=== PATIENT | male | born 1955 | race Caucasian/White ===

== ENCOUNTER 2019-04-26 08:57 | Outpatient (CLI) | payer MEDICARE, SELFPAY ==
[2019-04-26 09:17] LABS: Add Urine Microscopic? YES; Appearance Urine Clear (Clear); Bilirubin Urine Negative (Negative); Blood Urine Negative (Negative); Color Urine Yellow (Yellow); Glucose Urine UA Negative (Negative); Ketones Urine Negative (Negative); Leukocyte Esterase Ur Trace (Negative); Nitrate Urine Negative (Negative); Protein Urine Negative (Negative); Specific Grav Ur 1.015 (1.010-1.020); Urobilinogen Urine 0.2 mg/dL (0.2-1.0); pH Urine 7.5 (5.0-8.0)
[2019-04-26 09:23] LABS: RBC Urine 0-2 /hpf (0-2); Squamous Epithelial Cell Urine Rare /hpf (Few); WBC Urine 0-3 /hpf (0-3)
[2019-04-26 09:24] LABS: Bacteria Urine None seen /hpf
[2019-04-26 09:25] LABS: Creatinine Urine 64.01 mg/dL (40-278)
[2019-04-26 09:27] LABS: Hemoglobin A1C 6.1 % (<5.7)
[2019-04-26 09:28] LABS: MALB Creatinine Ratio 21.8 mg/g (0-30)
[2019-04-26 09:58] LABS: Alanine Aminotransferase 61 U/L (16-63); Albumin Level 4.2 g/dL (3.4-5.0); Alkaline Phosphatase 81 U/L (46-116); Anion Gap 14.2 mmol/L (7-16); Aspartate Amino Transferase 42 U/L (15-37); Bilirubin,Total 1.1 mg/dL (0.00-1.00); Blood Urea Nitrogen 9 mg/dL (7-18); Calcium 9.3 mg/dL (8.5-10.1); Carbon Dioxide 28 mmol/L (21-32); Chloride 99 mmol/L (98-108); Cholesterol 157 mg/dL (0-200); Creatine Kinase 447 U/L (39-308); Estimated Glomerular Filt Rate > 60; Glucose 104 mg/dL (70-99); HDL Direct 49 mg/dL (40-60); LDL Cholesterol Calculated 94 mg/dL (<130); Osmolality Calculated 282 mOsm/kg (285-295); Potassium 4.2 mmol/L (3.5-5.1); Sodium 137 mmol/L (136-145); Total Protein 7.2 g/dL (6.4-8.2); Triglycerides 69 mg/dL (0-150)
== END 2019-04-26 08:58 | disposition home or self-care (01) ==
PROVIDERS: PCP Internal Medicine; Visit Provider Internal Medicine
DX: E78.2 Mixed hyperlipidemia (principal); I10 Essential (primary) hypertension; R73.01 Impaired fasting glucose
CPT/HCPCS: 36415; 80053; 80061; 81001; 82043; 82550; 83036

== ENCOUNTER 2019-12-04 07:52 | Outpatient (CLI) | payer MEDICARE, SELFPAY ==
[2019-12-04 08:11] LABS: Add Urine Microscopic? NO; Appearance Urine Clear (Clear); Bilirubin Urine Negative (Negative); Blood Urine Negative (Negative); Color Urine Yellow (Yellow); Glucose Urine UA Negative (Negative); Ketones Urine Negative (Negative); Leukocyte Esterase Ur Negative (Negative); Nitrate Urine Negative (Negative); Protein Urine Negative (Negative); Urobilinogen Urine 0.2 mg/dL (0.2-1.0)
[2019-12-04 08:21] LABS: Creatinine Urine 49.13 mg/dL (40-278); Hemoglobin A1C 5.5 % (<5.7); MALB Creatinine Ratio 26.4 mg/g (0-30); Microalbumin Urine Random < 13.0 mg/L
[2019-12-04 09:27] LABS: Alanine Aminotransferase 50 U/L (16-63); Alkaline Phosphatase 87 U/L (46-116); Anion Gap 11 mmol/L (8-16); Aspartate Amino Transferase 46 U/L (15-37); Bilirubin,Total 0.9 mg/dL (0.00-1.00); Blood Urea Nitrogen 11 mg/dL (7-18); Calcium 8.9 mg/dL (8.5-10.1); Carbon Dioxide 28 mmol/L (21-32); Chloride 99 mmol/L (98-108); Cholesterol 168 mg/dL (0-200); Creatine Kinase 370 U/L (39-308); Estimated Glomerular Filt Rate > 60; Glucose 104 mg/dL (70-99); HDL Direct 46 mg/dL (40-60); LDL Cholesterol Calculated 100 mg/dL (<130); Osmolality Calculated 285 mOsm/kg (285-295); Potassium 4.4 mmol/L (3.5-5.1); Prostate Specific Antigen 0.9 ng/mL (< OR = 4.0); Sodium 138 mmol/L (136-145); Total Protein 7.1 g/dL (6.4-8.2); Triglycerides 112 mg/dL (0-150)
== END 2019-12-04 07:53 | disposition home or self-care (01) ==
PROVIDERS: PCP Internal Medicine; Visit Provider Internal Medicine
DX: E78.2 Mixed hyperlipidemia (principal); E11.9 Type 2 diabetes mellitus without complications; I10 Essential (primary) hypertension; Z12.5 Encounter for screening for malignant neoplasm of prostate
CPT/HCPCS: 36415; 80053; 80061; 81003; 82043; 82550; 83036; 84153; G0103

== ENCOUNTER 2020-10-01 07:21 | Outpatient (CLI) | payer MEDICARE, OTHER, SELFPAY ==
[2020-10-01 07:43] LABS: Add Urine Microscopic? YES; Appearance Urine Clear (Clear); Bilirubin Urine 2+ (Negative); Blood Urine Negative (Negative); Color Urine Dark Yellow (Yellow); Glucose Urine UA Negative (Negative); Ketones Urine Trace (Negative); Leukocyte Esterase Ur Trace LEU/UL (Negative); Nitrate Urine Negative (Negative); Protein Urine Trace (Negative)
[2020-10-01 07:55] LABS: Bacteria Urine Trace /hpf; Mucus Urine Moderate /lpf; RBC Urine None seen /hpf (0-2); WBC Urine 0-3 /hpf (0-3)
[2020-10-01 08:42] LABS: Hemoglobin A1C 5.9 % (<5.7)
[2020-10-01 08:43] LABS: MALB Creatinine Ratio 16.4 mg/g (0-30); Microalbumin Urine Random 54.7 mg/L
[2020-10-01 09:03] LABS: Alanine Aminotransferase 52 U/L (16-63); Albumin Level 4.1 g/dL (3.4-5.0); Alkaline Phosphatase 91 U/L (46-116); Anion Gap 9 mmol/L (8-16); Aspartate Amino Transferase 37 U/L (15-37); Bilirubin,Total 1.1 mg/dL (0.00-1.00); Blood Urea Nitrogen 12 mg/dL (7-18); Calcium 9.3 mg/dL (8.5-10.1); Carbon Dioxide 31 mmol/L (21-32); Chloride 101 mmol/L (98-108); Cholesterol 161 mg/dL (0-200); Creatine Kinase 334 U/L (39-308); Estimated Glomerular Filt Rate > 60; Glucose 109 mg/dL (70-99); HDL Direct 41 mg/dL (40-60); LDL Cholesterol Calculated 96 mg/dL (<130); Osmolality Calculated 292 mOsm/kg (285-295); Potassium 4.1 mmol/L (3.5-5.1); Sodium 141 mmol/L (136-145); Total Protein 7.2 g/dL (6.4-8.2); Triglycerides 120 mg/dL (0-150)
== END 2020-10-01 07:22 | disposition home or self-care (01) ==
LOC: CHSLAB 07:25
PROVIDERS: PCP Internal Medicine; Visit Provider Internal Medicine
DX: E78.5 Hyperlipidemia, unspecified (principal); I10 Essential (primary) hypertension; R73.01 Impaired fasting glucose; R97.20 Elevated prostate specific antigen [PSA]
CPT/HCPCS: 36415; 80053; 80061; 81001; 82043; 82550; 83036; 84153

== ENCOUNTER 2021-04-09 08:06 | Outpatient (CLI) | payer MEDICARE, OTHER, SELFPAY ==
[2021-04-09 08:35] LABS: Add Urine Microscopic? NO; Appearance Urine Clear (Clear); Bilirubin Urine Negative (Negative); Blood Urine Negative (Negative); Color Urine Light Yellow (Yellow); Glucose Urine UA Negative (Negative); Ketones Urine Negative (Negative); Leukocyte Esterase Ur Negative (Negative); Nitrate Urine Negative (Negative); Protein Urine Negative (Negative); Specific Grav Ur 1.015 (1.010-1.020); Urobilinogen Urine 0.2 mg/dL (0.2-1.0); pH Urine 6.5 (5.0-8.0)
[2021-04-09 08:48] LABS: Creatinine Urine 95.44 mg/dL (40-278)
[2021-04-09 09:07] LABS: Alanine Aminotransferase 48 U/L (16-63); Albumin Level 3.9 g/dL (3.4-5.0); Alkaline Phosphatase 88 U/L (46-116); Anion Gap 10 mmol/L (8-16); Aspartate Amino Transferase 42 U/L (15-37); Bilirubin,Total 1.2 mg/dL (0.00-1.00); Blood Urea Nitrogen 11 mg/dL (7-18); Carbon Dioxide 30 mmol/L (21-32); Chloride 99 mmol/L (98-108); Cholesterol 181 mg/dL (0-200); Creatine Kinase 411 U/L (39-308); Estimated Glomerular Filt Rate > 60; Glucose 108 mg/dL (70-99); HDL Direct 44 mg/dL (40-60); LDL Cholesterol Calculated 112 mg/dL (<130); Osmolality Calculated 288 mOsm/kg (285-295); Potassium 4.3 mmol/L (3.5-5.1); Sodium 139 mmol/L (136-145); Total Protein 7.3 g/dL (6.4-8.2); Triglycerides 127 mg/dL (0-150)
== END 2021-04-09 08:07 | disposition home or self-care (01) ==
LOC: CHSLAB 08:08
PROVIDERS: PCP Internal Medicine; Visit Provider Internal Medicine
DX: E78.2 Mixed hyperlipidemia (principal); R73.01 Impaired fasting glucose; I10 Essential (primary) hypertension
CPT/HCPCS: 36415; 80053; 80061; 81003; 82043; 82550; 83036

== ENCOUNTER 2021-11-04 07:25 | Outpatient (CLI) | payer MEDICARE, OTHER, SELFPAY ==
[2021-11-04 07:36] LABS: Add Urine Microscopic? NO; Appearance Urine Clear (Clear); Basophils Absolute Auto 0.01 K/mm3 (0.00-0.10); Basophils Percent Auto 0.1 % (0.0-1.0); Bilirubin Urine Negative (Negative); Blood Urine Negative (Negative); Color Urine Yellow (Yellow); Eosinophils Absolute Auto 0.24 K/mm3 (0.02-0.50); Eosinophils Percent Auto 2.9 % (1.0-6.0); Glucose Urine UA Negative (Negative); Hematocrit 52.2 % (37.0-46.0); Hemoglobin 17.6 g/dL (12.4-15.3); Immature Granulocyte Absolute 0.03 K/mm3 (0.00-0.00); Immature Granulocyte Percent A 0.4 % (0.0-0.0); Ketones Urine Negative (Negative); Leukocyte Esterase Ur Negative LEU/UL (Negative); Lymphocytes Absolute Auto 1.47 K/mm3 (1.10-4.50); Lymphocytes Percent Auto 17.8 % (18.0-42.0); Mean Corpuscular HGB Conc 33.7 g/dL (32.0-36.0); Mean Corpuscular Hemoglobin 33.9 pg (27.0-31.0); Mean Corpuscular Volume 100.6 fL (78.0-102.0); Mean Platelet Volume 8.8 fl (8.7-11.0); Monocytes Absolute Auto 1.07 K/mm3 (0.10-0.90); Neutrophils Absolute Auto 5.4 K/mm3 (1.7-7.2); Neutrophils Percent Auto 65.8 % (50.0-70.0); Nitrate Urine Negative (Negative); Platelet Count Result 208 K/mm3 (150-420); Protein Urine Negative (Negative); Red Blood Count 5.19 M/mm3 (4.70-6.10); Red Cell Distribution Width 12.5 % (11.6-14.4); Specific Grav Ur 1.025 (1.010-1.020); White Blood Count 8.2 K/mm3 (4.8-10.8)
[2021-11-04 07:45] LABS: Hemoglobin A1C 5.9 % (<5.7)
[2021-11-04 08:57] LABS: Alanine Aminotransferase 41 U/L (16-63); Alkaline Phosphatase 99 U/L (46-116); Anion Gap 6 mmol/L (8-16); Aspartate Amino Transferase 36 U/L (15-37); Bilirubin,Total 1.1 mg/dL (0.00-1.00); Blood Urea Nitrogen 14 mg/dL (7-18); Calcium 8.8 mg/dL (8.5-10.1); Carbon Dioxide 33 mmol/L (21-32); Chloride 97 mmol/L (98-108); Cholesterol 160 mg/dL (0-200); Creatine Kinase 432 U/L (39-308); Estimated Glomerular Filt Rate > 60; Glucose 100 mg/dL (70-99); HDL Direct 47 mg/dL (40-60); LDL Cholesterol Calculated 92 mg/dL (<130); Osmolality Calculated 282 mOsm/kg (285-295); Potassium 4.1 mmol/L (3.5-5.1); Prostate Specific Antigen 1.3 ng/mL (< OR = 4.0); Sodium 136 mmol/L (136-145); Triglycerides 107 mg/dL (0-150)
[2021-11-04 13:02] LABS: MALB Creatinine Ratio 29.7 mg/g (0-30); Microalbumin Urine Random 66.2 mg/L
== END 2021-11-04 07:26 | disposition home or self-care (01) ==
LOC: CHSLAB 07:27
PROVIDERS: PCP Internal Medicine; Visit Provider Internal Medicine
DX: E78.2 Mixed hyperlipidemia (principal); I10 Essential (primary) hypertension; Z12.5 Encounter for screening for malignant neoplasm of prostate; N39.0 Urinary tract infection, site not specified; E11.9 Type 2 diabetes mellitus without complications
CPT/HCPCS: 36415; 80053; 80061; 81003; 82043; 82550; 83036; 84153; 85025; G0103

== ENCOUNTER 2022-04-10 15:06 | Emergency (ER) | payer MEDICARE, OTHER, SELFPAY ==
--- NOTE | ~2022-04-10 | XR_ITS ---
EXAM: XR hand LT min 3V DATE: 04/10/2022 15:56 HISTORY: DEEP LACERATION TO LATERAL BERRY SURFACE, PAIN TO THIS AREA . COMPARISON: None available. FINDINGS: Normal mineralization. No fracture or dislocation. No lytic or blastic lesion. Scattered d egenerative changes. No radiopaque foreign body. No erosion or periosteal change. Soft tissues within normal limits. IMPRESSION: No acute osseous finding in the left hand. Reviewed, dictated and finalized at location [facility] [employer] [facility]
[2022-04-10 15:10] VITALS: BP 153/86; PULSE 93; RESP 20; TEMP 37.2; O2SAT 90
--- NOTE | 2022-04-10 15:29 | ED.GENADULT ---
HPI - General Adult General Chief complaint: Extremity Injury, Upper Stated complaint: cut L hand Time Seen by Provider: 04/10/22 15:25 Source: patient Mode of arrival: ambulatory Limitations: no limitations History of Present Illness HPI narrative: Patient was working on a spring his carotids door with a tension-like go and caught him in his left dominant hand and cut the inside of his palm between the thumb and index finger. This caused flap laceration about 2 cm 2.5 cm long. Denies any loss of function says his tingling just a little bit on the wound. Mild pain. Denies any previous injury denies any wrist pain other other injuries . Patient has been healthy eating drinking stooling and voiding fine without rash or itching. Walking talking seeing and hearing fine. No cough fever sore throat runny nose or any other symptoms. Related Data Home Medications Medication Instructions Recorded Confirmed atorvastatin 40 mg tablet 40 mg PO DAILY 04/10/22 04/10/22 lisinopril 10 1 tablet PO DAILY 04/10/22 04/10/22 mg-hydrochlorothiazide 12.5 mg tablet Allergies Allergy/AdvReac Type Severity Reaction Status Date / Time No Known Allergies Allergy Verified 04/10/22 15:16 Review of Systems Review of Systems: review of systems Per HPI Exam Const: General: healthy appearing Nutritional Appearance: well nourished Orientation/consciousness: patient oriented x3 Limitations: no limitations Other: White male appears in no apparent distress his left hand shows a 2-2.5 cm flap laceration to the webspace between his thumb and index finger. Is mildly tender no active bleeding no foreign body seen. Is good strong strength with regards to flexion and extension of his tendons and fingers and wrist. Normal capillary refill. Radial pulses +2. He has full range of motion his fingers and wrist. He has no snuffbox tenderness. There is no swelling. He has normal sensation regards to radial median and ulnar nerve testing for motor and sensory. HENMT: Head: normal to inspection Ears: external ears normal Face/Nose/Sinus: Normal external nose present Face and sinus: normal facial exam Course Vital Signs Vital signs: Vital Signs Temperature 37.2 C 04/10/22 15:10 Pulse Rate 93 04/10/22 15:10 Respiratory Rate 20 04/10/22 15:10 Blood Pressure 153/86 H 04/10/22 15:10 Pulse Oximetry 90 04/10/22 15:10 Oxygen Delivery Room Air 04/10/22 15:10 Temperature 37.2 C 04/10/22 15:10 Pulse Rate 93 04/10/22 15:10 Respiratory Rate 20 04/10/22 15:10 Blood Pressure 153/86 H 04/10/22 15:10 Pulse Oximetry 90 04/10/22 15:10 Oxygen Delivery Room Air 04/10/22 15:10 Procedures Laceration Laceration 1: Date: 04/10/22 Time: 16:25 Site: hand Side (If applicable): left Size (cm): 2.5 Description: flap Depth: simple, single layer Local Anesthetic: lidocaine 1% ( 8 mL without epinephrine) Amount of anesthesia used (mL): 8 Pre-repair: wound explored and irrigated extensively ====== Skin Level ====== Skin layer closed with: nylon Size (cm): 4-0 Number of sutures: 5 Technique: simple, interrupted ====== Subcutaneous Layer ====== Technique: simple, interrupted ====== Muscle Layer ====== ====== Tendon Layer ====== Dressing: nonstick dressing was applied patient tolerated procedure well. Medical Decision Making MDM Narrative Medical decision making narrative: Patient sustained a add laceration to his left non dominant hand, fortunately between webspace of his thumb and index finger and did not injure any vital structures. Stay no loss of function. Is given a tetanus shot is given 5 sutures to repair his 2.5 cm laceration. Differential Diagnosis Differential Diagnosis: Fracture dislocation laceration infection foreign body Vital Signs Vital Signs: Vital Signs T
[2022-04-10] MEDS: TETANUS,DIPHTHERIA,AC PERTUSSIS ADULT 0.5 ML (ADACEL) IM (15:37)
[2022-04-10] MEDS: LIDOCAINE HCL 1% LOCAL INJ 10 ML VIAL INFILTRATE (15:38)
[2022-04-10 16:31] VITALS: BP 153/86; PULSE 89; RESP 16; TEMP 36.4; O2SAT 90
== END 2022-04-10 16:39 | disposition home or self-care (01) ==
PROVIDERS: Emergency Provider Emergency Medicine; PCP Internal Medicine
DX: S61.412A Laceration without foreign body of left hand, initial encounter (principal); W22.8XXA Striking against or struck by other objects, initial encounter; Z23 Encounter for immunization
CPT/HCPCS: 12001; 73130; 90471; 90715; 99283

== ENCOUNTER 2022-06-21 07:30 | Outpatient (CLI) | payer MEDICARE, OTHER, SELFPAY ==
[2022-06-21 07:46] LABS: Basophils Absolute Auto 0.02 K/mm3 (0.00-0.10); Basophils Percent Auto 0.2 % (0.0-1.0); Eosinophils Absolute Auto 0.27 K/mm3 (0.02-0.50); Eosinophils Percent Auto 3.4 % (1.0-6.0); Hematocrit 55.8 % (37.0-46.0); Hemoglobin 18.4 g/dL (12.4-15.3); Immature Granulocyte Absolute 0.03 K/mm3 (0.00-0.00); Immature Granulocyte Percent A 0.4 % (0.0-0.0); Lymphocytes Absolute Auto 1.33 K/mm3 (1.10-4.50); Lymphocytes Percent Auto 16.6 % (18.0-42.0); Mean Corpuscular Hemoglobin 33.5 pg (27.0-31.0); Mean Corpuscular Volume 101.5 fL (78.0-102.0); Mean Platelet Volume 9.3 fl (8.7-11.0); Monocytes Absolute Auto 1.07 K/mm3 (0.10-0.90); Monocytes Percent Auto 13.4 % (2.0-11.0); Neutrophils Absolute Auto 5.3 K/mm3 (1.7-7.2); Platelet Count Result 213 K/mm3 (150-420); Red Cell Distribution Width 13.1 % (11.6-14.4)
[2022-06-21 07:55] LABS: Appearance Urine Clear (Clear); Bilirubin Urine Negative (Negative); Blood Urine Negative (Negative); Color Urine Yellow (Yellow); Glucose Urine UA Negative (Negative); Ketones Urine Negative (Negative); Leukocyte Esterase Ur Negative (Negative); Nitrate Urine Negative (Negative); Protein Urine Negative (Negative); Specific Grav Ur 1.015 (1.010-1.020); Urobilinogen Urine 0.2 mg/dL (0.2-1.0)
[2022-06-21 08:02] LABS: Add Urine Microscopic? NO; Hemoglobin A1C 5.8 % (<5.7)
[2022-06-21 08:26] LABS: Alanine Aminotransferase 37 U/L (16-63); Albumin Level 3.8 g/dL (3.4-5.0); Alkaline Phosphatase 86 U/L (46-116); Anion Gap 7 mmol/L (8-16); Aspartate Amino Transferase 31 U/L (15-37); Bilirubin,Total 0.8 mg/dL (0.00-1.00); Blood Urea Nitrogen 14 mg/dL (7-18); Carbon Dioxide 33 mmol/L (21-32); Chloride 100 mmol/L (98-108); Cholesterol 165 mg/dL (0-200); Creatine Kinase 305 U/L (39-308); Estimated Glomerular Filt Rate > 60; Glucose 111 mg/dL (70-99); HDL Direct 44 mg/dL (40-60); LDL Cholesterol Calculated 98 mg/dL (<130); Osmolality Calculated 291 mOsm/kg (285-295); Potassium 4.5 mmol/L (3.5-5.1); Sodium 140 mmol/L (136-145); Total Protein 7.2 g/dL (6.4-8.2); Triglycerides 115 mg/dL (0-150)
== END 2022-06-21 07:31 | disposition home or self-care (01) ==
LOC: CHSLAB 07:32
PROVIDERS: PCP Internal Medicine; Visit Provider Internal Medicine
DX: I10 Essential (primary) hypertension (principal); E78.2 Mixed hyperlipidemia; R73.01 Impaired fasting glucose; M54.50 Low back pain, unspecified
CPT/HCPCS: 36415; 80053; 80061; 81003; 82550; 83036; 85025

== ENCOUNTER 2022-09-07 07:26 | Outpatient (CLI) | payer MEDICARE, SELFPAY ==
--- NOTE | ~2022-09-07 | XR_ITS ---
Clinical Indication: Obesity, preoperative evaluation PA and lateral views of the chest: Comparison: 04/28/2011 Findings: Stable calcified right basilar granuloma present. The lungs are otherwise clear, without ev idence of focal consolidation or pleural effusion. Cardiomediastinal silhouette is stable. Bones and soft tissues are unremarkable. Impression: No significant abnormality seen. Reviewed, dictated and finalized at [facility]. Impression: No significant abnormality seen.
--- NOTE | 2022-09-07 07:51 | ECG_ITS ---
Measurements Intervals [place] Rate: 90 P: 67 [place]: 144 QRS: 248 QRSD: 113 T: 55 QT: 367 QTc: 450 Interpretive Statements SINUS RHYTHM RIGHT AXIS DEVIATION INCOMPLETE RIGHT BUNDLE BRANCH BLOCK CANNOT RULE OUT SEPTAL INFARCT, AGE INDETERMINATE BASELINE ARTIFACT- III, AVF ABNORMAL ECG NO PREVIOUS ECG AVAILABLE FOR COMPARISON Electronically Signed On 09-07-2022 9:23:01 CDT by Oseas Rick D.O.
[2022-09-07 07:55] LABS: Basophils Absolute Auto 0.03 K/mm3 (0.00-0.10); Basophils Percent Auto 0.4 % (0.0-1.0); Eosinophils Percent Auto 2.7 % (1.0-6.0); Hematocrit 59.2 % (37.0-46.0); Hemoglobin 19.8 g/dL (12.4-15.3); Immature Granulocyte Absolute 0.01 K/mm3 (0.00-0.00); Immature Granulocyte Percent A 0.1 % (0.0-0.0); Lymphocytes Percent Auto 14.7 % (18.0-42.0); Mean Corpuscular HGB Conc 33.4 g/dL (32.0-36.0); Mean Corpuscular Hemoglobin 34.2 pg (27.0-31.0); Mean Corpuscular Volume 102.2 fL (78.0-102.0); Mean Platelet Volume 8.9 fl (8.7-11.0); Monocytes Absolute Auto 0.84 K/mm3 (0.10-0.90); Monocytes Percent Auto 11.3 % (2.0-11.0); Neutrophils Absolute Auto 5.3 K/mm3 (1.7-7.2); Neutrophils Percent Auto 70.8 % (50.0-70.0); Platelet Count Result 219 K/mm3 (150-420); Red Blood Count 5.79 M/mm3 (4.70-6.10); Red Cell Distribution Width 13.7 % (11.6-14.4); White Blood Count 7.5 K/mm3 (4.8-10.8)
[2022-09-07 08:09] LABS: Partial Thromboplastin Time 27.4 SEC (23.90-30.70); Prothrombin Time 11.2 Seconds (9.50-12.10)
[2022-09-07 08:25] LABS: Hemoglobin A1C 5.8 % (<5.7)
[2022-09-07 08:54] LABS: Alanine Aminotransferase 47 U/L (16-63); Alkaline Phosphatase 97 U/L (46-116); Anion Gap 9 mmol/L (8-16); Aspartate Amino Transferase 41 U/L (15-37); Bilirubin,Total 1.4 mg/dL (0.00-1.00); Blood Urea Nitrogen 11 mg/dL (7-18); Calcium 9.4 mg/dL (8.5-10.1); Carbon Dioxide 32 mmol/L (21-32); Chloride 100 mmol/L (98-108); Cholesterol 166 mg/dL (0-200); Estimated Glomerular Filt Rate > 60; Ferritin 498 ng/mL (26-388); Glucose 109 mg/dL (70-99); HDL Direct 47 mg/dL (40-60); Iron 149 ug/dL (65-175); LDL Cholesterol Calculated 100 mg/dL (<130); Magnesium 1.9 mg/dL (1.8-2.4); Osmolality Calculated 292 mOsm/kg (285-295); Percent Iron Saturation 48 % (12-57); Potassium 4.3 mmol/L (3.5-5.1); Sodium 141 mmol/L (136-145); Thyroid Stimulating Hormone 4.05 uIU/mL (0.36-3.74); Total Protein 7.3 g/dL (6.4-8.2); Triglycerides 97 mg/dL (0-150); Vitamin B12 378 pg/mL (193-986)
[2022-09-07 09:20] LABS: Folic Acid 18.8 ng/mL (8.6->20)
[2022-09-10 09:37] LABS: Transferrin 248 mg/dL (188-341)
[2022-09-12 11:18] LABS: Vitamin B1 9 nmol/L (8-30)
[2022-09-12 23:50] LABS: Parathyroid Intact 54 pg/mL (14-64)
[2022-09-13 19:26] LABS: Vitamin D 25 Hydroxy 13 ng/mL (30-100)
== END 2022-09-07 07:27 | disposition home or self-care (01) ==
PROVIDERS: PCP Internal Medicine
DX: Z01.818 Encounter for other preprocedural examination (principal); E66.01 Morbid (severe) obesity due to excess calories; I45.19 Other right bundle-branch block; R94.31 Abnormal electrocardiogram [ECG] [EKG]
CPT/HCPCS: 36415; 71046; 80053; 80061; 82306; 82607; 82728; 82746; 83036; 83540; 83550; 83735; 83970; 84425; 84443; 84466; 85025; 85610; 85730; 93005

== ENCOUNTER 2022-10-14 10:14 | Outpatient (CLI) | payer MEDICARE, SELFPAY ==
[2022-10-14 11:14] LABS: Alanine Aminotransferase 75 U/L (16-63); Albumin Level 4.2 g/dL (3.4-5.0); Alkaline Phosphatase 94 U/L (46-116); Anion Gap 10 mmol/L (8-16); Aspartate Amino Transferase 70 U/L (15-37); Bilirubin,Total 1.4 mg/dL (0.00-1.00); Blood Urea Nitrogen 15 mg/dL (7-18); Calcium 9.5 mg/dL (8.5-10.1); Carbon Dioxide 29 mmol/L (21-32); Chloride 99 mmol/L (98-108); Estimated Glomerular Filt Rate > 60; Glucose 97 mg/dL (70-99); Osmolality Calculated 286 mOsm/kg (285-295); Potassium 4.4 mmol/L (3.5-5.1); Sodium 138 mmol/L (136-145); Total Protein 7.2 g/dL (6.4-8.2)
== END 2022-10-14 10:15 | disposition home or self-care (01) ==
LOC: CHSLAB 10:17
PROVIDERS: PCP Internal Medicine
DX: R89.9 Unspecified abnormal finding in specimens from other organs, systems and tissues (principal)
CPT/HCPCS: 36415; 80053

== ENCOUNTER 2022-10-26 07:50 | Outpatient (CLI) | payer MEDICARE, SELFPAY ==
[2022-10-26 08:01] LABS: Hematocrit 51.3 % (37.0-46.0); Hemoglobin 17.2 g/dL (12.4-15.3); Mean Corpuscular HGB Conc 33.5 g/dL (32.0-36.0); Mean Corpuscular Hemoglobin 33.7 pg (27.0-31.0); Mean Corpuscular Volume 100.4 fL (78.0-102.0); Mean Platelet Volume 9.3 fl (8.7-11.0); Platelet Count Result 229 K/mm3 (150-420); Red Blood Count 5.11 M/mm3 (4.70-6.10); White Blood Count 6.5 K/mm3 (4.8-10.8)
[2022-10-26 08:34] LABS: Band Neutrophils Percent 0 % (0-6); Eosinophils Absolute Manual 0.13 K/mm3 (0.02-0.5); Eosinophils Percent Manual 2 % (1-6); Lymphocytes Absolute Manual 1.36 K/mm3 (1.1-4.5); Lymphocytes Percent Manual 21 % (18-44); Monocytes Absolute Manual 1.23 K/mm3 (0.1-0.90); Monocytes Percent Manual 19 % (3-9); Neutrophils Percent Manual 57 % (46-73); Total Cells Counted 100
[2022-10-26 08:35] LABS: Basophils Absolute Manual 0.06 K/mm3 (0-0.1); Basophils Percent Manual 1 % (0-1); Platelet Estimate Adequate (Adequate)
== END 2022-10-26 07:51 | disposition home or self-care (01) ==
LOC: CHSLAB 07:54
PROVIDERS: PCP Internal Medicine
DX: D58.2 Other hemoglobinopathies (principal)
CPT/HCPCS: 36415; 85025

== ENCOUNTER 2022-11-02 07:25 | Outpatient (CLI) | payer MEDICARE, SELFPAY ==
--- NOTE | ~2022-11-02 | NM_ITS ---
EXAMINATION: NM osorio stress w perfusion DATE: 11/02/2022 10:41 INDICATION: Dyspnea on exertion TECHNIQUE: Rest images were obtained in supine position following intravenous administration of 9.7 m Ci Tc99m tetrofosmin (Myoview). The patient was infused intravenously with Lexiscan (Regadenoson). Th en, 30.5 mCi Tc99m tetrofosmin (Myoview) was administered intravenously, and stress images were obtai nathaniel initially in supine position with repeat images performed in the prone position. Data was reconst ructed into short axis and horizontal and vertical long axis SPECT images. Gated SPECT images were al so obtained. COMPARISON: None. FINDINGS: There is a small perfusion defect along the inferior wall on the rest images and larger def ect on the post stress images, both obtained in the supine position which normalize on prone imaging consistent with diaphragmatic attenuation artifact. No significant perfusion defects on the prone pos t stress imaging to suggest ischemia or infarct. There is normal left ventricular chamber size, wall motion and ejection fraction. Left ventricular ejection fraction measures >70%. IMPRESSION: 1. Likely diaphragmatic attenuation artifact on imaging obtained in the supine position. Normal myoca rdial perfusion on post stress imaging obtained in the prone position without evident perfusion defec ts to suggest ischemia or infarct. 2. Left ventricular ejection fraction measuring >70%. Reviewed, dictated and finalized at location A. IMPRESSION: 1. Likely diaphragmatic attenuation artifact on imaging obtained in the supine position. Normal myocardial perfusion on post stress imaging obtained in the pr one position without evident perfusion defects to suggest ischemia or infarct. 2. Left ventricular ejection fraction measuring >70%.
--- NOTE | 2022-11-02 07:31 | ECHO_ITS ---
Patient Info Name: Jayesh Anderson Age: 67 years : 1955 Gender: Male Ht: 72 in Wt: 350 lbs BSA: 2.92 m2 HR: 83 bpm BP: 144 / 81 mmHg Heart Rhythm: Sinus Rhythm Technical Quality: Fair Exam Date: 11/02/2022 7:42 AM Exam Location: [facility] Pulmonary Patient Status: Outpatient Admit Date: 11/02/2022 Staff Ordering Physician: Oseas Rick DO [employer] Installer: Lakeshia Valentine RDCS Attending Provider: Oseas Rick DO Referring Physician: Prabhjot SEGOVIA; Exam Type: CA echo dop color flow w con Study Info Indications R06.09 - Other forms of dyspnea Complete two-dimensional, color flow and Doppler transthoracic echocardiogram is performed with contrast to opacify the left ventricle and to improve the deliniation of the left ventricle endocardial borders. Contrast/Agitated Saline Contrast/Ag. Saline: Definity Amount: 3.00 ml Administered By: Lakeshia Valentine RDCS Existing IV Access: Yes IV Access Condition: patent with no signs of infiltration Summary 1. Definity contrast administered improved wall motion interpretation. 2. Ventricular septum is sigmoid shaped. No LVOT obstruction. 3. Left ventricular chamber dimension is normal. 4. Left ventricular systolic function is normal, estimated at 60-65%. 5. The left ventricular diastolic function is grade I diastolic dysfunction. 6. E/e' 15 is elevated. 7. The aortic valve is not well visualized. Cannot determine number of aortic valve leaflets. 8. There is mild aortic valve stenosis based on a peak velocity of 261.83 cm/s, mean gradient of 13 mmHg, and aortic valve area of 1.74 cm2. 9. There is moderate aortic valve sclerosis. 10. No pulmonary hypertension, estimated pulmonary arterial systolic pressure is 16 mmHg. Left Ventricle E/e' 15 is elevated. Ventricular septum is sigmoid shaped. No LVOT obstruction. Definity contrast administered improved wall motion interpretation. Left ventricular chamber dimension is normal. Left ventricular systolic function is normal, estimated at 60-65%. The left ventricular diastolic function is grade I diastolic dysfunction. Right Ventricle Right ventricular systolic function is normal and with normal TAPSE 3.2 cm. Right ventricular chamber dimension is normal. Left Atria Left atrial chamber dimension is normal. Right Atria Right atrial chamber dimension is normal. Aortic Valve The aortic valve is not well visualized. Cannot determine number of aortic valve leaflets. There is mild aortic valve stenosis based on a peak velocity of 261.83 cm/s, mean gradient of 13 mmHg, and aortic valve area of 1.74 cm2. There is moderate aortic valve sclerosis. There is no aortic valve regurgitation. Pulmonic Valve There is no pulmonic regurgitation. Mitral Valve There is no mitral valve stenosis. There is no mitral valve regurgitation. Tricuspid Valve There is no tricuspid valve regurgitation. No pulmonary hypertension, estimated pulmonary arterial systolic pressure is 16 mmHg. Pericardium/Pleural There is no pericardial effusion. Inferior Vena Cava Normal inferior vena cava with >50% collapse upon inspiration consistent with normal right atrial pressure, 5 mmHg. Aorta The aortic root size at the sinus of Valsalva is normal. Left Ventricular Outflow Tract Name Value Normal LVOT 2D
--- NOTE | 2022-11-02 07:33 | EST_ITS ---
Patient Info Name: Jayesh Anderson Age: 67 years : 1955 Gender: Male Ht: 72 in Wt: 350 lbs BSA: 2.92 m2 HR: 77 bpm BP: 123 / 71 mmHg Heart Rhythm: Sinus Rhythm Exam Date: 11/02/2022 9:19 AM Exam Location: [facility] Stress Patient Status: Outpatient Admit Date: 11/02/2022 Staff Ordering Physician: Oseas Rick DO Attending Provider: Oseas Rick DO Exercise Technologist: Tricia Mark CT Exercise Physician: Oseas Rick DO Exam Type: CA stress osorio w NM Study Info Indications R06.09 - Other forms of dyspnea A regadenoson stress test was performed. Summary 1. 1. Negative lexiscan stress test for ischemic ST changes by ECG criteria. 2. 2. Stable hemodynamics throughout the test. 3. 3. Nuclear scan to follow and will be reported separately. Please correlate with it. 4. 4. Patient informed of the above results. Protocol: Lexiscan Stress ECG Details Stage: REST Duration (min): 1 min : 31 sec HR (bpm): 75 SBP (mmHg): 123 DBP (mmHg): 71 Stage: REST Duration (min): 31 min : 23 sec HR (bpm): 78 SBP (mmHg): 123 DBP (mmHg): 71 Stage: STAGE 1 Duration (min): 1 min : 0 sec HR (bpm): 93 SBP (mmHg): 118 DBP (mmHg): 59 Stage: RECOVERY Duration (min): 1 min : 0 sec HR (bpm): 91 SBP (mmHg): 118 DBP (mmHg): 59 Stage: RECOVERY Duration (min): 2 min : 0 sec HR (bpm): 84 SBP (mmHg): 118 DBP (mmHg): 59 Stage: RECOVERY Duration (min): 3 min : 0 sec HR (bpm): 85 SBP (mmHg): 118 DBP (mmHg): 59 Stage: RECOVERY Duration (min): 3 min : 17 sec HR (bpm): 88 SBP (mmHg): 118 DBP (mmHg): 59 Rest HR: 78 bpm Peak HR: 94 bpm Rest Sys BP: 123 mmHg Peak Sys BP: 118 mmHg Max Pred HR: 151 bpm % Max Pred HR: 62 % Target HR: 128 bpm Max RPP: 11,092 bpm*mmHg Termination Reason: Completed protocol Cardiac Symptoms: None Total Time: 1 min : 0 sec Rest [place] BP: 71 mmHg Peak [place] BP: 59 mmHg Total Dose: 0.4 mg Resting ECG Sinus rhythm, RBBB. Stress ECG No ST changes. Arrhythmias None. Report Signatures
[2022-11-02] MEDS: PERFLUTREN LIPID MICROSPHERES 1.5 ML VIAL DILUTED TO 10 ML TOTAL VOLUME IV PUSH (08:31)
--- NOTE | 2022-11-02 08:59 | IVDEFINITY ---
Prior to administration of IV Definity the patient was educated on the risks and benefits of the imaging enhancing agent including potential adverse side effects. The patient verbalized understanding. Allergies were verified. No exclusion criteria were identified and at least one of the following inclusion criteria were met: 1) physician request, 2) patient technically difficult to image (per the [place] [employer]chocardi[employer] guidelines of two or more segments not discernable within the apical view), or 3) questionable left ventricular function. ?
== END 2022-11-02 07:26 | disposition home or self-care (01) ==
PROVIDERS: PCP Internal Medicine; Visit Provider Internal Medicine Cardiovascular Disease
DX: R06.09 Other forms of dyspnea (principal); R94.39 Abnormal result of other cardiovascular function study; I35.8 Other nonrheumatic aortic valve disorders
CPT/HCPCS: 78452; 93017; A9502; C8929; J2785; Q9957

== ENCOUNTER 2022-12-30 10:08 | Outpatient (CLI) | payer MEDICARE, SELFPAY ==
[2022-12-30 10:24] LABS: Appearance Urine Clear (Clear); Bilirubin Urine Negative (Negative); Blood Urine Negative (Negative); Color Urine Yellow (Yellow); Glucose Urine UA Negative (Negative); Ketones Urine Negative (Negative); Leukocyte Esterase Ur Negative (Negative); Nitrate Urine Negative (Negative); Protein Urine Negative (Negative)
[2022-12-30 10:26] LABS: Basophils Absolute Auto 0.03 K/mm3 (0.00-0.10); Basophils Percent Auto 0.4 % (0.0-1.0); Eosinophils Absolute Auto 0.17 K/mm3 (0.02-0.50); Eosinophils Percent Auto 2.4 % (1.0-6.0); Hematocrit 42.9 % (37.0-46.0); Hemoglobin 14.9 g/dL (12.4-15.3); Immature Granulocyte Absolute 0.03 K/mm3 (0.00-0.00); Immature Granulocyte Percent A 0.4 % (0.0-0.0); Lymphocytes Absolute Auto 1.16 K/mm3 (1.10-4.50); Lymphocytes Percent Auto 16.2 % (18.0-42.0); Mean Corpuscular HGB Conc 34.7 g/dL (32.0-36.0); Mean Corpuscular Hemoglobin 34.9 pg (27.0-31.0); Mean Corpuscular Volume 100.5 fL (78.0-102.0); Mean Platelet Volume 9.3 fl (8.7-11.0); Monocytes Absolute Auto 0.86 K/mm3 (0.10-0.90); Neutrophils Absolute Auto 4.9 K/mm3 (1.7-7.2); Neutrophils Percent Auto 68.6 % (50.0-70.0); Platelet Count Result 208 K/mm3 (150-420); Red Blood Count 4.27 M/mm3 (4.70-6.10); Red Cell Distribution Width 12.9 % (11.6-14.4); White Blood Count 7.2 K/mm3 (4.8-10.8)
[2022-12-30 10:27] LABS: Add Urine Microscopic? NO
[2022-12-30 10:34] LABS: Creatinine Urine 96.53 mg/dL (40-278); MALB Creatinine Ratio 28.2 mg/g (0-30); Microalbumin Urine Random 27.3 mg/L
[2022-12-30 10:38] LABS: Hemoglobin A1C 5.9 % (<5.7)
[2022-12-30 11:11] LABS: Alanine Aminotransferase 73 U/L (16-63); Albumin Level 4.1 g/dL (3.4-5.0); Alkaline Phosphatase 100 U/L (46-116); Anion Gap 7 mmol/L (8-16); Aspartate Amino Transferase 40 U/L (15-37); Bilirubin,Total 1.6 mg/dL (0.00-1.00); Blood Urea Nitrogen 11 mg/dL (7-18); Calcium 9.6 mg/dL (8.5-10.1); Carbon Dioxide 34 mmol/L (21-32); Chloride 97 mmol/L (98-108); Cholesterol 167 mg/dL (0-200); Creatine Kinase 306 U/L (39-308); Estimated Glomerular Filt Rate > 60; Glucose 96 mg/dL (70-99); HDL Direct 64 mg/dL (40-60); LDL Cholesterol Calculated 87 mg/dL (<130); Osmolality Calculated 285 mOsm/kg (285-295); Potassium 4.2 mmol/L (3.5-5.1); Sodium 138 mmol/L (136-145); Total Protein 7.5 g/dL (6.4-8.2); Triglycerides 80 mg/dL (0-150)
[2023-01-03 18:11] LABS: Vitamin D 25 Hydroxy 56 ng/mL (30-100)
== END 2022-12-30 10:09 | disposition home or self-care (01) ==
LOC: CHSLAB 10:14
PROVIDERS: PCP Internal Medicine
DX: E78.2 Mixed hyperlipidemia (principal); D75.1 Secondary polycythemia; E11.9 Type 2 diabetes mellitus without complications; I10 Essential (primary) hypertension; E55.9 Vitamin D deficiency, unspecified
CPT/HCPCS: 36415; 80053; 80061; 81003; 82043; 82306; 82550; 83036; 85025

== ENCOUNTER 2023-01-11 08:03 | Outpatient (CLI) | payer MEDICARE, SELFPAY ==
--- NOTE | ~2023-01-11 | US_ITS ---
Limited Abdominal Sonogram: Real-time sonographic imaging of the right upper quadrant was performed. Clinical History: Elevated liver enzymes Findings: The liver appears echogenic, with no evidence of mass lesion or bile duct dilatation. Main portal vein demonstrates normal direction of flow. The gallbladder is well distended, and and contai ns a small echogenic gallstone. No gallbladder wall thickening. The common bile duct measures 3 mm. The visualized pancreas, aorta, and IVC are unremarkable. Large right lower pole renal cyst is incide ntally noted, measuring 10.9 cm. Impression: Diffuse fatty infiltration of liver. Cholelithiasis. Large right lower pole renal cyst, as noted above. Reviewed, dictated and finalized at location [facility] Impression: Diffuse fatty infiltration of liver. Cholelithiasis. Large right lower pole renal cyst, as noted above.
== END 2023-01-11 08:04 | disposition home or self-care (01) ==
LOC: CHSIMG 08:05
PROVIDERS: PCP Internal Medicine
DX: R74.8 Abnormal levels of other serum enzymes (principal); K76.0 Fatty (change of) liver, not elsewhere classified; K80.20 Calculus of gallbladder without cholecystitis without obstruction; N28.1 Cyst of kidney, acquired
CPT/HCPCS: 76705

== ENCOUNTER 2023-05-12 07:08 | Outpatient (CLI) | payer MEDICARE, SELFPAY ==
[2023-05-12 07:44] LABS: Appearance Urine Clear (Clear); Basophils Absolute Auto 0.01 K/mm3 (0.00-0.10); Basophils Percent Auto 0.2 % (0.0-1.0); Bilirubin Urine Negative (Negative); Blood Urine Negative (Negative); Color Urine Light Yellow (Yellow); Eosinophils Absolute Auto 0.14 K/mm3 (0.02-0.50); Eosinophils Percent Auto 2.5 % (1.0-6.0); Glucose Urine UA Negative (Negative); Hemoglobin 13.6 g/dL (12.4-15.3); Immature Granulocyte Absolute 0.02 K/mm3 (0.00-0.00); Immature Granulocyte Percent A 0.4 % (0.0-0.0); Ketones Urine Negative (Negative); Leukocyte Esterase Ur Negative LEU/UL (Negative); Lymphocytes Percent Auto 23.6 % (18.0-42.0); Mean Corpuscular HGB Conc 33.2 g/dL (32-36); Mean Corpuscular Volume 96.5 fL (78.0-102.0); Mean Platelet Volume 9.8 fl (8.7-11.0); Monocytes Absolute Auto 0.51 K/mm3 (0.10-0.90); Monocytes Percent Auto 9.2 % (2.0-11.0); Neutrophils Absolute Auto 3.54 K/mm3 (1.70-7.20); Neutrophils Percent Auto 64.1 % (50.0-70.0); Nitrate Urine Negative (Negative); Platelet Count Result 207 K/mm3 (150-420); Protein Urine Negative (Negative); Red Blood Count 4.25 M/mm3 (4.70-6.10); Red Cell Distribution Width 12.5 % (11.6-14.4); Urobilinogen Urine 0.2 mg/dL (0.2-1.0); White Blood Count 5.5 K/mm3 (4.8-10.8)
[2023-05-12 07:46] LABS: Add Urine Microscopic? NO
[2023-05-12 07:49] LABS: Hemoglobin A1C 5.1 % (<5.7)
[2023-05-12 07:59] LABS: Creatinine Urine 61.03 mg/dL (40-278)
[2023-05-12 08:07] LABS: MALB Creatinine Ratio 21.3 mg/g (0-30); Microalbumin Urine Random < 13.0 mg/L
[2023-05-12 08:35] LABS: Alanine Aminotransferase 36 U/L (16-63); Albumin Level 4.2 g/dL (3.4-5.0); Alkaline Phosphatase 75 U/L (46-116); Anion Gap 9 mmol/L (4-12); Aspartate Amino Transferase 21 U/L (15-37); Bilirubin,Total 0.7 mg/dL (0.00-1.00); Blood Urea Nitrogen 14 mg/dL (7-18); Calcium 9.5 mg/dL (8.5-10.1); Carbon Dioxide 30 mmol/L (21-32); Chloride 103 mmol/L (98-108); Cholesterol 202 mg/dL (0-200); Estimated Glomerular Filt Rate > 60; Glucose 90 mg/dL (70-99); HDL Direct 56 mg/dL (40-60); Iron 94 ug/dL (65-175); LDL Cholesterol Calculated 129 mg/dL (<130); Osmolality Calculated 294 mOsm/kg (285-295); Percent Iron Saturation 43 % (12-57); Phosphorus 3.8 mg/dL (2.6-4.7); Potassium 4.1 mmol/L (3.5-5.1); Prostate Specific Antigen 1.8 ng/mL (< OR = 4.0); Sodium 142 mmol/L (136-145); Thyroid Stimulating Hormone 2.57 uIU/mL (0.36-3.74); Triglycerides 85 mg/dL (0-150); Vitamin B12 672 pg/mL (193-986)
[2023-05-12 08:40] LABS: Ferritin > 1000 ng/mL (26-388); Folic Acid > 20.0 ng/mL (8.6->20)
[2023-05-16 03:32] LABS: Transferrin 183 mg/dL (188-341)
[2023-05-17 17:36] LABS: Parathyroid Intact 30 pg/mL (14-64)
[2023-05-19 05:06] LABS: Vitamin B1 26 nmol/L (8-30)
[2023-05-24 12:46] LABS: Vitamin D 25 Hydroxy 45 ng/mL (30-100)
== END 2023-05-12 07:09 | disposition home or self-care (01) ==
LOC: CHSLAB 07:10
PROVIDERS: PCP Internal Medicine; Visit Provider Nurse Practitioner Family
DX: E11.9 Type 2 diabetes mellitus without complications (principal); I10 Essential (primary) hypertension; E78.2 Mixed hyperlipidemia; E79.0 Hyperuricemia without signs of inflammatory arthritis and tophaceous disease; Z12.5 Encounter for screening for malignant neoplasm of prostate; Z98.84 Bariatric surgery status; N39.0 Urinary tract infection, site not specified; E55.9 Vitamin D deficiency, unspecified
CPT/HCPCS: 36415; 80053; 80061; 81003; 82043; 82306; 82607; 82728; 82746; 83036; 83540; 83550; 83735; 83970; 84100; 84153; 84425; 84443; 84466; 85025; G0103

== ENCOUNTER 2023-07-21 09:28 | Outpatient (CLI) | payer MEDICARE, SELFPAY ==
[2023-07-21 09:44] LABS: Basophils Absolute Auto 0.01 K/mm3 (0.00-0.10); Basophils Percent Auto 0.2 % (0.0-1.0); Eosinophils Absolute Auto 0.12 K/mm3 (0.02-0.50); Eosinophils Percent Auto 1.9 % (1.0-6.0); Hematocrit 38.1 % (37.0-46.0); Hemoglobin 12.5 g/dL (12.4-15.3); Immature Granulocyte Absolute 0.01 K/mm3 (0.00-0.00); Immature Granulocyte Percent A 0.2 % (0.0-0.0); Lymphocytes Absolute Auto 1.26 K/mm3 (1.10-4.50); Lymphocytes Percent Auto 20.2 % (18.0-42.0); Mean Corpuscular HGB Conc 32.8 g/dL (32-36); Mean Corpuscular Hemoglobin 32.2 pg (27.0-31.0); Mean Corpuscular Volume 98.2 fL (78.0-102.0); Mean Platelet Volume 9.6 fl (8.7-11.0); Monocytes Absolute Auto 0.46 K/mm3 (0.10-0.90); Monocytes Percent Auto 7.4 % (2.0-11.0); Neutrophils Absolute Auto 4.39 K/mm3 (1.70-7.20); Neutrophils Percent Auto 70.1 % (50.0-70.0); Platelet Count Result 228 K/mm3 (150-420); Red Blood Count 3.88 M/mm3 (4.70-6.10); Red Cell Distribution Width 13.1 % (11.6-14.4); White Blood Count 6.3 K/mm3 (4.8-10.8)
[2023-07-21 10:43] LABS: Alanine Aminotransferase 41 U/L (16-63); Albumin Level 4.2 g/dL (3.4-5.0); Alkaline Phosphatase 70 U/L (46-116); Anion Gap 8 mmol/L (4-12); Aspartate Amino Transferase 27 U/L (15-37); Bilirubin,Total 0.5 mg/dL (0.00-1.00); Blood Urea Nitrogen 14 mg/dL (7-18); Calcium 9.4 mg/dL (8.5-10.1); Carbon Dioxide 31 mmol/L (21-32); Chloride 102 mmol/L (98-108); Cholesterol 202 mg/dL (0-200); Estimated Glomerular Filt Rate > 60; Glucose 109 mg/dL (70-99); HDL Direct 62 mg/dL (40-60); Iron 85 ug/dL (65-175); LDL Cholesterol Calculated 125 mg/dL (<130); Osmolality Calculated 293 mOsm/kg (285-295); Percent Iron Saturation 41 % (12-57); Potassium 4.4 mmol/L (3.5-5.1); Sodium 141 mmol/L (136-145); Thyroid Stimulating Hormone 2.55 uIU/mL (0.36-3.74); Total Protein 7.4 g/dL (6.4-8.2); Triglycerides 75 mg/dL (0-150); Vitamin B12 1000 pg/mL (193-986)
[2023-07-21 10:44] LABS: Ferritin > 1000 ng/mL (26-388); Folic Acid > 20.0 ng/mL (8.6->20)
[2023-07-21 15:42] LABS: Phosphorus 3.6 mg/dL (2.6-4.7)
[2023-07-22 13:32] LABS: Parathyroid Intact 26 pg/mL (16-77)
[2023-07-23 03:33] LABS: Vitamin D 25 Hydroxy 69 ng/mL (30-100)
[2023-07-25 13:22] LABS: Transferrin 166 mg/dL (188-341)
[2023-07-29 00:58] LABS: Vitamin B1 34 nmol/L (8-30)
== END 2023-07-21 09:29 | disposition home or self-care (01) ==
LOC: CHSLAB 09:30
PROVIDERS: PCP Internal Medicine; Visit Provider Nurse Practitioner Family
DX: R94.6 Abnormal results of thyroid function studies (principal); Z98.84 Bariatric surgery status; E11.9 Type 2 diabetes mellitus without complications; I10 Essential (primary) hypertension; E78.2 Mixed hyperlipidemia; E55.9 Vitamin D deficiency, unspecified; D75.1 Secondary polycythemia
CPT/HCPCS: 36415; 80053; 80061; 82306; 82607; 82728; 82746; 83540; 83550; 83735; 83970; 84100; 84425; 84443; 84466; 85025

== ENCOUNTER 2023-10-21 07:19 | Outpatient (CLI) | payer MEDICARE, SELFPAY ==
--- NOTE | ~2023-10-21 | CT_ITS ---
CT of the Abdomen and Pelvis: Indication: Abdominal pain Technique: 2.5 mm axial scans were obtained through the abdomen and pelvis following intravenous adm inistration of 100 cc of Omnipaque 350. Dose reduction technique was used on this scan by utilizing a utomated exposure control and iterative reconstruction technique. The dose-length product (DLP) was 5 98.66 mGy-cm. Findings: Scans through the lung bases are unremarkable. The liver, spleen, pancreas, gallbladder, and adrenal glands are within normal limits. Bilateral jesu l cysts are present, including large 11.6 cm right lower pole renal cyst. There are atherosclerotic c alcifications of the aorta. No lymphadenopathy. Probable prior bariatric surgery. There is marked, diffuse wall thickening of the large bowel, compat ible with extensive infectious/inflammatory colitis. There is extensive infiltration of pericolonic f at with small amount of abdominopelvic ascites. No definite abscess or free air seen. Images through the pelvis were performed. There is diffuse wall thickening of the urinary bladder. Pr ostate gland and seminal vesicles are unremarkable. Impression: Diffuse colitis, most likely infectious/inflammatory nature. No abscess or free air evident. Diffuse urinary bladder wall thickening. This could reflect reactive wall thickening due to adjacent colitis and inflammatory change versus primary cystitis/UTI. Correlate with urinalysis. Reviewed, dictated and finalized at location . Impression: Diffuse colitis, most likely infectious/inflammatory nature. No abscess or free air evident. Diffuse urinary bladder wall thickening. This could reflect reactive wall thick ening due to adjacent colitis and inflammatory change versus primary cystitis/U TI. Correlate with urinalysis.
== END 2023-10-21 07:20 | disposition home or self-care (01) ==
LOC: CHSIMG 07:21
PROVIDERS: PCP Internal Medicine; Visit Provider Internal Medicine
DX: R10.9 Unspecified abdominal pain (principal); K52.9 Noninfective gastroenteritis and colitis, unspecified; R93.41 Abnormal radiologic findings on diagnostic imaging of renal pelvis, ureter, or bladder
CPT/HCPCS: 74177; Q9967

== ENCOUNTER 2023-10-31 14:55 | Outpatient (CLI) | payer MEDICARE, SELFPAY ==
--- NOTE | ~2023-10-31 | CT_ITS ---
EXAMINATION: CT abdomen pelvis w con DATE: 10/31/2023 16:25 INDICATION: Acute abdominal pain. Fever and nausea. TECHNIQUE: Computed tomography (CT) of the abdomen and pelvis was performed with 100 mL Omnipaque 350 intravenous contrast. Automated exposure control and iterative reconstruction technique were employe d. The dose-length product was 627.74 mGy-cm. COMPARISON: CT abdomen and pelvis 10/21/2023 FINDINGS: The visualized portions of the lung bases demonstrate mild atelectasis. A calcified right l manuela nodule is consistent with old granulomatous disease. There is a small right pleural effusion. The heart size is normal. There are coronary artery calcifications. There are calcifications of the aort ic valve. No pericardial effusion. The liver, gallbladder, spleen, pancreas, and adrenal glands are n ormal. There are cysts in the kidneys measuring up to 12.0 cm on the right. There is calcified athero sclerosis of the aorta and many of the other arteries. The prostate is mildly enlarged. There is a ri ght inguinal hernia containing fat. There are scattered diverticula in the colon. There is wall thick ening throughout the colon, consistent with colitis. The appendix is normal. There are surgical goldsmith es of the stomach. There is a small sliding hiatal hernia. There is mild left para-aortic lymphadenop athy, likely reactive. There is trace ascites. There is edema of the intra-abdominal fat and body wal l fat. There is severe lumbar spondylosis. There are bridging endplate osteophytes at multiple levels in the spine, consistent with diffuse idiopathic skeletal hyperostosis (DISH). IMPRESSION: 1. Pancolitis. 2. Small right pleural effusion. Reviewed, dictated and finalized at location A.
[2023-10-31 15:34] LABS: Hematocrit 35.1 % (37.0-46.0); Hemoglobin 12.2 g/dL (12.4-15.3); Mean Corpuscular HGB Conc 34.8 g/dL (32-36); Mean Corpuscular Hemoglobin 34.5 pg (27.0-31.0); Mean Corpuscular Volume 99.2 fL (78.0-102.0); Mean Platelet Volume 7.9 fl (8.7-11.0); Platelet Count Result 337 K/mm3 (150-420); Red Blood Count 3.54 M/mm3 (4.70-6.10); Red Cell Distribution Width 13.1 % (11.6-14.4); White Blood Count 9.3 K/mm3 (4.8-10.8)
[2023-10-31 16:00] LABS: Alanine Aminotransferase 26 U/L (16-63); Albumin Level 2.3 g/dL (3.4-5.0); Alkaline Phosphatase 122 U/L (46-116); Amylase 50 U/L (25-115); Anion Gap 8 mmol/L (4-12); Aspartate Amino Transferase 24 U/L (15-37); Bilirubin,Total 0.5 mg/dL (0.00-1.00); Blood Urea Nitrogen 12 mg/dL (7-18); Calcium 8.4 mg/dL (8.5-10.1); Carbon Dioxide 29 mmol/L (21-32); Chloride 99 mmol/L (98-108); Estimated Glomerular Filt Rate > 60; Glucose 70 mg/dL (70-99); Lipase 36 U/L (16-77); Osmolality Calculated 279 mOsm/kg (285-295); Potassium 3.5 mmol/L (3.5-5.1); Sodium 136 mmol/L (136-145); Total Protein 6.2 g/dL (6.4-8.2)
[2023-10-31 16:12] LABS: Lactic Acid Reflex 2.3 mmol/L (0.4-2.0)
[2023-10-31 16:37] LABS: Band Neutrophils Percent 5 % (0-6); Eosinophils Absolute Manual 0.74 K/mm3 (0.02-0.50); Eosinophils Percent Manual 8 % (1-6); Lymphocytes Absolute Manual 2.13 K/mm3 (1.1-4.5); Lymphocytes Percent Manual 23 % (18-44); Monocytes Absolute Manual 1.39 K/mm3 (0.1-0.90); Monocytes Percent Manual 15 % (3-9); Neutrophils Absolute Manual 5.02 K/mm3 (1.3-6.7); Neutrophils Percent Manual 49 % (46-73); Platelet Estimate Adequate (Adequate); Total Cells Counted 100
[2023-10-31 18:29] LABS: Reflex Lactic Acid Yes or No Add Lactic
== END 2023-10-31 14:56 | disposition home or self-care (01) ==
PROVIDERS: PCP Internal Medicine; Visit Provider Internal Medicine
DX: R10.9 Unspecified abdominal pain (principal); R50.9 Fever, unspecified; R11.0 Nausea; K52.9 Noninfective gastroenteritis and colitis, unspecified; J90 Pleural effusion, not elsewhere classified
CPT/HCPCS: 36415; 74177; 80053; 82150; 83605; 83690; 85025; 87040; Q9967

== ENCOUNTER 2023-10-31 17:49 | Inpatient (IN) | payer MEDICARE, SELFPAY ==
[2023-10-31] VITALS (11 sets, daily range): BP systolic 101–113; BP diastolic 52–68; PULSE 83–109; RESP 14–20; TEMP 36.6–37; O2SAT 97–100; BMI 26.3
--- NOTE | 2023-10-31 18:16 | ECG_ITS ---
Test Date: 2023-10-31 21:54:32 Measurements Intervals [place] Rate: 85 P: 79 NV: 151 QRS: -11 QRSD: 120 T: 18 QT: 354 QTc: 423 Interpretive Statements SINUS RHYTHM INTRAVENTRICULAR CONDUCTION DELAY BORDERLINE T WAVE ABNORMALITY- INFERIOR LEADS BASELINE ARTIFACT- I, III, AVR, AVL, AVF, V2 BORDERLINE ECG No previous ECG available for comparison Electronically Signed On 11-01-2023 05:34:48 CDT by Oseas Rick D.O.
--- NOTE | 2023-10-31 18:18 | ED.ABDPAIN ---
HPI - Abdominal Pain General Chief Complaint: Abdominal Pain <Linda MackaySherri Brandon [employer]ICA [employer] PRESS HELPER - Last Filed: 10/31/23 18:23> Stated Complaint: abd pain <Linda MackaySherri Brandon [employer] PRESS HELPER - Last Filed: 10/31/23 18:23> Time Seen by Provider: 10/31/23 18:00 <Linda Singh Roma [employer] PRESS HELPER - Last Filed: 10/31/23 18:23> Focused HPI: Patient is a 68-year-old male who presents to the ER with complaints of abdominal pain. He was seen by his primary care doctor earlier today he ordered a CT scan of his abdomen. Results showed patient has pancolitis, per his . Patient had gastric bypass surgery in January of 2023. He reports he has no complications since the procedure until 3 weeks ago. Patient reports at that time he started having multiple tiny, liquid bowel movements multiple times a day. He reports he has significant tenderness in his right upper and right lower abdominal quadrants. Patient is unsure as to whether or not he still has his appendix. Denies chest pain, shortness a breath, or other signs of illness. GENERAL: Well-appearing, well-nourished, and in no acute distress. HEAD: Normocephalic, atraumatic. CHEST: Clear to auscultation. ?No respiratory distress. HEART: Regular rate and rhythm.? NEURO: ?Alert and oriented x3. Patient screened in triage and initial orders placed.? ?Additional care and disposition to be based upon?diagnostic testing and treatment. <Linda CodieSherri Brandon APRN - Last Filed: 10/31/23 18:23> Focused HPI: Patient is a 68-year-old male who presents to the ER with complaints of abdominal pain. He was seen by his primary care doctor earlier today he ordered a CT scan of his abdomen. Results showed patient has pancolitis, per his . Patient had gastric bypass surgery in January of 2023. He reports he has no complications since the procedure until 3 weeks ago. Patient reports at that time he started having multiple tiny, liquid bowel movements multiple times a day. He reports he has significant tenderness in his right upper and right lower abdominal quadrants. Patient is unsure as to whether or not he still has his appendix. Reports he has had some low grade fevers. Denies chest pain, shortness a breath, or other signs of illness. GENERAL: Well-appearing, well-nourished, and in no acute distress. HEAD: Normocephalic, atraumatic. CHEST: Clear to auscultation. ?No respiratory distress. HEART: Regular rate and rhythm.? NEURO: ?Alert and oriented x3. Patient screened in triage and initial orders placed.? ?Additional care and disposition to be based upon?diagnostic testing and treatment. <Chula Tello PA-C - Last Filed: 10/31/23 22:25> Source: patient and family <Linda Brandon APRN - Last Filed: 10/31/23 18:23> Mode of arrival: wheelchair <Linda Brandon APRN - Last Filed: 10/31/23 18:23> Limitations: no limitations <Linda Brandon APRN - Last Filed: 10/31/23 18:23> Related Data Home Medications: Home Medications Medication Instructions Recorded Confirmed [id number] 45 mg-folic 1 cap PO DAILY 10/31/23 10/31/23 acid 800 mcg-vit K 120 mcg capsule (Bariatric Multivitamins) <Linda Brandon APRN - Last Filed: 10/31/23 18:23> Allergies/Adverse Reactions: Allergies Allergy/AdvReac Type Severity Reaction Status Date / Time No Known Allergies Allergy Verified 10/31/23 17:50 <Linda Brandon APRN - Last Filed: 10/31/23 18:23> Review of Systems Review of Systems: CONSTITUTIONAL: Denies fever GASTROINTESTINAL: Reports abdominal pain, nausea, and diarrhea. GENITOURINARY: Denies dysuria <Chula Tello PA-C - Last Filed: 10/31/23 22:25> All systems reviewed & are unremarkable except as noted in HPI and below <Chula Tello PA-C - Last Filed: 10/31/23 22:25> PMFSH Past Medical History Medical History: Medical History (Updated 10/31/23 @ 22:24 by Chula Tello PA-C) Dyslipidemia Hype
[2023-10-31 18:55] LABS: Hemoglobin 11.3 g/dL (14.0-18.0); Mean Corpuscular HGB Conc 34.2 g/dl (32-36); Mean Corpuscular Hemoglobin 34.3 pg (26-34); Mean Corpuscular Volume 100.3 fl (80-100); Mean Platelet Volume 8.5 fl (7.4-10.4); Platelet Count Result 329 k/mm3 (150-375); Red Blood Count 3.29 M/mm3 (4.6-6.20); Red Cell Distribution Width 13.2 % (11.5-14.5)
[2023-10-31 19:05] LABS: INR 1.1; Prothrombin Time 14.8 Seconds (11.1-14.7)
[2023-10-31 19:06] LABS: Partial Thromboplastin Time 34.6 Seconds (22.3-36.8)
[2023-10-31 19:07] LABS: Lactic Acid Reflex 0.9 mmol/L (0.7-2.0)
[2023-10-31 19:10] LABS: Alanine Aminotransferase 16 U/L (6-50); Albumin Level 2.7 g/dL (3.5-5.1); Alkaline Phosphatase 97 U/L (38-126); Anion Gap 8 mmol/L (4-12); Aspartate Amino Transferase 23 U/L (17-59); Bilirubin,Total 0.4 mg/dL (0.2-1.3); Blood Urea Nitrogen 12 mg/dL (9-20); Carbon Dioxide 24 mmol/L (22-30); Chloride 100 mmol/L (98-107); Estimated CRCL calculation 107 ml/min; Estimated Glomerular Filt Rate > 60; Glucose 109 mg/dL (65-110); Lipase 90 U/L (23-300); Potassium 3.4 mmol/L (3.4-5.0); Sodium 132 mmol/L (137-145)
[2023-10-31 19:17] LABS: Troponin I < 0.012 ng/mL (0.000-0.034)
[2023-10-31 19:52] LABS: Band Neutrophils Percent 14 % (0-6); Eosinophils Absolute Manual 0.56 K/mm3 (0.02-0.50); Eosinophils Percent Manual 7 % (0-4); Monocytes Percent Manual 15 % (3-9); Neutrophils Absolute Manual 4.24 K/mm3 (1.3-6.7); Neutrophils Percent Manual 39 % (46-73); Platelet Estimate Adequate (Adequate); Schistocytes None Seen; Total Cells Counted 100
[2023-10-31] MEDS: SODIUM CHLORIDE 0.9% IV 1,000 ML 999 ML IV CONT (20:35)
[2023-10-31] MEDS: ONDANSETRON INJ 4 MG/2 ML VIAL IV PUSH (20:36)
[2023-10-31] MEDS: MORPHINE SULFATE (*CRX) 4 MG/ML INJ IV PUSH (20:37)
[2023-10-31] MEDS: FAMOTIDINE 20 MG/2 ML VIAL IV PUSH (20:38)
[2023-10-31] MEDS: PANTOPRAZOLE SODIUM IV 40 MG VIAL IV PUSH (20:41)
[2023-10-31] MEDS: PIPERACILLN/TAZ 3.375GM/NS50ML 3.375 GM/50 ML BAG IVPB (21:35)
--- NOTE | 2023-10-31 22:33 | ADMGEN ---
This patient, Jayesh Anderson, was admitted to Medical Room 241-01. Patient/family oriented to hospital policies and general routines including ID bracelet, bed and alarms, visiting hours, pain management, procedures, bathroom and other care routines, personal items, smoking policy, room service/diet, and visiting hours. Information on how to activate the Rapid Response Team has been discussed. Patient/Family are encouraged to report perceived risks to care and to ask questions if they do not understand what they are told or what they should do.
--- NOTE | 2023-11-01 01:06 | PM.IMHP ---
H&P: HPI History of Present Illness Date/Time: 11/01/23 01:06 Chief Complaint: abdominal pain Narrative: Mr. Anderson is A very pleasant male with a history of previous obesity status post gastric bypass surgery in January 2023, no complications reported. He presents to [place] ER with complaint of abdominal pain on the left side for about a month now along with green watery diarrhea about 5 times per day. He has had poor appetite. He now experiences the urge to defecate many times per day but nearly nothing comes out. he denies blood per rectum. Workup demonstrated a hemodynamically stable male. Hemoglobin 12.2 on admission down to 11.3 On repeat, his baseline is in the 12 6. MCV 100.3. INR 1.1, sodium 132, serum creatinine 0.6. a CT abdomen pelvis with contrast conducted demonstrated lopez colitis and small right pleural effusion. Treatment given in the ER included 1 L normal saline bolus, morphine 4 mg IV x1, Protonix 40 mg IV x1, famotidine 20 mg IV x1, Zofran 4 mg IV x1, Zosyn 3.375 x1. Upon evaluation after this the patient rested comfortably in complained of only mild discomfort at the left upper and left lower quadrant and suprapubic region. Review of Systems Review of Systems: All systems reviewed & are unremarkable except as noted in HPI and below ( Subjective) [facility] Past Medical History Medical History (Updated 10/31/23 @ 22:24 by Chula Tello PA-C) Dyslipidemia Hypertension Surgical History Surgical History (Updated 10/31/23 @ 20:49 by Chula Tello PA-C) H/O gastric sleeve Family History Family History (Updated 10/31/23 @ 22:35 by Symone Fischer RN) Mother Acute myocardial infarction Colon cancer Diabetes mellitus Social History Social History Smoking status: Former smoker Alcohol intake: current Drinks per week: 14 Substance use: never Do You Feel Safe in your Home?: Yes Lack of Transportation: No Lack of Food: Never True Current Housing: I Have Housing Concerned About Future Housing: No Difficulty Paying Gas/Electric Bills: No Difficulty Paying for Meds: No Currently Unemployed: No Education: High School Diploma/GED Difficulty w/ Childcare or Family Care: No Spiritual care concerns: No Meds Home Medications and Allergies Home Medications Medication Instructions Recorded Confirmed Type arlgcvaq-[id number] 45 mg-folic 1 cap PO DAILY 10/31/23 10/31/23 History acid 800 mcg-vit K 120 mcg capsule (Bariatric Multivitamins) Allergies Allergy/AdvReac Type Severity Reaction Status Date / Time No Known Allergies Allergy Verified 10/31/23 17:50 Vital Signs Vital Signs - 24 hr 10/31/23 18:04 10/31/23 20:17 10/31/23 20:42 Temperature 98.6 F 97.9 F Pulse Rate 109 H 88 83 Respiratory Rate 18 20 16 Blood Pressure 109/62 113/68 113/68 Pulse Oximetry 100 97 Oxygen Delivery Room Air 10/31/23 20:20 10/31/23 20:31 10/31/23 20:46 Temperature Pulse Rate 87 92 86 Respiratory Rate 18 20 18 Blood Pressure 107/67 113/68 111/66 Pulse Oximetry 99 98 98 Oxygen Delivery 10/31/23 21:01 10/31/23 21:16 10/31/23 21:31 Temperature Pulse Rate 84 87 89 Respiratory Rate 14 20 20 Blood Pressure 108/63 105/62 101/58 L Pulse Oximetry 99 98 97 Oxygen Delivery 10/31/23 21:46 10/31/23 22:42 10/31/23 22:24 Temperature 98.6 F Pulse Rate 86 84 Respiratory Rate 20 17 Blood Pressure 107/61 103/52 L Pulse Oximetry 98 99 Oxygen Delivery Room Air Exam Const: General: comfortable and no acute distress Eyes: Pupils: Equal, round and reactive pupils present Neck: Neck: supple Resp: Effort & Inspection: normal respiratory effort Auscultation: clear to auscultation bilaterally Cardio: Rate: regular rate Rhythm: regular rhythm GI: Inspection: non-distended GI Palp: Yes Soft to palpation Auscultation: normal bowel sounds Other:
[2023-11-01 03:06] LABS: Toxigenic C. Diff NEGATIVE (NEGATIVE)
[2023-11-01] MEDS: SODIUM CHLORIDE 0.9% IV 1,000 ML 100 ML IV CONT ×2 (03:15→14:04)
[2023-11-01] MEDS: PIPERACILLN/TAZ 3.375GM/NS50ML 3.375 GM/50 ML BAG IVPB ×4 (03:16→21:03)
[2023-11-01 04:18] VITALS: BP 99/55; PULSE 76; RESP 17; TEMP 36.9; O2SAT 97
[2023-11-01 05:47] LABS: Hematocrit 31.5 % (42.0-52.0); Hemoglobin 10.8 g/dL (14.0-18.0); Mean Corpuscular HGB Conc 34.3 g/dl (32-36); Mean Corpuscular Hemoglobin 34.6 pg (26-34); Mean Platelet Volume 8.5 fl (7.4-10.4); Platelet Count Result 281 k/mm3 (150-375); Red Blood Count 3.12 M/mm3 (4.6-6.20); Red Cell Distribution Width 13.3 % (11.5-14.5); White Blood Count 7.8 K/mm3 (4.5-10.0)
[2023-11-01 06:21] LABS: Anion Gap 4 mmol/L (4-12); Blood Urea Nitrogen 8 mg/dL (9-20); Carbon Dioxide 29 mmol/L (22-30); Chloride 99 mmol/L (98-107); Estimated CRCL calculation 126 ml/min; Estimated Glomerular Filt Rate > 60; Glucose 77 mg/dL (65-110); Magnesium 1.8 mg/dL (1.6-2.3); Potassium 3.4 mmol/L (3.4-5.0); Sodium 132 mmol/L (137-145)
[2023-11-01 08:00] VITALS: BP 94/53; PULSE 72; RESP 16; TEMP 36.8; O2SAT 97
[2023-11-01] MEDS: PANTOPRAZOLE SODIUM IV 40 MG VIAL IV PUSH (08:17)
[2023-11-01] MEDS: MULTIVITAMINS /C LUTEIN (CENTRUM SILVER) TABLET *BKC 1 TAB PO (08:17)
--- NOTE | 2023-11-01 11:30 | PM.IMPN ---
Progress Note: A&P Assessment and Plan (1) Colitis: Code(s): K52.9 - Noninfective gastroenteritis and colitis, unspecified Status: Acute Assessment and Plan: -CT abdomen pelvis with contrast conducted demonstrated lopez colitis and small right pleural effusion. -Patient report that abdominal pain is improving. Pain is a 4 when pushing on stomach and with some activity, pain is frequent, and burning. -WBC: 7.8, H&H 10.8/31.5, Sodium 132, Stool for c.diff negative. Stool Lactoferrin pending. -GI to see patient today. -NS@100 ml/hr. -Clear liquid diet -Protonix 40 mg IVPB. (2) Nausea: Code(s): R11.0 - Nausea Status: Acute Assessment and Plan: -Added ondansetron 4 mg q4 PRN IVP. -clear liquid diet. Subjective Date/time seen: 11/01/23 11:30 Interval history: Patient is a 68 very pleasant male with a history of previous obesity status post gastric bypass sleeve surgery in January 2023, no complications reported. Patient reports that he has lost 185 lb since his surgery. He presents to [place] ER with complaint of abdominal pain on the left side for about a month now along with green watery diarrhea about 5 times per day. He has had poor appetite. He now experiences the urge to defecate many times per day but nearly nothing comes out. he denies blood per rectum. Workup demonstrated a hemodynamically stable male. Hemoglobin 12.2 on admission down to 11.3 On repeat, his baseline is in the 12 6. MCV 100.3. INR 1.1, sodium 132, serum creatinine 0.6. a CT abdomen pelvis with contrast conducted demonstrated lopez colitis and small right pleural effusion. Treatment given in the ER included 1 L normal saline bolus, morphine 4 mg IV x1, Protonix 40 mg IV x1, famotidine 20 mg IV x1, Zofran 4 mg IV x1, Zosyn 3.375 x1. Upon evaluation after this the patient rested comfortably in complained of only mild discomfort at the left upper and left lower quadrant and suprapubic region. 11/01/23 Patient report that abdominal pain is improving. Pain is a 4 when pushing on stomach and with some activity, pain is frequent, and burning. Patient denies nausea, vomiting, or blood in stool this morning. Developed nausea this afternoon. WBC: 7.8, H&H 10.8/31.5, Sodium 132, BUN 8, Creatinine 0.50. Stool for c.diff negative. Stool Lactoferrin pending. GI to see patient today. Review of Systems Review of Systems: All systems reviewed & are unremarkable except as noted in HPI and below ( Subjective) Exam Const: General: comfortable and no acute distress Eyes: Pupils: Equal, round and reactive pupils present Neck: Neck: supple Resp: Effort & Inspection: normal respiratory effort Auscultation: clear to auscultation bilaterally Cardio: Rate: regular rate Rhythm: regular rhythm GI: Inspection: non-distended Auscultation: normal bowel sounds Other: mild tenderness to deep palpation of left lower and left upper quadrants Neuro: Cranial nerves: Yes Equal, round and reactive pupils present Extrem: General: no edema Objective Data Vital Signs Vital Signs: Vital Signs - 24 hr 10/31/23 18:04 10/31/23 20:17 10/31/23 20:42 Temperature 98.6 F 97.9 F Pulse Rate 109 H 88 83 Respiratory Rate 18 20 16 Blood Pressure 109/62 113/68 113/68 Pulse Oximetry 100 97 Oxygen Delivery Room Air 10/31/23 20:20 10/31/23 20:31 10/31/23 20:46 Temperature Pulse Rate 87 92 86 Respiratory Rate 18 20 18 Blood Pressure 107/67 113/68 111/66 Pulse Oximetry 99 98 98 Oxygen Delivery 10/31/23 21:01 10/31/23 21:16 10/31/23 21:31 Temperature Pulse Rate 84 87 89 Respiratory Rate 14 20 20 Blood Pressure 108/63 105/62 101/58 L Pulse Oximetry 99 98 97 Oxygen Delivery 10/31/23 21:46 10/31/23 22:42 10/31/23 22:24 Temperature 98.6 F Pulse Rate 86 84 Respiratory Rate 20 17 Blood Pressure 107/61 103/52 L Pulse Oximetry 98 99 Oxygen Delivery Room Air 11/01/23 04:18 10/31
[2023-11-01] MEDS: ONDANSETRON INJ 4 MG/2 ML VIAL IV PUSH (11:55)
--- NOTE | 2023-11-01 14:45 | WPDGICN ---
Assessment and Plan Assessment and plan (1) Colitis: Code(s): K52.9 - Noninfective gastroenteritis and colitis, unspecified Status: Acute Assessment and Plan: pending stool sample, c diff negative better with treatment advance diet as tolerated he says that had colonoscopy last year that was normal therefore IBD will be less likely (2) Lower abdominal pain: Code(s): R10.30 - Lower abdominal pain, unspecified Status: Acute Assessment and Plan: better (3) Dehydration: Code(s): E86.0 - Dehydration Status: Acute Assessment and Plan: fluids (4) Hyponatremia: Code(s): E87.1 - Hypo-osmolality and hyponatremia Status: Acute GI Consult Note Consult date/time: 11/01/23 14:45 Reason for consult: colitis HPI: Jayesh Anderson is a 68 year old male with history of gastric sleeve as bariatric surgery in January 2023 and no other medical issues. He has been having diarrhea 5 times a day and abdominal discomfort for almost 3 weeks for [address] had CT scan that showed colitis but did not get treatment, pain has worsened and came to ER. Repeat CT scan showed pancolitis, he also has urge to defecate many times per day but nearly nothing comes out. he denies blood per rectum. Blood work showed sodium 132, serum creatinine 0.6. Started on abx and better, c diff negative. He says that had colonoscopy last January at another place and no issues. At baseline he has normal BM. Review of Systems Constitutional: Constitutional: Denies headache(s) Eyes: Eyes: Denies blurry vision ENT: Reports Normal hearing present, Denies headache(s) and Denies neck pain Cardiovascular: Cardiovascular: Denies chest pain and Denies dyspnea Respiratory: Respiratory: Denies dyspnea Gastrointestinal: Gastrointestinal: Reports no additional gastrointestinal complaints Genitourinary: Genitourinary: Denies dysuria Musculoskeletal: Musculoskeletal: Denies neck pain Integumentary/Breasts: Skin/Breast: Denies dry skin Neurologic: Reports Normal hearing present and Denies headache(s) Psychiatric: Psychiatric: Denies anxiety Endocrine: Endocrine: Denies change in body appearance Allergic/Immunologic: Allergic/Immunologic: Denies urticaria PMFSH Past Medical History Medical History (Updated 11/01/23 @ 14:50 by Rajesh Mayers MD) Dehydration Dyslipidemia Hypertension Hyponatremia Lower abdominal pain Surgical History Surgical History (Updated 10/31/23 @ 20:49 by Chula Tello PA-C) H/O gastric sleeve Family History Family History (Updated 10/31/23 @ 22:35 by Symone Fischer RN) Mother Acute myocardial infarction Colon cancer Diabetes mellitus Social History Social History Smoking status: Former smoker Alcohol intake: current Drinks per week: 14 Substance use: never Do You Feel Safe in your Home?: Yes Lack of Transportation: No Lack of Food: Never True Current Housing: I Have Housing Concerned About Future Housing: No Difficulty Paying Gas/Electric Bills: No Difficulty Paying for Meds: No Currently Unemployed: No Education: High School Diploma/GED Difficulty w/ Childcare or Family Care: No Spiritual care concerns: No Meds Home Medications and Allergies Home Medications Medication Instructions Recorded Confirmed Type qflmqhmk-[id number]-[id number] 45 mg-folic 1 cap PO DAILY 10/31/23 10/31/23 History acid 800 mcg-vit K 120 mcg capsule (Bariatric Multivitamins) Allergies Allergy/AdvReac Type Severity Reaction Status Date / Time No Known Allergies Allergy Verified 10/31/23 17:50 Vital Signs Vital Signs - 24 hr 10/31/23 18:04 10/31/23 20:17 10/31/23 20:42 Temperature 98.6 F 97.9 F Pulse Rate 109 H 88 83 Respiratory Rate 18 20 16 Blood Pressure 109/62 113/68 113/68 Pulse Oximetry 100 97 Oxygen Delivery Room Air
[2023-11-01 16:00] VITALS: BP 119/60; PULSE 94; RESP 14; TEMP 36.8; O2SAT 97
[2023-11-01] MEDS: MELATONIN 5 MG TABLET PO (21:03)
[2023-11-02] VITALS: BP 94/50; PULSE 88; RESP 18; TEMP 37.2; O2SAT 93
[2023-11-02] MEDS: SODIUM CHLORIDE 0.9% IV 1,000 ML 100 ML IV CONT ×3 (00:56→21:27)
[2023-11-02] MEDS: PIPERACILLN/TAZ 3.375GM/NS50ML 3.375 GM/50 ML BAG IVPB ×4 (03:57→21:25)
[2023-11-02 06:00] VITALS: BP 80/53; PULSE 60; RESP 20; TEMP 36.7; O2SAT 98
[2023-11-02 06:44] LABS: Alanine Aminotransferase 13 U/L (6-50); Albumin Level 2.4 g/dL (3.5-5.1); Alkaline Phosphatase 94 U/L (38-126); Anion Gap 5 mmol/L (4-12); Aspartate Amino Transferase 21 U/L (17-59); Bilirubin,Total 0.6 mg/dL (0.2-1.3); Blood Urea Nitrogen 4 mg/dL (9-20); Calcium 8.1 mg/dL (8.4-10.2); Carbon Dioxide 28 mmol/L (22-30); Chloride 101 mmol/L (98-107); Estimated CRCL calculation 126 ml/min; Estimated Glomerular Filt Rate > 60; Glucose 84 mg/dL (65-110); Potassium 3.4 mmol/L (3.4-5.0); Sodium 134 mmol/L (137-145)
[2023-11-02 06:53] VITALS: BP 93/54
[2023-11-02] MEDS: MULTIVITAMINS /C LUTEIN (CENTRUM SILVER) TABLET *BKC 1 TAB PO (08:01)
[2023-11-02] MEDS: PANTOPRAZOLE SODIUM IV 40 MG VIAL IV PUSH (08:01)
--- NOTE | 2023-11-02 09:38 | PM.IMPN ---
Progress Note: A&P Assessment and Plan (1) Colitis: Code(s): K52.9 - Noninfective gastroenteritis and colitis, unspecified Status: Acute Assessment and Plan: -CT abdomen pelvis with contrast conducted demonstrated lopez colitis and small right pleural effusion. -Denies abdominal pain at present. -WBC 8.4, H&H 11.4/35.4, Sodium 134, Stool for c.diff negative. Stool Lactoferrin pending. -GI to see patient yesterday and patient does not need a colonoscopy at this time. -NS@100 ml/hr. -Advance diet to Regular diet. -Protonix 40 mg IVPB. -Zosyn 3.375 gm IVPB q6. (2) Nausea: Code(s): R11.0 - Nausea Status: Acute Assessment and Plan: -improved, denies at present -Ondansetron 4 mg q4 PRN IVP. (3) Mild protein malnutrition: Code(s): E44.1 - Mild protein-calorie malnutrition Status: Acute Assessment and Plan: -Gastric sleeve in January of 2023, 185 lb weight loss. -Protein 5.0. -Dietary consult for supplementation, added premier protein shakes. to bring in. Subjective Date/time seen: 11/02/23 09:38 Interval history: Patient is a 68 very pleasant male with a history of previous obesity status post gastric bypass sleeve surgery in January 2023, no complications reported. Patient reports that he has lost 185 lb since his surgery. He presents to [place] ER with complaint of abdominal pain on the left side for about a month now along with green watery diarrhea about 5 times per day. He has had poor appetite. He now experiences the urge to defecate many times per day but nearly nothing comes out. he denies blood per rectum. Workup demonstrated a hemodynamically stable male. Hemoglobin 12.2 on admission down to 11.3 On repeat, his baseline is in the 12 6. MCV 100.3. INR 1.1, sodium 132, serum creatinine 0.6. a CT abdomen pelvis with contrast conducted demonstrated lopez colitis and small right pleural effusion. Treatment given in the ER included 1 L normal saline bolus, morphine 4 mg IV x1, Protonix 40 mg IV x1, famotidine 20 mg IV x1, Zofran 4 mg IV x1, Zosyn 3.375 x1. Upon evaluation after this the patient rested comfortably in complained of only mild discomfort at the left upper and left lower quadrant and suprapubic region. 11/01/23 Patient report that abdominal pain is improving. Pain is a 4 when pushing on stomach and with some activity, pain is frequent, and burning. Patient denies nausea, vomiting, or blood in stool this morning. Developed nausea this afternoon. WBC: 7.8, H&H 10.8/31.5, Sodium 132, BUN 8, Creatinine 0.50. Stool for c.diff negative. Stool Lactoferrin pending. GI to see patient today. 11/02/23 Patient denies abdominal pain, nausea, or vomiting. Reports tolerating breakfast well and feels that he is ready to advance his diet. Patient reports that he is starting to feel the urge when needing to have a bowel movement and frequency has decreased. WBC 8.4 , H&H 11.4/35.4 , sodium 134, BUN 4, Creatinine 0.50, Protein 5.0, albumin 2.4. Blood cultures and some stool studied are pending. Review of Systems Review of Systems: All systems reviewed & are unremarkable except as noted in HPI and below ( Subjective) Cardiovascular: Cardiovascular: Reports leg edema (chronic and improving since he has been losing weight. ) Exam Const: General: comfortable and no acute distress Neck: Neck: supple Resp: Effort & Inspection: normal respiratory effort Auscultation: clear to auscultation bilaterally Cardio: Rate: regular rate Rhythm: regular rhythm GI: Inspection: non-distended Auscultation: normal bowel sounds Other: No tenderness to palpation. Skin: General skin exam: normal color Neuro: General: gait normal Speech: normal speech Extrem: General: pedal edema on the right 2+ and on the left 1+ Psych: Affect: normal affect Objective Data Vital Signs Vital Signs: Vital Signs - 24 hr 11/01/23 16:00 11/01/23 20:00 09
[2023-11-02 09:39] LABS: Hematocrit 35.4 % (42.0-52.0); Hemoglobin 11.4 g/dL (14.0-18.0); Mean Corpuscular HGB Conc 32.2 g/dl (32-36); Mean Corpuscular Hemoglobin 33.8 pg (26-34); Mean Platelet Volume 9.4 fl (7.4-10.4); Platelet Count Result 345 k/mm3 (150-375); Red Blood Count 3.37 M/mm3 (4.6-6.20); Red Cell Distribution Width 13.3 % (11.5-14.5); White Blood Count 8.4 K/mm3 (4.5-10.0)
[2023-11-02 10:11] LABS: Band Neutrophils Percent 19 % (0-6); Lymphocytes Absolute Manual 1.34 K/mm3 (1.1-4.5); Metamyelocytes Percent 1 %; Monocytes Percent Manual 12 % (3-9); Neutrophils Absolute Manual 5.96 K/mm3 (1.3-6.7); Neutrophils Percent Manual 52 % (46-73); Platelet Estimate Adequate (Adequate); Schistocytes None Seen; Total Cells Counted 100
[2023-11-02 10:12] LABS: Hypochromasia 1+
[2023-11-02 14:00] VITALS: BP 98/58; PULSE 62; RESP 19; TEMP 36.7; O2SAT 97
--- NOTE | 2023-11-02 17:32 | WPDGIPROGNO ---
Progress Note: A&P Assessment and Plan (1) Chronic diarrhea: Code(s): K52.9 - Noninfective gastroenteritis and colitis, unspecified Status: Acute Assessment and Plan: symptomatically better but given chronicity of symptoms will do colonoscopy tomorrow to assess get also serology for celiac (2) Lower abdominal pain: Code(s): R10.30 - Lower abdominal pain, unspecified Status: Acute (3) Colitis: Code(s): K52.9 - Noninfective gastroenteritis and colitis, unspecified Status: Acute (4) Nausea: Code(s): R11.0 - Nausea Status: Acute (5) Dehydration: Code(s): E86.0 - Dehydration Status: Acute Subjective Date/time seen: 11/02/23 17:32 Interval history: much better and no more diarrhea but I had the change to talk to his PCP, he had recent elevated calprotectin in stool and symptoms for almost 5 weeks stool negative for infection Review of Systems Review of Systems: All systems reviewed & are unremarkable except as noted in HPI and below Exam Const: General: comfortable and no acute distress HENMT: Face/Nose/Sinus: Normal nares present Eyes: General: appearance normal, both eyes and all related structures Neck: Neck: supple Resp: Auscultation: clear to auscultation bilaterally Cardio: Rate: regular rate Rhythm: regular rhythm GI: Inspection: non-distended GI Palp: Yes Soft to palpation, No Tenderness to palpation present (GI) and No Guarding due to palpation present (GI) Auscultation: normal bowel sounds Skin: General skin exam: normal color Neuro: Speech: normal speech Motor exam (neuro): 5/5 motor strength present throughout Extrem: General: normal to inspection Psych: Mental Status: mental status grossly normal Objective Data Vital Signs Vital Signs: Vital Signs - 24 hr 11/01/23 20:00 11/02/23 00:00 11/02/23 06:00 Temperature 99.0 F 98.1 F Pulse Rate 88 60 Respiratory Rate 18 20 Blood Pressure 94/50 L 80/53 L Pulse Oximetry 93 98 Oxygen Delivery Room Air 11/02/23 06:53 11/02/23 14:00 Temperature 98.0 F Pulse Rate 62 Respiratory Rate 19 Blood Pressure 93/54 L 98/58 L Pulse Oximetry 97 Oxygen Delivery Intake/Output Intake/Output: Intake & Output 10/30/23 10/31/23 11/01/23 11/02/23 23:59 23:59 23:59 23:59 Intake Total 1050 3450 4220 Balance 1050 3450 4220 Meds/Results Medications: Active Medications Generic Name Dose Route Start Last Admin Trade Name Freq PRN Reason Stop Dose Admin Bisacodyl 20 mg 11/02/23 18:00 Bisacodyl 5 Mg Tablet Ec PO 11/02/23 18:01 ONCE ONE Piperacillin/Tazobactam/Dextrose 3.375 gm in 50 mls @ 100 mls/hr 11/01/23 04:00 11/02/23 15:32 Zosyn 3.375 Gm/Ns 50 Ml IVPB 100 mls/hr Q6H CURTIS Administration Sodium Chloride 1,000 mls @ 100 mls/hr 11/01/23 01:05 11/02/23 11:10 Normal Saline Iv IV CONT 100 mls/hr .Q10H CURTIS Administration Melatonin 5 mg 11/01/23 20:37 11/01/23 21:03 Melatonin 5 Mg Tablet PO 5 mg HS PRN Administration Insomnia Morphine Sulfate 2 mg 11/01/23 01:11 Morphine Sulfate (*Crx) 2 Mg/Ml Inj IV PUSH Q2H PRN Pain Rated 7-10 Multivitamins/Minerals 1 tab 11/01/23 09:00 11/02/23 08:01 Multivitamins /C Lutein (Centrum Silver) Tablet *Bkc PO 1 tab DAILY CURTIS Administration Ondansetron HCl 4 mg 11/01/23 11:46 11/01/23 11:55 Ondansetron Inj 4 Mg/2 Ml Vial IV PUSH 4 mg Q4H PRN Administration Nausea And Vomiting Pantoprazole Sodium 40 mg 11/01/23 09:00 11/02/23 08:01 Pantoprazole Sodium Iv 40 Mg Vial IV PUSH 40 mg QAM CURTIS Administration Polyethylene Glycol 238 gm 11/02/23 18:00 Polyethylene Glycol 3350 238 Gm Bottle PO 11/02/23 18:01 ONCE ONE Labs Labs: Laboratory Results - last 24 hr 11/02/23 05:46 WBC 8.4 RBC 3.37 L Hgb 11.4 L Hct 35.4 L MCV 105.0 H MCH 33.8 MCHC 32.2 RDW 13.3 Plt Count 345 MPV 9.4 Imm
[2023-11-02] MEDS: polyethylene glycoL 3350 238 GM BOTTLE PO (18:36)
[2023-11-02] MEDS: BISACODYL 5 MG TABLET EC 20 MG PO (18:43)
[2023-11-02 20:41] VITALS: BP 104/54; PULSE 62; RESP 20; TEMP 36.6; O2SAT 98
[2023-11-02] MEDS: MELATONIN 5 MG TABLET PO (21:26)
[2023-11-03] VITALS (8 sets, daily range): BP systolic 90–107; BP diastolic 48–65; PULSE 63–82; RESP 16–20; TEMP 36.4–36.8; O2SAT 95–100
[2023-11-03] MEDS: MAGNESIUM CITRATE 300 ML BTL PO (01:50)
[2023-11-03] MEDS: ONDANSETRON INJ 4 MG/2 ML VIAL IV PUSH (02:53)
[2023-11-03] MEDS: PIPERACILLN/TAZ 3.375GM/NS50ML 3.375 GM/50 ML BAG IVPB ×4 (03:00→21:36)
[2023-11-03 06:00] LABS: Alanine Aminotransferase 16 U/L (6-50); Albumin Level 2.2 g/dL (3.5-5.1); Alkaline Phosphatase 99 U/L (38-126); Anion Gap 3 mmol/L (4-12); Aspartate Amino Transferase 38 U/L (17-59); Bilirubin,Total 0.4 mg/dL (0.2-1.3); Blood Urea Nitrogen 3 mg/dL (9-20); Calcium 7.6 mg/dL (8.4-10.2); Carbon Dioxide 26 mmol/L (22-30); Chloride 104 mmol/L (98-107); Estimated CRCL calculation 126 ml/min; Estimated Glomerular Filt Rate > 60; Glucose 92 mg/dL (65-110); Sodium 133 mmol/L (137-145)
[2023-11-03] MEDS: PANTOPRAZOLE SODIUM IV 40 MG VIAL IV PUSH (07:41)
[2023-11-03] MEDS: POTASSIUM CHLORIDE INJ 40 MEQ in SODIUM CHLORIDE 0.9% IV 500 ML 130 MEQ IVPB (07:43)
[2023-11-03 09:07] LABS: Basophils Percent Auto 0.4 % (0.2-1.2); Eosinophils Absolute Auto 0.5 K/mm3 (0-0.3); Eosinophils Percent Auto 6.7 % (0-4.4); Hematocrit 32.4 % (42.0-52.0); Hemoglobin 10.6 g/dL (14.0-18.0); Immature Granulocyte Absolute 0.06 K/mm3 (0.00-0.031); Immature Granulocyte Percent A 0.8 % (0-0.5); Lymphocytes Absolute Auto 1.14 K/mm3 (0.9-3.2); Lymphocytes Percent Auto 15.2 % (18.3-44.2); Mean Corpuscular HGB Conc 32.7 g/dl (32-36); Mean Corpuscular Hemoglobin 33.7 pg (26-34); Mean Corpuscular Volume 102.9 fl (80-100); Mean Platelet Volume 8.3 fl (7.4-10.4); Monocytes Absolute Auto 1.2 K/mm3 (0.1-0.6); Monocytes Percent Auto 15.8 % (2.6-8.5); Neutrophils Absolute Auto 4.6 K/mm3 (1.3-6.7); Neutrophils Percent Auto 61.1 % (45.5-73.1); Platelet Count Result 315 k/mm3 (150-375); Red Blood Count 3.15 M/mm3 (4.6-6.20); Red Cell Distribution Width 13.2 % (11.5-14.5); White Blood Count 7.5 K/mm3 (4.5-10.0)
[2023-11-03] MEDS: SODIUM CHLORIDE 0.9% IV 1,000 ML 100 ML IV CONT ×2 (09:55→23:28)
--- NOTE | 2023-11-03 11:14 | WPDANESEPPF ---
Anes - Initial Pre Proc Eval Procedure: Operation Date: 11/03/23 15:00 Proposed Procedures p Colonoscopy - Rajesh Mayers MD Date/Time: 11/03/23 11:14 Surgeon: Jena Murillo MD Pre Op Diagnosis: Colitis Patient Data Age: 68 Gender: M Height: 1.83 m Weight: 88 kg Last Vital Signs Temp 97.9 F 11/03/23 11:09 Pulse 65 11/03/23 11:09 Resp 16 11/03/23 11:09 BP 94/55 L 11/03/23 11:09 Pulse Ox 100 11/03/23 11:09 O2 Del Method Room Air 11/03/23 11:09 Allergies Allergy/AdvReac Type Severity Reaction Status Date / Time No Known Allergies Allergy Verified 10/31/23 17:50 Home Medications Medication Instructions Recorded Confirmed Type [id number]-[id number] 45 mg-folic 1 cap PO DAILY 10/31/23 10/31/23 History acid 800 mcg-vit K 120 mcg capsule (Bariatric Multivitamins) Laboratory Tests 11/03/23 11/03/23 05:25 08:41 WBC 7.5 K/mm3 (4.5-10.0) RBC 3.15 L M/mm3 (4.6-6.20) Hgb 10.6 L g/dL (14.0-18.0) Hct 32.4 L % (42.0-52.0) MCV 102.9 H fl (80-100) MCH 33.7 pg (26-34) MCHC 32.7 g/dl (32-36) RDW 13.2 % (11.5-14.5) Plt Count 315 k/mm3 (150-375) MPV 8.3 fl (7.4-10.4) Immature Gran % (Auto) 0.8 H % (0-0.5) Neut % (Auto) 61.1 % (45.5-73.1) Lymph % (Auto) 15.2 L % (18.3-44.2) Rowan % (Auto) 15.8 H % (2.6-8.5) Eos % (Auto) 6.7 H % (0-4.4) Baso % (Auto) 0.4 % (0.2-1.2) Lymph # (Auto) 1.14 K/mm3 (0.9-3.2) Rowan # (Auto) 1.2 H K/mm3 (0.1-0.6) Eos # (Auto) 0.5 H K/mm3 (0-0.3) Baso # (Auto) 0.0 K/mm3 (0.0-0.1) Abs Immat Gran (auto) 0.06 H K/mm3 (0.00-0.031) Absolute Neuts (auto) 4.6 K/mm3 (1.3-6.7) Absolute Nucleated RBC 0.000 K/mm3 (0.0-0.012) Nucleated RBC % 0.0 % (0.0-0.2) Sodium 133 L mmol/L (137-145) Potassium 3.0 L mmol/L (3.4-5.0) Chloride 104 mmol/L (98-107) Carbon Dioxide 26 mmol/L (22-30) Anion Gap 3 L mmol/L (4-12) BUN 3 L mg/dL (9-20) Creatinine 0.50 L mg/dL (0.7-1.3) Estim Creat Clear Calc 126 ml/min Estimated GFR > 60 (59 - ) Glucose 92 mg/dL (65-110) Calcium 7.6 L mg/dL (8.4-10.2) Total Bilirubin 0.4 mg/dL (0.2-1.3) AST 38 U/L (17-59) ALT 16 U/L (6-50) Alkaline Phosphatase 99 U/L (38-126) Total Protein 5.0 L g/dL (6.3-8.2) Albumin 2.2 L g/dL (3.5-5.1) Tiss Transglutamin IgG Pending Tiss Transglutamin IgA Pending Patient hx anesthesia problems: none Family hx anesthesia problems: none Results Review: All pre-operative results and documents have been reviewed as part of the pre-operative evaluation. [facility] Past Medical History Medical History Chronic diarrhea Dehydration Dyslipidemia Hypertension Hyponatremia Lower abdominal pain Surgical History Surgical History H/O gastric sleeve Family History Family History Mother Acute myocardial infarction Colon cancer Diabetes mellitus Social History Social History Smoking status: Former smoker Alcohol intake: current Drinks per week: 14 Substance use: never Do You Feel Safe in your Home?: Yes Lack of Transportation: No Lack of Food: Never True Current Housing: I Have Housing Concerned About Future Housing: No Difficulty Paying Gas/Electric Bills: No Difficulty Paying for Meds: No Currently Unemployed: No Education: High School Diploma/GED Difficulty w/ Childcare or Family Care: No Spiritual care concerns: No Anes - Eval Final PreProcedu
[2023-11-03 11:28] LABS: Lactoferrin, Stool COMMENT:
[2023-11-03] MEDS: LACTATED RINGERS 1,000 ML 150 ML IV CONT (11:30)
--- NOTE | 2023-11-03 11:48 | PM.IMPN ---
Progress Note: A&P Assessment and Plan (1) Colitis: Code(s): K52.9 - Noninfective gastroenteritis and colitis, unspecified Status: Acute Assessment and Plan: -CT abdomen pelvis with contrast conducted demonstrated lopez colitis and small right pleural effusion. -Denies abdominal pain at present. -WBC 8.4, H&H 11.4/35.4, Sodium 134, Stool for c.diff negative. Stool Lactoferrin pending. -GI to see patient yesterday and patient does not need a colonoscopy at this time. -NS@100 ml/hr. -Advance diet to Regular diet. -Protonix 40 mg IVPB. -Zosyn 3.375 gm IVPB q6. Patient will switch to oral antibiotics tomorrow (Cefuroxime and Metronidazole). -Colonoscopy showed: the terminal ileum was examined and was normal. No ileitis. Moderate to severe colitis was seen throughout the colon. The colitis had decreased vascularity, edematous, erythematous, friable and ulcerative changes. This is highly consistent with ulcerative colitis. Multiple biopsies taken. Will start mesalamine also prednisone with slow taper (now 40 mg daily to lower 5 mg each week). (2) Nausea: Code(s): R11.0 - Nausea Status: Acute Assessment and Plan: -improved, denies at present -Ondansetron 4 mg q4 PRN IVP. (3) Mild protein malnutrition: Code(s): E44.1 - Mild protein-calorie malnutrition Status: Acute Assessment and Plan: -Gastric sleeve in January of 2023, 185 lb weight loss. -Protein 5.0. -Dietary consult for supplementation, added premier protein shakes. to bring in. (4) Hypokalemia: Code(s): E87.6 - Hypokalemia Status: Acute Assessment and Plan: -Potassium 3.0 this morning. -Patient ordered Potassium Chloride 40 meq IVPB x 1. Subjective Date/time seen: 11/03/23 11:48 Interval history: Patient is a 68 very pleasant male with a history of previous obesity status post gastric bypass sleeve surgery in January 2023, no complications reported. Patient reports that he has lost 185 lb since his surgery. He presents to [place] with complaint of abdominal pain on the left side for about a month now along with green watery diarrhea about 5 times per day. He has had poor appetite. He now experiences the urge to defecate many times per day but nearly nothing comes out. he denies blood per rectum. Workup demonstrated a hemodynamically stable male. Hemoglobin 12.2 on admission down to 11.3 On repeat, his baseline is in the 12 6. MCV 100.3. INR 1.1, sodium 132, serum creatinine 0.6. a CT abdomen pelvis with contrast conducted demonstrated lopez colitis and small right pleural effusion. Treatment given in the ER included 1 L normal saline bolus, morphine 4 mg IV x1, Protonix 40 mg IV x1, famotidine 20 mg IV x1, Zofran 4 mg IV x1, Zosyn 3.375 x1. Upon evaluation after this the patient rested comfortably in complained of only mild discomfort at the left upper and left lower quadrant and suprapubic region. 11/01/23 Patient report that abdominal pain is improving. Pain is a 4 when pushing on stomach and with some activity, pain is frequent, and burning. Patient denies nausea, vomiting, or blood in stool this morning. Developed nausea this afternoon. WBC: 7.8, H&H 10.8/31.5, Sodium 132, BUN 8, Creatinine 0.50. Stool for c.diff negative. Stool Lactoferrin pending. GI to see patient today. 11/02/23 Patient denies abdominal pain, nausea, or vomiting. Reports tolerating breakfast well and feels that he is ready to advance his diet. Patient reports that he is starting to feel the urge when needing to have a bowel movement and frequency has decreased. WBC 8.4 , H&H 11.4/35.4 , sodium 134, BUN 4, Creatinine 0.50, Protein 5.0, albumin 2.4. Blood cultures and some stool studied are pending. 11/03/23 Patient denies abdominal pain. Patient reports that he did have dry heaves last night while doing the prep for colonoscopy today and received a dose of zofran with improvement. Denies nausea or vomi
[2023-11-03] MEDS: MESALAMINE 400 MG DELAYED RELEASE CAPSULE 800 MG PO ×2 (13:42→16:32)
[2023-11-03] MEDS: MULTIVITAMINS /C LUTEIN (CENTRUM SILVER) TABLET *BKC 1 TAB PO (13:42)
[2023-11-03 16:57] LABS: Basophils Absolute Auto 0.1 K/mm3 (0.0-0.1); Basophils Percent Auto 0.5 % (0.2-1.2); Eosinophils Absolute Auto 0.7 K/mm3 (0-0.3); Eosinophils Percent Auto 6.8 % (0-4.4); Hematocrit 32.7 % (42.0-52.0); Hemoglobin 10.7 g/dL (14.0-18.0); Immature Granulocyte Absolute 0.06 K/mm3 (0.00-0.031); Immature Granulocyte Percent A 0.6 % (0-0.5); Lymphocytes Percent Auto 13.2 % (18.3-44.2); Mean Corpuscular HGB Conc 32.7 g/dl (32-36); Mean Corpuscular Hemoglobin 34.1 pg (26-34); Mean Corpuscular Volume 104.1 fl (80-100); Mean Platelet Volume 8.3 fl (7.4-10.4); Monocytes Absolute Auto 1.6 K/mm3 (0.1-0.6); Monocytes Percent Auto 15.8 % (2.6-8.5); Neutrophils Absolute Auto 6.2 K/mm3 (1.3-6.7); Neutrophils Percent Auto 63.1 % (45.5-73.1); Platelet Count Result 321 k/mm3 (150-375); Red Blood Count 3.14 M/mm3 (4.6-6.20); Red Cell Distribution Width 13.2 % (11.5-14.5); White Blood Count 9.9 K/mm3 (4.5-10.0)
[2023-11-03 18:22] LABS: Hepatitis B Surface Antigen Negative (Negative)
[2023-11-03 18:43] LABS: Hepatitis B Surface Anti Res Positive
[2023-11-03] MEDS: MELATONIN 5 MG TABLET PO (21:36)
[2023-11-04 05:52] LABS: Alanine Aminotransferase 15 U/L (6-50); Albumin Level 2.2 g/dL (3.5-5.1); Alkaline Phosphatase 89 U/L (38-126); Anion Gap 7 mmol/L (4-12); Aspartate Amino Transferase 23 U/L (17-59); Bilirubin,Total 0.4 mg/dL (0.2-1.3); Blood Urea Nitrogen 5 mg/dL (9-20); Calcium 7.5 mg/dL (8.4-10.2); Carbon Dioxide 22 mmol/L (22-30); Chloride 104 mmol/L (98-107); Estimated CRCL calculation 126 ml/min; Estimated Glomerular Filt Rate > 60; Glucose 79 mg/dL (65-110); Potassium 3.3 mmol/L (3.4-5.0); Sodium 133 mmol/L (137-145)
[2023-11-04 06:00] VITALS: BP 101/51; PULSE 70; RESP 18; TEMP 36.6; O2SAT 99
[2023-11-04] MEDS: metroNIDAZOLE 500 MG TABLET PO (06:14)
[2023-11-04] MEDS: cefuroxime axetiL 250 MG TABLET 500 MG PO (06:14)
--- NOTE | 2023-11-04 07:39 | PM.IMPN ---
Progress Note: A&P Assessment and Plan (1) Pancolitis: Code(s): K51.00 - Ulcerative (chronic) pancolitis without complications Status: Acute Assessment and Plan: CT showed Pancolitis 11/02 Colonoscopy showed: the terminal ileum was examined and was normal. No ileitis. Moderate to severe colitis was seen throughout the colon. The colitis had decreased vascularity, edematous, erythematous, friable and ulcerative changes. This is highly consistent with ulcerative colitis. Multiple biopsies taken. Labs C-diff negative Plan GI following, appreciate recommendations Colonoscopy concerning for ulcerative colitis, started mesalamine and slow prednisone taper (40 daily, decrease by 5 weekly) Follow biopsy results (2) Hypokalemia: Code(s): E87.6 - Hypokalemia Status: Acute Assessment and Plan: In the setting of diarrhea and poor PO intake. Improving with repletion and improved intake -Potassium 3.0<3.3 -40meq potassium (3) Nausea: Code(s): R11.0 - Nausea Status: Acute Assessment and Plan: Improved, denies at present -Ondansetron 4 mg q4 PRN IVP. (4) Mild protein malnutrition: Code(s): E44.1 - Mild protein-calorie malnutrition Status: Acute Assessment and Plan: Gastric sleeve in January of 2023, 185 lb weight loss. Protein 5.0. -Dietary consult for supplementation, added premier protein shakes. to bring in. Subjective Date/time seen: 11/04/23 07:39 Review of Systems Review of Systems: All systems reviewed & are unremarkable except as noted in HPI and below ( Subjective) Cardiovascular: Cardiovascular: Reports leg edema (chronic and improving since he has been losing weight. ) Objective Data Vital Signs Vital Signs: Vital Signs - 24 hr 11/03/23 08:00 11/03/23 11:09 11/03/23 12:10 Temperature 97.9 F Pulse Rate 65 70 Respiratory Rate 16 20 Blood Pressure 94/55 L 98/65 L Pulse Oximetry 96 100 98 Oxygen Delivery Room Air Room Air Room Air 11/03/23 12:20 11/03/23 12:30 11/03/23 14:00 Temperature 98.2 F Pulse Rate 63 63 82 Respiratory Rate 20 18 18 Blood Pressure 99/62 L 107/65 94/54 L Pulse Oximetry 97 97 99 Oxygen Delivery Room Air Room Air 11/03/23 20:47 11/03/23 21:30 11/04/23 06:00 Temperature 98 F 97.9 F Pulse Rate 72 70 Respiratory Rate 16 18 Blood Pressure 90/48 L 101/51 L Pulse Oximetry 95 99 Oxygen Delivery Room Air Intake/Output Intake/Output: Intake & Output 11/01/23 11/02/23 11/03/23 11/04/23 23:59 23:59 23:59 23:59 Intake Total 3450 5320 3840 300 Balance 3450 5320 3840 300 Meds/Results Medications: Active Medications Generic Name Dose Route Start Last Admin Trade Name Freq PRN Reason Stop Dose Admin Cefuroxime Axetil 500 mg 11/04/23 07:00 11/04/23 06:14 Cefuroxime Axetil 250 Mg Tablet PO 11/05/23 21:01 500 mg Q12HR CURTIS Administration Sodium Chloride 1,000 mls @ 100 mls/hr 11/01/23 01:05 11/03/23 23:28 Normal Saline Iv IV CONT 100 mls/hr .Q10H CURTIS Administration Melatonin 5 mg 11/01/23 20:37 11/03/23 21:36 Melatonin 5 Mg Tablet PO 5 mg HS PRN Administration Insomnia Mesalamine 800 mg 11/03/23 13:00 11/03/23 16:32 Mesalamine 400 Mg Delayed Release Capsule PO 800 mg TID CURTIS Administration Metronidazole 500 mg 11/04/23 06:00 11/04/23 06:14 Metronidazole 500 Mg Tablet PO 11/05/23 22:01 500 mg Q8HR CURTIS Administration Morphine Sulfate 2 mg 11/01/23 01:11 Morphine Sulfate (*Crx) 2 Mg/Ml Inj IV PUSH Q2H PRN Pain Rated 7-10 Multivitamins/Minerals 1 tab 11/01/23 09:00 11/03/23 13:42 Multivitamins /C Lutein (Centrum Silver) Tablet *Bkc PO 1 tab DAILY CURTIS Administration Ondansetron HCl 4 mg 11/01/23 11:46 11/03/23 02:53 Ondansetron Inj 4 Mg/2 Ml Vial IV PUSH 4 mg Q4H PRN Administration Nausea And Vomiting Pantoprazole Sodium 40 mg 11/01/23 09:00 11/03/23 07:4
[2023-11-04] MEDS: POTASSIUM CHLORIDE 20 MEQ ER TABLET 40 MEQ PO (08:27)
[2023-11-04] MEDS: predniSONE 20 MG TABLET 40 MG PO (08:27)
[2023-11-04] MEDS: PANTOPRAZOLE SODIUM IV 40 MG VIAL IV PUSH (08:28)
[2023-11-04] MEDS: MULTIVITAMINS /C LUTEIN (CENTRUM SILVER) TABLET *BKC 1 TAB PO (08:28)
[2023-11-04] MEDS: MESALAMINE 400 MG DELAYED RELEASE CAPSULE 800 MG PO (08:28)
[2023-11-04 14:00] VITALS: BP 106/64; PULSE 73; RESP 12; O2SAT 99
--- NOTE | 2023-11-04 15:26 | WPDGIPROGNO ---
Progress Note: A&P Assessment and Plan (1) Pancolitis: Code(s): K51.00 - Ulcerative (chronic) pancolitis without complications Status: Acute Assessment and Plan: findings and biopsy c/w ulcerative colitis he is going home with mesalamine and slow prednisone taper follow-up office in 3-4 weeks to reassess, probably will need biologics TB and HBV ordered (2) Hypokalemia: Code(s): E87.6 - Hypokalemia Status: Acute Assessment and Plan: treated (3) Chronic diarrhea: Code(s): K52.9 - Noninfective gastroenteritis and colitis, unspecified Status: Acute Assessment and Plan: from ibd c diff negative (4) Lower abdominal pain: Code(s): R10.30 - Lower abdominal pain, unspecified Status: Acute Subjective Date/time seen: 11/04/23 14:26 Interval history: doing better and going home today colonoscopy with pancolitis Review of Systems Review of Systems: All systems reviewed & are unremarkable except as noted in HPI and below Exam Const: General: comfortable and no acute distress HENMT: Face/Nose/Sinus: Normal nares present Eyes: General: appearance normal, both eyes and all related structures Neck: Neck: supple Resp: Auscultation: clear to auscultation bilaterally Cardio: Rate: regular rate Rhythm: regular rhythm GI: Inspection: non-distended GI Palp: Yes Soft to palpation, No Tenderness to palpation present (GI) and No Guarding due to palpation present (GI) Auscultation: normal bowel sounds Skin: General skin exam: normal color Neuro: Speech: normal speech Motor exam (neuro): 5/5 motor strength present throughout Extrem: General: normal to inspection Psych: Mental Status: mental status grossly normal Objective Data Vital Signs Vital Signs: Vital Signs - 24 hr 11/03/23 20:47 11/03/23 21:30 11/04/23 06:00 Temperature 98 F 97.9 F Pulse Rate 72 70 Respiratory Rate 16 18 Blood Pressure 90/48 L 101/51 L Pulse Oximetry 95 99 Oxygen Delivery Room Air 11/04/23 08:00 11/04/23 14:00 Temperature Pulse Rate 73 Respiratory Rate 12 Blood Pressure 106/64 Pulse Oximetry 99 Oxygen Delivery Room Air Intake/Output Intake/Output: Intake & Output 11/01/23 11/02/23 11/03/2324 23:59 23:59 23:59 23:59 Intake Total 3450 5320 3840 780 Balance 3450 5320 3840 780 Labs Labs: Laboratory Results - last 24 hr 11/03/23 11/04/23 16:29 05:05 WBC 9.9 RBC 3.14 L Hgb 10.7 L Hct 32.7 L MCV 104.1 H MCH 34.1 H MCHC 32.7 RDW 13.2 Plt Count 321 MPV 8.3 Immature Gran % (Auto) 0.6 H Neut % (Auto) 63.1 Lymph % (Auto) 13.2 L Carson % (Auto) 15.8 H Eos % (Auto) 6.8 H Baso % (Auto) 0.5 Lymph # (Auto) 1.30 Carson # (Auto) 1.6 H Eos # (Auto) 0.7 H Baso # (Auto) 0.1 Abs Immat Gran (auto) 0.06 H Absolute Neuts (auto) 6.2 Absolute Nucleated RBC 0.000 Nucleated RBC % 0.0 Sodium 133 L Potassium 3.3 L Chloride 104 Carbon Dioxide 22 Anion Gap 7 BUN 5 L Creatinine 0.50 L Estim Creat Clear Calc 126 Estimated GFR > 60 Glucose 79 Calcium 7.5 L Total Bilirubin 0.4 AST 23 ALT 15 Alkaline Phosphatase 89 Total Protein 5.0 L Albumin 2.2 L Hep Bs Antigen Negative Hep Bs Antibody Positive
[2023-11-05 13:52] LABS: NIL 0.02 IU/mL; Quantiferon TB Plus, 1T NEGATIVE (NEGATIVE); TB2-NIL <0.00 IU/mL
[2023-11-06 10:33] LABS: Tissue Transglutaminase IgA Ab <1.0 U/mL; Tissue Transglutaminase IgG Ab <1.0 U/mL
[2023-11-10 14:39] LABS: Hepatitis B Core Ab Total NON-REACTIVE (NON-REACTIVE)
--- NOTE | 2023-11-20 17:22 | PM.DS ---
DS: Admitting Diagnosis Discharge Date 11/04/23 Admitting Diagnosis Abdominal pain DS: Summary Hospital Course Reason for hospitalization: Copied from [facility] 11/01/23: Mr. Anderson is A very pleasant male with a history of previous obesity status post gastric bypass surgery in January 2023, no complications reported. He presents to [place] ER with complaint of abdominal pain on the left side for about a month now along with green watery diarrhea about 5 times per day. He has had poor appetite. He now experiences the urge to defecate many times per day but nearly nothing comes out. he denies blood per rectum. Workup demonstrated a hemodynamically stable male. Hemoglobin 12.2 on admission down to 11.3 On repeat, his baseline is in the 12 6. MCV 100.3. INR 1.1, sodium 132, serum creatinine 0.6. a CT abdomen pelvis with contrast conducted demonstrated lopez colitis and small right pleural effusion. Treatment given in the ER included 1 L normal saline bolus, morphine 4 mg IV x1, Protonix 40 mg IV x1, famotidine 20 mg IV x1, Zofran 4 mg IV x1, Zosyn 3.375 x1. Upon evaluation after this the patient rested comfortably in complained of only mild discomfort at the left upper and left lower quadrant and suprapubic region. Hospital Course: The patient presented to the ER 10/31 with abdominal pain and watery diarrhea. Found to have pancolitis on CT. GI was consulted 68 very pleasant male with a history of previous obesity status post gastric bypass sleeve surgery in January 2023, no complications reported. Patient reports that he has lost 185 lb since his surgery. He presents to [place] [facility] with complaint of abdominal pain on the left side for about a month now along with green watery diarrhea about 5 times per day. He has had poor appetite. He now experiences the urge to defecate many times per day but nearly nothing comes out. he denies blood per rectum. Workup demonstrated a hemodynamically stable male. Hemoglobin 12.2 on admission down to 11.3 On repeat, his baseline is in the 12 6. MCV 100.3. INR 1.1, sodium 132, serum creatinine 0.6. a CT abdomen pelvis with contrast conducted demonstrated lopez colitis and small right pleural effusion. Treatment given in the ER included 1 L normal saline bolus, morphine 4 mg IV x1, Protonix 40 mg IV x1, famotidine 20 mg IV x1, Zofran 4 mg IV x1, Zosyn 3.375 x1. Upon evaluation after this the patient rested comfortably in complained of only mild discomfort at the left upper and left lower quadrant and suprapubic region. 11/01/23 Patient report that abdominal pain is improving. Pain is a 4 when pushing on stomach and with some activity, pain is frequent, and burning. Patient denies nausea, vomiting, or blood in stool this morning. Developed nausea this afternoon. WBC: 7.8, H&H 10.8/31.5, Sodium 132, BUN 8, Creatinine 0.50. Stool for c.diff negative. Stool Lactoferrin pending. GI to see patient today. 11/02/23 Patient denies abdominal pain, nausea, or vomiting. Reports tolerating breakfast well and feels that he is ready to advance his diet. Patient reports that he is starting to feel the urge when needing to have a bowel movement and frequency has decreased. WBC 8.4 , H&H 11.4/35.4 , sodium 134, BUN 4, Creatinine 0.50, Protein 5.0, albumin 2.4. Blood cultures and some stool studied are pending. 11/03/23 Patient denies abdominal pain. Patient reports that he did have dry heaves last night while doing the prep for colonoscopy today and received a dose of zofran with improvement. Denies nausea or vomiting at the present time. Patient reports being cleared out well. Potassium 3.0 this morning. Colonoscopy showed: the terminal ileum was examined and was normal. No ileitis. Moderate to severe colitis was seen throughout the colon. The colitis had decreased vascularity, edematous, erythematous, friable and ulcerative changes. This is highly consistent with ulcerative colitis. Multiple biopsies taken. Will start mes
== END 2023-11-04 14:55 | disposition home or self-care (01) | DRG 386 ==
LOC: ANHED 21:02 → ANH2MED 21:50
PROVIDERS: Internal Medicine Gastroenterology; Nurse Practitioner Family; Registered Nurse; Admitting Provider General Practice; Emergency Provider Physician Assistant; PCP Internal Medicine; Visit Provider Nurse Practitioner Acute Care
PROC: 0DJD8ZZ Inspection of Lower Intestinal Tract, Via Natural or Artificial Opening Endoscopic (ICD-10-PCS; CPT 45378; principal; 2023-11-03 15:00)
DX: K51.00 Ulcerative (chronic) pancolitis without complications (principal); E44.1 Mild protein-calorie malnutrition; E87.1 Hypo-osmolality and hyponatremia; E86.0 Dehydration; E78.5 Hyperlipidemia, unspecified; I10 Essential (primary) hypertension; R11.0 Nausea; Z98.84 Bariatric surgery status; Z87.891 Personal history of nicotine dependence
CPT/HCPCS: 36415; 80048; 80053; 83605; 83630; 83690; 83735; 84484; 85025; 85027; 85610; 85730; 86364; 86480; 86704; 86706; 87045; 87340; 87427; 87449; 87493; 88305; 93005; 96361; 96365; 96375; 96376; 99285; A9270; G0378; J2270; J2405; J2470; J2543; J2704; J3480; J7030; J7040; J7120; J7512

== ENCOUNTER 2023-11-23 08:28 | Outpatient (CLI) | payer MEDICARE, SELFPAY ==
[2023-11-23 09:00] VITALS: BP 100/52; PULSE 86; RESP 18; TEMP 36.1; O2SAT 97; BMI 25.8
[2023-11-23] MEDS: IRON SUCROSE COMPLEX 400 MG, IRON SUCROSE COMPLEX 100 MG in SODIUM CHLORIDE 0.9% IV 250 ML 62.5 MG IVPB (09:14)
== END 2023-11-23 13:20 | disposition home or self-care (01) ==
PROVIDERS: PCP Internal Medicine; Visit Provider Internal Medicine
DX: D50.9 Iron deficiency anemia, unspecified (principal)
CPT/HCPCS: 96365; 96366; J1756; J7050

== ENCOUNTER 2023-12-07 08:09 | Outpatient (CLI) | payer MEDICARE, SELFPAY ==
[2023-12-07 08:21] VITALS: BP 110/60; PULSE 72; RESP 18; TEMP 35.8; O2SAT 96
[2023-12-07 08:22] VITALS: BMI 25.8
[2023-12-07] MEDS: IRON SUCROSE COMPLEX 400 MG, IRON SUCROSE COMPLEX 100 MG in SODIUM CHLORIDE 0.9% IV 250 ML 62.5 MG IVPB (08:46)
== END 2023-12-07 08:10 | disposition home or self-care (01) ==
PROVIDERS: PCP Internal Medicine; Visit Provider Internal Medicine
DX: D50.9 Iron deficiency anemia, unspecified (principal)
CPT/HCPCS: 96365; 96366; J1756; J7050

== ENCOUNTER 2023-12-13 08:25 | Outpatient (CLI) | payer MEDICARE, SELFPAY ==
[2023-12-13 08:49] LABS: Hematocrit 31.3 % (37.0-46.0); Hemoglobin 10.2 g/dL (12.4-15.3); Mean Corpuscular HGB Conc 32.6 g/dL (32-36); Mean Corpuscular Hemoglobin 34.3 pg (27.0-31.0); Mean Corpuscular Volume 105.4 fL (78.0-102.0); Mean Platelet Volume 8.4 fl (8.7-11.0); Platelet Count Result 242 K/mm3 (150-420); Red Blood Count 2.97 M/mm3 (4.70-6.10); Red Cell Distribution Width 14.1 % (11.6-14.4)
[2023-12-13 09:34] LABS: Toxigenic C. Diff POSITIVE (NEGATIVE)
[2023-12-13 09:43] LABS: Alanine Aminotransferase 63 U/L (16-63); Albumin Level 2.9 g/dL (3.4-5.0); Alkaline Phosphatase 86 U/L (46-116); Anion Gap 11 mmol/L (4-12); Aspartate Amino Transferase 57 U/L (15-37); Bilirubin,Total 0.5 mg/dL (0.00-1.00); Blood Urea Nitrogen 21 mg/dL (7-18); Calcium 8.5 mg/dL (8.5-10.1); Carbon Dioxide 29 mmol/L (21-32); Chloride 103 mmol/L (98-108); Estimated Glomerular Filt Rate > 60; Glucose 97 mg/dL (70-99); Osmolality Calculated 299 mOsm/kg (285-295); Potassium 4.4 mmol/L (3.5-5.1); Sodium 143 mmol/L (136-145)
[2023-12-13 09:50] LABS: Erythrocyte Sedimentation Rate 30 mm/hr (0-20)
== END 2023-12-13 08:26 | disposition home or self-care (01) ==
LOC: CHSLAB 08:26
PROVIDERS: PCP Internal Medicine; Visit Provider Nurse Practitioner
DX: R11.0 Nausea (principal); K51.90 Ulcerative colitis, unspecified, without complications; K51.00 Ulcerative (chronic) pancolitis without complications
CPT/HCPCS: 36415; 80053; 83993; 85027; 85652; 86140; 87045; 87269; 87427; 87449; 87493

== ENCOUNTER 2023-12-23 15:34 | Outpatient (CLI) | payer MEDICARE, SELFPAY ==
[2023-12-23 16:59] LABS: Toxigenic C. Diff NEGATIVE (NEGATIVE)
== END 2023-12-23 15:35 | disposition home or self-care (01) ==
LOC: CHSLAB 15:35
PROVIDERS: PCP Internal Medicine; Visit Provider Nurse Practitioner
DX: R19.7 Diarrhea, unspecified (principal); K51.90 Ulcerative colitis, unspecified, without complications
CPT/HCPCS: 87493

== ENCOUNTER 2023-12-29 09:14 | Outpatient (CLI) | payer MEDICARE, SELFPAY ==
[2023-12-29 09:43] LABS: Hematocrit 36.2 % (37.0-46.0); Mean Corpuscular HGB Conc 33.1 g/dL (32-36); Mean Corpuscular Hemoglobin 34.4 pg (27.0-31.0); Mean Corpuscular Volume 103.7 fL (78.0-102.0); Mean Platelet Volume 8.9 fl (8.7-11.0); Platelet Count Result 184 K/mm3 (150-420); Red Blood Count 3.49 M/mm3 (4.70-6.10); Red Cell Distribution Width 13.3 % (11.6-14.4); White Blood Count 10.5 K/mm3 (4.8-10.8)
[2023-12-29 10:43] LABS: Erythrocyte Sedimentation Rate 38 mm/hr (0-20)
[2023-12-29 11:28] LABS: CRP 1.4 mg/dL (0.0-0.9); Iron 115 ug/dL (65-175)
[2023-12-29 11:37] LABS: Ferritin > 1000 ng/mL (26-388)
== END 2023-12-29 09:15 | disposition home or self-care (01) ==
LOC: CHSLAB 09:15
PROVIDERS: PCP Internal Medicine; Visit Provider Internal Medicine
DX: D50.9 Iron deficiency anemia, unspecified (principal); K51.019 Ulcerative (chronic) pancolitis with unspecified complications
CPT/HCPCS: 36415; 82728; 83540; 85027; 85652; 86140

== ENCOUNTER 2024-01-30 09:07 | Outpatient (CLI) | payer MEDICARE, SELFPAY ==
[2024-01-30 09:26] LABS: Basophils Absolute Auto 0.02 K/mm3 (0.00-0.10); Basophils Percent Auto 0.2 % (0.0-1.0); Eosinophils Absolute Auto 0.47 K/mm3 (0.02-0.50); Eosinophils Percent Auto 5.6 % (1.0-6.0); Hematocrit 38.2 % (37.0-46.0); Immature Granulocyte Absolute 0.03 K/mm3 (0.00-0.00); Immature Granulocyte Percent A 0.4 % (0.0-0.0); Lymphocytes Absolute Auto 1.25 K/mm3 (1.10-4.50); Mean Corpuscular Hemoglobin 33.8 pg (27.0-31.0); Mean Corpuscular Volume 99.2 fL (78.0-102.0); Mean Platelet Volume 8.7 fl (8.7-11.0); Monocytes Absolute Auto 0.85 K/mm3 (0.10-0.90); Monocytes Percent Auto 10.2 % (2.0-11.0); Neutrophils Absolute Auto 5.74 K/mm3 (1.70-7.20); Neutrophils Percent Auto 68.6 % (50.0-70.0); Platelet Count Result 136 K/mm3 (150-420); Red Blood Count 3.85 M/mm3 (4.70-6.10); Red Cell Distribution Width 12.3 % (11.6-14.4); White Blood Count 8.4 K/mm3 (4.8-10.8)
[2024-01-30 10:31] LABS: Alanine Aminotransferase 46 U/L (16-63); Albumin Level 3.5 g/dL (3.4-5.0); Alkaline Phosphatase 86 U/L (46-116); Anion Gap 7 mmol/L (4-12); Aspartate Amino Transferase 44 U/L (15-37); Bilirubin,Total 0.3 mg/dL (0.00-1.00); Blood Urea Nitrogen 14 mg/dL (7-18); Calcium 9.4 mg/dL (8.5-10.1); Carbon Dioxide 33 mmol/L (21-32); Chloride 104 mmol/L (98-108); Cholesterol 159 mg/dL (0-200); Estimated Glomerular Filt Rate > 60; Ferritin > 1000 ng/mL (26-388); Folic Acid > 20.0 ng/mL (8.6->20); Glucose 81 mg/dL (70-99); HDL Direct 80 mg/dL (40-60); Iron 71 ug/dL (65-175); LDL Cholesterol Calculated 67 mg/dL (<130); Magnesium 1.7 mg/dL (1.8-2.4); Osmolality Calculated 297 mOsm/kg (285-295); Percent Iron Saturation 26 % (12-57); Phosphorus 4.4 mg/dL (2.6-4.7); Potassium 4.1 mmol/L (3.5-5.1); Sodium 144 mmol/L (136-145); Thyroid Stimulating Hormone 2.23 uIU/mL (0.36-3.74); Total Protein 6.5 g/dL (6.4-8.2); Triglycerides 60 mg/dL (0-150); Vitamin B12 907 pg/mL (193-986)
[2024-01-31 15:23] LABS: Parathyroid Intact 22 pg/mL (16-77)
[2024-02-02 07:58] LABS: Transferrin 222 mg/dL (188-341)
[2024-02-03 09:53] LABS: Vitamin B1 60 nmol/L (8-30)
[2024-02-05 04:43] LABS: Vitamin D 25 Hydroxy 59 ng/mL (30-100)
--- OUTSIDE RECORDS SUMMARY | 2024-02-06 01:10 | XMS_ITS | Encounter Summary ---
Author Organization [facility] Address [address] [place] [address] Care Team Providers Care Manager English Name Role Phone Betty Rodriguez MD Primary Care Provider [phone] Reason for Visit * Reason Comments Bariatric Surgery Follow-up Encounter Details Date Type Department Care Team (Late st Contact Info) Description 01/27/2024 9:00 AM EDGE BURNISHER Office Visit [facility] Weight Management Services [address] [place] [phone] Anusha Campa, [employer] VEHICLE CREWMAN-PNEUMATIC SYSTEM CONVEYOR OPERATOR [address] [place], [place] [phone] Overweight with body mass index (BMI) of 26 to 26.9 in adult (Primary Dx); S/P laparoscopic sleeve gastrectomy; Thyroid 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 abnormal; Vitamin D deficiency; Elevated liver enzymes; Elevated hemoglobin (HCC); Hypercholesteremia Social History Tobacco Use Types Packs/Day Years Used Date Smoking Tobacco: Never Smokeless Tobacco: Never Alcohol Use Standard Drinks/Week Comments Yes 0 (1 standard drink = 0.6 oz pur e alcohol) occ AUDIT-C Answer Date Recorded Q1: How often do you have a drink containing alc ohol? Monthly or less 01/17/2023 Q2: How many drinks containi ng alcohol do you have on a typical day when you are drinking? 1 or 2 01/17/2023 Q3: How often do you have si x or more drinks on one occasion? Never 01/17/2023 PHQ-2 Answer Date Recorded Patient Health Questionnaire-2 Score 0 01/27/2024 Sex and Gender Information Value Date Recorded Sex Assigned at Not on file Gender Identity Not on file Sexual Orientation Not on file documented as of this encounter Last Filed Vital Signs Vital Sign Reading Time Taken Comments Blood Pressure 130/64 01/27/2024 8:00 AM EDGE BURNISHER Pulse 64 01/27/2024 8:00 AM EDGE BURNISHER Temperature 36.3 ??C (97.3 ??F) 01/27/2024 8:00 AM CS T Respiratory Rate 18 01/27/2024 8:00 AM EDGE BURNISHER Oxygen Saturation 98% 01/27/2024 8:00 AM EDGE BURNISHER Inhaled Oxygen Concentration - - Weight 88.7 kg (195 lb 8 oz) 01/27/2024 8:00 AM EDGE BURNISHER Height 182.9 cm (6') 01/27/2024 8:00 AM EDGE BURNISHER Body Mass Index 26.51 01/27/2024 8:00 AM EDGE BURNISHER documented in this encounter Functional Status Functional Status Response Date of Assess ment Is person deaf or have serious hearing difficult y? No 01/17/2023 Is person blind or have serious difficulty seein g? No 01/17/2023 Does person have serious dif ficulty walking/climbing stairs? No 01/17/2023 Does person have difficulty dressing/bathing? No 01/17/2023 Does person have difficulty doing errands alone? No 01/17/2023 Cognitive Status Response Date of Assessm ent Does person have difficulty concentrating/remembering/making decisions? No 01/17/2023 documented as of this encounter Patient Instructions * Patient Instructions* Kiana Cotton - 01/27/2024 9:31 AM EDGE BURNISHER PROCEDURE INSTRUCTIONS PROCEDURE: EGD DATE: 04/25/2024 GENERAL GUIDELINES All surgery patients need to arrange for a responsible adult, 18 years or older, to drive them homeafter discharge. If you have young children, please make arrangements for their care while you are at the hospital. Same day surgery department will call you with your arrival time to the hospital one business day before your scheduled surgery. MEDICATIONS TO STOP Mobic (Meloxicam) - 10 days before Relafen (Nabumetome) - 10 days before Feldene (Piroxicam) - 10 days before Toradol (Ketorolac) - 7 days Effient (Prasugrel) - 7 days before Aggrenox - 7 days before Aspirin - 5 days before Plavix (Clopidogrel) - 5 days before Coumadin (Warfarin) - 7 days before Brillinta (Ticagrelor) - 5 days before Ticlid (Ticlopidine) - 5 days before Pletal (Cilostazol) - 3 days before Naprosyn (Naproxen) - 3 days before Dolobid (Diflunisal) - 3 days before Clinoril (Sulindac) - 3 days before Xarelto (Rivaroxaban) - 3 days before Eliquis (Apixaban) - 3 days before Pradaxa (Dabigatran) - 3 days before Savaysa (Endoxaban) - 3 days before (Phentermine) - 3 days before Vyvanse (Lisdexafetamine) -3 days before Celebrex - 2 days before Contrave - 2 days before CBD Oil - 2 days before Lovenox - Please discuss with provider for specific instructions on stopping this medication Voltaren (Diclofenac) - 1 day before Motrin (Ibuprofen) - 1 day before Indocin (Indomethacin) - 1 day before Orudis (Ketoprofen) - 1 day before Rybelsus (semaglutide) - 1 day before INJECTABLE MEDICATIONS TO STOP Trulicity (Dulaglutide) - do not take weekly injection within 7 days of surgery date Bydureon (Exenatide XR) - do not take weekly injection within 7 days of surgery date Ozempic (Semaglutide) - do not take weekly injection within 7 days of surgery date Wegovy (Semaglutide) - do not take weekly injection within 7 days of surgery date Mounjaro (Tirzepatide) - do not take weekly injection within 7 days of surgery date Zepbound (Tirzepatide) - do not take weekly injection within 7 days of surgery date Saxenda (Liraglutide) - do not take weekly injection within 7 days of surgery date Victoza (Liraglutide) - do not take weekly injection within 7 days of surgery date Byetta (Exenatide IR) - do not take evening dose or dose day of procedure Adlyxin (Lixisenatide) - do not take evening dose or dose day of procedure DAY BEFORE SURGERY Do not drink alcoholic beverages or smoke for 24 hours prior to your surgery. To help prevent infection, shower the night before and the morning of surgery. If your surgeon has provided you with specific bathing instructions, please follow those guidelines. Perform thorough oral hygiene by brushing teeth before coming to the hospital. Remove all jewelry, make up, finger/toe gibraltarian and body piercings prior to your arrival at the hospital. Same day surgery department will call you with your arrival time to the hospital one business day before your scheduled surgery. DAY OF SURGERY Nothing to eat or drink after midnight the day of your surgery, unless otherwise instructed by yourphysician. Please bring insurance cards and photo ID with you to the hospital. Please leave all valuables at home. (This includes money, jewelry, watches, credit cards, etc.) BURNISHER documented in this encounter Progress Notes * Anusha Campa, [employer] VEHICLE CREWMAN-PNEUMATIC SYSTEM CONVEYOR OPERATOR - 01/27/2024 8:52 AM CST [facility] Management Services at [address] [address] . . Date of encounter: 01/27/2024 Pt Name: Jayesh Anderson : 1955 AGE: [age] year old SEX: male CSN: [id number] Visit type: Bariatric Post Operative visit Patients Primary care provider is : Betty Rodriguez MD Subjective: Jayesh Anderson presents to the clinic 1 year following sleeve gastrectomy. he was seen in clinic last on 07/20/2023. Patient is taking 60 grams of proteins supplements daily. Patient is encouraged to attend support group meeting. Patient is taking 64+ oz of fluid per day. Doing house remodeling for exercise daily. Patient is taking Bariatric multivitamins. Patient is not having Reflux, Vomiting, Dysphagia, and Abdominal Pain, The patient is not having any pain.. Bowel movement are Normal. Has the patient been readmitted to the hospital since the last follow up ? Yes, ulcerative colitis episode in December 2023 at [facility] Has the patient had any post bariatric surgical operations or interventions performed since the last follow up? No Weight History: Initial Weight:09/02/2022 Weight: (!) 167.3 kg (368 lb 12.8 oz) BMI (Calculated): 50.01 10/13/2022 Weight: (!) 162.3 kg (357 lb 12.8 oz) BMI (Calculated): 48.52 Total Wt Loss in lb: 11 lb 11/08/2022 Weight: (!) 155.3 kg (342 lb 4.8 oz) BMI (Calculated): 46.41 Weight Loss since last visitin lbs : 15.5 lb Total Wt Loss in lb: 26.5 lb 12/01/2022 Weight: (!) 149.8 kg (330 lb 3.2 oz) BMI (Calculated): 44.77 Weight Loss since last visit in lbs : 12.1 lb Total Wt Loss in lb: 38.6 lb 12/24/2022 Weight: (!) 146.7 kg (323 lb 6.4 oz) BMI (Calculated): 43.85 Weight Loss since last visit in lbs : 6.8 lb Total Wt Loss in lb: 45.4 lb 01/13/2023 Weight: (!) 144.7 kg (319 lb) BMI (Calculated): 43.25 Weight Loss since last visit in lbs : 4.4 lb Total Wt Loss in lb: 49.8 lb 01/27/2023 Weight: (!) 136.9 kg (301 lb 14.4 oz) BMI (Calculated): 40.94 Weight Loss since last visit in lbs : 17.1 lb Total Wt Loss in lb: 66.9 lb BSTOP Questions - 01/27/2023 1 wk Post-Op How many doses of opioid pain medication did you take after discharge? 2 Are you still taking the opioid pain medication prescribed to you at discharge? No Did you receive any refills on the opioid pain medication prescribed to you after discharge? No Did you dispose of unused pain medication at an appropriate facility or drop- off? Still has 02/18/2023 Weight: 129 kg (284 lb 6.4 oz) BMI (Calculated): 38.56 Weight Loss since last visit in lbs: 17.5 lb Total Wt Loss in lb: 84.4 lb BSTOP Questions - 1 mo Post-Op Date: 02/18/2023 How many doses of opioid pain medication did you take after discharge? 2 Are you still taking the opioid pain medication prescribed to you at discharge? no Did you receive any refills on the opioid pain medication prescribed to you after discharge? no Did you dispose of unused pain medication at an appropriate facility or drop- off? Patient still hasthe pills and aware how to dispose. 05/11/2023 Weight: 108.9 kg (240 lb 1.6 oz) BMI (Calculated): 32.56 Weight Loss since last visit in lbs : 44.3 lb Total Wt Loss in lb: 128.7 lb 07/20/2023 Weight: 97.2 kg (214 lb 4.8 oz) BMI (Calculated): 29.06 Weight Loss since last visit in lbs : 25.8 lb Total Wt Loss in lb: 154.5 lb 01/27/2024 Weight: 88.7 kg (195 lb 8 oz) BMI (Calculated): 26.51 Weight Loss since last visit in lbs : 18.8 lb Total Wt Loss in lb: 173.3 lb Obesity History Years of being overweight? 38yrs Age of first weight loss attempt? 18 Highest weight as an adult? 320 Goal Weight? 200 BMI: Body mass index is 26.51 kg/m??. Past Medical History: Diagnosis Date GERD (gastroesophageal reflux disease) HTN (hypertension) Sleep apnea CPAP Past Surgical History: Procedure Laterality Date COLONOSCOPY WITH POLYPECTOMY N/A 11/12/2022 N/A; COLONOSCOPY with polypectomy ENDOSCOPY, UPPER N/A 11/12/2022 N/A; ESOPHAGOGASTRODUODENOSCOPY with biopsy ENDOSCOPY, UPPER N/A 12/13/2022 N/A; ESOPHAGOGASTRODUODENOSCOPY WITH BIOPSY Gastrectomy N/A 01/17/2023 N/A; LAPAROSCOPIC SLEEVE GASTRECTOMY Lumbar Diskectomy Meniscectomy Bilateral Social history: Social History Socioeconomic History Marital status: Spouse name: Not on file Number of children: Not on file Years of education: Not on file Highest education level: Not on file Occupational History Not on file Tobacco Use Smoking status: Never Smokeless tobacco: Never Vaping Use Vaping status: Never Used Substance and Sexual Activity Alcohol use: Yes Comment: occ Drug use: Never Sexual activity: Not on file Other Topics Concern Not on file Social History Narrative Not on file Social Determinants of Health Financial Resource Strain: Not on file Food Insecurity: Not on file Transportation Needs: Not on file Stress: Not on file Housing Stability: Not on file Family History: Family History Problem Relation Name Age of Onset Cancer Mother Diabetes; unknown type Mother Medications: Outpatient Medications Marked as Taking for the 01/27/24 encounter (Office Visit) with Campa, Anusha R, [employer] VEHICLE CREWMAN-PNEUMATIC SYSTEM CONVEYOR OPERATOR Medication Sig Calcium Carbonate (CALCIUM 600 PO) Take 600 mg by mouth 2 times daily 1 tab by mouth twice a day mesalamine DR (Delzicol) 400 MG capsule 1 (one) capsule 3 times daily multivitamin daily tablet Take 1 (one) tablet by mouth 2 times daily (Not in a hospital admission) Allergy: No Known Allergies ROS: A comprehensive review of systems was negative except as described in HPI. Objective: BP 130/64 Pulse 64 Temp 97.3 ??F (36.3 ??C) Resp 18 Ht 1.829 m (6') Wt 88.7 kg (195 lb 8 oz) SpO2 98% Weight: 88.7 kg (195 lb 8 oz) Height: 182.9 cm (6') Body mass index is 26.51 kg/m??. Constitutional: Alert, awake and oriented without any apparent discomfort. Eyes: Anicteric. No subconjunctival hemorrhage. Neck Exam: Supple. Trachea midline. No thyromegaly. No cervical or supraclavicular lymphadenopathy. Respiratory: Lungs were clear to auscultation bilaterally. No rales, rhonchi. Cardiovascular: Regular rate and rhythm. No rub, murmur or gallop Abdomen: Abdomen was obese, soft, non tender, non distended. No palpable visceromegaly. No palpableventral hernias. Wound healing well. Skin: [place] and moist. No ulcers, rashes, or lesions. Extremities: Well perfused. No gross joint deformity noted Neurological: Cranial nerves 2-12 were grossly intact. Psychiatric: The patient's mood and affect appeared to be appropriate Labs Recent Labs Component Name 01/18/23 0548 01/17/23 1130 WBC 11.8* 7.3 RBC 3.59* 3.91* HGB 12.7* 13.4* HCT 36.9* 39.7* PLTCOUNT 224 197 Recent Labs Component Name 01/18/23 0548 01/17/23 1130 SODIUM 142 143 POTASSIUM 4.3 4.1 CO2 24 21* BUN 15.6 12.3 CREATININE 0.67* 0.62* Recent Labs Component Name 01/18/23 0548 01/17/23 1130 GLUCOSE 124 100 Recent Labs Component Name 01/18/23 0548 01/17/23 1130 AST 32 42* ALT 38 48 Recent Labs Component Name 01/18/2348 HDL 51 TRIG 86 TSH 1.9327 Recent Labs Component Name 01/18/2348 HGBA1C 5.1 Recent Labs Component Name 01/18/2348 TSH 1.9327 Recent Labs Component Name 01/18/2348 TSH 1.9327 No results for input(s): IRON in the last 64386 hours. No results for input(s): PRIMXIAG17 in the last 56048 hours. No results for input(s): VITAMINA in the last 10847 hours. No results for input(s): IRON in the last 56098 hours. No results for input(s): VITK1 in the last 97741 hours. No results for input(s): [id number] in the last 24948 hours. No results for input(s): ALPHATOCOPH in the last 81112 hours. No results for input(s): GAMMATOCOPH in the last 00070 hours. No results for input(s): MAGMGDL in the last 93257 hours. Recent Labs Component Name 01/18/2348 PHOS 3.05 Some lab results will be in paper format so may be scanned in the EMR. Imaging studies No results found. Some Imaging studies results will be in paper format so may be scanned in the EMR. Assessment and Plan Overweight: Change in weight as noted in the weight history above. Total weight loss since starting the program:173.3 pounds Current BMI Body mass index is 26.51 kg/m??. with weight of Weight: 88.7 kg (195 lb 8 oz) . S/P Bariatric Surgery : s/p: Sleeve Gastrectomy . Date of surgery 01/17/23. @ [facility], by Dr. Enriquez. Doing well postoperative. May use fiber supplementation like Bene fiber 1-2 teaspoon twice daily in the protein supplementation to prevent constipation. Patient was recommended to take about 60-80 g of protein per day, and get involved in an exercise plan. The patient is also recommended to attend support group meetings.I also explained to him that he should take 2 adult multivitamin tablets, and 1500 mg of calcium citrate. Patient was made aware of the nutrition deficiency should he fail to take supplementation. History of Gastric Ulcer Preop EGD 11/12/22. Showed 2 antral ulcers. He underwent repeat EGD 12/13/22 which was normal. Will proceed with Esophagogastroduodenoscopy for evaluation of post sleeve gastrectomy reflux. The procedure was described in detail to the patient. Risks discussed including bleeding, perforation, infection, and need for subsequent procedure. He would like to proceed. NPO following Midnight prior to procedure. Written instructions regarding procedure was given to the patient prior to leaving. Plan for 1 week follow up after procedure History of Hypertension Prior to procedure patient was on lisinopril/ hydrochlorothiazide. Blood pressure in the office today 130/64. He no longer takes medication for HTN. Sleep apnea Patient had a sleep study which showed sleep apnea. Weight loss could help with resolving this condition as well. Patient was encouraged to utilize CPAP/ BiPAP as pre recommended settings. He continues to use CPAP. History of Hypercholesterolemia Patient recently taken off of Lipitor 40 mg for this. Cholesterol 202 with labs completed 07/21/2023. Will recheck lipid panel with 12 month post op labs. Ulcerative Colitis Patient reports 4 day hospitalization in December 2023 for ulcerative colitis. He was at [facility] in [facility]. He is following with Gastroenterology, Dr. Hnedrix. He is planning a colonoscopy for follow-up. He is currently on oral therapy. Patient reports he may have to transition to IV therapy for treatment of his ulcerative colitis. Colon cancer screening He denies family history of colon cancer. He underwent colonoscopy by Dr. Enirquez 11/12/22. Findings: several benign-appearing colon polyps removed, sigmoid colon diverticulosis Pathology: Ascending polyp, polypectomy/adenoma. Sigmoid polyps: Polypoid colonic mucosa with a mild lamina propria chronic inflammation. Recommended repeat colonoscopy in 3 years 10/2025. History of Abnormal Thyroid On initial lab testing TSH was abnormal 4.05. TSH normal 07/21/2023. Continue follow up with PCP. Will recheck with 12 month post op labs. History of Vitamin D deficiency He had low vitamin D on initial testing. Repeat vit D 07/21/2023 was normal at 69. Will recheck with 12 month post op labs. Umbilical hernia I discussed with the patient his incarcerated umbilical hernia. Patient reports some discomfort when lifting, pushing, or pulling items. Will have patient follow-up with Dr. Enriquez after 1 year postop EGD to discuss timeline for surgical management of incarcerated umbilical hernia. I counseled the patient on continuing Behavior and Lifestyle Modifications : Eat 1-2 small meals daily and protein supplementation. Recommended to take about 80 g of protein per day. Eliminate high caloric beverages. Do not graze between meals. Portion control, measuring portions, showed portion control plates. Choosing low sugar, high protein items. Reducing stress and emotional eating. Incorporating fruits and vegetables in moderation. Taking 20 minutes to eat a meal. Patient was instructed to keep a food journal. Patient was counseled on the need for routine exercise plan, at least 10 minutes per day. Labs ordered: Routine Vitamin and Lab check. Plan : as above recommendation. Follow up with: Surgeons / PA/ PHOTOGRAPHIC EQUIPMENT INSPECTOR : 1 week after EGD and at 18 months post op Dietitian: as scheduled. He verbalized understanding and is agreeable to this plan after shared decision making with patient. Anusha Campa, [employer] VEHICLE CREWMAN-PNEUMATIC SYSTEM CONVEYOR OPERATOR CC: Betty Rodriguez MD BURNISHER documented in this encounter Plan of Treatment Upcoming Encounters Date Type Department Care Team (Latest Contact Info) Description 04/25/2024 9:44 AM CDT Hospital Encounter [facility] [address] [place] [address] Eliana Enriquez MD [address] [place] [phone] Surgery General 04/25/2024 9:44 AM CDT - 04/25/2024 10:10 AM CDT Surgery [facility] [address] [place] [address] Eliana Enriquez MD [address] [place] [phone] ESOPHAGOGASTRODUODENOSCOPY WITH BIOPSY 05/03/2024 9:30 AM CDT Office Visit [facility] Weight Management Services [address] [facility] [place] [phone] Eliana Enriquez MD [address] [facility] [place] [address] 07/19/2024 9:00 AM CDT Office Visit [facility] Weight Management Services [address] [facility] [place] [address] Anusha Campa, [employer] VEHICLE CREWMAN-PNEUMATIC SYSTEM CONVEYOR OPERATOR [address] [place] [address] 01/18/2025 9:00 AM EDGE BURNISHER Clinical Support [facility] Weight Management Services [address] [facility] [place] [address] 01/18/2025 9:30 AM EDGE BURNISHER Office Visit [facility] Health Weight Management Services [address] [facility] [place] [phone] Anusha Campa, [employer] VEHICLE CREWMAN-PNEUMATIC SYSTEM CONVEYOR OPERATOR [address] [place] [address] Scheduled Orders Name Type Priority Associated Diagnoses Orde r Schedule CBC WITH DIFFERENTIAL Lab Routine Overweight with body mass index (BMI) of 26 to 26.9 in adult S/P laparoscopic sleeve gastrectomy Elevated hemoglobin (HCC) Expected: 04/01/2024 (Approximate), Expires: 01/26/2025 COMPREHENSIVE METABOLIC PANEL Lab Routine Overweight with body mass index (BMI) of 26 to 26.9 in adult S/P laparoscopic sleeve gastrectomy Elevated liver enzymes Expected: 04/01/2024 (Approximate), Expires: 01/26/2025 FERRITIN Lab Routine Overweight with body mass index (BMI) of 26 to 26.9 in adult S/P laparoscopic sleeve gastrectomy Elevated liver enzymes Expected: 04/01/2024 (Approximate), Expires: 01/26/2025 LIPID PROFILE Lab Routine Overweight with body mass index (BMI) of 26 to 26.9 in adult S/P laparoscopic sleeve gastrectomy Hypercholesteremia Expected: 04/01/2024 (Approximate), Expires: 01/26/2025 MAGNESIUM BLOOD Lab Routine Overweight with body mass index (BMI) of 26 to 26.9 in adult S/P laparoscopic sleeve gastrectomy Expected: 04/01/2024 (Approximate), Expires: 01/26/2025 VITAMIN D 25-HYDROXY Lab Routine Overweight with body mass index (BMI) of 26 to 26.9 in adult S/P laparoscopic sleeve gastrectomy Vitamin D deficiency Expected: 04/01/2024 (Approximate), Expires: 01/26/2025 VITAMIN B12 FOLATE PANEL Lab Routine Overweight with body mass index (BMI) of 26 to 26.9 in adult S/P laparoscopic sleeve gastrectomy Elevated hemoglobin (HCC) Expected: 04/01/2024 (Approximate), Expires: 01/26/2025 VITAMIN B1 Lab Routine Overweight with body mass index (BMI) of 26 to 26.9 in adult S/P laparoscopic sleeve gastrectomy Expected: 04/01/2024 (Approximate), Expires: 01/26/2025 PTH INTACT+CALCIUM Lab Routine Overweight with body mass index (BMI) of 26 to 26.9 in adult S/P laparoscopic sleeve gastrectomy Vitamin D deficiency Expected: 04/01/2024 (Approximate), Expires: 01/26/2025 PHOSPHORUS BLOOD Lab Routine Overweight with body mass index (BMI) of 26 to 26.9 in adult S/P laparoscopic sleeve gastrectomy Expected: 04/01/2024 (Approximate), Expires: 01/26/2025 IRON + TRANSFERRIN PANEL Lab Routine Overweight with body mass index (BMI) of 26 to 26.9 in adult S/P laparoscopic sleeve gastrectomy Expected: 04/01/2024 (Approximate), Expires: 01/26/2025 TSH Lab Routine Overweight with body mass index (BMI) of 26 to 26.9 in adult S/P laparoscopic sleeve gastrectomy Thyroid 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 abnormal 1 Occurrences starting 01/27/2024 until 01/21/2025 Scheduled Procedures Name Priority Associated Diagnoses Date/Ti nm ESOPHAGOGASTRODUODENOSCOPY ( EGD) BIOPSY Status post bariatric surgery 04/25/2024 9:44 AM CDT documented as of this encounter Visit Diagnoses Diagnosis Overweight with body mass index (BMI) of 26 to 26.9 in adult- Primary S/P laparoscopic sleeve gastrectomy Thyroid 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 abnormal Nonspecific abnormal results of thyroid function study Vitamin D deficiency Elevated liver enzymes Nonspecific elevation of levels of transaminase or lactic acid dehydrogenase (LDH) Elevated hemoglobin (HCC) Other hemoglobinopathies Hypercholesteremia Pure hypercholesterolemia Status post bariatric surgery Bariatric surgery status documented in this encounter Care Teams Manager English Relationship Specialty Start Date End Date Betty Rodriguez MD [address] [place] [phone] PCP - General Internal Medicine 09/02/22 documented as of this encounter
--- OUTSIDE RECORDS SUMMARY | 2024-02-06 01:10 | XMS_ITS | Encounter Summary ---
Author Organization [facility] Address [address] [place] [address] Care Team Providers Care Atomic Welder Name Role Phone Betty Rodriguez MD Primary Care Provider [phone] Reason for Visit * Reason Comments Refill Request Encounter Details Date Type Department Care Team (Late st Contact Info) Description 11/09/2023 Refill [facility] Services [address] [place] [phone] Anusha Campa, MARINE ENGINEERING PROFESSOR-SUSTAINABLE DESIGN CONSULTANT [address] [place] [address] Refill Request Social History Tobacco Use Types Packs/Day Years [...] Date Recorded Patient Health Questionnaire-2 Score 0 07/20/2023 Sex and Gender Information Value Date Recorded Sex Assigned at Not on file Gender Identity Not on file Sexual Orientation Not on file documented as of this encounter Functional Status Functional Status Response [...] No 01/17/2023 documented as of this encounter Plan of Treatment Upcoming Encounters Date Type Department Care Team (Latest Contact Info) Description 04/25/2024 9:44 AM CDT Hospital Encounter [facility] [address] [place] [address] Eliana Enriquez MD [address] [place] [address] Surgery General 04/25/2024 9:44 AM CDT - 04/25/2024 10:10 AM CDT Surgery [facility] [address] [place] [address] Eliana Enriquez MD [address] [place] [phone] ESOPHAGOGASTRODUODENOSCOPY WITH BIOPSY 05/03/2024 9:30 AM CDT Office Visit [facility] [address] [place] [phone] Eliana Enriquez MD [address] [place] [address] 07/19/2024 9:00 AM CDT Office Visit [facility] [address] [place] [address] Anusha Campa, MARINE ENGINEERING PROFESSOR-SUSTAINABLE DESIGN CONSULTANT [address] [place] [address] 01/18/2025 9:00 AM DRUM FILLER Clinical Support [facility] Weight Management [facility] [address] [place] [address] 01/18/2025 9:30 AM DRUM FILLER Office Visit [facility] [address] [place] [address] Anusha Campa, MARINE ENGINEERING PROFESSOR-SUSTAINABLE DESIGN CONSULTANT [address] [place] [address] Scheduled Procedures Name Priority Associated Diagnoses Date/Ti pa ESOPHAGOGASTRODUODENOSCOPY ( EGD) BIOPSY Status post bariatric surgery 04/25/2024 9:44 AM CDT documented as of this encounter Visit Diagnoses Not on filedocumented in this encounter Care Teams Atomic Welder Relationship Specialty Start Date End Date Betty Rodriguez MD [address] [place] [address] PCP - General Internal Medicine 09/02/22 documented as of this encounter
--- OUTSIDE RECORDS SUMMARY | 2024-02-06 01:10 | XMS_ITS | Referral Summary ---
Author Organization [facility] Address [address] [place] [address] Care Team Providers Care Barrel Scraper Name Role Phone Betty Rodriguez MD Primary Care Provider [phone] Source Comments [facility],non-[facility] Affiliates and Associated Physician Practices is amultiple site organization consisting of ambulatory clinics and hospital sitesin [place], [place], [place] and [place]. This disclosure is being madepursuant to the Care Everywhere program and may not contain all information available regarding this patient. Last updated 17.[facility] Encounters Date Type Department Care Team Description 01/27/2024 9:00 AM CAP SEWER Office Visit [facility] [address] [place] [phone] Anusha Campa APRN-CNP Overweight with body mass index (BMI) of 26 to 26.9 in adult (Primary Dx); S/P laparoscopic sleeve gastrectomy; Thyroid 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 abnormal; Vitamin D deficiency; Elevated liver enzymes; Elevated hemoglobin (HCC); Hypercholesteremia 01/27/2024 9:30 AM CAP SEWER Clinical Support [facility] [address] [place] [address] S/P laparoscopic sleeve gastrectomy 11/09/2023 Refill [facility] [address] [place] [address] Anusha Campa APRN-CNP Refill Request from Last 3 Months Allergies No known active allergies Medications * Be aware that medications may not be up to date on this document. Alwaysverify current medications with the patient. Medication Sig Dispensed Refills Start Date End Date Status Calcium Carbonate (CALCIUM 600 PO) Take 600 mg by mouth 2 times daily 1 tab by mouth twice a day Active multivitamin daily tablet Take 1 (one) tablet by mouth 2 times daily Active acetaminophen (Tylenol) 325 MG tablet Take 1 (one) tablet by mouth every 4 hours as needed for Pain Maximum allowable Acetaminophen amount = 4 Grams (4000 mg) / 24 hours. Active diphenhydrAMINE-APA P, sleep, (TYLENOL PM EXTRA STRENGTH PO) Active mesalamine DR (Delzicol) 400 MG capsule 1 (one) capsule 3 times daily 01/25/2024 Active Active Problems Problem Noted Date Diagnosed Date Morbid obesity 01/17/2023 Social History Tobacco Use Types Packs/Day Years Used Date Smoking Tobacco: Never Smokeless Tobacco: Never Tobacco Cessation:Counseling Given: Not Answered Alcohol Use Standard Drinks/Week Comments Yes 0 [...] on file Sexual Orientation Not on file Last Filed Vital Signs Vital Sign Reading Time Taken Comments Blood Pressure 130/64 01/27/2024 8:00 AM CAP SEWER Pulse 64 01/27/2024 8:00 AM CAP SEWER Temperature 36.3 ??C (97.3 ??F) 01/27/2024 8:00 AM CS T Respiratory Rate 18 01/27/2024 8:00 AM CAP SEWER Oxygen Saturation 98% 01/27/2024 8:00 AM CAP SEWER Inhaled Oxygen Concentration 21% 01/17/2023 1 1:15 PM CAP SEWER Weight 88.7 kg (195 lb 8 oz) 01/27/2024 9:00 AM CAP SEWER Height 182 cm (5' 11.65 ) 01/27/2024 9:00 AM CAP SEWER Body Mass Index 26.77 01/27/2024 9:00 AM CAP SEWER Functional Status Functional Status Response Date of [...] person have difficulty concentrating/remembering/making decisions? No 01/17/2023 Plan of Treatment Upcoming Encounters Date Type Department Care Team (Latest Contact Info) Description 04/25/2024 9:44 AM CDT Hospital Encounter [facility] [address] [place] [address] Eliana Enriquez MD [address] [place] [phone] Surgery General 04/25/2024 9:44 AM CDT - 04/25/2024 10:10 AM CDT Surgery [facility] [address] [place] [address] Eliana Enriquez MD [address] [place] [phone] ESOPHAGOGASTRODUODENOSCOPY WITH BIOPSY 05/03/2024 9:30 AM CDT Office Visit [facility] [address] [place] [address] Eliana Enriquez MD [address] [place] [address] 07/19/2024 9:00 AM CDT Office Visit [facility] [address] [place] [address] Anusha Campa, SOIL ENGINEER-PARKING CASHIER [address] [place] [address] 01/18/2025 9:00 AM CAP SEWER Clinical Support [facility] [address] [place] [address] 01/18/2025 9:30 AM CAP SEWER Office Visit [facility] [address] [place] [address] Anusha Campa APRN-PARKING CASHIER [address] [place] [address] Scheduled Procedures Name Priority Associated Diagnoses Date/Ti me ESOPHAGOGASTRODUODENOSCOPY ( EGD) BIOPSY Status post bariatric surgery 04/25/2024 9:44 AM CDT Medical Devices Implanted Type Area Process Engineering Intern Device Identifier Shelf Expiration Date Model / Serial / Lot Kit Tissue Clsr Duo Tssl 1 Prefl Syr - [id number] Implanted:Qty: 1 on 01/17/2023 by Eliana Enriquez MD at [facility] [employer] 09/13/2024 [id number] / [id number] / [id number] Procedures Procedure Name Priority Date/Time Associated Diagnosis Comments COMPREHENSIVE METABOLIC PANEL Routine 07/21/2023 S/P laparoscopic sleeve gastrectomy Thyroid 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 abnormal LIPID PROFILE Routine 07/21/2023 S/P laparoscopic sleeve gastrectomy Thyroid 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 abnormal from Last 3 Months or Most Recently Relevant to Health Maintenance Results * COMPREHENSIVE METABOLIC PANEL (07/21/2023) Blood BLOOD SPECIMEN / Unknown 07/21/2023 Shanel Ware APRN-PARKING CASHIER [facility] [place] [facility] [facility] OTHER LAB * LIPID PROFILE (07/21/2023) Blood BLOOD SPECIMEN / Unknown 07/21/2023 Shanel Ware SOIL ENGINEER-PARKING CASHIER [facility] - [place] [facility] OTHER LAB from Last 3 Months or Most Recently Relevant to Health Maintenance Advance Directives Documents on File Type Date Recorded Patient Bellhop Captain Expl 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 Power of Attorne y for Healthcare * Full Code (Latest Code Status on File) Date Activated Date Inactivated Comments 01/17/2023 12:21 PM 01/18/2023 3:25 PM Care Teams Barrel Scraper Relationship Specialty Start Date End Date Betty Rodriguez MD [address] [place] [phone] PCP - General Internal Medicine 09/02/22
--- OUTSIDE RECORDS SUMMARY | 2024-02-06 01:10 | XMS_ITS | Encounter Summary ---
Author Organization [facility] Address [address] [place] [address] Care Team Providers Care Oracle Database Administrator Name Role Phone Betty Rodriguez MD Primary Care Provider [phone] Encounter Details Date Type Department Care Team (Late st Contact Info) Description 09/23/2023 Orders Only [facility] Management Services [address] [place] [address] Shanel Ware, MARINE TRANSPORT PROFESSIONALS-DIESEL TECHNICIAN MECHANIC [address] [place] [phone] S/P laparoscopic sleeve gastrectomy; Thyroid 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 abnormal Social History Tobacco Use Types Packs/Day Years [...] Description 04/25/2024 9:44 AM CDT Hospital Encounter [facility] [address] [place] [address] Eliana Enriquez MD [address] [place] [address] Surgery General 04/25/2024 9:44 AM CDT - 04/25/2024 10:10 AM CDT Surgery [facility] Op [address] [place] [address] Eliana Enriquez MD [address] [place] [address] ESOPHAGOGASTRODUODENOSCOPY WITH BIOPSY 05/03/2024 9:30 AM CDT Office Visit [facility] [address] [place] [phone] Eliana Enriquez MD [address] [place] [address] 07/19/2024 9:00 AM CDT Office Visit [facility] [address] [place] [address] Anusha Campa APRN-DIESEL TECHNICIAN MECHANIC [address] [place] [address] 01/18/2025 9:[address]ISTRAR Clinical Support [facility] Weight Management Services [address] [place] [address] 01/18/2025 9:[address] REGISTRAR Office Visit [facility] Management Services [address] [place] [address] Anusha Campa, MARINE TRANSPORT PROFESSIONALS-DIESEL TECHNICIAN MECHANIC [address] [place] [address] Scheduled Procedures Name Priority Associated Diagnoses Date/Ti me ESOPHAGOGASTRODUODENOSCOPY ( EGD) BIOPSY Status post bariatric surgery 04/25/2024 9:44 AM CDT documented as of this encounter Visit Diagnoses Diagnosis S/P laparoscopic sleeve gastrectomy Thyroid 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 abnormal Nonspecific abnormal results of thyroid function study Status post bariatric surgery Bariatric surgery status documented in this encounter Care Teams Oracle Database Administrator Relationship Specialty Start Date End Date Betty Rodriguez MD [address] [place] [phone] PCP - General Internal Medicine 09/02/22 documented as of this encounter
--- OUTSIDE RECORDS SUMMARY | 2024-02-06 01:10 | XMS_ITS | Patient Health Summary ---
Author Organization [facility] Address [address] [address] Care Team Providers Care Pulmonary Specialist Name Role Phone Betty Rodriguez MD Primary Care Provider [phone] Note from [facility] [place]non-owned Affiliates and Associated Physician Practices is amultiple site organization consisting of ambulatory clinics and hospital sitesin [place], [place], [place] and [place]. This disclosure is being madepursuant to the Care Everywhere program and may not contain all information available regarding this patient. Last updated 17.[facility] Allergies No known active allergies Medications * Be aware that medications may not be up to date on this document. Alwaysverify current medications with the patient. * Calcium Carbonate (CALCIUM 600 PO) Take 600 mg by mouth 2 times daily 1 tab by mouth twice a day * multivitamin daily tablet Take 1 (one) tablet by mouth 2 times daily * acetaminophen (Tylenol) 325 MG tablet Take 1 (one) tablet by mouth every 4 hours as needed for Pain Maximum allowable Acetaminophen amount = 4 Grams (4000 mg) / 24 hours. * diphenhydrAMINE-APAP, sleep, (TYLENOL PM EXTRA STRENGTH PO) * mesalamine DR (Delzicol) 400 MG capsule(Started 01/25/2024) 1 (one) capsule 3 times daily Active Problems Problem Noted Date Diagnosed Date [...] Comments Blood Pressure 130/64 01/27/2024 8:00 AM REHAB CARE ASSISTANT Pulse 64 01/27/2024 8:00 AM REHAB CARE ASSISTANT Temperature 36.3 ??C (97.3 ??F) 01/27/2024 8:00 AM CS T Respiratory Rate 18 01/27/2024 8:00 AM REHAB CARE ASSISTANT Oxygen Saturation 98% 01/27/2024 8:00 AM REHAB CARE ASSISTANT Inhaled Oxygen Concentration 21% 01/17/2023 1 1:15 PM REHAB CARE ASSISTANT Weight 88.7 kg (195 lb 8 oz) 01/27/2024 9:00 AM REHAB CARE ASSISTANT Height 182 cm (5' 11.65 ) 01/27/2024 9:00 AM REHAB CARE ASSISTANT Body Mass Index 26.77 01/27/2024 9:00 AM REHAB CARE ASSISTANT Medical Devices Implanted Type Area Gas Station Manager Device Identifier Shelf Expiration Date Model / Serial / Lot Kit Tissue Clsr Duo Tssl 1 Prefl Syr - [id number] Implanted:Qty: 1 on 01/17/2023 by Eliana Enriquez MD at [facility] 09/13/2024 [id number] / [id number] / [id number] Procedures * VITAMIN B1(Performed 07/21/2023) Performed for S/P laparoscopic sleeve gastrectomy, Thyroid 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 abnormal * PTH INTACT+CALCIUM(Performed 07/21/2023) Performed for S/P laparoscopic sleeve gastrectomy, Thyroid 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 abnormal * VITAMIN D 25-HYDROXY(Performed 07/21/2023) Performed for S/P laparoscopic sleeve gastrectomy, Thyroid 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 abnormal * CBC W AUTO DIFFERENTIAL(Performed 07/21/2023) Performed for S/P laparoscopic sleeve gastrectomy, Thyroid 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 abnormal * VITAMIN B12 FOLATE PANEL(Performed 07/21/2023) Performed for S/P laparoscopic sleeve gastrectomy, Thyroid 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 abnormal * FERRITIN(Performed 07/21/2023) Performed for S/P laparoscopic sleeve gastrectomy, Thyroid 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 abnormal * IRON + TRANSFERRIN PANEL(Performed 07/21/2023) Performed for S/P laparoscopic sleeve gastrectomy, Thyroid 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 abnormal * PHOSPHORUS BLOOD(Performed 07/21/2023) Performed for S/P laparoscopic sleeve gastrectomy, Thyroid 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 abnormal * MAGNESIUM BLOOD(Performed 07/21/2023) Performed for S/P laparoscopic sleeve gastrectomy, Thyroid 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 abnormal * LIPID PROFILE(Performed 07/21/2023) Performed for S/P laparoscopic sleeve gastrectomy, Thyroid 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 abnormal * COMPREHENSIVE METABOLIC PANEL(Performed 07/21/2023) Performed for S/P laparoscopic sleeve gastrectomy, Thyroid 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 abnormal * TSH(Performed 07/21/2023) Performed for S/P laparoscopic sleeve gastrectomy, Thyroid 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 abnormal * VITAMIN B1(Performed 05/12/2023) Performed for S/P laparoscopic sleeve gastrectomy, Thyroid 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 abnormal, Intestinal malabsorption, unspecified type (HCC) * PTH INTACT+CALCIUM(Performed 05/12/2023) Performed for S/P laparoscopic sleeve gastrectomy, Thyroid 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 abnormal, Intestinal malabsorption, unspecified type (HCC) * COMPREHENSIVE METABOLIC PANEL(Performed 05/12/2023) Performed for S/P laparoscopic sleeve gastrectomy, Thyroid 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 abnormal, Intestinal malabsorption, unspecified type (HCC) * TSH(Performed 05/12/2023) Performed for S/P laparoscopic sleeve gastrectomy, Thyroid 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 abnormal, Intestinal malabsorption, unspecified type (HCC) * PHOSPHORUS BLOOD(Performed 05/12/2023) Performed for S/P laparoscopic sleeve gastrectomy, Thyroid 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 abnormal, Intestinal malabsorption, unspecified type (HCC) * IRON + TRANSFERRIN PANEL(Performed 05/12/2023) Performed for S/P laparoscopic sleeve gastrectomy, Thyroid 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 abnormal, Intestinal malabsorption, unspecified type (HCC) * VITAMIN B12 FOLATE PANEL(Performed 05/12/2023) Performed for S/P laparoscopic sleeve gastrectomy, Thyroid 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 abnormal, Intestinal malabsorption, unspecified type (HCC) * FERRITIN(Performed 05/12/2023) Performed for S/P laparoscopic sleeve gastrectomy, Thyroid 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 abnormal, Intestinal malabsorption, unspecified type (HCC) * LIPID PROFILE(Performed 05/12/2023) Performed for S/P laparoscopic sleeve gastrectomy, Thyroid 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 abnormal, Intestinal malabsorption, unspecified type (HCC) * MAGNESIUM BLOOD(Performed 05/12/2023) Performed for S/P laparoscopic sleeve gastrectomy, Thyroid 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 abnormal, Intestinal malabsorption, unspecified type (HCC) * LAB MISC TEST(Performed 05/12/2023) * CBC W AUTO DIFFERENTIAL(Performed 05/12/2023) Performed for S/P laparoscopic sleeve gastrectomy, Thyroid 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 abnormal, Intestinal malabsorption, unspecified type (HCC) * CARDIAC RHYTHM STRIP ORDER(Performed 01/19/2023) * APHERESIS/TRANSFUSION ORDER(Performed 01/19/2023) * GLUCOSE - POINT OF CARE(Performed 01/18/2023) * GLUCOSE - POINT OF CARE(Performed 01/18/2023) * VITAMIN D 25-HYDROXY(Performed 01/18/2023) Performed for Vitamin D deficiency * LIPID PROFILE(Performed 01/18/2023) * TSH REFLEX FREE T4(Performed 01/18/2023) * HEMOGLOBIN A1C(Performed 01/18/2023) * PHOSPHORUS BLOOD(Performed 01/18/2023) * MAGNESIUM BLOOD(Performed 01/18/2023) * COMPREHENSIVE METABOLIC PANEL(Performed 01/18/2023) * CBC W AUTO DIFFERENTIAL(Performed 01/18/2023) * GLUCOSE - POINT OF CARE(Performed 01/17/2023) * MAGNESIUM BLOOD(Performed 01/17/2023) * GLUCOSE - POINT OF CARE(Performed 01/17/2023) * PHOSPHORUS BLOOD(Performed 01/17/2023) * MAGNESIUM BLOOD(Performed 01/17/2023) * COMPREHENSIVE METABOLIC PANEL(Performed 01/17/2023) * CBC W AUTO DIFFERENTIAL(Performed 01/17/2023) * GROSS + MICRO EXAM (ILL)(Performed 01/17/2023) Performed for Morbid obesity (HCC) * ENDOTRACHEAL TUBE NOTE(Performed 01/17/2023) * HI LAP SLEEVE GASTRECTOMY(Performed 01/17/2023) Performed for Morbid obesity (HCC) * US ABDOMEN LIMITED(Performed 01/11/2023) Performed for Elevated liver enzymes * US ABDOMEN COMPLETE(Performed 01/11/2023) * BLOOD TYPE VERIFICATION(Performed 01/10/2023) * TYPE + SCREEN PANEL(Performed 01/10/2023) Performed for Preop examination * LAB MISC TEST(Performed 12/30/2022) * CARDIAC RHYTHM STRIP ORDER(Performed 12/14/2022) * GROSS + MICRO EXAM (ILL)(Performed 12/13/2022) Performed for Gastric ulcer, unspecified chronicity, unspecified whether gastric ulcer hemorrhage or perforation present * HI EGD FLEX TRANSORAL W BX SNGL OR MULT(Performed 12/13/2022) Performed for Gastric ulcer, unspecified chronicity, unspecified whether gastric ulcer hemorrhage or perforation present * CARDIAC RHYTHM STRIP ORDER(Performed 11/15/2022) * GROSS + MICRO EXAM (ILL)(Performed 11/12/2022) Performed for Gastroesophageal reflux disease, unspecified whether esophagitis present, Screen for colon cancer * COLONOSCOPY REMOVAL OR ABLATION TUMOR/POLYP/LESION (ANY METHOD)(Performed 11/12/2022) Performed for Gastroesophageal reflux disease, unspecified whether esophagitis present, Screen for colon cancer * HI EGD FLEX TRANSORAL W BX SNGL OR MULT(Performed 11/12/2022) Performed for Gastroesophageal reflux disease, unspecified whether esophagitis present, Screen for colon cancer * CBC W AUTO DIFFERENTIAL(Performed 10/26/2022) * EKG 12-LEAD(Performed 09/07/2022) Performed for Morbid obesity (HCC), Preop examination * CBC W AUTO DIFFERENTIAL(Performed 09/07/2022) Performed for Elevated hemoglobin (HCC) * PT PTT PANEL(Performed 09/07/2022) Performed for Morbid obesity (HCC), Preop examination * HEMOGLOBIN A1C(Performed 09/07/2022) Performed for Morbid obesity (HCC), Preop examination * VITAMIN D 25-HYDROXY(Performed 09/07/2022) Performed for Morbid obesity (HCC), Preop examination * VITAMIN B1(Performed 09/07/2022) Performed for Morbid obesity (HCC), Preop examination * PTH INTACT+CALCIUM(Performed 09/07/2022) Performed for Morbid obesity (HCC), Preop examination * MAGNESIUM BLOOD(Performed 09/07/2022) Performed for Morbid obesity (HCC), Preop examination * FERRITIN(Performed 09/07/2022) Performed for Morbid obesity (HCC), Preop examination * COMPREHENSIVE METABOLIC PANEL(Performed 09/07/2022) Performed for Morbid obesity (HCC), Preop examination * TSH(Performed 09/07/2022) Performed for Morbid obesity (HCC), Preop examination * VITAMIN B12 FOLATE PANEL(Performed 09/07/2022) Performed for Morbid obesity (HCC), Preop examination * LIPID PROFILE(Performed 09/07/2022) Performed for Morbid obesity (HCC), Preop examination * IRON + TRANSFERRIN PANEL(Performed 09/07/2022) Performed for Morbid obesity (HCC), Preop examination * CBC W AUTO DIFFERENTIAL(Performed 09/07/2022) Performed for Morbid obesity (HCC), Preop examination * XR CHEST 2VW(Performed 09/07/2022) Performed for Morbid obesity (HCC), Preop examination Results * PTH INTACT+CALCIUM (07/21/2023) Only the most recent of3 resultswithin the time period is included. Blood BLOOD SPECIMEN / Unknown 07/21/2023 Shanel Ware APRN-[facility] - [place] ORDERABLES Performing Organization Address City/[facility]/ZIP Co de Phone Number OTHER LAB * VITAMIN B1 (07/21/2023) Only the most recent of3 resultswithin the time period is included. Blood BLOOD SPECIMEN / Unknown 07/21/2023 Shanel Ware APRN-DENTAL EQUIPMENT REPAIRER LAB - [place] ORDERABLES OTHER LAB * VITAMIN D 25-HYDROXY (07/21/2023) Only the most recent of3 resultswithin the time period is included. Blood BLOOD SPECIMEN / Unknown 07/21/2023 Shanel Ware MANAGEMENT ACCOUNTS MANAGER-[facility] - [place] ORDERABLES [facility] [address] [place], [place] [id number] [place] [address] * CBC WITH DIFFERENTIAL (07/21/2023) Only the most recent of7 resultswithin the time period is included. Blood BLOOD SPECIMEN / Unknown 07/21/2023 Shanel Ware APRN-DENTAL EQUIPMENT REPAIRER LAB - HEM ATOLOGY ORDERABLES OTHER LAB * COMPREHENSIVE METABOLIC PANEL (07/21/2023) Only the most recent of5 resultswithin the time period is included. Blood BLOOD SPECIMEN / Unknown 07/21/2023 Shanel Ware APRN-DENTAL EQUIPMENT REPAIRER [facility] - [place] ORDERABLES Performing Organization Address City/[facility] Co de Phone Number OTHER LAB * PHOSPHORUS BLOOD (07/21/2023) Only the most recent of4 resultswithin the time period is included. Blood BLOOD SPECIMEN / Unknown 07/21/2023 Shanel Ware APRN-DENTAL EQUIPMENT REPAIRER [facility] - [place] ORDERABLES Performing Organization Address City/[facility] Co de Phone Number OTHER LAB * MAGNESIUM BLOOD (07/21/2023) Only the most recent of6 resultswithin the time period is included. Blood BLOOD SPECIMEN / Unknown 07/21/2023 Shanel Ware APRN-DENTAL EQUIPMENT REPAIRER [facility] - [place] ORDERABLES OTHER LAB * VITAMIN B12 FOLATE PANEL (07/21/2023) Only the most recent of3 resultswithin the time period is included. Blood BLOOD SPECIMEN / Unknown 07/21/2023 Shanel Ware APRN-DENTAL EQUIPMENT REPAIRER LAB - [place] ORDERABLES [facility] [address] [place] [address], [facility] * TSH (07/21/2023) Only the most recent of3 resultswithin the time period is included. Blood BLOOD SPECIMEN / Unknown 07/21/2023 Shanel Ware APRN-DENTAL EQUIPMENT REPAIRER LAB - [place] ORDERABLES Performing Organization Address City/[facility]/ZIP Co de Phone Number OTHER LAB * IRON + TRANSFERRIN PANEL (07/21/2023) Only the most recent of3 resultswithin the time period is included. Blood BLOOD SPECIMEN / Unknown 07/21/2023 Shanel Ware APRN-DENTAL EQUIPMENT REPAIRER [facility] - [place] ORDERABLES Performing Organization Address [facility] Co de Phone Number OTHER LAB * FERRITIN (07/21/2023) Only the most recent of3 resultswithin the time period is included. Blood BLOOD SPECIMEN / Unknown 07/21/2023 Shanel Ware APRN-DENTAL EQUIPMENT REPAIRER LAB - [place] ORDERABLES Performing Organization Address City/[facility]/ZIP Co de Phone Number OTHER LAB * LIPID PROFILE (07/21/2023) Only the most recent of4 resultswithin the time period is included. Blood BLOOD SPECIMEN / Unknown 07/21/2023 Shanel Ware APRN-DENTAL EQUIPMENT REPAIRER LAB - [place] ORDERABLES OTHER LAB * LAB MISC TEST (05/12/2023) Only the most recent of2 resultswithin the time period is included. Blood BLOOD SPECIMEN / Unknown Historical Provider LAB SEND OUT * CARDIAC RHYTHM STRIP ORDER (01/19/2023 3:11 PM REHAB CARE ASSISTANT) Only the most recent of3 resultswithin the time period is included. Narrative 01/19/2023 3:11 PM REHAB CARE ASSISTANT Ordered by an unspecified provider. Scanned Document CARDIAC SERVICES ORD ERABLES * APHERESIS/TRANSFUSION ORDER (01/19/2023 2:32 PM REHAB CARE ASSISTANT) Narrative 01/19/2023 2:32 PM REHAB CARE ASSISTANT Ordered by an unspecified provider. Scanned Document NURSING - VITAL SIGN S AND ASSESSMENT * GLUCOSE - POINT OF CARE (01/18/2023 11:19 AM REHAB CARE ASSISTANT) Only the most recent of4 resultswithin the time period is included. Glucose WB/POC 111 70 - 125 mg/dL 01/18/2023 11:29 AM REHAB CARE ASSISTANT [facility] Specimen Type Arterial 01/18/2023 11:29 AM REHAB CARE ASSISTANT [facility] Blood BLOOD SPECIMEN / Unknown 01/18/2023 11:19 AM REHAB CARE ASSISTANT 01/18/2023 11:29 AM REHAB CARE ASSISTANT Eliana Enriquez MD LAB - POINT OF C ARE ORDERABLES Performing Organization Address City/[facility]/ZIP Co de Phone Number [facility] [address] * TSH REFLEX FREE T4 (01/18/2023 5:48 AM REHAB CARE ASSISTANT) Pathologist [facility] TSH 1.9327 0.35 - 4.94 uIU/mL 01/18/2023 6:46 AM REHAB CARE ASSISTANT [facility] Comment:TSH Normal, Reflex F ree T4 Not Performed. Blood BLOOD SPECIMEN / Unknown Lab Venipuncture / Unknown 01/18/2023 5:48 AM REHAB CARE ASSISTANT 01/18/2023 6:03 AM REHAB CARE ASSISTANT Nicolette OVIEDO LAB - CHEMISTRY ORDERABLES Performing Organization Address City/[facility]/ZIP Co de Phone Number [facility] [address] * HEMOGLOBIN A1C (01/18/2023 5:48 AM REHAB CARE ASSISTANT) Only the most recent of2 resultswithin the time period is included. Hemoglobin A1c 5.1 4.2 - 5.6 % 01/18/2023 6:13 AM REHAB CARE ASSISTANT [facility] Estimated Average Glucose 100 mg/dL 01/18/2023 6:13 AM REHAB CARE ASSISTANT [facility] Blood BLOOD SPECIMEN / Unknown Lab Venipuncture / Unknown 01/18/2023 5:48 AM REHAB CARE ASSISTANT 01/18/2023 6:03 AM REHAB CARE ASSISTANT Narrative [facility] - 01/18/2023 6:13 AM [facility] HbA1c Interpretation: Normal: < 5.7% Pre-diabetes: 5.7-6.4% Diabetes: Equal to or greater than 6.5% Test results diagnostic of diabetes should be repeated for confirmation. Treatment target values recommended by ADA and other clinical organizations should be used to evaluate metabolic control in patients. This test should not replace glucose testing for patients with Type 1 diabetes, pediatric patients, or women. ??Falsely low HbA1c results may be observed in patients with clinical conditions that shorten erythrocyte life span or decrease mean erythrocyte age such as the presence of unstable hemoglobin variants, elevated hemoglobin F level or other causes of hemolytic anemia. ??HbA1c may not accurately reflect glycemic control when clinical conditions that affect erythrocyte survival are present. ??Severe Iron deficiency anemia may yield falsely high results. ??Hemoglobin A1c assay should not be used to diagnose or monitor diabetes in patients with malignancy, recent blood transfusion, chronic kidney or liver disease. ?? This method may yield falsely low results when hemoglobin (HbF) exceeds 5% in the specimen. The [place] Alinity assay for the measurement of HbA1c is a National Glycohemoglobin Standardization Program (NGSP) certified method. Eliana Enriquez MD LAB - CHEMISTRY ORDERABLES Performing Organization Address City/State/[facility] Co de Phone Number [facility] [address] * GROSS + MICRO EXAM (ILL) (01/17/2023 10:44 AM REHAB CARE ASSISTANT) Only the most recent of3 resultswithin the time period is included. Case Report Surgical Pathology Report ? Case: [id number] ? Authorizing Provider: ??Eliana Enriquez MD ??Collected: ? 01/17/2023 10:44 AM ? Ordering Location: ? [facility] ? Received: ?01/18/2023 09:13 AM ? Pathologist: ? Dwight Mendez MD ? Specimen: ?Stomach Resect Sub, Stomach Remnants - Sleeve Gastrectomy ? 01/21/2023 12:25 PM [facility] Final Diagnosis Stomach, partial resection: Chronic gastritis with intestinal metaplasia, negative for Helicobacter. Comment: Helicobacter pylori IHC stain is negative. 01/21/2023 12:25 PM [facility] Microscopic Description and Comment Microscopic examination is performed and substantiates the above diagnosis. 01/21/2023 12:25 PM [facility] Gross Description The requisition and specimen(s) are identified with the patient's name, Jayesh Anderson. Received in formalin, specimen stomach remnants-sleeve gastrectomy , is a stapled portion of stomach 25.3 x 5.6 x 3.1 cm demonstrating purple cordero to focally hemorrhagic and smooth to focally superficially disrupted serosa with scant attached yellow-cordero perigastric adipose tissue. Opening reveals pink-cordero to focally hemorrhagic mucosa with prominent rugal folds, no lesions or masses grossly identified. The wall thickness is 0.1-0.2 cm. Order Entry sections are submitted in cassettes A1-A2 with sections subjacent to the staple line in A1. AW 01/21/2023 12:25 PM [facility] Pathologist Location at [facility] 01/21/2023 12:25 PM [facility] Disclaimer The performance characteristics of all immunohistochemical and indirect immunofluorescence stains (if any) cited in this report were determined by the Histopathology Laboratory of [facility]. Some of these tests were developed by our own laboratory and have not been cleared or approved by the US Food and Drug Administration. The FDA does not require this test to go through premarket FDA review. These tests are used for clinical purposes. They should not be regarded as investigational or for research. This laboratory is certified under the Clinical Laboratory Improvement Amendments (CLIA) as qualified to perform high complexity clinical laboratory testing. H&E slides and special stains prepared at [facility], [place]. [address] (CLIA# [id number]) unless otherwise specified. This case was interpreted by the [facility] Department of Pathology. When applicable, select reference laboratory testing is performed at the [facility], [address] [place] [address]. 01/21/2023 12:25 PM [facility] Embedded Images 01/21/2023 12:25 PM [facility] Pathology/Cytolo gy SPECIMEN FROM STOMACH OBTAINED BY PARTIAL GASTRECTOMY / Unknown 01/17/2023 10:44 AM REHAB CARE ASSISTANT 01/18/2023 9:13 AM REHAB CARE ASSISTANT Comment:Pre-op diagnosis: Morbid obesity (CMS/HCC) [E66.01] Eliana Enriquez MD LAB - PATHOLOGY/ CYTOLOGY ORDERABLES Performing Organization Address City/State/[facility] Co de Phone Number [facility] [address] * ETT LINE PERFORMABLE (01/17/2023 10:13 AM REHAB CARE ASSISTANT) Narrative Danny Wilkins APRN-CRNA - 01/17/2023 10:13 AM REHAB CARE ASSISTANT Danny Wilkins APRN-CRNA ? 01/17/2023 10:14 AM Endotracheal Tube Placement: ? Patient Location: OR. Intubation Event Date/Time: ??01/17/2023 9:30 AM Procedure: intubation (96886). Procedure Section: ?? Sedation: under general anesthesia. Indications for Airway Management: ??anesthesia Induction: modified rapid sequence Patient Position: ??sniffing and ramp/troop pillow Mask Ventilation: not attempted. Blade Type: Sisi Blade Size: 4 Laryngoscopy View: grade 3 (epiglottis) Intubation Adjuncts: stylet Tube: endotracheal tube Placement: oral Tube type: cuff - inflated Tube Size (FR): 7.5 Depth of Insertion (CM): 23 Measured From: lips Cuff Inflated With: air Number of Attempts: 1. Placement Verified By: bilateral breath sounds, chest auscultation and CO2 monitor Tube secured with: ??adhesive tape. Dentition unchanged? ??Yes Difficult Airway? ??No. Procedure Start Time: 01/17/2023 9:30 AM. Staff Section ? Anesthesia Provider: Danny Wilkins APRN-CRNA, Performed the procedure ? Provider #1: Samantha Lucero MD. Samantha Lucero MD GENERAL ANESTHESIA O RDERABLES * US ABDOMEN LIMITED (01/11/2023) Anatomical Region Laterality Modality Abdomen Ultrasound Shanel Ware APRN-[facility] US ORDERA BLES * US ABDOMEN COMPLETE (01/11/2023) Anatomical Region Laterality Modality Abdomen Ultrasound Historical Provider US ORDERABLES * BLOOD TYPE VERIFICATION (01/10/2023 12:01 PM REHAB CARE ASSISTANT) ABO Rh A POS 01/10/2023 12:51 PM REHAB CARE ASSISTANT [facility] Blood Bank BLOOD SPECIMEN / Unknown Lab Venipuncture / Unknown 01/10/2023 12:01 PM REHAB CARE ASSISTANT 01/10/2023 12:05 PM REHAB CARE ASSISTANT Eliana Enriquez MD LAB - BLOOD BANK ORDERABLES [facility] [address] * TYPE + SCREEN PANEL (01/10/2023 11:45 AM REHAB CARE ASSISTANT) ABO Rh A POS 01/10/2023 12:50 PM REHAB CARE ASSISTANT [facility] Antibody Screen NEG 12:50 PM REHAB CARE ASSISTANT [facility] Blood Bank BLOOD SPECIMEN / Unknown Lab Venipuncture / Unknown 01/10/2023 11:45 AM REHAB CARE ASSISTANT 01/10/2023 11:48 AM REHAB CARE ASSISTANT Gabbie Contreras MD LAB - BLOOD BA NK ORDERABLES [facility] [address] * PT PTT PANEL (09/07/2022) Blood BLOOD SPECIMEN / Unknown 09/07/2022 Anusha Campa APRN-DENTAL EQUIPMENT REPAIRER LAB - COAGULATIO N ORDERABLES OTHER LAB * XR CHEST 2VW (09/07/2022) Anatomical Region Laterality Modality Chest Other Anusha Campa APRN-DENTAL EQUIPMENT REPAIRER DIAGNOSTIC IMAGI NG ORDERABLES * EKG 12-LEAD (09/07/2022) Anusha Campa MANAGEMENT ACCOUNTS MANAGER-DENTAL EQUIPMENT REPAIRER ECG ORDERABLES Care Teams Pulmonary Specialist Relationship Specialty Start Date End Date Betty Rodriguez MD [address] [place] [id number] PCP - General Internal Medicine 09/02/22
--- OUTSIDE RECORDS SUMMARY | 2024-02-06 01:10 | XMS_ITS | Encounter Summary ---
Author Organization [facility] Address [address] [place] [address] Care Team Providers Care Adult Basic Studies Teacher Name Role Phone Betty Rodriguez MD Primary Care Provider [phone] Encounter Details Date Type Department Care Team (Late st Contact Info) Description 07/28/2023 Orders Only [facility] Weight Management Services [address] [place] [address] Shanel Ware, CLINICAL DOCUMENTATION NURSE-ODD PIECE CHECKER [address] [place] [phone] S/P laparoscopic sleeve gastrectomy; Thyroid 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 [...] Description 04/25/2024 9:44 AM CDT Hospital Encounter [facility] [address] [place] [address] Eliana Enriquez MD [address] [place] [address] Surgery General 04/25/2024 9:44 AM CDT - 04/25/2024 10:10 AM CDT Surgery [facility] - Dena Op [address] [place] [address] Eliana Enriquez MD [address] [place] [address] ESOPHAGOGASTRODUODENOSCOPY WITH BIOPSY 05/03/2024 9:30 AM CDT Office Visit [facility] Weight Management Services [address] [place] [address] Eliana Enriquez MD [address] [place] [address] 07/19/2024 9:00 AM CDT Office Visit [facility] Weight Management Services [address] [place] [address] Anusha Campa APRN-ODD PIECE CHECKER [address] [place] [address] 01/18/2025 9:00 AM CONSTRUCTION STONEMASON Clinical Support [facility] Health Weight Management Services [address] [place] [address] 01/18/2025 9:30 AM CONSTRUCTION STONEMASON Office Visit [facility] Health Weight Management Services [address] [place] [address] Anusha Campa, CLINICAL DOCUMENTATION NURSE-ODD PIECE CHECKER [address] [place] [address] Scheduled Procedures Name Priority Associated Diagnoses Date/Ti me ESOPHAGOGASTRODUODENOSCOPY ( EGD) BIOPSY Status post bariatric surgery 04/25/2024 9:44 AM CDT documented as of this encounter Procedures Procedure Name Priority Date/Time Associated Diagnosis Comments PTH INTACT+CALCIUM Routine 07/21/2023 S/P laparoscopic sleeve gastrectomy Thyroid 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 abnormal VITAMIN D 25-HYDROXY Routine 07/21/2023 S/P laparoscopic sleeve gastrectomy Thyroid 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 abnormal CBC W AUTO DIFFERENTIAL Routine 07/21/2023 S/P laparoscopic sleeve gastrectomy Thyroid 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 abnormal COMPREHENSIVE METABOLIC PANEL Routine 07/21/2023 S/P laparoscopic sleeve gastrectomy Thyroid 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 abnormal PHOSPHORUS BLOOD Routine 07/21/2023 S/P laparoscopic sleeve gastrectomy Thyroid 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 abnormal MAGNESIUM BLOOD Routine 07/21/2023 S/P laparoscopic sleeve gastrectomy Thyroid 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 abnormal VITAMIN B12 FOLATE PANEL Routine 07/21/2023 S/P laparoscopic sleeve gastrectomy Thyroid 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 abnormal TSH Routine 07/21/2023 S/P laparoscopic sleeve gastrectomy Thyroid 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 abnormal IRON + TRANSFERRIN PANEL Routine 07/21/2023 S/P laparoscopic sleeve gastrectomy Thyroid 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 abnormal FERRITIN Routine 07/21/2023 S/P laparoscopic sleeve gastrectomy Thyroid 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 abnormal LIPID PROFILE Routine 07/21/2023 S/P laparoscopic sleeve gastrectomy Thyroid 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 abnormal documented in this encounter Results * PTH INTACT+CALCIUM (07/21/2023) Blood BLOOD SPECIMEN / Unknown 07/21/2023 Shanel Ware APRN-ODD PIECE CHECKER LAB - [place] ORDERABLES Performing Organization Address City/State/[facility] Co de Phone Number OTHER LAB * VITAMIN D 25-HYDROXY (07/21/2023) Blood BLOOD SPECIMEN / Unknown 07/21/2023 Shanel Ware CLINICAL DOCUMENTATION NURSE-ODD PIECE CHECKER LAB - [place] ORDERABLES Performing Organization Address [facility] Co de Phone Number [facility] [address] * CBC WITH DIFFERENTIAL (07/21/2023) Blood BLOOD SPECIMEN / Unknown 07/21/2023 Shanel Ware APRN-ODD PIECE CHECKER LAB - [place] ATOLOGY ORDERABLES Performing Organization Address [facility] Co de Phone Number OTHER LAB * VITAMIN B12 FOLATE PANEL (07/21/2023) Blood BLOOD SPECIMEN / Unknown 07/21/2023 Shanel Ware CLINICAL DOCUMENTATION NURSE-ODD PIECE CHECKER LAB - [place] ORDERABLES Performing Organization Address [facility] Co de Phone Number [facility] [address] * FERRITIN (07/21/2023) Blood BLOOD SPECIMEN / Unknown 07/21/2023 Shanel Ware CLINICAL DOCUMENTATION NURSE-ODD PIECE CHECKER LAB - [place] ORDERABLES Performing Organization Address City/[facility] Co de Phone Number OTHER LAB * IRON + TRANSFERRIN PANEL (07/21/2023) Blood BLOOD SPECIMEN / Unknown 07/21/2023 Shanel M Jeanie CLINICAL DOCUMENTATION NURSE-ODD PIECE CHECKER LAB - [place] ORDERABLES OTHER LAB * PHOSPHORUS BLOOD (07/21/2023) Blood BLOOD SPECIMEN / Unknown 07/21/2023 Shanel Herberth Jeanie CLINICAL DOCUMENTATION NURSE-ODD PIECE CHECKER LAB - [place] ORDERABLES OTHER LAB * MAGNESIUM BLOOD (07/21/2023) Blood BLOOD SPECIMEN / Unknown 07/21/2023 Shanel Ware CLINICAL DOCUMENTATION NURSE-ODD PIECE CHECKER LAB - [place] ORDERABLES OTHER LAB * LIPID PROFILE (07/21/2023) Blood BLOOD SPECIMEN / Unknown 07/21/2023 Shanel Ware APRN-ODD PIECE CHECKER LAB - [place] ORDERABLES OTHER LAB * COMPREHENSIVE METABOLIC PANEL (07/21/2023) Blood BLOOD SPECIMEN / Unknown 07/21/2023 Shanel Ware CLINICAL DOCUMENTATION NURSE-ODD PIECE CHECKER LAB - [place] ORDER[place]LES OTHER LAB * TSH (07/21/2023) Blood BLOOD SPECIMEN / Unknown 07/21/2023 Shanel Ware CLINICAL DOCUMENTATION NURSE-ODD PIECE CHECKER LAB - [place] ORDER[place]LES OTHER LAB documented in this encounter Visit Diagnoses Diagnosis S/P laparoscopic sleeve gastrectomy Thyroid 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 abnormal Nonspecific abnormal results of thyroid function study Status post bariatric surgery Bariatric surgery status documented in this encounter Care Teams Adult Basic Studies Teacher Relationship Specialty Start Date End Date Betty Rodriguez MD [address] [place] [address] PCP - General Internal Medicine 09/02/22 documented as of this encounter
--- OUTSIDE RECORDS SUMMARY | 2024-02-06 01:10 | XMS_ITS | Encounter Summary ---
Author Organization [facility] Address [address] [place] [address] Care Team Providers Care Head Track Coach Name Role Phone Betty Rodriguez MD Primary Care Provider [phone] Encounter Details Date Type Department Care Team (Late st Contact Info) Description 08/01/2023 Orders Only [facility] Weight Management Services [address] [place] [address] Shanel Ware, TUBE BALANCER-DIRECTOR HEALTH [address] [place] [phone] S/P laparoscopic sleeve gastrectomy; Thyroid 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 [...] Description 04/25/2024 9:44 AM CDT Hospital Encounter [facility] Dena Op [address] [place] [address] Eliana Enriquez MD [address] [place] [address] Surgery General 04/25/2024 9:44 AM CDT - 04/25/2024 10:10 AM CDT Surgery [facility] - Dena Op [address] [place] [address] Eliana Enriquez MD [address] [place] [address] ESOPHAGOGASTRODUODENOSCOPY WITH BIOPSY 05/03/2024 9:30 AM CDT Office Visit [facility] Weight Management Services [address] [place] [phone] Eliana Enriquez MD [address] [place] [address] 07/19/2024 9:00 AM CDT Office Visit [facility] Weight Management Services [address] [place] [address] Anusha Campa APRN-DIRECTOR HEALTH [address] [place] [address] 01/18/2025 9:00 AM CART ATTENDANT Clinical Support [facility] Health Weight Management Services [address] [place] [address] 01/18/2025 9:30 AM CART ATTENDANT Office Visit [facility] Health Weight Management Services [address] [place] [address] Anusha Campa APRN-DIRECTOR HEALTH [address] [place] [address] Scheduled Procedures Name Priority Associated Diagnoses Date/Ti me ESOPHAGOGASTRODUODENOSCOPY ( EGD) BIOPSY Status post bariatric surgery 04/25/2024 9:44 AM CDT documented as of this encounter Procedures Procedure Name Priority Date/Time Associated Diagnosis Comments VITAMIN B1 Routine 07/21/2023 S/P laparoscopic sleeve gastrectomy Thyroid 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 abnormal documented in this encounter Results * VITAMIN B1 (07/21/2023) Blood BLOOD SPECIMEN / Unknown 07/21/2023 Shanel Ware TUBE BALANCER-DIRECTOR HEALTH LAB - [place] ORDERABLES OTHER LAB documented in this encounter Visit Diagnoses Diagnosis S/P laparoscopic sleeve gastrectomy Thyroid 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 abnormal Nonspecific abnormal results of thyroid function study Status post bariatric surgery Bariatric surgery status documented in this encounter Care Teams Head Track Coach Relationship Specialty Start Date End Date Betty Rodriguez MD [address] [place] [address] PCP - General Internal Medicine 09/02/22 documented as of this encounter
--- OUTSIDE RECORDS SUMMARY | 2024-02-06 01:10 | XMS_ITS | Clinical Summary ---
Author Organization [facility] Address [address] [place] [address] Care Team Providers Care Associate Manager Affiliate Marketing Name Role Phone Betty Rodriguez MD Primary Care Provider [phone] Source Comments [facility],non-owned Affiliates and Associated Physician Practices is amultiple site organization consisting of ambulatory clinics and hospital sitesin [place], [place], [place] and [place]. This disclosure is being madepursuant to the Care Everywhere program and may not contain all information available regarding this patient. Last updated 17.[facility] Allergies No known active allergies Medications * [...] Noted Date Diagnosed Date Morbid obesity 01/17/2023 Encounters Date Type Department Care Team Description 01/27/2024 9:30 AM JACQUARD CARD CUTTER Clinical Support [facility] Weight Management Services [address] [place] [address] S/P laparoscopic sleeve gastrectomy 01/27/2024 9:00 AM JACQUARD CARD CUTTER Office Visit [facility] Health Weight Management Services [address] [place] [address] Anusha Campa APRN-CNP Overweight with body mass index (BMI) of 26 to 26.9 in adult (Primary Dx); S/P laparoscopic sleeve gastrectomy; Thyroid 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 abnormal; Vitamin D deficiency; Elevated liver enzymes; Elevated hemoglobin (HCC); Hypercholesteremia 11/09/2023 Refill [facility] Health Weight Management Services [address] [place] [address] Anusha Campa APRN-CNP Refill Request from Last 3 Months Family History Medical History Relation Name Comments Cancer Mother Diabetes; unknown type Mother Relation Name Status Comments Mother Social History Tobacco Use Types Packs/Day Years [...] Comments Blood Pressure 130/64 01/27/2024 8:00 AM JACQUARD CARD CUTTER Pulse 64 01/27/2024 8:00 AM JACQUARD CARD CUTTER Temperature 36.3 ??C (97.3 ??F) 01/27/2024 8:00 AM CS T Respiratory Rate 18 01/27/2024 8:00 AM JACQUARD CARD CUTTER Oxygen Saturation 98% 01/27/2024 8:00 AM JACQUARD CARD CUTTER Inhaled Oxygen Concentration 21% 01/17/2023 1 1:15 PM JACQUARD CARD CUTTER Weight 88.7 kg (195 lb 8 oz) 01/27/2024 9:00 AM JACQUARD CARD CUTTER Height 182 cm (5' 11.65 ) 01/27/2024 9:00 AM JACQUARD CARD CUTTER Body Mass Index 26.77 01/27/2024 9:00 AM JACQUARD CARD CUTTER Plan of Treatment Upcoming Encounters Date Type Department Care Team (Latest Contact Info) Description 04/25/2024 9:44 AM CDT Hospital Encounter [facility] - Dena Op [address] [place] [address] Eliana Enriquez MD [address] [place] [address] Surgery General 04/25/2024 9:44 AM CDT - 04/25/2024 10:10 AM CDT Surgery [facility] - Dena Op [address] [place] [address] Eliana Enriquez MD [address] [place] [address] ESOPHAGOGASTRODUODENOSCOPY WITH BIOPSY 05/03/2024 9:30 AM CDT Office Visit [facility] Health Weight Management Services [address] [place] [address] Eliana Enriquez MD [address] [place] [address] 07/19/2024 9:00 AM CDT Office Visit [facility] Health Weight Management Services [address] [place] [address] Anusha Campa, WELL CONTROL INSTRUCTOR-MARKETING EFFECTIVENESS MANAGER [address] [place] [address] 01/18/2025 9:00 AM JACQUARD CARD CUTTER Clinical Support [facility] Health Weight Management Services [address] [place] [address] 01/18/2025 9:30 AM JACQUARD CARD CUTTER Office Visit [facility] Health Weight Management Services [address] [place] [address] Anusha Campa, WELL CONTROL INSTRUCTOR-MARKETING EFFECTIVENESS MANAGER [address] [place] [address] Scheduled Procedures Name Priority Associated Diagnoses Date/Ti me ESOPHAGOGASTRODUODENOSCOPY ( EGD) BIOPSY Status post bariatric surgery 04/25/2024 9:44 AM CDT Health Maintenance Due Date Last Done Comments COLOGUARD (AGES 45-75) - COLON CA SCREENING 1955 CT COLONOGRAPHY - COLON CA SCREENING 1955 FIT - COLON CA SCREENING 1955 FLEX SIG - COLON CA SCREENING 1955 HEPATITIS C SCREENING 01/30/1971 DTAP/TDAP/TD VACCINES (1 - Tdap) 02/04/1972 ZOSTER VACCINE (1 of 2) 2003 PNEUMOCOCCAL VACCINE 65+ (1 of 1 - PCV) 2018 MEDICARE AWV ? CALENDAR YEAR 2023 COVID-19 VACCINE ( - season) 2023 INFLUENZA VACCINE (#1) 2023 11/22/2022 COLON MONITORING 11/12/2025 11/12/2022 Colorectal Cancer Screening 11/12/2025 SCREENING FOR DIABETES 07/20/2026 , 05/12/2023, 01/18/2023, Additional history exists Respiratory Syncytial Virus (RSV) Vaccine Pt: or over 60 yrs (1 - 1-dose 75+ series) 02/04/2028 LIPID TESTING 07/20/2028 07/21/2023, 04/15, 01/18/2023, Additional history exists COLONOSCOPY - COLON CA SCREENING 11/12/2032 11/12/2022 DEPRESSION SCREENING Completed 05/11/2023 HEPATITIS B VACCINE Aged Out No longe r eligible based on patient's age to complete this topic HIB VACCINE Aged Out No longer eligi ble based on patient's age to complete this topic HPV VACCINE Aged Out No longer eligi ble based on patient's age to complete this topic MENINGOCOCCAL VACCINE Aged Out No nicol sheldon eligible based on patient's age to complete this topic Medical Devices Implanted Type [employer] Specialist Device Identifier Shelf Expiration Date Model / Serial / Lot Kit Tissue Clsr Duo Tssl 1 Prefl Syr - [id number] Implanted:Qty: 1 on 01/17/2023 by Eliana Enriquez MD at [facility] 09/13/2024 [id number] / [id number] / [id number] Procedures Procedure Name Priority Date/Time Associated Diagnosis Comments COMPREHENSIVE METABOLIC PANEL Routine 07/21/2023 S/P laparoscopic sleeve gastrectomy Thyroid 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 abnormal LIPID PROFILE Routine 07/21/2023 S/P laparoscopic sleeve gastrectomy Thyroid 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 abnormal from Last 3 Months or Most Recently Relevant to Health Maintenance Results * COMPREHENSIVE METABOLIC PANEL (07/21/2023) Blood BLOOD SPECIMEN / Unknown 07/21/2023 Shanel Ware WELL CONTROL INSTRUCTOR-MARKETING EFFECTIVENESS MANAGER LAB - [place] ORDERABLES OTHER LAB * LIPID PROFILE (07/21/2023) Blood BLOOD SPECIMEN / Unknown 07/21/2023 Shanel Ware WELL CONTROL INSTRUCTOR-MARKETING EFFECTIVENESS MANAGER LAB - [place] ORDERABLES OTHER LAB from Last 3 Months or Most Recently Relevant to Health Maintenance Advance Directives Documents on File Type Date Recorded Patient Dermatological Surgeon Expl 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 Power of Attorne y for Healthcare * Full Code (Latest Code Status on File) Date Activated Date Inactivated Comments 01/17/2023 12:21 PM 01/18/2023 3:25 PM Care Teams Associate Manager Affiliate Marketing Relationship Specialty Start Date End Date Betty Rodriguez MD [address] [place] [address] PCP - General Internal Medicine 09/02/22
--- OUTSIDE RECORDS SUMMARY | 2024-02-06 01:10 | XMS_ITS | Encounter Summary ---
Author Organization [facility] Address [address] [place] [address] Care Team Providers Care Chemical Dependency Counselor Name Role Phone Betty Rodriguez MD Primary Care Provider [phone] Encounter Details Date Type Department Care Team (Latest Contact Info) Description 01/27/2024 9:30 AM SUPPLY CHAIN ASSOCIATE Clinical Support [facility] Weight Management Services [address] [place] [address] S/P laparoscopic sleeve gastrectomy Social History Tobacco Use Types Packs/Day Years [...] Sign Reading Time Taken Comments Blood Pressure - - Pulse - - Temperature - - Respiratory Rate - - Oxygen Saturation - - Inhaled Oxygen Concentration - - Weight 88.7 kg (195 lb 8 oz) 01/27/2024 9:00 AM SUPPLY CHAIN ASSOCIATE Height 182 cm (5' 11.65 ) 01/27/2024 9:00 AM SUPPLY CHAIN ASSOCIATE Body Mass Index 26.77 01/27/2024 9:00 AM SUPPLY CHAIN ASSOCIATE documented in this encounter Functional Status Functional [...] No 01/17/2023 documented as of this encounter Progress Notes * Rosalba Lewis, BRENT/HUY - 01/27/2024 9:30 AM CST MEDICAL NUTRITION THERAPY Weight Management Services Bariatric Surgery Follow-Up Session Number: (1 year s/p VSG) Session Date: 01/27/24 Patient: Jayesh Anderson Date of : 1955 (68 year old) PCP Physician: Betty Rodriguez MD Referring Physician: Zoe NUTRITION ASSESSMENT Primary Diagnoses/Co-morbidities: (overweight, s/p VSG) Secondary Diagnoses/Co-morbidities: Hypertension (GERD, SA, UC) Have you seen a dietitian?: Yes Pertinent Labs: reviewed- B12 1000, ferritin >1000 Pertinent Medications: reviewed Current V/M Supplements: BA chewy MV BID, BA calcium chews TID- recommended BID Eating History Are you following a special diet at home?: Weight Reduction Are you having trouble following your diet?: No Are you having any trouble eating?: No Are you avoiding salty food, and not adding salt to your food?: No Are you limiting your liquids?: No How much liquids per day do you drink?: 64+ oz Usual Number of Times You Eat Out Per Week : (rare) Who prepares the meals?: Self Exercise Type of exercise?: (remodeling house) Weight History Height: 182 cm (5' 11.65 ) Initial Program Weight: 368.8# BMI 50.01 Current Weight: 88.7 kg (195 lb 8 oz) Weight Method : Standing scale BMI (Calculated): 26.77 Has your weight changed since last visit?: Loss # (18.8#) Total Program Weight Loss: 173.3# Pt seen for nutrition f/u. Pt is 1 year s/p VSG by Dr. Enriquez. Pt's weight is down 18.8# since last visit, down 173.3# since beginning program. Pt reports drinking 1 protein shake and 1 protein smoothie daily- bananas, yogurt, ice, 1 scoop whey protein powder. Pt reports no issues drinking adequate fluids- 64+ oz in decaf coffee alone. Pt reports in remission for UC but is still having some diarrhea, however pt admits to eating and drinking together. Reviewed food recall and vitamins. 24 Hour Food Recall (Current) Breakfast - protein shake- Premier cafe latte, grapefruit Lunch - smoothie, 2-3 slices deli ham Dinner - hamburger on bun with pickles, mustard, ketchup Snacks - none Beverages - 10 c decaf coffee, water NUTRITION DIAGNOSIS Diagnosis: Overweight/obesity Related to: (hx excessive kcal intake) As evidenced by: BMI 26.77. NUTRITION INTERVENTION Interventions: Motivational interviewing;Goal setting;Self-monitoring;Problem solving;Recommended modifications;Collaboration with other providers Reviewed healthy balance diet for weight loss using protein shakes. Reviewed the lees bariatric diet principles. Further instruction provided for phases of bariatric diet. Reinforced behavior changes for bariatric diet such as no straws and smaller plate. Explained importance of continued bariatric vitamin/mineral and protein supplementation. Pt v/u. Reviewed phase IV foods, portion sizes, max intake of 1 c/meal, limit CHOs to <1/2 c/day and reinforced introducing new foods one at a time to assess tolerance. Reinforced importance of 80+ g protein/day and 64+ oz low kcal, sugar-free, decaf, non-carbonated fluids/day. Reviewed mindful eating te chniques. Reinforced not eating and drinking at same time. Reinforced importance of bariatric MV orMV BID and 500 mg calcium citrate BID at least an hour apart from MV per ASMBS guidelines to prevent nutritional deficiencies. Reinforced physical activity of 150+ minutes weekly to promote weight loss and for cardiovascular benefits. Pt v/u and agreeable to f/u at annual post op. External Barriers to Change: diarrhea d/t eating and drinking together or UC NUTRITION MONITORING/EVALUATION Nutrient Needs: Goals: Nutrition Goal #1: 80+ g protein daily Nutrition Goal #2: 64+ oz fluids daily Nutrition Goal#3: 150+ min exercise per week Monitor/Evaluation: Monitoring and evaluation: Fluid/beverage intake;Food intake;Protein intake;Carbohydrate intake;Mineral/element intake;Food and nutrition knowledge/skills;Beliefs and attitudes;Adherence;Physical activity;Weight change;Body Mass index RD contact information provided. Pt encouraged to call RD with questions and/or concerns. Evaluation of Overall Compliance Potential: Comprehension: Often Demonstrated Receptivity: Often Demonstrated Adherence: Often Demonstrated Session Information Session Date: 01/27/24 Session beginning time: 919 Session ending time: 924 Session total minutes: 5 Minutes Teaching Method: Explanation;Demonstration;Teach Back Next visit: (2 years post op) Total MNT minutes this calendar year: Nutritional Review Cleared, additional RD visits required pre-op ___ Cleared, no additional RD visits required pre-op ___ Not cleared, additional RD visit(s) required pre-op ___ Continue with post op RD visits per protocol _X__ Rosalba Lewis RD/LDN LY CHAIN ASSOCIATE documented in this encounter Plan of Treatment Upcoming Encounters Date Type Department Care Team (Latest Contact Info) Description 04/25/2024 9:44 AM CDT Hospital Encounter [facility] Op [address] [place] [address] Eliana Enriquez MD [address] [place] [phone] Surgery General 04/25/2024 9:44 AM CDT - 04/25/2024 10:10 AM CDT Surgery [facility] - Dena Op [address] [place] [address] Eliana Enriquez MD [address] [place] [address] ESOPHAGOGASTRODUODENOSCOPY WITH BIOPSY 05/03/2024 9:30 AM CDT Office Visit [facility] Weight Management Services [address] [place] [address] Eliana Enriquez MD [address] [place] [phone] 07/19/2024 9:00 AM CDT Office Visit [facility] Health Weight Management Services [address] [place] [address] Anusha Campa, WASTE PICKER-TAPE FASTENER MACHINE OPERATOR [address] [place], [place] [address] 01/18/2025 9:00 AM SUPPLY CHAIN ASSOCIATE Clinical Support [facility] Health Weight Management Services [address] [place] [address] 01/18/2025 9:30 AM SUPPLY CHAIN ASSOCIATE Office Visit [facility] Weight Management Services [address] [place] [address] Anusha Campa, WASTE PICKER-TAPE FASTENER MACHINE OPERATOR [address] [place], [place] [address] Scheduled Procedures Name Priority Associated Diagnoses Date/Ti me ESOPHAGOGASTRODUODENOSCOPY ( EGD) BIOPSY Status post bariatric surgery 04/25/2024 9:44 AM CDT documented as of this encounter Visit Diagnoses Diagnosis S/P laparoscopic sleeve gastrectomy- Primary Status post bariatric surgery Bariatric surgery status documented in this encounter Care Teams Chemical Dependency Counselor Relationship Specialty Start Date End Date Betty Rodriguez MD [address] [place] [address] PCP - General Internal Medicine 09/02/22 documented as of this encounter
--- OUTSIDE RECORDS SUMMARY | 2024-02-06 01:11 | XMS_ITS | Encounter Summary ---
Author Organization [facility] Address [address] [place] [address] Care Team Providers Care Tunnel Kiln Repairer Name Role Phone Betty Rodriguez MD Primary Care Provider [phone] Reason for Visit * Reason Comments Bariatric Surgery Follow-up 3 month post op Encounter Details Date Type Department Care Team (Late st Contact Info) Description 05/11/2023 10:00 AM CDT Office Visit [facility] [address] [place] [phone] Shanel Ware, LASTING MACHINE OPERATOR HAND METHOD-COLLET DRILLER [address] [place] [address] S/P laparoscopic sleeve gastrectomy (Primary Dx); Thyroid 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 abnormal; Intestinal malabsorption, unspecified type (HCC) Social History Tobacco Use Types Packs/Day Years Used Date Smoking Tobacco: Never Smokeless Tobacco: Never Alcohol Use Standard Drinks/Week Comments Not Currently 0 (1 standard drink = 0.6 oz pur e alcohol) 2-3x weekly AUDIT-C Answer Date Recorded Q1: How often [...] Date Recorded Patient Health Questionnaire-2 Score 0 05/11/2023 Sex and Gender Information Value Date Recorded Sex Assigned at Not on file Gender Identity Not on file Sexual Orientation Not on file documented as of this encounter Last Filed Vital Signs Vital Sign Reading Time Taken Comments Blood Pressure 124/76 05/11/2023 9:46 AM CDT Pulse 50 05/11/2023 9:46 AM CDT Temperature 36.3 ??C (97.3 ??F) 05/11/2023 9:46 AM CD T Respiratory Rate 20 05/11/2023 9:46 AM CDT Oxygen Saturation 100% 05/11/2023 9:46 AM CDT Inhaled Oxygen Concentration - - Weight 108.9 kg (240 lb 1.6 oz) 05/11/2023 9:46 AM CDT Height 182.9 cm (6') 05/11/2023 9:46 AM CDT Body Mass Index 32.56 05/11/2023 9:46 AM CDT documented in this encounter Functional Status Functional [...] as of this encounter Progress Notes * Shanel Ware, LASTING MACHINE OPERATOR HAND METHOD-COLLET DRILLER - 05/11/2023 9:52 AM CDT [facility] [place] [address] . . Date of encounter: No admission date for patient encounter. Pt Name: Jayesh Anderson : 1955 AGE: [age] year old SEX: male CSN: [id number] Visit type: Bariatric Post Operative visit Patients Primary care provider is : Betty Rodriguez MD Subjective: Jayesh Anderson presents to the clinic 3 months following sleeve gastrectomy. he was seen in clinic last on 02/18/23. Patient is taking 60 grams of proteins supplements daily. Patient is attending support group meeting. The patient has been participating in an online supportgroup. Patient is taking 64 oz of fluid per day. Doing 20-30 minutes of exercise at least 5 days per week. Patient is taking Bariatric multivitamins. Patient is not having Reflux, Vomiting, Dysphagia, Abdominal Pain and Cough, The patient is not having any pain. Bowel movement are Normal. Has the patient been readmitted to the hospital since the last follow up ? No Has the patient had any post bariatric [...] Total Wt Loss in lb: 128.7 lb Obesity History Years of being overweight? 40yrs Age of first weight loss attempt? 18 Highest weight as an adult? 320 Goal Weight? 200 BMI: Body mass index is 32.56 kg/m??. Past Medical History: Diagnosis Date ??? GERD (gastroesophageal reflux disease) ??? HTN (hypertension) ??? Sleep apnea CPAP Past Surgical History: Procedure Laterality Date ??? COLONOSCOPY WITH POLYPECTOMY N/A 11/12/2022 N/A; COLONOSCOPY with polypectomy ??? ENDOSCOPY, UPPER N/A 11/12/2022 N/A; ESOPHAGOGASTRODUODENOSCOPY with biopsy ??? ENDOSCOPY, UPPER N/A 12/13/2022 N/A; ESOPHAGOGASTRODUODENOSCOPY WITH BIOPSY ??? Gastrectomy N/A 01/17/2023 N/A; LAPAROSCOPIC SLEEVE GASTRECTOMY ??? Lumbar Diskectomy ??? Meniscectomy Bilateral Social history: Social History Socioeconomic History ??? Marital status: Spouse name: Not on file ??? Number of children: Not on file ??? Years of education: Not on file ??? Highest education level: Not on file Occupational History ??? Not on file Tobacco Use ??? Smoking status: Never ??? Smokeless tobacco: Never Vaping Use ??? Vaping Use: Never used Substance and Sexual Activity ??? Alcohol use: Not Currently Comment: 2-3x weekly ??? Drug use: Never ??? Sexual activity: Not on file Other Topics Concern ??? Not on file Social History Narrative ??? Not on file Social Determinants of Health Financial Resource Strain: Not on file Food Insecurity: Not on file Transportation Needs: Not on file Stress: Not on file Housing Stability: Not on file Family History: Family History Problem Relation Name Age of Onset ??? Cancer Mother ??? Diabetes; unknown type Mother Medications: Outpatient Medications Marked as Taking for the 05/11/23 encounter (Office Visit) with Shanel Ware APRN-CNP Medication Sig ??? Calcium Carbonate (CALCIUM 600 PO) Take 600 mg by mouth 2 times daily 1 tab by mouth twice a day ??? multivitamin daily tablet Take 1 (one) tablet by mouth 2 times daily (Not in a hospital admission) Allergy: No Known Allergies ROS: A comprehensive review of systems was negative except as described in HPI. Objective: BP 124/76 Pulse 50 Temp 97.3 ??F (36.3 ??C) (Temporal) Resp 20 Ht 1.829 m (6') Wt 108.9 kg (240 lb 1.6 oz) SpO2 100% Weight: 108.9 kg (240 lb 1.6 oz) Height: 182.9 cm (6') Body mass index is 32.56 kg/m??. Jayesh had a score of 0 on the PHQ Depression Screening. As a follow-up, I will continue to monitor patient. Constitutional: Alert, awake and oriented without any apparent discomfort. Eyes: Anicteric. No subconjunctival hemorrhage. Neck Exam: Supple. Trachea midline. No thyromegaly. No cervical or supraclavicular lymphadenopathy. Respiratory: Lungs were clear to auscultation bilaterally. No rales, rhonchi. Cardiovascular: Regular rate and rhythm. No rub, murmur or gallop Abdomen: soft, non tender, non distended. No palpable visceromegaly. No palpable ventral hernias. Skin: [place] and moist. No ulcers, rashes, or lesions. [...] ALT 38 48 Recent Labs Component Name 01/18/23 0548 HDL 51 TRIG 86 TSH 1.9327 Recent Labs Component Name 01/18/23 0548 HGBA1C 5.1 Recent Labs Component Name 01/18/23 0548 TSH 1.9327 Recent Labs Component Name 01/18/23 0548 TSH 1.9327 No results for input(s): IRON in the last 08440 hours. No results for input(s): CXPHPJHW25 in the last 25463 hours. No results for input(s): VITAMINA in the last 82638 hours. No results for input(s): IRON in the last 93884 hours. No results for input(s): VITK1 in the last 50943 hours. No results for input(s): [id number] in the last 81841 hours. No results for input(s): ALPHATOCOPH in the last 73448 hours. No results for input(s): GAMMATOCOPH in the last 96549 hours. No results for input(s): MAGMGDL in the last 37344 hours. Recent Labs Component Name 01/18/23 0548 PHOS 3.05 Some lab results will be in paper format so may be scanned in the EMR. Imaging studies No results found. Some Imaging studies results will be in paper format so may be scanned in the EMR. Assessment and Plan History of Morbid Obesity : Change in weight as noted in the weight history above. Total weight loss since starting the program:128.7 pounds Current BMI Body mass index is 32.56 kg/m??. with weight of Weight: 108.9 kg (240 lb 1.6 oz) . Patient is losing weight. Patient is controlling Carbs and Sugar well. Controlling portions well. BMI of 32.56 S/P Bariatric Surgery : s/p: Sleeve Gastrectomy??. Date of surgery 01/17/23. @ [facility], by Dr. Enriquez. ?? Doing well postoperative. ? He can discontinue Prilosec, Colon Health and Actigall. ?? May use fiber supplementation like Bene fiber 1-2 teaspoon twice daily in the protein supplementation to prevent constipation. ?? Patient was recommended to take about 60-80 g of protein per day, and get involved in an exercise plan. The patient is also recommended to attend support group meetings.I also explained to??him??thathe??should take 2 adult multivitamin tablets, and 1500 mg of calcium citrate. Patient was made aware of the nutrition deficiency should he??fail to take supplementation. ?? History of??Gastric Ulcer Preop??EGD 11/12/22. Showed??2 antral ulcers.??He underwent repeat EGD 12/13/22 which was normal. ?? History of??Hypertension?? Patient??was recently taken off of??lisinopril/??hydrochlorothiazide. Blood pressure in the office today??124/76.? Sleep apnea Patient had a sleep study which showed sleep apnea. Weight loss could help with resolving this condition as well. Patient was encouraged to utilize CPAP/ BiPAP as pre recommended settings. He continues to use CPAP. ?? History of??Hypercholesterolemia?? Patient??recently taken off of??Lipitor 40 mg for this.?? Will recheck lipid panel with 3 month post op labs. ?? Colon cancer screening He denies family history of colon cancer.?He underwent colonoscopy by Dr. Enriquez 11/12/22. ??Findings: ??several benign-appearing colon polyps removed,??sigmoid colon diverticulosis?Pathology:?Ascending polyp, polypectomy/adenoma.?Sigmoid polyps:?Polypoid colonic mucosa with a mild l jennifer propria chronic inflammation.??Recommended??repeat colonoscopy in 3 years 10/2025. ?? Abnormal Thyroid On initial lab testing TSH was abnormal 4.05.??TSH normal 01/18/23. Continue follow up with PCP.?? Will recheck with 3 month post op labs. ?? History of??Vitamin D deficiency He had low vitamin D on initial testing. ??He completed??supplementation per protocol. Repeat vit D103/21/22 was normal at 42.0.?? Will recheck with 3 month post op labs. ?? Umbilical hernia I discussed with the patient his incarcerated umbilical hernia. ??He is interested in weight loss surgery. ??Will proceed with weight loss surgery 1st and then umbilical hernia repair if he becomes symptomatic in the future. I counseled the patient on continuing Behavior and Lifestyle Modifications : Eat 1-2 small meals daily and protein supplementation. Recommended to take about 60-80 g of protein per day. Eliminate high [...] Labs ordered: Routine Vitamin and Lab check. Lab orders given to pt. Plan : as above recommendation. Follow up with: Surgeons / PA/ PATIENT SUPPORT ASSISTANT : 3 months. Dietitian: as scheduled. He verbalized understanding and is agreeable to this plan after shared decision making with patient. Shanel Ware, MOHINI-COLLET DRILLER CC: Betty Rodriguez MD documented in this encounter Plan of Treatment Upcoming Encounters Date Type Department Care Team (Latest Contact Info) Description 04/25/2024 9:44 AM CDT Hospital Encounter [facility] [address], [place] [id number] Eliana Enriquez MD [address] [place] [address] Surgery General 04/25/2024 9:44 AM CDT - 04/25/2024 10:10 AM CDT Surgery [facility] Op [address] [place] [address] Eliana Enriquez MD [address] [place] [phone] ESOPHAGOGASTRODUODENOSCOPY WITH BIOPSY 05/03/2024 9:30 AM CDT Office Visit [facility] [address] [place] [address] Eliana Enriquez MD [address] [place] [phone] 07/19/2024 9:00 AM CDT Office Visit [facility] [address] [place] [address] Anusha Campa, LASTING MACHINE OPERATOR HAND METHOD-COLLET DRILLER [address] [place] [address] 01/18/2025 9:00 AM TRANSPORTATION ENGINEER Clinical Support [facility] [address] [place] [phone] 01/18/2025 9:30 AM TRANSPORTATION ENGINEER Office Visit [facility] [address] [place] [address] Anusha Campa, LASTING MACHINE OPERATOR HAND METHOD-COLLET DRILLER [address] [place] [address] Scheduled Orders Name Type Priority Associated Diagnoses Orde r Schedule VITAMIN D 25-HYDROXY Lab Routine S/P laparoscopic sleeve gastrectomy Thyroid 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 abnormal Intestinal malabsorption, unspecified type (HCC) Expected: 07/15/2023 (Approximate), Expires: 05/10/2024 Scheduled Procedures Name Priority Associated Diagnoses Date/Ti me ESOPHAGOGASTRODUODENOSCOPY ( EGD) BIOPSY Status post bariatric surgery 04/25/2024 9:44 AM CDT documented as of this encounter Results * TSH (05/12/2023) Blood BLOOD SPECIMEN / Unknown 05/12/2023 Shanel Ware LASTING MACHINE OPERATOR HAND METHOD-COLLET DRILLER [facility] [place] [facility] ORDER[facility]LES OTHER LAB * IRON + TRANSFERRIN PANEL (05/12/2023) Blood BLOOD SPECIMEN / Unknown 05/12/2023 Shanel Ware LASTING MACHINE OPERATOR HAND METHOD-COLLET DRILLER [facility] [place] [facility] OTHER LAB * PHOSPHORUS BLOOD (05/12/2023) Blood BLOOD SPECIMEN / Unknown 05/12/2023 Shanel Ware APRN-COLLET DRILLER [facility] [place] [facility] OTHER LAB * PTH INTACT+CALCIUM (05/12/2023) Blood BLOOD SPECIMEN / Unknown 05/12/2023 Shanel Ware LASTING MACHINE OPERATOR HAND METHOD-COLLET DRILLER [facility] [place] [facility] [facility] OTHER LAB * VITAMIN B1 (05/12/2023) Blood BLOOD SPECIMEN / Unknown 05/12/2023 Shanel Ware LASTING MACHINE OPERATOR HAND METHOD-COLLET DRILLER [facility] [place] [facility] OTHER LAB * VITAMIN B12 FOLATE PANEL (05/12/2023) Blood BLOOD SPECIMEN / Unknown 05/12/2023 Shanel Kevin Jeanie LASTING MACHINE OPERATOR HAND METHOD-COLLET DRILLER [facility] [place] [facility] OTHER LAB * MAGNESIUM BLOOD (05/12/2023) Blood BLOOD SPECIMEN / Unknown 05/12/2023 Shanel Kevin Jeanie LASTING MACHINE OPERATOR HAND METHOD-COLLET DRILLER [facility] [place] [facility] [facility] OTHER LAB * LIPID PROFILE (05/12/2023) Blood BLOOD SPECIMEN / Unknown 05/12/2023 Shanel Kevin Jeanie LASTING MACHINE OPERATOR HAND METHOD-COLLET DRILLER [facility] [place] [facility] Performing Organization Address City/[facility]/ZIP Co de Phone Number OTHER LAB * FERRITIN (05/12/2023) Blood BLOOD SPECIMEN / Unknown 05/12/2023 Shanel M Jeanie MAYAN-COLLET DRILLER [facility] [place] [facility] [facility] Performing Organization Address City/[facility] Co de Phone Number OTHER LAB * COMPREHENSIVE METABOLIC PANEL (05/12/2023) Blood BLOOD SPECIMEN / Unknown 05/12/2023 Shanel M Jeanie LASTING MACHINE OPERATOR HAND METHOD-COLLET DRILLER [facility] [place] [facility] [facility] OTHER LAB * CBC WITH DIFFERENTIAL (05/12/2023) Blood BLOOD SPECIMEN / Unknown 05/12/2023 Shanel Ware APRN-COLLET DRILLER [facility] - [facility] ORDER[facility] OTHER LAB documented in this encounter Visit Diagnoses Diagnosis S/P laparoscopic sleeve gastrectomy- Primary Thyroid 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 abnormal Nonspecific abnormal results of thyroid function study Intestinal malabsorption, unspecified type (HCC) Status post bariatric surgery Bariatric surgery status documented in this encounter Care Teams Tunnel Kiln Repairer Relationship Specialty Start Date End Date Betty Rodriguez MD [address] [place] [address] PCP - General Internal Medicine 09/02/22 documented as of this encounter
--- OUTSIDE RECORDS SUMMARY | 2024-02-06 01:11 | XMS_ITS | Encounter Summary ---
Author Organization [facility] Address [address] [place] [address] Care Team Providers Care Quality Assurance Qa Lab Analyst Name Role Phone Betty Rodriguez MD Primary Care Provider [phone] Reason for Visit * Reason Comments Bariatric Surgery Follow-up Encounter Details Date Type Department Care Team (Late st Contact Info) Description 02/18/2023 9:30 AM AUTOMOBILE ACCESSORIES SALESPERSON Office Visit [facility] Weight Management Services [address] [place] [address] Shanel Ware, COMPLAINT EVALUATION OFFICER-ROSTER CLERK [address] [place] [address] S/P laparoscopic sleeve gastrectomy (Primary Dx); Vitamin D deficiency Social History Tobacco Use Types Packs/Day Years [...] more drinks on one occasion? Never 01/17/2023 Sex and Gender Information Value Date Recorded Sex Assigned at Not on file Gender Identity Not on file Sexual Orientation Not on file documented as of this encounter Last Filed Vital Signs Vital Sign Reading Time Taken Comments Blood Pressure 128/72 02/18/2023 9:00 AM AUTOMOBILE ACCESSORIES SALESPERSON Pulse 65 02/18/2023 9:00 AM AUTOMOBILE ACCESSORIES SALESPERSON Temperature 36.2 ??C (97.1 ??F) 02/18/2023 9:00 AM CS T Respiratory Rate 16 02/18/2023 9:00 AM AUTOMOBILE ACCESSORIES SALESPERSON Oxygen Saturation 98% 02/18/2023 9:00 AM AUTOMOBILE ACCESSORIES SALESPERSON Inhaled Oxygen Concentration - - Weight 129 kg (284 lb 6.4 oz) 02/18/2023 9:00 AM AUTOMOBILE ACCESSORIES SALESPERSON Height 182.9 cm (6') 02/18/2023 9:00 AM AUTOMOBILE ACCESSORIES SALESPERSON Body Mass Index 38.57 02/18/2023 9:00 AM AUTOMOBILE ACCESSORIES SALESPERSON documented in this encounter Functional Status Functional [...] this encounter Progress Notes * Shanel Ware, COMPLAINT EVALUATION OFFICER-ROSTER CLERK - 02/18/2023 9:39 AM CST [facility] [place] [address] . . Date of encounter: No admission date for patient encounter. Pt Name: Jayesh Anderson : 1955 AGE: [age] year old SEX: male CSN: [id number] Visit type: Bariatric Post Operative visit Patients Primary care provider is : Betty Rodriguez MD Subjective: Jayesh Anderson presents to the clinic 1 month following sleeve gastrectomy. he was seen in clinic last on 01/27/23. Patient is taking 60 grams of proteins supplements daily. Patient is attending support group meeting. The patient has been participating in an online supportgroup. Patient is taking 64+ oz of fluid per day. Doing 30 minutes of exercise daily. Patient is taking Bariatric multivitamins. [...] hasthe pills and aware how to dispose. Obesity History Years of being overweight? 40yrs Age of first weight loss attempt? 18 Highest weight as an adult? 320 Goal Weight? 200 BMI: Body mass index is 38.57 kg/m??. Past Medical History: Diagnosis Date ??? [...] Outpatient Medications Marked as Taking for the 02/18/23 encounter (Office Visit) with Shanel Ware APRN-CNP Medication Sig ??? Calcium Carbonate (CALCIUM 600 PO) Take 600 mg by mouth 2 times daily 1 tab by mouth twice a day ??? multivitamin daily tablet Take 1 (one) tablet by mouth 2 times daily ??? omeprazole (PriLOSEC) 40 MG capsule Take 1 (one) capsule by mouth daily before breakfast ??? Probiotic Product (Sverve) capsule Take 1 (one) capsule by mouth once daily ??? ursodiol (Actigall) 300 MG capsule Take 1 (one) capsule by mouth 2 times daily for 90 days Do Not start until 1 week post op. Reasons: Post op laproscopic sleeve gastrectomy (Not in a hospital admission) Allergy: No Known Allergies ROS: A comprehensive review of systems was negative except as described in HPI. Objective: BP 128/72 Pulse 65 Temp 97.1 ??F (36.2 ??C) Resp 16 Ht 1.829 m (6') Wt 129 kg (284 lb 6.4oz) SpO2 98% Weight: 129 kg (284 lb 6.4 oz) Height: 182.9 cm (6') Body mass index is 38.57 kg/m??. Constitutional: Alert, awake and oriented without any apparent discomfort. Eyes: Anicteric. No subconjunctival hemorrhage. Neck Exam: Supple. Trachea midline. No thyromegaly. No cervical or supraclavicular lymphadenopathy. Respiratory: Lungs were clear to auscultation bilaterally. No rales, rhonchi. Cardiovascular: Regular rate and rhythm. No rub, murmur or gallop Abdomen: soft, non tender, non distended. No palpable visceromegaly. No palpable ventral hernias. Skin: [place] and moist. No ulcers, rashes, or lesions. [...] results for input(s): IRON in the last 44710 hours. No results for input(s): [id number] in the last 90606 hours. No results for input(s): VITAMINA in the last 12804 hours. No results for input(s): IRON in the last 50504 hours. No results for input(s): VITK1 in the last 81031 hours. No results for input(s): [id number] in the last 04368 hours. No results for input(s): ALPHATOCOPH in the last 61818 hours. No results for input(s): GAMMATOCOPH in the last 81248 hours. No results for input(s): MAGMGDL in the last 70096 hours. Recent Labs Component Name 01/18/2348 PHOS 3.05 Some lab results will be in paper format so may be scanned in the EMR. Imaging studies No results found. Some Imaging studies results will be in paper format so may be scanned in the EMR. Assessment and Plan Obesity : Change in weight as noted in the weight history above. Total weight loss since starting the program:84.4 pounds Current BMI Body mass index is 38.57 kg/m??. with weight of Weight: 129 kg (284 lb 6.4 oz) . Patient is losing weight. Patient is controlling Carbs and Sugar well. Controlling portions well. BMI of 38.57 S/P Bariatric Surgery : s/p: Sleeve Gastrectomy . Date of surgery 01/17/23. @ [facility], by Dr. Enriquez. ?? Doing well postoperative. ? Continue Prilosec 40 mg daily for 3 months. Continue Colon Health for 3 months. Start Actigall 10 days after surgery for 3 months. ?? May use fiber supplementation like Bene [...] deficiency should he fail to take supplementation. ?? History of??Gastric Ulcer Preop EGD 11/12/22. Showed??2 antral ulcers. He underwent repeat EGD 12/13/22 which was normal. ?? History of??Hypertension?? Patient??was recently taken off of??lisinopril/??hydrochlorothiazide. Blood pressure in the office today 128/72.? Sleep apnea Patient had a sleep study which showed sleep apnea. Weight loss could help with resolving this condition as well. Patient was encouraged to utilize CPAP/ BiPAP as pre recommended settings ?? History of??Hypercholesterolemia?? Patient??recently taken off of??Lipitor 40 mg for this.? Colon cancer screening He denies family history of colon cancer.?He underwent colonoscopy by Dr. Enriquez 11/12/22. ??Findings: ??several benign-appearing colon polyps removed,??sigmoid colon diverticulosis?Pathology:?Ascending polyp, polypectomy/adenoma.?Sigmoid polyps:?Polypoid colonic mucosa with a mild l jennifer propria chronic inflammation.??Recommended??repeat colonoscopy in 3 years 10/2025. ?? Abnormal Thyroid On initial lab testing TSH was abnormal 4.05.??Continue follow up with PCP. ?? History of Vitamin D deficiency He had low vitamin D on initial testing. ??He completed??supplementation per protocol. Repeat vit D103/21/22 was normal at 42.0. ?? Umbilical hernia I discussed with the [...] protein items. Reducing stress and emotional eating. Taking 20 minutes to eat a meal. Patient was instructed to keep a food journal. Patient was counseled on the need for routine exercise plan, at least 10 minutes per day. Plan : as above recommendation. Follow up with: Surgeons / PA/ FACE MAN : 2 months. Dietitian: as scheduled. He verbalized understanding and is agreeable to this plan after shared decision making with patient. Shanel Ware, COMPLAINT EVALUATION OFFICER-ROSTER CLERK CC: Betty Rodriguez MD MOBILE ACCESSORIES SALESPERSON documented in this encounter Plan of Treatment Upcoming Encounters Date Type Department Care Team (Latest Contact Info) Description 04/25/2024 9:44 AM CDT Hospital Encounter [facility] - [address] [place] [address] Eliana Enriquez MD [address] [place] [address] Surgery General 04/25/2024 9:44 AM CDT - 04/25/2024 10:10 AM CDT Surgery [facility] - [address] [place] [address] Eliana Enriquez MD [address] [place] [address] ESOPHAGOGASTRODUODENOSCOPY WITH BIOPSY 05/03/2024 9:30 AM CDT Office Visit [facility] Weight Management Services [address] [place] [address] Eliana Enriquez MD [address] [place] [address] 07/19/2024 9:00 AM CDT Office Visit [facility] Weight Management Services [address] [place] [address] Anusha Campa, COMPLAINT EVALUATION OFFICER-ROSTER CLERK [address] [place] [address] 01/18/2025 9:00 AM AUTOMOBILE ACCESSORIES SALESPERSON Clinical Support [facility] [address] [place] [address] 01/18/2025 9:30 AM AUTOMOBILE ACCESSORIES SALESPERSON Office Visit [facility] Management Services [address] [place] [address] Anusha Campa, COMPLAINT EVALUATION OFFICER-ROSTER CLERK [address] [place] [address] Scheduled Procedures Name Priority Associated Diagnoses Date/Ti me ESOPHAGOGASTRODUODENOSCOPY ( EGD) BIOPSY Status post bariatric surgery 04/25/2024 9:44 AM CDT documented as of this encounter Visit Diagnoses Diagnosis S/P laparoscopic sleeve gastrectomy- Primary Vitamin D deficiency Status post bariatric surgery Bariatric surgery status documented in this encounter Care Teams Quality Assurance Qa Lab Analyst Relationship Specialty Start Date End Date Betty Rodriguez MD [address] [place] [address] PCP - General Internal Medicine 09/02/22 documented as of this encounter
--- OUTSIDE RECORDS SUMMARY | 2024-02-06 01:11 | XMS_ITS | Encounter Summary ---
Author Organization [facility] Address [address] [place] [address] Care Team Providers Care Production Material Coordinator Name Role Phone Betty Rodriguez MD Primary Care Provider [phone] Encounter Details Date Type Department Care Team (Late st Contact Info) Description 05/19/2023 Orders Only [facility] Weight Management Services [address] [place] [address] Shanel Ware, ELECTROENCEPHALOGRAPH TECHNICIAN-PRODUCT/INDUSTRY CONSULTANT [address] [place] [address] S/P laparoscopic sleeve gastrectomy; Thyroid 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 abnormal; Intestinal malabsorption, unspecified [...] Description 04/25/2024 9:44 AM CDT Hospital Encounter [facility] [address] [place] [address] Eliana Enriquez MD [address] [place] [address] Surgery General 04/25/2024 9:44 AM CDT - 04/25/2024 10:10 AM CDT Surgery [facility] - [address] [place] [address] Eliana Enriquez MD [address] [place] [address] ESOPHAGOGASTRODUODENOSCOPY WITH BIOPSY 05/03/2024 9:30 AM CDT Office Visit [facility] Weight Management Services [facility] [place] [address] Eliana Enriquez MD [address] [place] [address] 07/19/2024 9:00 AM CDT Office Visit [facility] Weight Management Services [address] [place] [address] Anusha Campa, ELECTROENCEPHALOGRAPH TECHNICIAN-PRODUCT/INDUSTRY CONSULTANT [address] [place] [address] 01/18/2025 9:00 AM ACCOUNT EXECUTIVE AGRIBUSINESS Clinical Support [facility] Weight Management Services [address] [place] [address] 01/18/2025 9:30 AM ACCOUNT EXECUTIVE AGRIBUSINESS Office Visit [facility] Health Weight Management Services [address] [place] [address] Anusha Campa ELECTROENCEPHALOGRAPH TECHNICIAN-PRODUCT/INDUSTRY CONSULTANT [address] [place] [address] Scheduled Procedures Name Priority Associated Diagnoses Date/Ti me ESOPHAGOGASTRODUODENOSCOPY ( EGD) BIOPSY Status post bariatric surgery 04/25/2024 9:44 AM CDT documented as of this encounter Procedures Procedure Name Priority Date/Time Associated Diagnosis Comments VITAMIN B1 Routine 05/12/2023 S/P laparoscopic sleeve gastrectomy Thyroid 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 abnormal Intestinal malabsorption, unspecified type (HCC) documented in this encounter Results * VITAMIN B1 (05/12/2023) Blood BLOOD SPECIMEN / Unknown 05/12/2023 Shanel Ware APRN-PRODUCT/INDUSTRY CONSULTANT LAB - [facility] ORDERABLES OTHER LAB documented in this encounter Visit Diagnoses Diagnosis S/P laparoscopic sleeve gastrectomy Thyroid 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 abnormal Nonspecific abnormal results of thyroid function study Intestinal malabsorption, unspecified type (HCC) Status post bariatric surgery Bariatric surgery status documented in this encounter Care Teams Production Material Coordinator Relationship Specialty Start Date End Date Betty Rodriguez MD [address] [place] [address] PCP - General Internal Medicine 09/02/22 documented as of this encounter
--- OUTSIDE RECORDS SUMMARY | 2024-02-06 01:11 | XMS_ITS | Encounter Summary ---
Author Organization [facility] Address [address] [place] [address] Care Team Providers Care Geoscientist Name Role Phone Betty Rodriguez MD Primary Care Provider [phone] Encounter Details Date Type Department Care Team (Latest Contact Info) Description 07/20/2023 9:30 AM CDT Clinical Support [facility] Weight Management Services [address] [place] [address] S/P laparoscopic sleeve gastrectomy Social History Tobacco [...] - Inhaled Oxygen Concentration - - Weight 97.2 kg (214 lb 4.8 oz) 07/20/2023 9:00 A M CDT Height 182.9 cm (6' 0.01 ) 07/20/2023 9:00 AM CD T Body Mass Index 29.06 07/20/2023 9:00 AM CDT documented in this encounter Functional [...] of this encounter Progress Notes * Rosalba Lewis RD/HUY - 07/20/2023 9:30 AM CDT MEDICAL NUTRITION THERAPY Weight Management Services Bariatric Surgery Follow-Up Session Number: (6 months s/p VSG) Session Date: 07/20/23 Patient: Jayesh Anderson Date of : 1955 (68 year old) PCP Physician: Betty Rodriguez MD Referring Physician: Zoe NUTRITION ASSESSMENT Primary Diagnoses/Co-morbidities: (overweight, s/p VSG) Secondary Diagnoses/Co-morbidities: Hypertension (GERD, SA) Have you seen a dietitian?: Yes Pertinent Labs: reviewed- folic acid >20, ferritin >1000 Pertinent Medications: reviewed Current V/M Supplements: BA chewy MV BID- recommended daily, BA calcium chews TID- recommended BID Eating History Are you following a special diet at home?: Weight Reduction Are you having trouble following your diet?: Yes Are you having any trouble eating?: No Are you avoiding salty food, and not adding salt to your food?: No Are you limiting your liquids?: No How much liquids per day do you drink?: 64+ oz Usual Number of Times You Eat Out Per Week : 0 Who prepares the meals?: Self Exercise Type of exercise?: Walking Weight History Height: 182.9 cm (6' 0.01 ) Initial Program Weight: 368.8# BMI 50.01 Current Weight: 97.2 kg (214 lb 4.8 oz) Weight Method : Standing scale BMI (Calculated): 29.06 Has your weight changed since last visit?: Loss # (25.8#) Total Program Weight Loss: 154.5# Pt seen for nutrition f/u. Pt is 6 months s/p VSG by Dr. Enriquez . Pt's weight is down 25.8# sincelast visit, down 154.5# since beginning program. Pt reports drinking 1-2 Premier protein shakes/dayand Gatorade Zero with protein 3-4x/week. Pt reports tolerating phase 4 foods well and stopping when full. Pt reports rarely going out to eat, but if he does, will get grilled shrimp and asparagus. Pt reports no issues drinking 64+ oz water as long as it's flavored. Pt still drinking coffee but hasreduced to 1/2 pot/day. Pt reports no structured exercise but stays active doing landscaping or other activities. Reviewed food recall and vitamins. 24 Hour Food Recall (Current) Breakfast - grapefruit, protein shake Lunch - 3 oz pickled pieces pettit, banana, 3/4 c cottage cheese Dinner - 1 slice pizza, 1/2 c baked beans, brat with mustard (no bun) Snacks - 3 cuties, 4-5 SF popsicles Beverages - 1/2 pot coffee, 64+ oz Propel & water with SF flavors NUTRITION DIAGNOSIS Diagnosis: Overweight/obesity Related to: (hx excessive kcal intake) As evidenced by: BMI 29.06. NUTRITION INTERVENTION Interventions: Motivational interviewing;Goal setting;Self-monitoring;Problem solving;Recommended [...] Pt v/u and agreeable to f/u at 1 year post op. External Barriers to Change: excessive caffeine, eating with protein shakes, excessive sugar intake- fruit NUTRITION MONITORING/EVALUATION Nutrient Needs: Goals: Nutrition Goal #1: <16 oz caffeine daily Nutrition Goal #2: <15 g sugar daily Nutrition Goal #3: 64+ oz fluids daily Monitor/Evaluation: Monitoring and evaluation: Fluid/beverage intake;Food intake;Protein intake;Carbohydrate intake;Mineral/element intake;Food and nutrition knowledge/skills;Beliefs and attitudes;Adherence;Physical activity;Weight change;Body Mass index RD contact information provided. Pt encouraged to call RD with questions and/or concerns. Evaluation of Overall Compliance Potential: Comprehension: Often Demonstrated Receptivity: Sometimes Demonstrated Adherence: Sometimes Demonstrated Session Information Session Date: 07/20/23 Session beginning time: 930 Session ending time: 942 Session total minutes: 12 Minutes Teaching Method: Explanation;Demonstration;Teach Back Next visit: (1 year post op) Total MNT minutes this calendar year: Nutritional Review Cleared, additional RD visits required pre-op ___ Cleared, no additional RD visits required pre-op ___ Not cleared, additional RD visit(s) required pre-op ___ Continue with post op RD visits per protocol _X__ Rosalba Lewis RD/LDN documented in this encounter Plan of Treatment Upcoming Encounters Date Type Department Care Team (Latest Contact Info) Description 04/25/2024 9:44 AM CDT Hospital Encounter [facility] - [address] [place] [address] Eliana Enriquez MD [address] [place] [address] Surgery General 04/25/2024 9:44 AM CDT - 04/25/2024 10:10 AM CDT Surgery [facility] - [address] [place] [address] Eliana Enriquez MD [address] [place] [address] ESOPHAGOGASTRODUODENOSCOPY WITH BIOPSY 05/03/2024 9:30 AM CDT Office Visit [facility] Weight Management Services [address] [place] [address] Eliana Enriquez MD [address] [place] [address] 07/19/2024 9:00 AM CDT Office Visit [facility] Weight Management Services [address] [place] [address] Anusha Campa, PRESIDENT AND CHIEF COMMERCIAL OFFICER-CONTACT CENTER ASSOCIATE [address] [place] [address] 01/18/2025 9:00 AM DRYWALL HANGER Clinical Support [facility] Weight Management Services [address] [place] [address] 01/18/2025 9:30 AM DRYWALL HANGER Office Visit [facility] Weight Management Services [address] [place] [address] Anusha Campa, PRESIDENT AND CHIEF COMMERCIAL OFFICER-CONTACT CENTER ASSOCIATE [address] [place] [address] Scheduled Procedures Name Priority Associated Diagnoses Date/Ti me ESOPHAGOGASTRODUODENOSCOPY ( EGD) BIOPSY Status post bariatric surgery 04/25/2024 9:44 AM CDT documented as of this encounter Visit Diagnoses Diagnosis S/P laparoscopic sleeve gastrectomy- Primary Status post bariatric surgery Bariatric surgery status documented in this encounter Care Teams Geoscientist Relationship Specialty Start Date End Date Betty Rodriguez MD [address] [place] [address] PCP - General Internal Medicine 09/02/22 documented as of this encounter
--- OUTSIDE RECORDS SUMMARY | 2024-02-06 01:11 | XMS_ITS | Encounter Summary ---
Author Organization [facility] Address [address] [facility] [place] [address] Care Team Providers Care Gamma Facilities Operator Name Role Phone Betty Rodriguez MD Primary Care Provider [phone] Reason for Visit * Reason Comments Refill Request Encounter Details Date Type Department Care Team (Late st Contact Info) Description 02/08/2023 Refill [facility] Weight Management Services [address] [place] [address] Eliana Enriquez MD [address] [place] [address] Refill Request Social History Tobacco Use Types [...] No 01/17/2023 documented as of this encounter Miscellaneous Notes * Telephone Encounter - Zaida Duran LPN - 02/09/2023 9:06 AM SALESPERSON HANDBAGS Called pt to discuss refill request for omeprazole BID. Pt voices his bottle says to take 1 capsuleby mouth twice daily- before breakfast and at supper. Pt was prescribed omeprazole BID on 10/2022. Pt to discontinue BID and take omeprazole daily before breakfast. New script sent to pharmacy on 01/10/2023 since he had sleeve gastrectomy on 01/17/2023 . Pt voices he had 1 refill left on bottle with omeprazole BID he is picking up at pharmacy today. I voiced again to take daily and if any issues with pharmacy to call our office. Pt v/u. SPERSON HANDBAGS documented in this encounter Plan of Treatment Upcoming Encounters Date Type Department Care Team (Latest Contact Info) Description 04/25/2024 9:44 AM CDT Hospital Encounter [facility] - [address] [place] [address] Eliana Enriquez MD [address] [place] [address] Surgery General 04/25/2024 9:44 AM CDT - 04/25/2024 10:10 AM CDT Surgery [facility] - [address] [place] [address] Eliana Enriquez MD [address] [place] [address] ESOPHAGOGASTRODUODENOSCOPY WITH BIOPSY 05/03/2024 9:30 AM CDT Office Visit [facility] Health Weight Management Services [address] [place] [address] Eliana Enriquez MD [address] [place] [address] 07/19/2024 9:00 AM CDT Office Visit [facility] Health Weight Management Services [address] [place] [address] Anusha Campa, AIR ROUTE TRAFFIC CONTROLLER-COTTON BREEDER [address] [place] [address] 01/18/2025 9:00 AM SALESPERSON HANDBAGS Clinical Support [facility] Health Weight Management Services [address] [place] [address] 01/18/2025 9:30 AM SALESPERSON HANDBAGS Office Visit [facility] Health Weight Management Services [address] [place] [address] Anusha Campa, AIR ROUTE TRAFFIC CONTROLLER-COTTON BREEDER [address] [place] [address] Scheduled Procedures Name Priority Associated Diagnoses Date/Ti me ESOPHAGOGASTRODUODENOSCOPY ( EGD) BIOPSY Status post bariatric surgery 04/25/2024 9:44 AM CDT documented as of this encounter Visit Diagnoses Diagnosis Bariatric surgery status Status post bariatric surgery Bariatric surgery status documented in this encounter Care Teams Gamma Facilities Operator Relationship Specialty Start Date End Date Betty Rodriguez MD [address] [place] [address] PCP - General Internal Medicine 09/02/22 documented as of this encounter
--- OUTSIDE RECORDS SUMMARY | 2024-02-06 01:11 | XMS_ITS | Encounter Summary ---
Author Organization [facility] Address [address] [place] [address] Care Team Providers Care Registered Radiographer Name Role Phone Betty Rodriguez MD Primary Care Provider [phone] Encounter Details Date Type Department Care Team (Late st Contact Info) Description 05/13/2023 Orders Only [facility] Weight Management Services [address] [place] [address] Shanel Ware, MAP PLOTTER-METAL MINER BLASTING [address] [place] [phone] S/P laparoscopic sleeve gastrectomy; Thyroid 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 [...] of this encounter Progress Notes * Shanel Ware APRN-CNP - 05/13/2023 3:30 PM CDT Can we make sure his PCP received these labs. documented in this encounter Plan of Treatment Upcoming Encounters Date Type Department Care Team (Latest Contact Info) Description 04/25/2024 9:44 AM CDT Hospital Encounter [facility] - [address] [place] [address] Eliana Enriquez MD [address] [place] [phone] Surgery General 04/25/2024 9:44 AM CDT - 04/25/2024 10:10 AM CDT Surgery [facility] - [address] [address] [place] [address] Eliana Enriquez MD [facility] [place] [phone] ESOPHAGOGASTRODUODENOSCOPY WITH BIOPSY 05/03/2024 9:30 AM CDT Office Visit [facility] Management Services [address] [place] [phone] Eliana Enriquez MD [address] [place] [phone] 07/19/2024 9:00 AM CDT Office Visit [facility] Weight Management Services [address] [place] [phone] Anusha Campa, MAP PLOTTER-METAL MINER BLASTING [address] [place] [address] 01/18/2025 9:00 AM BLASTING MINER Clinical Support [facility] Weight Management Services [address] [place] [phone] 01/18/2025 9:30 AM BLASTING MINER Office Visit [facility] Management Services [address] [place] [phone] Anusha Campa, MAP PLOTTER-METAL MINER BLASTING [address] [place] [address] Scheduled Procedures Name Priority Associated Diagnoses Date/Ti me ESOPHAGOGASTRODUODENOSCOPY ( EGD) BIOPSY Status post bariatric surgery 04/25/2024 9:44 AM CDT documented as of this encounter Procedures Procedure Name Priority Date/Time Associated Diagnosis Comments CBC W AUTO DIFFERENTIAL Routine 05/12/2023 S/P laparoscopic sleeve gastrectomy Thyroid 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 abnormal Intestinal malabsorption, unspecified type (HCC) COMPREHENSIVE METABOLIC PANEL Routine 05/12/2023 S/P laparoscopic sleeve gastrectomy Thyroid 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 abnormal Intestinal malabsorption, unspecified type (HCC) PHOSPHORUS BLOOD Routine 05/12/2023 S/P laparoscopic sleeve gastrectomy Thyroid 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 abnormal Intestinal malabsorption, unspecified type (HCC) MAGNESIUM BLOOD Routine 05/12/2023 S/P laparoscopic sleeve gastrectomy Thyroid 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 abnormal Intestinal malabsorption, unspecified type (HCC) VITAMIN B12 FOLATE PANEL Routine 05/12/2023 S/P laparoscopic sleeve gastrectomy Thyroid 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 abnormal Intestinal malabsorption, unspecified type (HCC) TSH Routine 05/12/2023 S/P laparoscopic sleeve gastrectomy Thyroid 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 abnormal Intestinal malabsorption, unspecified type (HCC) IRON + TRANSFERRIN PANEL Routine 05/12/2023 S/P laparoscopic sleeve gastrectomy Thyroid 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 abnormal Intestinal malabsorption, unspecified type (HCC) FERRITIN Routine 05/12/2023 S/P laparoscopic sleeve gastrectomy Thyroid 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 abnormal Intestinal malabsorption, unspecified type (HCC) LIPID PROFILE Routine 05/12/2023 S/P laparoscopic sleeve gastrectomy Thyroid 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 abnormal Intestinal malabsorption, unspecified type (HCC) documented in this encounter Results * COMPREHENSIVE METABOLIC PANEL (05/12/2023) Blood BLOOD SPECIMEN / Unknown 05/12/2023 Shanel Ware APRN-METAL MINER BLASTING LAB - [place] ORDERABLES Performing Organization Address [facility] Co de Phone Number OTHER LAB * TSH (05/12/2023) Blood BLOOD SPECIMEN / Unknown 05/12/2023 Shanel Ware APRN-METAL MINER BLASTING LAB - [place] ORDER[facility] Performing Organization Address [facility] Co de Phone Number OTHER LAB * PHOSPHORUS BLOOD (05/12/2023) Blood BLOOD SPECIMEN / Unknown 05/12/2023 Shanel Ware MAP PLOTTER-METAL MINER BLASTING LAB - [place] ORDER[facility] OTHER LAB * IRON + TRANSFERRIN PANEL (05/12/2023) Blood BLOOD SPECIMEN / Unknown 05/12/2023 Shanel Ware APRN-METAL MINER BLASTING LAB - [place] ORDER[facility] OTHER LAB * VITAMIN B12 FOLATE PANEL (05/12/2023) Blood BLOOD SPECIMEN / Unknown 05/12/2023 Shanel Ware MAP PLOTTER-METAL MINER BLASTING LAB - [place] ORDER[facility]LES Performing Organization Address [facility] Co de Phone Number OTHER LAB * FERRITIN (05/12/2023) Blood BLOOD SPECIMEN / Unknown 05/12/2023 Shanel Ware MAP PLOTTER-METAL MINER BLASTING LAB - [place] ORDER[facility]LES Performing Organization Address [facility] Co de Phone Number OTHER LAB * LIPID PROFILE (05/12/2023) Blood BLOOD SPECIMEN / Unknown 05/12/2023 Shanel Ware APRN-METAL MINER BLASTING LAB - [place] ORDER[facility]LES Performing Organization Address [facility] Co de Phone Number OTHER LAB * MAGNESIUM BLOOD (05/12/2023) Blood BLOOD SPECIMEN / Unknown 05/12/2023 Shanel Ware APRN-METAL MINER BLASTING LAB - [place] ORDER[facility]LES Performing Organization Address [facility] Co de Phone Number OTHER LAB * CBC WITH DIFFERENTIAL (05/12/2023) Blood BLOOD SPECIMEN / Unknown 05/12/2023 Shanel Ware APRN-METAL MINER BLASTING LAB - [facility] ORDERABLES Performing Organization Address [facility] Co de Phone Number OTHER LAB documented in this encounter Visit Diagnoses Diagnosis S/P laparoscopic sleeve gastrectomy Thyroid 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 abnormal Nonspecific abnormal results of thyroid function study Intestinal malabsorption, unspecified type (HCC) Status post bariatric surgery Bariatric surgery status documented in this encounter Care Teams Registered Radiographer Relationship Specialty Start Date End Date Betty Rodriguez MD [address] [place] [phone] PCP - General Internal Medicine 09/02/22 documented as of this encounter
--- OUTSIDE RECORDS SUMMARY | 2024-02-06 01:11 | XMS_ITS | Encounter Summary ---
Author Organization [facility] Address [address] [address] Care Team Providers Care Forging Die Finisher Name Role Phone Betty Rodriguez MD Primary Care Provider Encounter Details Date Type Department Care Team (Late st Contact Info) Description 05/18/2023 Orders Only [facility] Weight Management Services [address] [place] [address] Shanel Ware, FINANCE CONSULTANT-ETHNIC STUDIES PROFESSOR [address] [place] [phone] S/P laparoscopic sleeve gastrectomy; Thyroid 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 [...] Description 04/25/2024 9:44 AM CDT Hospital Encounter [facility] [address] [place] [address] Eliana Enriquez MD [address] [place] [phone] Surgery General 04/25/2024 9:44 AM CDT - 04/25/2024 10:10 AM CDT Surgery [facility] - [facility] [address] [place] [address] Eliana Enriquez MD [address] [place] [phone] ESOPHAGOGASTRODUODENOSCOPY WITH BIOPSY 05/03/2024 9:30 AM CDT Office Visit [facility] Weight Management Services [facility] [place] [phone] Eliana Enriquez MD [address] [place] [phone] 07/19/2024 9:00 AM CDT Office Visit [facility] Management Services [address] [place] [address] Anusha Campa, FINANCE CONSULTANT-ETHNIC STUDIES PROFESSOR [address] [place] [address] 01/18/2025 9:00 AM WHEEL TRUER Clinical Support [facility] Weight Management Services [address] [place] [phone] 01/18/2025 9:30 AM WHEEL TRUER Office Visit [facility] Weight Management Services [address] [place] [phone] Anusha Campa FINANCE CONSULTANT-ETHNIC STUDIES PROFESSOR [address] [place] [address] Scheduled Procedures Name Priority Associated Diagnoses Date/Ti me ESOPHAGOGASTRODUODENOSCOPY ( EGD) BIOPSY Status post bariatric surgery 04/25/2024 9:44 AM CDT documented as of this encounter Procedures Procedure Name Priority Date/Time Associated Diagnosis Comments PTH INTACT+CALCIUM Routine 05/12/2023 S/P laparoscopic sleeve gastrectomy Thyroid 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 abnormal Intestinal malabsorption, unspecified type (HCC) documented in this encounter Results * PTH INTACT+CALCIUM (05/12/2023) Blood BLOOD SPECIMEN / Unknown 05/12/2023 Shanel Ware APRN-ETHNIC STUDIES PROFESSOR LAB - [place] ORDERABLES OTHER LAB documented in this encounter Visit Diagnoses Diagnosis S/P laparoscopic sleeve gastrectomy Thyroid 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 abnormal Nonspecific abnormal results of thyroid function study Intestinal malabsorption, unspecified type (HCC) Status post bariatric surgery Bariatric surgery status documented in this encounter Care Teams Forging Die Finisher Relationship Specialty Start Date End Date Betty Rodriguez MD [address] [place] [address] PCP - General Internal Medicine 09/02/22 documented as of this encounter
--- OUTSIDE RECORDS SUMMARY | 2024-02-06 01:11 | XMS_ITS | Encounter Summary ---
Author Organization [facility] Address [address] [place] [address] Care Team Providers Care Line Construction Supervisor Name Role Phone Betty Rodriguez MD Primary Care Provider [phone] Reason for Visit * Reason Comments Refill Request Encounter Details Date Type Department Care Team (Late st Contact Info) Description 03/13/2023 Refill [facility] Weight Management Services [address] [place] [phone] Anusha Campa, TRAIN CLERK-BOX COVERING MACHINE OPERATOR [address] [place] [address] Refill Request Social History Tobacco Use Types [...] Telephone Encounter - Zaida Duran LPN - 03/14/2023 8:47 AM REFRIGERATION TECH Called pt to discuss refill request for Acitgall. Pt voices he needs 1 month supply. He has confirmed taking for past 2 months. I voiced he should have refill on file. Will call pharmacy. Called pts pharmacy and spoke with staff. He voices med was refilled yesterday. Will refuse med refill at this time. IGERATION TECH documented in this encounter Plan of Treatment Upcoming Encounters Date Type Department Care Team (Latest Contact Info) Description 04/25/2024 9:44 AM CDT Hospital Encounter [facility] - [address] [place] [address] Eliana Enriquez MD [address] [place] [phone] Surgery General 04/25/2024 9:44 AM CDT - 04/25/2024 10:10 AM CDT Surgery [facility] - [address] [address] [place] [address] Eliana Enriquez MD [address] [place] [phone] ESOPHAGOGASTRODUODENOSCOPY WITH BIOPSY 05/03/2024 9:30 AM CDT Office Visit [facility] Weight Management Services [address] [place] [phone] Eliana Enriquez MD [address] [place] [phone] 07/19/2024 9:00 AM CDT Office Visit [facility] Weight Management Services [address] [place] [address] Anusha Campa, TRAIN CLERK-BOX COVERING MACHINE OPERATOR [address] [place] [address] 01/18/2025 9:00 AM REFRIGERATION TECH Clinical Support [facility] Weight Management Services [address] [place] [phone] 01/18/2025 9:30 AM REFRIGERATION TECH Office Visit [facility] Weight Management Services [address] [place] [phone] Anusha Campa, TRAIN CLERK-BOX COVERING MACHINE OPERATOR [address] [place] [address] Scheduled Procedures Name Priority Associated Diagnoses Date/Ti me ESOPHAGOGASTRODUODENOSCOPY ( EGD) BIOPSY Status post bariatric surgery 04/25/2024 9:44 AM CDT documented as of this encounter Visit Diagnoses Diagnosis Bariatric surgery status Status post bariatric surgery Bariatric surgery status documented in this encounter Care Teams Line Construction Supervisor Relationship Specialty Start Date End Date Betty Rodriguez MD [address] [place] [address] PCP - General Internal Medicine 09/02/22 documented as of this encounter
--- OUTSIDE RECORDS SUMMARY | 2024-02-06 01:11 | XMS_ITS | Encounter Summary ---
Author Organization [facility] Address [address] [place] [address] Care Team Providers Care Finance Associate Name Role Phone Betty Rodriguez MD Primary Care Provider [phone] Reason for Visit * Reason Comments Bariatric Surgery Follow-up 6 month post op Encounter Details Date Type Department Care Team (Late st Contact Info) Description 07/20/2023 10:00 AM CDT Office Visit [facility] Weight Management Services [address] [place] [phone] Shanel Ware, INVESTIGATIONS CHIEF-GIS ENGINEER [address] [place] [address] S/P laparoscopic sleeve gastrectomy (Primary Dx); Thyroid 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 abnormal Social History Tobacco [...] Sign Reading Time Taken Comments Blood Pressure 120/78 07/20/2023 9:52 AM CDT Pulse 66 07/20/2023 9:52 AM CDT Temperature 36.2 ??C (97.1 ??F) 07/20/2023 9:52 AM CD T Respiratory Rate 18 07/20/2023 9:52 AM CDT Oxygen Saturation 100% 07/20/2023 9:52 AM CDT Inhaled Oxygen Concentration - - Weight 97.2 kg (214 lb 4.8 oz) 07/20/2023 9:52 A M CDT Height 182.9 cm (6') 07/20/2023 9:52 AM CDT Body Mass Index 29.06 07/20/2023 9:52 AM CDT documented in this encounter Functional [...] this encounter Progress Notes * Shanel Ware, MOHINI-GIS ENGINEER - 07/20/2023 9:54 AM CDT [facility] [place] [address] . . Date of encounter: No admission date for patient encounter. Pt Name: Jayesh Anderson : 1955 AGE: [age] year old SEX: male CSN: [id number] Visit type: Bariatric Post Operative visit Patients Primary care provider is : Betty Rodriguez MD Subjective: Jayesh Anderson presents to the clinic 6 months following sleeve gastrectomy. he was seen in clinic last on 05/11/23. Patient is taking 30-60 grams of proteins supplements daily. Patient is attending support group meeting. The patient has been participating in an online supportgroup. Patient is taking 64+ oz of fluid per day. Doing 0 minutes of exercise daily. Patient is taking Bariatric multivitamins. Patient is not having Reflux, Vomiting, Dysphagia, Abdominal Pain, and Cough, The patient is not having [...] lb BSTOP Questions - 01/27/2023 1 wk Post-OpHow many doses of opioid pain medication did [...] Total Wt Loss in lb: 154.5 lb Obesity History Years of being overweight? 40yrs Age of first weight loss attempt? 18 Highest weight as an adult? 320 Goal Weight? 200 BMI: Body mass index is 29.06 kg/m??. Past Medical History: Diagnosis Date GERD [...] Never Smokeless tobacco: Never Vaping Use Vaping Use: Never used Substance and Sexual Activity Alcohol use: Not Currently Comment: 2-3x weekly Drug use: Never Sexual activity: Not on [...] Cancer Mother Diabetes; unknown type Mother Medications: No outpatient medications have been marked as taking for the 07/20/23 encounter (Office Visit) with Shanel Ware APRN-CNP. (Not in a hospital admission) Allergy: No Known Allergies ROS: A comprehensive review of systems was negative except as described in HPI. Objective: BP 120/78 Pulse 66 Temp 97.1 ??F (36.2 ??C) (Temporal) Resp 18 Ht 1.829 m (6') Wt 97.2 kg(214 lb 4.8 oz) SpO2 100% Weight: 97.2 kg (214 lb 4.8 oz) Height: 182.9 cm (6') Body mass index is 29.06 kg/m??. Jayesh had a score of 0 [...] palpable visceromegaly. No palpable ventral hernias. Skin: Jaars and moist. No ulcers, rashes, or lesions. Extremities: Well perfused. No gross joint deformity noted Neurological: Cranial nerves 2-12 were grossly intact. Psychiatric: The patient's mood and affect appeared to be appropriate Labs Recent Labs Component Name 01/18/23 0548 01/17/23 1130 WBC 11.8* 7.3 RBC 3.59* 3.91* HGB 12.7* 13.4* HCT 36.9* 39.7* PLTCOUNT 224 197 Recent Labs Component Name 01/18/2348 01/17/23 1130 SODIUM 142 143 POTASSIUM 4.3 4.1 CO2 24 21* BUN 15.6 12.3 CREATININE 0.67* 0.62* Recent Labs Component Name 01/18/2348 01/17/23 1130 GLUCOSE 124 100 Recent Labs Component Name 01/18/23 0548 01/17/23 1130 AST 32 42* ALT 38 48 Recent Labs Component Name 01/18/23547 HDL 51 TRIG 86 TSH 1.9327 Recent Labs Component Name 01/18/23547 HGBA1C 5.1 Recent Labs Component Name 01/18/2348 TSH 1.9327 Recent Labs Component Name 01/18/2348 TSH 1.9327 No results for input(s): IRON in the last 22045 hours. No results for input(s): [id number] in the last 39017 hours. No results for input(s): VITAMINA in the last 03484 hours. No results for input(s): IRON in the last 10557 hours. No results for input(s): VITK1 in the last 15491 hours. No results for input(s): [id number] in the last 08403 hours. No results for input(s): ALPHATOCOPH in the last 63726 hours. No results for input(s): GAMMATOCOPH in the last 23058 hours. No results for input(s): MAGMGDL in the last 83369 hours. Recent Labs Component Name 01/18/2348 PHOS [...] above. Total weight loss since starting the program: 154.5 pounds Current BMI Body mass index is 29.06 kg/m??. with weight of Weight: 97.2 kg (214 lb 4.8 oz) . Patient is losing weight. Patient is controlling Carbs and Sugar well. Controlling portions well. BMI of 29.06 S/P Bariatric Surgery : s/p: Sleeve Gastrectomy . Date of surgery 01/17/23. @ [facility], by Dr. Enriquez. Doing well postoperative. May [...] underwent repeat EGD 12/13/22 which was normal. History of Hypertension Patient was recently taken off of lisinopril/ hydrochlorothiazide. Blood pressure in the office today 120/78. Sleep apnea Patient had a sleep study which showed sleep apnea. Weight loss could help with resolving this condition as well. Patient was encouraged to utilize CPAP/ BiPAP as pre recommended settings. He continues to use CPAP. History of Hypercholesterolemia Patient recently taken off of Lipitor 40 mg for this. Cholesterol 202 05/12/23. Will recheck lipid panel with 6 month post op labs. Colon cancer screening He denies family history of colon cancer. He underwent colonoscopy by Dr. Enrqiuez 11/12/22. Findings: several benign-appearing colon polyps removed, sigmoid colon diverticulosis Pathology: Ascending polyp, polypectomy/adenoma. Sigmoid polyps: Polypoid colonic mucosa with a mild lamina propria chronic inflammation. Recommended repeat colonoscopy in 3 years 10/2025. Abnormal Thyroid On initial lab testing TSH was abnormal 4.05. TSH normal 01/18/23. Continue follow up with PCP. [place] with 6 month post op labs. History of Vitamin D deficiency He had low vitamin D on initial testing. He completed supplementation per protocol. Repeat vit D 01/18/23 was normal at 42.0. Will recheck with 6 month post op labs. Umbilical hernia I discussed with the patient his incarcerated umbilical hernia. He is interested in weight loss surgery. Will proceed with weight loss surgery 1st and [...] Labs ordered: Routine Vitamin and Lab check. Orders given to patient. Plan : as above recommendation. Follow up with: Surgeons / PA/ SCARF GLUER : 6 months. Dietitian: as scheduled. He verbalized understanding and is agreeable to this plan after shared decision making with patient. Shanel Ware APRN-GIS ENGINEER CC: Betty Rodriguez MD documented in this encounter Plan of Treatment Upcoming Encounters Date Type Department Care Team (Latest Contact Info) Description 04/25/2024 9:44 AM CDT Hospital Encounter [facility] - [address] [place], [place] [address] Eliana Enriqeuz MD [address] [place] [phone] Surgery General 04/25/2024 9:44 AM CDT - 04/25/2024 10:10 AM CDT Surgery [facility] - [address] [place] [address] Eliana Enriquez MD [address] [place] [phone] ESOPHAGOGASTRODUODENOSCOPY WITH BIOPSY 05/03/2024 9:30 AM CDT Office Visit [facility] Weight Management Services [facility] [place] [phone] Eliana Enriquez MD [facility] [place] [phone] 07/19/2024 9:00 AM CDT Office Visit [facility] Weight Management Services [address] [place] [address] Anusha Campa, INVESTIGATIONS CHIEF-GIS ENGINEER [address] [place] [address] 01/18/2025 9:00 AM SUPERVISOR BREW HOUSE Clinical Support [facility] Weight Management Services [address] [place] [address] 01/18/2025 9:30 AM SUPERVISOR BREW HOUSE Office Visit [facility] Weight Management Services [address] [place] [address] Anusha Campa, INVESTIGATIONS CHIEF-GIS ENGINEER [address] [place] [address] Scheduled Orders Name Type Priority Associated Diagnoses Orde r Schedule VITAMIN B1 Lab Routine S/P laparoscopic sleeve gastrectomy Thyroid 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 abnormal Expected: 09/23/2023 (Approximate), Expires: 07/19/2024 TSH Lab Routine S/P laparoscopic sleeve gastrectomy Thyroid 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 abnormal 1 Occurrences starting 07/20/2023 until 08/18/2024 VITAMIN D 25-HYDROXY Lab Routine S/P laparoscopic sleeve gastrectomy Thyroid 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 abnormal Expected: 09/23/2023 (Approximate), Expires: 07/19/2024 VITAMIN B12 FOLATE PANEL Lab Routine S/P laparoscopic sleeve gastrectomy Thyroid 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 abnormal Expected: 09/23/2023 (Approximate), Expires: 07/19/2024 Scheduled Procedures Name Priority Associated Diagnoses Date/Ti me ESOPHAGOGASTRODUODENOSCOPY ( EGD) BIOPSY Status post bariatric surgery 04/25/2024 9:44 AM CDT documented as of this encounter Results * TSH (07/21/2023) Blood BLOOD SPECIMEN / Unknown 07/21/2023 Shanel M Eriberto-Meskil INVESTIGATIONS CHIEF-GIS ENGINEER LAB - [place] ORDER[facility]LES Performing Organization Address City/[facility]/ZIP Co de Phone Number OTHER LAB * IRON + TRANSFERRIN PANEL (07/21/2023) Blood BLOOD SPECIMEN / Unknown 07/21/2023 Shanel M Jeanie INVESTIGATIONS CHIEF-GIS ENGINEER LAB - [place] [facility] Performing Organization Address City/[facility]/ZIP Co de Phone Number OTHER LAB * PHOSPHORUS BLOOD (07/21/2023) Blood BLOOD SPECIMEN / Unknown 07/21/2023 Shanel Ware INVESTIGATIONS CHIEF-GIS ENGINEER LAB - [place] [facility] Performing Organization Address [facility] Co de Phone Number OTHER LAB * PTH INTACT+CALCIUM (07/21/2023) Blood BLOOD SPECIMEN / Unknown 07/21/2023 Shanel Ware INVESTIGATIONS CHIEF-GIS ENGINEER LAB - [place] [facility] Performing Organization Address City/[facility] Co de Phone Number OTHER LAB * VITAMIN B1 (07/21/2023) Blood BLOOD SPECIMEN / Unknown 07/21/2023 Shanel Ware INVESTIGATIONS CHIEF-GIS ENGINEER LAB - [place] [facility] Performing Organization Address City/[facility] Co de Phone Number OTHER LAB * MAGNESIUM BLOOD (07/21/2023) Blood BLOOD SPECIMEN / Unknown 07/21/2023 Shanel Ware INVESTIGATIONS CHIEF-GIS ENGINEER LAB - [place] [facility] Performing Organization Address City/[facility] Co de Phone Number OTHER LAB * LIPID PROFILE (07/21/2023) Blood BLOOD SPECIMEN / Unknown 07/21/2023 Shanel Ware INVESTIGATIONS CHIEF-GIS ENGINEER LAB - [place] [facility] OTHER LAB * FERRITIN (07/21/2023) Blood BLOOD SPECIMEN / Unknown 07/21/2023 Shanel Herberth Ware INVESTIGATIONS CHIEF-GIS ENGINEER LAB - [place] [facility] OTHER LAB * COMPREHENSIVE METABOLIC PANEL (07/21/2023) Blood BLOOD SPECIMEN / Unknown 07/21/2023 Shanel Ware INVESTIGATIONS CHIEF-GIS ENGINEER LAB - [place] [facility] OTHER LAB * CBC WITH DIFFERENTIAL (07/21/2023) Blood BLOOD SPECIMEN / Unknown 07/21/2023 Shanel Ware APRN-GIS ENGINEER LAB - [facility] ORDERABLES OTHER LAB * VITAMIN B12 FOLATE PANEL (07/21/2023) Blood BLOOD SPECIMEN / Unknown 07/21/2023 Shanel Ware APRN-GIS ENGINEER LAB - [place] ORDER[facility] [address] * VITAMIN D 25-HYDROXY (07/21/2023) Blood BLOOD SPECIMEN / Unknown 07/21/2023 Shanel Ware INVESTIGATIONS CHIEF-GIS ENGINEER LAB - [place] [facility] [address] documented in this encounter Visit Diagnoses Diagnosis S/P laparoscopic sleeve gastrectomy- Primary Thyroid 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 abnormal Nonspecific abnormal results of thyroid function study Status post bariatric surgery Bariatric surgery status documented in this encounter Care Teams Finance Associate Relationship Specialty Start Date End Date Betty Rodriguez MD [address] [place] [address] PCP - General Internal Medicine 09/02/22 documented as of this encounter
--- OUTSIDE RECORDS SUMMARY | 2024-02-06 01:11 | XMS_ITS | Encounter Summary ---
Author Organization [facility] Address [address] [place] [address] Care Team Providers Care Jewelry Racker Name Role Phone Betty Rodriguez MD Primary Care Provider [phone] Reason for Referral * Consultation (Routine) - Closed Specialty Diagnoses / Procedures Referred By Contac t Referred To Contact Nutrition Services Diagnoses S/P laparoscopic sleeve gastrectomy Eliana Enriquez MD [address] [place] [address] [facility] Clinical Nutri [address] [place] [address] Referral ID Status Reason Start Date Expiration Date V isits Requested Visits Authorized [id number] Closed Specialty Services Required 02/18/2023 02/18/2024 4 4 HERIZATION SPECIALIST Encounter Details Date Type Department Care Team (Latest Contact Info) Description 02/18/2023 9:15 AM WEATHERIZATION SPECIALIST Clinical Support [facility] Health Weight Management Services [address] [place] [address] S/P laparoscopic sleeve gastrectomy Social History Tobacco [...] - Inhaled Oxygen Concentration - - Weight 129 kg (284 lb 6.4 oz) 02/18/2023 8:00 AM WEATHERIZATION SPECIALIST Height 182.9 cm (6' 0.01 ) 02/18/2023 8:00 AM CS T Body Mass Index 38.56 02/18/2023 8:00 AM WEATHERIZATION SPECIALIST documented in this encounter Functional Status Functional [...] Progress Notes * Rosalba Lewis RD/HUY - 02/18/2023 9:15 AM CST MEDICAL NUTRITION THERAPY Weight Management Services Bariatric Surgery Follow-Up Session Number: (1 month s/p VSG) Session Date: 02/18/23 Patient: Jayesh Anderson Date of : 1955 (68 year old) PCP Physician: Betty Rodriguez MD Referring Physician: Zoe NUTRITION ASSESSMENT Primary Diagnoses/Co-morbidities: Morbid Obesity Secondary Diagnoses/Co-morbidities: Hypertension (GERD, SA) Have you seen a dietitian?: Yes Pertinent Labs: no new to review Pertinent Medications: reviewed Current V/M Supplements: BA chewy MV BID- pt prefers 2 instead of 1/day, 600 mg calcium citrate BID, occaisonal Men's CS- recommended d/c Eating History Are you following a special [...] meals?: Self Exercise Type of exercise?: Walking How many times do you exercise each week?: (3-4) How many minutes of exercise each time?: (1/4-1/2 mile) Weight History Height: 182.9 cm (6' 0.01 ) Initial Program Weight: 368.8# BMI 50.01 Current Weight: 129 kg (284 lb 6.4 oz) Weight Method : Standing BMI (Calculated): 38.56 Has your weight changed since last visit?: Loss # (12.5#) Total Program Weight Loss: 84.4# Pt seen for nutrition f/u. Pt is 1 month s/p VSG by Dr. Enriquez. Pt's weight is down 12.5# since last visit, down 84.4# since beginning program. Pt reports drinking 2 protein shakes/day and some additional protein water. Pt reports not branching out much with phase 2- mostly tuna and eggs. Pt reports no issues drinking 64+ oz fluids. Pt reports walking 1/4-1/2 mile- not every day d/t hip pain. Reviewed food recall and vitamins. 24 Hour Food Recall Breakfast - protein shake- Premier Lunch - protein shake Dinner - 2.5 oz tuna with mashed boiled egg Snacks - Protein 2O Beverages - 24-32 oz decaf coffee, 32 oz water with SF flavors, 1-2 Gatorade Zero with Protein NUTRITION DIAGNOSIS Diagnosis: Overweight/obesity Related to: (hx excessive kcal intake) As evidenced by: BMI 38.57. NUTRITION INTERVENTION Interventions: Motivational interviewing;Goal setting;Self-monitoring;Problem solving;Recommended modifications;Collaboration with other providers Reviewed healthy balance diet for weight loss using protein shakes. Reviewed the lees bariatric dietprinciples. Further instruction provided for phases of bariatric diet. Reinforced behavior changes for bariatric diet such as no straws and smaller plate. Explained importance of continued bariatric vitamin/mineral and protein supplementation. Pt v/u. Pt is ready to begin phase III. Reviewed phase III foods, portion sizes, max intake of 3/4 c/meal, limit CHOs to <1/4 c/day and reinforced introducing new foods one at a time to assess tolerance. Reinforced importance of 2 protein shakes daily as meals to meet nutrition needs and promote weight loss. Reinforced 64+ oz fluids daily. Reinforced not eating and drinking together. Reinforced importance of MV BID or bariatric MV daily and 500 mg calcium citrate BID at least an hour apart from MV per ASMBS guidelines to prevent nutritional deficiencies. Recommended gradually increasing physical activity to 150+ minutes weekly to promote weight loss and for cardiovascular benefits. Pt v/u. External Barriers to Change: none NUTRITION MONITORING/EVALUATION Nutrient Needs: Goals: Nutrition Goal #1: begin phase 3 Nutrition Goal #2: 80+ g protein daily Nutrition Goal #3: 64+ oz fluids daily Monitor/Evaluation: Monitoring and evaluation: Fluid/beverage intake;Food intake;Protein intake;Carbohydrate intake;Mineral/element intake;Food and nutrition knowledge/skills;Beliefs and attitudes;Adherence;Physical activity;Weight change;Body Mass index RD contact information provided. Pt encouraged to call RD with questions and/or concerns. Evaluation of Overall Compliance Potential: Comprehension: Often Demonstrated Receptivity: Often Demonstrated Adherence: Often Demonstrated Session Information Session Date: 02/18/23 Session Beginning Time: 903 Session ending time: 910 Session total minutes: 7 Minutes Teaching Method: Explanation;Demonstration;Teach Back Next visit: (3 months post op) Total MNT minutes this calendar year: Nutritional Review ?? Cleared, additional RD visits required pre-op ___ ?? Cleared, no additional RD visits required pre-op ___ ?? Not cleared, additional RD visit(s) required pre-op ___ ?? Continue with post op RD visits per protocol _X__ Rosalba Lewis RD/BRITTANYN HERIZATION SPECIALIST documented in this encounter Plan of Treatment Upcoming Encounters Date Type Department Care Team (Latest Contact Info) Description 04/25/2024 9:44 AM CDT Hospital Encounter [facility] - Dena Op [address] [place], [place] [address] Eliana Enriquez MD [address] [place] [address] Surgery General 04/25/2024 9:44 AM CDT - 04/25/2024 10:10 AM CDT Surgery [facility] - Dena Op [address] [place] [address] Eliana Enriquez MD [address] [place] [address] ESOPHAGOGASTRODUODENOSCOPY WITH BIOPSY 05/03/2024 9:30 AM CDT Office Visit [facility] Weight Management Services [address] [place] [address] Eliana Enriquez MD [address] [place] [address] 07/19/2024 9:00 AM CDT Office Visit [facility] Weight Management Services [address] [place] [address] Anusha Campa, WASHING MACHINE LOADER AND PULLER-HEALTH ADVOCATE [address] [place] [address] 01/18/2025 9:00 AM WEATHERIZATION SPECIALIST Clinical Support [facility] Health Weight Management Services [address] [place] [address] 01/18/2025 9:30 AM WEATHERIZATION SPECIALIST Office Visit [facility] Weight Management Services [address] [place] [address] Anusha Campa, WASHING MACHINE LOADER AND PULLER-HEALTH ADVOCATE [address] [place] [address] Scheduled Procedures Name Priority Associated Diagnoses Date/Ti me ESOPHAGOGASTRODUODENOSCOPY ( EGD) BIOPSY Status post bariatric surgery 04/25/2024 9:44 AM CDT Scheduled Referrals Name Type Priority Associated Diagnoses Orde r Schedule MEDICAL NUTRITION THERAPY REFERRAL Outpatient Referral Routine S/P laparoscopic sleeve gastrectomy 4 Occurrences starting 02/18/2023 until 02/19/2024 documented as of this encounter Visit Diagnoses Diagnosis S/P laparoscopic sleeve gastrectomy- Primary Status post bariatric surgery Bariatric surgery status documented in this encounter Care Teams Jewelry Racker Relationship Specialty Start Date End Date Betty Rodriguez MD [address] [place] [phone] PCP - General Internal Medicine 09/02/22 documented as of this encounter
--- OUTSIDE RECORDS SUMMARY | 2024-02-06 01:11 | XMS_ITS | Encounter Summary ---
Author Organization [facility] Address [address] [place] [address] Care Team Providers Care Tosser Name Role Phone Betty Rodriguez MD Primary Care Provider Encounter Details Date Type Department Care Team (Latest Contact Info) Description 05/11/2023 9:30 AM CDT Clinical Support [facility] Weight Management Services [address] [place] [phone] S/P laparoscopic sleeve gastrectomy Social History Tobacco [...] - Inhaled Oxygen Concentration - - Weight 108.9 kg (240 lb 1.6 oz) 05/11/2023 9:00 AM CDT Height 182.9 cm (6' 0.01 ) 05/11/2023 9:00 AM CD T Body Mass Index 32.56 05/11/2023 9:00 AM CDT documented in this encounter [...] Progress Notes * Rosalba Lewis RD/HUY - 05/11/2023 9:30 AM CDT MEDICAL NUTRITION THERAPY Weight Management Services Bariatric Surgery Follow-Up Session Number: (3 months s/p VSG) Session Date: 05/11/23 Patient: Jayesh Anderson Date of : 1955 (68 year old) PCP Physician: Betty Rodriguez MD Referring Physician: Zoe NUTRITION ASSESSMENT Primary Diagnoses/Co-morbidities: Obesity Secondary Diagnoses/Co-morbidities: Hypertension (GERD, SA) Have you seen a dietitian?: Yes Pertinent Labs: no new to review Pertinent Medications: reviewed Current V/M Supplements: BA chewy MV BID- pt??prefers 2 instead of 1/day, BA calcium chews TID- recommended BID Eating [...] many times do you exercise each week?: 5 How many minutes of exercise each time?: (20-30) Weight History Height: 182.9 cm (6' 0.01 ) Initial Program Weight: 368.8# ?BMI 50.01 Current Weight: 108.9 kg (240 lb 1.6 oz) Weight Method : Standing scale BMI (Calculated): 32.56 Has your weight changed since last visit?: Loss # (44.3#) Total Program Weight Loss: 128.7# Pt seen for nutrition f/u. Pt is 3 months s/p VSG by Dr. Enriquez. Pt's weight is down 44.3# since last visit, down 128.7# since beginning program. Pt reports drinking 2 protein shakes/day and often some protein water as well. Pt reports water is rarely plain- either has flavors or protein. Pt admits to drinking a pot of coffee daily plus some sharon with caffeine. Pt reports no food intolerances. Pt reports walking 20-30 min (1/2 mile) 5x/week for exercise. Reviewed food recall and vitamins. 24 Hour Food Recall Breakfast - protein shake, Just Crack an Egg Lunch - Premier protein shake, 4-5 pieces pickled pettit Dinner - 2 slices pepperoni pizza- frz Snacks - 1-2 cuties, 6-7 grapes Beverages - 64 oz water with sharon/other SF flavors, 1 pot coffee NUTRITION DIAGNOSIS Diagnosis: Overweight/obesity Related to: (hx excessive kcal intake) As evidenced by: BMI 32.56. NUTRITION INTERVENTION Interventions: Motivational interviewing;Goal setting;Self-monitoring;Problem solving;Recommended [...] v/u. Pt is ready to begin phase IV. Reviewed phase IV foods, portion sizes, max intake of 1 c/meal, limit CHOs to <1/2 c/day and reinforced introducing new foods one at a time to assess tolerance. Reinforced importance of 1-2 protein shakes daily as meals to meet nutrition needs and promote weight loss. Reinforced not eating and drinking together. Reinforced importance of MV BID or bariatric MV daily and 500 mg calcium citrate BID at least an hour apart from MV per ASMBS guidelines to prevent nutritional deficiencies. Reinforced physical activity of 150+ minutes weekly to promote weight loss and for cardiovascular benefits. Pt v/u. External Barriers to Change: excessive caffeine, eating with protein shakes, counting protein watertowards fluids NUTRITION MONITORING/EVALUATION Nutrient Needs: Goals: Nutrition Goal #1: begin phase 4 Nutrition Goal #2: <16 oz caffeine daily Nutrition Goal #3: 80+ g protein daily Monitor/Evaluation: Monitoring and evaluation: Fluid/beverage intake;Food intake;Protein intake;Carbohydrate intake;Mineral/element intake;Food and nutrition knowledge/skills;Beliefs and attitudes;Adherence;Physical activity;Weight change;Body Mass index RD contact information provided. Pt encouraged to call RD with questions and/or concerns. Evaluation of Overall Compliance Potential: Comprehension: Often Demonstrated Receptivity: Sometimes Demonstrated Adherence: Sometimes Demonstrated Session Information Session Date: 05/11/23 Session beginning time: 915 Session ending time: 923 Session total minutes: 8 Minutes Teaching Method: Explanation;Demonstration;Teach Back Next visit: (6 months post op) Total MNT minutes this [...] Description 04/25/2024 9:44 AM CDT Hospital Encounter [facility] [address] [place] [address] Eliana Enriquez MD [address] [place] [address] Surgery General 04/25/2024 9:44 AM CDT - 04/25/2024 10:10 AM CDT Surgery [facility] - [facility] Op [address] [place] [address] Eliana Enriquez MD [address] [place] [address] ESOPHAGOGASTRODUODENOSCOPY WITH BIOPSY 05/03/2024 9:30 AM CDT Office Visit [facility] Health Weight Management Services [address] [place] [address] Eliana Enriquez MD [address] [place] [address] 07/19/2024 9:00 AM CDT Office Visit [facility] Health Weight Management Services [address] [place] [address] Anusha Campa, THERAPY DIRECTOR-PROTECTION AGENT [address] [place] [address] 01/18/2025 9:00 AM RESTORATIVE REHAB AIDE Clinical Support [facility] Health Weight Management Services [address] [place] [address] 01/18/2025 9:30 AM RESTORATIVE REHAB AIDE Office Visit [facility] Health Weight Management Services [address] [place] [address] Anusha Campa, THERAPY DIRECTOR-PROTECTION AGENT [address] [place] [address] Scheduled Procedures Name Priority Associated Diagnoses Date/Ti me ESOPHAGOGASTRODUODENOSCOPY ( EGD) BIOPSY Status post bariatric surgery 04/25/2024 9:44 AM CDT documented as of this encounter Visit Diagnoses Diagnosis S/P laparoscopic sleeve gastrectomy- Primary Status post bariatric surgery Bariatric surgery status documented in this encounter Care Teams Tosser Relationship Specialty Start Date End Date Betty Rodriguez MD [address] [place] [address] PCP - General Internal Medicine 09/02/22 documented as of this encounter
--- OUTSIDE RECORDS SUMMARY | 2024-02-06 01:11 | XMS_ITS | Encounter Summary ---
Author Organization [facility] Address [address] [place] [address] Care Team Providers Care Senior Security Analyst Name Role Phone Betty Rodriguez MD Primary Care Provider [phone] Reason for Visit * Reason Onset Date Comments LABS ONLY 05/13/2023 Encounter Details Date Type Department Care Team (Late st Contact Info) Description 05/13/2023 Telephone [facility] Weight Management Services [address] [place] [phone] Becherer, Rosalba, RD/LDN LABS ONLY Social History Tobacco Use Types Packs/Day Years [...] encounter Miscellaneous Notes * Telephone Encounter - Rosalba Lewis RD/LDN - 05/13/2023 2:18 PM CDT PC to pt regarding lab results. Recommended pt f/u with PCP d/t elevated ferritin. Pt v/u. Recommended pt decrease BA chewy MV from BID to daily d/t elevated folic acid. Pt v/u. documented in this encounter Plan of Treatment Upcoming Encounters Date Type Department Care Team (Latest Contact Info) Description 04/25/2024 9:44 AM CDT Hospital Encounter [facility] - [address] [address] [place] [address] Eliana Enriquez MD [address] [place] [phone] Surgery General 04/25/2024 9:44 AM CDT - 04/25/2024 10:10 AM CDT Surgery [facility] - [address] [address] [place] [address] Eliana Enriquez MD [address] [place] [address] ESOPHAGOGASTRODUODENOSCOPY WITH BIOPSY 05/03/2024 9:30 AM CDT Office Visit [facility] Weight Management Services [facility] [place] [address] Eliana Enriquez MD [address] [place] [address] 07/19/2024 9:00 AM CDT Office Visit [facility] Health Weight Management Services [address] [place] [phone] Anusha Campa, SCOUT PROFESSIONAL SPORTS-CRANE OILER [address] [place] [address] 01/18/2025 9:00 AM ANTENNA RIGGER Clinical Support [facility] Health Weight Management Services [address] [place] [phone] 01/18/2025 9:30 AM ANTENNA RIGGER Office Visit [facility] Health Weight Management Services [address] [place] [phone] Anusha Campa, SCOUT PROFESSIONAL SPORTS-CRANE OILER [address] [place] [address] Scheduled Procedures Name Priority Associated Diagnoses Date/Ti me ESOPHAGOGASTRODUODENOSCOPY ( EGD) BIOPSY Status post bariatric surgery 04/25/2024 9:44 AM CDT documented as of this encounter Visit Diagnoses Not on filedocumented in this encounter Care Teams Senior Security Analyst Relationship Specialty Start Date End Date Betty Rodriguez MD [address] [place] [address] PCP - General Internal Medicine 09/02/22 documented as of this encounter
--- OUTSIDE RECORDS SUMMARY | 2024-02-06 01:12 | XMS_ITS | Encounter Summary ---
Author Organization [facility] Address [address] [place] [address] Care Team Providers Care Hand Sander Name Role Phone Betty Rodriguez MD Primary Care Provider [phone] Reason for Visit * Reason Onset Date Comments Post-Op 01/20/2023 Encounter Details Date Type Department Care Team (Late st Contact Info) Description 01/20/2023 Telephone [facility] Weight Management Services [address] [place] [address] Eliana Enriquez MD [address] [place] [address] Post-Op Social History Tobacco Use Types Packs/Day Years [...] encounter Miscellaneous Notes * Telephone Encounter - Katia Cloud RN - 01/20/2023 3:26 PM CST Procedure: VSG DOS: 01/17/23 1. Are you having any high fever? NO If so, is it greater than 100.5? N/A 2. Are you having any shortness of breath? NO 3. Are you taking deep breaths and coughing? Doing breathing exercises 4. Are you working with your incentive spirometer? YES And how often? QID 5. Is there any swelling in your legs? NO If yes, is it getting worse or the same as prior to surgery? N/A 6. Is it painful to move your legs or fingers? NO 7. Are you taking a water pill before surgery? YES Have you restarted after surgery? NO 8. Please rate your pain level? 04/23 9. Where is the pain? R side of abd 10. Is there an aggravating factor? Getting in and out of bed 11. Is the pain medication helping? YES, taking Tylenol q6h, has not needed oxy. 12.Do you have any nausea/vomitting? NO Are you taking any medication for it? N/A 13. Can you keep any liquid down? YES, using 1oz cups. Got in 64oz yesterday. Encouraged pt to continue with fluid intake and asked that he call office if begins having any difficulty tolerating. Encourage small amounts of liquid frequently (48-64 oz/day). 14. Are you drinking your protein shakes? How many/how much? YES, getting in 2 shakes/day and also protein water. 15 Do you feel light headed? NO Does it worsen when you stand up from lying down? N/A 16. Are you making adequate urine? YES 17. Have you had a bowel movement after surgery? YES If no, are you taking stool softeners or would you like to try a suppository? 18. Are you getting up and walking around? Lying can cause pneumonia and clots. YES 19. Your follow up appt is scheduled for: 01/27/23 20. Do you have a scheduled follow up appointment with your PCP? Encouraged pt to contact PCP 21. Patient verified having Dr. Enriquez/Dr. Loo's contact information and has number to hospital switchboard. YES UP documented in this encounter Plan of Treatment Upcoming Encounters Date Type Department Care Team (Latest Contact Info) Description 04/25/2024 9:44 AM CDT Hospital Encounter [facility] Op [address] [place] [address] Eliana Enriquez MD [address] [place] [address] Surgery General 04/25/2024 9:44 AM CDT - 04/25/2024 10:10 AM CDT Surgery [facility] - [facility] Op [address] [place] [address] Eliana Enriquez MD [address] [place] [address] ESOPHAGOGASTRODUODENOSCOPY WITH BIOPSY 05/03/2024 9:30 AM CDT Office Visit [facility] Weight Management Services [address] [place] [phone] Eliana Enriquez MD [address] [place] [address] 07/19/2024 9:00 AM CDT Office Visit [facility] Weight Management Services [address] [place] [phone] Anusha Campa, COMBAT CONTROL MANAGER-REFRIGERATION ENGINE OPERATOR [address] [place] [address] 01/18/2025 9:00 AM BEND UP Clinical Support [facility] Health Weight Management Services [address] [place] [phone] 01/18/2025 9:30 AM BEND UP Office Visit [facility] Weight Management Services [address] [place] [phone] Anusha Campa, COMBAT CONTROL MANAGER-REFRIGERATION ENGINE OPERATOR [address], [place] [phone] Scheduled Procedures Name Priority Associated Diagnoses Date/Ti me ESOPHAGOGASTRODUODENOSCOPY ( EGD) BIOPSY Status post bariatric surgery 04/25/2024 9:44 AM CDT documented as of this encounter Visit Diagnoses Not on filedocumented in this encounter Care Teams Hand Sander Relationship Specialty Start Date End Date Betty Rodriguez MD [address] [place] [phone] PCP - General Internal Medicine 09/02/22 documented as of this encounter
--- OUTSIDE RECORDS SUMMARY | 2024-02-06 01:12 | XMS_ITS | Encounter Summary ---
Author Organization [facility] Address [address] [place] [address] Care Team Providers Care Dinner Cook Name Role Phone Betty Rodriguez MD Primary Care Provider [phone] Reason for Referral * Medication Prior Authorization - Closed Specialty Diagnoses / Procedures Referred By Arnold sanchez Referred To Contact Diagnoses Bariatric surgery status Anusha Campa APRN-CNP [address] [place] [address] Referral ID Status Reason Start Date Expiration Date Visits Re quested Visits Authorized [id number] Closed 1 1 ERCIAL REAL ESTATE LENDER Reason for Visit * Reason Onset Date Comments Pre Op Call 01/10/2023 Encounter Details Date Type Department Care Team (Late st Contact Info) Description 01/10/2023 Telephone [facility] Weight Management Services [address] [place] [phone] Anusha Campa APRN-CNP [address] [place] [address] Pre Op Call Social History Tobacco Use Types Packs/Day Years Used Date Smoking Tobacco: Never Smokeless Tobacco: Never Alcohol Use Standard Drinks/Week Comments Yes 0 (1 standard drink = 0.6 oz pur e alcohol) 2-3x weekly AUDIT-C Answer Date Recorded Q1: How often do you have a drink containing alc ohol? Monthly or less 11/12/2022 Q2: How many drinks containi ng alcohol do you have on a typical day when you are drinking? 1 or 2 11/12/2022 Q3: How often do you have si x or more drinks on one occasion? Less than monthly 11/12/2022 Sex and Gender Information Value Date Recorded Sex Assigned at Not on file Gender Identity Not on file Sexual Orientation Not on file documented as of this encounter Functional Status Functional Status Response Date of Assess ment Is person deaf or have serious hearing difficult y? No 11/12/2022 Is person blind or have serious difficulty seein g? No 11/12/2022 Does person have serious dif ficulty walking/climbing stairs? No 11/12/2022 Does person have difficulty dressing/bathing? No 11/12/2022 Does person have difficulty doing errands alone? No 11/12/2022 Cognitive Status Response Date of Assessm ent Does person have difficulty concentrating/remembering/making decisions? No 11/12/2022 documented as of this encounter Miscellaneous Notes * Telephone Encounter - Anusha Campa APRN-CNP - 01/10/2023 2:25 PM COMMERCIAL REAL ESTATE LENDER [place]P reviewed and bariatric surgery medications sent to patient's pharmacy of choice. ERCIAL REAL ESTATE LENDER * Telephone Encounter - Katia Cloud RN - 01/10/2023 2:05 PM CST Spoke with patient and reviewed current meds and allergies. Reviewed what meds to stop prior to bariatric surgery and when. Reviewed scripts for pre and post op that will be sent to pharm along with instructions for use. Explained that will email info to patient as well and asked that pt call back with any questions/concerns. Pt v/u. ERCIAL REAL ESTATE LENDER documented in this encounter Plan of Treatment Upcoming Encounters Date Type Department Care Team (Latest Contact Info) Description 04/25/2024 9:44 AM CDT Hospital Encounter [facility] - [place] Op [address] [place] [address] Eliana Enriquez MD [address] [place] [phone] Surgery General 04/25/2024 9:44 AM CDT - 04/25/2024 10:10 AM CDT Surgery [facility] - [facility] Op [address] [place] [address] Eliana Enriquez MD [address] [place] [address] ESOPHAGOGASTRODUODENOSCOPY WITH BIOPSY 05/03/2024 9:30 AM CDT Office Visit [facility] Weight Management Services [address] [place] [address] Eliana Enriquez MD [address] [place] [address] 07/19/2024 9:00 AM CDT Office Visit [facility] Weight Management Services [address] [place] [address] Anusha Campa, SPORT PSYCHOLOGIST-HOG DROPPER [address] [place] [address] 01/18/2025 9:00 AM COMMERCIAL REAL ESTATE LENDER Clinical Support [facility] Health Weight Management Services [address] [place] [address] 01/18/2025 9:30 AM COMMERCIAL REAL ESTATE LENDER Office Visit [facility] Weight Management Services [address] [place] [address] Anusha Campa, SPORT PSYCHOLOGIST-HOG DROPPER [address] [place] [address] Scheduled Procedures Name Priority Associated Diagnoses Date/Ti me ESOPHAGOGASTRODUODENOSCOPY ( EGD) BIOPSY Status post bariatric surgery 04/25/2024 9:44 AM CDT documented as of this encounter Visit Diagnoses Diagnosis Bariatric surgery status- Primary Status post bariatric surgery Bariatric surgery status documented in this encounter Care Teams Dinner Cook Relationship Specialty Start Date End Date Betty Rodriguez MD [address] [place] [phone] PCP - General Internal Medicine 09/02/22 documented as of this encounter
--- OUTSIDE RECORDS SUMMARY | 2024-02-06 01:12 | XMS_ITS | Encounter Summary ---
Author Organization [facility] Address [address] [place] [address] Care Team Providers Care Retail [employer] Professional Name Role Phone Betty Rodriguez MD Primary Care Provider [phone] Reason for Visit * Reason Comments Bariatric Surgery Follow-up 1 week post op Encounter Details Date Type Department Care Team (Late st Contact Info) Description 01/27/2023 9:15 AM CLERICAL WAREHOUSE WORKER Office Visit [facility] [address] [place] [phone] Eliana Enriquez MD [address] [place] [address] Status post laparoscopic sleeve gastrectomy (Primary Dx) Social History Tobacco Use Types Packs/Day Years [...] Sign Reading Time Taken Comments Blood Pressure 138/78 01/27/2023 9:08 AM CLERICAL WAREHOUSE WORKER Pulse 77 01/27/2023 9:08 AM CLERICAL WAREHOUSE WORKER Temperature 36.1 ??C (97 ??F) 01/27/2023 9:08 AM CLERICAL WAREHOUSE WORKER Respiratory Rate 16 01/27/2023 9:08 AM CLERICAL WAREHOUSE WORKER Oxygen Saturation 96% 01/27/2023 9:08 AM CLERICAL WAREHOUSE WORKER Inhaled Oxygen Concentration - - Weight 136.9 kg (301 lb 14.4 oz) 01/27/2023 9:08 AM CLERICAL WAREHOUSE WORKER Height 182.9 cm (6') 01/27/2023 9:08 AM CLERICAL WAREHOUSE WORKER Body Mass Index 40.95 01/27/2023 9:08 AM CLERICAL WAREHOUSE WORKER documented in this encounter Functional Status Functional [...] as of this encounter Progress Notes * Eliana Enriquez MD - 01/27/2023 9:32 AM CST [facility] [place] [address] . . Date of encounter: No admission date for patient encounter. Pt Name: Jayesh Anderson : 1955 AGE: [age] year old SEX: male CSN: [id number] Visit type: Weight Management Follow Up Patients Primary care provider is : Betty Rodriguez MD Subjective: Jayesh Anderson presents to the clinic 1 week following sleeve gastrectomy. Patient is taking 90 grams of proteins supplements daily. Patient is taking 120 oz of fluid per day. Doing 10 minutes of exercise daily. Patient is taking Bariatric multivitamins. Patient is not having Reflux, Vomiting and Dysphagia, The patient is not having any pain.. [...] appropriate facility or drop- off? Still has Obesity History Years of being overweight? 38yrs Age of first weight loss attempt? 18 Highest weight as an adult? 320 Goal Weight? 200 BMI: Body mass index is 40.95 kg/m??. Past Medical History: Diagnosis Date ??? [...] Outpatient Medications Marked as Taking for the 01/27/23 encounter (Office Visit) with Eliana Enriquez MD Medication Sig ??? Calcium Carbonate (CALCIUM 600 PO) Take 600 mg by mouth 2 times daily 1 tab by mouth twice a day ??? docusate sodium (Colace) 100 MG capsule Take 1 (one) capsule by mouth 2 times daily ??? Multiple Vitamins-Minerals (Centrum Silver) TABS Take 1 (one) tablet by mouth daily with food ??? omeprazole (PriLOSEC) 40 MG capsule Take 1 (one) capsule by mouth daily before breakfast ??? ondansetron, disintegrating, (Zofran ODT) 4 MG tablet Take 1 (one) tablet by mouth every 4 hours as needed for Nausea/Vomiting Allow tablet to dissolve on the tongue ??? Probiotic Product ([employer]) capsule Take 1 (one) capsule by mouth [...] except as described in HPI. Objective: BP 138/78 Pulse 77 Temp 97 ??F (36.1 ??C) Resp 16 Ht 1.829 m (6') Wt (!) 136.9 kg (301 lb14.4 oz) SpO2 96% Weight: (!) 136.9 kg (301 lb 14.4 oz) Height: 182.9 cm (6') Body mass index is 40.95 kg/m??. Constitutional: Alert, awake and oriented without [...] No palpableventral hernias. Wound healing well. Skin: Lazear and moist. No ulcers, rashes, or lesions. [...] GLUCOSE 124 100 Recent Labs Component Name 1248 01/17/23 1130 AST 32 42* ALT 38 48 Recent Labs Component Name 01/18/2348 HDL 51 TRIG 86 TSH 1.9327 Recent Labs Component Name 01/18/23547 HGBA1C 5.1 Recent Labs Component Name 01/18/23547 TSH 1.9327 Recent Labs Component Name 01/18/2348 TSH 1.9327 No results for input(s): IRON in the last 65595 hours. No results for input(s): DNVFZQMX45 in the last 59161 hours. No results for input(s): VITAMINA in the last 31588 hours. No results for input(s): IRON in the last 92886 hours. No results for input(s): VITK1 in the last 28540 hours. No results for input(s): [id number] in the last 02655 hours. No results for input(s): ALPHATOCOPH in the last 06843 hours. No results for input(s): GAMMATOCOPH in the last 00035 hours. No results for input(s): MAGMGDL in the last 52371 hours. Recent Labs Component Name 01/18/2348 PHOS 3.05 Some lab results will be in paper format so may be scanned in the EMR. Imaging studies No results found. Some Imaging studies results will be in paper format so may be scanned in the EMR. Assessment and Plan Morbid Obesity : Change in weight as noted in the weight history above. Total weight loss since starting the program:66.9 pounds Current BMI Body mass index is 40.95 kg/m??. with weight of Weight: (!) 136.9 kg (301 lb 14.4 oz) . Surgery : s/p: Sleeve Gastrectomy . Date of surgery 01/17/23. @ [facility], by myself. Doing well postoperative. Operative note reviewed with patient. Wounds healing well. No hernia palpable. Continue Prilosec 40 mg daily for 3 months. Continue Colon Health for 3 months. Start Actigall 10 days after surgery for 3 months. No lifting more than 10 pounds for 2 weeks after surgery. May use fibre supplementation like Bene fiber 1-2 teaspoon twice [...] should he fail to take supplementation. History of??Gastric Ulcer Preop EGD 11/12/22. showed??2 antral ulcers. He underwent repeat EGD 12/13/22 which was normal. ?? History of Hypertension?? Patient was recently taken off of lisinopril/??hydrochlorothiazide. Blood pressure in the office today 138/78. ?? Sleep apnea Patient had a sleep study which showed sleep apnea. Weight loss could help with resolving this condition as well. Patient was encouraged to utilize CPAP/ BiPAP as pre recommended settings ?? History of Hypercholesterolemia?? Patient recently taken off of Lipitor 40 mg for this. ?? Colon cancer screening He denies family [...] on initial testing. ??He completed??supplementation per protocol. ??Repeat vitD 01/18/23 was normal at 42.0. ?? Umbilical hernia I discussed with the patient his incarcerated umbilical hernia. ??He is interested in weight loss surgery. ??Will proceed with weight loss surgery 1st and then umbilical hernia repair if he becomes symptomatic in the future. ?? I counseled the patient on continuing Behavior and Lifestyle Modifications : Recommended to take about 60-80 g of protein per day. Eliminate high caloric beverages. Do not graze between meals. Portion control, measuring portions, showed portion control plates. Choosing low sugar, high protein items. Reducing stress and emotional eating. Patient was instructed to keep a food journal. Patient was counseled on the need for routine exercise plan, at least 10 minutes per day. Follow up with: Surgeons / PA/ LINOLEUM FLOOR INSTALLER : 3 weeks Dietitian: as scheduled. He verbalized understanding and is agreeable to this plan after shared decision making with patient. Eliana Enriquez MD CC: Betty Rodriguez MD ICAL WAREHOUSE WORKER documented in this encounter Plan of Treatment Upcoming Encounters Date Type Department Care Team (Latest Contact Info) Description 04/25/2024 9:44 AM CDT Hospital Encounter [facility] [address] [place] [address] Eliana Enriquez MD [address] [place] [phone] Surgery General 04/25/2024 9:44 AM CDT - 04/25/2024 10:10 AM CDT Surgery [facility] [address] [place], [place] [phone] Eliana Enriquez MD [address] [place] [phone] ESOPHAGOGASTRODUODENOSCOPY WITH BIOPSY 05/03/2024 9:30 AM CDT Office Visit [facility] [address] [place] [phone] Eliana Enriquez MD [address] [place] [phone] 07/19/2024 9:00 AM CDT Office Visit [facility] [address] [place] [phone] Anusha Campa, PATHOLOGY LABORATORY DIRECTOR-CONVEX GRINDER OPERATOR [address] [place] [address] 01/18/2025 9:00 AM CLERICAL WAREHOUSE WORKER Clinical Support [facility] [address] [place] [phone] 01/18/2025 9:30 AM CLERICAL WAREHOUSE WORKER Office Visit [facility] [address] [place] [phone] Anusha Campa, PATHOLOGY LABORATORY DIRECTOR-CONVEX GRINDER OPERATOR [address] [place] [address] Scheduled Procedures Name Priority Associated Diagnoses Date/Ti me ESOPHAGOGASTRODUODENOSCOPY ( EGD) BIOPSY Status post bariatric surgery 04/25/2024 9:44 AM CDT documented as of this encounter Visit Diagnoses Diagnosis Status post laparoscopic sleeve gastrectomy- Primary Status post bariatric surgery Bariatric surgery status documented in this encounter Care Teams [employer] Professional Relationship Specialty Start Date End Date eBtty Rodriguez MD [address] [place] [phone] PCP - General Internal Medicine 09/02/22 documented as of this encounter
--- OUTSIDE RECORDS SUMMARY | 2024-02-06 01:12 | XMS_ITS | Encounter Summary ---
Author Organization [facility] Address [address] [place] [address] Care Team Providers Care Chief Wellness Officer Name Role Phone Betty Rodriguez MD Primary Care Provider [phone] Encounter Details Date Type Department Care Team (Late st Contact Info) Description 12/17/2022 Orders Only [facility] [address] [place] [address] Shanel Ware, CLINICAL TECHNICIAN-ANALYTICS DIRECTOR [address] [place] [phone] Abnormal laboratory test result Social History Tobacco Use Types Packs/Day Years Used Date Smoking Tobacco: Never Smokeless Tobacco: Never Alcohol Use Standard Drinks/Week Comments Yes 0 (1 standard drink = 0.6 oz pur e alcohol) 2-3 drinks AUDIT-C Answer Date Recorded Q1: How often [...] No 11/12/2022 documented as of this encounter Plan of Treatment Upcoming Encounters Date Type Department Care Team (Latest Contact Info) Description 04/25/2024 9:44 AM CDT Hospital Encounter [facility] [address] [place] [address] Eliana Enriquez MD [address] [place] [phone] Surgery General 04/25/2024 9:44 AM CDT - 04/25/2024 10:10 AM CDT Surgery [facility] [address] [place] [address] Eliana Enriquez MD [address] [place] [phone] ESOPHAGOGASTRODUODENOSCOPY WITH BIOPSY 05/03/2024 9:30 AM CDT Office Visit [facility] [address] [place] [address] Eliana Enriquez MD [address] [place] [phone] 07/19/2024 9:00 AM CDT Office Visit [facility] [address] [place] [address] Anusha Campa APRN-ANALYTICS DIRECTOR [address] [place] [address] 01/18/2025 9:00 AM RULING MACHINE FEEDER Clinical Support [facility] [address] [place] [address] 01/18/2025 9:30 AM RULING MACHINE FEEDER Office Visit [facility] [address] [place] [phone] Anusah Campa APRN-ANALYTICS DIRECTOR [address] [place] [address] Scheduled Procedures Name Priority Associated Diagnoses Date/Ti me ESOPHAGOGASTRODUODENOSCOPY ( EGD) BIOPSY Status post bariatric surgery 04/25/2024 9:44 AM CDT documented as of this encounter Visit Diagnoses Diagnosis Abnormal laboratory test result Other abnormal clinical finding Status post bariatric surgery Bariatric surgery status documented in this encounter Care Teams Chief Wellness Officer Relationship Specialty Start Date End Date Betty Rodriguez MD [address] [place] [phone] PCP - General Internal Medicine 09/02/22 documented as of this encounter
--- OUTSIDE RECORDS SUMMARY | 2024-02-06 01:12 | XMS_ITS | Encounter Summary ---
Author Organization [facility] Address [address] [place] [address] Care Team Providers Care Recruitment Consultant Name Role Phone Betty Rodriguez MD Primary Care Provider [phone] Reason for Visit * Auth/Cert (Routine) Specialty Diagnoses / Procedures Referred By Contdipak t Referred To Contact Diagnoses Gastric ulcer, unspecified chronicity, unspecified whether gastric ulcer hemorrhage or perforation present Gastric ulcer, unspecified chronicity, unspecified whether gastric ulcer hemorrhage or perforation present [K25.9] Procedures WI EGD FLEX TRANSORAL W BX SNGL OR MULT ESOPHAGOGASTRODUODENOSCOPY (EGD) BIOPSY Referral ID Status Reason Start Date Expiration Date Visits Re quested Visits Authorized [id number] 1 1 Encounter Details Date Type Department Care Team (Late st Contact Info) Description 12/13/2022 8:55 AM CDT Anesthesia Event [facility] - Dena Op [address] [place] [address] Gabbie Contreras MD [address] [place] [phone] Samantha Lucero MD [address] [facility] [address] [place] [address] Anesthesia Record Procedure Summary Procedure Name Responsible Anesthesiologist Anesthesia Start Time Anesthesia Stop Time ESOPHAGOGASTRODUODENOSCOPY W ITH BIOPSY (Esophagus) Gabbie Contreras MD 12/13/22 0855 12/13/22 0940 Events Date Time Event Comment 12/13/2022 0755 0855 An Start 0857 An Start Data 0900 PT Reassessment 09 Timeout Anesthesia part icipated in timeout at the time documented in the record by nursing. 09 Proc Start 0934 Electnc Sig This record is electronically signed by the providers listed under staff. 0940 an stop data 0940 An Stop 0941 Handoff Meds Name Total midazolam (VERSED) 1 mg/mL injection 2 m g lidocaine (XYLOCAINE) 2% injection 100 m g propofol 200mg/20mL injection 40 mg propofol 500mg/50mL injection 121.36 mg glycopyrrolate 0.2 mg/mL injection 0.2 m g ketamine 50 mg/ml injection 20 mg lactated ringers infusion 400 mL * Agents Name O2 * Blood No blood administrations on file. Lines, Drains, and Airways Type Details Placement Removal Peripheral IV Date: 12/13/22; Time: 629; Orientation: Posterior, Right; Placed By: Shaista Manzo; Tolerance: Well 12/13/22 0630 by Shaista Stanton RN 12/13/22 1048 by Shaista Stanton, LUZ Procedural Site (Incision) 12/13/22; 0929; Mouth; Endoscopic; EGD with biopsy; 12/13/22; 1651 12/13/22 0929 by Charito Duarte RN 12/13/22 1651 by Ivrin, Auto Release documented in this encounter Social History Tobacco Use Types Packs/Day Years [...] No 11/12/2022 documented as of this encounter Progress Notes * Gabbie Contreras MD - 12/13/2022 10:15 AM CDT ANESTHESIA POSTOP EVALUATION NOTE Procedure: ESOPHAGOGASTRODUODENOSCOPY WITH BIOPSY (Esophagus) Jayesh Anderson is a 67 year old male Patient Vitals for the past 6 hrs: BP Temp Pulse Resp SpO2 Pain Rating Score #1 Pain Scale/Observation Pulse - (SPO2/Cuff) 12/13/22 0649 138/70 98.1 ??F (36.7 ??C) 88 17 95 % -- N -- 12/13/22 0943 122/76 97.2 ??F (36.2 ??C) 90 26 -- 0 N 90 bpm 12/13/22 0945 131/77 -- 89 25 91 % -- -- 89 bpm 12/13/22 0950 117/79 -- 84 16 93 % -- -- 83 bpm 12/13/22 0955 120/80 -- 84 22 92 % -- -- 85 bpm 12/13/22 0957 120/80 -- 96 25 93 % 0 N 93 bpm 12/13/22 1000 123/69 -- 84 20 95 % -- -- 85 bpm Anesthesia Type: MAC Pre-op Diagnosis Codes: * Gastric ulcer, unspecified chronicity, unspecified whether gastric ulcer hemorrhage or perforation present [K25.9] Mental Status: awake, alert, oriented and sufficiently recovered from acute administration of anesthesia to participate in the evaluation Neuro Status: No numbness, tingling or visual disturbances Respiratory Function: natural, requires O2 and other - please comment (K/c/o KENYA and home O2 use with CPAP) Cardiac Function: stable Postop Pain: acceptable to the patient Postop Hydration: adequate Postop Nausea: none Assessment: no apparent anesthetic complications Patient Disposition: Release from Anesthesia Care NOTABLE EVENTS: No notable events documented. * Gabbie Contreras MD - 12/13/2022 7:46 AM CDT ANESTHESIA PREOPERATIVE EVALUATION NOTE Procedure: ESOPHAGOGASTRODUODENOSCOPY WITH BIOPSY NPO status: Since Midnight (12/13/2022 6:38 AM) Vitals: Patient Vitals for the past 6 hrs: BP Temp Pulse Resp SpO2 12/13/22 0649 138/70 98.1 ??F (36.7 ??C) 88 17 95 % LMP: No LMP for male patient. OB Status: unknown ANESTHESIA PRE-EVALUATION NOTE History of Present Illness: H/o Gastric ulcer diagnosed on EGD 6 wks ago for followup EGD and biopsy The patient is a current non-smoker. Physical Exam: Orientation X3 Airway/Mallampati Score: III Mouth Opening Distance: 3.5 fingerwidths Neck ROM: full (Short neck) TM Distance: < 3 FB Teeth: edentulous, dentures/partials upper and dentures/partials lower Heart: normal - S1 S2 Lungs: clear to ausculation bilaterally Abdomen Exam: obese Review of Systems: History of anesthetic complications: No Sleep Apnea Risk: Yes, Large neck circumference, CPAP - compliant Malignant Hyperthermia: No GERD: No Poor Exercise Tolerance: No Recent Chest Pain: No Shortness of Breath: No AICD/Pacemaker: No Renal Disease: No Other Findings: Gastric ulcer found on EGD done for preop evaluation for gastric sleeve surgery Pt on meds for the same And never had complaints from the gastric ulcer ANESTHESIA PLAN ASA Score: 3 NPO Status: No solids since midnight and No liquids within 2 hours Anesthesia Plan: MAC Planned Induction: intravenous Planned Postop Destination: PACU Anesthetic plan was discussed with: patient Anesthetic Plan discussion was: Consented The patient's procedural Anesthetic Plan was discussed with the SLOT KEY PERSON. BMI, Height, Weight Tobacco History Estimated body mass index is 43.98 kg/m?? as calculated from the following: Height as of this encounter: 1.829 m (6'). Weight as of this encounter: 147.1 kg (324 lb 4.8 oz). Social History Tobacco Use Smoking Status Never Smokeless Tobacco Never Alcohol History Drug History Social History Substance and Sexual Activity Alcohol Use Yes Comment: 2-3 drinks Social History Substance and Sexual Activity Drug Use Never Outpatient Medications: Inpatient Medications: Outpatient Medications Marked as Taking for the 12/13/22 encounter (Hospital Encounter) Medication Sig Last Dose ??? atorvastatin Take 1 (one) tablet by mouth at bedtime 12/12/2022 ??? Coenzyme Q10 (CO Q 10 PO) 12/12/2022 ??? lisinopril-hydroCHLOROthiazide Take 1 (one) tablet by mouth once daily 12/12/2022 ??? Centrum Silver Take 1 (one) tablet by mouth daily with food 12/12/2022 ??? omeprazole Take 1 (one) capsule by mouth 2 times daily, before breakfast and supper 12/12/2022 ? ? sucralfate Take 1 (one) tablet by mouth 4 times daily - before meals & nightly Crush tabletin small amount of liquid prior to taking 12/12/2022 ??? vitamin D (ergocalciferol) Take 1 (one) capsule by mouth every 7 days Reasons: Vitamin D Deficiency 12/12/2022 Current Facility-Administered Medications Medication Dose Last Admin ??? 0.9% NaCl 3 mL ??? lactated ringers New Bag at 12/13/22 0630 Allergies: No Known Allergies Relevant Problems Problem List: There are no problems to display for this patient. Medical History: Past Medical History: Diagnosis Date ??? HTN (hypertension) Surgical History: Past Surgical History: Procedure Laterality Date ??? COLONOSCOPY WITH POLYPECTOMY N/A 11/12/2022 N/A; COLONOSCOPY with polypectomy ??? ENDOSCOPY, UPPER N/A 11/12/2022 N/A; ESOPHAGOGASTRODUODENOSCOPY with biopsy ??? Lumbar Diskectomy ??? 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 unknown OB History No obstetric history on file. Covid Vaccine: Lab Results: No results found for requested labs within last 120 days. No results found for requested labs within last 120 days. documented in this encounter Miscellaneous Notes * Anesthesia Transfer of Care - Chula Satnos APRN-SLOT KEY PERSON - 12/13/2022 9:40 AM CDT ANESTHESIA TRANSFER OF CARE NOTE Today's Date: 12/13/2022 Date of : 1955 Patient: Jayesh Anderson Procedure(s): ESOPHAGOGASTRODUODENOSCOPY WITH BIOPSY Surgeon(s): Primary: Eliana Enriquez MD Surgeon Assisting: Hermila Medina MD Preop Diagnosis: Pre-op Diagnois: * Gastric ulcer, unspecified chronicity, unspecified whether gastric ulcer hemorrhage or perforation present [K25.9] Pre-op Meds (From admission, onward) Start Stop Status Route Frequency Ordered 12/13/22 06 0.9% NaCl injection 3 mL -- Dispensed IK PRE-PROCEDURE MULTIPLE 12/13/22 0609 12/13/22 0615 famotidine (Pepcid) injection 20 mg 12/13/22 0630 Completed IV PRE-OP ONCE 12/13/22 0609 12/13/22 0912 glycopyrrolate (Robinul) injection -- Sent IV PRN 12/13/22 0912 12/13/22 0926 ketamine (Ketalar) injection -- Sent IV PRN 12/13/22 0935 12/13/22 0615 lactated ringers infusion -- Dispensed IV PRE-OP CONTINUOUS 12/13/22 0609 12/13/22 0926 lidocaine (Xylocaine) 2 % injection -- Sent IV PRN 12/13/22 0935 12/13/22 0926 midazolam (Versed) injection -- Sent IV PRN 12/13/22 0934 12/13/22 0926 propofol (Diprivan) infusion -- Sent IV CONTINUOUS PRN 12/13/22 0935 12/13/22 0926 propofol (Diprivan) injection -- Sent IV PRN 12/13/22 0935 Post-op Diagnosis: * Gastric ulcer, unspecified chronicity, unspecified whether gastric ulcer hemorrhage or perforation present [K25.9] . No Known Allergies Vitals: Patient Vitals for the past 3 hrs: BP Temp Pulse Resp SpO2 12/13/22 0649 138/70 98.1 ??F (36.7 ??C) 88 17 95 % Lines, Drains, and Airways Type Details Placement Removal Peripheral IV Date: 12/13/22; Time: 0630; Orientation: Posterior, Right; Location: Hand; Placed By:Shaista Manzo; Gauge: 20 Gauge; Locals: None; Tolerance: Well 12/13/22 0630 by Shaista Stanton RN Intraprocedure I/O Totals Intake lactated ringers infusion 400.00 mL I.V. 400 mL Total Intake 800 mL Output Urine 0 mL Estimated Blood Loss 0 mL Total Output 0 mL Net Net Volume 800 mL Patient Transfer Location: PACU Transport Airway: spontaneous respirations Complications: None Handoff Given? Yes Checklist or Protocol - The lees handoff elements that must be included in the transfer of care checklist include: 1. Identification of patient. 2. Identification of responsible practitioner (PACU nurse or advanced practitioner). 3. Discussion of pertinent medical history. 4. Discussion of the surgical/procedure course (procedure, reason for surgery, procedure performed). 5. Intraoperative anesthetic management and issue/concerns. 6. Expectations/Plans for the early post-procedure period. 7. Opportunity for questions and acknowledgement of understanding of report from the receiving PACUteam. SOFIA Armas documented in this encounter Plan of Treatment Upcoming Encounters Date Type Department Care Team (Latest Contact Info) Description 04/25/2024 9:44 AM CDT Hospital Encounter [facility] - [address] [place] [address] Eliana Enriquez MD [address] [place] [phone] Surgery General 04/25/2024 9:44 AM CDT - 04/25/2024 10:10 AM CDT Surgery [facility] - [address]ena Op [address] [place] [address] Eliana Enriquez MD [address] [place] [address] ESOPHAGOGASTRODUODENOSCOPY WITH BIOPSY 05/03/2024 9:30 AM CDT Office Visit [facility] Weight Management Services [address] [place] [phone] Eliana Enriquez MD [address] [place] [address] 07/19/2024 9:00 AM CDT Office Visit [facility] Weight Management Services [address] [place] [address] Anusha Campa, CAP AND STUD MACHINE OPERATOR-GERMAN PROFESSOR [address], [place] [phone] 01/18/2025 9:00 AM CREDIT RISK MANAGEMENT DIRECTOR Clinical Support [facility] Weight Management Services [address] [place] [phone] 01/18/2025 9:30 AM CREDIT RISK MANAGEMENT DIRECTOR Office Visit [facility] Services [address] [facility] [place] [phone] Anusha Campa, CAP AND STUD MACHINE OPERATOR-GERMAN PROFESSOR [address], [place] [phone] Scheduled Procedures Name Priority Associated Diagnoses Date/Ti wa ESOPHAGOGASTRODUODENOSCOPY ( EGD) BIOPSY Status post bariatric surgery 04/25/2024 9:44 AM CDT documented as of this encounter Visit Diagnoses Not on filedocumented in this encounter Administered Medications Inactive Administered Medications - up to 3 most recent administrations Medication Order MAR Action Action Date Dose Rate Site glycopyrrolate (Robinul) injection Intravenous, PRN, Starting on Tue12/13/22 at 0912, Until Tue12/13/22 at 0940, Anesthesia Intra-op $ Given 12/13/2022 9:12 AM CDT 0.2 mg ketamine (Ketalar) injection Intravenous, PRN, Starting on Tue12/13/22 at 0926, Until Tue12/13/22 at 0940, Anesthesia Intra-op $ Given 12/13/2022 9:26 AM CDT 20 mg lidocaine (Xylocaine) 2 % injection Intravenous, PRN, Starting on Tue12/13/22 at 0926, Until Tue12/13/22 at 0940, Anesthesia Intra-op $ Given 12/13/2022 9:26 AM CDT 100 mg midazolam (Versed) injection Intravenous, PRN, Starting on Tue12/13/22 at 0926, Until Tue12/13/22 at 0940, Anesthesia Intra-op $ Given 12/13/2022 9:26 AM CDT 2 mg propofol (Diprivan) infusion Intravenous, CONTINUOUS PRN, Starting on Tue12/13/22 at 0926, Until Tue12/13/22 at 0940, Anesthesia Intra-op Rate Change 12/13/2022 9:31 AM CDT 150 mcg/kg/min 132.39 mL/hr $ New Bag/Syringe 12/13/2022 9:26 AM CDT 75 mcg/kg/min 66. 195 mL/hr propofol (Diprivan) injection Intravenous, PRN, Starting on Tue12/13/22 at 0926, Until Tue12/13/22 at 0940, Anesthesia Intra-op $ Given 12/13/2022 9:26 AM CDT 40 mg documented in this encounter Care Teams Recruitment Consultant Relationship Specialty Start Date End Date Betty Rodriguez MD [address] [place] [address] PCP - General Internal Medicine 09/02/22 documented as of this encounter
--- OUTSIDE RECORDS SUMMARY | 2024-02-06 01:12 | XMS_ITS | Encounter Summary ---
Author Organization [facility] Address [address] [address] Care Team Providers Care Product Specialist Name Role Phone Betty Rodriguez MD Primary Care Provider [phone] Encounter Details Date Type Department Care Team (Late st Contact Info) Description 01/14/[address] [facility] Weight Management Services [address] [place] [phone] Anusha Campa, SENIOR BACKUP ADMINISTRATOR-ENROUTE CONTROLLER [address] [place] [address] Vitamin D deficiency Social History Tobacco Use [...] CDT Hospital Encounter [facility] Dena Op [address] [place] [address] Eliana Enriquez MD [address] [place] [address] Surgery General 04/25/2024 9:44 AM CDT - 04/25/2024 10:10 AM CDT Surgery [facility] Dena Op [address] [place] [address] Eliana Enriquez MD [address] [place] [address] ESOPHAGOGASTRODUODENOSCOPY WITH BIOPSY 05/03/2024 9:30 AM CDT Office Visit [facility] Weight Management Services [address] [place] [address] Eliana Enriquez MD [address] [place] [address] 07/19/2024 9:00 AM CDT Office Visit [facility] Management Services [address] [place] [address] Anusha Campa, SENIOR BACKUP ADMINISTRATOR-ENROUTE CONTROLLER [address] [place] [address] 01/18/2025 9:00 AM FITNESS CLUB MANAGER Clinical Support [facility] Weight Management Services [address] [place] [address] 01/18/2025 9:30 AM FITNESS CLUB MANAGER Office Visit [facility] [address] [place] [address] Anusha Campa APRN-ENROUTE CONTROLLER [address] [place] [address] Scheduled Procedures Name Priority Associated Diagnoses Date/Ti me ESOPHAGOGASTRODUODENOSCOPY ( EGD) BIOPSY Status post bariatric surgery 04/25/2024 9:44 AM CDT documented as of this encounter Visit Diagnoses Diagnosis Vitamin D deficiency Status post bariatric surgery Bariatric surgery status documented in this encounter Care Teams Product Specialist Relationship Specialty Start Date End Date Betty Rodriguez MD [address] [place] [address] PCP - General Internal Medicine 09/02/22 documented as of this encounter
--- OUTSIDE RECORDS SUMMARY | 2024-02-06 01:12 | XMS_ITS | Encounter Summary ---
Author Organization [facility] Address [address] [place] [address] Care Team Providers Care Customer Experience Intern Name Role Phone Betty Rodriguez MD Primary Care Provider [phone] Reason for Visit * Reason Onset Date Comments Pre-op Instructions 01/12/2023 Encounter Details Date Type Department Care Team (Late st Contact Info) Description 01/12/2023 Telephone [facility] Weight Management Services [address] [place] [phone] Lisa Perez RN Pre-op Instructions Social History Tobacco Use Types Packs/Day Years [...] encounter Miscellaneous Notes * Telephone Encounter - Lisa Perez RN - 01/12/2023 10:47 AM CST Attempted to call patient to review pre-op instructions. No answer. Left voicemail requesting a return call. [place] ASSOCIATE MANAGER BILINGUAL documented in this encounter Plan of Treatment Upcoming Encounters Date Type Department Care Team (Latest Contact Info) Description 04/25/2024 9:44 AM CDT Hospital Encounter [facility] - [address]ena Op [address] [place] [address] Eliana Enriquez MD [address] [place] [address] Surgery General 04/25/2024 9:44 AM CDT - 04/25/2024 10:10 AM CDT Surgery [facility] - Dena Op [address] [place] [address] Eliana Enriquez MD [address] [place] [address] ESOPHAGOGASTRODUODENOSCOPY WITH BIOPSY 05/03/2024 9:30 AM CDT Office Visit [facility] Weight Management Services [address] [place] [address] Eliana Enriquez MD [address] [place] [address] 07/19/2024 9:00 AM CDT Office Visit [facility] Weight Management Services [address] [place] [address] Anusha Campa, SALES ASSISTANT INSTITUTIONAL SALES-CERTIFIED PEDORTHOTIST [address] [place] [address] 01/18/2025 9:00 AM RETAIL ASSOCIATE MANAGER BILINGUAL Clinical Support [facility] Weight Management Services [address] [place] [address] 01/18/2025 9:30 AM RETAIL ASSOCIATE MANAGER BILINGUAL Office Visit [facility] Weight Management Services [address] [place] [address] Anusha Campa, SALES ASSISTANT INSTITUTIONAL SALES-CERTIFIED PEDORTHOTIST [address] [place] [address] Scheduled Procedures Name Priority Associated Diagnoses Date/Ti me ESOPHAGOGASTRODUODENOSCOPY ( EGD) BIOPSY Status post bariatric surgery 04/25/2024 9:44 AM CDT documented as of this encounter Visit Diagnoses Not on filedocumented in this encounter Care Teams Customer Experience Intern Relationship Specialty Start Date End Date Betty Rodriguez MD [address] [place] [phone] PCP - General Internal Medicine 09/02/22 documented as of this encounter
--- OUTSIDE RECORDS SUMMARY | 2024-02-06 01:12 | XMS_ITS | Encounter Summary ---
Author Organization [facility] Address [address] [place] [address] Care Team Providers Care Filter Press Operator Name Role Phone Betty Rodriguez MD Primary Care Provider [phone] Encounter Details Date Type Department Care Team (Late st Contact Info) Description 01/05/2023 1:00 PM INVENTORY AUDITOR Office Visit [facility] Weight Management Services [address] [place] [phone] Morbid obesity with BMI of 40.0-44.9, adult (HCC) (Primary Dx) Social History Tobacco Use Types [...] as of this encounter Progress Notes * Chula Truong, BRENT/BRITTANY - 01/05/2023 12:37 PM CST MEDICAL NUTRITION THERAPY Weight Management Services Bariatric Pre-Op Education Class Date: 01/05/2023 Patient: Jayesh Anderson Date of : 1955 (67 year old) PCP Physician: Betty Rodriguez MD Referring Physician: Zoe Time Class Began: 1238 Time Class Ended: 1314 Height: 6' Current Weight: 318.6# Weight Change From Last Visit: down 4.8# Pt seen in group setting for bariatric pre-operative nutrition education. Basic nutrition, phase I bariatric diet principles and diet progression, approved protein supplementation, nutrient deficiencies and supplementation, possible complications, and keys for success were discussed. Demonstrated proper way to drink to prevent swallowing air. Reviewed answers to pre-surgery quiz and signed for completion. Quiz to be further reviewed by surgeon at pre-op visit later today. Pt's compliance is expected to be fair. Barriers were not identified at this time. RD encouraged ptcontact office with any questions or concerns before surgery. Pt was assured that regular follow-upwith RD in the hospital post-op and at outpatient visits would be provided and encouraged. RD available as needed between scheduled appointments. Quiz Procedure: VSG How long in hospital: 1 night Possible Post Op Complications: bleeding, infection, PNA, blood clots, vitamin/mineral deficiencies Necessary to take vitamins after surgery? Yes For how long: Life How many cc/mL in 1 oz?: 30 How many oz can you drink day 1 post op every 30 minutes?: 1 oz How many oz can you drink day 2 post op every 30 minutes?: 2 oz Once d/c, what should you do if you experience any unusual symptoms or pain? Call office, call surgeon, go to ER How will you know when to begin eating foods? When RD tells you it's okay You will be a pt of [facility] for how long? Life Is physical activity after surgery optional or required? Required How often? Ideally 5x/week for 30 minutes/x When can you restart nicotine products after bariatric surgery? Never! Total MNT minutes this calendar year: 75/240 NTORY AUDITOR documented in this encounter Plan of Treatment Upcoming Encounters Date Type Department Care Team (Latest Contact Info) Description 04/25/2024 9:44 AM CDT Hospital Encounter [facility] - [address] [place] [address] Eliana Enriquez MD [address] [place] [address] Surgery General 04/25/2024 9:44 AM CDT - 04/25/2024 10:10 AM CDT Surgery [facility] - [address] [place] [address] Eliana Enriquez MD [address] [place] [address] ESOPHAGOGASTRODUODENOSCOPY WITH BIOPSY 05/03/2024 9:30 AM CDT Office Visit [facility] Health Weight Management Services [address] [place] [address] Eliana Enriquez MD [address] [place] [address] 07/19/2024 9:00 AM CDT Office Visit [facility] Health Weight Management Services [address] [place] [address] Anusha Campa, FUEL TANK SEALER AND TESTER-REHAB OFFICE COORDINATOR [address] [place] [address] 01/18/2025 9:00 AM INVENTORY AUDITOR Clinical Support [facility] Weight Management Services [address] [place] [address] 01/18/2025 9:30 AM INVENTORY AUDITOR Office Visit [facility] Health Weight Management Services [address] [place] [address] Anusha Campa APRN-REHAB OFFICE COORDINATOR [address] [place] [address] Scheduled Procedures Name Priority Associated Diagnoses Date/Ti me ESOPHAGOGASTRODUODENOSCOPY ( EGD) BIOPSY Status post bariatric surgery 04/25/2024 9:44 AM CDT documented as of this encounter Visit Diagnoses Diagnosis Morbid obesity with BMI of 40.0-44.9, adult (HCC)- Primary Status post bariatric surgery Bariatric surgery status documented in this encounter Care Teams Filter Press Operator Relationship Specialty Start Date End Date Betty Rodriguez MD [address] [place] [phone] PCP - General Internal Medicine 09/02/22 documented as of this encounter
--- OUTSIDE RECORDS SUMMARY | 2024-02-06 01:12 | XMS_ITS | Encounter Summary ---
Author Organization [facility] Address [address] [place] [address] Care Team Providers Care Vp Director Of Finance Name Role Phone Betty Rodriguez MD Primary Care Provider [phone] Reason for Visit * Reason Comments Bariatric Surgery Follow-up EGD 12/14/19 23 Encounter Details Date Type Department Care Team (Late st Contact Info) Description 12/24/2022 10:30 AM INSTRUCTIONAL CONSULTANT Office Visit [facility] [address] [place] [phone] Shanel Ware, DELICATESSEN SLICER-QUALITY CONTROL TESTER [address] [place] [phone] Morbid obesity (HCC) (Primary Dx); Vitamin D deficiency; Primary hypertension Social History Tobacco Use Types Packs/Day Years [...] Sign Reading Time Taken Comments Blood Pressure 138/74 12/24/2022 10:15 AM INSTRUCTIONAL CONSULTANT Pulse 76 12/24/2022 10:15 AM INSTRUCTIONAL CONSULTANT Temperature 36.8 ??C (98.2 ??F) 12/24/2022 1 0:15 AM INSTRUCTIONAL CONSULTANT Respiratory Rate 20 12/24/2022 10:1 5 AM INSTRUCTIONAL CONSULTANT Oxygen Saturation 96% 12/24/2022 10: 15 AM INSTRUCTIONAL CONSULTANT Inhaled Oxygen Concentration - - Weight 146.7 kg (323 lb 6.4 oz) 023 10:15 AM INSTRUCTIONAL CONSULTANT Height 182.9 cm (6') 12/24/2022 10:15 AM INSTRUCTIONAL CONSULTANT Body Mass Index 43.86 12/24/2022 10:15 AM INSTRUCTIONAL CONSULTANT documented in this encounter Functional Status Functional [...] Progress Notes * Shanel Ware APRN-CNP - 12/24/2022 10:30 AM CST [facility] [place] [address] . . Date of encounter: No admission date for patient encounter. Provider: PREET Silver Patient: Jayesh Anderson CSN: [id number] Specialty: Bariatric Surgery Date of : 1955 Visit type: Bariatrics Pre-operative follow up Jayesh Anderson 67 year old male was referred by Betty Rodriguez MD for Bariatrics pre-op follow up. Bariatric Preop HPI he was seen in clinic last on 12/01/22. The procedure requested is Sleeve Gastrectomy. Patient is attending support group meeting. The patient has been participating in an online supportgroup. No of support group meeting attended 06/16 Patient is taking 30 grams of proteins supplements daily. Patient is taking 64 oz of fluid per day. Reviewed 24 hour food recall with pt. Opportunities for improvement note: His meal choices are appropriate. Doing 20 minutes of exercise daily. Encouraged pt to work towards goal of 150+ minutes weekly as able. The patient has not been participating in NExT program. Weight change as in weight history below. Weight History: Initial Weight:09/02/2022 Weight: (!) 167.3 [...] Total Wt Loss in lb: 45.4 lb Obesity History Years of being overweight? 40yrs Age of first weight loss attempt? 18 Highest weight as an adult? 320 Goal Weight? 200 Past Medical History: Diagnosis Date ??? HTN (hypertension) Past Surgical History: Procedure Laterality Date ??? COLONOSCOPY WITH POLYPECTOMY N/A 11/12/2022 N/A; COLONOSCOPY with polypectomy ??? ENDOSCOPY, UPPER N/A 11/12/2022 N/A; ESOPHAGOGASTRODUODENOSCOPY with biopsy ??? ENDOSCOPY, UPPER N/A 12/13/2022 N/A; ESOPHAGOGASTRODUODENOSCOPY WITH BIOPSY ??? Lumbar Diskectomy ??? Meniscectomy Bilateral Social History Socioeconomic History ??? Marital status: Spouse name: Not on file ??? Number of children: Not on file ??? Years of education: Not on file ??? Highest education level: Not on file Occupational History ??? Not on file Tobacco Use ??? Smoking status: Never ??? Smokeless tobacco: Never Vaping Use ??? Vaping Use: Never used Substance and Sexual Activity ??? Alcohol use: Yes Comment: occ ??? Drug use: Never ??? Sexual activity: Not on file Other Topics Concern ??? Not on file Social History Narrative ??? Not on file Social Determinants of Health Financial Resource Strain: Not on file Food Insecurity: Not on file Transportation Needs: Not on file Stress: Not on file Housing Stability: Not on file Family History Problem Relation Name Age of Onset ??? Cancer Mother ??? Diabetes; unknown type Mother Outpatient Medications Marked as Taking for the 12/24/22 encounter (Office Visit) with Shanel Ware APRN-CNP Medication Sig ??? atorvastatin (Lipitor) 40 MG tablet Take 1 (one) tablet by mouth at bedtime ??? Coenzyme Q10 (CO Q 10 PO) ??? lisinopril-hydroCHLOROthiazide (Prinzide; Zestoretic) 10-12.5 MG tablet Take 1 (one) tablet by mouth once daily ??? Multiple Vitamins-Minerals (Centrum Silver) TABS Take 1 (one) tablet by mouth daily with food ??? omeprazole (PriLOSEC) 40 MG capsule Take 1 (one) capsule by mouth 2 times daily, before breakfast and supper (Not in a hospital admission) No Known Allergies Objective: Vital Signs: BP 138/74 Pulse 76 Temp 98.2 ??F (36.8 ??C) (Temporal) Resp 20 Ht 1.829 m (6') Wt (!) 146.7 kg (323 lb 6.4 oz) SpO2 96% Weight: (!) 146.7 kg (323 lb 6.4 oz) Height: 182.9 cm (6') Body mass index is 43.86 kg/m??. Physical Exam: Constitutional: Alert, awake and oriented without any apparent discomfort. Eyes: Anicteric. No subconjunctival hemorrhage. Neck Exam: Supple. Trachea midline. No thyromegaly. No cervical or supraclavicular lymphadenopathy. Respiratory: Lungs were clear to auscultation bilaterally. No rales, rhonchi. Cardiovascular: Regular rate and rhythm. No rub, murmur or gallop Abdomen: Abdomen was obese, soft, non tender, non distended. No palpable visceromegaly. No palpableventral hernias. Skin: [place] and moist. No ulcers, rashes, or lesions. Extremities: Well perfused. No gross joint deformity noted Neurological: Cranial nerves 2-12 were grossly intact. Psychiatric: The patient's mood and affect appeared to be appropriate Labs No results for input(s): WBC , RBC , HGB , HCT , PLTCOUNT in the last 80482 hours. No results for input(s): SODIUM , POTASSIUM , CO2 , BUN , CREATININE in the last 84618 hours. Invalid input(s): CLORIDE No results for input(s): GLUCOSE in the last 75265 hours. No results for input(s): AST , ALT in the last 24822 hours. No results for input(s): LDL , HDL , TRIG , TSH in the last 06496 hours. No results for input(s): HGBA1C in the last 32923 hours. No results for input(s): PT , PTT , INR , TSH in the last 92522 hours. No results for input(s): TSH in the last 81388 hours. No results for input(s): IRON in the last 26829 hours. No results for input(s): RLYVPNDP03 in the last 37980 hours. No results for input(s): VITAMINA in the last 15176 hours. No results for input(s): IRON in the last 67924 hours. No results for input(s): VITK1 in the last 67270 hours. No results for input(s): [id number] in the last 30439 hours. No results for input(s): ALPHATOCOPH in the last 76189 hours. No results for input(s): GAMMATOCOPH in the last 77741 hours. No results for input(s): MAGMGDL in the last 57390 hours. No results for input(s): PHOS in the last 94445 hours. Some lab results will be in paper format so may be scanned in the EMR. Imaging studies No results found. Some Imaging studies results will be in paper format so may be scanned in the EMR. Assessment and Plan Assessment: Morbid Obesity Patient was recommended to optimize pre op weight loss with liquid protein diet replacement therapy. All different dietary supplements were discussed. Patient was also recommended to optimize exercise and to be engaged in an exercise program. I will refer??him??to a dietitian for diet counseling and NExT program / an exercise log. ?? History of Gastric Ulcer He underwent EGD with Dr. Enriquez 11/12/22. Findings: normal duodenum, 2 antral ulcers seen, largest 2 mm, no hiatal hernia, normal Z-line, normal esophagus. Pathology: Antrum, biopsy: Fragments of antral mucosa with focal mild chronic inflammation and intestinal metaplasia. No dysplasia. No acute inflammation. Negative for H pylori. He was recommended to avoid NSAIDs and avoid smoking. He was recommended repeat EGD in 4-6 weeks to demonstrate resolution prior to bariatric surgery. He is scheduled 12/13/2022. He underwent repeat EGD by Dr. Enriquez 12/13/22 which was normal. Findings: ??normal duodenum, normal gastric antrum, ulcers healed, no hiatal hernia, normal Z-line, normal esophagus, normal cords. Pathology: Gastric biopsies, antrum: Chronic gastritis with intestinal metaplasia, negative for H pylori. ?? Hypertension?? Patient is currently taking lisinopril/??hydrochlorothiazide for this.?His??blood pressure was 130/74 today. ??Advised patient to monitor blood pressure daily follow-up with primary care provider if blood pressure remains 140/90 or greater.?Continue with the anti-hypertensive medication. Primary to optimize for now. ??Patient was recommended to avoid diuretics during perioperative period to avoid perioperative dehydration and renal failure. ??Beta blockers and direct vasodilators are preferable agents for the perioperative period. ?? Sleep apnea Patient had a sleep study which showed sleep apnea. Weight loss could help with resolving this condition as well. Patient was encouraged to utilize CPAP/ BiPAP as pre recommended settings ?? Hypercholesterolemia?? Patient currently taking Lipitor 40 mg for this .Continue medications as prescribed.?Lipid profile normal on initial testing. ?? Colon cancer screening He denies family history of colon cancer.?He underwent colonoscopy by Dr. Enriquez 11/12/22. Findings: several benign-appearing colon polyps removed, sigmoid colon diverticulosis Pathology: Ascending polyp, polypectomy/adenoma. Sigmoid polyps: Polypoid colonic mucosa with a mild lamina propria chronic inflammation. Recommended repeat colonoscopy in 3 years 10/2025. ?? Abnormal Thyroid On initial lab testing TSH was abnormal 4.05. He has follow up with PCP this month. ?? Vitamin D deficiency He had low vitamin D on initial testing. ??He completed supplementation per protocol. ??He has orders to recheck vitamin D. ?? Umbilical hernia I discussed with the patient his incarcerated umbilical hernia. ??He is interested in weight loss surgery. ??Will proceed with weight loss surgery 1st and then umbilical hernia repair if he becomes symptomatic in the future. ?? VTE risk VTE risk assessment completed per [facility] assessment tool ([employer]). ??Patient is noted to be of low risk for post-operative VTE event with a score of 14. ??Plan for standard DVT prophylaxis following procedure. ?? Elevated hemoglobin He was noted to have elevated hemoglobin on initial lab testing??09/07/22.?Repeat CBC 1 month. ??If hemoglobin is repeated and it remains greater than 18, Dr. Enriquez wants him referred to hematology. ??Repeat hemoglobin 10/26/22 was 17.2. ?? Consults and Test ordered:?? Cardiac consult ??for risk assessment and optimization before surgery: ??Dr. Oseas Rick cleared 11/03/22 Dietitian consult for diet counseling:??Cleared 10/13/22 Psychology/psychiatry consult for pre-operative clearance.??Cleared 10/13/22.?? Blood work to evaluate for any vitamin and mineral deficiency.??Completed 09/07/22 Repeat vitamin D: He has orders to complete VTE Risk Assessment: Completed and scanned into [employer].?? EKG: Completed 09/08/22 Chest Xray.??Completed 09/07/22 EGD/Colonoscopy:?completed??11/12/22 Repeat EGD due to ulcer: Completed 12/13/22. ?? Follow up:??Will see me/PA/SUGAR PLANTATION MANAGER in 1 month. He has completed his requirements. He is ready for final review and submission insurance. He verbalized understanding and is agreeable to this plan after shared decision making with patient. Shanel Ware APRN-QUALITY CONTROL TESTER CC: Betty Rodriguez MD RUCTIONAL CONSULTANT documented in this encounter Plan of Treatment Upcoming Encounters Date Type Department Care Team (Latest Contact Info) Description 04/25/2024 9:44 AM CDT Hospital Encounter [facility] [address] [place] [address] Eliana Enriquez MD [address] [place] [phone] Surgery General 04/25/2024 9:44 AM CDT - 04/25/2024 10:10 AM CDT Surgery [facility] - [address] [place] [address] Eliana Enriquez MD [address] [place] [phone] ESOPHAGOGASTRODUODENOSCOPY WITH BIOPSY 05/03/2024 9:30 AM CDT Office Visit [facility] [address] [place] [phone] Eliana Enriquez MD [address] [place] [phone] 07/19/2024 9:00 AM CDT Office Visit [facility] [address] [place] [facility] [phone] Anusha Campa APRN-QUALITY CONTROL TESTER [address] [facility] [place] [address] 01/18/2025 9:00 AM INSTRUCTIONAL CONSULTANT Clinical Support [facility] [address] [facility] [place] [address] 01/18/2025 9:30 AM INSTRUCTIONAL CONSULTANT Office Visit [facility] [address] [place] [phone] Anusha Campa, DELICATESSEN SLICER-QUALITY CONTROL TESTER [address] [place] [address] Scheduled Procedures Name Priority Associated Diagnoses Date/Ti me ESOPHAGOGASTRODUODENOSCOPY ( EGD) BIOPSY Status post bariatric surgery 04/25/2024 9:44 AM CDT documented as of this encounter Visit Diagnoses Diagnosis Morbid obesity (HCC)- Primary Morbid obesity Vitamin D deficiency Primary hypertension Unspecified essential hypertension Status post bariatric surgery Bariatric surgery status documented in this encounter Care Teams Vp Director Of Finance Relationship Specialty Start Date End Date Betty Rodriguez MD [address] [place] [phone] PCP - General Internal Medicine 09/02/22 documented as of this encounter
--- OUTSIDE RECORDS SUMMARY | 2024-02-06 01:12 | XMS_ITS | Encounter Summary ---
Author Organization [facility] Address [address] [place] [address] Care Team Providers Care Slitter Helper Name Role Phone Betty Rodriguez MD Primary Care Provider [phone] Encounter Details Date Type Department Care Team (Latest Contact Info) Description 02/01/2023 9:00 AM VETERINARIAN LABORATORY ANIMAL CARE Clinical Support [facility] [address] [place] [phone] S/P laparoscopic sleeve gastrectomy Social History Tobacco [...] - Inhaled Oxygen Concentration - - Weight 134.7 kg (296 lb 14.4 oz) 02/01/2023 8:00 AM [facility] C[facility] Height 182.9 cm (6' 0.01 ) 02/01/2023 8:00 AM CS T Body Mass Index 40.26 02/01/2023 8:00 AM [facility] C[facility] documented in this encounter Functional Status Functional [...] this encounter Progress Notes * Rosalba Lewis, RD/LDN - 02/01/2023 9:00 AM CST MEDICAL NUTRITION THERAPY Weight Management Services Bariatric Surgery Follow-Up Session Number: (2 weeks s/p VSG) Session Date: 02/01/23 Patient: Jayesh Anderson Date of : 1955 (67 year old) PCP Physician: Betty Rodriguez MD Referring Physician: Zoe NUTRITION ASSESSMENT Primary Diagnoses/Co-morbidities: Morbid Obesity Secondary Diagnoses/Co-morbidities: Hypertension (GERD, SA) Have you seen a dietitian?: Yes Pertinent Labs: reviewed- vit D WNL Pertinent Medications: reviewed Current V/M Supplements: DIAMOND palma MV BID- pt prefers 2 instead of 1/day, 600 mg calcium citrate BID Eating History Are you following a [...] many times do you exercise each week?: 7 How many minutes of exercise each time?: (40-60) Weight History Height: 182.9 cm (6' 0.01 ) Initial Program Weight: 368.8# BMI 50.01 Current Weight: 134.7 kg (296 lb 14.4 oz) Weight Method : Standing BMI (Calculated): 40.26 Has your weight changed since last visit?: Loss # (5#) Total Program Weight Loss: 71.9# Pt seen for nutrition f/u. Pt is 2 weeks s/p VSG by Dr. Enriquez. Pt's weight is down 5# since lastvisit, down 71.9# since beginning program. Pt reports drinking 3 protein shakes/day and at least 1 protein water. Pt also consuming Propel, Gatorade Zero, broth, SF jello, yogurt. Pt reports drinkingvery little plain water d/t no flavor. Pt notes total 120-130 oz/day. Pt denies any GI concerns. Ptreports walking 10-12 min 4-5x/day for exercise- bought treadmill for days when weather is bad. Reviewed food recall and vitamins. 24 Hour Food Recall (Current) Breakfast - protein shake- Premier Lunch - protein shake Dinner - protein shake Snacks - protein water- Protein 2O, 3 T yogurt Beverages - Gatorade Zero, Propel, water NUTRITION DIAGNOSIS Diagnosis: Overweight/obesity Related to: (hx excessive kcal intake) As evidenced by: BMI 40.26. NUTRITION INTERVENTION Interventions: Motivational interviewing;Goal setting;Self-monitoring;Problem solving;Recommended [...] v/u. Pt is ready to begin phase II. Reviewed phase II foods, portion sizes, max intake of 1/2 c/meal, limit CHOs to <1/4 c/day and reinforced introducing new foods one at a time to assess tolerance. Reinforced importance of 2 protein shakes daily as meals to meet nutrition needs and promote weight loss. Reinforced not eating and drinking together. Recommended pt begin chewable MV BID or bariatric MV daily and 500 mg calcium citrate BID at least an hour apart from MV per ASMBS guidelines. Recommended gradually increasing physical activity to 150+ minutes weekly to promote weight loss and for cardiovascular benefits. Pt v/u. External Barriers to Change: none NUTRITION MONITORING/EVALUATION Nutrient Needs: Goals: Nutrition Goal #1: begin phase 2 Nutrition Goal #2: 80+ g protein daily [...] Adherence: Often Demonstrated Session Information Session Date: 02/01/23 Session beginning time: 899 Session ending time: 910 Session total minutes: 11 Minutes Teaching Method: Explanation;Demonstration;Teach Back Next visit: (1 month post op) Total MNT minutes this calendar year: Nutritional Review ?? Cleared, additional RD visits required pre-op ___ ?? Cleared, no additional RD visits required pre-op ___ ?? Not cleared, additional RD visit(s) required pre-op ___ ?? Continue with post op RD visits per protocol _X__ Rosalba Lewis RD/LDN [facility] documented in this encounter Plan of Treatment Upcoming Encounters Date Type Department Care Team (Latest Contact Info) Description 04/25/2024 9:44 AM CDT Hospital Encounter [facility] Op [address] [place] [address] Eliana Enriquez MD [address] [place] [phone] Surgery General 04/25/2024 9:44 AM CDT - 04/25/2024 10:10 AM CDT Surgery [facility] - [address] [place] [address] Eliana Enriquez MD [address] [place] [phone] ESOPHAGOGASTRODUODENOSCOPY WITH BIOPSY 05/03/2024 9:30 AM CDT Office Visit [facility] [address] [place] [phone] Eliana Enriquez MD [address] [place] [address] 07/19/2024 9:00 AM CDT Office Visit [facility] Management Services [address] [place] [address] Anusha Campa, LINK AND LINK KNITTING MACHINE OPERATOR-ASSEMBLER MUSICAL EQUIPMENT [address] [place] [address] 01/18/2025 9:00 AM [facility] Clinical Support [facility] [address] [place] [address] 01/18/2025 9:30 AM [facility] Office Visit [facility] Management Services [address] [place] [address] Anusha Campa, LINK AND LINK KNITTING MACHINE OPERATOR-ASSEMBLER MUSICAL EQUIPMENT [address] [place] [address] Scheduled Procedures Name Priority Associated Diagnoses Date/Ti me ESOPHAGOGASTRODUODENOSCOPY ( EGD) BIOPSY Status post bariatric surgery 04/25/2024 9:44 AM CDT documented as of this encounter Visit Diagnoses Diagnosis S/P laparoscopic sleeve gastrectomy- Primary Status post bariatric surgery Bariatric surgery status documented in this encounter Care Teams Slitter Helper Relationship Specialty Start Date End Date Betty Rodriguez MD [address] [place] [address] PCP - General Internal Medicine 09/02/22 documented as of this encounter
--- OUTSIDE RECORDS SUMMARY | 2024-02-06 01:12 | XMS_ITS | Encounter Summary ---
Author Organization [facility] Address [address] [place] [address] Care Team Providers Care Shipping Clerk Packing Name Role Phone Betty Rodriguez MD Primary Care Provider [phone] Reason for Visit * Reason Comments Refill Request Encounter Details Date Type Department Care Team (Late st Contact Info) Description 01/09/2023 Refill [facility] Services [address] [place] [phone] Anusha Campa, NEW ACCOUNTS CLERK-TROUBLE LOCATOR TEST DESK [address] [place] [address] Refill Request Social History Tobacco Use Types [...] Description 04/25/2024 9:44 AM CDT Hospital Encounter [facility] [address] [place] [address] Eliana Enriquez MD [address] [place] [phone] Surgery General 04/25/2024 9:44 AM CDT - 04/25/2024 10:10 AM CDT Surgery [facility] [address] [place] [address] Eliana Enriquez MD [address] [place] [address] ESOPHAGOGASTRODUODENOSCOPY WITH BIOPSY 05/03/2024 9:30 AM CDT Office Visit [facility] Services [address] [place] [address] Eliana Enriquez MD [address] [place] [address] 07/19/2024 9:00 AM CDT Office Visit [facility] Services [address] [place] [address] Anusha Campa APRN-TROUBLE LOCATOR TEST DESK [address] [place] [address] 01/18/2025 9:00 AM JUNIOR PHP DEVELOPER Clinical Support [facility] Management Services [address] [place] [address] 01/18/2025 9:30 AM JUNIOR PHP DEVELOPER Office Visit [facility] [address] [place] [phone] Anusha Campa APRN-TROUBLE LOCATOR TEST DESK [address] [place] [address] Scheduled Procedures Name Priority Associated Diagnoses Date/Ti me ESOPHAGOGASTRODUODENOSCOPY ( EGD) BIOPSY Status post bariatric surgery 04/25/2024 9:44 AM CDT documented as of this encounter Visit Diagnoses Diagnosis Vitamin D deficiency Status post bariatric surgery Bariatric surgery status documented in this encounter Care Teams Shipping Clerk Packing Relationship Specialty Start Date End Date Betty Rodriguez MD [address] [place] [address] PCP - General Internal Medicine 09/02/22 documented as of this encounter
--- OUTSIDE RECORDS SUMMARY | 2024-02-06 01:12 | XMS_ITS | Encounter Summary ---
Author Organization [facility] Address [address] [place] [address] Care Team Providers Care [employer] Psychological Examiner Name Role Phone Betty Rodriguez MD Primary Care Provider [phone] Encounter Details Date Type Department Care Team (Latest Contact Info) Description 01/17/2023 Travel Social History Tobacco Use Types Packs/Day Years [...] Description 04/25/2024 9:44 AM CDT Hospital En[facility] [address] [place] [address] Eliana Enriquez MD [address] [place] [address] Surgery General 04/25/2024 9:44 AM CDT - 04/25/2024 10:10 AM CDT Surgery [facility] [address] [place] [address] Eliana Enriquez MD [address] [place] [address] ESOPHAGOGASTRODUODENOSCOPY WITH BIOPSY 05/03/2024 9:30 AM CDT Office Visit [facility] [address] [place] [address] Eliana Enriquez MD [address] [place] [address] 07/19/2024 9:00 AM CDT Office Visit [facility] [address] [place] [address] Anusha Campa, [employer] PURCHASE AND SALE CLERK-[employer] OPERATOR [address] [place] [address] 01/18/2025 9:00 AM PATTERN FILER Clinical Support [facility] [address] [place] [address] 01/18/2025 9:30 AM PATTERN FILER Office Visit [facility] [address] [place] [address] Anusha Campa, [employer]ER[employer] PURCHASE AND SALE CLERK-[employer] OPERATOR [address] [place] [address] Scheduled Procedures Name Priority Associated Diagnoses Date/Ti me ESOPHAGOGASTRODUODENOSCOPY ( EGD) BIOPSY Status post bariatric surgery 04/25/2024 9:44 AM CDT documented as of this encounter Visit Diagnoses Not on filedocumented in this encounter Care Teams School Psychological Examiner Relationship Specialty Start Date End Date Betty Rodriguez MD [address] [place] [address] PCP - General Internal Medicine 09/02/22 documented as of this encounter
--- OUTSIDE RECORDS SUMMARY | 2024-02-06 01:12 | XMS_ITS | Encounter Summary ---
Author Organization [facility] Address [address] [place] [address] Care Team Providers Care Patent Lawyer Name Role Phone Betty Rodriguez MD Primary Care Provider [phone] Reason for Visit * Auth/Cert (Routine) Specialty Diagnoses / Procedures Referred By Contac t Referred To Contact Diagnoses Morbid obesity (HCC) Morbid obesity (CMS/HCC) [E66.01] Procedures MD LAP SLEEVE GASTRECTOMY LAPAROSCOPIC GASTRECTOMY (LONGITUDINAL/SLEEVE) Referral ID Status Reason Start Date Expiration Date Visits Re quested Visits Authorized [id number] 1 1 Encounter Details Date Type Department Care Team (Late st Contact Info) Description 01/17/2023 9:25 AM BRAKE COUPLER DINKEY - 01/17/2023 11:33 AM BRAKE COUPLER DINKEY Surgery [facility] - [facility] [address] [place] [address] Eliana Enriquez MD [address] [place] [phone] LAPAROSCOPIC SLEEVE GASTRECTOMY Surgery Details Date/Time Status Location OR Service Patient Class Case Class Case Type Trauma Case? 01/17/2023 9:25 AM Posted [facility] OR 2 Bariatric Photography Editor Admit Surgical Elective > 5 days Panel 1 Procedure LRB Anes Op Region Wound Class Comments LAPAROSCOPIC SLEEVE GASTRECTOMY N/A General Abdomen Clean Contaminated Surgeon Surgeon Role Service Panel Eliana Enriquez MD Primary Bariatric 1 Special Needs ARRIVAL TIME:0730 documented in this encounter Social History Tobacco [...] Sign Reading Time Taken Comments Blood Pressure 130/72 01/17/2023 11:30 AM BRAKE COUPLER DINKEY Pulse 74 01/17/2023 11:30 AM BRAKE COUPLER DINKEY Temperature 36.3 ??C (97.3 ??F) 01/17/2023 1 1:19 AM BRAKE COUPLER DINKEY Respiratory Rate 26 01/17/2023 11:3 0 AM BRAKE COUPLER DINKEY Oxygen Saturation 98% 01/17/2023 11: 30 AM BRAKE COUPLER DINKEY Inhaled Oxygen Concentration - - Weight 141.7 kg (312 lb 6.3 oz) 01/17/2023 7:37 AM BRAKE COUPLER DINKEY Height 182.9 cm (6') 01/17/2023 7:37 AM BRAKE COUPLER DINKEY Body Mass Index 42.37 01/17/2023 7:37 AM BRAKE COUPLER DINKEY documented in this encounter Functional Status Functional [...] No 01/17/2023 documented as of this encounter Discharge Summaries * Anusha Campa, MOHINI-PANEL EDGE PAINTER - 01/18/2023 2:18 PM CST Discharge Summary Pt Name: Jayesh Anderson DATE OF ADMISSION : 01/17/2023 DATE OF DISCHARGE : 01/18/2023 PRIMARY CARE PHYSICIAN : Betty Rodriguez MD ADMISSION DIAGNOSIS: Refractory morbid obesity with BMI of Body mass index is 42.37 kg/m??. and comorbid conditions including Sleep apnea DISCHARGE DIAGNOSES: Same as admission diagnosis PROCEDURES PERFORMED: Procedure(s): LAPAROSCOPIC SLEEVE GASTRECTOMY (N/A) 01/17/2023 BRIEF HISTORY AND HOSPITAL COURSE: This is a 67 year old old male who was seen in the office for consultation for bariatric surgery. The patient underwent a complete preoperative evaluation and was felt to be a good candidate for bariatric intervention given her history of refractory morbid obesitywith BMI of Body mass index is 42.37 kg/m??. and comorbid conditions including Sleep apnea. After the different options and aspects of surgery were discussed with the patient it was decided to proceed with the Procedure(s): LAPAROSCOPIC SLEEVE GASTRECTOMY (N/A) 01/17/2023. Please read the operating report for details of the procedure. The patient postoperatively was transferred to the floor and was given hydration with LR at 150 ml/hr. Urine output was closely monitored and IV fluids adjusted. Patient was treated with albuterol and Atrovent nebulization q.4 hours. Incentive spirometer Q4. Patient was given scheduled Protonix IV and Reglan for the first 12 hours. he was given heparin 5000 Subcu starting postoperative day #1 at 9 a.m. and SCD were placed post OP for deep vein thrombosis prophylaxis. he had IV acetaminophen andIV fentanyl p.r.n. on the day of surgery for pain control and later on changed to Roxicet PO in postoperative day #1. Patient was started on metoprolol 5 IV q.4 h and Hydralazine 10 mg q.4 h PRN for blood pressure control as well. Patient was also given Thiamin 100 mg IV daily, electrolytes were replaced as needed. Patient also had blood sugars controlled with insulin sliding scale. On postoperative day #1 the patient was observed. Vital signs were found to be stable. Lab work wasreviewed and was found to be stable. he was advanced to bariatric phase 1 diet and he was advanced to 30 cc every 1/2 hour. The patient was tolerating liquids well. Subjective Complaints: none + flatus, no fever. Denies: chest pain, shortness of breath Activity: up adlib Diet: liquids Objective BP 119/66 Pulse 57 Temp 98.2 ??F (36.8 ??C) Resp 16 Ht 1.829 m (6') Wt (!) 141.7 kg (312 lb 6.3 oz) SpO2 96% Weight: (!) 141.7 kg (312 lb 6.3 oz) Height: 182.9 cm (6') Body mass index is 42.37 kg/m??. Physical Exam General appearance: alert, cooperative, no distress Lungs: breath sounds normal and symmetric; no rales or wheezes Abdomen: soft without mass, non-tender, with normal bowel sounds Wound: incision: clean and dry, no erythema Extremities: no clubbing, cyanosis or edema Labs and Imaging Results for orders placed or performed during the hospital encounter of 01/17/23 (from the past 24 hour(s)) GLUCOSE - POINT OF CARE Result Value Ref Range Glucose WB/POC 111 70 - 125 mg/dL Specimen Type Arterial Assessment/Plan Procedure(s): LAPAROSCOPIC SLEEVE GASTRECTOMY (N/A) 01/17/2023 Post op day #1 Post OP - Doing well. Pain management : Minimize IV, continue PO. Respiratory management: Aggressive I/S, Resp treatments PRN. Cardiovascular: Monitor vital signs. Antihypertensives as needed. GI: Advance to bariatric phase 1 liquid protein diet. Continue high-dose PPI. Zofran as needed for nausea. Endocrine: Continue sliding scale insulin. Fluid management: cap IV Wound care: May leave incisions open to air. Abdominal binder as needed for comfort. Antibiotics: discontinue Activity: Ambulate as much as possible. DVT/PUD prophylaxis:DVT - Venous Compression Device, heparin 5000 Q 8. Since the patient was tolerating Bariatric Phase 1 diet and was ambulating and pain was under control with Roxicet it was decided to discharge the patient home. DISCHARGE ACTIVITIES: No heavy lifting more than 10 pounds for 2 week. he can take a shower. No swimming or tub bath for 4 weeks. Need to keep walking at home every 2-4 hrs while wake for DVT prevention. DISCHARGE DIET: Bariatric clear liquid diet for 2 weeks to be taken at 60 cc every ?? hour from post operative day 2. FOLLOW UP: Follow up with Dr. Enriquez in 1 week and Bariatric Dietitian as scheduled in 2 weeks. Contact me if patient has high fever more than 101.5, increasing abdominal pain, worsening nausea, vomiting, calf pain and excessive feeling of tiredness. DISCHARGE MEDICATIONS: Medication List START taking these medications acetaminophen 500 MG tablet Commonly known as: TYLENOL Pt is to take 2 tabs po every 6 hours for basal pain docusate sodium 100 MG capsule Commonly known as: Colace Take 1 (one) capsule by mouth 2 times daily ursodiol 300 MG capsule Commonly known as: Actigall Take 1 (one) capsule by mouth 2 times daily for 90 days Do Not start until 1 week post op. Reasons:Post op laproscopic sleeve gastrectomy CONTINUE taking these medications Centrum Silver Tabs omeprazole 40 MG capsule Commonly known as: PriLOSEC Take 1 (one) capsule by mouth daily before breakfast ondansetron (disintegrating) 4 MG tablet Commonly known as: Zofran ODT Take 1 (one) tablet by mouth every 4 hours as needed for Nausea/Vomiting Allow tablet to dissolve on the tongue oxyCODONE (immediate release) 5 MG tablet Commonly known as: Roxicodone Take 1 to 2 tabs prn every 4 hours for pain. Max of 6 tabs in 24hrs. DonorPro capsule Take 1 (one) capsule by mouth once daily STOP taking these medications scopolamine 1 MG patch Commonly known as: Transderm-Scop vitamin D (ergocalciferol) 1.25 MG (98519 UT) capsule Commonly known as: Drisdol CONDITION ON DISCHARGE: Stable. DISPOSITION: Home with self care Anusha Campa, CHARGE MASTER SPECIALIST-PANEL EDGE PAINTER CC: Betty Rodriguez MD E COUPLER DINKEY documented in this encounter Medications at Time of Discharge Medication Sig Dispensed Refills Start Date End Date acetaminophen (TYLENOL) 500 MG tabletIndications:Bar iatric surgery status Pt is to take 2 tabs po every 6 hours for basal pain 40 tablet 01/10/2023 05/11/2023 docusate sodium (Colace) 100 MG capsuleIndications:Ba riatric surgery status Take 1 (one) capsule by mouth 2 times daily 30 capsule 01/10/2023 05/11/2023 Multiple Vitamins-Minerals (Centrum Silver) TABS Take 1 (one) tablet by mouth daily with food 02/18/2023 omeprazole (PriLOSEC) 40 MG capsuleIndications:Ba riatric surgery status Take 1 (one) capsule by mouth daily before breakfast 30 capsule 3 01/10/2023 05/11/2023 ondansetron, disintegrating, (Zofran ODT) 4 MG tabletIndications:Bar iatric surgery status Take 1 (one) tablet by mouth every 4 hours as needed for Nausea/Vomiting Allow tablet to dissolve on the tongue 30 tablet 2 01/10/2023 02/09/2023 oxyCODONE, immediate release, (Roxicodone) 5 MG tabletIndications:Bar iatric surgery status Take 1 to 2 tabs prn every 4 hours for pain. Max of 6 tabs in 24hrs. 8 tablet 01/10/2023 05/11/2023 Probiotic Product (DonorPro) capsuleIndications:Ba riatric surgery status Take 1 (one) capsule by mouth once daily 30 capsule 3 01/10/2023 05/11/2023 ursodiol (Actigall) 300 MG capsuleIndications:Po st op laproscopic sleeve gastrectomy Take 1 (one) capsule by mouth 2 times daily for 90 days Do Not start until 1 week post op. Reasons: Post op laproscopic sleeve gastrectomy 60 capsule 2 01/10/2023 05/11/2023 documented as of this encounter Progress Notes * Mary Bass RN - 01/18/2023 9:50 AM CST Care Management Initial Assessment Met with: Patient Patient's orientation/cognition: Alert, Mood: Calm Lives with:: Spouse Social Conditions: Over age 65 Community Resources currently in use?: No Physical Limitations: None Requires assistance with:: None Medical Conditions: On 7 or more medications Equipment at Home: CPAP Preferred Pharmacy [facility] - [address] [id number] 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 Consult Case Management if discharge planning needs arise. Anticipated Discharge Plan: Anticipated Discharge Date: 01/18/23 Anticipated Discharge Date discussed with pt and/or family (yes or no)? yes Anticipated level of care at discharge: Home. Anticipated level of care provider: None Patient/Family provided with list of resources? Yes Reason for provider choice: Pt. choice - Pt. choice [facility] Prescreen sent (if applicable/date): na Preferred provider/high quality network list given (yes or no) no List DME pt. requires but does not have.: None Care Management Contact information given to: Patient Comments/Follow-up needs: Return home. Has PCP and insurance. Denies HH or DME needs. Spouse to transport. E COUPLER DINKEY * Rere Villarreal RN - 01/18/2023 12:58 AM CST Problem: Ineffective breathing pattern related to obstructive sleep apnea Goal: Maintains optimal sleep pattern, as evidenced by relaxed breathing at normal rate and depth. Outcome: Progressing Goal: Adheres to CPAP (Continuous Positive Airway Pressure) device regimen as prescribed. Outcome: Progressing Problem: Sleep deprivation related to sleep apnea. Goal: Achieves restful, refreshing sleep pattern. Outcome: Progressing Problem: Pain/Discomfort Goal: Patient exhibits reduced pain/discomfort as evidenced by pain scores Outcome: Progressing Goal: Patient uses pharmacological and non-pharmacological pain management strategies. Outcome: Progressing Goal: Patient verbalizes acceptable level of pain relief and ability to engage in desired activity. Outcome: Progressing E COUPLER DINKEY * Yelena Pereira RCP - 01/17/2023 7:06 PM CST Problem: Ineffective breathing pattern related to obstructive sleep apnea Goal: Adheres to CPAP (Continuous Positive Airway Pressure) device regimen as prescribed. Note: Respiratory effort will be within normal limits, as oxygenation will be assessed, with oxygenadministered and titrated as ordered by the physician. Pt wears home cpap nightly E COUPLER DINKEY documented in this encounter H&P Notes * Eliana Enriquez MD - 01/17/2023 7:53 AM CST Admit Date: 01/17/23 This patient? s prior H&P was reviewed, the patient was examined and no change has occurred in the patient's condition since the prior H&P was completed. Cardiovascular regular rate. Lungs clear bilateral. Eliana Enriquez MD E COUPLER DINKEY Source Note - Shanel Ware APRN-CNP - 12/24/2022 10:30 AM BRAKE COUPLER DINKEY [facility] [place] [address] . . Date of encounter: No admission date for patient encounter. Provider: PREET Silver Patient: Jayesh Anderson CSN: [id number] Specialty: Bariatric Surgery Date of : 1955 [...] No palpable visceromegaly. No palpableventral hernias. Skin: [place] and moist. No ulcers, rashes, or lesions. Extremities: Well perfused. No gross joint deformity noted Neurological: Cranial nerves 2-12 were grossly intact. Psychiatric: The patient's mood and affect appeared to be appropriate Labs No results for input(s): WBC , RBC , HGB , HCT , PLTCOUNT in the last 50366 hours. No results for input(s): SODIUM , POTASSIUM , CO2 , BUN , CREATININE in the last 50432 hours. Invalid input(s): CLORIDE No results for input(s): GLUCOSE in the last 96890 hours. No results for input(s): AST , ALT in the last 04386 hours. No results for input(s): LDL , HDL , TRIG , TSH in the last 33555 hours. No results for input(s): HGBA1C in the last 17917 hours. No results for input(s): PT , PTT , INR , TSH in the last 65134 hours. No results for input(s): TSH in the last 51066 hours. No results for input(s): IRON in the last 35933 hours. No results for input(s): [id number] in the last 93958 hours. No results for input(s): VITAMINA in the last 73361 hours. No results for input(s): IRON in the last 18685 hours. No results for input(s): VITK1 in the last 94932 hours. No results for input(s): [id number] in the last 83822 hours. No results for input(s): ALPHATOCOPH in the last 54350 hours. No results for input(s): GAMMATOCOPH in the last 07168 hours. No results for input(s): MAGMGDL in the last 37730 hours. No results for input(s): PHOS in the last 35559 hours. Some lab results will be in [...] VTE risk VTE risk assessment completed per [place] [facility] assessment tool (SocialDiabetes). ??Patient is noted to be of low [...] VTE Risk Assessment: Completed and scanned into media.?? EKG: Completed 09/08/22 Chest Xray.??Completed 09/07/22 EGD/Colonoscopy:?completed??11/12/22 Repeat EGD due to ulcer: Completed 12/13/22. ?? Follow up:??Will see me/PA/HYDRO TECHNICIAN in 1 month. He has completed his requirements. He is ready for final review and submission insurance. He verbalized understanding and is agreeable to this plan after shared decision making with patient. Shanel Ware APRN-PANEL EDGE PAINTER CC: Betty Rodriguez MD E COUPLER DINKEY * Eliana Enriquez MD - 01/17/2023 7:53 AM CST Admit Date: 01/17/23 This patient? s prior H&P was reviewed, the patient was examined and no change has occurred in the patient's condition since the prior H&P was completed. Eliana Enriquez MD E COUPLER DINKEY Source Note - Eliana Enriquez MD - 01/13/2023 11:47 [address]RAKE COUPLER DINKEY [facility] at [address] [address] . . Date of encounter: No admission date for patient encounter. Provider: Eliana Enriquez MD Patient: Jayesh Anderson CSN: [id number] Specialty: Bariatric Surgery Date of : 1955 Visit type: Bariatric Pre Operative Final History and Physical This 67 year old male patient was referred by Betty Rodriguez MD for evaluation for Morbid Obesity and assessment for Bariatric Surgery. he is seen for final evaluation before surgery. Bariatric HPI he was seen in clinic last on 12/24/22. The procedure requested is Sleeve Gastrectomy. Patient is attending support group meeting. The patient has been participating in an online supportgroup. No of support group meeting attended 06/16 Patient is taking 90 grams of proteins supplements daily. Patient is taking 64 oz of fluid per day. Doing 10 minutes of exercise daily. Weight History: Initial Weight:09/02/2022 Weight: (!) 167.3 [...] Total Wt Loss in lb: 49.8 lb Obesity History Years of being overweight? 40yrs Age of first weight loss attempt? 18 Highest weight as an adult? 320 Goal Weight? 200 Diet History: Diet History: diet history not given Eating Habits: Volume Eater and Snacker/ Grazer Eater KENYA Screening Do you snore loudly?yes Do you often feel tired, fatigued, or sleepy during the daytime?yes Has anyone observed you stop breathing during your sleep?yes Do you have or are you being treated for high blood pressure?yes BMI more than 35? yes Age over 50?yes Neck circumference > 40 cm? 20.5 Gender Male?yes STOP-BANG score: 8 Patient has been diagnosed with sleep apnea and will be getting a CPAP Past Medical History: Diagnosis Date ??? GERD (gastroesophageal reflux disease) ??? HTN (hypertension) ??? Sleep apnea CPAP Past Surgical History: Procedure Laterality Date ??? COLONOSCOPY WITH POLYPECTOMY N/A 11/12/2022 N/A; COLONOSCOPY with polypectomy ??? ENDOSCOPY, UPPER N/A 11/12/2022 N/A; ESOPHAGOGASTRODUODENOSCOPY with biopsy ??? ENDOSCOPY, UPPER N/A 12/13/2022 N/A; ESOPHAGOGASTRODUODENOSCOPY WITH BIOPSY ??? Lumbar Diskectomy ??? Meniscectomy Bilateral Family History Problem Relation Name Age of Onset ??? Cancer Mother ??? Diabetes; unknown type Mother Social History Socioeconomic History ??? Marital status: [...] on file Housing Stability: Not on file Outpatient Medications Marked as Taking for the 01/13/23 encounter (Office Visit) with Eliana Enriquez MD Medication Sig ??? Multiple Vitamins-Minerals (Centrum Silver) TABS Take 1 (one) tablet by mouth daily with food ??? Probiotic Product (DonorPro) capsule Take 1 (one) capsule by mouth once daily ??? vitamin D, ergocalciferol, (Drisdol) 1.25 MG (04343 UT) capsule Take 1 (one) capsule by mouth every 7 days Reasons: Vitamin D Deficiency (Not in a hospital admission) No Known Allergies Review of Systems: General ROS: negative Psychological ROS: negative Ophthalmic ROS: negative ENT ROS: negative Allergy and Immunology ROS: negative Hematological and Lymphatic ROS: negative Endocrine ROS: negative Breast ROS: negative Respiratory ROS: negative Cardiovascular ROS: negative Gastrointestinal ROS: negative Genito-Urinary ROS: negative Musculoskeletal ROS: negative Neurological ROS: negative Dermatological ROS: negative Objective: Vital Signs: BP 122/68 Pulse 80 Temp 97.3 ??F (36.3 ??C) (Temporal) Resp 20 Ht 1.829 m (6') Wt (!) 144.7 kg (319 lb) SpO2 93% Weight: (!) 144.7 kg (319 lb) Height: 182.9 cm (6') Body mass index is 43.26 kg/m??. Constitutional: Alert, awake and oriented without any apparent discomfort. Eyes: Anecteric. No subconjunctival hemorrhage. Extraocular muscles were intact. Neck Exam: Supple. Trachea midline. No thyromegaly. No cervical or supraclavicular lymphadenopathy. Respiratory: Lungs were clear to auscultation bilaterally. No rales, rhonchi or carotid bruit Cardiovascular: Regular rate and rhythm. No rub, murmur or gallop Abdomen: Abdomen was obese, soft, non tender, non distended. No palpable visceromegaly. Incarcarated umbilical hernia. Skin: [place] and moist. No ulcers, rashes, or lesions. Extremities: Well perfused. No gross joint deformity noted Neurological: Cranial nerves 2-12 were grossly intact. Muscle strength was 5/5 and equal in all four extremities. Psychiatric: The patient's mood and affect appeared to be appropriate Labs No results for input(s): WBC , RBC , HGB , HCT , PLTCOUNT in the last 68853 hours. No results for input(s): SODIUM , POTASSIUM , CO2 , BUN , CREATININE in the last 24569 hours. Invalid input(s): CLORIDE No results for input(s): GLUCOSE in the last 82713 hours. No results for input(s): AST , ALT in the last 01901 hours. No results for input(s): LDL , HDL , TRIG in the last 83136 hours. No results for input(s): HGBA1C in the last 41167 hours. No results for input(s): PT , PTT , INR , TSH in the last 58034 hours. No results for input(s): TSH in the last 35787 hours. No results for input(s): IRON in the last 01286 hours. No results for input(s): [id number] in the last 19779 hours. No results for input(s): VITAMINA in the last 83702 hours. No results for input(s): IRON in the last 29314 hours. No results for input(s): VITK1 in the last 68245 hours. No results for input(s): [id number] in the last 85288 hours. No results for input(s): ALPHATOCOPH in the last 54329 hours. No results for input(s): GAMMATOCOPH in the last 29293 hours. No results for input(s): MAGMGDL in the last 82780 hours. Some lab results will be in paper format so may be scanned in the EMR. Imaging studies No results found. Some Imaging studies results will be in paper format so may be scanned in the EMR. Assessment and Plan Assessment: Morbid Obesity Detailed weight change is documented in the weight history. he had visited with the Dietitian sincethe last visit and he is adjusting the diet. he started on an exercise program is helping his weight loss plan. Continue on liquid protein diet replacement therapy. History of Gastric Ulcer He underwent EGD with Dr. Enriquez 11/12/22. ??Findings: normal duodenum,??2 antral ulcers seen, largest 2 mm,??no hiatal hernia,??normal Z-line,??normal esophagus. ??Pathology: ??Antrum, biopsy: ??Fragments of antral mucosa with focal mild chronic inflammation and intestinal metaplasia. ??No dysplasia. ??No acute inflammation. ??Negative for H pylori. ??He was recommended to avoid NSAIDs and avoid smoking. ??He was recommended repeat EGD in 4-6 weeks to demonstrate resolution prior to bariatricsurgery. ??He is scheduled 12/13/2022. ?? He underwent repeat EGD by Dr. Enriquez 12/13/22 which was normal. Findings: ??normal duodenum, normal gastric antrum, ulcers healed, no hiatal hernia, normal Z-line, normal esophagus, normal cords. Pathology: Gastric biopsies, antrum: Chronic gastritis with intestinal metaplasia, negative for H pylori. ?? History of Hypertension?? Patient was recently taken off of lisinopril/??hydrochlorothiazide. Blood pressure in the office today 122/68. Primary to optimize for now. ??Patient was recommended to avoid diuretics during perioperative period to avoid perioperative dehydration and renal failure. ?? Sleep apnea Patient had a sleep [...] On initial lab testing TSH was abnormal 4.05.??He has follow up with PCP this month.? Vitamin D deficiency He had low vitamin [...] VTE risk VTE risk assessment completed per [place] [facility] assessment tool (SocialDiabetes). ??Patient is noted to be of low risk for post-operative VTE event with a score of 14. ??Plan for standard DVT prophylaxis following procedure. ?? Elevated hemoglobin He was noted to have elevated hemoglobin on initial lab testing??09/07/22.?Repeat hemoglobin 10/26/22 was 17.2. Will continue to monitor for now. ?? Consults and Test ordered or needs follow up: None Proposed Surgery, Date and Place. Surgery: Sleeve Gastrectomy. Place: At [facility]. Patient should qualify for staying more than 2 midnights in hospital. Patient education, risk explained and consent : he meets the criteria as set by the [employer] that recommends bariatric surgery on people with a body mass index greater than 40 kg/msq or with a body mass index greater than 35 kg/msq with co-morbid conditions. I have discussed with him at great length the definition of morbid obesity and the indications for surgery. I have explained to him that the surgery is not a cure. Thisis not a cosmetic surgery and she will still require active participation with exercise, diet, and having very close follow-up with a instrument lens inspector and me. In addition he must continue to attend post-operatively, in order to increase his long-term success. I have discussed with him at great length the different types of bariatric procedures that are being performed. I have shown him a diagram explaining how the surgery works and how weight loss is accomplished. I have discussed with him at great length that the gastric bypass surgery is successful in helping the patient lose about 60-80 % of his excess body weight and that this mainly occurs within the first two years post-operatively. After that, his weight may plateau and there may be no further weight loss. Conversely, I advised that with the gastric sleeve resection, he can reasonably expect to lose 40-75 % of his excess body weight. Again, this will mainly occur in the first two years post-op. After that time,his weight may plateau and there may be no further weight loss. Additionally, in the case of the gastric sleeve resection, I have advised the patient that this surgery may be performed as a st and-alone procedure to achieve the desired outcome, or as a staging operation in preparation for further weight loss surgery. he has acknowledged his understanding that more surgery may be necessary in order to achieve an acceptable weight loss outcome. I have discussed at great length with the risks include, but are not limited to: , anastomoticleak, obstruction, bleeding, hematoma, seroma, poor wound healing, hernia formation, further surgeries, further surgeries if too much weight loss occurs, injury to liver, spleen, stomach pancreatic injury, kidney injury, diaphragmatic and heart injury, bowel injury, vessel injury and nerve injury. In discussing complications of surgeries, I placed special emphasis on esophagus gastric/bowel perforation leading to possible sepsis and , and deep vein thrombosis leading to possible pulmonary embolism and . With the gastric bypass, there are the additional potential risks such as anastomotic leak, gastric pouch necrosis, total gastrectomy, intestinal reconstruction, internal hernias, and gastrostomy tube.With the gastric sleeve, there are the additional potential risks such as sleeve stricture and spiraling. and sepsis. Any of these could require further surgery. Other risks include DVT, PE, pneumonia, wound dehiscence, hernia, wound infection, the need for dilatations of her gastrojejunostomy, and the inability to lose appropriate weight and keep it off. We discussed that ourgoal is to ameliorate her medical problems and not to obtain a specific body mass index. All surgeries may be performed laparoscopically, however the possibility exists that any procedure may have to be converted to the open approach. I have also discussed with him the possibility of long-term complications with metabolic, nutritional, and mineral derangements that are present with all three surgeries. I have made him aware that all these surgeries require a lifetime commitment surgery and he needs to be an active participant with the program. I have made him aware that after any of the surgeries he will have a very small pouch / sleeve, which will limit the quantity of food that he will be able to eat and the foods he needs to avoid in order to prevent discomfort or failure to lose weight. I have informed him that he will have to take at a minimum multivitamins and possible other supplementation. This is the case with any of the surgeries we discussed. With the bariatric surgery, because of the Restrictive / malabsorptive components , after the surgery he will have to have very close follow-up and surveillance where I will see him every month for the first four months and then at least annually for life. With those office visits, at a minimum I may routinely check a CBC, CMP, Vitamin B6 and B12, a folate level and an iron profile. In addition to these vitamins checked for the gastric sleeve surgery, for gastric bypass surgery, I will also check Vitamin A, D, E, K, and Zinc levels, as needed. I madehim aware of the long-term complications that can occur if he fails to have follow-up and develops derangements with different types of vitamin and mineral deficiencies. Each surgery requires a lot of teaching and education. I have discussed this with him at great length and have provided a great deal of information to the patient, he has attended pre operative education class by server programmer and the dietitian, but he will have additional education provided by the server programmer and instrument lens inspector at [facility]. Because of the significant changes in his eating habits he will have to see a instrument lens inspector following surgery. I have informed him that the diet after surgery is a gradual progression from clear liquids to solid foods over a period of time. Bariatric surgery can affect his psychologically and emotionally, therefore he may require post-operative therapy with a psychologist. he will have to make sure that he is willing to make the commitment for life and be an active participant. Lastly I reviewed risks specifically associated with COVID 19. I reviewed specific measures the hospital is taking to protect our patients at this time. Our patients will be cared for on a separate floor from any Covid positive patients. All ancillary staff has specific measures in place to not cross contaminate patients. Patients will quarantine at home 3 days prior to surgery and 2 weeks following surgery to avoid complication. I discussed that [place] COVID in the postoperative period has been associated with a 20% mortality rate. She understands this. He echos understanding of all the above mentioned information and the above mentioned risks and benefits and wishes to proceed with Sleeve Gastrectomy ,possible Hiatal Hernia repair and any related procedure. He has signed a consent form. Eliana Enriquez MD CC: Betty Rodriguez MD E COUPLER DINKEY documented in this encounter Consult Notes * Rosalba Lewis RD/HUY - 01/18/2023 8:08 AM CSTAssociated Order(s): IP CONSULT TO NUTRITIONAL SERV Clinical Nutrition - Consult Response Consult received for obesity/bariatric phase 1 diet. Pt is s/p VSG POD1. Phase 1 Bariatric Diet hasbeen initiated. Visited with patient to review Phase 1 diet and instructions for sipping liquids. Educated pt regarding appropriate food choices for Phase 1 diet. Discussed foods recommended and foods to avoid. Advised pt to remain on Phase 1 diet until he/she has been seen for follow-up by the physician or dietitian. Reviewed proper slow intake for sipping liquids post-operatively. Reviewed protein and fluid goals. Educated pt regarding advancement of fluids at discharge and reviewed goals forfluid and protein intake. Handouts provided. Pt v/u. Encouraged pt to contact the [facility] office or the dietitian for further questions/concerns. Will continue to monitor per protocol. E COUPLER DINKEY * Nicolette Abdalla APRN-PANEL EDGE PAINTER - 01/17/2023 2:04 PM CSTAssociated Order(s): IP CONSULT TO HOSPITALIST MEDICINE CONSULT NOTE Patient's Name: Jayesh Anderson Date of : 1955 Date of Admission: 01/17/2023 7:13 AM Date of Service: 01/17/2023 2:04 PM Hospital Day: 0 History of Present Illness: CHIEF COMPLAINT: No chief complaint on file. HPI: Jayesh Anderson is a 67 year old male with PMH that includes hypertension, hyperlipidemia, vitamin-D deficiency and sleep apnea that presents for pre scheduled procedure with Dr. Enriquez. He is now status post laparoscopic sleeve gastrectomy. The hospitalist service has been consulted for medical management. Patient seen and examined bedside. Patient seen and evaluated at the bedside. He is resting in bed family member at the bedside. Denies any current complaints. We reviewed his past medical history. Patient denied any significant past medical history. When asked about high blood pressure high cholesterol he denied. However review of chart reveals patient does have a history of high blood pressure high cholesterol. Does not appear to be taking any current home meds for this. Blood pressure stable. Review of Systems: Review of Systems Constitutional: Negative for chills and fever. Respiratory: Negative for cough, sputum production and shortness of breath. Cardiovascular: Negative for chest pain and leg swelling. Gastrointestinal: Negative for abdominal pain, nausea and vomiting. Genitourinary: Negative for dysuria, frequency and hematuria. All other systems reviewed and are negative. Past Medical History: Diagnosis Date ??? GERD (gastroesophageal reflux disease) ??? HTN (hypertension) ??? Sleep apnea CPAP Past Surgical History: Procedure Laterality Date ??? COLONOSCOPY WITH POLYPECTOMY N/A 11/12/2022 N/A; COLONOSCOPY with polypectomy ??? ENDOSCOPY, UPPER N/A 11/12/2022 N/A; ESOPHAGOGASTRODUODENOSCOPY with biopsy ??? ENDOSCOPY, UPPER N/A 12/13/2022 N/A; ESOPHAGOGASTRODUODENOSCOPY WITH BIOPSY ??? Lumbar Diskectomy ??? Meniscectomy Bilateral No Known Allergies Medications Prior to Admission Medication Sig Dispense Refill ??? acetaminophen (TYLENOL) 500 MG tablet Pt is to take 2 tabs po every 6 hours for basal pain (Patient not taking: Reported on 01/13/2023) 40 tablet 0 ??? docusate sodium (Colace) 100 MG capsule Take 1 (one) capsule by mouth 2 times daily (Patient not taking: Reported on 01/13/2023) 30 capsule 0 ??? Multiple Vitamins-Minerals (Centrum Silver) TABS Take 1 (one) tablet by mouth daily with food ??? omeprazole (PriLOSEC) 40 MG capsule Take 1 (one) capsule by mouth daily before breakfast 30 capsule 3 ??? ondansetron, disintegrating, (Zofran ODT) 4 MG tablet Take 1 (one) tablet by mouth every 4 hours as needed for Nausea/Vomiting Allow tablet to dissolve on the tongue (Patient not taking: Reportedon 01/13/2023) 30 tablet 2 ??? oxyCODONE, immediate release, (Roxicodone) 5 MG tablet Take 1 to 2 tabs prn every 4 hours for pain. Max of 6 tabs in 24hrs. (Patient not taking: Reported on 01/13/2023) 8 tablet 0 ??? Probiotic Product (DonorPro) capsule Take 1 (one) capsule by mouth once daily 30 capsule 3 ??? scopolamine (Transderm-Scop) 1 MG patch Apply 1 patch to skin pre-op for 1 dose, place 1 patch behind ear night before surgery Reasons: Operation 1 patch 0 ??? ursodiol (Actigall) 300 MG capsule Take 1 (one) capsule by mouth 2 times daily for 90 days Do Not start until 1 week post op. Reasons: Post op laproscopic sleeve gastrectomy (Patient not taking: Reported on 01/13/2023) 60 capsule 2 ??? vitamin D, ergocalciferol, (Drisdol) 1.25 MG (72264 UT) capsule Take 1 (one) capsule by mouth every 7 days Reasons: Vitamin D Deficiency 4 capsule 3 Family History Problem Relation Name Age of Onset ??? Cancer Mother ??? Diabetes; unknown type Mother Social History Tobacco Use ??? Smoking status: Never ??? Smokeless tobacco: Never Substance Use Topics ??? Alcohol use: Not Currently Comment: 2-3x weekly Physical Exam: Patient Vitals for the past 8 hrs: BP Temp Temp src Pulse Resp SpO2 Height Weight 01/17/23 1340 -- -- -- 79 -- 94 % -- -- 01/17/23 1315 119/56 -- -- 81 16 94 % -- -- 01/17/23 1300 117/68 -- -- 82 14 90 % -- -- 01/17/23 1245 111/59 -- -- 81 16 93 % -- -- 01/17/23 1230 115/63 -- -- 80 16 91 % -- -- 01/17/23 1225 116/82 98 ??F (36.7 ??C) -- 79 16 91 % -- -- 01/17/23 1215 130/76 -- -- 76 -- 93 % -- -- 01/17/23 1155 135/75 -- -- 80 18 92 % -- -- 01/17/23 1154 135/75 -- -- 80 24 94 % -- -- 01/17/23 1150 120/60 -- -- 79 27 94 % -- -- 01/17/23 1146 121/65 -- -- 81 24 94 % -- -- 01/17/23 1145 121/65 -- -- 81 13 94 % -- -- 01/17/23 1140 137/74 -- -- 77 20 94 % -- -- 01/17/23 1135 136/73 -- -- 79 18 96 % -- -- 01/17/23 1130 130/72 -- -- 74 26 98 % -- -- 01/17/23 1129 130/72 -- -- 77 26 98 % -- -- 01/17/23 1125 128/74 -- -- 77 20 97 % -- -- 01/17/23 1120 128/73 -- -- 79 24 94 % -- -- 01/17/23 1119 -- 97.3 ??F (36.3 ??C) -- -- 27 94 % -- -- 01/17/23 1118 127/69 -- -- -- 22 (!) 88 % -- -- 01/17/23 0737 140/75 97.9 ??F (36.6 ??C) Oral 70 17 98 % 1.829 m (6') (!) 141.7 kg (312 lb 6.3 oz) Intake/Output Summary (Last 24 hours) at 01/17/2023 1404 Last data filed at 01/17/2023 1124 Gross per 24 hour Intake 1600 ml Output -- Net 1600 ml Physical Exam Vitals and nursing note reviewed. Constitutional: General: He is not in acute distress. Appearance: He is obese. He is not ill-appearing. HENT: Head: Normocephalic and atraumatic. Mouth/Throat: Mouth: Mucous membranes are moist. Cardiovascular: Rate and Rhythm: Normal rate and regular rhythm. Pulses: Normal pulses. Heart sounds: Normal heart sounds. No murmur heard. Pulmonary: Effort: Pulmonary effort is normal. No respiratory distress. Breath sounds: Normal breath sounds. No wheezing, rhonchi or rales. Abdominal: General: Abdomen is flat and protuberant. Bowel sounds are normal. There is no distension. Palpations: Abdomen is soft. Tenderness: There is no abdominal tenderness. There is no guarding or rebound. Musculoskeletal: General: No swelling. Normal range of motion. Skin: General: Skin is warm and dry. Capillary Refill: Capillary refill takes less than 2 seconds. Findings: No erythema or rash. Neurological: General: No focal deficit present. Mental Status: He is alert and oriented to person, place, and time. Mental status is at baseline. Psychiatric: Mood and Affect: Mood normal. Behavior: Behavior normal. Laboratory Findings: Recent Labs Component Name 01/17/23 1130 WBC 7.3 RBC 3.91* HGB 13.4* HCT 39.7* MCV 101.5* MCHC 33.8 RDW 13.1 PLTCOUNT 197 NEUTPCT 72.6 LYMPHPCT 15.4* BASOPHILPCT 0.3 GRANSIMMPCT 0.4 LYMPHABS 1.12* BASOABS 0.02 NRBCAUTO 0 Recent Labs Component Name 01/17/23 1130 SODIUM 143 POTASSIUM 4.1 CHLORIDE 110* CO2 21* BUN 12.3 CREATININE 0.62* GLUCOSE 100 CALCIUM 9.23 MAGNESIUM 1.7 ALBUMIN 3.9 ALKPHOS 73 ALT 48 AST 42* TBIL 0.8 TPROT 6.9 EGFR >90 PHOS 4.38 No results for input(s): MAGMGDL in the last 06183 hours. No results for input(s): PT , INR , DDIMER in the last 15477 hours. No results for input(s): CK in the last 52525 hours. No results for input(s): TROPONIN , BNP , DDIMER in the last 20156 hours. No results for input(s): PHART , HTF8VIG , PO2ART , MVA3ISX , W2YRQCXK , FIO2 in the last 90116 hours. No results for input(s): LACTICACID in the last 52235 hours. No results for input(s): HGBA1C in the last 41915 hours. No results for input(s): CHOL , TRIG , HDL , LDLCALC , VLDL , CHOLHDLRATIO in the last 98091hdmcf. No results for input(s): TSH , O6LUNQK , T4FREE , V8XBGKZ in the last 07593 hours. No results for input(s): IRON , FERRITIN in the last 58814 hours. Invalid input(s): IRONTIBC No results for input(s): CRP in the last 34470 hours. No results for input(s): COLORUA , CLARITYUA , SPECGRAVUA , PHUA , PROTEINUA , BLOODUA , LEUKOCYTEUA , NITRITEUA , GLUCOSEUA , KETONEUA , BILIRUBINUA , UROBILINUA , RBCUA , WBCUA , EPITHUA , BACTUA , YEASTUA , CASTUA , MUCUSUA in the last 88655 hours. Invalid input(s): CRYSUA Electrocardiogram: No results found for any visits on 01/17/23. Imaging: No results found. ASSESSMENT AND PLAN Refractory morbid obesity with BMI of Body mass index is 42.37 kg/m?? s/p laparoscopic sleeve gastrectomy. Pain related to acute condition -management per Dr. Enriquez, pain control, bowel regimen, physical therapy evaluation, nutrition consultation History of Hypertension History of Hyperlipidemia History of vitamin-D deficiency Sleep apnea -according to past medical record patient used to take hydrochlorothiazide and a statin, not a partof current home medication list. Takes vitamin-D replacement every 7 days outpatient. He is currently normotensive, hemodynamically stable, afebrile. Continue BiPAP at night, with naps, and p.r.n.. Thank you for allowing me to participate in this patient's care. Chart, vitals, labs reviewed. Patient is stable from medical standpoint. We will sign off. Feel free to reach out to hospitalist team for any new or developing medical needs. Portions of this note have been created with voice recognition software. Occasional wrong-word or '[id number]' substitutions may have occurred due to the inherent limitations of voice recognition software. Nicolette Abdalla APRN-PANEL EDGE PAINTER 01/17/2023 2:04 PM E COUPLER DINKEY documented in this encounter OR Notes * Operative - Eliana Enriquez MD - 01/17/2023 9:57 AM CST Pt Name: Jayesh Anderson DATE OF OPERATION: 01/17/2023 SURGEON: Surgeon(s) and Role: * Eliana Enriquez MD - Primary EMAIL PRODUCTION SPECIALIST: Senior Adults Director: Gertrudis Lemos RN Registered Nurse Senior Accounting Manager: Lian Kaufman RN Scrub Person: Amanda Mondragon RN Student: Melody Sherman PREOPERATIVE DIAGNOSIS: 1. Refractory morbid obesity with BMI of Body mass index is 42.37 kg/m??. 2. History of hypertension 3. Sleep apnea 4. History of hyperlipidemia 5. Thyroid deficiency 6. Vitamin-D deficiency 7. Umbilical hernia POSTOPERATIVE DIAGNOSIS: Same NAME OF PROCEDURE: 1. Laparoscopic sleeve gastrectomy ANESTHESIA: General endotracheal anesthesia. FINDINGS: 1. No hiatal hernia 2. No leak on leak test DESCRIPTION OF PROCEDURE: After informed consent was obtained, the patient was brought back to the operating room and placed in a supine position on the operating room table. General endotracheal anesthesia was induced. The patient was then prepped and draped in sterile fashion. A time-out was performed confirming patient name, antibiotic, allergy and procedure, SCDs confirmed in place as well as administration of subcutaneous heparin. A 12 mm incision was made 15 cm inferior to the costal margin and just to the left ofmidline. An Optiview trocar was placed through this incision. Pneumo-insufflation was initiated andcarried to final pressure of 15 mmHg. Direct visualization confirmed no underlying visceral injury.Two additional 12 mm trocars were placed in the right upper quadrant. An additional 5 mm trocar wasplaced in the left upper quadrant for the air seal. The air seal was then initiated and the patientplaced in steep reverse Trendelenburg position. The FreeHold retraction system was set up into place anchoring from the central tendon of the diaphragm to the anterior abdominal wall. From here, the calibration tube was passed into the stomach and the stomach desufflated. Angle of His was then opened using a LigaSure as well as blunt dissection. From here, the omentum was released from the greater curvature using the LigaSure. The dissection was taken from 6 cm proximal to the pylorus all the way up to the angle of His. From here, a green load of the endoscopic linear cutting stapler was usedto initiate the creation of the sleeve gastrectomy. This was started 6 cm proximal to the pylorus. Additional blue loads of the endoscopic linear cutting stapler were used to create the sleeve using the calibration tube as a guide. Following this, the stomach was placed in the right upper quadrant.Hemostasis was confirmed along the staple line. The patient was then placed in a supine position and distal stomach clamped off. Air was passed through the calibration tube while holding the staple line under saline. Leak test was negative for leak. From here, the stomach was desufflated and the calibration tube removed. No significant blood or clot on the distal end of the calibration tube. Saline was suctioned from the abdomen. From here, 0 [address] was used to place 2 sutures tacking the omentum to the posterior stomach along the incisura and distal antrum. Tisseel was sprayed along the length of the staple line. The Freehold retraction system was then released and removed from the abdomen. The 12 mm right upper quadrant incision was then dilated and the stomach pulled through this incision. Fascia at this incision was then reapproximated using an 0 Vicryl passed with a suture Passer. Fascia at the 2nd 12 mm incision was then reapproximated using an 0 Vicryl passed with a suture Passer. Final inspection of the staple line confirmed good hemostasis. Additional saline was suctioned from the abdomen in both the right and left upper quadrants. The incisions were then irrigated and a tap block performed. Appropriate filtration tubing was connected and Pneumo-insufflation was then rel eased. Hemostasis was confirmed along the incisions and the skin closed with Stratafix. The skin was then cleaned and covered with skin glue. The patient was then allowed to awake from anesthesia and transferred to the postanesthesia care unit in good condition. ESTIMATED BLOOD LOSS: 20 cc FLUIDS: 1500 cc SPECIMENS: Stomach. COMPLICATIONS: None. Eliana Enriquez MD E COUPLER DINKEY documented in this encounter Plan of Treatment Upcoming Encounters Date Type Department Care Team (Latest Contact Info) Description 04/25/2024 9:44 AM CDT Hospital Encounter [facility] - [address] [address] [place] [address] Eliana Enriquez MD [address] [place] [id number] Surgery General 04/25/2024 9:44 AM CDT - 04/25/2024 10:10 AM CDT Surgery [facility] - [address] [place] [address] Eliana Enriquez MD [address] [place] [facility] [place] [address] ESOPHAGOGASTRODUODENOSCOPY WITH BIOPSY 05/03/2024 9:30 AM CDT Office Visit [facility] [address] [place] [facility] [place] [address] Eliana Enriquez MD [address] [place] [address] 07/19/2024 9:00 AM CDT Office Visit [facility] [address] [place] [facility] [place] [address] Anusha Campa, CHARGE MASTER SPECIALIST-PANEL EDGE PAINTER [address] [place] [address] 01/18/2025 9:00 AM BRAKE COUPLER DINKEY Clinical Support [facility] [address] [place] [facility] [place] [address] 01/18/2025 9:30 AM BRAKE COUPLER DINKEY Office Visit [facility] [address] [place] [facility] [place] [address] Anusha Campa, CHARGE MASTER SPECIALIST-PANEL EDGE PAINTER [address] [place] [address] Scheduled Procedures Name Priority Associated Diagnoses Date/Ti me ESOPHAGOGASTRODUODENOSCOPY ( EGD) BIOPSY Status post bariatric surgery 04/25/2024 9:44 AM CDT documented as of this encounter Procedures Procedure Name Priority Date/Time Associated Diagnosis Comments CARDIAC RHYTHM STRIP ORDER 01/19/2023 3:11 PM BRAKE COUPLER DINKEY APHERESIS/TRANSFUSIO N ORDER 01/19/2023 2:32 PM BRAKE COUPLER DINKEY GLUCOSE - POINT OF CARE Routine 01/18/2023 11:19 AM BRAKE COUPLER DINKEY GLUCOSE - POINT OF CARE Routine 01/18/2023 6:18 AM BRAKE COUPLER DINKEY TSH REFLEX FREE T4 Routine 01/18/2023 5: 48 AM BRAKE COUPLER DINKEY HEMOGLOBIN A1C Routine 01/18/2023 5:48 AM BRAKE COUPLER DINKEY VITAMIN D 25-HYDROXY AM Draw 01/18/2023 5:48 AM BRAKE COUPLER DINKEY Vitamin D deficiency CBC W AUTO DIFFERENTIAL Routine 01/18/2023 5:48 AM BRAKE COUPLER DINKEY COMPREHENSIVE METABOLIC PANEL Routine 01/18/2023 5:48 AM BRAKE COUPLER DINKEY PHOSPHORUS BLOOD Routine 01/18/2023 5:48 AM BRAKE COUPLER DINKEY MAGNESIUM BLOOD Routine 01/18/2023 5:48 AM BRAKE COUPLER DINKEY LIPID PROFILE AM Draw 01/18/2023 5:48 AM BRAKE COUPLER DINKEY GLUCOSE - POINT OF CARE Routine 01/17/2023 9:58 PM BRAKE COUPLER DINKEY MAGNESIUM BLOOD Timed 01/17/2023 6:32 PM BRAKE COUPLER DINKEY GLUCOSE - POINT OF CARE Routine 01/17/2023 4:25 PM BRAKE COUPLER DINKEY CBC W AUTO DIFFERENTIAL Routine 01/17/2023 11:30 AM BRAKE COUPLER DINKEY COMPREHENSIVE METABOLIC PANEL Routine 01/17/2023 11:30 AM BRAKE COUPLER DINKEY PHOSPHORUS BLOOD Routine 01/17/2023 11:3 0 AM BRAKE COUPLER DINKEY MAGNESIUM BLOOD Routine 01/17/2023 11:30 AM BRAKE COUPLER DINKEY GROSS + MICRO EXAM (ILL) Routine 01/17/2023 10:44 AM BRAKE COUPLER DINKEY Morbid obesity (HCC) MD LAP SLEEVE GASTRECTOMY 01/17/2023 9:03 AM BRAKE COUPLER DINKEY Morbid obesity (HCC) Special Needs ARRIVAL TIME:[id number] documented in this encounter Results * CARDIAC RHYTHM STRIP ORDER (01/19/2023 3:11 PM BRAKE COUPLER DINKEY) Narrative 01/19/2023 3:11 PM BRAKE COUPLER DINKEY Ordered by an unspecified provider. Scanned Document CARDIAC SERVICES ORD ERABLES * APHERESIS/TRANSFUSION ORDER (01/19/2023 2:32 PM [facility]) Narrative 01/19/2023 2:32 PM [facility] Ordered by an unspecified provider. Scanned Document NURSING - VITAL SIGN S AND ASSESSMENT * GLUCOSE - POINT OF CARE (01/18/2023 11:19 AM [facility]) Glucose WB/POC 111 70 - 125 mg/dL 01/18/2023 11:29 AM [facility] Specimen Type Arterial 01/18/2023 11:29 AM [facility] Blood BLOOD SPECIMEN / Unknown 01/18/2023 11:19 AM [facility] 01/18/2023 11:29 AM [facility] Eliana Enriquez MD LAB - POINT OF ARE ORDERABLES Performing Organization Address City/[facility] Co de Phone Number [facility] [address] [place] [address] * GLUCOSE - POINT OF CARE (01/18/2023 6:18 AM [facility]) Glucose WB/POC 122 70 - 125 mg/dL 01/18/2023 6:41 AM [facility] Specimen Type Cap Fingerstick 2022 6:41 AM [facility] Blood BLOOD SPECIMEN / Unknown 01/18/2023 6:18 AM [facility] 01/18/2023 6:41 AM [facility] Eliana Enriquez MD LAB - POINT OF ARE ORDERABLES Performing Organization Address City/[facility] Co de Phone Number [facility] [address] * PHOSPHORUS BLOOD (01/18/2023 5:48 AM [facility]) Phosphorus 3.05 2.3 - 4.7 mg/dL 01/18/2023 6:26 AM [facility] Blood BLOOD SPECIMEN / Unknown Lab Venipuncture / Unknown 01/18/2023 5:48 AM [facility] 01/18/2023 6:03 AM [facility] Eliana Enriquez MD LAB - CHEMISTRY ORDERABLES Performing Organization Address [facility] Co de Phone Number [facility] [address] * MAGNESIUM BLOOD (01/18/2023 5:48 AM [facility]) Magnesium 2.0 1.6 - 2.6 mg/dL 01/18/2023 6:26 AM [facility] Blood BLOOD SPECIMEN / Unknown Lab Venipuncture / Unknown 01/18/2023 5:48 AM [facility] 01/18/2023 6:03 AM [facility] Eliana Enriquez MD LAB - CHEMISTRY ORDERABLES Performing Organization Address [facility] de Phone Number [facility] [address] [place] [address] * (ABNORMAL) COMPREHENSIVE METABOLIC PANEL (01/18/2023 5:48 AM [facility]) Glucose 124 70 - 125 mg/dL 01/18/2023 6:26 AM [facility] Sodium 142 136 - 145 mmol/L 01/18/2023 6:26 AM [facility] Potassium 4.3 3.4 - 5.1 mmol/L 01/18/2023 6:26 AM [facility] Chloride 109(H) 98 - 107 mmol/L 01/18/2023 6:26 AM [facility] CO2 24 22 - 29 mmol/L 01/18/2023 6:26 AM [facility] Calcium 9.13 8.4 - 10.2 mg/dL 01/18/2023 6:26 AM [facility] Anion Gap 9 6 - 16 mmol/L 01/18/2023 6:26 AM [facility] BUN 15.6 8.4 - 25.7 mg/dL 01/18/2023 6:26 AM [facility] Creatinine 0.67(L) 0.72 - 1.25 mg/dL 01/18/2023 6:26 AM [facility] Alkaline Phosphatase 69 40 - 150 U/L 01/18/2023 6:26 AM [facility] ALT 38 <=55 U/L 01/18/2023 6:26 AM [facility] AST 32 5 - 34 U/L 01/18/2023 6:26 AM [facility] Protein Total 6.7 6.4 - 8.3 gm/dL 01/18/2023 6:26 AM [facility] Albumin 3.7 3.4 - 4.8 gm/dL 01/18/2023 6:26 AM [facility] Globulin Total 3.0 2.6 - 4.0 gm/dL 01/18/2023 6:26 AM [facility] Albumin/Globulin Ratio 1.2 0.9 - 1.6 01/18/2023 6:26 AM [facility] Bilirubin Total 1.2 0.2 - 1.2 mg/dL 01/18/2023 6:26 AM [facility] eGFR >90 >90 mL/min/1.7 3m2 01/18/2023 6:26 AM [facility] Comment:The GFR result was c alculated using the updated CKD-EPI Creatinine Equation (2020). Blood BLOOD SPECIMEN / Unknown Lab Venipuncture / Unknown 01/18/2023 5:48 AM [facility] 01/18/2023 6:03 AM [facility] Eliana Enriquez MD LAB - CHEMISTRY ORDERABLES Performing Organization Address [facility] de Phone Number [facility] [address] * (ABNORMAL) CBC W AUTO DIFFERENTIAL (01/18/2023 5:48 AM [facility]) WBC 11.8(H) 4.0 - 10.0 x10E9/L 01/18/2023 6:06 AM [facility] RBC 3.59(L) 4.40 - 6.10 x10E12/L 01/18/2023 6:06 AM [facility] Hemoglobin 12.7(L) 13.7 - 17.5 gm/dL 01/18/2023 6:06 AM [facility] Hematocrit 36.9(L) 40.1 - 51.0 % 01/18/2023 6:06 AM [facility] MCV 102.8(H) 78.0 - 100.0 fl 01/18/2023 6:06 AM [facility] MCH 35.4(H) 25.6 - 34.0 pg 01/18/2023 6:06 AM [facility] MCHC 34.4 32.3 - 36.5 gm/dL 01/18/2023 6:06 AM [facility] RDW 13.3 11.6 - 14.4 % 01/18/2023 6:06 AM [facility] MPV 9.4 9.4 - 12.4 fl 01/18/2023 6:06 AM [facility] Platelet Count 224 163 - 369 x10E9/L 01/18/2023 6:06 AM [facility] Neutrophils % 83.1(H) 40.0 - 75.0 % 01/18/2023 6:06 AM [facility] Lymphocytes % 6.8(L) 19.3 - 53.1 % 01/18/2023 6:06 AM [facility] Monocytes % 9.5 4.7 - 12.5 % 01/18/2023 6:06 AM [facility] Eosinophils % 0.1(L) 0.7 - 7.0 % 01/18/2023 6:06 AM [facility] Basophils % 0.1 0.1 - 1.2 % 01/18/2023 6:06 AM [facility] Immature Granulocytes 0.4 0 - 0.5 % 01/18/2023 6:06 AM [facility] Neutrophil Absolute 9.83(H) 1.56 - 6.13 x10E9/L 01/18/2023 6:06 AM [facility] Lymphocytes Absolute 0.81(L) 1.18 - 3.74 x10E9/L 01/18/2023 6:06 AM [facility] Monocytes Absolute 1.12(H) 0.24 - 0.86 x10E9/L 01/18/2023 6:06 AM [facility] Eosinophils Absolute 0.01(L) 0.04 - 0.54 x10E9/L 01/18/2023 6:06 AM [facility] Basophils Absolute 0.01 0.01 - 0.08 x10E9/L 01/18/2023 6:06 AM [facility] Immature Granulocytes Absolute 0.05(H) 0 - 0.03 x10E9/L 01/18/2023 6:06 AM [facility] nRBC Auto 0 <=0 /100 WBC 01/18/2023 6:06 AM [facility] nRBC Absolute 0.00 <=0 x10E9/L 01/18/2023 6:06 AM [facility] Blood BLOOD SPECIMEN / Unknown Lab Venipuncture / Unknown 01/18/2023 5:48 AM [facility] 01/18/2023 6:03 AM [facility] Eliana Enriquez MD LAB - HEMATOLOGY ORDERABLES Performing Organization Address [facility] de Phone Number [address] * VITAMIN D 25-HYDROXY (01/18/2023 5:48 AM [facility]) [facility] Vitamin D, 25 Hydroxy 42.0 30 - 80 ng/mL 01/18/2023 6:43 AM [facility] Blood BLOOD SPECIMEN / Unknown Lab Venipuncture / Unknown 01/18/2023 5:48 AM [facility] 01/18/2023 6:03 AM [facility] Narrative [facility] - 01/18/2023 6:43 AM [facility] Reference Values: The recommendation for 25-Hydroxy Vitamin D clinical decision points are as follows: Deficient ? < 20.0 ng/mL Insufficient ? 20.0-29.9 ng/mL Sufficient ? 30.0-100.0 ng/mL Potential Toxicity ? >100 ng/mL Reference: The Endocrine Society Clinical Practice Guidelines. 2011 If the 25-Hydroxy Vitamin D results are inconsistent with clinical evidence, it is recommended that follow-up testing using a method such as LC-MS/MS be performed to confirm the result. Anusha Campa CHARGE MASTER SPECIALIST-PANEL EDGE PAINTER LAB - CHEMISTRY ORDERABLES Performing Organization Address [facility] Co de Phone Number [facility] [address] [place], [place] [address] * LIPID PROFILE (01/18/2023 5:48 AM [facility]) Cholesterol 170 <200 mg/dL 01/18/2023 6:26 AM [facility] Triglycerides 86 <150 mg/dL 01/18/2023 6:26 AM [facility] HDL Cholesterol 51 >40 mg/dL 3 6:26 AM [facility] Chol HDL Ratio 3.3 1.0 - 6.0 01/18/2023 6:26 AM [facility] LDL Calculated 102 65 - 130 mg/dL 01/18/2023 6:26 AM [facility] VLDL Calculated 17 <=30 mg/dL 3 6:26 AM [facility] Blood BLOOD SPECIMEN / Unknown Lab Venipuncture / Unknown 01/18/2023 5:48 AM [facility] 01/18/2023 6:03 AM [facility] - 01/18/2023 6:26 AM [facility] Lipid Profile Comment: CHOLESTEROL LEVEL..................CLINICAL INTERPRETATION LESS THAN 200 MG/DL..............................DESIRABLE 200-239 MG/DL..............................BORDERLINE HIGH GREATER THAN 240 MG/DL................................HIGH LDL-CHOLESTEROL LEVEL..............CLINICAL INTERPRETATION LESS THAN 100 MG/DL................................OPTIMAL 100-129 MG/DL.................................NEAR OPTIMAL GREATER THAN 160 MG/DL...........................HIGH RISK HDL RISK LEVEL GREATER THEN 60 MG/DL............................DECREASED 40-60 MG/DL........................................AVERAGE LESS THAN 40 MG/DL...............................INCREASED TRIGLYCERIDE LEVEL..................CLINICAL INTERPRETATION LESS THAN 150 MG/DL...............................DESIRABLE 150-199 MG/DL...............................BORDERLINE HIGH 200-499 MG/DL..........................................HIGH GREATER THAN 500..................................VERY HIGH THE NATIONAL CHOLESTEROL EDUCATION PROGRAM HAS SET THE ABOVE GUIDELINES (REFERANCE VALUES) FOR CHOLESTEROL AND HDL. RISK ASSOCIATED WITH CHOLESTEROL/HDL RATIOS RISK....................MALE RATIO.............FEMALE RATIO 1/2 AVERAGE.................<3.4.......................<3.3 LOW RISK.................... 4.0 ...................... 3.8 AVERAGE..................... 5.0 ...................... 4.5 2X AVERAGE.................. 9.5 ...................... 7.0 3X AVERAGE...................>23........................>11 [facility] LAB - CHEMISTRY ORDERABLES Performing Organization Address [facility] Co de Phone Number [facility] [address] [place] [address] * TSH REFLEX FREE T4 (01/18/2023 5:48 AM [facility]) Pathologist [facility] TSH 1.9327 0.35 - 4.94 uIU/mL 01/18/2023 6:46 AM [facility] Comment:TSH Normal, Reflex F ree T4 Not Performed. Blood BLOOD SPECIMEN / Unknown Lab Venipuncture / Unknown 01/18/2023 5:48 AM [facility] 01/18/2023 6:03 AM [facility] LAB - CHEMISTRY ORDERABLES Performing Organization Address [facility] de Phone Number [facility] [address] [place] [address] * HEMOGLOBIN A1C (01/18/2023 5:48 AM [facility]) Hemoglobin A1c 5.1 4.2 - 5.6 % 01/18/2023 6:13 AM [facility] Estimated Average Glucose 100 mg/dL 01/18/2023 6:13 AM [facility] Blood BLOOD SPECIMEN / Unknown Lab Venipuncture / Unknown 01/18/2023 5:48 AM [facility] 01/18/2023 6:03 AM [facility] Narrative [facility] - 01/18/2023 6:13 AM [facility] HbA1c Interpretation: Normal: < 5.7% [...] (HbF) exceeds 5% in the specimen. The Connect[employer] assay for the measurement of HbA1c is a National Glycohemoglobin Standardization Program (NGSP) certified method. Eliana Enriquez MD LAB - CHEMISTRY ORDERABLES Performing Organization Address [facility] Co de Phone Number [facility] [address] * (ABNORMAL) GLUCOSE - POINT OF CARE (01/17/2023 9:58 PM [facility]) [facility] Glucose WB/POC 149(H) 70 - 125 mg/dL 01/17/2023 10:00 PM [facility] Specimen Type Cap Fingerstick 2022 10:00 PM [facility] Blood BLOOD SPECIMEN / Unknown 01/17/2023 9:58 PM [facility] 01/17/2023 10:00 PM [facility] Eliana Enriquez MD LAB - POINT OF C ARE ORDERABLES Performing Organization Address [facility] Co de Phone Number [facility] [address] * MAGNESIUM BLOOD (01/17/2023 6:32 PM [facility]) [facility] Magnesium 2.1 1.6 - 2.6 mg/dL 01/17/2023 7:00 PM [facility] Blood BLOOD SPECIMEN / Unknown Lab Venipuncture / Unknown 01/17/2023 6:32 PM [facility] 01/17/2023 6:36 PM [facility] Fior Garvey MD LAB - CHEMISTRY OLIVIA MERIDA Performing Organization Address [facility] Co de Phone Number [facility] [address] * GLUCOSE - POINT OF CARE (01/17/2023 4:25 PM [facility]) Glucose WB/POC 124 70 - 125 mg/dL 01/17/2023 4:27 PM [facility] Specimen Type Cap Fingerstick 2022 4:27 PM [facility] Blood BLOOD SPECIMEN / Unknown 01/17/2023 4:25 PM [facility] 01/17/2023 4:27 PM [facility] Eliana Enriquez MD LAB - POINT OF C ARE ORDERABLES Performing Organization Address [facility] Co de Phone Number [facility] [address] [place] [address] * PHOSPHORUS BLOOD (01/17/2023 11:30 AM [facility]) Phosphorus 4.38 2.3 - 4.7 mg/dL 01/17/2023 11:57 AM [facility] Blood BLOOD SPECIMEN / Unknown Lab Venipuncture / Unknown 01/17/2023 11:30 AM [facility] 01/17/2023 11:33 AM [facility] Eliana Enriquez MD LAB - CHEMISTRY ORDERABLES Performing Organization Address [facility] Co de Phone Number [facility] [address] [place] [address] * MAGNESIUM BLOOD (01/17/2023 11:30 AM [facility]) Magnesium 1.7 1.6 - 2.6 mg/dL 01/17/2023 11:57 AM [facility] Blood BLOOD SPECIMEN / Unknown Lab Venipuncture / Unknown 01/17/2023 11:30 AM [facility] 01/17/2023 11:33 AM [facility] Eliana Enriquez MD LAB - CHEMISTRY ORDERABLES Performing Organization Address City/State/[facility] Co de Phone Number [facility] [address] [place], [place] [id number] [place] [address] * (ABNORMAL) COMPREHENSIVE METABOLIC PANEL (01/17/2023 11:30 AM [facility]) Pathologist [facility] Glucose 100 70 - 125 mg/dL 01/17/2023 11:57 AM [facility] Sodium 143 136 - 145 mmol/L 01/17/2023 11:57 AM [facility] Potassium 4.1 3.4 - 5.1 mmol/L 01/17/2023 11:57 AM [facility] Chloride 110(H) 98 - 107 mmol/L 01/17/2023 11:57 AM [facility] CO2 21(L) 22 - 29 mmol/L 01/17/2023 11:57 AM [facility] Calcium 9.23 8.4 - 10.2 mg/dL 01/17/2023 11:57 AM [facility] Anion Gap 16 6 - 16 mmol/L 01/17/2023 11:57 AM [facility] BUN 12.3 8.4 - 25.7 mg/dL 01/17/2023 11:57 AM [facility] Creatinine 0.62(L) 0.72 - 1.25 mg/dL 01/17/2023 11:57 AM [facility] Alkaline Phosphatase 73 40 - 150 U/L 01/17/2023 11:57 AM [facility] ALT 48 <=55 U/L 01/17/2023 11:57 AM [facility] AST 42(H) 5 - 34 U/L 01/17/2023 11:57 AM [facility] Protein Total 6.9 6.4 - 8.3 gm/dL 01/17/2023 11:57 AM [facility] Albumin 3.9 3.4 - 4.8 gm/dL 01/17/2023 11:57 AM [facility] Globulin Total 3.0 2.6 - 4.0 gm/dL 01/17/2023 11:57 AM [facility] Albumin/Globulin Ratio 1.3 0.9 - 1.6 01/17/2023 11:57 AM [facility] Bilirubin Total 0.8 0.2 - 1.2 mg/dL 01/17/2023 11:57 AM [facility] eGFR >90 >90 mL/min/1.7 3m2 01/17/2023 11:57 AM [facility] Comment:The GFR result was c alculated using the updated CKD-EPI Creatinine Equation (2020). Blood BLOOD SPECIMEN / Unknown Lab Venipuncture / Unknown 01/17/2023 11:30 AM [facility] 01/17/2023 11:33 AM [facility] Eliana Enriquez MD LAB - CHEMISTRY ORDERABLES Performing Organization Address City/State/[facility] Co de Phone Number [facility] [address] * (ABNORMAL) CBC W AUTO DIFFERENTIAL (01/17/2023 11:30 AM [facility]) WBC 7.3 4.0 - 10.0 x10E9/L 01/17/2023 11:37 AM [facility] RBC 3.91(L) 4.40 - 6.10 x10E12/L 01/17/2023 11:37 AM [facility] Hemoglobin 13.4(L) 13.7 - 17.5 gm/dL 01/17/2023 11:37 AM [facility] Hematocrit 39.7(L) 40.1 - 51.0 % 01/17/2023 11:37 AM [facility] MCV 101.5(H) 78.0 - 100.0 fl 01/17/2023 11:37 AM [facility] MCH 34.3(H) 25.6 - 34.0 pg 01/17/2023 11:37 AM [facility] MCHC 33.8 32.3 - 36.5 gm/dL 01/17/2023 11:37 AM [facility] RDW 13.1 11.6 - 14.4 % 01/17/2023 11:37 AM [facility] MPV 9.0(L) 9.4 - 12.4 fl 01/17/2023 11:37 AM [facility] Platelet Count 197 163 - 369 x10E9/L 01/17/2023 11:37 AM [facility] Neutrophils % 72.6 40.0 - 75.0 % 01/17/2023 11:37 AM [facility] Lymphocytes % 15.4(L) 19.3 - 53.1 % 01/17/2023 11:37 AM [facility] Monocytes % 10.1 4.7 - 12.5 % 01/17/2023 11:37 AM [facility] Eosinophils % 1.2 0.7 - 7.0 % 01/17/2023 11:37 AM [facility] Basophils % 0.3 0.1 - 1.2 % 01/17/2023 11:37 AM [facility] Immature Granulocytes 0.4 0 - 0.5 % 01/17/2023 11:37 AM [facility] Neutrophil Absolute 5.27 1.56 - 6.13 x10E9/L 01/17/2023 11:37 AM [facility] Lymphocytes Absolute 1.12(L) 1.18 - 3.74 x10E9/L 01/17/2023 11:37 AM [facility] Monocytes Absolute 0.73 0.24 - 0.86 x10E9/L 01/17/2023 11:37 AM [facility] Eosinophils Absolute 0.09 0.04 - 0.54 x10E9/L 01/17/2023 11:37 AM [facility] Basophils Absolute 0.02 0.01 - 0.08 x10E9/L 01/17/2023 11:37 AM [facility] Immature Granulocytes Absolute 0.03 0 - 0.03 x10E9/L 01/17/2023 11:37 AM [facility] nRBC Auto 0 <=0 /100 WBC 01/17/2023 11:37 AM [facility] nRBC Absolute 0.00 <=0 x10E9/L 01/17/2023 11:37 AM [facility] Blood BLOOD SPECIMEN / Unknown Lab Venipuncture / Unknown 01/17/2023 11:30 AM [facility] 01/17/2023 11:33 AM [facility] Eliana Enriquez MD LAB - HEMATOLOGY ORDERABLES Performing Organization Address City/State/[facility] Co de Phone Number [facility] [address] [place] [address] * GROSS + MICRO EXAM (ILL) (01/17/2023 10:44 AM [facility]) Case Report Surgical Pathology Report ? Case: [id number] ? Authorizing Provider: ??Eliana Enriquez MD ??Collected: ? 01/17/2023 10:44 AM ? Ordering Location: ? [facility] ? Received: ?01/18/2023 09:13 AM ? Pathologist: ? Dwight Mendez MD ? Specimen: ?Stomach Resect Sub, Stomach Remnants - Sleeve Gastrectomy ? 01/21/2023 12:25 PM [facility] Final Diagnosis Stomach, partial resection: Chronic gastritis with intestinal metaplasia, negative for Helicobacter. Comment: Helicobacter pylori IHC stain is negative. 01/21/2023 12:25 PM [facility] Microscopic Description and Comment Microscopic examination is performed and substantiates the above diagnosis. 01/21/2023 12:25 PM [facility] Gross Description The requisition [...] identified. The wall thickness is 0.1-0.2 cm. Diesel Technician sections are submitted in cassettes A1-A2 with sections subjacent to the staple line in A1. AW 01/21/2023 12:25 PM [facility] Pathologist Location at [facility] 01/21/2023 12:25 PM [facility] Disclaimer The performance characteristics of all immunohistochemical and indirect immunofluorescence stains (if any) cited in this report were determined by the Histopathology Laboratory of [facility]. Some of these tests were developed [...] H&E slides and special stains prepared at [facility], [place]. [address] (CLIA# [id number]) unless otherwise specified. This case was interpreted by the [facility] Department of Pathology. When applicable, select reference laboratory testing is performed at the [facility], [address] [place] [address]. 01/21/2023 12:25 PM [facility] Embedded Images 01/21/2023 12:25 PM [facility] Pathology/Cytolo gy SPECIMEN FROM STOMACH OBTAINED BY PARTIAL GASTRECTOMY / Unknown 01/17/2023 10:44 AM [facility] 01/18/2023 9:13 AM [facility] Comment:Pre-op diagnosis: Morbid obesity (CMS/HCC) [E66.01] Eliana Enriquez MD LAB - PATHOLOGY/ CYTOLOGY ORDERABLES Performing Organization Address City/State/[facility] Co de Phone Number [facility] [address] documented in this encounter Visit Diagnoses Diagnosis Vitamin D deficiency- Primary Morbid obesity (HCC) Morbid obesity Morbid obesity (HCC) Morbid obesity Morbid obesity (HCC) Morbid obesity Status post bariatric surgery Bariatric surgery status documented in this encounter Admitting Diagnoses Diagnosis Morbid obesity (HCC) Morbid obesity documented in this encounter Administered Medications Inactive Administered Medications - up to 3 most recent administrations Medication Order MAR Action Action Date Dose Rate Site acetaminophen (Tylenol) tablet 1,000 mg 1,000 mg, Oral, EVERY 6 HOURS, 20 doses, First dose on Tue01/18/23 at 0245, Last dose on Tue01/22/23 at 2045, To follow IV tylenol doses Patient preference for lesser PRN pain meds may be honored when the patient requests a less strong medication, a lower dose, or a less intrusive route of administration when the lesser drug, dose and route have been ordered for the patient. This patient request must be documented in the MAR., Post-op $ Given 01/18/2023 11:21 AM [facility] 1,000 mg $ Given 01/18/2023 3:10 AM [facility] 1,000 mg BUPivacaine liposome (Exparel) in NaCl irrigation PRN, Starting on Tue01/17/23 at 1057, Until Tue01/17/23 at 1216, Intra-op $ Given 01/17/2023 10:57 AM [facility] Operative Site dextrose 10 % IV bolus 12.5 g, at 468.75 mL/hr, Intravenous, PRN, Other, Bedside Glucose less than 70 mg/dL -If NOT able to eat and/or NPO and with IV Access, Starting on Tue01/17/23 at 1221, Until Tue01/18/23 at 1520, If NOT able to eat and/or NPO and with IV Access: For Bedside Glucose 54-69 mg/dL give 12.5 g Dextrose IV STAT For Bedside Glucose LESS than 54 mg/dl verify with a second Bedside Glucose (from a different site) and give 25 g Dextrose IV STAT Re-check and Re-treat blood glucose EVERY , 10-25 minutes until blood glucose GREATER than or equal to 80 mg/dl. NOTIFY PROVIDER OF HYPOGLYCEMIC EVENT., Post-op dextrose 10 % IV bolus 25 g, at 937.5 mL/hr, Intravenous, PRN, Other, Bedside Glucose less than 70 mg/dL -If NOT able to eat and/or NPO and with IV Access, Starting on Tue01/17/23 at 1221, Until Tue01/18/23 at 1520, If NOT able to eat and/or NPO and with IV Access: For Bedside Glucose 54-69 mg/dL - give 12.5 g Dextrose IV STAT For Bedside Glucose LESS than 54 mg/dl - verify with a second Bedside Glucose (from a different site) and give 25 g Dextrose IV STAT Re-check and Re-treat blood glucose EVERY - 10-25 minutes until blood glucose GREATER than or equal to 80 mg/dl. - If repeat bedside glucose 54-79 give 12.5 g Dextrose IV STAT NOTIFY PROVIDER OF HYPOGLYCEMIC EVENT., Post-op fentaNYL (PF) (Sublimaze) injection 50 mcg 50 mcg, Intravenous, EVERY 2 HOURS PRN, Moderate Pain, Starting on Tue01/17/23 at 1221, Until Tue01/18/23 at 1520, Patient preference for lesser PRN pain meds may be honored when the patient requests a less strong medication, a lower dose, or a less intrusive route of administration when the lesser drug, dose and route have been ordered for the patient. This patient request must be documented in the MAR., Post-op $ Given 01/17/2023 12:59 PM [facility] 50 mcg glucagon (Glucagen) injection 1 mg 1 mg, Subcutaneous, PRN, Bedside Glucose less than 70 mg/dL - If NOT able to eat and/or NPO and withOUT IV Access, Starting on Tue01/17/23 at 1221, Until Tue01/18/23 at 1520, If NOT able to eat and/or NPO and NO IV Access: For Bedside glucose 54-69 mg/dL ? - Give 1 mg subcutaneous For Bedside Glucose LESS than 54 mg/dl ? -?verify with a second bedside glucose (from a different site) ? -?Give 1 mg subcutaneous Re-check and Re-treat blood glucose EVERY 10-25 minutes until blood glucose GREATER than or equal to 80 mg/dl.? NOTIFY PROVIDER OF HYPOGLYCEMIC EVENT. Reconstitute vial with 1 mL of sterile water for injection for a final concentration of 1 mg/mL; shake vial gently; use immediately and discard unused portion, Post-op heparin injection 5,000 Units 5,000 Units, Subcutaneous, EVERY 8 HOURS, First dose on Tue01/18/23 at 0900, Until Discontinued, Post-op $ Given 01/18/2023 8:31 AM [facility] 5,000 Units Abdominal Tissue lactated ringers infusion at 75 mL/hr, Intravenous, PRE-OP CONTINUOUS, Starting on Tue01/17/23 at 0730, Until Tue01/18/23 at 1520, Pre-op Current Rate 01/18/2023 6:23 AM [facility] 75 mL/hr $ New Bag/Syringe 01/18/2023 3:21 AM [facility] 75 mL/ hr Restarted 01/17/2023 11:24 AM [facility] magnesium sulfate 2 g in 50 mL bolus 2 g, at 25 mL/hr, Administer over 120 Minutes, Intravenous, PRN, Low magnesium, Starting on Tue01/17/23 at 1221, Until Tue01/18/23 at 1520, If magnesium level is 1.6 - 2 administer magnesium sulfate IV 2 g over 2 hours. Repeat magnesium level 4 hours after infusion is complete. Call physician prior to administration if SCr > 2 mg/dl and/or urinary output is < 30 ml/hr. Rate Change 01/17/2023 1:57 PM [facility] 5 mL/hr Current Rate 01/17/2023 12:30 PM [facility] 25 mL/hr $ New Bag/Syringe 01/17/2023 12:30 PM [facility] [employer] 2 g 25 mL /hr magnesium sulfate 2 g in 50 mL bolus 2 g, at 25 mL/hr, Administer over 120 Minutes, Intravenous, PRN, magnesium replacement, Starting on Tue01/17/23 at 1221, Until Tue01/18/23 at 1520, Administer a 4 g and 2 g bag for a total of 6 g. If magnesium level is < 1.0 administer magnesium sulfate IV 6 g over 4 hours. Repeat magnesium level 4 hours after infusion is complete. Call physician prior to administration if SCr > 2 mg/dl and/or urinary output is < 30 ml/hr. $ New Bag/Syringe 01/18/2023 8:46 AM [facility] 2 g 25 mL/hr magnesium sulfate 4 g in 100 mL bolus 4 g, at 25 mL/hr, Administer over 240 Minutes, Intravenous, PRN, magnesium replacement, Starting on Tue01/17/23 at 1221, Until Tue01/18/23 at 1520, Administer a 4 g and 2 g bag for a total of 6 g. If magnesium level is < 1.0 administer magnesium sulfate IV 6 g over 4 hours. Repeat magnesium level 4 hours after infusion is complete. Call physician prior to administration if SCr > 2 mg/dl and/or urinary output is < 30 ml/hr. NaCl 0.9 % irrigation PRN, Starting on Tue01/17/23 at 1100, Until Tue01/17/23 at 1216, Intra-op $ Given 01/17/2023 11:00 AM [facility] 700 mL Operative Site pantoprazole (Protonix) injection 40 mg 40 mg, Intravenous, DAILY, First dose on Tue01/17/23 at 1130, Until Discontinued, For every 40 mg of pantoprazole mix with 10 mL Normal Saline (final concentration = 4 mg/mL). Inject SLOWLY over 2 min., Post-op $ Given 01/18/2023 8:32 AM [facility] 40 mg $ Given 01/17/2023 11:23 AM [facility] 40 mg thiamine (Vitamin B-1) 100 mg in 0.9% NaCl IV 50 mL IVPB 100 mg, at 100 mL/hr, Intravenous, DAILY, 3 doses, First dose on Tue01/17/23 at 1230, Last dose on Tue01/19/23 at 0900, Protect from light, Refrigerate, Post-op $ New Bag/Syringe 01/18/2023 8:42 AM [facility] 100 mg 100 m L/hr $ New Bag/Syringe 01/17/2023 1:34 PM [facility] 100 mg 100 mL /hr documented in this encounter Active and Recently Administered Medications Times are shown in [facility]. Scheduled Medication Order 01/16/2023 01/17/2023 01/18/2023 acetaminophen (Ofirmev) injection 1,000 mg (COMPLETED) 1,000 mg, at 400 mL/hr, Intravenous, ONCE, 1 dose, On Tue01/17/23 at 0845, See [employer] for renal dosing guidelines. Patient preference for lesser PRN pain meds may be honored when the patient requests a less strong medication, a lower dose, or a less intrusive route of administration when the lesser drug, dose and route have been ordered for the patient. This patient request must be documented in the MAR., Does your patient have an order for nothing by mouth or per tube (including meds) and a contraindication to rectal administration? Yes, Does your patient have a contraindication to NSAIDs (ie CrCl < 60 ml/min, increased risk of bleed, hypersensitivity to ASA or NSAIDs)? Yes, Is your patient either post-op colorectal, cardio-thoracic, or a case lasting > 5 hours? No, Pre-op 0941 ($ Given - Provider: Danny Wilkins APRN-STRUCTURAL MANAGER) acetaminophen (Ofirmev) injection 1,000 mg (COMPLETED) 1,000 mg, at 400 mL/hr, Intravenous, EVERY 6 HOURS, 2 doses, First dose on Tue01/17/23 at 1445, Last dose on Tue01/17/23 at 2045, See [employer] for renal dosing guidelines. Patient preference for lesser PRN pain meds may be honored when the patient requests a less strong medication, a lower dose, or a less intrusive route of administration when the lesser drug, dose and route have been ordered for the patient. This patient request must be documented in the MAR., Does your patient have an order for nothing by mouth or per tube (including meds) and a contraindication to rectal administration? No, Does your patient have a contraindication to NSAIDs (ie CrCl < 60 ml/min, increased risk of bleed, hypersensitivity to ASA or NSAIDs)? No, Is your patient either post-op colorectal, cardio-thoracic, or a case lasting > 5 hours? Yes 1439 ($ New Bag/Syringe - Provider: Kathryn Galvez RN)1454 (Stopped - Provider: Kathryn Galvez RN)2137 ($ New Bag/Syringe - Provider: Rere Villarreal RN)2138 (Stopped - Provider: Rere Villarreal RN) acetaminophen (Tylenol) tablet 1,000 mg 1,000 mg, Oral, EVERY 6 HOURS, 20 doses, First dose on Tue01/18/23 at 0245, Last dose on Tue01/22/23 at 2045, To follow IV tylenol doses Patient preference for lesser PRN pain meds may be honored when the patient requests a less strong medication, a lower dose, or a less intrusive route of administration when the lesser drug, dose and route have been ordered for the patient. This patient request must be documented in the MAR., Post-op 0310 ($ Given - Provider: Rere Villarreal RN)1121 ($ Given - Provider: Cristina De La Cruz RN) ceFAZolin (Ancef) 3 g in 0.9% NaCl IV 100 mL IVPB (COMPLETED) 3 g, at 200 mL/hr, Intravenous, PRE-OP ONCE, 1 dose, On Tue01/17/23 at 0730, Administer 30 minutes prior to surgical incision. Repeat dose in 3 hours if surgical incision not closed., Indication for anti-infective therapy: Surgical prophylaxis, Pre-op 0936 ($ New Bag/Syringe - Provider: Danny Wilkins APRN-STRUCTURAL MANAGER) celecoxib (CeleBREX) capsule 400 mg (COMPLETED) 400 mg, Oral, PRE-OP ONCE, 1 dose, On Tue01/17/23 at 0730, Patient preference for lesser PRN pain meds may be honored when the patient requests a less strong medication, a lower dose, or a less intrusive route of administration when the lesser drug, dose and route have been ordered for the patient. This patient request must be documented in the MAR., Pre-op 075 ($ Given - Provider: Marlene Cordero RN) famotidine (Pepcid) injection 20 mg (COMPLETED) 20 mg, Intravenous, PRE-OP ONCE, 1 dose, On Tue01/17/23 at 0730, Dilute 2 mL of injection with 0.9% NaCl or D5W solution to a volume of 5 to 10 ml. Push over a period of at least 2 minutes. Dilute with 0.9% NaCl, D5W solution, or SWI to a volume of 5 to 10 mL and administer over at least 2 minutes., Pre-op 08 ($ Given - Provider: Marlene Cordero RN) gabapentin (Neurontin) capsule 300 mg (COMPLETED) 300 mg, Oral, ONCE, 1 dose, On Tue01/17/23 at 0730, Pre-op 075 ($ Given - Provider: Marlene Cordero RN) heparin injection 5,000 Units (COMPLETED) 5,000 Units, Subcutaneous, PRE-OP ONCE, 1 dose, On Tue01/17/23 at 0730, Pre-op 075 ($ Given - Provider: Marlene Cordero RN) heparin injection 5,000 Units 5,000 Units, Subcutaneous, EVERY 8 HOURS, First dose on Tue01/18/23 at 0900, Until Discontinued, Post-op 0831 ($ Given - Provider: Melania L Maya, Nurse Polysomnography Technician)1400 (Due) insulin aspart (NovoLOG) pen 0-4 Units 0-4 Units, Subcutaneous, AT BEDTIME, First dose on Tue01/17/23 at 2100, Until Discontinued, Low Dose: Correction Insulin Bedside glucose should be done within 30-60 minutes of correction insulin administration. BG (mg/dL) Corrective Action LESS than 70 follow Hypoglycemic guidelines, 70-220 NO bedtime correction insulin 221-260 GIVE 1 unit of insulin 261-300 GIVE 2 units of insulin 301-350 GIVE 3 units of insulin Greater than 350 GIVE 4 units of insulin and notify physician, Post-op 2200 (Not Administered - Provider: Rere Villarreal, LUZ - Reason: Per Administration Instructions) insulin aspart (NovoLOG) pen 0-6 Units 0-6 Units, Subcutaneous, 3 TIMES DAILY WITH MEALS, First dose on Tue01/17/23 at 1230, Until Discontinued, Low Dose: Correction Insulin Bedside glucose should be done within 30-60 minutes of correction insulin administration. BG (mg/dL) Corrective Action LESS than 70 follow Hypoglycemic guidelines, 70-180 NO Correction insulin, 181-220 GIVE 2 units of insulin, 221-260 GIVE 3 units of insulin, 261-300 GIVE 4 units of insulin, 301-350 GIVE 5 units of insulin, Greater than 350 GIVE 6 units of insulin and notify physician. If the patient is NPO: DO NOT HOLD correction insulin If patient is eating meals and has orders for Mealtime insulin, combine and give at the same time., Post-op 1230 (Not Administered - Provider: Kathryn Galvez RN - Reason: See Comments - Comment: bs [phone])1731 (Not Administered - Provider: Kathryn Galvez RN - Reason: See Comments - Comment: [phone]) 0621 (Not Administered - Provider: Rere Villarreal RN - Reason: Per Administration Instructions)1120 (Not Administered - Provider: Cristina De La Cruz RN - Reason: Per Administration Instructions) metoclopramide (Reglan) injection 10 mg (COMPLETED) 10 mg, Intravenous, PRE-OP ONCE, 1 dose, On Tue01/17/23 at 0730, Pre-op 0805 ($ Given - Provider: Marlene Cordero, LUZ) metoclopramide (Reglan) injection 10 mg (COMPLETED)(Linked Group 1) 10 mg, Intravenous, EVERY 6 HOURS, 4 doses, First dose on Tue01/17/23 at 1445, Last dose on Tue01/18/23 at 0845, Inject undiluted IV slowly over 1 to 2 minutes., Post-op 1415 ($ Given - Provider: Kathryn Galvez, RN)2131 ($ Given - Provider: Rere Villarreal, RN) 0310 ($ Given - Provider: Rere Villarreal, RN)0831 ($ Given - Provider: Melania Trejo, Nurse Polysomnography Technician) ondansetron (Zofran) injection 4 mg (COMPLETED) 4 mg, Intravenous, PRE-OP ONCE, 1 dose, On Tue01/17/23 at 0730, Pre-op 0805 ($ Given - Provider: Marlene Cordero RN) ondansetron (Zofran) injection 4 mg (COMPLETED)(Linked Group 2) 4 mg, Intravenous, EVERY 6 HOURS, 4 doses, First dose on Tue01/17/23 at 1745, Last dose on Tue01/18/23 at 1145, Administer over 2 to 5 minutes., Post-op 1730 ($ Given - Provider: Kathryn Galvez RN) 0040 ($ Given - Provider: Rere Villarreal, LUZ)0615 ($ Given - Provider: Rere Villarreal, LUZ)1123 ($ Given - Provider: Cristina De La Cruz, LUZ) pantoprazole (Protonix) injection 40 mg 40 mg, Intravenous, DAILY, First dose on Tue01/17/23 at 1130, Until Discontinued, For every 40 mg of pantoprazole mix with 10 mL Normal Saline (final concentration = 4 mg/mL). Inject SLOWLY over 2 min., Post-op 1123 ($ Given - Provider: Genny Amador RN) 0832 ($ Given - Provider: Melania Trejo, Nurse Polysomnography Technician) scopolamine (Transderm-Scop) 1 patch(Linked Group 3) 1 patch, Administer over 72 Hours, PRE-OP ONCE, 1 dose, On Tue01/17/23 at 0730, Apply patch behind the ear, do not cut patch, only 1 patch should be worn at a time and remove old patch before applying new patch.This patch may contain metal and is not compatible with MRI. Notify radiology of patch location upon arrival to MRI. Each patch contains 1.5 mg scopolamine base and is formulated to deliver 1 mg of scopolamine over 72 hours. 0749 ($ Applied - Provider: Marlene Cordero RN) 1418 (Due: Removed - Provider: Generic, Auto Release - Comment: Time automatically adjusted from order being discontinued) thiamine (Vitamin B-1) 100 mg in 0.9% NaCl IV 50 mL IVPB 100 mg, at 100 mL/hr, Intravenous, DAILY, 3 doses, First dose on Tue01/17/23 at 1230, Last dose on Tue01/19/23 at 0900, Protect from light, Refrigerate, Post-op 1334 ($ New Bag/Syringe - Provider: Kathryn Galvez RN)1404 (Stopped - Provider: Kathryn Galvez RN) 0842 ($ New Bag/Syringe - Provider: Melania Trejo, Nurse Polysomnography Technician)0916 (Stopped - Provider: Cristina De La Cruz RN) Continuous Medication Order 01/16/2023 01/17/2023 01/18/2023 lactated ringers infusion at 75 mL/hr, Intravenous, PRE-OP CONTINUOUS, Starting on Tue01/17/23 at 0730, Until Tue01/18/23 at 1520, Pre-op 0805 ($ New Bag/Syringe - Provider: Marlene Cordero RN)0918 (Rate Change - Provider: SOFIA Macias)1123 (Paused - Provider: SOFIA Macias - Comment: Switch to gravity)1124 (Restarted - Provider: SOFIA Macias) 0319 (Stopped - Provider: Rere Villarreal, RN)0321 ($ New Bag/Syringe - Provider: Rere Villarreal, RN)0623 (Current Rate - Provider: Rere Villarreal, RN) lactated ringers infusion () at 150 mL/hr, Intravenous, CONTINUOUS, Starting on Tue01/17/23 at 1230, Until Tue01/18/23 at 1229, Post-op 1231 ($ New Bag/Syringe - Provider: Kathryn Galvez RN)1334 (Paused - Provider: Rere Villarreal, LUZ)1404 (Restarted - Provider: Rere Villarreal, LUZ)1415 (Current Rate - Provider: Rere iVllarreal, RN)2019 (Rate Change - Provider: Rere Villarreal, LUZ)2030 (Rate Change - Provider: Rere Villarreal, LUZ)203 ($ New Bag/Syringe - Provider: Lauren Fields, RN) 0300 (Rate Change - Provider: Rere Villarreal, RN)0306 (Rate Change - Provider: Rere Villarreal, RN)1120 (Stopped - Provider: Cristina De La Cruz RN) PRN Medication Order 01/16/2023 01/17/2023 01/18/2023 BUPivacaine liposome (Exparel) in NaCl irrigation (CANCELED) PRN, Starting on Tue01/17/23 at 1057, Until Tue01/17/23 at 1216, Intra-op 1057 ($ Given - Provider: Eliana Enriquez MD) dextrose 10 % IV bolus(Linked Group 4) 12.5 g, at 468.75 mL/hr, Intravenous, PRN, Other, Bedside Glucose less than 70 mg/dL -If NOT able to eat and/or NPO and with IV Access, Starting on Tue01/17/23 at 1221, Until Tue01/18/23 at 1520, If NOT able to eat and/or NPO and with IV Access: For Bedside Glucose 54-69 mg/dL give 12.5 g Dextrose IV STAT For Bedside Glucose LESS than 54 mg/dl verify with a second Bedside Glucose (from a different site) and give 25 g Dextrose IV STAT Re-check and Re-treat blood glucose EVERY , 10-25 minutes until blood glucose GREATER than or equal to 80 mg/dl. NOTIFY PROVIDER OF HYPOGLYCEMIC EVENT., Post-op dextrose 10 % IV bolus(Linked Group 4) 25 g, at 937.5 mL/hr, Intravenous, PRN, Other, Bedside Glucose less than 70 mg/dL -If NOT able to eat and/or NPO and with IV Access, Starting on Tue01/17/23 at 1221, Until Tue01/18/23 at 1520, If NOT able to eat and/or NPO and with IV Access: For Bedside Glucose 54-69 mg/dL - give 12.5 g Dextrose IV STAT For Bedside Glucose LESS than 54 mg/dl - verify with a second Bedside Glucose (from a different site) and give 25 g Dextrose IV STAT Re-check and Re-treat blood glucose EVERY - 10-25 minutes until blood glucose GREATER than or equal to 80 mg/dl. - If repeat bedside glucose 54-79 give 12.5 g Dextrose IV STAT NOTIFY PROVIDER OF HYPOGLYCEMIC EVENT., Post-op diphenhydrAMINE (Benadryl) capsule 25 mg 25 mg, Oral, EVERY 6 HOURS PRN, Itching, Starting on Tue01/17/23 at 1221, Until Tue01/18/23 at 1520, When tolerating PO., Post-op diphenhydrAMINE (Benadryl) injection 25 mg 25 mg, Intravenous, EVERY 6 HOURS PRN, Itching, Starting on Tue01/17/23 at 1221, Until Tue01/18/23 at 1520, Until tolerating PO., Post-op fentaNYL (PF) (Sublimaze) injection 25 mcg (CANCELED) 25 mcg, Intravenous, EVERY 10 MIN PRN, Mild Pain, 4 doses, Starting on Tue01/17/23 at 1121, Until Tue01/17/23 at 1219, Maximum total of 4 doses. If patient reaches max total dose, please consult anesthesiologist prior to further administration of pain meds. Hold pain meds if there are signs of hypoventilation. Patient preference for lesser PRN pain meds may be honored when the patient requests a less strong medication, a lower dose, or a less intrusive route of administration when the lesser drug, dose and route have been ordered for the patient. This patient request must be documented in the MAR., PACU 1154 ($ Given - Provider: Genny Amador RN) fentaNYL (PF) (Sublimaze) injection 37.5 mcg (CANCELED) 37.5 mcg, Intravenous, EVERY 10 MIN PRN, Moderate Pain, 4 doses, Starting on Tue01/17/23 at 1121, Until Tue01/17/23 at 1219, Maximum total of 4 doses. If patient reaches max total dose, please consult anesthesiologist prior to further administration of pain meds. Hold pain meds if there are signs of hypoventilation. Patient preference for lesser PRN pain meds may be honored when the patient requests a less strong medication, a lower dose, or a less intrusive route of administration when the lesser drug, dose and route have been ordered for the patient. This patient request must be documented in the MAR., PACU 1129 ($ Given - Provider: Genny Amador, LUZ)1142 ($ Given - Provider: Genny Amador RN) fentaNYL (PF) (Sublimaze) injection 50 mcg 50 mcg, Intravenous, EVERY 2 HOURS PRN, Moderate Pain, Starting on Tue01/17/23 at 1221, Until Tue01/18/23 at 1520, Patient preference for lesser PRN pain meds may be honored when the patient requests a less strong medication, a lower dose, or a less intrusive route of administration when the lesser drug, dose and route have been ordered for the patient. This patient request must be documented in the MAR., Post-op 1259 ($ Given - Provider: Kathryn Galvez RN) glucagon (Glucagen) injection 1 mg(Linked Group 4) 1 mg, Subcutaneous, PRN, Bedside Glucose less than 70 mg/dL - If NOT able to eat and/or NPO and withOUT IV Access, Starting on Tue01/17/23 at 1221, Until Tue01/18/23 at 1520, If NOT able to eat and/or NPO and NO IV Access: For Bedside glucose 54-69 mg/dL ? - Give 1 mg subcutaneous For Bedside Glucose LESS than 54 mg/dl ? -?verify with a second bedside glucose (from a different site) ? -?Give 1 mg subcutaneous Re-check and Re-treat blood glucose EVERY 10-25 minutes until blood glucose GREATER than or equal to 80 mg/dl.? NOTIFY PROVIDER OF HYPOGLYCEMIC EVENT. Reconstitute vial with 1 mL of sterile water for injection for a final concentration of 1 mg/mL; shake vial gently; use immediately and discard unused portion, Post-op hydrALAZINE (Apresoline) injection 10 mg 10 mg, Intravenous, EVERY 4 HOURS PRN, If SBP is 160 mmHg or greater &/or DBP is 100 mmHg or greater, Starting on Tue01/17/23 at 1221, Until Tue01/18/23 at 1520, Post-op magnesium hydroxide (Milk Of Magnesia) suspension 30 mL 30 mL, Oral, DAILY PRN, Constipation, Starting on Tue01/19/23 at 0000, Until Tue01/18/23 at 1520, Shake well before using., Post-op magnesium sulfate 2 g in 50 mL bolus 2 g, at 25 mL/hr, Administer over 120 Minutes, Intravenous, PRN, Low magnesium, Starting on Tue01/17/23 at 1221, Until Tue01/18/23 at 1520, If magnesium level is 1.6 - 2 administer magnesium sulfate IV 2 g over 2 hours. Repeat magnesium level 4 hours after infusion is complete. Call physician prior to administration if SCr > 2 mg/dl and/or urinary output is < 30 ml/hr. 1230 ($ New Bag/Syringe - Provider: Kathryn Galvez, LUZ)1230 (Current Rate - Provider: Rere Villarreal, LUZ)1357 (Rate Change - Provider: Rere Villarreal, RN)1413 (Stopped - Provider: Rere Villarreal, LUZ)1417 (Stopped - Provider: Kathryn Galvez RN) magnesium sulfate 2 g in 50 mL bolus(Linked Group 5) 2 g, at 25 mL/hr, Administer over 120 Minutes, Intravenous, PRN, magnesium replacement, Starting on Tue01/17/23 at 1221, Until Tue01/18/23 at 1520, Administer a 4 g and 2 g bag for a total of 6 g. If magnesium level is < 1.0 administer magnesium sulfate IV 6 g over 4 hours. Repeat magnesium level 4 hours after infusion is complete. Call physician prior to administration if SCr > 2 mg/dl and/or urinary output is < 30 ml/hr. 0846 ($ New Bag/Syringe - Provider: Melania Trejo, Nurse Polysomnography Technician)1046 (Stopped - Provider: Cristina De La Cruz RN) magnesium sulfate 4 g in 100 mL bolus 4 g, at 25 mL/hr, Administer over 240 Minutes, Intravenous, PRN, Low magnesium, Starting on Tue01/17/23 at 1221, Until Tue01/18/23 at 1520, If magnesium level is 1.1 - 1.5 administer magnesium sulfate IV 4 g over 4 hours. Repeat magnesium level 4 hours after infusion is complete. Call physician prior to administration if SCr > 2 mg/dl and/or urinary output is < 30 ml/hr. magnesium sulfate 4 g in 100 mL bolus(Linked Group 5) 4 g, at 25 mL/hr, Administer over 240 Minutes, Intravenous, PRN, magnesium replacement, Starting on Tue01/17/23 at 1221, Until Tue01/18/23 at 1520, Administer a 4 g and 2 g bag for a total of 6 g. If magnesium level is < 1.0 administer magnesium sulfate IV 6 g over 4 hours. Repeat magnesium level 4 hours after infusion is complete. Call physician prior to administration if SCr > 2 mg/dl and/or urinary output is < 30 ml/hr. metoclopramide (Reglan) injection 10 mg(Linked Group 1) 10 mg, Intravenous, EVERY 6 HOURS PRN, Nausea/Vomiting, Starting on Tue01/18/23 at 1445, Until Tue01/18/23 at 1520, Inject undiluted IV slowly over 1 to 2 minutes. If multiple PRN anti-emetic orders, use first line agent. If ineffective or not tolerated advance to next line agent: First line: ondansetron Second line: metoclopramide , Post-op metoprolol (Lopressor) injection 5 mg 5 mg, Intravenous, EVERY 4 HOURS PRN, BP>140/100. Hold if HR<60bpm., Starting on Tue01/17/23 at 1221, Until Tue01/18/23 at 1520, Post-op NaCl 0.9 % irrigation (CANCELED) PRN, Starting on Tue01/17/23 at 1100, Until Tue01/17/23 at 1216, Intra-op 1100 ($ Given - Provider: Eliana Enriquez MD) ondansetron (Zofran) injection 4 mg (COMPLETED) 4 mg, Intravenous, ONCE PRN, Nausea/Vomiting, 1 dose, Starting on Tue01/17/23 at 1121, Until Tue01/17/23 at 1133, First choice, PACU 1133 ($ Given - Provider: Genny Amador RN) ondansetron (Zofran) injection 4 mg(Linked Group 2) 4 mg, Intravenous, EVERY 6 HOURS PRN, Nausea/Vomiting, Starting on Tue01/18/23 at 1745, Until Tue01/18/23 at 1520, Administer over 2 to 5 minutes. If multiple PRN anti-emetic orders, use first line agent. If ineffective or not tolerated advance to next line agent: First line: ondansetron Second line: metoclopramide , Post-op oxyCODONE (immediate release) (Roxicodone) tablet 10 mg 10 mg, Oral, EVERY 4 HOURS PRN, Severe Pain, Starting on Tue01/17/23 at 1221, Until Tue01/18/23 at 1520, Patient preference for lesser PRN pain meds may be honored when the patient requests a less strong medication, a lower dose, or a less intrusive route of administration when the lesser drug, dose and route have been ordered for the patient. This patient request must be documented in the MAR., Allow a repeat dose for severe pain? No, Post-op oxyCODONE (immediate release) (Roxicodone) tablet 5 mg 5 mg, Oral, EVERY 4 HOURS PRN, Moderate Pain, Starting on Tue01/17/23 at 1221, Until Tue01/18/23 at 1520, Patient preference for lesser PRN pain meds may be honored when the patient requests a less strong medication, a lower dose, or a less intrusive route of administration when the lesser drug, dose and route have been ordered for the patient. This patient request must be documented in the MAR., Post-op potassium chloride 40 mEq in 270 mL bolus 40 mEq, at 67.5 mL/hr, Administer over 4 Hours, Intravenous, PRN, potassium replacement, Starting on Tue01/17/23 at 1221, Until Tue01/18/23 at 1520, If potassium < 3.5 mEq/L administer 40 mEq potassium chloride IVPB. Recheck potassium 4 hours after infusion. If potassium < 2.5 mEq/L notify physician. potassium phosphate 15 mmol in 250 mL bolus 15 mmol, at 62.5 mL/hr, Administer over 4 Hours, Intravenous, PRN, serum phosphorus level is 2.0 - 2.5 mg/dL, Starting on Tue01/17/23 at 1221, Until Tue01/18/23 at 1520, If serum phosphorus level is 2.0 - 2.5 mg/dL administer potassium phosphate 15 mmol bolus IV over 4 hours. Call physician prior to administration if serum potassium is > 4.0 mEq/L 3 mmol phosphate = 4.4 mEq potassium potassium phosphate 20 mmol in d5w 250 mL bolus premix 20 mmol, at 62.5 mL/hr, Administer over 4 Hours, Intravenous, PRN, serum phosphorus level is 1.0 - 1.9 mg/dL, Starting on Tue01/17/23 at 1221, Until Tue01/18/23 at 1520, If serum phosphorus level is 1.0 - 1.9 mg/dL administer potassium phosphate 20 mmol bolus IV over 4 hours. Repeat serum phosphorus level 2 hours after infusion is complete. Call physician prior to administration if serum potassium is > 4.0 mEq/L 3 mmol phosphate = 4.4 mEq potassium potassium phosphate 30 mmol in d5w 260 mL bolus premix 30 mmol, at 43.33 mL/hr, Administer over 6 Hours, Intravenous, PRN, serum phosphorus level is < 1.0 mg/dL, Starting on Tue01/17/23 at 1221, Until Tue01/18/23 at 1520, If serum phosphorus level is < 1.0 mg/dL administer potassium phosphate 30 mmol bolus IV over 4 hours. Repeat serum phosphorus level 2 hours after infusion is complete. Call physician prior to administration if serum potassium is > 4.0 mEq/L 3 mmol phosphate = 4.4 mEq potassium Linked Groups Order Group 1: metoclopramide (Reglan) injection 10 mg (COMPLETED)Jump to med 10 mg, Intravenous, EVERY 6 HOURS, 4 doses, First dose on Tue01/17/23 at 1445, Last dose on Tue01/18/23 at 0845, Inject undiluted IV slowly over 1 to 2 minutes., Post-op Followed by metoclopramide (Reglan) injection 10 mgJump to med 10 mg, Intravenous, EVERY 6 HOURS PRN, Nausea/Vomiting, Starting on Tue01/18/23 at 1445, Until Tue01/18/23 at 1520, Inject undiluted IV slowly over 1 to 2 minutes. If multiple PRN anti-emetic orders, use first line agent. If ineffective or not tolerated advance to next line agent: First line: ondansetron Second line: metoclopramide , Post-op Group 2: ondansetron (Zofran) injection 4 mg (COMPLETED)Jump to med 4 mg, Intravenous, EVERY 6 HOURS, 4 doses, First dose on Tue01/17/23 at 1745, Last dose on Tue01/18/23 at 1145, Administer over 2 to 5 minutes., Post-op Followed by ondansetron (Zofran) injection 4 mgJump to med 4 mg, Intravenous, EVERY 6 HOURS PRN, Nausea/Vomiting, Starting on Tue01/18/23 at 1745, Until Tue01/18/23 at 1520, Administer over 2 to 5 minutes. If multiple PRN anti-emetic orders, use first line agent. If ineffective or not tolerated advance to next line agent: First line: ondansetron Second line: metoclopramide , Post-op Group 3: scopolamine (Transderm-Scop) 1 patchJump to med 1 patch, Administer over 72 Hours, PRE-OP ONCE, 1 dose, On Tue01/17/23 at 0730, Apply patch behind the ear, do not cut patch, only 1 patch should be worn at a time and remove old patch before applying new patch.This patch may contain metal and is not compatible with MRI. Notify radiology of patch location upon arrival to MRI. Each patch contains 1.5 mg scopolamine base and is formulated to deliver 1 mg of scopolamine over 72 hours. And scopolamine patch placement confirmation (CANCELED) Transdermal, 2 TIMES DAILY, First dose on Tue01/17/23 at 0900, Until Discontinued, Patient has a patch to be confirmed on transition to inpatient and 2 times daily., Pre-op Group 4: dextrose 10 % IV bolusJump to med 12.5 g, at 468.75 mL/hr, Intravenous, PRN, Other, Bedside Glucose less than 70 mg/dL -If NOT able to eat and/or NPO and with IV Access, Starting on Tue01/17/23 at 1221, Until Tue01/18/23 at 1520, If NOT able to eat and/or NPO and with IV Access: For Bedside Glucose 54-69 mg/dL give 12.5 g Dextrose IV STAT For Bedside Glucose LESS than 54 mg/dl verify with a second Bedside Glucose (from a different site) and give 25 g Dextrose IV STAT Re-check and Re-treat blood glucose EVERY , 10-25 minutes until blood glucose GREATER than or equal to 80 mg/dl. NOTIFY PROVIDER OF HYPOGLYCEMIC EVENT., Post-op Or dextrose 10 % IV bolusJump to med 25 g, at 937.5 mL/hr, Intravenous, PRN, Other, Bedside Glucose less than 70 mg/dL -If NOT able to eat and/or NPO and with IV Access, Starting on Tue01/17/23 at 1221, Until Tue01/18/23 at 1520, If NOT able to eat and/or NPO and with IV Access: For Bedside Glucose 54-69 mg/dL - give 12.5 g Dextrose IV STAT For Bedside Glucose LESS than 54 mg/dl - verify with a second Bedside Glucose (from a different site) and give 25 g Dextrose IV STAT Re-check and Re-treat blood glucose EVERY - 10-25 minutes until blood glucose GREATER than or equal to 80 mg/dl. - If repeat bedside glucose 54- 79 give 12.5 g Dextrose IV STAT NOTIFY PROVIDER OF HYPOGLYCEMIC EVENT., Post-op Or glucagon (Glucagen) injection 1 mgJump to med 1 mg, Subcutaneous, PRN, Bedside Glucose less than 70 mg/dL - If NOT able to eat and/or NPO and withOUT IV Access, Starting on Tue01/17/23 at 1221, Until Tue01/18/23 at 1520, If NOT able to eat and/or NPO and NO IV Access: For Bedside glucose 54- 69 mg/dL ? - Give 1 mg subcutaneous For Bedside Glucose LESS than 54 mg/dl ? -?verify with a second bedside glucose (from a different site) ? -?Give 1 mg subcutaneous Re-check and Re-treat blood glucose EVERY 10-25 minutes until blood glucose GREATER than or equal to 80 mg/dl.? NOTIFY PROVIDER OF HYPOGLYCEMIC EVENT. Reconstitute vial with 1 mL of sterile water for injection for a final concentration of 1 mg/mL; shake vial gently; use immediately and discard unused portion, Post-op Group 5: magnesium sulfate 4 g in 100 mL bolusJump to med 4 g, at 25 mL/hr, Administer over 240 Minutes, Intravenous, PRN, magnesium replacement, Starting on Tue01/17/23 at 1221, Until Tue01/18/23 at 1520, Administer a 4 g and 2 g bag for a total of 6 g. If magnesium level is < 1.0 administer magnesium sulfate IV 6 g over 4 hours. Repeat magnesium level 4 hours after infusion is complete. Call physician prior to administration if SCr > 2 mg/dl and/or urinary output is < 30 ml/hr. And magnesium sulfate 2 g in 50 mL bolusJump to med 2 g, at 25 mL/hr, Administer over 120 Minutes, Intravenous, PRN, magnesium replacement, Starting on Tue01/17/23 at 1221, Until Tue01/18/23 at 1520, Administer a 4 g and 2 g bag for a total of 6 g. If magnesium level is < 1.0 administer magnesium sulfate IV 6 g over 4 hours. Repeat magnesium level 4 hours after infusion is complete. Call physician prior to administration if SCr > 2 mg/dl and/or urinary output is < 30 ml/hr. documented in this encounter Care Teams Patent Lawyer Relationship Specialty Start Date End Date Betty Rodriguez MD [address] [place] [id number] PCP - General Internal Medicine 09/02/22 documented as of this encounter
--- OUTSIDE RECORDS SUMMARY | 2024-02-06 01:12 | XMS_ITS | Encounter Summary ---
Author Organization [facility] Address [address] [place] [address] Care Team Providers Care Principal Web Developer Name Role Phone Betty Rodriguez MD Primary Care Provider [phone] Reason for Visit * Reason Onset Date Comments Pre-op Instructions 01/12/2023 Encounter Details Date Type Department Care Team (Late st Contact Info) Description 01/12/2023 Telephone [facility] Management [facility] [address] [place] [phone] Lisa Perez RN Pre-op Instructions Social [...] Encounter - Lisa Perez RN - 01/12/2023 10:59 AM CST Encounter opened in error. Please disregard. ACT CENTER AGENT documented in this encounter Plan of Treatment Upcoming Encounters Date Type Department Care Team (Latest Contact Info) Description 04/25/2024 9:44 AM CDT Hospital Encounter [facility] [address] [place] [address] Eliana Enriquez MD [address] [place] [address] Surgery General 04/25/2024 9:44 AM CDT - 04/25/2024 10:10 AM CDT Surgery [facility] [address] [place] [address] Eliana Enriquez MD [address] [place] [address] ESOPHAGOGASTRODUODENOSCOPY WITH BIOPSY 05/03/2024 9:30 AM CDT Office Visit [facility] [address] [place] [address] Eliana Enriquez MD [address] [place] [address] 07/19/2024 9:00 AM CDT Office Visit [facility] [address] [place] [facility] [place] [address] Anusha Campa, RESIDENT MANAGER-RANGE AID [address] [facility] [place] [address] 01/18/2025 9:00 AM CONTACT CENTER AGENT Clinical Support [facility] [address] [place] [phone] 01/18/2025 9:30 AM CONTACT CENTER AGENT Office Visit [facility] [address] [place] [phone] Anusha Campa, RESIDENT MANAGER-[employer]ANGE [employer] [address], [place] [phone] Scheduled Procedures Name Priority Associated Diagnoses Date/Ti in ESOPHAGOGASTRODUODENOSCOPY ( EGD) BIOPSY Status post bariatric surgery 04/25/2024 9:44 AM CDT documented as of this encounter Visit Diagnoses Not on filedocumented in this encounter Care Teams Principal Web Developer Relationship Specialty Start Date End Date Betty Rodriguez MD [address] [place] [address] PCP - General Internal Medicine 09/02/22 documented as of this encounter
--- OUTSIDE RECORDS SUMMARY | 2024-02-06 01:12 | XMS_ITS | Encounter Summary ---
Author Organization [facility] Address [address] [place] [address] Care Team Providers Care Park Guard Name Role Phone Betty Rodriguez MD Primary Care Provider [phone] Reason for Visit * Auth/Cert (Routine) Specialty Diagnoses / Procedures Referred By Contac t Referred To Contact Diagnoses Gastric ulcer, unspecified chronicity, unspecified whether gastric ulcer hemorrhage or perforation present Gastric ulcer, unspecified chronicity, unspecified whether gastric ulcer hemorrhage or perforation present [K25.9] Procedures ME EGD FLEX TRANSORAL W BX SNGL OR MULT ESOPHAGOGASTRODUODENOSCOPY (EGD) BIOPSY Referral ID Status Reason Start Date Expiration Date Visits Re quested Visits Authorized [id number] 1 1 Encounter Details Date Type Department Care Team (Latest Contact Info) Description 12/13/2022 6:05 AM CDT - 12/13/2022 10:50 AM CDT Hospital Encounter [facility] [address] [place] [address] Eliana Enriquez MD [address] [place] [phone] Surgery General Discharge Disposition: Home or Self Care Social History Tobacco Use Types Packs/Day Years [...] Sign Reading Time Taken Comments Blood Pressure 114/69 12/13/2022 10:40 AM CDT Pulse 68 12/13/2022 10:40 AM CDT Temperature 36.2 ??C (97.2 ??F) 12/13/2022 9:43 AM CD T Respiratory Rate 19 12/13/2022 10:4 0 AM CDT Oxygen Saturation 100% 12/13/2022 10: 40 AM CDT Inhaled Oxygen Concentration - - Weight 147.1 kg (324 lb 4.8 oz) 12/13/2022 6:47 AM CDT Height 182.9 cm (6') 12/13/2022 6:47 AM CDT Body Mass Index 43.98 12/13/2022 6:47 AM CDT documented in this encounter Functional [...] No 11/12/2022 documented as of this encounter Medications at Time of Discharge Medication Sig Dispensed Refills Start Date End Date atorvastatin (Lipitor) 40 MG tablet Take 1 (one) tablet by mouth at bedtime 01/12/2023 Coenzyme Q10 (CO Q 10 PO) 01/12/2023 lisinopril-hydroCHLOR Othiazide (Prinzide; Zestoretic) 10-12.5 MG tablet Take 1 (one) tablet by mouth once daily 01/10/2023 Multiple Vitamins-Minerals (Centrum Silver) TABS Take 1 (one) tablet by mouth daily with food 02/18/2023 omeprazole (PriLOSEC) 40 MG capsule Take 1 (one) capsule by mouth 2 times daily, before breakfast and supper 60 capsule 3 11/12/2022 01/10/2023 vitamin D, ergocalciferol, (Drisdol) 1.25 MG (21164 UT) capsuleIndications:Vi tamin D Deficiency Take 1 (one) capsule by mouth every 7 days Reasons: Vitamin D Deficiency 4 capsule 3 09/15/2022 01/18/2023 documented as of this encounter H&P Notes * Eliana Enriquez MD - 12/13/2022 9:20 AM CDT Admit Date: 12/13/22 This patient? s prior H&P was reviewed, the patient was examined and no change has occurred in the patient's condition since the prior H&P was completed. Eliana Enriquez MD Source Note - Shanel Ware APRN-CNP - 12/01/2022 11:10 AM CDT [facility] [place] [address] . . Date of encounter: No admission date for patient encounter. Provider: PREET Silver Patient: Jayesh Anderson CSN: [id number] Specialty: Bariatric Surgery Date of : 1955 Visit type: Bariatrics Pre-operative follow up Jayesh Anderson 67 year old male was referred by Betty Rodriguez MD for Bariatrics pre-op follow up. Bariatric Preop HPI he was seen in clinic last on 11/08/22. The procedure requested is Sleeve Gastrectomy. Patient is attending support group meeting. The patient has been participating in an online supportgroup. No of support group meeting attended 05/17 Patient is taking 30 grams of proteins supplements daily. Patient is taking 64+ oz of fluid per day. Reviewed 24 hour food recall with pt. Opportunities for improvement note: Food choices were good. Portion sizes were appropriate. Doing 20 minutes of exercise daily. [...] Total Wt Loss in lb: 38.6 lb Obesity History Years of being overweight? 40yrs Age of first weight loss attempt? 18 Highest weight as an adult? 320 Goal Weight? 200 Past Medical History: Diagnosis Date ??? HTN (hypertension) Past Surgical History: Procedure Laterality Date ??? COLONOSCOPY WITH POLYPECTOMY N/A 11/12/2022 N/A; COLONOSCOPY with polypectomy ??? ENDOSCOPY, UPPER N/A 11/12/2022 N/A; ESOPHAGOGASTRODUODENOSCOPY with biopsy ??? Lumbar Diskectomy ??? Meniscectomy Bilateral Social [...] Sexual Activity ??? Alcohol use: Yes Comment: 2-3 drinks ??? Drug use: Never ??? Sexual activity: [...] Outpatient Medications Marked as Taking for the 12/01/22 encounter (Office Visit) with Shanel Ware APRN-AMADOU Medication Sig ??? atorvastatin (Lipitor) 40 MG [...] 2 times daily, before breakfast and supper ? ? sucralfate (Carafate) 1 GM tablet Take 1 (one) tablet by mouth 4 times daily - before meals & nightly Crush tablet in small amount of liquid prior to taking ??? vitamin D, ergocalciferol, (Drisdol) 1.25 MG (49824 UT) capsule Take 1 (one) capsule by mouth every 7 days Reasons: Vitamin D Deficiency (Not in a hospital admission) No Known Allergies Objective: Vital Signs: BP 130/72 Pulse 84 Temp 96.9 ??F (36.1 ??C) (Temporal) Resp 20 Ht 1.829 m (6') Wt (!) 149.8 kg (330 lb 3.2 oz) SpO2 95% Weight: (!) 149.8 kg (330 lb 3.2 oz) Height: 182.9 cm (6') Body mass index is 44.78 kg/m??. Physical Exam: Constitutional: Alert, awake and [...] No palpable visceromegaly. No palpableventral hernias. Skin: [place] and moist. No ulcers, rashes, or lesions. Extremities: Well perfused. No gross joint deformity noted Neurological: Cranial nerves 2-12 were grossly intact. Psychiatric: The patient's mood and affect appeared to be appropriate Labs No results for input(s): WBC , RBC , HGB , HCT , PLTCOUNT in the last 28477 hours. No results for input(s): SODIUM , POTASSIUM , CO2 , BUN , CREATININE in the last 35271 hours. Invalid input(s): CLORIDE No results for input(s): GLUCOSE in the last 71874 hours. No results for input(s): AST , ALT in the last 99337 hours. No results for input(s): LDL , HDL , TRIG , TSH in the last 66805 hours. No results for input(s): HGBA1C in the last 84174 hours. No results for input(s): PT , PTT , INR , TSH in the last 61921 hours. No results for input(s): TSH in the last 62074 hours. No results for input(s): IRON in the last 69798 hours. No results for input(s): [id number] in the last 23575 hours. No results for input(s): VITAMINA in the last 82998 hours. No results for input(s): IRON in the last 28497 hours. No results for input(s): VITK1 in the last 96965 hours. No results for input(s): [id number] in the last 72924 hours. No results for input(s): ALPHATOCOPH in the last 06415 hours. No results for input(s): GAMMATOCOPH in the last 27903 hours. No results for input(s): MAGMGDL in the last 81400 hours. No results for input(s): PHOS in the last 22401 hours. Some lab results will be in [...] and NExT program / an exercise log. Gastric Ulcer He underwent EGD with Dr. [...] to bariatric surgery. He is scheduled 12/13/2022. ?? Hypertension?? Patient currently taking lisinopril/ hydrochlorothiazide for this.?His??130/72 today. ??Advised patient to monitor blood pressure [...] 4.05. He has follow up with PCP next month. ?? Vitamin D deficiency He had low vitamin D on initial testing. ??He is taking supplementation per protocol. ??Plan to recheck vitamin D 01/06. ?? Umbilical hernia I discussed with the patient his incarcerated umbilical hernia. ??He is interested in weight loss surgery. ??Will proceed with weight loss surgery 1st and then umbilical hernia repair if he becomes symptomatic in the future. ?? VTE risk VTE risk assessment completed per [facility] assessment tool (scannedinto media). ??Patient is noted to be of low risk for post-operative VTE event with a score of 14. ??Plan for standard DVT prophylaxis following procedure. ?? Elevated hemoglobin He was noted to have elevated hemoglobin on initial lab testing 09/07/22. Repeat CBC 1 month. If hemoglobin is repeated and it remains greater than 18, Dr. Enriquez wants him referred to hematology. Repeat hemoglobin 10/26/22 was 17.2. ?? Consults and Test ordered:?? Cardiac consult ??for risk assessment and optimization before surgery: ??Dr. Oseas Rick cleared 11/03/22 Dietitian consult for diet counseling:??Cleared 10/13/22 Psychology/psychiatry consult for pre-operative clearance.??Cleared 10/13/22.?? Blood work to evaluate for any vitamin and mineral deficiency.??Completed 09/07/22 and discussed with pt today. Repeat vitamin D: 01/06 VTE Risk Assessment: Completed and scanned into media.?? EKG: Completed 09/08/22 (abnormal) Chest Xray.??Completed 09/07/22 EGD/Colonoscopy:?completed 11/12/22 Repeat EGD due to ulcer: Scheduled 12/13/22. Once he completes his EGD and ulcer is healed [facility] ?? Follow up:??Will see me/PA/BLOCK MECHANIC in 1 month. He verbalized understanding and is agreeable to this plan after shared decision making with patient. Shanel Ware APRN-PLATINUM SMITH CC: Betty Rodriguez MD documented in this encounter OR Notes * Operative - Eliana Enriquez MD - 12/13/2022 7:30 AM CDT Esophagogastroduodenoscopy Procedure Note Date of Surgery: 12/13/22 Surgeon(s) and Role: * Eliana Enriquez MD - Primary * Hermila Medina MD - Surgeon Assisting Technology Support Analyst: Katerine Paredes RN Scrub Person: Amanda Mondragon RN Technology Support Analyst Orientee: Charito Duarte RN Procedure: 1. Esophagogastroduodenoscopy 2. Antral biopsy Pre-operative Diagnosis: Pre-Op Diagnosis Codes: * Gastric ulcer, unspecified chronicity, unspecified whether gastric ulcer hemorrhage or perforation present [K25.9] Post-operative Diagnosis: Post-Op Diagnosis Codes: * Gastric ulcer, unspecified chronicity, unspecified whether gastric ulcer hemorrhage or perforation present [K25.9] Sedation: Monitored Anesthesia Care Procedure Details The gastroscope was advanced without difficulty through the esophagus and into the stomach. Air wasinsufflated. The scope was then advanced on to the second portion of the duodenum. A careful inspection was made as the gastroscope was withdrawn. The patient was noted to have normal duodenum. The scope was withdrawn noting normal gastric antrum. Previous area of ulceration has healed. Antral biopsy taken here to rule out H pylori. The scope was then retroflexed noting no evidence of hiatal hernia. The scope was then withdrawn noting normal Z-line. The stomach was then desufflated and the scope withdrawn noting normal proximal esophagus. Findings: - normal duodenum -normal gastric antrum, ulcers healed -no hiatal hernia -normal Z-line -normal esophagus -normal cords Specimens: ID Type Source Tests Collected by Time Destination A : Antrum biopsy Pathology/Cytology Antrum Biopsy GROSS + MICRO EXAM (ILL) Eliana Enriquez MD 12/13/2022 0931 EBL: minimal Complications: None, patient tolerated the procedure well. Disposition: PACU - hemodynamically stable. Condition: stable Recommendations: -continue Prilosec 40 mg b.i.d. -may discontinue Carafate -continue avoiding NSAIDs -continue avoiding smoking -await pathology -may move forward with bariatric surgery authorization documented in this encounter Plan of Treatment Upcoming Encounters Date Type Department Care Team (Latest Contact Info) Description 04/25/2024 9:44 AM CDT Hospital Encounter [facility] [address] [place] [address] Eliana Enriquez MD [address] [place] [address] Surgery General 04/25/2024 9:44 AM CDT - 04/25/2024 10:10 AM CDT Surgery [facility] [address] [place] [address] Eliana Enriquez MD [address] [place] [address] ESOPHAGOGASTRODUODENOSCOPY WITH BIOPSY 05/03/2024 9:30 AM CDT Office Visit [facility] [address] [place] [address] Eliana Enriquez MD [address] [place] [address] 07/19/2024 9:00 AM CDT Office Visit [facility] [address] [place] [address] Anusha Campa, APPLICATION INFRASTRUCTURE ENGINEER-PLATINUM SMITH [address] [place] [address] 01/18/2025 9:00 AM [facility] Clinical Support [facility] [address] [place] [address] 01/18/2025 9:30 AM [facility] Office Visit [facility] [address] [place] [facility] [place] [address] Anusha Campa, APPLICATION INFRASTRUCTURE ENGINEER-PLATINUM SMITH [address] [place] [address] Scheduled Orders Name Type Priority Associated Diagnoses Orde r Schedule EGD GI Routine ONCE for 1 Occ urrences starting 12/13/2022 until 12/13/2022 Scheduled Procedures Name Priority Associated Diagnoses Date/Ti me ESOPHAGOGASTRODUODENOSCOPY ( EGD) BIOPSY Status post bariatric surgery 04/25/2024 9:44 AM CDT documented as of this encounter Procedures Procedure Name Priority Date/Time Associated Diagnosis Comments CARDIAC RHYTHM STRIP ORDER 12/14/2022 1:59 PM CDT GROSS + MICRO EXAM (ILL) Routine 12/13/2022 9:31 AM CDT Gastric ulcer, unspecified chronicity, unspecified whether gastric ulcer hemorrhage or perforation present ME EGD FLEX TRANSORAL W BX SNGL OR MULT 12/13/2022 8:40 AM CDT Gastric ulcer, unspecified chronicity, unspecified whether gastric ulcer hemorrhage or perforation present Special Needs ARRIVAL TIME: 0600 documented in this encounter Results * CARDIAC RHYTHM STRIP ORDER (12/14/2022 1:59 PM CDT) Narrative 12/14/2022 1:59 PM CDT Ordered by an unspecified provider. Scanned Document CARDIAC SERVICES ORD ERABLES * GROSS + MICRO EXAM (ILL) (12/13/2022 9:31 AM CDT) Case Report Surgical Pathology Report ? Case: [id number] ? Authorizing Provider: ??Eliana Enriquez MD ??Collected: ? 12/13/2022 09:31 AM ? Ordering Location: ? [facility] ? Received: ?12/14/2022 11:34 AM ? Pathologist: ? Dwight Mendez MD ? Specimen: ?Antrum Biopsy, Antrum biopsy ? 12/17/2022 9:00 AM [facility] Final Diagnosis Gastric biopsies, antrum: Chronic gastritis with intestinal metaplasia, negative for Helicobacter. Comment: Helicobacter pylori IHC stain is negative. 12/17/2022 9:00 AM [facility] Microscopic Description and Comment Microscopic examination is performed and substantiates the above diagnosis. 12/17/2022 9:00 AM [facility] Gross Description The requisition and specimen(s) are identified with the patient's name (Jayesh Anderson), MRN, and . Received in formalin, specimen antrum biopsy , are 2 cordero-pink tissues, 0.1 x 0.1 x 0.1 cm and 0.4 x 0.2 x 0.1 cm. The specimen is submitted in toto in cassette A1. AW 12/17/2022 9:00 AM [facility] Pathologist Location at [facility] 12/17/2022 9:00 AM [facility] Disclaimer The performance characteristics of all immunohistochemical and indirect immunofluorescence stains (if any) cited in this report were determined by the Histopathology Laboratory of [facility]. Some of these tests were developed by [...] H&E slides and special stains prepared at [facility], [place]. [address] (IA# [id number]) unless otherwise specified. This case was interpreted by the [facility] Department of Pathology. When applicable, select reference laboratory testing is performed at the [facility], [address] [place] [address]. 12/17/2022 9:00 AM CDT [facility] Embedded Images 12/17/2022 9:00 AM CDT [facility] Pathology/Cytology GASTRIC ANTRAL BIOPSY SPECIMEN / Unknown 12/13/2022 9:31 AM CDT 12/14/2022 11:34 AM CDT Comment:Pre-op diagnosis: Gastric ulcer, unspecified chronicity, unspecified whether gastric ulcer hemorrhage or perforation present [K25.9] Eliana Enriquez MD LAB - PATHOLOGY/ CYTOLOGY ORDERABLES Performing Organization Address City/State/[facility] Co mt Phone Number [facility] [address] documented in this encounter Visit Diagnoses Diagnosis Gastric ulcer, unspecified chronicity, unspecified whether gastric ulcer hemorrhage or perforation present Status post bariatric surgery Bariatric surgery status documented in this encounter Administered Medications Inactive Administered Medications - up to 3 most recent administrations Medication Order MAR Action Action Date Dose Rate Site 0.9% NaCl injection 3 mL 3 mL, Intracatheter, PRE-PROCEDURE MULTIPLE, Starting on Tue12/13/22 at 0609, Until Tue12/13/22 at 1155, For Saline Lock flushes if one is inserted for Bronchoscopy/Endoscopy procedure., Pre-procedure (GI) famotidine (Pepcid) injection 20 mg 20 mg, Intravenous, PRE-OP ONCE, 1 dose, On Tue12/13/22 at 0615, Dilute 2 mL of injection with 0.9% NaCl or D5W solution to a volume of 5 to 10 ml. Push over a period of at least 2 minutes. Dilute with 0.9% NaCl, D5W solution, or SWI to a volume of 5 to 10 mL and administer over at least 2 minutes., Pre-op $ Given 12/13/2022 6:30 AM CDT 20 mg fentaNYL (PF) (Sublimaze) injection 25 mcg 25 mcg, Intravenous, EVERY 10 MIN PRN, Mild Pain, 4 doses, Starting on Tue12/13/22 at 1005, Until Tue12/13/22 at 1155, Maximum total of 4 doses. If patient [...] must be documented in the MAR., PACU fentaNYL (PF) (Sublimaze) injection 37.5 mcg 37.5 mcg, Intravenous, EVERY 10 MIN PRN, Moderate Pain, 4 doses, Starting on Tue12/13/22 at 1005, Until Tue12/13/22 at 1155, Maximum total of 4 doses. If patient [...] must be documented in the MAR., PACU fentaNYL (PF) (Sublimaze) injection 50 mcg 50 mcg, Intravenous, EVERY 10 MIN PRN, Severe Pain, 4 doses, Starting on Tue12/13/22 at 1005, Until Tue12/13/22 at 1155, Maximum total of 4 doses If patient reaches max total dose, please [...] must be documented in the MAR., PACU lactated ringers infusion at 75 mL/hr, Intravenous, PRE-OP CONTINUOUS, Starting on Tue12/13/22 at 0615, Until Tue12/13/22 at 1155, Pre-op $ New Bag/Syringe 12/13/2022 6:30 AM CDT 75 mL/hr naloxone (Narcan) injection 0.04 mg 0.04 mg, Intravenous, POST-OP MULTIPLE, Starting on Tue12/13/22 at 1005, Until Tue12/13/22 at 1155, If respirations are less than 8 per minute and O2 sat is less than 90%, bag/mask patient and notify anesthesia immediately. If directed to administer naloxone, dilute 0.4mg in 9mL normal saline for dilution of 0.04mg/mL. Administer 1mL over 30 seconds while observing the patient response and titrating to effect. If no response, continue IV naloxone at the same rate up to a total of 0.8 mg of diluted naloxone., PACU ondansetron (Zofran) injection 4 mg 4 mg, Intravenous, ONCE PRN, Nausea/Vomiting, 1 dose, Starting on Tue12/13/22 at 1005, Until Tue12/13/22 at 1155, First choice, PACU documented in this encounter Active and Recently Administered Medications Times are shown in CDT. Scheduled Medication Order 12/11/2022 12/12/2022 12/13/2022 0.9% NaCl injection 3 mL 3 mL, Intracatheter, PRE-PROCEDURE MULTIPLE, Starting on Tue12/13/22 at 0609, Until Tue12/13/22 at 1155, For Saline Lock flushes if one is inserted for Bronchoscopy/Endoscopy procedure., Pre-procedure (GI) famotidine (Pepcid) injection 20 mg (COMPLETED) 20 mg, Intravenous, PRE-OP ONCE, 1 dose, On Tue12/13/22 at 0615, Dilute 2 mL of injection with 0.9% NaCl or D5W solution to a volume of 5 to 10 ml. Push over a period of at least 2 minutes. Dilute with 0.9% NaCl, D5W solution, or SWI to a volume of 5 to 10 mL and administer over at least 2 minutes., Pre-op 0630 ($ Given - Prov ider: Shaista Stanton RN) naloxone (Narcan) injection 0.04 mg 0.04 mg, Intravenous, POST-OP MULTIPLE, Starting on Tue12/13/22 at 1005, Until Tue12/13/22 at 1155, If respirations are less than 8 per minute and O2 sat is less than 90%, bag/mask patient and notify anesthesia immediately. If directed to administer naloxone, dilute 0.4mg in 9mL normal saline for dilution of 0.04mg/mL. Administer 1mL over 30 seconds while observing the patient response and titrating to effect. If no response, continue IV naloxone at the same rate up to a total of 0.8 mg of diluted naloxone., PACU Continuous Medication Order 12/11/2022 12/12/2022 12/13/2022 lactated ringers infusion at 75 mL/hr, Intravenous, PRE-OP CONTINUOUS, Starting on Tue12/13/22 at 0615, Until Tue12/13/22 at 1155, Pre-op 0630 ($ New Bag/Syri nge - Provider: Shaista Stanton RN)0934 (Anesthesia Volume Adjustment - Provider: Chula Santos APRN-PROPERTY UTILIZATION MANAGER) PRN Medication Order 12/11/2022 12/12/2022 12/13/2022 fentaNYL (PF) (Sublimaze) injection 25 mcg 25 mcg, Intravenous, EVERY 10 MIN PRN, Mild Pain, 4 doses, Starting on Tue12/13/22 at 1005, Until Tue12/13/22 at 1155, Maximum total of 4 doses. If patient [...] must be documented in the MAR., PACU fentaNYL (PF) (Sublimaze) injection 37.5 mcg 37.5 mcg, Intravenous, EVERY 10 MIN PRN, Moderate Pain, 4 doses, Starting on Tue12/13/22 at 1005, Until Tue12/13/22 at 1155, Maximum total of 4 doses. If patient [...] must be documented in the MAR., PACU fentaNYL (PF) (Sublimaze) injection 50 mcg 50 mcg, Intravenous, EVERY 10 MIN PRN, Severe Pain, 4 doses, Starting on Tue12/13/22 at 1005, Until Tue12/13/22 at 1155, Maximum total of 4 doses If patient reaches max total dose, please [...] must be documented in the MAR., PACU ondansetron (Zofran) injection 4 mg 4 mg, Intravenous, ONCE PRN, Nausea/Vomiting, 1 dose, Starting on Tue12/13/22 at 1005, Until Tue12/13/22 at 1155, First choice, PACU documented in this encounter Care Teams Park Guard Relationship Specialty Start Date End Date Betty Rodriguez MD [address] [place] [address] PCP - General Internal Medicine 09/02/22 documented as of this encounter
--- OUTSIDE RECORDS SUMMARY | 2024-02-06 01:12 | XMS_ITS | Encounter Summary ---
Author Organization [facility] Address [address] [place] [address] Care Team Providers Care International Specialist Name Role Phone Betty Rodriguez MD Primary Care Provider [phone] Encounter Details Date Type Department Care Team (Latest Contact Info) Description 01/10/2023 11:00 AM BONDING AGENT - 01/10/2023 11:59 PM [facility] Hospital Encounter [facility] PREAD[facility] [address] [place], [place] [id number] Eliana Enriquez MD [address] [place] [phone] Discharge Disposition: Home or Self Care Anesthesia Record Procedure Summary Procedure Name Responsible Anesthesiologist Anesthesia Start Time Anesthesia Stop Time LAPAROSCOPIC SLEEVE GASTRECTOMY (Abdomen) Samantha Lucero MD 01/17/23 0918 01/17/23 1124 Events Date Time Event Comment 01/17/2023 0736 0918 An Start 0918 An Start Data 0924 PT Reassessment 0927 An Induction 0930 An Intubation 0931 Quick Note Gas monitor dawson n. Attempted trouble shooting to no avail. Waiting for replacement box. VSS. Pt ventilating well. 0957 Timeout Anesthesia part icipated in timeout at the time documented in the record by nursing. 0957 Proc Start 1107 An Emergence 1109 Extubation 1113 Electnc Sig This record is electronically signed by the providers listed under staff. 1113 an stop data 1124 An Stop Meds * Agents No agents on file. * Blood No blood administrations on file. Lines, Drains, and Airways Type Details Placement Removal Peripheral IV Date: 01/17/23; Time : 0745; Orientation: Posterior, Right; Placed By: Patrick escobar; Tolerance: Well 01/17/23 0745 by Marlene Cordero RN 01/18/23 1347 by Ashleigh Watson RN Peripheral IV Date: 01/17/23; Time : 0758; Orientation: Left, Posterior; Placed By: Patrick ESCOBAR; Tolerance: Well 01/17/23 0758 by Marlene Cordero RN 01/18/23 0915 by Melania Trejo Nurse Product Blending Supervisor ETT Date: 01/17/23; Time : 0930; Placed By: SOFIA Macias; Vent: mask not attempted; Induction: Modified Rapid Sequence; Blade Type: Sisi; Blade Size: 4; Laryngoscopy View: Grade 3 (epiglottis); Intubation Adjuncts: Stylet; Tube: Endotracheal Tube; Placement: Oral; Tube Type: Cuffed-inflated; Tube Size(FR): 7.5 FR; Depth of Insertion: 23 CM; Measured From: lips; Attempts: 1; Cuff Infated: Air; Verified By: Bilateral breath sounds, Chest Auscultation, CO2 Monitor 01/17/23 0930 by Danny Wilkins APRN-CRNA 01/17/23 1109 by Danny Wilkins APRN-CRNA Procedural Site (Incision) 01/17/23; 0957; Abdomen; 4 trocar sites; 01/18/23; 2019 01/17/23 0957 by Gertrudis Lemos RN 01/18/23 2019 by Generic, Auto Release documented in this encounter Social [...] Sign Reading Time Taken Comments Blood Pressure 135/71 01/10/2023 11:05 AM BONDING AGENT Pulse 97 01/10/2023 11:05 AM BONDING AGENT Temperature 36.6 ??C (97.9 ??F) 01/10/2023 11:[address] Respiratory Rate 20 01/10/2023 11:05 AM BONDING AGENT Oxygen Saturation 97% 01/10/2023 11:05 AM BONDING AGENT Inhaled Oxygen Concentration - - Weight 147 kg (324 lb) 01/10/2023 11:05 AM BONDING AGENT Height 182.9 cm (6') 01/10/2023 11:05 AM BONDING AGENT Body Mass Index 43.94 01/10/2023 11:05 AM BONDING AGENT documented in this encounter Functional Status Functional [...] for basal pain 40 tablet 01/10/2023 05/11/2023 atorvastatin (Lipitor) 40 MG tablet Take 1 (one) tablet by mouth at bedtime 01/12/2023 Coenzyme Q10 (CO Q 10 PO) 01/12/2023 docusate sodium (Colace) 100 MG capsuleIndications:Ba riatric surgery status Take 1 (one) capsule by mouth 2 times daily 30 capsule 01/10/2023 05/11/2023 lisinopril (Prinivil; Zestril) 10 MG tablet Take 1 (one) tablet by mouth once daily 90 tablet 01/17/2023 01/13/2023 Multiple Vitamins-Minerals (Centrum Silver) TABS Take 1 [...] 24hrs. 8 tablet 01/10/2023 05/11/2023 Probiotic Product ([employer]) capsuleIndications:Ba riatric surgery status Take 1 (one) capsule by mouth once daily 30 capsule 3 01/10/2023 05/11/2023 scopolamine (Transderm-Scop) 1 MG patchIndications:Surg christoph Apply 1 patch to skin pre-op for 1 dose, place 1 patch behind ear night before surgery Reasons: Operation 1 patch 01/10/2023 01/18/2023 ursodiol (Actigall) 300 MG capsuleIndications:Po st op laproscopic sleeve gastrectomy Take 1 (one) capsule by mouth 2 times daily for 90 days Do Not start until 1 week post op. Reasons: Post op laproscopic sleeve gastrectomy 60 capsule 2 01/10/2023 05/11/2023 vitamin D, ergocalciferol, (Drisdol) 1.25 MG (85908 UT) capsuleIndications:Vi tamin D Deficiency Take 1 (one) capsule by mouth every 7 days Reasons: Vitamin D Deficiency 4 capsule 3 09/15/2022 01/18/2023 documented as of this encounter OR Notes * OR PreOp - Rosa Smyth RN - 01/10/2023 11:[address] Baker with anesthsia here to see patient @ 1118. Labs, medications, and EKG reviewed. Cardiac clearance reviewed. Orders for T&S completed. No further testing or clearances needed. Lab here to see patient @ 4555. T/S completed. Nicotine test ordered in computer but patient stateshe hasn't had to do one in the past and doesn't smoke. Pharmacy here to speak with patient and spouse @ 1200. Patient confirms name and , planned surgery for laparoscopic sleeve gastrectomy with possible EGD for 01/17/23. Patient given CHG soap with written and verbal instructions. NPO status reviewed withpatient aware he can take his Omeprazole with a sip of water the DOS. Instructed to bring CPAP withhim the DOS. Aware of overnight stay, states his will be bringing him and picking him up at discharge. Given [facility] [place] if any questions would arise and aware we will call on Tuesday with his arrival time. Denies any further questions. ING AGENT documented in this encounter Plan of Treatment Upcoming Encounters Date Type Department Care Team (Latest Contact Info) Description 04/25/2024 9:44 AM CDT Hospital Encounter [facility] - [address]ena Op [address] [place] [address] Eliana Enriquez MD [address] [place] [phone] Surgery General 04/25/2024 9:44 AM CDT - 04/25/2024 10:10 AM CDT Surgery [facility] - [address]ena Op [address] [place] [address] Elaina Enriquez MD [address] [place] [phone] ESOPHAGOGASTRODUODENOSCOPY WITH BIOPSY 05/03/2024 9:30 AM CDT Office Visit [facility] Management Services [address] [place] [phone] Eliana Enriquez MD [address] [place] [phone] 07/19/2024 9:00 AM CDT Office Visit [facility] Health Weight Management Services [address] [place] [phone] Anusha Campa, FARM MACHINE TENDER-PEST CONTROL SUPERVISOR [address] [place] [address] 01/18/2025 9:00 AM BONDING AGENT Clinical Support [facility] Health Weight Management Services [address] [place] [phone] 01/18/2025 9:30 AM BONDING AGENT Office Visit [facility] Services [address] [place] [phone] Anusha Campa, FARM MACHINE TENDER-PEST CONTROL SUPERVISOR [address] [place], [place] [address] Scheduled Procedures Name Priority Associated Diagnoses Date/Ti me ESOPHAGOGASTRODUODENOSCOPY ( EGD) BIOPSY Status post bariatric surgery 04/25/2024 9:44 AM CDT documented as of this encounter Procedures Procedure Name Priority Date/Time Associated Diagnosis Comments TYPE + SCREEN PANEL STAT 01/10/2023 1 1:45 AM BONDING AGENT Preop examination documented in this encounter Results * TYPE + SCREEN PANEL (01/10/2023 11:45 AM BONDING AGENT) ABO Rh A POS 01/10/2023 12:50 PM BONDING AGENT [facility] Antibody Screen NEG 12:50 PM BONDING AGENT [facility] Blood Bank BLOOD SPECIMEN / Unknown Lab Venipuncture / Unknown 01/10/2023 11:45 AM BONDING AGENT 01/10/2023 11:48 AM BONDING AGENT Gabbie Contreras MD LAB - BLOOD BA NK ORDERABLES [facility] [address] documented in this encounter Visit Diagnoses Diagnosis Preop examination- Primary Preoperative examination, unspecified Status post bariatric surgery Bariatric surgery status documented in this encounter Care Teams International Specialist Relationship Specialty Start Date End Date Betty Rodriguez MD [address] [place] [address] PCP - General Internal Medicine 09/02/22 documented as of this encounter
--- OUTSIDE RECORDS SUMMARY | 2024-02-06 01:12 | XMS_ITS | Encounter Summary ---
Author Organization [facility] Address [address] [place] [address] Care Team Providers Care Associate Curator Name Role Phone Betty Rodriguez MD Primary Care Provider [phone] Reason for Visit * Auth/Cert (Routine) Specialty Diagnoses / Procedures Referred By Contdipak t Referred To Contact Diagnoses Gastric ulcer, unspecified chronicity, unspecified whether gastric ulcer hemorrhage or perforation present Gastric ulcer, unspecified chronicity, unspecified whether gastric ulcer hemorrhage or perforation present [K25.9] Procedures PA EGD FLEX TRANSORAL W BX SNGL OR MULT ESOPHAGOGASTRODUODENOSCOPY (EGD) BIOPSY Referral ID Status Reason Start Date Expiration Date Visits Re quested Visits Authorized [id number] 1 1 Encounter Details Date Type Department Care Team (Latest Contact Info) Description 12/13/2022 7:30 AM CDT - 12/13/2022 8:17 AM CDT [facility] [address] [place] [address] Eliana Enriquez MD [address] [place] [phone] ESOPHAGOGASTRODUODENOSCOPY WITH BIOPSY Surgery Details Date/Time Status Location OR Service Patient Class Case Class Case Type Trauma Case? 12/13/2022 7:30 AM Posted [facility] MAIN OR OR 2 Gastroenterology Surgery Day Care Elective > 5 days Panel 1 Procedure LRB Anes Op Region Wound Class Comments ESOPHAGOGASTRODUODENOSCOPY WITH BIOPSY N/A MAC E sophagus Clean Contaminated Surgeon Surgeon Role Service Panel Eliana Enriquez MD Primary Gastroenterolog y 1 Hermila Medina MD Surgeon Assisting General 1 Special Needs ARRIVAL TIME: 0600 documented in this encounter Social History Tobacco [...] Sign Reading Time Taken Comments Blood Pressure 138/70 12/13/2022 6:49 AM CDT Pulse 88 12/13/2022 6:49 AM CDT Temperature 36.7 ??C (98.1 ??F) 12/13/2022 6:49 AM CD T Respiratory Rate 17 12/13/2022 6:49 AM CDT Oxygen Saturation 95% 12/13/2022 6:49 AM CDT Inhaled Oxygen Concentration - - [...] 01/10/2023 vitamin D, ergocalciferol, (Drisdol) 1.25 MG (68141 UT) capsuleIndications:Vi tamin D Deficiency Take 1 [...] Ware APRN-CNP - 12/01/2022 11:10 AM CDT [facility] [place] [address] . . Date of encounter: No admission date for patient encounter. Provider: PREET Silver Patient: Jayesh Anderson CSN: [id number] Specialty: Bariatric Surgery Date of : 1955 [...] ??? vitamin D, ergocalciferol, (Drisdol) 1.25 MG (20508 UT) capsule Take 1 (one) capsule by [...] No palpable visceromegaly. No palpableventral hernias. Skin: [place] and moist. No ulcers, rashes, or lesions. Extremities: Well perfused. No gross joint deformity noted Neurological: Cranial nerves 2-12 were grossly intact. Psychiatric: The patient's mood and affect appeared to be appropriate Labs No results for input(s): WBC , RBC , HGB , HCT , PLTCOUNT in the last 93690 hours. No results for input(s): SODIUM , POTASSIUM , CO2 , BUN , CREATININE in the last 58478 hours. Invalid input(s): CLORIDE No results for input(s): GLUCOSE in the last 87698 hours. No results for input(s): AST , ALT in the last 48150 hours. No results for input(s): LDL , HDL , TRIG , TSH in the last 03094 hours. No results for input(s): HGBA1C in the last 44220 hours. No results for input(s): PT , PTT , INR , TSH in the last 54955 hours. No results for input(s): TSH in the last 05126 hours. No results for input(s): IRON in the last 15235 hours. No results for input(s): JBGCISTY11 in the last 74384 hours. No results for input(s): VITAMINA in the last 44426 hours. No results for input(s): IRON in the last 30077 hours. No results for input(s): VITK1 in the last 32954 hours. No results for input(s): EZFMCSOX48HM in the last 25841 hours. No results for input(s): ALPHATOCOPH in the last 45403 hours. No results for input(s): GAMMATOCOPH in the last 94690 hours. No results for input(s): MAGMGDL in the last 42027 hours. No results for input(s): PHOS in the last 71662 hours. Some lab results will be in [...] VTE risk VTE risk assessment completed per [facility] assessment tool (scannedRushFiles). ??Patient is noted to be of low [...] VTE Risk Assessment: Completed and scanned into [employer] [place].?? EKG: Completed 09/08/22 (abnormal) Chest Xray.??Completed 09/07/22 EGD/Colonoscopy:?completed 11/12/22 Repeat EGD due to ulcer: Scheduled 12/13/22. Once he completes his EGD and ulcer is healed he should be [facility] ?? Follow up:??Will see me/PA/EMBEDDER in 1 month. He verbalized understanding and is agreeable to this plan after shared decision making with patient. Shanel Ware APRN-INVESTOR RELATIONS SPECIALIST CC: Betty Rodriguez MD documented in this encounter OR Notes * Operative - Eliana Enriquez MD - 12/13/2022 7:30 AM CDT Esophagogastroduodenoscopy Procedure Note Date of Surgery: 12/13/22 Surgeon(s) and Role: * Eliana Enriquez MD - Primary * Hermila Medina MD - Surgeon Assisting Chip Tuner: Katerine Paredes RN Scrub Person: Amanda Mondragon RN Chip Tuner Orientee: Charito Duarte RN Procedure: 1. Esophagogastroduodenoscopy [...] CDT Hospital [facility] [address] [address] [place] [address] Eliana Enriquez MD [address] [place] [address] Surgery General 04/25/2024 9:44 AM CDT - 04/25/2024 10:10 AM CDT [facility] [address] [address] [place] [address] Eliana Enriquez MD [address] [place] [phone] ESOPHAGOGASTRODUODENOSCOPY WITH BIOPSY 05/03/2024 9:30 AM CDT Office Visit [facility] Weight Management Services [address] [place] [phone] Eliana Enriquez MD [address] [place] [address] 07/19/2024 9:00 AM CDT Office Visit [facility] Services [address] [place] [phone] Anusha Campa, CRM CAMPAIGN MANAGER-INVESTOR RELATIONS SPECIALIST [address] [place] [address] 01/18/2025 9:00 AM SHEET METAL DUCT INSTALLER Clinical Support [facility] Weight Management Services [address] [place] [phone] 01/18/2025 9:30 AM SHEET METAL DUCT INSTALLER Office Visit [facility] Weight Management Services [address] [place] [phone] Anusha Campa, CRM CAMPAIGN MANAGER-INVESTOR RELATIONS SPECIALIST [address] [place], [place] [phone] Scheduled Orders Name Type Priority Associated Diagnoses [...] whether gastric ulcer hemorrhage or perforation present PA EGD FLEX TRANSORAL W BX SNGL OR [...] Case Report Surgical Pathology Report ? Case: [id number] ? Authorizing Provider: ??Eliana Enriquez MD ??Collected: ? 12/13/2022 09:31 AM ? Ordering Location: ? [facility]IOP ? Received: ?12/14/2022 11:34 AM ? Pathologist: ? Dwight Mendez MD ? Specimen: ?Antrum Biopsy, Antrum biopsy ? 12/17/2022 9:00 AM [facility] Final Diagnosis Gastric biopsies, antrum: Chronic gastritis with intestinal metaplasia, negative for Helicobacter. Comment: Helicobacter pylori IHC stain is negative. 12/17/2022 9:00 AM [facility] Microscopic Description and Comment Microscopic examination is performed and substantiates the above diagnosis. 12/17/2022 9:00 AM [facility] Gross Description The requisition and specimen(s) are identified with the patient's name (Jayesh Anderson), MRN, and . Received in formalin, specimen antrum biopsy , are 2 cordero-pink tissues, 0.1 x 0.1 x 0.1 cm and 0.4 x 0.2 x 0.1 cm. The specimen is submitted in toto in cassette A1. AW 12/17/2022 9:00 AM [facility] Pathologist Location at [facility] 12/17/2022 9:00 AM [facility] Disclaimer The performance characteristics of all immunohistochemical and indirect immunofluorescence stains (if any) cited in this report were determined by the Histopathology Laboratory of [facility]. Some of these tests were developed [...] H&E slides and special stains prepared at [facility], [place]. [address] (CLIA# [id number]) unless otherwise specified. This case was interpreted by the [facility] Department of Pathology. When applicable, select reference laboratory testing is performed at the [facility] Pathology Independent [facility], [address] [place] [id number]. 12/17/2022 9:00 AM CDT [facility] Embedded Images 12/17/2022 9:00 AM CDT [facility] Pathology/Cytology GASTRIC ANTRAL BIOPSY SPECIMEN / Unknown 12/13/2022 9:31 AM CDT 12/14/2022 11:34 AM CDT Comment:Pre-op diagnosis: Gastric ulcer, unspecified chronicity, unspecified whether gastric ulcer hemorrhage or perforation present [K25.9] Eliana Enriquez MD LAB - PATHOLOGY/ CYTOLOGY ORDERABLES Performing Organization Address [facility]/State/[facility] Phone Number [facility] [address] documented in this encounter Visit Diagnoses [...] (Anesthesia Volume Adjustment - Provider: Chula Santos APRN-ADMISSION LIAISON) PRN Medication Order 12/11/2022 12/12/2022 12/13/2022 [id number] [...] PACU documented in this encounter Care Teams Associate Curator Relationship Specialty Start Date End Date Betty Rodriguez MD [address] [place] [address] PCP - General Internal Medicine 09/02/22 documented as of this encounter
--- OUTSIDE RECORDS SUMMARY | 2024-02-06 01:12 | XMS_ITS | Encounter Summary ---
Author Organization [facility] Address [address] [place] [address] Care Team Providers Care Manager Ob Name Role Phone Betty Rodriguez MD Primary Care Provider [phone] Reason for Visit * Auth/Cert (Routine) Specialty Diagnoses / Procedures Referred By Contac t Referred To Contact Diagnoses Morbid obesity (HCC) Morbid obesity (CMS/HCC) [E66.01] Procedures [place] LAP SLEEVE GASTRECTOMY LAPAROSCOPIC GASTRECTOMY (LONGITUDINAL/SLEEVE) Referral ID Status Reason Start Date Expiration Date Visits Re quested Visits Authorized [id number] 1 1 Encounter Details Date Type Department Care Team (Latest Contact Info) Description 01/17/2023 7:13 AM MANAGER CARD - 01/18/2023 2:18 PM [facility] Hospital Encounter [facility] [place], [place] [address] Eliana Enriquez MD [address] [place] [address] Surgery General Discharge Disposition: Home or Self [...] Sign Reading Time Taken Comments Blood Pressure 119/66 01/18/2023 7:13 AM MANAGER CARD Pulse 57 01/18/2023 7:13 AM MANAGER CARD Temperature 36.8 ??C (98.2 ??F) 01/18/2023 7:13 AM CS T Respiratory Rate 16 01/18/2023 7:40 AM MANAGER CARD Oxygen Saturation 96% 01/18/2023 7:40 AM MANAGER CARD Inhaled Oxygen Concentration 21% 05/2022 11:15 PM MANAGER CARD Weight 141.7 kg (312 lb 6.3 oz) 01/17/2023 7:37 AM MANAGER CARD Height 182.9 cm (6') 01/17/2023 7:37 AM MANAGER CARD Body Mass Index 42.37 01/17/2023 7:37 AM MANAGER CARD documented in this encounter Functional Status Functional [...] this encounter Discharge Summaries * Anusha Campa, MARKETING AND DEVELOPMENT COORDINATOR-REMOTE SENSING RESEARCH SCIENTIST - 01/18/2023 2:18 PM CST Discharge Summary [...] pain. Max of 6 tabs in 24hrs. DigitalOcean capsule Take 1 (one) capsule by mouth once daily STOP taking these medications scopolamine 1 MG patch Commonly known as: Transderm-Scop vitamin D (ergocalciferol) 1.25 MG (58505 UT) capsule Commonly known as: Drisdol CONDITION ON DISCHARGE: Stable. DISPOSITION: Home with self care Anusha Campa, MARKETING AND DEVELOPMENT COORDINATOR-REMOTE SENSING RESEARCH SCIENTIST CC: Betty Rodriguez MD GER CARD documented in this encounter Medications at Time [...] 24hrs. 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 choice - Pt. choice [facility] Prescreen sent (if applicable/date): na Preferred provider/high quality network list given (yes or no) no List DME pt. requires but does not have.: None Care Management Contact information given to: Patient Comments/Follow-up needs: Return home. Has PCP and insurance. Denies HH or DME needs. Spouse to transport. GER CARD * Rere Villarreal RN - 01/18/2023 12:58 [...] to engage in desired activity. Outcome: Progressing GER CARD * Yelena Pereira RCP - 01/17/2023 7:06 PM CST Problem: Ineffective breathing pattern related to obstructive sleep apnea Goal: Adheres to CPAP (Continuous Positive Airway Pressure) device regimen as prescribed. Note: Respiratory effort will be within normal limits, as oxygenation will be assessed, with oxygenadministered and titrated as ordered by the physician. Pt wears home cpap nightly GER CARD documented in this encounter H&P Notes * Eliana Enriquez MD - 01/17/2023 7:53 AM CST Admit Date: 01/17/23 This patient? s prior H&P was reviewed, the patient was examined and no change has occurred in the patient's condition since the prior H&P was completed. Cardiovascular regular rate. Lungs clear bilateral. Eliana Enriquez MD GER CARD Source Note - Shanel Ware APRN-CNP - 12/24/2022 10:30 AM MANAGER CARD [facility] [place] [address] . . Date of encounter: No admission date for patient encounter. Provider: PREET Silver Patient: Jayesh Anderson CSN: [id number] Specialty: Bariatric Surgery Date of : 1955 [...] 12/24/22 encounter (Office Visit) with Shanel Ware APRN-AMADOU [...] No palpable visceromegaly. No palpableventral hernias. Skin: [place] and moist. No ulcers, rashes, or lesions. Extremities: Well perfused. No gross joint deformity noted Neurological: Cranial nerves 2-12 were grossly intact. Psychiatric: The patient's mood and affect appeared to be appropriate Labs No results for input(s): WBC , RBC , HGB , HCT , PLTCOUNT in the last 90075 hours. No results for input(s): SODIUM , POTASSIUM , CO2 , BUN , CREATININE in the last 05567 hours. Invalid input(s): CLORIDE No results for input(s): GLUCOSE in the last 44206 hours. No results for input(s): AST , ALT in the last 03375 hours. No results for input(s): LDL , HDL , TRIG , TSH in the last 44705 hours. No results for input(s): HGBA1C in the last 11977 hours. No results for input(s): PT , PTT , INR , TSH in the last 51621 hours. No results for input(s): TSH in the last 13559 hours. No results for input(s): IRON in the last 21057 hours. No results for input(s): [id number] in the last 75940 hours. No results for input(s): VITAMINA in the last 10129 hours. No results for input(s): IRON in the last 76874 hours. No results for input(s): VITK1 in the last 70270 hours. No results for input(s): [id number] in the last 99911 hours. No results for input(s): ALPHATOCOPH in the last 91531 hours. No results for input(s): GAMMATOCOPH in the last 38036 hours. No results for input(s): MAGMGDL in the last 48185 hours. No results for input(s): PHOS in the last 93242 hours. Some lab results will be in [...] inflammation and intestinal metaplasia. No dysplasia. No acuteinflammation. Negative for H pylori. He was recommended [...] VTE risk VTE risk assessment completed per [place] [facility] Collabor[facility] assessment tool ([place]dai). ??Patient is noted to be of low [...] ulcer: Completed 12/13/22. ?? Follow up:??Will see me/PA/AUTHOR in 1 month. He has completed his requirements. He is ready for final review and submission insurance. He verbalized understanding and is agreeable to this plan after shared decision making with patient. Shanel Ware APRN-REMOTE SENSING RESEARCH SCIENTIST CC: Betty Rodriguez MD GER CARD * Eliana Enriquez MD - 01/17/2023 7:53 AM CST Admit Date: 01/17/23 This patient? s prior H&P was reviewed, the patient was examined and no change has occurred in the patient's condition since the prior H&P was completed. Eliana Enriquez MD GER CARD Source Note - Eliana Enriquez MD - 01/13/2023 11:47 AM MANAGER CARD [facility] [place] [address] . . Date of encounter: No admission date for patient encounter. Provider: Eliana Enriquez MD Patient: Jayesh Anderson CSN: [id number] Specialty: Bariatric Surgery Date of : 1955 [...] mouth daily with food ??? Probiotic Product (DigitalOcean) capsule Take 1 (one) capsule by mouth once daily ??? vitamin D, ergocalciferol, (Drisdol) 1.25 MG (52926 UT) capsule Take 1 (one) capsule by [...] No palpable visceromegaly. Incarcarated umbilical hernia. Skin: [place] and moist. No ulcers, rashes, or lesions. Extremities: Well perfused. No gross joint deformity noted Neurological: Cranial nerves 2-12 were grossly intact. Muscle strength was 5/5 and equal in all four extremities. Psychiatric: The patient's mood and affect appeared to be appropriate Labs No results for input(s): WBC , RBC , HGB , HCT , PLTCOUNT in the last 38005 hours. No results for input(s): SODIUM , POTASSIUM , CO2 , BUN , CREATININE in the last 00312 hours. Invalid input(s): CLORIDE No results for input(s): GLUCOSE in the last 76397 hours. No results for input(s): AST , ALT in the last 20647 hours. No results for input(s): LDL , HDL , TRIG in the last 08760 hours. No results for input(s): HGBA1C in the last 57806 hours. No results for input(s): PT , PTT , INR , TSH in the last 07053 hours. No results for input(s): TSH in the last 52196 hours. No results for input(s): IRON in the last 63703 hours. No results for input(s): [id number] in the last 80766 hours. No results for input(s): VITAMINA in the last 52991 hours. No results for input(s): IRON in the last 03509 hours. No results for input(s): VITK1 in the last 41595 hours. No results for input(s): [id number] in the last 28726 hours. No results for input(s): ALPHATOCOPH in the last 51284 hours. No results for input(s): GAMMATOCOPH in the last 68902 hours. No results for input(s): MAGMGDL in the last 25777 hours. Some lab results will be in [...] per [place] [facility] Collaborative assessment tool (Koudai). ??Patient is noted to be of low [...] and Place. Surgery: Sleeve Gastrectomy. Place: At [facility]. Patient should qualify for staying more than 2 midnights in hospital. Patient education, risk explained and consent : he meets the criteria as set by the [place] [employer] that recommends bariatric surgery on [...] and having very close follow-up with a mash processing operator and me. In addition he must continue [...] has attended pre operative education class by program lead and the dietitian, but he will have additional education provided by the program lead and mash processing operator at [facility]. Because of the significant changes in his eating habits he will have to see a mash processing operator following surgery. I have informed him that [...] Eliana Enriquez MD CC: Betty Rodriguez MD GER CARD documented in this encounter Consult Notes * [...] questions/concerns. Will continue to monitor per protocol. GER CARD * Nicolette Abdalla, MOHINI-REMOTE SENSING RESEARCH SCIENTIST - 01/17/2023 2:04 PM CSTAssociated Order(s): IP [...] 01/13/2023) 8 tablet 0 ??? Probiotic Product (DigitalOcean) capsule Take 1 (one) capsule by mouth [...] ??? vitamin D, ergocalciferol, (Drisdol) 1.25 MG (45736 UT) capsule Take 1 (one) capsule by [...] results for input(s): MAGMGDL in the last 76023 hours. No results for input(s): PT , INR , DDIMER in the last 59105 hours. No results for input(s): CK in the last 17542 hours. No results for input(s): TROPONIN , BNP , DDIMER in the last 16079 hours. No results for input(s): PHART , VRO6OGT , PO2ART , ZTY2AUC , R3UHILUP , FIO2 in the last 44600 hours. No results for input(s): LACTICACID in the last 07817 hours. No results for input(s): HGBA1C in the last 41218 hours. No results for input(s): CHOL , TRIG , HDL , LDLCALC , VLDL , CHOLHDLRATIO in the last 77825brwqp. No results for input(s): TSH , G0THUUO , T4FREE , K8CMIEZ in the last 71112 hours. No results for input(s): IRON , FERRITIN in the last 43403 hours. Invalid input(s): IRONTIBC No results for input(s): CRP in the last 61602 hours. No results for input(s): COLORUA , CLARITYUA , SPECGRAVUA , PHUA , PROTEINUA , BLOODUA , LEUKOCYTEUA , NITRITEUA , GLUCOSEUA , KETONEUA , BILIRUBINUA , UROBILINUA , RBCUA , WBCUA , EPITHUA , BACTUA , YEASTUA , CASTUA , MUCUSUA in the last 56208 hours. Invalid input(s): CRYSUA Electrocardiogram: No results [...] with voice recognition software. Occasional wrong-word or '[id number]' substitutions may have occurred due to the inherent limitations of voice recognition software. Nicolette Abdalla APRN-[facility] 01/17/2023 2:04 PM GER CARD documented in this encounter OR Notes * Operative - Eliana Enriquez MD - 01/17/2023 9:57 AM CST Pt Name: Jayesh Anderson DATE OF OPERATION: 01/17/2023 SURGEON: Surgeon(s) and Role: * Eliana Enriquez MD - Primary PROOF LOAD MECHANIC: Silver Steward: Gertrudis Lemos RN Registered Nurse Telehealth Coordinator: Lian Kaufman RN Scrub Person: Amanda Mondragon [...] was then allowed to awake from anesthesia andtransferred to the postanesthesia care unit in good condition. ESTIMATED BLOOD LOSS: 20 cc FLUIDS: 1500 cc SPECIMENS: Stomach. COMPLICATIONS: None. Eliana Enriquez MD GER CARD documented in this encounter Plan of Treatment Upcoming Encounters Date Type Department Care Team (Latest Contact Info) Description 04/25/2024 9:44 AM CDT Hospital Encounter [facility] [address] [place] [address] Eliana Enriquez MD [address] [place] [phone] Surgery General 04/25/2024 9:44 AM CDT - 04/25/2024 10:10 AM CDT Surgery [facility] [address] [address] [place] [address] Eliana Enriquez MD [address] [place] [phone] ESOPHAGOGASTRODUODENOSCOPY WITH BIOPSY 05/03/2024 9:30 AM CDT Office Visit [facility] [address] [place] [phone] Eliana Enriquez MD [address] [place] [address] 07/19/2024 9:00 AM CDT Office Visit [facility] [address] [place] [facility] [place] [address] Anusha Campa, MARKETING AND DEVELOPMENT COORDINATOR-REMOTE SENSING RESEARCH SCIENTIST [address] [place] [address] 01/18/2025 9:00 AM MANAGER CARD Clinical Support [facility] [address] [place] [address] 01/18/2025 9:30 AM MANAGER CARD Office Visit [facility] [address] [place] [facility] [place] [address] Anusha Campa, MARKETING AND DEVELOPMENT COORDINATOR-REMOTE SENSING RESEARCH SCIENTIST [address] [place] [address] Scheduled Procedures Name Priority Associated Diagnoses Date/Ti me ESOPHAGOGASTRODUODENOSCOPY ( EGD) BIOPSY Status post bariatric surgery 04/25/2024 9:44 AM CDT documented as of this encounter Procedures Procedure Name Priority Date/Time Associated Diagnosis Comments CARDIAC RHYTHM STRIP ORDER 01/19/2023 3:11 PM MANAGER CARD APHERESIS/TRANSFUSIO N ORDER 01/19/2023 2:32 PM MANAGER CARD GLUCOSE - POINT OF CARE Routine 01/18/2023 11:19 AM MANAGER CARD GLUCOSE - POINT OF CARE Routine 01/18/2023 6:18 AM MANAGER CARD TSH REFLEX FREE T4 Routine 01/18/2023 5: 48 AM MANAGER CARD HEMOGLOBIN A1C Routine 01/18/2023 5:48 AM MANAGER CARD VITAMIN D 25-HYDROXY AM Draw 01/18/2023 5:48 AM MANAGER CARD Vitamin D deficiency CBC W AUTO DIFFERENTIAL Routine 01/18/2023 5:48 AM MANAGER CARD COMPREHENSIVE METABOLIC PANEL Routine 01/18/2023 5:48 AM MANAGER CARD PHOSPHORUS BLOOD Routine 01/18/2023 5:48 AM MANAGER CARD MAGNESIUM BLOOD Routine 01/18/2023 5:48 AM MANAGER CARD LIPID PROFILE AM Draw 01/18/2023 5:48 AM MANAGER CARD GLUCOSE - POINT OF CARE Routine 01/17/2023 9:58 PM MANAGER CARD MAGNESIUM BLOOD Timed 01/17/2023 6:32 PM MANAGER CARD GLUCOSE - POINT OF CARE Routine 01/17/2023 4:25 PM MANAGER CARD CBC W AUTO DIFFERENTIAL Routine 01/17/2023 11:30 AM MANAGER CARD COMPREHENSIVE METABOLIC PANEL Routine 01/17/2023 11:30 AM MANAGER CARD PHOSPHORUS BLOOD Routine 01/17/2023 11:3 0 AM MANAGER CARD MAGNESIUM BLOOD Routine 01/17/2023 11:30 AM MANAGER CARD GROSS + MICRO EXAM (ILL) Routine 01/17/2023 10:44 AM MANAGER CARD Morbid obesity (HCC) [place] LAP SLEEVE GASTRECTOMY 01/17/2023 9:03 AM MANAGER CARD Morbid obesity (HCC) Special Needs ARRIVAL TIME:0730 documented in this encounter Results * CARDIAC RHYTHM STRIP ORDER (01/19/2023 3:11 PM MANAGER CARD) Narrative 01/19/2023 3:11 PM MANAGER CARD Ordered by an unspecified provider. Scanned Document CARDIAC SERVICES ORD ERABLES * APHERESIS/TRANSFUSION ORDER (01/19/2023 2:32 PM MANAGER CARD) Narrative 01/19/2023 2:32 PM MANAGER CARD Ordered by an unspecified provider. Scanned Document NURSING - VITAL SIGN S AND ASSESSMENT * GLUCOSE - POINT OF CARE (01/18/2023 11:19 AM MANAGER CARD) Glucose WB/POC 111 70 - 125 mg/dL 01/18/2023 11:29 AM MANAGER CARD [facility] Specimen Type Arterial 01/18/2023 11:29 AM MANAGER CARD [facility] Blood BLOOD SPECIMEN / Unknown 01/18/2023 11:19 AM MANAGER CARD 01/18/2023 11:29 AM MANAGER CARD Eliana Enriquez MD LAB - POINT [facility] ARE ORDERABLES Performing Organization Address [facility] Co de Phone Number [facility] [address] [place] [address] * GLUCOSE - POINT OF CARE (01/18/2023 6:18 AM MANAGER CARD) Glucose WB/POC 122 70 - 125 mg/dL 01/18/2023 6:41 AM MANAGER CARD [facility] Specimen Type Cap Fingerstick 2022 6:41 AM MANAGER CARD [facility] Blood BLOOD SPECIMEN / Unknown 01/18/2023 6:18 AM MANAGER CARD 01/18/2023 6:41 AM MANAGER CARD Eliana Enriquez MD LAB - POINT OF ARE ORDERABLES Performing Organization Address [facility] Co de Phone Number [facility] [address] [place] [address] * PHOSPHORUS BLOOD (01/18/2023 5:48 AM MANAGER CARD) Phosphorus 3.05 2.3 - 4.7 mg/dL 01/18/2023 6:26 AM MANAGER CARD [facility] Blood BLOOD SPECIMEN / Unknown Lab Venipuncture / Unknown 01/18/2023 5:48 AM MANAGER CARD 01/18/2023 6:03 AM MANAGER CARD Eliana Enriquez MD LAB - CHEMISTRY ORDERABLES Performing Organization Address [facility] Co de Phone Number [facility] [address] * MAGNESIUM BLOOD (01/18/2023 5:48 AM [facility]) Pathologist [facility] Magnesium 2.0 1.6 - 2.6 mg/dL 01/18/2023 6:26 AM [facility] Blood BLOOD SPECIMEN / Unknown Lab Venipuncture / Unknown 01/18/2023 5:48 AM MANAGER CARD 01/18/2023 6:03 AM [facility] Eliana Enriquez MD LAB - CHEMISTRY ORDERABLES [facility] [address] * (ABNORMAL) COMPREHENSIVE METABOLIC PANEL (01/18/2023 5:48 AM [facility]) Pathologist [facility] Glucose 124 70 - 125 mg/dL 01/18/2023 6:26 AM [facility] Sodium 142 136 - 145 mmol/L 01/18/2023 6:26 AM [facility] Potassium 4.3 3.4 - 5.1 mmol/L 01/18/2023 6:26 AM [facility] Chloride 109(H) 98 - 107 mmol/L 01/18/2023 6:26 AM [facility] CO2 24 22 - 29 mmol/L 01/18/2023 6:26 AM [facility] Calcium 9.13 8.4 - 10.2 mg/dL 01/18/2023 6:26 AM [facility] Anion Gap 9 6 - 16 mmol/L 01/18/2023 6:26 AM [facility] BUN 15.6 8.4 - 25.7 mg/dL 01/18/2023 6:26 AM [facility] Creatinine 0.67(L) 0.72 - 1.25 mg/dL 01/18/2023 6:26 AM [facility] Alkaline Phosphatase 69 40 - 150 U/L 01/18/2023 6:26 AM [facility] ALT 38 <=55 U/L 01/18/2023 6:26 AM [facility] AST 32 5 - 34 U/L 01/18/2023 6:26 AM [facility] Protein Total 6.7 6.4 - 8.3 gm/dL 01/18/2023 6:26 AM [facility] Albumin 3.7 3.4 - 4.8 gm/dL 01/18/2023 6:26 AM [facility] Globulin Total 3.0 2.6 - 4.0 gm/dL 01/18/2023 6:26 AM [facility] Albumin/Globulin Ratio 1.2 0.9 - 1.6 01/18/2023 6:26 AM [facility] Bilirubin Total 1.2 0.2 - 1.2 mg/dL 01/18/2023 6:26 AM [facility] eGFR >90 >90 mL/min/1.7 3m2 01/18/2023 6:26 AM [facility] Comment:The GFR result was c alculated using the updated CKD-EPI Creatinine Equation (2020). Blood BLOOD SPECIMEN / Unknown Lab Venipuncture / Unknown 01/18/2023 5:48 AM MANAGER CARD 01/18/2023 6:03 AM [facility] Eliana Enriquez MD LAB - CHEMISTRY ORDERABLES Performing Organization Address [facility] de Phone Number [facility] [address] * (ABNORMAL) CBC W AUTO DIFFERENTIAL (01/18/2023 5:48 AM [facility]) WBC 11.8(H) 4.0 - 10.0 x10E9/L 01/18/2023 6:06 AM [facility] RBC 3.59(L) 4.40 - 6.10 x10E12/L 01/18/2023 6:06 AM [facility] Hemoglobin 12.7(L) 13.7 - 17.5 gm/dL 01/18/2023 6:06 AM [facility] Hematocrit 36.9(L) 40.1 - 51.0 % 01/18/2023 6:06 AM [facility] MCV 102.8(H) 78.0 - 100.0 fl 01/18/2023 6:06 AM [facility] MCH 35.4(H) 25.6 - 34.0 pg 01/18/2023 6:06 AM [facility] MCHC 34.4 32.3 - 36.5 gm/dL 01/18/2023 6:06 AM [facility] RDW 13.3 11.6 - 14.4 % 01/18/2023 6:06 AM [facility] MPV 9.4 9.4 - 12.4 fl 01/18/2023 6:06 AM [facility] Platelet Count 224 163 - 369 x10E9/L 01/18/2023 6:06 AM [facility] Neutrophils % 83.1(H) 40.0 - 75.0 % 01/18/2023 6:06 AM [facility] Lymphocytes % 6.8(L) 19.3 - 53.1 % 01/18/2023 6:06 AM [facility] Monocytes % 9.5 4.7 - 12.5 % 01/18/2023 6:06 AM [facility] Eosinophils % 0.1(L) 0.7 - 7.0 % 01/18/2023 6:06 AM [facility] Basophils % 0.1 0.1 - 1.2 % 01/18/2023 6:06 AM [facility] Immature Granulocytes 0.4 0 - 0.5 % 01/18/2023 6:06 AM [facility] Neutrophil Absolute 9.83(H) 1.56 - 6.13 x10E9/L 01/18/2023 6:06 AM [facility] Lymphocytes Absolute 0.81(L) 1.18 - 3.74 x10E9/L 01/18/2023 6:06 AM [facility] Monocytes Absolute 1.12(H) 0.24 - 0.86 x10E9/L 01/18/2023 6:06 AM [facility] Eosinophils Absolute 0.01(L) 0.04 - 0.54 x10E9/L 01/18/2023 6:06 AM [facility] Basophils Absolute 0.01 0.01 - 0.08 x10E9/L 01/18/2023 6:06 AM [facility] Immature Granulocytes Absolute 0.05(H) 0 - 0.03 x10E9/L 01/18/2023 6:06 AM [facility] nRBC Auto 0 <=0 /100 WBC 01/18/2023 6:06 AM [facility] nRBC Absolute 0.00 <=0 x10E9/L 01/18/2023 6:06 AM [facility] Blood BLOOD SPECIMEN / Unknown Lab Venipuncture / Unknown 01/18/2023 5:48 AM MANAGER CARD 01/18/2023 6:03 AM MANAGER CARD Eliana Enriquez MD LAB - HEMATOLOGY ORDERABLES Performing Organization Address [facility] Co de Phone Number [facility] [address] * VITAMIN D 25-HYDROXY (01/18/2023 5:48 AM MANAGER CARD) Vitamin D, 25 Hydroxy 42.0 30 - 80 ng/mL 01/18/2023 6:43 AM MANAGER CARD [facility] Blood BLOOD SPECIMEN / Unknown Lab Venipuncture / Unknown 01/18/2023 5:48 AM MANAGER CARD 01/18/2023 6:03 AM MANAGER CARD Narrative [facility] - 01/18/2023 6:43 AM MANAGER CARD Reference Values: The recommendation for 25-Hydroxy Vitamin [...] performed to confirm the result. Anusha Campa MARKETING AND DEVELOPMENT COORDINATOR-REMOTE SENSING RESEARCH SCIENTIST LAB - CHEMISTRY ORDERABLES Performing Organization Address [facility] Co de Phone Number [facility] [address] * LIPID PROFILE (01/18/2023 5:48 AM MANAGER CARD) Cholesterol 170 <200 mg/dL 01/18/2023 6:26 AM MANAGER CARD [facility] Triglycerides 86 <150 mg/dL 01/18/2023 6:26 AM [facility] HDL Cholesterol 51 >40 mg/dL 3 6:26 AM [facility] Chol HDL Ratio 3.3 1.0 - 6.0 01/18/2023 6:26 AM [facility] LDL Calculated 102 65 - 130 mg/dL 01/18/2023 6:26 AM [facility] VLDL Calculated 17 <=30 mg/dL 6:26 AM [facility] Blood BLOOD SPECIMEN / Unknown Lab Venipuncture / Unknown 01/18/2023 5:48 AM [facility] 01/18/2023 6:03 AM [facility] - 01/18/2023 6:26 AM [facility] Lipid Profile Comment: CHOLESTEROL LEVEL..................CLINICAL [...] 2X AVERAGE.................. 9.5 ...................... 7.0 3X [place]...................>23........................>11 [facility] LAB - CHEMISTRY ORDERABLES Performing Organization Address [facility] Co de Phone Number [facility] [address] * TSH REFLEX FREE T4 (01/18/2023 5:48 AM MANAGER CARD) TSH 1.9327 0.35 - 4.94 uIU/mL 01/18/2023 6:46 AM MANAGER CARD [facility] Comment:TSH Normal, Reflex F ree T4 Not Performed. Blood BLOOD SPECIMEN / Unknown Lab Venipuncture / Unknown 01/18/2023 5:48 AM MANAGER CARD 01/18/2023 6:03 AM MANAGER CARD [facility] LAB - CHEMISTRY ORDERABLES Performing Organization Address [facility] de Phone Number [facility] [address] [place] [address] * HEMOGLOBIN A1C (01/18/2023 5:48 AM MANAGER CARD) Hemoglobin A1c 5.1 4.2 - 5.6 % 01/18/2023 6:13 AM [facility] Estimated Average Glucose 100 mg/dL 01/18/2023 6:13 AM [facility] Blood BLOOD SPECIMEN / Unknown Lab Venipuncture / Unknown 01/18/2023 5:48 AM MANAGER CARD 01/18/2023 6:03 AM MANAGER CARD Narrative [facility] - 01/18/2023 6:13 AM [facility] HbA1c Interpretation: Normal: < 5.7% [...] LAB - CHEMISTRY ORDERABLES Performing Organization Address [facility] de Phone Number [facility] [address] [place] [address] * (ABNORMAL) GLUCOSE - POINT OF CARE (01/17/2023 9:58 PM MANAGER CARD) Glucose WB/POC 149(H) 70 - 125 mg/dL 01/17/2023 10:00 PM MANAGER CARD [facility] Specimen Type Cap Fingerstick 2022 10:00 PM MANAGER CARD [facility] Blood BLOOD SPECIMEN / Unknown 01/17/2023 9:58 PM MANAGER CARD 01/17/2023 10:00 PM MANAGER CARD Eliana Enriquez MD LAB - POINT OF C ARE ORDERABLES Performing Organization Address [facility] de Phone Number [facility] [address] [place] [address] * MAGNESIUM BLOOD (01/17/2023 6:32 PM MANAGER CARD) Magnesium 2.1 1.6 - 2.6 mg/dL 01/17/2023 7:00 PM MANAGER CARD [facility] Blood BLOOD SPECIMEN / Unknown Lab Venipuncture / Unknown 01/17/2023 6:32 PM MANAGER CARD 01/17/2023 6:36 PM MANAGER CARD Fior Garvey MD LAB - CHEMISTRY OLIVIA MERIDA Performing Organization Address [facility] Co de Phone Number [facility] [address] * GLUCOSE - POINT OF CARE (01/17/2023 4:25 PM MANAGER CARD) Glucose WB/POC 124 70 - 125 mg/dL 01/17/2023 4:27 PM MANAGER CARD [facility] Specimen Type Cap Fingerstick 2022 4:27 PM MANAGER CARD [facility] Blood BLOOD SPECIMEN / Unknown 01/17/2023 4:25 PM MANAGER CARD 01/17/2023 4:27 PM MANAGER CARD Eliana Enriquez MD LAB - POINT OF C ARE ORDERABLES Performing Organization Address City/[facility]/ZIP Co de Phone Number [facility] [address] [place] [address] * PHOSPHORUS BLOOD (01/17/2023 11:30 AM MANAGER CARD) Phosphorus 4.38 2.3 - 4.7 mg/dL 01/17/2023 11:57 AM MANAGER CARD [facility] Blood BLOOD SPECIMEN / Unknown Lab Venipuncture / Unknown 01/17/2023 11:30 AM MANAGER CARD 01/17/2023 11:33 AM MANAGER CARD Eliana Enriquez MD LAB - CHEMISTRY ORDERABLES [facility] [address] * MAGNESIUM BLOOD (01/17/2023 11:30 AM MANAGER CARD) Magnesium 1.7 1.6 - 2.6 mg/dL 01/17/2023 11:57 AM MANAGER CARD [facility] Blood BLOOD SPECIMEN / Unknown Lab Venipuncture / Unknown 01/17/2023 11:30 AM MANAGER CARD 01/17/2023 11:33 AM MANAGER CARD Eliana Enriquez MD LAB - CHEMISTRY ORDERABLES [facility] [address] [place] [address] * (ABNORMAL) COMPREHENSIVE METABOLIC PANEL (01/17/2023 11:30 AM [facility]) [facility] Glucose 100 70 - 125 mg/dL 01/17/2023 11:57 AM [facility] Sodium 143 136 - 145 mmol/L 01/17/2023 11:57 AM [facility] Potassium 4.1 3.4 - 5.1 mmol/L 01/17/2023 11:57 AM [facility] Chloride 110(H) 98 - 107 mmol/L 01/17/2023 11:57 AM [facility] CO2 21(L) 22 - 29 mmol/L 01/17/2023 11:57 AM [facility] Calcium 9.23 8.4 - 10.2 mg/dL 01/17/2023 11:57 AM [facility] Anion Gap 16 6 - 16 mmol/L 01/17/2023 11:57 AM [facility] BUN 12.3 8.4 - 25.7 mg/dL 01/17/2023 11:57 AM [facility] Creatinine 0.62(L) 0.72 - 1.25 mg/dL 01/17/2023 11:57 AM [facility] Alkaline Phosphatase 73 40 - 150 U/L 01/17/2023 11:57 AM [facility] ALT 48 <=55 U/L 01/17/2023 11:57 AM [facility] AST 42(H) 5 - 34 U/L 01/17/2023 11:57 AM [facility] Protein Total 6.9 6.4 - 8.3 gm/dL 01/17/2023 11:57 AM [facility] Albumin 3.9 3.4 - 4.8 gm/dL 01/17/2023 11:57 AM [facility] Globulin Total 3.0 2.6 - 4.0 gm/dL 01/17/2023 11:57 AM [facility] Albumin/Globulin Ratio 1.3 0.9 - 1.6 01/17/2023 11:57 AM [facility] Bilirubin Total 0.8 0.2 - 1.2 mg/dL 01/17/2023 11:57 AM [facility] eGFR >90 >90 mL/min/1.7 3m2 01/17/2023 11:57 AM [facility] Comment:The GFR result was c alculated using the updated CKD-EPI Creatinine Equation (2020). Blood BLOOD SPECIMEN / Unknown Lab Venipuncture / Unknown 01/17/2023 11:30 AM MANAGER CARD 01/17/2023 11:33 AM [facility] Eliana Enriquez MD LAB - CHEMISTRY ORDERABLES Performing Organization Address City/State/[facility] Co de Phone Number [facility] [address] * (ABNORMAL) CBC W AUTO DIFFERENTIAL (01/17/2023 11:30 AM [facility]) WBC 7.3 4.0 - 10.0 x10E9/L 01/17/2023 11:37 AM [facility] RBC 3.91(L) 4.40 - 6.10 x10E12/L 01/17/2023 11:37 AM [facility] Hemoglobin 13.4(L) 13.7 - 17.5 gm/dL 01/17/2023 11:37 AM [facility] Hematocrit 39.7(L) 40.1 - 51.0 % 01/17/2023 11:37 AM [facility] MCV 101.5(H) 78.0 - 100.0 fl 01/17/2023 11:37 AM [facility] MCH 34.3(H) 25.6 - 34.0 pg 01/17/2023 11:37 AM [facility] MCHC 33.8 32.3 - 36.5 gm/dL 01/17/2023 11:37 AM [facility] RDW 13.1 11.6 - 14.4 % 01/17/2023 11:37 AM [facility] MPV 9.0(L) 9.4 - 12.4 fl 01/17/2023 11:37 AM [facility] Platelet Count 197 163 - 369 x10E9/L 01/17/2023 11:37 AM [facility] Neutrophils % 72.6 40.0 - 75.0 % 01/17/2023 11:37 AM [facility] Lymphocytes % 15.4(L) 19.3 - 53.1 % 01/17/2023 11:37 AM [facility] Monocytes % 10.1 4.7 - 12.5 % 01/17/2023 11:37 AM [facility] Eosinophils % 1.2 0.7 - 7.0 % 01/17/2023 11:37 AM [facility] Basophils % 0.3 0.1 - 1.2 % 01/17/2023 11:37 AM [facility] Immature Granulocytes 0.4 0 - 0.5 % 01/17/2023 11:37 AM [facility] Neutrophil Absolute 5.27 1.56 - 6.13 x10E9/L 01/17/2023 11:37 AM [facility] Lymphocytes Absolute 1.12(L) 1.18 - 3.74 x10E9/L 01/17/2023 11:37 AM [facility] Monocytes Absolute 0.73 0.24 - 0.86 x10E9/L 01/17/2023 11:37 AM [facility] Eosinophils Absolute 0.09 0.04 - 0.54 x10E9/L 01/17/2023 11:37 AM [facility] Basophils Absolute 0.02 0.01 - 0.08 x10E9/L 01/17/2023 11:37 AM [facility] Immature Granulocytes Absolute 0.03 0 - 0.03 x10E9/L 01/17/2023 11:37 AM [facility] nRBC Auto 0 <=0 /100 WBC 01/17/2023 11:37 AM [facility] nRBC Absolute 0.00 <=0 x10E9/L 01/17/2023 11:37 AM [facility] Blood BLOOD SPECIMEN / Unknown Lab Venipuncture / Unknown 01/17/2023 11:30 AM MANAGER CARD 01/17/2023 11:33 AM [facility] Eliana Enriquez MD LAB - HEMATOLOGY ORDERABLES Performing Organization Address [facility]/State/[facility] Co de Phone Number [facility] [address] * GROSS + MICRO EXAM (ILL) (01/17/2023 10:44 AM [facility]) Case Report Surgical Pathology Report ? Case: [id number] ? Authorizing Provider: ??Eliana Enriquez MD ??Collected: ? 01/17/2023 10:44 AM ? Ordering Location: ? [facility] ? Received: ?01/18/2023 09:13 AM ? Pathologist: ? Dwight Mendez MD ? Specimen: ?Stomach Resect Sub, Stomach Remnants - Sleeve Gastrectomy ? 01/21/2023 12:25 PM [facility] Final Diagnosis Stomach, partial resection: Chronic gastritis with intestinal metaplasia, negative for Helicobacter. Comment: Helicobacter pylori IHC stain is negative. 01/21/2023 12:25 PM [facility] Microscopic Description and Comment Microscopic examination is performed and substantiates the above diagnosis. 01/21/2023 12:25 PM [facility] Gross Description The requisition [...] identified. The wall thickness is 0.1-0.2 cm. Medical Radiation Therapist sections are submitted in cassettes A1-A2 with sections subjacent to the staple line in A1. AW 01/21/2023 12:25 PM [facility] Pathologist Location at [facility] 01/21/2023 12:25 PM [facility] Disclaimer The performance characteristics [...] H&E slides and special stains prepared at [facility], [place]. [address] (CLIA# [id number]) unless otherwise specified. This case was interpreted by the [facility] Department of Pathology. When applicable, select reference laboratory testing is performed at the [facility] Pathology [facility], [address] [place] [address]. 01/21/2023 12:25 PM [facility] Embedded Images 01/21/2023 12:25 PM [facility] Pathology/Cytolo gy SPECIMEN FROM STOMACH OBTAINED BY PARTIAL GASTRECTOMY / Unknown 01/17/2023 10:44 AM MANAGER CARD 01/18/2023 9:13 AM MANAGER CARD Comment:Pre-op diagnosis: Morbid obesity (CMS/HCC) [E66.01] Eliana Enriquez MD LAB - PATHOLOGY/ CYTOLOGY ORDERABLES Performing Organization Address [facility]/State/[facility] de Phone Number [facility] [address] documented in this encounter Visit Diagnoses [...] Action Action Date Dose Rate Site acetaminophen (Ofirmev) injection 1,000 mg 1,000 mg, at 400 mL/hr, Intravenous, EVERY 6 HOURS, 2 doses, First dose on Tue01/17/23 at 1445, Last dose on Tue01/17/23 at 2045, See [employer] DSP for renal dosing guidelines. Patient preference for [...] a case lasting > 5 hours? Yes $ New Bag/Syringe 01/17/2023 9:37 PM MANAGER CARD 1,000 mg 400 mL/hr $ New Bag/Syringe 01/17/2023 2:39 PM MANAGER CARD 1,000 mg 400 mL /hr acetaminophen (Tylenol) tablet 1,000 mg 1,000 mg, Oral, EVERY 6 HOURS, 20 doses, First dose on Tu01/18/23 at 0245, Last dose on 01/22/23 at 2044, To follow IV tylenol doses Patient preference for lesser PRN pain meds may be honored when the patient requests a less strong medication, a lower dose, or a less intrusive route of administration when the lesser drug, dose and route have been ordered for the patient. This patient request must be documented in the MAR., Post-op $ Given 01/18/2023 11:21 AM MANAGER CARD 1,000 mg $ Given 01/18/2023 3:10 AM MANAGER CARD 1,000 mg celecoxib (CeleBREX) capsule 400 mg 400 mg, Oral, PRE-OP ONCE, 1 dose, On Tue01/17/23 at 0730, Patient preference for lesser PRN pain meds may be honored when the patient requests a less strong medication, a lower dose, or a less intrusive route of administration when the lesser drug, dose and route have been ordered for the patient. This patient request must be documented in the MAR., Pre-op $ Given 01/17/2023 7:53 AM MANAGER CARD 400 mg dextrose 10 % IV bolus 12.5 g, [...] STAT NOTIFY PROVIDER OF HYPOGLYCEMIC EVENT., Post-op famotidine (Pepcid) injection 20 mg 20 mg, [...] at least 2 minutes., Pre-op $ Given 01/17/2023 8:05 AM MANAGER CARD 20 mg fentaNYL (PF) (Sublimaze) injection 25 [...] must be documented in the MAR., PACU $ Given 01/17/2023 11:54 AM MANAGER CARD 25 mcg fentaNYL (PF) (Sublimaze) injection 37.5 mcg 37.5 [...] must be documented in the MAR., PACU $ Given 01/17/2023 11:42 AM MANAGER CARD 37.5 mcg $ Given 01/17/2023 11:29 AM MANAGER CARD 37.5 mcg fentaNYL (PF) (Sublimaze) injection 50 mcg 50 [...] MAR., Post-op $ Given 01/17/2023 12:59 PM MANAGER CARD 50 mcg gabapentin (Neurontin) capsule 300 mg 300 mg, Oral, ONCE, 1 dose, On Tue01/17/23 at 0730, Pre-op $ Given 01/17/2023 7:54 AM MANAGER CARD 300 mg glucagon (Glucagen) injection 1 mg 1 mg, [...] heparin injection 5,000 Units 5,000 Units, Subcutaneous, PRE-OP ONCE, 1 dose, On Tue01/17/23 at 0730, Pre-op $ Given 01/17/2023 7:52 AM MANAGER CARD 5,000 Units Abd Right Lower Quadrant heparin injection 5,000 Units 5,000 Units, Subcutaneous, EVERY 8 HOURS, First dose on Tue01/18/23 at 0900, Until Discontinued, Post-op $ Given 01/18/2023 8:31 AM MANAGER CARD 5,000 Units Abdominal Tissue lactated ringers infusion at 75 mL/hr, Intravenous, PRE-OP CONTINUOUS, Starting on Tue01/17/23 at 0730, Until Tue01/18/23 at 1520, Pre-op Current Rate 01/18/2023 6:23 AM MANAGER CARD 75 mL/hr $ New Bag/Syringe 01/18/2023 3:21 AM MANAGER CARD 75 mL/ hr Restarted 01/17/2023 11:24 AM MANAGER CARD lactated ringers infusion at 150 mL/hr, Intravenous, CONTINUOUS, Starting on Tue01/17/23 at 1230, Until Tue01/18/23 at 1229, Post-op Rate Change 01/18/2023 3:06 AM MANAGER CARD 150 mL/hr Rate Change 01/18/2023 3:00 AM MANAGER CARD 5 mL/hr $ New Bag/Syringe 01/17/2023 8:38 PM MANAGER CARD 150 mL /hr magnesium sulfate 2 g in [...] 30 ml/hr. Rate Change 01/17/2023 1:57 PM MANAGER CARD 5 mL/hr Current Rate 01/17/2023 12:30 PM MANAGER CARD 25 mL/hr $ New Bag/Syringe 01/17/2023 12:30 PM MANAGER CARD 2 g 25 mL /hr magnesium sulfate [...] ml/hr. $ New Bag/Syringe 01/18/2023 8:46 AM MANAGER CARD 2 g 25 mL/hr magnesium sulfate 4 [...] < 30 ml/hr. metoclopramide (Reglan) injection 10 mg 10 mg, Intravenous, PRE-OP ONCE, 1 dose, On Tue01/17/23 at 0730, Pre-op $ Given 01/17/2023 8:05 AM MANAGER CARD 10 mg metoclopramide (Reglan) injection 10 mg 10 mg, Intravenous, EVERY 6 HOURS, 4 doses, First dose on Tue01/17/23 at 1445, Last dose on Tue01/18/23 at 0845, Inject undiluted IV slowly over 1 to 2 minutes., Post-op $ Given 01/18/2023 8:31 AM MANAGER CARD 10 mg $ Given 01/18/2023 3:10 AM MANAGER CARD 10 mg $ Given 01/17/2023 9:31 PM MANAGER CARD 10 mg ondansetron (Zofran) injection 4 mg 4 mg, Intravenous, PRE-OP ONCE, 1 dose, On Tue01/17/23 at 0730, Pre-op $ Given 01/17/2023 8:05 AM MANAGER CARD 4 mg ondansetron (Zofran) injection 4 mg 4 mg, Intravenous, ONCE PRN, Nausea/Vomiting, 1 dose, Starting on Tue01/17/23 at 1121, Until Tue01/17/23 at 1133, First choice, PACU $ Given 01/17/2023 11:33 AM MANAGER CARD 4 mg ondansetron (Zofran) injection 4 mg 4 mg, Intravenous, EVERY 6 HOURS, 4 doses, First dose on Tue01/17/23 at 1745, Last dose on Tue01/18/23 at 1145, Administer over 2 to 5 minutes., Post-op $ Given 01/18/2023 11:23 AM MANAGER CARD 4 mg $ Given 01/18/2023 6:15 AM MANAGER CARD 4 mg $ Given 01/18/2023 12:40 AM MANAGER CARD 4 mg pantoprazole (Protonix) injection 40 mg 40 mg, Intravenous, DAILY, First dose on Tue01/17/23 at 1130, Until Discontinued, For every 40 mg of pantoprazole mix with 10 mL Normal Saline (final concentration = 4 mg/mL). Inject SLOWLY over 2 min., Post-op $ Given 01/18/2023 8:32 AM CS T 40 mg $ Given 01/17/2023 11:23 AM MANAGER CARD 40 mg scopolamine (Transderm-Scop) 1 patch 1 patch, Administer over 72 Hours, PRE-OP [...] 1 mg of scopolamine over 72 hours. $ Applied 01/17/2023 7:49 AM MANAGER CARD 1 patch Behind Right Ear thiamine (Vitamin B-1) 100 mg in 0.9% NaCl IV 50 mL IVPB 100 mg, at 100 mL/hr, Intravenous, DAILY, 3 doses, First dose on Tue01/17/23 at 1230, Last dose on Tue01/19/23 at 0900, Protect from light, Refrigerate, Post-op $ New Bag/Syringe 01/18/2023 8:42 AM MANAGER CARD 100 mg 100 mL/hr $ New Bag/Syringe 01/17/2023 1:34 PM MANAGER CARD 100 mg 100 mL /hr documented in this encounter Active and Recently Administered Medications Times are shown in MANAGER CARD. Scheduled Medication Order 01/16/2023 01/17/2023 01/18/2023 acetaminophen (Ofirmev) injection 1,000 mg (COMPLETED) 1,000 mg, at 400 mL/hr, Intravenous, ONCE, 1 dose, On Tue01/17/23 at 0845, See [employer]romedex for renal dosing guidelines. Patient preference for [...] 0941 ($ Given - Provider: Danny Wilkins APRN-JOB TRAINER) acetaminophen (Ofirmev) injection 1,000 mg (COMPLETED) 1,000 mg, at 400 mL/hr, Intravenous, EVERY 6 HOURS, 2 doses, First dose on Tue01/17/23 at 1445, Last dose on Tue01/17/23 at 2045, See Micromedex for renal dosing guidelines. Patient preference for [...] on Tue01/18/23 at 0245, Last dose on 01/22/23 at 2045, To follow IV tylenol doses [...] 0936 ($ New Bag/Syringe - Provider: Danny Wilkins, MARKETING AND DEVELOPMENT COORDINATOR-JOB TRAINER) celecoxib (CeleBREX) capsule 400 mg (COMPLETED) 400 [...] must be documented in the MAR., Pre-op 0753 ($ Given - Provider: Marlene Cordero RN) [...] Post-op 0831 ($ Given - Provider: Melania Trejo, Nurse Port Patrol Officer)1400 (Due) insulin aspart (NovoLOG) pen 0-4 Units [...] Post-op 2200 (Not Administered - Provider: Rere Villarreal RN - Reason: Per Administration Instructions) insulin aspart [...] ($ Given - Provider: Marlene Cordero RN) metoclopramide (Reglan) injection 10 mg (COMPLETED)(Linked Group 1) 10 mg, Intravenous, EVERY 6 HOURS, 4 doses, First dose on Tue01/17/23 at 1445, Last dose on Tue01/18/23 at 0845, Inject undiluted IV slowly over 1 to 2 minutes., Post-op 1415 ($ Given - Provider: Kathryn Galvez RN)2131 ($ Given - Provider: Rere Villarreal, LUZ) 0310 ($ Given - Provider: Rere Villarreal, LUZ)0831 ($ Given - Provider: Melania Trejo, Nurse Port Patrol Officer) ondansetron (Zofran) injection 4 mg (COMPLETED) 4 mg, Intravenous, PRE-OP ONCE, 1 dose, On Tue01/17/23 at 0730, Pre-op 0805 ($ Given - Provider: Marlene Cordero, LUZ) ondansetron (Zofran) injection 4 mg (COMPLETED)(Linked Group 2) 4 mg, Intravenous, EVERY 6 HOURS, 4 doses, First dose on Tue01/17/23 at 1745, Last dose on Tue01/18/23 at 1145, Administer over 2 to 5 minutes., Post-op 1730 ($ Given - Provider: Kathryn Galvez, RN) 0040 ($ Given - Provider: Rere Villarreal, RN)0615 ($ Given - Provider: Rere Villarreal, RN)1123 ($ Given - Provider: Cristina De La Cruz RN) pantoprazole (Protonix) injection 40 mg 40 mg, Intravenous, DAILY, First dose on Tue01/17/23 at 1130, Until Discontinued, For every 40 mg of pantoprazole mix with 10 mL Normal Saline (final concentration = 4 mg/mL). Inject SLOWLY over 2 min., Post-op 1123 ($ Given - Provider: Genny Amador RN) 0832 ($ Given - Provider: Melania Trejo, Nurse Port Patrol Officer) scopolamine (Transderm-Scop) 1 patch(Linked Group 3) 1 [...] hours. 0749 ($ Applied - Provider: Marlene Cordero, LUZ) 1418 (Due: Removed - Provider: Generic, Auto Release - Comment: Time automatically adjusted from order being discontinued) thiamine (Vitamin B-1) 100 mg in 0.9% NaCl IV 50 mL IVPB 100 mg, at 100 mL/hr, Intravenous, DAILY, 3 doses, First dose on Tue01/17/23 at 1230, Last dose on Tue01/19/23 at 0900, Protect from light, Refrigerate, Post-op 1334 ($ New Bag/Syringe - Provider: Kathryn Galvez, LUZ)1404 (Stopped - Provider: Kathryn Galvez RN) 0842 ($ New Bag/Syringe - Provider: Melania Trejo, Nurse [employer] Patrol Officer)0916 (Stopped - Provider: Cristina De La Cruz, RN) Continuous Medication Order 01/16/2023 01/17/2023 01/18/2023 lactated ringers infusion at 75 mL/hr, Intravenous, PRE-OP CONTINUOUS, Starting on Tue01/17/23 at 0730, Until Tue01/18/23 at 1520, Pre-op 0805 ($ New Bag/Syringe - Provider: Marlene Cordero RN)0918 (Rate Change - Provider: SOFIA Macias)1123 (Paused - Provider: SOFIA Macias - Comment: Switch to gravity)1124 (Restarted - Provider: SOFIA Macias) 0319 (Stopped - Provider: Rere Villarreal RN)0321 ($ New Bag/Syringe - Provider: Rere Villarreal RN)0623 (Current Rate - Provider: Rere Villarreal, LUZ) lactated ringers infusion () at 150 mL/hr, Intravenous, CONTINUOUS, Starting on Tue01/17/23 at 1230, Until Tue01/18/23 at 1229, Post-op 1231 ($ New Bag/Syringe - Provider: Kathryn Galvez RN)1334 (Paused - Provider: Rere Villarreal RN)1404 (Restarted - Provider: Rere Villarreal, RN)1415 (Current Rate - Provider: Rere Villarreal, RN)2019 (Rate Change - Provider: Rere Villarreal, RN)203 (Rate Change - Provider: Rere Villarreal, RN)203 ($ New Bag/Syringe - Provider: Lauren Fields RN) 0300 (Rate Change - Provider: Rere Villarreal, LUZ)0306 (Rate Change - Provider: Rere Villarreal, RN)1120 (Stopped - Provider: Cristina De La Cruz, RN) PRN Medication Order 01/16/2023 01/17/2023 01/18/2023 [...] PACU 1129 ($ Given - Provider: Genny Amador RN)1142 ($ Given - Provider: Genny Amador RN) [...] Post-op 1259 ($ Given - Provider: Kathryn Glavez RN) glucagon (Glucagen) injection 1 mg(Linked Group [...] ($ New Bag/Syringe - Provider: Kathryn Galvez, RN)1230 (Current Rate - Provider: Rere Villarreal, RN)1357 (Rate Change - Provider: Rere Villarreal, RN)1413 (Stopped - Provider: Rere Villarreal, RN)1417 (Stopped - Provider: Kathryn Galvez, RN) magnesium sulfate 2 g in 50 [...] New Bag/Syringe - Provider: Melania Trejo, Nurse Port Patrol Officer)1046 (Stopped - Provider: Cristina De La Cruz [...] ml/hr. documented in this encounter Care Teams Manager Ob Relationship Specialty Start Date End Date Betty Rodriguez MD [address] [place] [id number] PCP - General Internal Medicine 09/02/22 documented as of this encounter
--- OUTSIDE RECORDS SUMMARY | 2024-02-06 01:12 | XMS_ITS | Encounter Summary ---
Author Organization [facility] Health Address [address] [place] [address] Care Team Providers Care Workgroup Leader Name Role Phone Betty Rodriguez MD Primary Care Provider [phone] Encounter Details Date Type Department Care Team (Late st Contact Info) Description 01/11/2023 Orders Only [facility] [address] [place] [address] Shanel Ware, ASL INTERPRETER-STATION REPAIRER [address] [place] [phone] Elevated liver enzymes Social History Tobacco Use Types Packs/Day Years [...] AM CDT Hospital Encounter [facility] Op [address] [place] [address] Eliana Enriquez MD [address] [place] [phone] Surgery General 04/25/2024 9:44 AM CDT - 04/25/2024 10:10 AM CDT Surgery [facility] Op [address] [place] [address] Eliana Enriquez MD [address] [place] [address] ESOPHAGOGASTRODUODENOSCOPY WITH BIOPSY 05/03/2024 9:30 AM CDT Office Visit [facility] [address] [place] [address] Eliana Enriquez MD [address] [place] [address] 07/19/2024 9:00 AM CDT Office Visit [facility] [address] [place] [address] Anusha Campa APRN-STATION REPAIRER [address] [place] [address] 01/18/2025 9:00 AM SPINE SPECIALIST Clinical Support [facility] [address] [place] [address] 01/18/2025 9:30 AM SPINE SPECIALIST Office Visit [facility] [address] [place] [address] Anusha Campa ASL INTERPRETER-STATION REPAIRER [address] [place] [address] Scheduled Procedures Name Priority Associated Diagnoses Date/Ti me ESOPHAGOGASTRODUODENOSCOPY ( EGD) BIOPSY Status post bariatric surgery 04/25/2024 9:44 AM CDT documented as of this encounter Procedures Procedure Name Priority Date/Time Associated Diagnosis Comments US ABDOMEN LIMITED Routine 01/11/2023 Elevated liver enzymes documented in this encounter Results * US ABDOMEN LIMITED (01/11/2023) Anatomical Region Laterality Modality Abdomen Ultrasound Shanel Ware ASL INTERPRETER-STATION REPAIRER US ORDERA BLES documented in this encounter Visit Diagnoses Diagnosis Elevated liver enzymes Nonspecific elevation of levels of transaminase or lactic acid dehydrogenase (LDH) Status post bariatric surgery Bariatric surgery status documented in this encounter Care Teams Workgroup Leader Relationship Specialty Start Date End Date Betty Rodriguez MD [address] [place] [address] PCP - General Internal Medicine 09/02/22 documented as of this encounter
--- OUTSIDE RECORDS SUMMARY | 2024-02-06 01:12 | XMS_ITS | Encounter Summary ---
Author Organization [facility] Address [address] [place] [address] Care Team Providers Care Ticket Sales Agent Name Role Phone Betty Rodriguez MD Primary Care Provider [phone] Reason for Referral * Radiology Services (Routine) - Closed Specialty Diagnoses / Procedures Referred By Arnold t Referred To Contact Diagnoses Elevated liver enzymes Procedures US ABDOMEN LIMITED Shanel Ware APRN-AMADOU [address] [place] [address] Referral ID Status Reason Start Date Expiration Date Visits Re quested Visits Authorized [id number] Closed 02/04/2023 02/04/2024 1 1 HERY MAN Encounter Details Date Type Department Care Team (Late st Contact Info) Description 01/05/2023 Orders Only [facility] Weight Management Services [address] [place] [address] Shanel Ware APRN-AMADOU [address] [place] [address] Elevated liver enzymes Social History Tobacco Use [...] Description 04/25/2024 9:44 AM CDT Hospital Encounter [facility] - Dena Op [address] [place] [address] Eliana Enriquez MD [address] [place] [phone] Surgery General 04/25/2024 9:44 AM CDT - 04/25/2024 10:10 AM CDT Surgery [facility] - Dena Op [address] [place] [address] Eliana Enriquez MD [address] [place] [phone] ESOPHAGOGASTRODUODENOSCOPY WITH BIOPSY 05/03/2024 9:30 AM CDT Office Visit [facility] Weight Management Services [address] [place] [phone] Eliana Enriquez MD [address] [place] [address] 07/19/2024 9:00 AM CDT Office Visit [facility] Health Weight Management Services [address] [place] [address] Anusha Campa, ANALYSIS MANAGER-AIRPORT ATTENDANT [address] [place] [address] 01/18/2025 9:00 AM HATCHERY MAN Clinical Support [facility] Health Weight Management Services [address] [place] [address] 01/18/2025 9:30 AM HATCHERY MAN Office Visit [facility] Health Weight Management Services [address] [place] [phone] Anusha Campa, ANALYSIS MANAGER-AIRPORT ATTENDANT [address] [place] [address] Scheduled Procedures Name Priority Associated Diagnoses Date/Ti me ESOPHAGOGASTRODUODENOSCOPY ( EGD) BIOPSY Status post bariatric surgery 04/25/2024 9:44 AM CDT documented as of this encounter Results * US ABDOMEN LIMITED (01/11/2023) Anatomical Region Laterality Modality Abdomen Ultrasound Shanel Ware ANALYSIS MANAGER-AIRPORT ATTENDANT US ORDERA BLES documented in this encounter Visit Diagnoses Diagnosis Elevated liver enzymes- Primary Nonspecific elevation of levels of transaminase or lactic acid dehydrogenase (LDH) Status post bariatric surgery Bariatric surgery status documented in this encounter Care Teams Ticket Sales Agent Relationship Specialty Start Date End Date Betty Rodriguez MD [address] [place] [phone] PCP - General Internal Medicine 09/02/22 documented as of this encounter
--- OUTSIDE RECORDS SUMMARY | 2024-02-06 01:12 | XMS_ITS | Encounter Summary ---
Author Organization [facility] Address [address] [place] [address] Care Team Providers Care Bookkeeping Clerk Name Role Phone Betty Rodriguez MD Primary Care Provider [phone] Reason for Visit * Auth/Cert (Routine) Specialty Diagnoses / Procedures Referred By Contac t Referred To Contact Diagnoses Morbid obesity (HCC) Morbid obesity (CMS/HCC) [E66.01] Procedures NM LAP SLEEVE GASTRECTOMY LAPAROSCOPIC GASTRECTOMY (LONGITUDINAL/SLEEVE) Referral ID Status Reason Start Date Expiration Date Visits Re quested Visits Authorized [id number] 1 1 Encounter Details Date Type Department Care Team (Late st Contact Info) Description 01/17/2023 9:18 AM POCKETED SPRING MACHINE OPERATOR Anesthesia Event [facility] - Dena Op [address] [place] [address] Samantha Lucero MD [address] [place] [address] [address] [place] [address] Anesthesia Record Procedure Summary Procedure Name Responsible [...] an stop data 1124 An Stop Meds Name Total fentaNYL 100 mcg/2ml injection 200 mcg lidocaine 2% injection (20 mg/mL) 80 mg propofol 200mg/20mL injection 200 mg succinylcholine (ANECTINE) 20 mg/mL inje ction 160 mg rocuronium (ZEMURON) 10 mg/mL injection 70 mg ondansetron (ZOFRAN) 2 mg/mL injection 4 mg dexamethasone (DECADRON) 4 mg/ml injecti on 5 mg acetaminophen (Ofirmev) injection 1,000 mg 1,000 mg ceFAZolin (Ancef) 3 g in 0.9% NaCl IV 10 0 mL IVPB 3 g ketamine 50 mg/ml injection 50 mg sugammadex 100 mg/ml injection 200 mg lactated ringers infusion 1,500 mL * Agents Name Exp. Sevoflurane Exp. Desflurane Exp. N2O O2 Air Insp. Sevoflurane Insp. Desflurane N2O * Blood No blood administrations on file. [...] RN 01/18/23 0915 by Melania Trejo Nurse Travel Information Center Supervisor ETT Date: 01/17/23; Time : 0930; [...] Wilkins APRN-CRNA 01/17/23 1109 by Danny Wilkins APRN-MORGAN Procedural Site (Incision) 01/17/23; 0957; Abdomen; 4 [...] as of this encounter Progress Notes * Samantha Lucero MD - 01/17/2023 12:04 PM CST ANESTHESIA POSTOP EVALUATION NOTE Procedure: LAPAROSCOPIC SLEEVE GASTRECTOMY (Abdomen) Jayesh Anderson is a 67 year old male Patient Vitals for the past 6 hrs: BP Temp Pulse Resp SpO2 Pain Rating Score #1 Pain Scale/Observation Pulse - (SPO2/Cuff) 01/17/23 0737 140/75 97.9 ??F (36.6 ??C) 70 17 98 % 0 N -- 01/17/23 1118 127/69 -- -- 22 (!) 88 % -- -- 85 bpm 01/17/23 1119 -- 97.3 ??F (36.3 ??C) -- 27 94 % 0 N 83 bpm 01/17/23 1120 128/73 -- 79 24 94 % -- -- 80 bpm 01/17/23 1125 128/74 -- 77 20 97 % -- -- 76 bpm 01/17/23 1129 130/72 -- 77 26 98 % 5 N 76 bpm 01/17/23 1130 130/72 -- 74 26 98 % -- -- 75 bpm 01/17/23 1135 136/73 -- 79 18 96 % -- -- 78 bpm 01/17/23 1140 137/74 -- 77 20 94 % -- -- 78 bpm 01/17/23 1142 -- -- -- -- -- 5 N -- 01/17/23 1145 121/65 -- 81 13 94 % -- -- 80 bpm 01/17/23 1146 121/65 -- 81 24 94 % -- -- 81 bpm 01/17/23 1150 120/60 -- 79 27 94 % -- -- 79 bpm 01/17/23 1154 135/75 -- 80 24 94 % 4 N 80 bpm 01/17/23 1155 135/75 -- 80 18 92 % -- -- 80 bpm 01/17/23 1159 -- -- -- -- -- 3 N -- Anesthesia Type: general ETT Pre-op Diagnosis Codes: * Morbid obesity (CMS/HCC) [E66.01] Mental Status: awake, alert and oriented Neuro Status: No numbness, tingling or visual disturbances Respiratory Function: natural Cardiac Function: stable Postop Hydration: adequate Postop Nausea: treated/stable Assessment: no apparent anesthetic complications Patient Disposition: Release from Anesthesia Care NOTABLE EVENTS: No notable events documented. ETED SPRING MACHINE OPERATOR * Gabbie Contreras MD - 01/10/2023 11:18 AM CST ANESTHESIA PREOPERATIVE EVALUATION NOTE Procedure: LAPAROSCOPIC SLEEVE GASTRECTOMY (Abdomen) Last Clear Liquids: 0000 (01/10/2023 11:09 AM) Vitals: Patient Vitals for the past 6 hrs: BP Temp Pulse Resp SpO2 Pain Rating Score #1 01/10/23 1105 135/71 97.9 ??F (36.6 ??C) 97 20 97 % 3 LMP: No LMP for male patient. OB Status: unknown ANESTHESIA PRE-EVALUATION NOTE History of Present Illness: 67y/m morbidly obese with BMI 43 for LAPAROSCOPIC SLEEVE GASTRECTOMY (Abdomen) The patient is a current non-smoker. Physical Exam: Orientation X3 Airway/Mallampati Score: III Mouth Opening Distance: 3.5 fingerwidths Neck ROM: full TM Distance: < 3 FB Teeth: dentures/partials upper and dentures/partials lower Heart: normal - S1 S2 Lungs: clear to ausculation bilaterally Abdomen Exam: obese Review of Systems: History of anesthetic complications: No Sleep Apnea Risk: Yes, CPAP - compliant Malignant Hyperthermia: No GERD: Yes, well controlled Poor Exercise Tolerance: No Recent Chest Pain: No Shortness of Breath: No AICD/Pacemaker: No Renal Disease: No Diagnostic Tests: ECG(s) reviewed: Yes Chest X-Ray(s) reviewed: Yes. Echo(s) reviewed: Yes. Lab(s) reviewed: Yes. Other Findings: Cardiac clearance in chart= Low risk ANESTHESIA PLAN ASA Score: 3 NPO Status: Patient instructed to be NPO after midnight Anesthesia Plan: general and general ETT Planned Induction: intravenous, modified RSI and rapid sequence Planned Postop Destination: PACU Anesthetic plan was discussed with: patient Anesthetic Plan discussion was: Consented Use of blood products were discussed with: patient Use of blood product discussion was: Consented The patient's procedural Anesthetic Plan was discussed with the SENIOR RADIATION THERAPIST. BMI, Height, Weight Tobacco History Estimated body mass index is 43.94 kg/m?? as calculated from the following: Height as of this encounter: 1.829 m (6'). Weight as of this encounter: 147 kg (324 lb). Social History Tobacco Use Smoking Status Never Smokeless Tobacco Never Alcohol History Drug History Social History Substance and Sexual Activity Alcohol Use Yes Comment: 2-3x weekly Social History Substance and Sexual Activity Drug Use Never Outpatient Medications: Inpatient Medications: Outpatient Medications Marked as Taking for the 01/10/23 encounter (Hospital Encounter) with [facility] Medication Sig Last Dose ??? atorvastatin Take 1 (one) tablet by mouth at bedtime ??? Coenzyme Q10 (CO Q 10 PO) ??? lisinopril-hydroCHLOROthiazide Take 1 (one) tablet by mouth once daily ??? Centrum Silver Take 1 (one) tablet by mouth daily with food ??? omeprazole Take 1 (one) capsule by mouth 2 times daily, before breakfast and supper ??? vitamin D (ergocalciferol) Take 1 (one) capsule by mouth every 7 days Reasons: Vitamin D Deficiency No current facility-administered medications for this encounter. Allergies: No Known Allergies Relevant Problems Problem [...] BIOPSY ??? Lumbar Diskectomy ??? Meniscectomy Bilateral PER DIEM PHYSICAL THERAPIST Status: No LMP for male patient. unknown OB History No obstetric history on file. Covid Vaccine: Lab Results: No results found for requested labs within last 120 days. No results found for requested labs within last 120 days. ETED SPRING MACHINE OPERATOR documented in this encounter Procedure Notes * Danny Wilkins, CARPET OR RUG LAYER HELPER-SENIOR RADIATION THERAPIST - 01/17/2023 10:13 AM CSTAssociated Order(s): ETT Placement Endotracheal Tube Placement: Patient Location: OR. Intubation Event Date/Time: 01/17/2023 9:30 AM Procedure: intubation (59089). Procedure Section: Sedation: under general anesthesia. Indications for Airway Management: anesthesia Induction: modified rapid sequence Patient Position: sniffing and ramp/troop pillow Mask Ventilation: not attempted. [...] auscultation and CO2 monitor Tube secured with: adhesive tape. Dentition unchanged? Yes Difficult Airway? No. Procedure Start Time: 01/17/2023 9:30 AM. Staff Section Anesthesia Provider: Danny Wilkins APRN-CRNA, Performed the procedure Provider #1: Samantha Lucero MD. ETED SPRING MACHINE OPERATOR documented in this encounter Miscellaneous Notes * Anesthesia Transfer of Care - Danny Wilkins APRN-CRNA - 01/17/2023 11:16 AM CST ANESTHESIA TRANSFER OF CARE NOTE Today's Date: 01/17/2023 Date of : 1955 Patient: Jayesh Anderson Procedure(s): LAPAROSCOPIC SLEEVE GASTRECTOMY Surgeon(s): Primary: Eliana Enriquez MD Preop Diagnosis: Pre-op Diagnois: * Morbid obesity (CMS/HCC) [E66.01] Pre-op Meds (From admission, onward) Start Stop Status Route Frequency Ordered 01/17/23 0845 acetaminophen (Ofirmev) injection 1,000 mg 01/17/23 0941 Completed IV ONCE 01/17/23 0829 01/17/23 0730 ceFAZolin (Ancef) 3 g in 0.9% NaCl IV 100 mL IVPB 01/17/23 0956 Completed IV PRE-OP ONCE 01/17/23 0721 01/17/23 0730 celecoxib (CeleBREX) capsule 400 mg 01/17/23 0753 Completed PO PRE-OP ONCE 01/17/23 0721 01/17/23 0937 dexAMETHasone (Decadron) injection -- Sent IV PRN 01/17/23 1041 01/17/23 0730 famotidine (Pepcid) injection 20 mg 01/17/23 0805 Completed IV PRE-OP ONCE 01/17/23 0721 01/17/23 0922 fentaNYL (PF) (Sublimaze) injection -- Sent IV PRN 01/17/23 1008 01/17/23 1121 fentaNYL (PF) (Sublimaze) injection 25 mcg -- Verified IV EVERY 10 MIN PRN 01/17/23 1121 01/17/23 1121 fentaNYL (PF) (Sublimaze) injection 37.5 mcg -- Verified IV EVERY 10 MIN PRN 01/17/23 1121 01/17/23 0730 gabapentin (Neurontin) capsule 300 mg 01/17/23 0754 Completed PO ONCE 01/17/23 0721 01/17/23 0730 heparin injection 5,000 Units 01/17/23 0752 Completed SC PRE-OP ONCE 01/17/23 0721 01/17/23 1121 HYDROmorphone (Dilaudid) injection 0.5 mg -- Verified IV EVERY 10 MIN PRN 01/17/23 1121 01/17/23 0933 ketamine (Ketalar) injection -- Sent IV PRN 01/17/23 1008 01/17/23 0730 lactated ringers infusion -- Dispensed IV PRE-OP CONTINUOUS 01/17/23 0721 01/17/23 0923 lidocaine (Xylocaine) 2 % injection -- Sent IV PRN 01/17/23 1010 01/17/23 0730 metoclopramide (Reglan) injection 10 mg 01/17/23 0805 Completed IV PRE-OP ONCE 01/17/23 0721 01/17/23 1121 naloxone (Narcan) injection 0.04 mg -- Verified IV POST-OP MULTIPLE 01/17/23 1121 01/17/23 0937 ondansetron (Zofran) injection -- Sent IV PRN 01/17/23 1041 01/17/23 0730 ondansetron (Zofran) injection 4 mg 01/17/23 0805 Completed IV PRE-OP ONCE 01/17/23 0721 01/17/23 1121 ondansetron (Zofran) injection 4 mg -- Verified IV ONCE PRN 01/17/23 1121 01/17/23 1130 pantoprazole (Protonix) injection 40 mg -- Sent IV DAILY 01/17/23 1123 01/17/23 0927 propofol (Diprivan) injection -- Sent IV PRN 01/17/23 1010 01/17/23 0927 rocuronium (Zemuron) injection -- Sent IV PRN 01/17/23 1010 01/17/23 0730 scopolamine (Transderm-Scop) 1 patch See Hyperspace for full Linked Orders Report. 01/20/23 0749 Dispensed TD PRE-OP ONCE 01/17/23 0721 01/17/23 0900 scopolamine patch placement confirmation See Hyperspace for full Linked Orders Report. -- Verified TD 2 TIMES DAILY 01/17/23 0721 01/17/23 0730 sodium citrate-citric acid 500-334 mg/5 mL oral solution 01/17/23 1929 Dispensed PO PRE-OP ONCE 01/17/23 0721 01/17/23 0928 succinylcholine (Anectine) injection -- Sent IV PRN 01/17/23 1010 01/17/23 1105 sugammadex (Bridion) injection -- Sent IV PRN 01/17/23 1105 Post-op Diagnosis: * Morbid obesity (CMS/[facility]) [E66.01] . No Known Allergies Vitals: Patient Vitals for the past 3 hrs: BP Temp Resp SpO2 Pain Rating Score #1 01/17/23 1119 -- 97.3 ??F (36.3 ??C) 27 94 % 0 01/17/23 1118 127/69 -- 22 (!) 88 % -- Lines, Drains, and Airways Type Details Placement Removal Peripheral IV Date: 01/17/23; Time: 0745; Orientation: Posterior, Right; Location: Hand; Placed By:Patrick escobar; Gauge: 20 Gauge; Locals: None; Tolerance: Well 01/17/23 0745 by Marlene Cordero RN Peripheral IV Date: 01/17/23; Time: 0758; Orientation: Left, Posterior; Location: Wrist; Placed By:Patrick ESCOBAR; Gauge: 20 Gauge; Locals: None; Tolerance: Well 01/17/23 0758 by Marlene Cordero RN ETT Date: 01/17/23; Time: 0930; Placed By: Danny Wilkins APRN-SENIOR RADIATION THERAPIST; Vent: mask not attempted; Induction: Modified Rapid [...] APRN-CRNA 01/17/23 1109 by Danny Wilkins APRN-CRNA Intraprocedure I/O Totals Intake ceFAZolin (Ancef) 3 g in 0.9% NaCl IV 100 mL IVPB 100.00 mL Total Intake 100 mL Patient Transfer Location: PACU Transport Airway: oral airway Complications: None Handoff Given? Yes Checklist or [...] of report from the receiving PACUteam. SOFIA Macias ETED SPRING MACHINE OPERATOR documented in this encounter Plan of Treatment Upcoming Encounters Date Type Department Care Team (Latest Contact Info) Description 04/25/2024 9:44 AM CDT Hospital Encounter [facility] - Dena Op [address] [place] [address] Eliana Enriquez MD [address] [place] [phone] Surgery General 04/25/2024 9:44 AM CDT - 04/25/2024 10:10 AM CDT Surgery [facility] - Dena Op [address] [place] [address] Eliana Enriquez MD [address] [place] [address] ESOPHAGOGASTRODUODENOSCOPY WITH BIOPSY 05/03/2024 9:30 AM CDT Office Visit [facility] Health Weight Management Services [address] [place] [facility] [place] [address] Eliana Enriquez MD [address] [place] [address] 07/19/2024 9:00 AM CDT Office Visit [facility] Weight Management Services [address] [place] [address] Anusha Campa, CARPET OR RUG LAYER HELPER-REAL ESTATE INVESTMENT ANALYST [address] [place] [address] 01/18/2025 9:00 AM POCKETED SPRING MACHINE OPERATOR Clinical Support [facility] Health Weight Management Services [address] [place] [address] 01/18/2025 9:30 AM POCKETED SPRING MACHINE OPERATOR Office Visit [facility] Weight Management Services [address] [place] [address] Anusha Campa, CARPET OR RUG LAYER HELPER-REAL ESTATE INVESTMENT ANALYST [address] [place] [address] Scheduled Procedures Name Priority Associated Diagnoses Date/Ti me ESOPHAGOGASTRODUODENOSCOPY ( EGD) BIOPSY Status post bariatric surgery 04/25/2024 9:44 AM CDT documented as of this encounter Procedures Procedure Name Priority Date/Time Associated Diagnosis Comments ENDOTRACHEAL TUBE NOTE Routine 01/17/2023 10:13 AM POCKETED SPRING MACHINE OPERATOR documented in this encounter Results * ETT LINE PERFORMABLE (01/17/2023 10:13 AM POCKETED SPRING MACHINE OPERATOR) Narrative Danny Wilkins APRN-CRNA - 01/17/2023 10:13 AM POCKETED SPRING MACHINE OPERATOR Danny Wilkins APRN-CRNA ? 01/17/2023 10:14 AM Endotracheal Tube Placement: ? Patient Location: OR. Intubation Event Date/Time: ??01/17/2023 9:30 AM Procedure: intubation (98452). Procedure Section: ?? Sedation: under general anesthesia. [...] AM. Staff Section ? Anesthesia Provider: Danny Wilkins, CARPET OR RUG LAYER HELPER-SENIOR RADIATION THERAPIST, Performed the procedure ? Provider #1: Samantha Lucero MD. Samantha Lucero MD GENERAL ANESTHESIA O RDERABLES documented in this encounter Visit Diagnoses Not on filedocumented in this encounter Administered Medications Inactive Administered Medications - up to 3 most recent administrations Medication Order MAR Action Action Date Dose Rate Site acetaminophen (Ofirmev) injection 1,000 mg 1,000 mg, at 400 mL/hr, Intravenous, ONCE, [...] case lasting > 5 hours? No, Pre-op $ Given 01/17/2023 9:41 AM POCKETED SPRING MACHINE OPERATOR 1,000 mg ceFAZolin (Ancef) 3 g in 0.9% NaCl IV 100 mL IVPB 3 g, at 200 mL/hr, Intravenous, PRE-OP ONCE, 1 dose, On Tue01/17/23 at 0730, Administer 30 minutes prior to surgical incision. Repeat dose in 3 hours if surgical incision not closed., Indication for anti-infective therapy: Surgical prophylaxis, Pre-op $ New Bag/Syringe 01/17/2023 9:36 AM POCKETED SPRING MACHINE OPERATOR 3 g dexAMETHasone (Decadron) injection Intravenous, PRN, Starting on Tue01/17/23 at 0937, Until Tue01/17/23 at 1124, Anesthesia Intra-op $ Given 01/17/2023 9:37 AM POCKETED SPRING MACHINE OPERATOR 5 mg fentaNYL (PF) (Sublimaze) injection Intravenous, PRN, Starting on Tue01/17/23 at 0922, Until Tue01/17/23 at 1124, Anesthesia Intra-op $ Given 01/17/2023 11:05 AM POCKETED SPRING MACHINE OPERATOR 50 mcg $ Given 01/17/2023 10:02 AM POCKETED SPRING MACHINE OPERATOR 50 mcg $ Given 01/17/2023 9:52 AM POCKETED SPRING MACHINE OPERATOR 50 mcg ketamine (Ketalar) injection Intravenous, PRN, Starting on Tue01/17/23 at 0933, Until Tue01/17/23 at 1124, Anesthesia Intra-op $ Given 01/17/2023 9:33 AM POCKETED SPRING MACHINE OPERATOR 50 mg lactated ringers infusion at 75 mL/hr, Intravenous, PRE-OP CONTINUOUS, Starting on Tue01/17/23 at 0730, Until Tue01/18/23 at 1520, Pre-op Current Rate 01/18/2023 6:23 AM POCKETED SPRING MACHINE OPERATOR 75 mL/h r $ New Bag/Syringe 01/18/2023 3:21 AM POCKETED SPRING MACHINE OPERATOR 75 mL/ hr Restarted 01/17/2023 11:24 AM POCKETED SPRING MACHINE OPERATOR lidocaine (Xylocaine) 2 % injection Intravenous, PRN, Starting on Tue01/17/23 at 0923, Until Tue01/17/23 at 1124, Anesthesia Intra-op $ Given 01/17/2023 9:23 AM POCKETED SPRING MACHINE OPERATOR 80 mg ondansetron (Zofran) injection Intravenous, PRN, Starting on Tue01/17/23 at 0937, Until Tue01/17/23 at 1124, Anesthesia Intra-op $ Given 01/17/2023 9:37 AM POCKETED SPRING MACHINE OPERATOR 4 mg propofol (Diprivan) injection Intravenous, PRN, Starting on Tue01/17/23 at 0927, Until Tue01/17/23 at 1124, Anesthesia Intra-op $ Given 01/17/2023 9:29 AM POCKETED SPRING MACHINE OPERATOR 50 mg $ Given 01/17/2023 9:27 AM POCKETED SPRING MACHINE OPERATOR 150 mg rocuronium (Zemuron) injection Intravenous, PRN, Starting on Tue01/17/23 at 0927, Until Tue01/17/23 at 1124, Anesthesia Intra-op $ Given 01/17/2023 9:54 AM POCKETED SPRING MACHINE OPERATOR 20 mg $ Given 01/17/2023 9:42 AM POCKETED SPRING MACHINE OPERATOR 20 mg $ Given 01/17/2023 9:33 AM POCKETED SPRING MACHINE OPERATOR 20 mg succinylcholine (Anectine) injection Intravenous, PRN, Starting on Tue01/17/23 at 0928, Until Tue01/17/23 at 1124, Anesthesia Intra-op $ Given 01/17/2023 9:28 AM POCKETED SPRING MACHINE OPERATOR 160 mg sugammadex (Bridion) injection Intravenous, PRN, Starting on Tue01/17/23 at 1105, Until Tue01/17/23 at 1124, Anesthesia Intra-op $ Given 01/17/2023 11:05 AM POCKETED SPRING MACHINE OPERATOR 200 mg documented in this encounter Care Teams Bookkeeping Clerk Relationship Specialty Start Date End Date Betty Rodriguez MD [address] [place] [address] PCP - General Internal Medicine 09/02/22 documented as of this encounter
--- OUTSIDE RECORDS SUMMARY | 2024-02-06 01:12 | XMS_ITS | Encounter Summary ---
Author Organization [facility] Address [address] [facility] [place] [address] Care Team Providers Care Microwave Radio Technician Name Role Phone Betty Rodriguez MD Primary Care Provider [phone] Reason for Visit * Reason Comments Refill Request Encounter Details Date Type Department Care Team (Late st Contact Info) Description 01/12/2023 Refill [facility] [address] [place] [address] Eliana Enriquez MD [address] [place] [address] Refill Request Social History Tobacco [...] Description 04/25/2024 9:44 AM CDT Hospital Encounter [facility] Op [address] [place] [address] Eliana Enriquez MD [address] [place] [phone] Surgery General 04/25/2024 9:44 AM CDT - 04/25/2024 10:10 AM CDT Surgery [facility] Op [address] [place] [address] Eliana Enriquez MD [address] [place] [address] ESOPHAGOGASTRODUODENOSCOPY WITH BIOPSY 05/03/2024 9:30 AM CDT Office Visit [facility] [address] [place] [address] Eliana Enriquez MD [address] [place] [address] 07/19/2024 9:00 AM CDT Office Visit [facility] Health Weight Management Services [address] [place] [address] Anusha Campa APRN-SQL REPORT WRITER [address] [place] [address] 01/18/2025 9:00 AM STACK ATTENDANT Clinical Support [facility] Health Weight Management Services [address] [place] [address] 01/18/2025 9:30 AM STACK ATTENDANT Office Visit [facility] [address] [place] [phone] Anusha Campa APRN-SQL REPORT WRITER [address] [place] [address] Scheduled Procedures Name Priority Associated Diagnoses Date/Ti me ESOPHAGOGASTRODUODENOSCOPY ( EGD) BIOPSY Status post bariatric surgery 04/25/2024 9:44 AM CDT documented as of this encounter Visit Diagnoses Not on filedocumented in this encounter Care Teams Microwave Radio Technician Relationship Specialty Start Date End Date Betty Rodriguez MD [address] [place] [phone] PCP - General Internal Medicine 09/02/22 documented as of this encounter
--- OUTSIDE RECORDS SUMMARY | 2024-02-06 01:12 | XMS_ITS | Encounter Summary ---
Author Organization [facility] Address [address] [place] [address] Care Team Providers Care Etl Bi Developer Name Role Phone Betty Rodriguez MD Primary Care Provider [phone] Encounter Details Date Type Department Care Team (Latest Contact Info) Description 01/10/2023 Travel Social History Tobacco Use Types Packs/Day [...] Description 04/25/2024 9:44 AM CDT Hospital Encounter [facility] - [facility] Op [address] [place] [address] Eliana Enriquez MD [address] [place] [address] Surgery General 04/25/2024 9:44 AM CDT - 04/25/2024 10:10 AM CDT Surgery [facility] - Dena Op [address] [place] [address] Eliana Enriquez MD [address] [place] [address] ESOPHAGOGASTRODUODENOSCOPY WITH BIOPSY 05/03/2024 9:30 AM CDT Office Visit [facility] Health Weight Management Services [address] [place] [address] Eliana Enriquez MD [address] [place] [address] 07/19/2024 9:00 AM CDT Office Visit [facility] Health Weight Management Services [address] [place] [address] Anusha Campa, TURNING AND BEADING MACHINE OPERATOR-COMBINATION WELDER [address] [place] [address] 01/18/2025 9:00 AM LOGISTICS ENGINEER Clinical Support [facility] Health Weight Management Services [address] [place] [address] 01/18/2025 9:30 AM LOGISTICS ENGINEER Office Visit [facility] Health Weight Management Services [address] [place] [address] Anusha Campa, TURNING AND BEADING MACHINE OPERATOR-COMBINATION WELDER [address] [place] [address] Scheduled Procedures Name Priority Associated Diagnoses Date/Ti me ESOPHAGOGASTRODUODENOSCOPY ( EGD) BIOPSY Status post bariatric surgery 04/25/2024 9:44 AM CDT documented as of this encounter Visit Diagnoses Not on filedocumented in this encounter Care Teams Etl Bi Developer Relationship Specialty Start Date End Date Betty Rodriguez MD [address] [place] [address] PCP - General Internal Medicine 09/02/22 documented as of this encounter
--- OUTSIDE RECORDS SUMMARY | 2024-02-06 01:12 | XMS_ITS | Encounter Summary ---
Author Organization [facility] Address [address] [place] [address] Care Team Providers Care Recycling Crew Supervisor Name Role Phone Betty Rodriguez MD Primary Care Provider [phone] Reason for Visit * Reason Onset Date Comments General 01/05/2023 Encounter Details Date Type Department Care Team (Late st Contact Info) Description 01/05/2023 Telephone [facility] Weight Management Services [address] [place] [address] Shanel Ware, SPRAY DYER-TRUCK WASHER [address] [place] [address] General Social History Tobacco Use Types Packs/Day Years [...] encounter Miscellaneous Notes * Telephone Encounter - Divine Arambula LPN - 01/12/2023 11:42 AM CST US abd reviewed by Shanel and scanned into media. M GATHERER * Telephone Encounter - Divine Arambula LPN - 01/05/2023 10:44 AM CST Per Shanel US abd needs completed prior to surgery 01/17/2023. Spoke with Eulalia Kevin with [facility] dept ( ) regarding US abdomen CPT 41652. Dusty stated no PA needed for this CPT code. Scheduled US abdomen at [facility] per patient request. Appt Tuesday01/11/2023 at8:30, patient to arrive at 8:15. Patient to be NPO 8 hours prior. Order faxed to [phone]. Notified patient of appt details and to be NPO 8 hours prior. Patient voiced understanding. M GATHERER documented in this encounter Plan of Treatment Upcoming Encounters Date Type Department Care Team (Latest Contact Info) Description 04/25/2024 9:44 AM CDT Hospital Encounter [facility] - Dena Op [address] [place] [address] Eliana Enriquez MD [address] [place] [address] Surgery General 04/25/2024 9:44 AM CDT - 04/25/2024 10:10 AM CDT Surgery [facility] - Dena Op [address] [place] [address] Eliana Enriquez MD [address] [place] [address] ESOPHAGOGASTRODUODENOSCOPY WITH BIOPSY 05/03/2024 9:30 AM CDT Office Visit [facility] Weight Management Services [address] [place] [address] Eliana Enriquez MD [address] [place] [address] 07/19/2024 9:00 AM CDT Office Visit [facility] Weight Management Services [address] [place] [address] Anusha Campa, SPRAY DYER-TRUCK WASHER [address] [place] [address] 01/18/2025 9:00 AM CREAM GATHERER Clinical Support [facility] Weight Management Services [address] [place] [address] 01/18/2025 9:30 AM CREAM GATHERER Office Visit [facility] Management Services [address] [place] [address] Anusha Campa, SPRAY DYER-TRUCK WASHER [address] [place] [address] Scheduled Procedures Name Priority Associated Diagnoses Date/Ti me ESOPHAGOGASTRODUODENOSCOPY ( EGD) BIOPSY Status post bariatric surgery 04/25/2024 9:44 AM CDT documented as of this encounter Visit Diagnoses Not on filedocumented in this encounter Care Teams Recycling Crew Supervisor Relationship Specialty Start Date End Date Betty Rodriguez MD [address] [place] [address] PCP - General Internal Medicine 09/02/22 documented as of this encounter
--- OUTSIDE RECORDS SUMMARY | 2024-02-06 01:12 | XMS_ITS | Encounter Summary ---
Author Organization [facility] Address [address] [place] [address] Care Team Providers Care Clinical Pharmacy Manager Name Role Phone Betty Rodriguez MD Primary Care Provider [phone] Encounter Details Date Type Department Care Team (Latest Contact Info) Description 12/28/2022 Travel Social History Tobacco Use Types Packs/Day [...] Hospital Encounter [facility] Dena Op [address] [place] [address] Eliana Enriquez MD [address] [place] [address] Surgery General 04/25/2024 9:44 AM CDT - 04/25/2024 10:[address] [facility] - Dena Op [address] [place] [address] Eliana Enriquez MD [address] [place] [address] ESOPHAGOGASTRODUODENOSCOPY WITH BIOPSY 05/03/2024 9:30 AM CDT Office Visit [facility] Health Weight Management Services [address] [place] [address] Eliana Enriquez MD [address] [place] [address] 07/19/2024 9:00 AM CDT Office Visit [facility] Health Weight Management Services [address] [place] [address] Anusha Campa, MEDICAL CUSTOMER SERVICE REPRESENTATIVE-HONING MACHINE OPERATOR PRODUCTION [address] [place] [address] 01/18/2025 9:00 AM MENTAL HYGIENIST Clinical Support [facility] Health Weight Management Services [address] [place] [address] 01/18/2025 9:30 AM MENTAL HYGIENIST Office Visit [facility] Health Weight Management Services [address] [place] [address] Anusha Campa, MEDICAL CUSTOMER SERVICE REPRESENTATIVE-HONING MACHINE OPERATOR PRODUCTION [address] [place] [address] Scheduled Procedures Name Priority Associated Diagnoses Date/Ti me ESOPHAGOGASTRODUODENOSCOPY ( EGD) BIOPSY Status post bariatric surgery 04/25/2024 9:44 AM CDT documented as of this encounter Visit Diagnoses Not on filedocumented in this encounter Care Teams Clinical Pharmacy Manager Relationship Specialty Start Date End Date Betty Rodriguez MD [address] [place] [address] PCP - General Internal Medicine 09/02/22 documented as of this encounter
--- OUTSIDE RECORDS SUMMARY | 2024-02-06 01:12 | XMS_ITS | Encounter Summary ---
Author Organization [facility] Address [address] [facility] [place] [address] Care Team Providers Care Steam Boiler Fireman Name Role Phone Betty Rodriguez MD Primary Care Provider [phone] Reason for Visit * Reason Comments Bariatric Surgery Pre-op Instruction Encounter Details Date Type Department Care Team (Late st Contact Info) Description 01/13/2023 11:00 AM OTOLARYNGOLOGY NURSE Office Visit [facility] Weight Management Services [address] [place] [address] Eliana Enriquez MD [address] [place] [address] Morbid obesity due to excess calories (HCC) (Primary Dx) Social History Tobacco Use Types Packs/Day Years Used Date Smoking Tobacco: Never Smokeless Tobacco: Never Tobacco Cessation:Counseling Given: Not Answered Alcohol Use Standard Drinks/Week Comments Not Currently [...] Sign Reading Time Taken Comments Blood Pressure 122/68 01/13/2023 11:22 AM OTOLARYNGOLOGY NURSE Pulse 80 01/13/2023 11:22 AM OTOLARYNGOLOGY NURSE Temperature 36.3 ??C (97.3 ??F) 01/13/2023 11:[address] Respiratory Rate 20 01/13/2023 11:22 AM OTOLARYNGOLOGY NURSE Oxygen Saturation 93% 01/13/2023 11:22 AM OTOLARYNGOLOGY NURSE Inhaled Oxygen Concentration - - Weight 144.7 kg (319 lb) 01/13/2023 11:22 AM OTOLARYNGOLOGY NURSE Height 182.9 cm (6') 01/13/2023 11:22 AM OTOLARYNGOLOGY NURSE Body Mass Index 43.26 01/13/2023 11:22 AM OTOLARYNGOLOGY NURSE documented in this encounter Functional Status Functional [...] Progress Notes * Eliana Enriquez MD - 01/13/2023 11:47 AM CST [facility] [place] [address] . . Date of encounter: No admission date for patient encounter. Provider: Eliana Enriquez MD Patient: Jayesh Anderson CSN: [id number] Specialty: Bariatric Surgery Date of : 1955 [...] mouth daily with food ??? Probiotic Product ([employer]) capsule Take 1 (one) capsule by mouth once daily ??? vitamin D, ergocalciferol, (Drisdol) 1.25 MG (04157 UT) capsule Take 1 (one) capsule by [...] No palpable visceromegaly. Incarcarated umbilical hernia. Skin: [place] and moist. No ulcers, rashes, or lesions. Extremities: Well perfused. No gross joint deformity noted Neurological: Cranial nerves 2-12 were grossly intact. Muscle strength was 5/5 and equal in all four extremities. Psychiatric: The patient's mood and affect appeared to be appropriate Labs No results for input(s): WBC , RBC , HGB , HCT , PLTCOUNT in the last 83224 hours. No results for input(s): SODIUM , POTASSIUM , CO2 , BUN , CREATININE in the last 19607 hours. Invalid input(s): CLORIDE No results for input(s): GLUCOSE in the last 35866 hours. No results for input(s): AST , ALT in the last 60628 hours. No results for input(s): LDL , HDL , TRIG in the last 75715 hours. No results for input(s): HGBA1C in the last 37668 hours. No results for input(s): PT , PTT , INR , TSH in the last 94567 hours. No results for input(s): TSH in the last 16865 hours. No results for input(s): IRON in the last 60660 hours. No results for input(s): [id number] in the last 91803 hours. No results for input(s): VITAMINA in the last 59996 hours. No results for input(s): IRON in the last 78677 hours. No results for input(s): VITK1 in the last 08296 hours. No results for input(s): [id number] in the last 72493 hours. No results for input(s): ALPHATOCOPH in the last 22937 hours. No results for input(s): GAMMATOCOPH in the last 25534 hours. No results for input(s): MAGMGDL in the last 25492 hours. Some lab results will be in [...] VTE risk VTE risk assessment completed per [place] [facility] assessment tool ([employer]). ??Patient is noted to be of low [...] and Place. Surgery: Sleeve Gastrectomy. Place: At [facility]. Patient should qualify for staying more than 2 midnights in hospital. Patient education, risk explained and consent : he meets the criteria as set by the [employer] [place] [employer] that recommends bariatric surgery on [...] and having very close follow-up with a roof shingler and me. In addition he must continue [...] has attended pre operative education class by youth program director and the dietitian, but he will have additional education provided by the youth program director and roof shingler at [facility]. Because of the significant changes in his eating habits he will have to see a roof shingler following surgery. I have informed him that [...] Eliana Enriquez MD CC: Betty Rodriguez MD ARYNGOLOGY NURSE documented in this encounter Plan of Treatment Upcoming Encounters Date Type Department Care Team (Latest Contact Info) Description 04/25/2024 9:44 AM CDT Hospital Encounter [facility] - Dena Op [address] [place], [place] [address] Eliana Enriquez MD [address] [place] [phone] Surgery General 04/25/2024 9:44 AM CDT - 04/25/2024 10:10 AM CDT Surgery [facility] - Dena Op [address] [place], [place] [address] Eliana Enriquez MD [address] [place] [phone] ESOPHAGOGASTRODUODENOSCOPY WITH BIOPSY 05/03/2024 9:30 AM CDT Office Visit [facility] Weight Management Services [address] [place] [phone] Eliana Enriquez MD [address] [place] [address] 07/19/2024 9:00 AM CDT Office Visit [facility] Health Weight Management Services [address] [place] [address] Anusha Campa, SENIOR ORACLE [address] SQL DEVELOPER-PBX REPAIRER [address] [place] [address] 01/18/2025 9:00 AM OTOLARYNGOLOGY NURSE Clinical Support [facility] Health Weight Management Services [address] [place] [address] 01/18/2025 9:30 AM OTOLARYNGOLOGY NURSE Office Visit [facility] Health Weight Management Services [address] [place] [address] Anusha Campa, SENIOR ORACLE PL SQL DEVELOPER-PBX REPAIRER [address] [place] [address] Scheduled Procedures Name Priority Associated Diagnoses Date/Ti me ESOPHAGOGASTRODUODENOSCOPY ( EGD) BIOPSY Status post bariatric surgery 04/25/2024 9:44 AM CDT documented as of this encounter Visit Diagnoses Diagnosis Morbid obesity due to excess calories (HCC)- Primary Status post bariatric surgery Bariatric surgery status documented in this encounter Care Teams Steam Boiler Fireman Relationship Specialty Start Date End Date Betty Rodriguez MD [address] [place] [phone] PCP - General Internal Medicine 09/02/22 documented as of this encounter
--- OUTSIDE RECORDS SUMMARY | 2024-02-06 01:12 | XMS_ITS | Encounter Summary ---
Author Organization [facility] Address [address] [place] [address] Care Team Providers Care Clinical Pharmacy Coordinator Name Role Phone Betty Rodriguez MD Primary Care Provider Reason for Visit * Reason Onset Date Comments General 12/28/2022 Encounter Details Date Type Department Care Team (Late st Contact Info) Description 12/28/2022 Telephone [facility] Weight Management Services [address] [place] [address] Eliana Enriquez MD [address] [place] [address] General Social History Tobacco Use Types Packs/Day [...] as of this encounter Miscellaneous Notes * Addendum Note - Emeka Cloud RN - 12/28/2022 9:43 AM CSTAddended by: EMEKA CLOUD on: 12/28/2022 09:43 AM Modules accepted: Orders HT TEST SUPERVISOR * Telephone Encounter - Lainey Hebert CMA - 12/28/2022 9:06 AM CST Surgery Scheduled Called patient and VSG surgery is scheduled for 01/17/23 in [place]. Patient aware of all preop appointments and instructions have been sent to them through [employer]. Pt v/u and will call us with any additional questions. Pt will need Nicotine testing at [facility] diabetic ed HT TEST SUPERVISOR documented in this encounter Plan of Treatment Upcoming Encounters Date Type Department Care Team (Latest Contact Info) Description 04/25/2024 9:44 AM CDT Hospital Encounter [facility] - Dena Op [address] [place] [address] Eliana Enrqiuez MD [address] [place] [phone] Surgery General 04/25/2024 9:44 AM CDT - 04/25/2024 10:10 AM CDT Surgery [facility] - Dena Op [address] [place] [address] Eliana Enriquez MD [address] [place] [phone] ESOPHAGOGASTRODUODENOSCOPY WITH BIOPSY 05/03/2024 9:30 AM CDT Office Visit [facility] Health Weight Management Services [address] [place] [address] Eliana Enriquez MD [address] [place] [address] 07/19/2024 9:00 AM CDT Office Visit [facility] Health Weight Management Services [address] [place] [address] Anusha Campa, COMPATIBILITY TEST ENGINEER-RADIOLOGY ADMINISTRATOR [address] [place] [address] 01/18/2025 9:00 AM FLIGHT TEST SUPERVISOR Clinical Support [facility] Health Weight Management Services [address] [place] [address] 01/18/2025 9:30 AM FLIGHT TEST SUPERVISOR Office Visit [facility] Health Weight Management Services [address] [place] [address] Anusha Campa, COMPATIBILITY TEST ENGINEER-RADIOLOGY ADMINISTRATOR [address] [place] [address] Scheduled Orders Name Type Priority Associated Diagnoses Orde r Schedule NICOTINE + METABOLITES BLOOD Lab Routine Pre-op testing Ordered: 12/28/2022 Scheduled Procedures Name Priority Associated Diagnoses Date/Ti me ESOPHAGOGASTRODUODENOSCOPY ( EGD) BIOPSY Status post bariatric surgery 04/25/2024 9:44 AM CDT documented as of this encounter Visit Diagnoses Diagnosis Pre-op testing- Primary Preoperative examination, unspecified Status post bariatric surgery Bariatric surgery status documented in this encounter Care Teams Clinical Pharmacy Coordinator Relationship Specialty Start Date End Date Betty Rodriguez MD [address] [place] [address] PCP - General Internal Medicine 09/02/22 documented as of this encounter
--- OUTSIDE RECORDS SUMMARY | 2024-02-06 01:13 | XMS_ITS | Encounter Summary ---
Author Organization [facility] Address [address] [facility] [place] [address] Care Team Providers Care Equipment Validation Engineer Name Role Phone Betty Rodriguez MD Primary Care Provider Encounter Details Date Type Department Care Team (Late st Contact Info) Description 09/13/2022 Orders Only [facility] Weight Management Services [address] [place] [address] Anusha Campa, BOBBIN COIL WINDER-AUTO AIR CONDITIONING MECHANIC [address] [place], [place] [phone] Morbid obesity (HCC); Preop examination Social History Tobacco Use Types Packs/Day Years Used Date Smoking Tobacco: Never Smokeless Tobacco: Never Alcohol Use Standard Drinks/Week Comments Yes 0 (1 standard drink = 0.6 oz pur e alcohol) 2-3 drinks Sex and Gender Information Value Date Recorded Sex Assigned at Not on file Gender Identity Not on file Sexual Orientation Not on file documented as of this encounter Plan of Treatment Upcoming Encounters Date Type Department Care Team (Latest Contact Info) Description 04/25/2024 9:44 AM CDT Hospital Encounter [facility] - Dena Op [address] [place], [place] [address] Eliana Enriquez MD [address] [place] [address] Surgery General 04/25/2024 9:44 AM CDT - 04/25/2024 10:10 AM CDT Surgery [facility] - Dena Op [address] [place] [address] Eliana Enriquez MD [address] [place] [phone] ESOPHAGOGASTRODUODENOSCOPY WITH BIOPSY 05/03/2024 9:30 AM CDT Office Visit [facility] Health Weight Management Services [address] [place] [address] Elaina Enriquez MD [address] [place] [address] 07/19/2024 9:00 AM CDT Office Visit [facility] Health Weight Management Services [address] [place] [address] Anusha Campa, BOBBIN COIL WINDER-AUTO AIR CONDITIONING MECHANIC [address] [place] [address] 01/18/2025 9:00 AM REAL ESTATE LEGAL ASSISTANT Clinical Support [facility] Health Weight Management Services [address] [place] [address] 01/18/2025 9:30 AM REAL ESTATE LEGAL ASSISTANT Office Visit [facility] Health Weight Management Services [address] [place] [address] Anusha Campa, BOBBIN COIL WINDER-AUTO AIR CONDITIONING MECHANIC [address] [place] [address] Scheduled Procedures Name Priority Associated Diagnoses Date/Ti me ESOPHAGOGASTRODUODENOSCOPY ( EGD) BIOPSY Status post bariatric surgery 04/25/2024 9:44 AM CDT documented as of this encounter Procedures Procedure Name Priority Date/Time Associated Diagnosis Comments PTH INTACT+CALCIUM Routine 09/07/2022 Morbid obesity (HCC) Preop examination VITAMIN B1 Routine 09/07/2022 Morbid obesity (HCC) Preop examination documented in this encounter Results * VITAMIN B1 (09/07/2022) Blood BLOOD SPECIMEN / Unknown 09/07/2022 Aunsha Campa APRN-AUTO AIR CONDITIONING MECHANIC LAB - CHEMISTRY ORDERABLES OTHER LAB * PTH INTACT+CALCIUM (09/07/2022) Blood BLOOD SPECIMEN / Unknown 09/07/2022 Anusha Campa APRN-AUTO AIR CONDITIONING MECHANIC LAB - CHEMISTRY ORDERABLES OTHER LAB documented in this encounter Visit Diagnoses Diagnosis Morbid obesity (HCC) Morbid obesity Preop examination Preoperative examination, unspecified Status post bariatric surgery Bariatric surgery status documented in this encounter Care Teams Equipment Validation Engineer Relationship Specialty Start Date End Date Betty Rodriguez MD [address] [place] [phone] PCP - General Internal Medicine 09/02/22 documented as of this encounter
--- OUTSIDE RECORDS SUMMARY | 2024-02-06 01:13 | XMS_ITS | Encounter Summary ---
Author Organization [facility] Address [address] [address] Care Team Providers Care Metal Annealer Name Role Phone Betty Rodriguez MD Primary Care Provider [phone] Encounter Details Date Type Department Care Team (Late st Contact Info) Description 09/08/2022 Orders Only [facility] Weight Management Services [address] [place] [address] Anusha Campa, NEWS REPORTER-CLINICAL TRIAL EDUCATOR [address], [place] [address] Morbid obesity (HCC); Preop examination Social History [...] [facility] - [address] [place], [place] [address] Eliana Enriquez MD [address] [place] [address] Surgery General 04/25/2024 9:44 AM CDT - 04/25/2024 10:10 AM CDT Surgery [facility] - [address]ena Op [address] [place] [address] Eliana Enriquez MD [address] [place] [address] ESOPHAGOGASTRODUODENOSCOPY WITH BIOPSY 05/03/2024 9:30 AM CDT Office Visit [facility] Health Weight Management Services [address] [place] [address] Eliana Enriquez MD [address] [place] [address] 07/19/2024 9:00 AM CDT Office Visit [facility] Health Weight Management Services [address] [place] [address] Anusha Campa, NEWS REPORTER-CLINICAL TRIAL EDUCATOR [address] [place] [address] 01/18/2025 9:00 AM BODY FINISHER Clinical Support [facility] Health Weight Management Services [address] [place] [address] 01/18/2025 9:30 AM BODY FINISHER Office Visit [facility] Health Weight Management Services [address] [place] [address] Anusha Campa, NEWS REPORTER-CLINICAL TRIAL EDUCATOR [address] [place] [address] Scheduled Procedures Name Priority Associated Diagnoses Date/Ti me ESOPHAGOGASTRODUODENOSCOPY ( EGD) BIOPSY Status post bariatric surgery 04/25/2024 9:44 AM CDT documented as of this encounter Procedures Procedure Name Priority Date/Time Associated Diagnosis Comments COMPREHENSIVE METABOLIC PANEL Routine 09/07/2022 Morbid obesity (HCC) Preop examination MAGNESIUM BLOOD Routine 09/07/2022 Morbid obesity (HCC) Preop examination VITAMIN B12 FOLATE PANEL Routine 09/07/2022 Morbid obesity (HCC) Preop examination TSH Routine 09/07/2022 Morbid obesity (HCC) Preop examination IRON + TRANSFERRIN PANEL Routine 09/07/2022 Morbid obesity (HCC) Preop examination FERRITIN Routine 09/07/2022 Morbid obesity (HCC) Preop examination LIPID PROFILE Routine 09/07/2022 Morbid obesity (HCC) Preop examination documented in this encounter Results * MAGNESIUM BLOOD (09/07/2022) Blood BLOOD SPECIMEN / Unknown 09/07/2022 Anusha Campa APRN-CLINICAL TRIAL EDUCATOR LAB - CHEMISTRY ORDERABLES Performing Organization Address [facility] Co de Phone Number OTHER LAB * FERRITIN (09/07/2022) Blood BLOOD SPECIMEN / Unknown 09/07/2022 Anusha Campa APRN-CLINICAL TRIAL EDUCATOR LAB - CHEMISTRY ORDERABLES Performing Organization Address [facility] Co de Phone Number OTHER LAB * COMPREHENSIVE METABOLIC PANEL (09/07/2022) Blood BLOOD SPECIMEN / Unknown 09/07/2022 Anusha Campa APRN-CLINICAL TRIAL EDUCATOR LAB - CHEMISTRY ORDERABLES OTHER LAB * TSH (09/07/2022) Blood BLOOD SPECIMEN / Unknown 09/07/2022 Anusha Campa APRN-CLINICAL TRIAL EDUCATOR LAB - CHEMISTRY ORDERABLES Performing Organization Address [facility]/ZIP Co de Phone Number OTHER LAB * VITAMIN B12 FOLATE PANEL (09/07/2022) Blood BLOOD SPECIMEN / Unknown 09/07/2022 Anusha Campa NEWS REPORTER-CLINICAL TRIAL EDUCATOR LAB - CHEMISTRY ORDERABLES Performing Organization Address City/[facility]/ZIP Co de Phone Number OTHER LAB * LIPID PROFILE (09/07/2022) Blood BLOOD SPECIMEN / Unknown 09/07/2022 Anusha Campa NEWS REPORTER-CLINICAL TRIAL EDUCATOR LAB - CHEMISTRY ORDERABLES Performing Organization Address [facility] Co de Phone Number OTHER LAB * IRON + TRANSFERRIN PANEL (09/07/2022) Blood BLOOD SPECIMEN / Unknown 09/07/2022 Anusha Campa MOHINI-CLINICAL TRIAL EDUCATOR LAB - CHEMISTRY ORDERABLES Performing Organization Address [facility] Co de Phone Number OTHER LAB documented in this encounter Visit Diagnoses Diagnosis Morbid obesity (HCC) Morbid obesity Preop examination Preoperative examination, unspecified Status post bariatric surgery Bariatric surgery status documented in this encounter Care Teams Metal Annealer Relationship Specialty Start Date End Date Betty Rodriguez MD [address] [place] [phone] PCP - General Internal Medicine 09/02/22 documented as of this encounter
--- OUTSIDE RECORDS SUMMARY | 2024-02-06 01:13 | XMS_ITS | Encounter Summary ---
Author Organization [facility] Address [address] [place] [address] Care Team Providers Care Speech Professor Name Role Phone Betty Rodriguez MD Primary Care Provider [phone] Encounter Details Date Type Department Care Team (Late st Contact Info) Description 10/28/2022 Orders Only [facility] Weight Management Services [address] [place] [address] Anusha Campa, BONUS CLERK-SUPERVISOR COLOR PASTE MIXING [address] [place], [place] [address] Morbid obesity (HCC); Preop examination Social History [...] [facility] - [address] [place], [place] [address] Eliana Enriquez MD [address] [place] [address] Surgery General 04/25/2024 9:44 AM CDT - 04/25/2024 10:10 AM CDT Surgery [facility] - [address]ena Op [address] [place] [address] Eliana Enriquez MD [address] [place] [address] ESOPHAGOGASTRODUODENOSCOPY WITH BIOPSY 05/03/2024 9:30 AM CDT Office Visit [facility] Health Weight Management Services [address] [place] [address] Eliana Enriquez MD [address] [place] [address] 07/19/2024 9:00 AM CDT Office Visit [facility] Weight Management Services [address] [place] [address] Anusha Campa, BONUS CLERK-SUPERVISOR COLOR PASTE MIXING [address], [place] [address] 01/18/2025 9:00 AM SALES AND SERVICE ENGINEER Clinical Support [facility] Health Weight Management Services [address] [place] [address] 01/18/2025 9:30 AM SALES AND SERVICE ENGINEER Office Visit [facility] Health Weight Management Services [address] [place] [address] Anusha Campa, BONUS CLERK-SUPERVISOR COLOR PASTE MIXING [address] [place] [address] Scheduled Procedures Name Priority Associated Diagnoses Date/Ti me ESOPHAGOGASTRODUODENOSCOPY ( EGD) BIOPSY Status post bariatric surgery 04/25/2024 9:44 AM CDT documented as of this encounter Visit Diagnoses Diagnosis Morbid obesity (HCC) Morbid obesity Preop examination Preoperative examination, unspecified Status post bariatric surgery Bariatric surgery status documented in this encounter Care Teams Speech Professor Relationship Specialty Start Date End Date Betty Rodriguez MD [address] [place] [phone] PCP - General Internal Medicine 09/02/22 documented as of this encounter
--- OUTSIDE RECORDS SUMMARY | 2024-02-06 01:13 | XMS_ITS | Encounter Summary ---
Author Organization [facility] Address [address] [place] [address] Care Team Providers Care Accounts Receivable Coordinator Name Role Phone Betty Rodriguez MD Primary Care Provider [phone] Encounter Details Date Type Department Care Team (Late st Contact Info) Description 10/21/2022 Orders Only [facility] Weight Management Services [address] [place] [phone] Anusha Campa APRN-SHOT COAT TENDER [address] [place] [address] Elevated hemoglobin (HCC) Social History Tobacco Use Types Packs/Day Years Used Date Smoking Tobacco: Never Smokeless Tobacco: Never Alcohol Use Standard Drinks/Week Comments Yes 0 (1 standard drink = 0.6 oz pur e alcohol) 2-3 drinks Sex and Gender Information Value Date Recorded Sex Assigned at Not on file Gender Identity Not on file Sexual Orientation Not on file documented as of this encounter Progress Notes * Angela Luque LPN - 10/21/2022 2:40 PM CDT Patient informed of CBC order and will have completed prior to visit on 11/08/22. * Anusha Campa APRN-CNP - 10/21/2022 1:50 PM CDT CBC results completed 09/07/[address] Enriquez due to hemoglobin of 19.8. Recommendations received to repeat CBC in 1 month. Will mail paper order to patient. Recommendations received torefer to hematology if repeat hemoglobin remains greater than 18 documented in this encounter Plan of Treatment Upcoming Encounters Date Type Department Care Team (Latest Contact Info) Description 04/25/2024 9:44 AM CDT Hospital Encounter [facility] - [address] [place] [address] Eliana Enriquez MD [address] [place] [address] Surgery General 04/25/2024 9:44 AM CDT - 04/25/2024 10:10 AM CDT Surgery [facility] - [address] [place] [address] Eliana Enriquez MD [address] [place] [address] ESOPHAGOGASTRODUODENOSCOPY WITH BIOPSY 05/03/2024 9:30 AM CDT Office Visit [facility] Weight Management Services [address] [place] [address] Eliana Enriquez MD [address] [place] [address] 07/19/2024 9:00 AM CDT Office Visit [facility] Weight Management Services [address] [place] [address] Anusha Campa APRN-CNP [address] [place] [address] 01/18/2025 9:00 AM DX BOARD OPERATOR Clinical Support [facility] Health Weight Management Services [address] [place] [address] 01/18/2025 9:30 AM DX BOARD OPERATOR Office Visit [facility] Health Weight Management Services [address] [place] [address] Anusha Campa APRN-AMADOU [address] [place] [address] Scheduled Procedures Name Priority Associated Diagnoses Date/Ti me ESOPHAGOGASTRODUODENOSCOPY ( EGD) BIOPSY Status post bariatric surgery 04/25/2024 9:44 AM CDT documented as of this encounter Results * CBC WITH DIFFERENTIAL (09/07/2022) Blood BLOOD SPECIMEN / Unknown 09/07/2022 Anusha OVIEDO LAB - HEMATOLOGY ORDERABLES OTHER LAB documented in this encounter Visit Diagnoses Diagnosis Elevated hemoglobin (HCC)- Primary Other hemoglobinopathies Status post bariatric surgery Bariatric surgery status documented in this encounter Care Teams Accounts Receivable Coordinator Relationship Specialty Start Date End Date Betty Rodriguez MD [address] [place] [address] PCP - General Internal Medicine 09/02/22 documented as of this encounter
--- OUTSIDE RECORDS SUMMARY | 2024-02-06 01:13 | XMS_ITS | Encounter Summary ---
Author Organization [facility] Address [address] [place] [address] Care Team Providers Care Tooler Name Role Phone Betty Rodriguez MD Primary Care Provider Reason for Visit * Reason Onset Date Comments Referral 09/08/2022 Encounter Details Date Type Department Care Team (Late st Contact Info) Description 09/08/2022 Telephone [facility] Weight Management Services [address] [place] [address] Eliana Enriquez MD [address] [place] [address] Referral Social History Tobacco Use Types Packs/Day Years Used Date Smoking Tobacco: Never Smokeless Tobacco: Never Alcohol Use Standard Drinks/Week Comments Yes 0 (1 standard drink = 0.6 oz pur e alcohol) 2-3 drinks Sex and Gender Information Value Date Recorded Sex Assigned at Not on file Gender Identity Not on file Sexual Orientation Not on file documented as of this encounter Miscellaneous Notes * Telephone Encounter - Katia Cloud RN - 09/08/2022 9:38 AM CDT Informed pt of need for cardiac clearance prior to bariatric surgery. Pt states he would like to see someone close to where he lives at either [place] or [place]. Contacted Dr. Oseas Rick's office with [facility] and will fax referral to them and theywill contact pt for appt. Fax #: [phone] Pt informed and v/u. documented in this encounter Plan of Treatment Upcoming Encounters Date Type Department Care Team (Latest Contact Info) Description 04/25/2024 9:44 AM CDT Hospital Encounter [facility] - [address] [place] [address] Eliana Enriquez MD [address] [place] [address] Surgery General 04/25/2024 9:44 AM CDT - 04/25/2024 10:10 AM CDT Surgery [facility] - [address] [place] [address] Eliana Enriquez MD [address] [place] [address] ESOPHAGOGASTRODUODENOSCOPY WITH BIOPSY 05/03/2024 9:30 AM CDT Office Visit [facility] Weight Management Services [address] [place] [address] Eliana Enriquez MD [address] [place] [address] 07/19/2024 9:00 AM CDT Office Visit [facility] Health Weight Management Services [address] [place] [address] Anusha Campa, HEALTH INFORMATION TECHNICIAN-CHIEF DEPUTY COURT CLERK [address] [place] [address] 01/18/2025 9:00 AM HIDE AND SKIN COLERER Clinical Support [facility] Health Weight Management Services [address] [place] [address] 01/18/2025 9:30 AM HIDE AND SKIN COLERER Office Visit [facility] Health Weight Management Services [address] [place] [address] Anusha Campa, HEALTH INFORMATION TECHNICIAN-CHIEF DEPUTY COURT CLERK [address] [place] [address] Scheduled Procedures Name Priority Associated Diagnoses Date/Ti me ESOPHAGOGASTRODUODENOSCOPY ( EGD) BIOPSY Status post bariatric surgery 04/25/2024 9:44 AM CDT documented as of this encounter Visit Diagnoses Diagnosis Preop examination- Primary Preoperative examination, unspecified Status post bariatric surgery Bariatric surgery status documented in this encounter Care Teams Tooler Relationship Specialty Start Date End Date Betty Rdoriguez MD [address] [place] [address] PCP - General Internal Medicine 09/02/22 documented as of this encounter
--- OUTSIDE RECORDS SUMMARY | 2024-02-06 01:13 | XMS_ITS | Encounter Summary ---
Author Organization [facility] Address [address] [place] [address] Care Team Providers Care Ignition Mechanic Name Role Phone Betty Rodriguez MD Primary Care Provider [phone] Reason for Visit * Auth/Cert (Routine) Specialty Diagnoses / Procedures Referred By Arnold t Referred To Contact Diagnoses Gastroesophageal reflux disease, unspecified whether esophagitis present Screen for colon cancer Gastroesophageal reflux disease, unspecified whether esophagitis present [K21.9] Screen for colon cancer [Z12.11] Procedures [facility] ED EGD FLEX TRANSORAL DX UT COLONOSCOPY,DIAGNOSTIC ESOPHAGOGASTRODUODENOSCOPY (EGD) DIAGNOSTIC COLONOSCOPY SCREEN Referral ID Status Reason Start Date Expiration Date Visits Re quested Visits Authorized [id number] 1 1 Encounter Details Date Type Department Care Team (Latest Contact Info) Description 11/12/2022 11:09 AM CDT - 11/12/2022 12:31 PM CDT Surgery [facility] [address] [place] [address] Eliana Enriquez MD [address] [place] [phone] ESOPHAGOGASTRODUODENOSCOPY with biopsy Surgery Details Date/Time Status Location OR Service Patient Class Case Class Case Type Trauma Case? 11/12/2022 11:09 AM Posted [facility] MAIN OR OR 1 Gastroenterology Surgery Day Care Elective > 5 days Panel 1 Procedure LRB Anes Op Region Wound Class Comments ESOPHAGOGASTRODUODENOSCOPY with biopsy N/A MAC E sophagus Clean Contaminated COLONOSCOPY with polypectomy N/A MAC Rectum C lean Contaminated Surgeon Surgeon Role Service Panel Eliana Enriquez MD Primary Gastroenterolog y 1 Special Needs ARRIVAL TIME:929 MOVED FROM 01/21 - 11/12 documented in this encounter Social History Tobacco [...] Sign Reading Time Taken Comments Blood Pressure 132/83 11/12/2022 12:30 PM CDT Pulse 71 11/12/2022 12:30 PM CDT Temperature 36.6 ??C (97.8 ??F) 11/12/2022 11:46 AM C DT Respiratory Rate 18 11/12/2022 12:00 PM CDT Oxygen Saturation 95% 11/12/2022 12:30 PM CDT Inhaled Oxygen Concentration - - Weight 150 kg (330 lb 11 oz) 11/12/2022 9:44 AM CDT Height 182.9 cm (6') 11/12/2022 9:44 AM CDT Body Mass Index 44.85 11/12/2022 9:44 AM CDT documented in this encounter Functional [...] (one) tablet by mouth at bedtime 01/12/2023 lisinopril-hydroCHLOR Othiazide (Prinzide; Zestoretic) 10-12.5 MG tablet Take 1 (one) tablet by mouth once daily 01/10/2023 Multiple Vitamins-Minerals (Centrum Silver) TABS Take 1 (one) tablet by mouth daily with food 02/18/2023 omeprazole (PriLOSEC) 40 MG capsule Take 1 (one) capsule by mouth 2 times daily, before breakfast and supper 60 capsule 3 11/12/2022 01/10/2023 sucralfate (Carafate) 1 GM tablet Take 1 (one) tablet by mouth 4 times daily - before meals & nightly Crush tablet in small amount of liquid prior to taking 120 tablet 2 11/12/2022 12/13/2022 vitamin D, ergocalciferol, (Drisdol) 1.25 MG (02884 UT) capsuleIndications:Vi tamin D Deficiency Take 1 (one) capsule by mouth every 7 days Reasons: Vitamin D Deficiency 4 capsule 3 09/15/2022 01/18/2023 documented as of this encounter H&P Notes * Eliana Enriquez MD - 11/12/2022 9:52 AM CDT Admit Date: 11/12/22 This patient? s prior H&P was reviewed, the patient was examined and no change has occurred in the patient's condition since the prior H&P was completed. Eliana Enriquez MD Source Note - Shanel Ware APRN-AMADOU - 11/08/2022 1:44 PM CDT [facility] [place] [address] . . Date of encounter: No admission date for patient encounter. Provider: Shanel Ware [place] MAR[employer]-ELECTROENCEPHALOGRAM TECHNOLOGIST Patient: Jayesh Anderson CSN: [id number] Specialty: Bariatric Surgery Date of : 1955 Visit type: Bariatrics Pre-operative follow up Jayesh Anderson 67 year old male was referred by Betty Rodriguez MD for Bariatrics pre-op follow up. Bariatric Preop HPI he was seen in clinic last on 10/13/22. The procedure requested is Sleeve Gastrectomy. Patient is attending support group meeting. The patient has been participating in an online supportgroup. No of support group meeting attended 05/17 Patient is taking 30 grams of proteins supplements daily. Patient is taking 64 oz of fluid per day. Reviewed 24 hour food recall with pt. Opportunities for improvement note: He has good food choices and proper portion sizes. Doing 20 minutes of exercise daily. Encouraged [...] Total Wt Loss in lb: 26.5 lb Obesity History Years of being overweight? 40yrs Age of first weight loss attempt? 18 Highest weight as an adult? 320 Goal Weight? 200 Past Medical History: Diagnosis Date ??? HTN (hypertension) Past Surgical History: Procedure Laterality Date ??? Lumbar Diskectomy ??? Meniscectomy Bilateral Social [...] Outpatient Medications Marked as Taking for the 11/08/22 encounter (Office Visit) with Shanel Ware APRN-CNP Medication Sig ??? atorvastatin (Lipitor) 40 MG tablet Take 1 (one) tablet by mouth at bedtime ??? lisinopril-hydroCHLOROthiazide (Prinzide; Zestoretic) 10-12.5 MG tablet Take 1 (one) tablet by mouth once daily ??? Multiple Vitamins-Minerals (Centrum Silver) TABS Take 1 (one) tablet by mouth daily with food ??? vitamin D, ergocalciferol, (Drisdol) 1.25 MG (13557 UT) capsule Take 1 (one) capsule by mouth every 7 days Reasons: Vitamin D Deficiency (Not in a hospital admission) No Known Allergies Objective: Vital Signs: BP 138/78 Pulse 99 Temp 97.3 ??F (36.3 ??C) (Temporal) Resp 16 Ht 1.829 m (6') Wt (!) 155.3 kg (342 lb 4.8 oz) SpO2 97% Weight: (!) 155.3 kg (342 lb 4.8 oz) Height: 182.9 cm (6') Body mass index is 46.42 kg/m??. Physical Exam: Constitutional: Alert, awake and [...] No palpable visceromegaly. No palpableventral hernias. Skin: [place] and moist. No ulcers, rashes, or lesions. Extremities: Well perfused. No gross joint deformity noted Neurological: Cranial nerves 2-12 were grossly intact. Psychiatric: The patient's mood and affect appeared to be appropriate Labs No results for input(s): WBC, RBC, HGB, HCT, PLTCOUNT in the last 15054 hours. No results for input(s): SODIUM, POTASSIUM, CO2, BUN, CREATININE in the last 16257 hours. Invalid input(s): CLORIDE No results for input(s): GLUCOSE in the last 99351 hours. No results for input(s): AST, ALT in the last 57365 hours. No results for input(s): LDL, HDL, TRIG, TSH in the last 36096 hours. No results for input(s): HGBA1C in the last 80188 hours. No results for input(s): PT, PTT, INR, TSH in the last 93138 hours. No results for input(s): TSH in the last 61574 hours. No results for input(s): IRON in the last 08857 hours. No results for input(s): SOCUFEWS99 in the last 46659 hours. No results for input(s): VITAMINA in the last 79011 hours. No results for input(s): IRON in the last 99690 hours. No results for input(s): VITK1 in the last 95963 hours. No results for input(s): [id number] in the last 77594 hours. No results for input(s): ALPHATOCOPH in the last 74987 hours. No results for input(s): GAMMATOCOPH in the last 83447 hours. No results for input(s): MAGMGDL in the last 31610 hours. No results for input(s): PHOS in the last 63545 hours. Some lab results will be in [...] NExT program / an exercise log. ?? Hypertension?? Patient currently taking lisinopril/ hydrochlorothiazide for this.?? His 138/78 today. Advised patient to monitor blood pressure daily follow-up with primary care provider if blood pressure remains 140/90 or greater. ??Continue with the anti-hypertensive medication. Primary to optimize [...] 40 mg for this .Continue medications as prescribed. ??Lipid profile normal on initial testing. ?? Colon cancer screening Patient reports he underwent colonoscopy approximately 5 years ago at [facility]. He reportshe is due for repeat colonoscopy.??He denies family history of colon cancer. ?? He is scheduled here 11/12/22. ?? Abnormal Thyroid On initial lab testing TSH was abnormal 4.05. He will follow up with PCP. ?? Vitamin D deficiency He had low vitamin D on initial testing. He is taking supplementation per protocol. Plan to recheckvitamin D 01/06. ?? Umbilical hernia I discussed with the patient his incarcerated umbilical hernia. ??He is interested in weight loss surgery. ??Will proceed with weight loss surgery 1st and then umbilical hernia repair if he becomes symptomatic in the future. ?? VTE risk VTE risk assessment completed per [place] [facility] assessment tool (ACSIAN). Patient is noted to be of low risk for post-operative VTE event with a score of 14. Plan for standard DVT prophylaxis following procedure. Elevated hemoglobin He was noted to have elevated hemoglobin on initial lab testing 09/07/22. Repeat CBC 1 month. If hemoglobin is repeated and it remains greater than 18, Dr. Enriquez wants him referred to hematology. Repeat hemoglobin 10/26/22 was 17.2. ?? Consults and Test ordered:?? Cardiac consult ??for risk assessment and optimization before surgery: Dr. Oseas Rick cleared 11/03/22 Dietitian consult for diet counseling: Cleared 10/13/22 Psychology/psychiatry consult for pre-operative clearance. Cleared 10/13/22. Blood work to evaluate for any vitamin and mineral deficiency. Completed 09/07/22 and discussed withpt today. VTE Risk Assessment: Completed and scanned into media. EKG: Completed 09/08/22 (abnormal) Chest Xray. Completed 09/07/22 EGD/Colonoscopy: He is scheduled here 11/12/22 ?? Follow up:??Will see me/PA/STUDIO MUSICIAN in 1 month. He verbalized understanding and is agreeable to this plan after shared decision making with patient. Shanel Ware APRN-ELECTROENCEPHALOGRAM TECHNOLOGIST CC: Betty Rodriguez MD documented in this encounter OR Notes * Operative - Eliana Enriquez MD - 11/12/2022 11:09 AM CDT Esophagogastroduodenoscopy and Colonoscopy Procedure Note Jayesh Anderson [id number] 1955 67 year old Date Of Surgery: 11/12/2022 Surgeon(s) and Role: * Eliana Enriquez MD - Primary Hand Cutter Apprentice: Nayana Anderson, RN Scrub Person: Shaista Sanchez RN Procedure: 1. Esophagogastroduodenoscopy 2. Antral biopsy 3. Colonoscopy 4. Polypectomy, 3 mm ascending colon polyp with snare 5. Polypectomy, 3 mm sigmoid colon polyp with cold forceps x4 6. Polypectomy, 4 mm sigmoid colon polyp with cold forceps 7. Polypectomy, 2 mm sigmoid colon polyp with cold forceps x2 Pre-operative Diagnosis: Pre-Op Diagnosis Codes: * Gastroesophageal reflux disease, unspecified whether esophagitis present [K21.9] * Screen for colon cancer [Z12.11] Post-operative Diagnosis: Post-Op Diagnosis Codes: * Gastroesophageal reflux disease, unspecified whether esophagitis present [K21.9] * Screen for colon cancer [Z12.11] Sedation: Monitored Anesthesia Care Informed Consent: Informed consent was obtained for the procedure. Risks including perforation, hemorrhage, injury to the bowel, and missing lesions were discussed with the patient. . Procedure Details The gastroscope was advanced without difficulty through the esophagus and into the stomach. Air wasinsufflated. The scope was then advanced on to the second portion of the duodenum. A careful inspection was made as the gastroscope was withdrawn. The patient was noted to have normal duodenum. The scope was withdrawn noting 2 antral ulcers, largest 2 mm. Antral biopsy taken here to rule out H pylori. The scope was then retroflexed noting no evidence of hiatal hernia. The scope was then withdrawnnoting normal Z-line. The stomach was then desufflated and the scope withdrawn noting normal proximal esophagus. A digital rectal exam then performed and unremarkable. The colonoscope was advanced into the cecum, which was identified by the ileocecal valve and appendiceal orifice. The quality of the colonic preparation was good A careful inspection was made as the colonoscope was withdrawn. Several benign- appearing colon polyps removed as above. The patient was noted to have sigmoid colon diverticulosis. The scope was then withdrawn into the rectum. A retroflexed view obtained. The rectum was then suctioned and the scope w ithdrawn. The patient was taken to the recovery area in stable condition. Photodocumentation was obtained. Findings: - normal duodenum -2 antral ulcers seen, largest 2 mm -no hiatal hernia -normal Z-line -normal esophagus -several benign-appearing colon polyps removed -sigmoid colon diverticulosis Specimen: ID Type Source Tests Collected by Time Destination A : Antrum biopsy R/O H Pylori Pathology/Cytology Antrum Biopsy GROSS + MICRO EXAM (ILL) Eliana Enriquez MD 11/12/2022 1051 B : Ascending colon polyp Pathology/Cytology Polyp Ascending GROSS + MICRO EXAM (ILL) Eliana Enriquez MD 11/12/2022 1111 C : Sigmoid colon polyp x4 Pathology/Cytology Polyp Sigmoid GROSS + MICRO EXAM (ILL) Eliana Enriquez MD 11/12/2022 1125 D : Sigmoid polyp #5 Pathology/Cytology Polyp Sigmoid GROSS + MICRO EXAM (ILL) Eliana Enriquez MD 11/12/2022 1130 E : Sigmoid polyp #6 & #7 Pathology/Cytology Polyp Sigmoid GROSS + MICRO EXAM (ILL) Eliana Enriquez MD 11/12/2022 1134 Complications: None, patient tolerated the procedure well. EBL: minimal Disposition: PACU - hemodynamically stable. Condition: stable Recommendations/Plan: - start Prilosec 40 mg b.i.d. -start Carafate 1 g q.i.d. - Await pathology -avoid NSAIDs, the patient's reports he takes NSAIDs for knee pain -avoid smoking -repeat EGD in 4-6 weeks to demonstrate also resolution prior to bariatric surgery - Follow up colonoscopy in 3 years 11/12/2022 11:44 AM Eliana Enriquez MD documented in this encounter Plan of Treatment Upcoming Encounters Date Type Department Care Team (Latest Contact Info) Description 04/25/2024 9:44 AM CDT Hospital Encounter [facility] [address] [place] [address] Eliana Enriquez MD [address] [place] [address] [phone] Surgery General 04/25/2024 9:44 AM CDT - 04/25/2024 10:10 AM CDT Surgery [facility] [address] [place] [address] Eliana Enriquez MD [address] [place] [address] [phone] ESOPHAGOGASTRODUODENOSCOPY WITH BIOPSY 05/03/2024 9:30 AM CDT Office Visit [facility] Weight Management Services [address] [place] [address] [phone] Eliana Enriquez MD [address] [place] [address] [phone] 07/19/2024 9:00 AM CDT Office Visit [facility] Weight Management Services [facility] [place] [phone] Campa, Anusha R, [place] MAR[place]-ELECTROENCEPHALOGRAM TECHNOLOGIST [address] [place] [address] 01/18/2025 9:00 AM COMMUNITY RELATIONS OFFICER Clinical Support [facility] [address] [place] [phone] 01/18/2025 9:30 AM COMMUNITY RELATIONS OFFICER Office Visit [facility] Services [address] [place] [phone] Anusha Campa, [place] MARSHAL-ELECTROENCEPHALOGRAM TECHNOLOGIST [address] [place] [address] Scheduled Orders Name Type Priority Associated Diagnoses Orde r Schedule EGD GI Routine ONCE for 1 Occ urrences starting 11/12/2022 until 11/12/2022 Scheduled Procedures Name Priority Associated Diagnoses Date/Ti me ESOPHAGOGASTRODUODENOSCOPY ( EGD) BIOPSY Status post bariatric surgery 04/25/2024 9:44 AM CDT documented as of this encounter Procedures Procedure Name Priority Date/Time Associated Diagnosis Comments CARDIAC RHYTHM STRIP ORDER 11/15/2022 2:10 PM CDT GROSS + MICRO EXAM (ILL) Routine 11/12/2022 10:51 AM CDT Gastroesophageal reflux disease, unspecified whether esophagitis present Screen for colon cancer COLONOSCOPY REMOVAL OR ABLATION TUMOR/POLYP/LESION (ANY METHOD) 11/12/2022 10:27 AM CDT Gastroesophageal reflux disease, unspecified whether esophagitis present Screen for colon cancer Special Needs ARRIVAL TIME:929 MOVED FROM 01/21 - 11/12 UT EGD FLEX TRANSORAL W BX SNGL OR MULT 11/12/2022 10:27 AM CDT Gastroesophageal reflux disease, unspecified whether esophagitis present Screen for colon cancer Special Needs ARRIVAL TIME:929 MOVED FROM 01/21 - 11/12 documented in this encounter Results * CARDIAC RHYTHM STRIP ORDER (11/15/2022 2:10 PM CDT) Narrative 11/15/2022 2:10 PM CDT Ordered by an unspecified provider. Scanned Document CARDIAC SERVICES ORD ERABLES * GROSS + MICRO EXAM (ILL) (11/12/2022 10:51 AM CDT) Case Report Surgical Pathology Report ? Case: [id number] ? Authorizing Provider: ??Eliana Enriquez MD ??Collected: ? 11/12/2022 10:51 AM ? Ordering Location: ? [facility] ? Received: ?11/15/2022 09:23 AM ? Pathologist: ? Yury Castellon MD ? Specimens: ?? A) - Antrum Biopsy, Antrum biopsy R/O H Pylori ? B) - Polyp Ascending, Ascending colon polyp ? C) - Polyp Sigmoid, Sigmoid colon polyp x4 ? D) - Polyp Sigmoid, Sigmoid polyp #5 ? E) - Polyp Sigmoid, Sigmoid polyp #6 & #7 ? 11/17/2022 4:11 PM [facility] Final Diagnosis A. Stomach, antrum, biopsy: - Fragments of antral mucosa with focal mild chronic inflammation and intestinal metaplasia (complete type). No dysplasia No acute inflammation. - No Helicobacter pylori organisms identified B. Ascending polyp, polypectomy: - Fragments of sessile serrated polyp/adenoma C. Sigmoid polyp, X 4 , biopsy: - Polypoid colonic mucosa with a mild lamina propria chronic inflammation - See comment D. Sigmoid polyp, #5 , biopsy: - Polypoid colonic mucosa with a mild lamina propria chronic inflammation - See comment E. Sigmoid polyp, # 6 &#7 , biopsy: - Polypoid colonic mucosa with a mild lamina propria chronic inflammation - See comment 11/17/2022 4:11 PM [facility] Microscopic Description and Comment Microscopic examination is performed and substantiates the above diagnosis. COMMENT: The slight increase of chronic inflammatory cells in the lamina propria is non-specific finding. Evidence active colitis or chronic inflammatory bowel disease is not present. No features of hyperplastic polyp or adenoma are seen in the sigmoid biopsy fragments. 11/17/2022 4:11 PM [facility] Clinical History Colorectal cancer screening Endoscopy: Antral ulcer 2 mm. 4 colon polyps Polypectomy, 3 mm ascending colon polyp with snare Polypectomy, 3 mm sigmoid colon polyp with cold forceps x4 Polypectomy, 4 mm sigmoid colon polyp with cold forceps Polypectomy, 2 mm sigmoid colon polyp with cold forceps x2 11/17/2022 4:11 PM [facility] Gross Description The requisition and specimen(s) are identified with the patient's name (Jayesh Anderson), MRN, and . Received in formalin, specimen antrum biopsy R/O H pylori , are 2 [place]dero-pink tissues, 0.5 x 0.3 x 0.2 cm and 0.6 x 0.2 x 0.1 cm. The specimen is submitted in toto in cassette A1. Received in formalin, specimen ? is ascending colon polyp? , are 3 [place]dero-pink tissues, 0.2 x 0.2 x 0.1 cm, 0.2 x 0.2 x 0.1 cm, and 0.3 x 0.2 x 0.1 cm. The specimen is submitted in toto in cassette B1. Received in formalin, specimen ? sigmoid colon polyp x4? , are 4 [place]dero-pink tissues admixed with scant debris, 0.2-0.3 cm in greatest dimension and aggregating 0.6 x 0.3 x 0.2 cm. The specimen is submitted in toto in cassette C1. Received in formalin, specimen ? sigmoid polyp # 5? , are 4 [place]dero-pink tissues, 0.2-0.3 cm in greatest dimension and aggregating 0.4 x 0.4 x 0.2 cm. The specimen is submitted in toto in cassette D1. Received in formalin, specimen ? sigmoid polyp # 6 and # 7? , are 2 cordero-pink tissues, 0.4 x 0.2 x 0.1 cm and 0.5 x 0.2 x 0.1 cm. The specimen is submitted in toto in cassette E1. 11/17/2022 4:11 PM CDT [facility] Pathologist Location at [facility] 11/17/2022 4:11 PM CDT [facility] Disclaimer The performance characteristics of all immunohistochemical and indirect immunofluorescence stains (if any) cited in this report were determined by the Histopathology Laboratory of [facility]. Some of these tests were developed [...] slides and special stains prepared at [facility], [place]. [address] (CLIA# [id number]) unless otherwise specified. This case was interpreted by the [facility] Department of Pathology. When applicable, select reference laboratory testing is performed at the [facility], [address] [place] [id number]. 11/17/2022 4:11 PM CDT [facility] Embedded Images 11/17/2022 4:11 PM CDT [facility] Pathology/Cytology GASTRIC ANTRAL BIOPSY SPECIMEN / Unknown 11/12/2022 10:51 AM CDT 11/15/2022 9:23 AM CDT Comment:Pre-op diagnosis: Gastroesophageal reflux disease, unspecified whether esophagitis present [K21.9] Screen for colon cancer [Z12.11] Miscellaneous samples (specimen) POLYP / Unknown 11/12/2022 11:11 AM CDT 11/15/2022 9:23 AM CDT Comment:Pre-op diagnosis: Gastroesophageal reflux disease, unspecified whether esophagitis present [K21.9] Screen for colon cancer [Z12.11] Miscellaneous samples (specimen) POLYP OF SIGMOID COLON / Unknown 11/12/2022 11:25 AM CDT 11/15/2022 9:23 AM CDT Comment:Pre-op diagnosis: Gastroesophageal reflux disease, unspecified whether esophagitis present [K21.9] Screen for colon cancer [Z12.11] Miscellaneous samples (specimen) POLYP OF SIGMOID COLON / Unknown 11/12/2022 11:30 AM CDT 11/15/2022 9:23 AM CDT Comment:Pre-op diagnosis: Gastroesophageal reflux disease, unspecified whether esophagitis present [K21.9] Screen for colon cancer [Z12.11] Miscellaneous samples (specimen) POLYP OF SIGMOID COLON / Unknown 11/12/2022 11:34 AM CDT 11/15/2022 9:23 AM CDT Comment:Pre-op diagnosis: Gastroesophageal reflux disease, unspecified whether esophagitis present [K21.9] Screen for colon cancer [Z12.11] Eliana Enriquez MD LAB - PATHOLOGY/ CYTOLOGY ORDERABLES [facility] [address] documented in this encounter Visit Diagnoses Diagnosis Gastroesophageal reflux disease, unspecified whether esophagitis present Screen for colon cancer Special screening for malignant neoplasms, colon Gastroesophageal reflux disease, unspecified whether esophagitis present Screen for colon cancer Special screening for malignant neoplasms, colon Status post bariatric surgery Bariatric surgery status documented in this encounter Administered Medications Inactive Administered Medications - up to 3 most recent administrations Medication Order [facility] Action Action Date Dose Rate Site 0.9% NaCl injection 3 mL 3 mL, Intracatheter, PRE-PROCEDURE MULTIPLE, Starting on Tue11/12/22 at 0931, Until Tue11/12/22 at 1349, For Saline Lock flushes if one is inserted for Bronchoscopy/Endoscopy procedure., Pre-procedure (GI) famotidine (Pepcid) injection 20 mg 20 mg, Intravenous, PRE-OP ONCE, 1 dose, On Tue11/12/22 at 0945, Dilute with 0.9% NaCl, D5W solution, or SWI to a volume of 5 to 10 mL and administer over at least 2 minutes., Pre-op $ Given 11/12/2022 9:44 AM CDT 20 mg fentaNYL (PF) (Sublimaze) injection 25 mcg 25 mcg, Intravenous, EVERY 10 MIN PRN, Mild Pain, 4 doses, Starting on Tue11/12/22 at 1217, Until Tue11/12/22 at 1349, Maximum total of 4 doses. If patient [...] PRN, Moderate Pain, 4 doses, Starting on Tue11/12/22 at 1217, Until Tue11/12/22 at 1349, Maximum total of 4 doses. If patient [...] PRN, Severe Pain, 4 doses, Starting on Tue11/12/22 at 1217, Until Tue11/12/22 at 1349, Maximum total of 4 doses If patient [...] the MAR., PACU lactated ringers infusion at 20 mL/hr, Intravenous, PRE-OP CONTINUOUS, Starting on Tue11/12/22 at 0945, Until Tue11/12/22 at 1349, Pre-op $ New Bag/Syringe 11/12/2022 9:43 AM CDT 20 mL/hr naloxone (Narcan) injection 0.04 mg 0.04 mg, Intravenous, POST-OP MULTIPLE, Starting on Tue11/12/22 at 1217, Until Tue11/12/22 at 1349, If respirations are less than 8 per [...] ONCE PRN, Nausea/Vomiting, 1 dose, Starting on Tue11/12/22 at 1217, Until Tue11/12/22 at 1349, First choice, PACU documented in this encounter Active and Recently Administered Medications Times are shown in CDT. Scheduled Medication Order 11/10/2022 11/11/2022 11/12/2022 0.9% NaCl injection 3 mL 3 mL, Intracatheter, PRE-PROCEDURE MULTIPLE, Starting on Tue11/12/22 at 0931, Until Tue11/12/22 at 1349, For Saline Lock flushes if one is inserted for Bronchoscopy/Endoscopy procedure., Pre-procedure (GI) famotidine (Pepcid) injection 20 mg (COMPLETED) 20 mg, Intravenous, PRE-OP ONCE, 1 dose, On Tue11/12/22 at 0945, Dilute with 0.9% NaCl, D5W solution, or SWI to a volume of 5 to 10 mL and administer over at least 2 minutes., Pre-op 0944 ($ Given - Prov ider: Genny Amador RN) naloxone (Narcan) injection 0.04 mg 0.04 mg, Intravenous, POST-OP MULTIPLE, Starting on Tue11/12/22 at 1217, Until Tue11/12/22 at 1349, If respirations are less than 8 per [...] of diluted naloxone., PACU Continuous Medication Order 11/10/2022 11/11/2022 11/12/2022 lactated ringers infusion at 20 mL/hr, Intravenous, PRE-OP CONTINUOUS, Starting on Tue11/12/22 at 0945, Until Tue11/12/22 at 1349, Pre-op 0943 ($ New Bag/Syri nge - Provider: Genny Amdaor RN)1136 (Anesthesia Volume Adjustment - Provider: Chula Santos APRN-DIGITAL MEDIA BUYER) PRN Medication Order 11/10/2022 11/11/2022 11/12/2022 fentaNYL (PF) (Sublimaze) injection 25 mcg 25 mcg, Intravenous, EVERY 10 MIN PRN, Mild Pain, 4 doses, Starting on Tue11/12/22 at 1217, Until Tue11/12/22 at 1349, Maximum total of 4 doses. If patient [...] PRN, Moderate Pain, 4 doses, Starting on Tue11/12/22 at 1217, Until Tue11/12/22 at 1349, Maximum total of 4 doses. If patient [...] PRN, Severe Pain, 4 doses, Starting on Tue11/12/22 at 1217, Until Tue11/12/22 at 1349, Maximum total of 4 doses If patient [...] ONCE PRN, Nausea/Vomiting, 1 dose, Starting on Tue11/12/22 at 1217, Until Tue11/12/22 at 1349, First choice, PACU documented in this encounter Care Teams Ignition Mechanic Relationship Specialty Start Date End Date Betty Rodriguez MD [address] [place] [phone] PCP - General Internal Medicine 09/02/22 documented as of this encounter
--- OUTSIDE RECORDS SUMMARY | 2024-02-06 01:13 | XMS_ITS | Encounter Summary ---
Author Organization [facility] Address [address] [place] [address] Care Team Providers Care Nipple Threader Name Role Phone Unavailable Primary Care Provider Unavailabl e Reason for Visit * Reason Onset Date Comments General 08/26/2022 Encounter Details Date Type Department Care Team (Late st Contact Info) Description 08/26/2022 Telephone [facility] Weight Management Services [address] [place] [address] Eliana Enriquez MD [address] [place] [address] General Social History Tobacco Use Types Packs/Day Years Used Date Smoking Tobacco: Never Assessed Sex and Gender Information Value Date Recorded Sex Assigned at Not on file Gender Identity Not on file Sexual Orientation Not on file documented as of this encounter Miscellaneous Notes * Telephone Encounter - Thai Linares - 08/26/2022 10:08 AM CDT BENEFIT CHECK FOR BARIATRIC SURGERY DATE: 08/26/2022 COMPLETED BY: Thai Linares INSURANCE VERIFIED: [employer] Medicare ID: [id number] GR: N/A Provider: [id number] - OON Facility: [facility] [id number] - OON [facility] [id number] - OON Does patient have OON coverage? Yes, No different OOP or Deductible;15% coinsurance patient responsibility. ICD 10 CODE: E66.01 - MORBID OBESITY 1. Does the patient have benefits for bariatric surgery ([id number], [id number])? IF NO BENEFITS FOR SURGERY, VERIFY IF PATIENT HAS BENEFITS FOR OFFICE VISITS RELATED TO OBESITY. (93431 CPT CODE, DIAGNOSIS CODE E66.01) AND ALSO VERIFY BENEFITS FOR MEDICAL NUTRITION THERAPY BELOW. Patient does have coverage for bariatric surgery. Prior Authorization required either on Availity or by phone [phone] option3. 2. Is the patient required to have surgery at a center of excellence? (ALL other insurance besides [facility]. This might be called [facility] or [facility], etc.) Not Required. 3. Is the patient required to [facility] ([facility] ONLY)? Not Required. 4. (( VERIFY ONLY IF NO COVERAGE FOR SURGERY)) Does the patient have benefits for medical nutrition therapy for (weight loss, obesity, diet counseling)? N/A NAME OF WAITER/WAITRESS DINING CAR: [employer] Do REFERENCE #: [id number] documented in this encounter Plan of Treatment Upcoming Encounters Date Type Department Care Team (Latest Contact Info) Description 04/25/2024 9:44 AM CDT Hospital Encounter [facility] - Dena Op [address] [place], [place] [phone] Eliana Enriquez MD [address] [place] [phone] Surgery General 04/25/2024 9:44 AM CDT - 04/25/2024 10:10 AM CDT Surgery [facility] - Dena Op [address] [place] [address] Eliana Enriquez MD [address] [place] [phone] ESOPHAGOGASTRODUODENOSCOPY WITH BIOPSY 05/03/2024 9:30 AM CDT Office Visit [facility] Management Services [address] [place] [phone] Eliana Enriquez MD [address] [place] [phone] 07/19/2024 9:00 AM CDT Office Visit [facility] [address] [place] [address] Anusha Campa, HISTORY DEPARTMENT CHAIR-MEAT GRADING MACHINE OPERATOR [address] [place] [address] 01/18/2025 9:00 AM CHEMICAL ENGINEERING PROFESSOR Clinical Support [facility] [address] [place] [address] 01/18/2025 9:30 AM CHEMICAL ENGINEERING PROFESSOR Office Visit [facility] Management Services [address] [place] [address] Anusha Campa, HISTORY DEPARTMENT CHAIR-MEAT GRADING MACHINE OPERATOR [address] [place] [address] Scheduled Procedures Name Priority Associated Diagnoses Date/Ti va ESOPHAGOGASTRODUODENOSCOPY ( EGD) BIOPSY Status post bariatric surgery 04/25/2024 9:44 AM CDT documented as of this encounter Visit Diagnoses Not on filedocumented in this encounter
--- OUTSIDE RECORDS SUMMARY | 2024-02-06 01:13 | XMS_ITS | Encounter Summary ---
Author Organization [facility] Address [address] [place] [address] Care Team Providers Care Material Hauler Name Role Phone Betty Rodriguez MD Primary Care Provider [phone] Reason for Visit * Auth/Cert (Routine) Specialty Diagnoses / Procedures Referred By Contac t Referred To Contact Diagnoses Gastroesophageal reflux disease, unspecified whether esophagitis present Screen for colon cancer Gastroesophageal reflux disease, unspecified whether esophagitis present [K21.9] Screen for colon cancer [Z12.11] Procedures SC ED EGD FLEX TRANSORAL DX SC COLONOSCOPY,DIAGNOSTIC ESOPHAGOGASTRODUODENOSCOPY (EGD) DIAGNOSTIC COLONOSCOPY SCREEN Referral ID Status Reason Start Date Expiration Date Visits Re quested Visits Authorized [id number] 1 1 Encounter Details Date Type Department Care Team (Latest Contact Info) Description 11/12/2022 9:11 AM CDT - 11/12/2022 12:49 PM CDT Hospital Encounter [facility] - [address] [place] [address] Eliana Enriquez MD [address] [place] [phone] Surgery General Discharge Disposition: Home or Self [...] 12/13/2022 vitamin D, ergocalciferol, (Drisdol) 1.25 MG (18377 UT) capsuleIndications:Vi tamin D Deficiency Take 1 [...] Source Note - Shanel Ware APRN-CNP - 11/08/2022 1:44 PM CDT [facility] Weight Management Services at [address] [address] . . Date of encounter: No admission date for patient encounter. Provider: PREET Silver Patient: Jayesh Anderson CSN: [id number] Specialty: Bariatric Surgery Date of : 1955 [...] the 11/08/22 encounter (Office Visit) with Shanel Ware, BEET END SUPERVISOR-LATEX DIPPER Medication Sig ??? atorvastatin (Lipitor) 40 MG tablet Take 1 (one) tablet by mouth at bedtime ??? lisinopril-hydroCHLOROthiazide (Prinzide; Zestoretic) 10-12.5 MG tablet Take 1 (one) tablet by mouth once daily ??? Multiple Vitamins-Minerals (Centrum Silver) TABS Take 1 (one) tablet by mouth daily with food ??? vitamin D, ergocalciferol, (Drisdol) 1.25 MG (00888 UT) capsule Take 1 (one) capsule by [...] No palpable visceromegaly. No palpableventral hernias. Skin: [place] and moist. No ulcers, rashes, or lesions. Extremities: Well perfused. No gross joint deformity noted Neurological: Cranial nerves 2-12 were grossly intact. Psychiatric: The patient's mood and affect appeared to be appropriate Labs No results for input(s): WBC, RBC, HGB, HCT, PLTCOUNT in the last 67837 hours. No results for input(s): SODIUM, POTASSIUM, CO2, BUN, CREATININE in the last 15063 hours. Invalid input(s): CLORIDE No results for input(s): GLUCOSE in the last 00707 hours. No results for input(s): AST, ALT in the last 70240 hours. No results for input(s): LDL, HDL, TRIG, TSH in the last 33308 hours. No results for input(s): HGBA1C in the last 77527 hours. No results for input(s): PT, PTT, INR, TSH in the last 04804 hours. No results for input(s): TSH in the last 53712 hours. No results for input(s): IRON in the last 69169 hours. No results for input(s): [id number] in the last 08620 hours. No results for input(s): VITAMINA in the last 41624 hours. No results for input(s): IRON in the last 17467 hours. No results for input(s): VITK1 in the last 32475 hours. No results for input(s): [id number] in the last 14297 hours. No results for input(s): ALPHATOCOPH in the last 27984 hours. No results for input(s): GAMMATOCOPH in the last 00021 hours. No results for input(s): MAGMGDL in the last 05450 hours. No results for input(s): PHOS in the last 48139 hours. Some lab results will be in [...] underwent colonoscopy approximately 5 years ago at [facility]. He reportshe is due for repeat colonoscopy.??He [...] VTE risk VTE risk assessment completed per [place] [facility]ariat[facility] Collaborative assessment tool (Gemmyo). Patient is noted to be of low [...] VTE Risk Assessment: Completed and scanned into [employer] [place]. EKG: Completed 09/08/22 (abnormal) Chest Xray. Completed 09/07/22 EGD/Colonoscopy: He is scheduled here 11/12/22 ?? Follow up:??Will see me/PA/CURING SUPERVISOR in 1 month. He verbalized understanding and is agreeable to this plan after shared decision making with patient. Shanel Ware APRN-LATEX DIPPER CC: Betty Rodriguez MD documented in this encounter OR Notes * Operative - Eliana Enriquez MD - 11/12/2022 11:09 AM CDT Esophagogastroduodenoscopy and Colonoscopy Procedure Note Jayesh Anderson [id number] 1955 67 year old Date Of Surgery: 11/12/2022 Surgeon(s) and Role: * Eliana Enriquez MD - Primary Hotel Dining Room Cashier: Nayana Anderson RN Scrub Person: Shaista Sanchez RN Procedure: [...] Description 04/25/2024 9:44 AM CDT Hospital Encounter [facility] - [address] [place] [address] Eliana Enriquez MD [address] [place] [phone] Surgery General 04/25/2024 9:44 AM CDT - 04/25/2024 10:10 AM CDT Surgery [facility] - [address] [place] [address] Eliana Enriquez MD [address] [place] [phone] ESOPHAGOGASTRODUODENOSCOPY WITH BIOPSY 05/03/2024 9:30 AM CDT Office Visit [facility] Weight Management Services [address] [place] [address] Eliana Enriquez MD [address] [place] [address] 07/19/2024 9:00 AM CDT Office Visit [facility] Weight Management Services [address] [place] [address] Anusha Campa APRN-LATEX DIPPER [address] [place] [address] 01/18/2025 9:00 AM SWATCH CUTTER Clinical Support [facility] Weight Management Services [address] [place] [address] 01/18/2025 9:30 AM SWATCH CUTTER Office Visit [facility] Weight Management Services [address] [place] [address] Anusha Campa, BEET END SUPERVISOR-LATEX DIPPER [address] [place] [address] Scheduled Orders Name Type Priority Associated Diagnoses [...] ARRIVAL TIME:929 MOVED FROM 01/21 - 11/12 SC EGD FLEX TRANSORAL W BX SNGL OR [...] Case Report Surgical Pathology Report ? Case: [id number] ? Authorizing Provider: ??Eliana Enriquez MD ??Collected: [...] #6 & #7 ? 11/17/2022 4:11 PM CDT [facility] Final Diagnosis A. Stomach, antrum, biopsy: [...] inflammation - See comment 11/17/2022 4:11 PM [facility] Microscopic Description and Comment Microscopic examination is performed and substantiates the above diagnosis. COMMENT: The slight increase of chronic inflammatory cells in the lamina propria is non-specific finding. Evidence active colitis or chronic inflammatory bowel disease is not present. No features of hyperplastic polyp or adenoma are seen in the sigmoid biopsy fragments. 11/17/2022 4:11 PM [facility] Clinical History Colorectal cancer screening Endoscopy: Antral ulcer 2 mm. 4 colon polyps Polypectomy, 3 mm ascending colon polyp with snare Polypectomy, 3 mm sigmoid colon polyp with cold forceps x4 Polypectomy, 4 mm sigmoid colon polyp with cold forceps Polypectomy, 2 mm sigmoid colon polyp with cold forceps x2 11/17/2022 4:11 PM [facility] Gross Description The [...] is submitted in toto in cassette E1. AW 11/17/2022 4:11 PM T [facility] Pathologist Location at [facility] 11/17/2022 4:11 PM T [facility] Disclaimer The performance characteristics of all immunohistochemical and indirect immunofluorescence stains (if any) cited in this report were determined by the Histopathology Laboratory of [facility]. Some of these tests were [...] H&E slides and special stains prepared at [facility], [place]. [address] (CLIA# [id number]) unless otherwise specified. This case was interpreted by the [facility] Department of Pathology. When applicable, select reference laboratory testing is performed at the [facility], [address] [place] [address]. 11/17/2022 4:11 PM CDT [facility] Embedded Images 11/17/2022 4:11 PM T [facility] Pathology/Cytology GASTRIC ANTRAL BIOPSY SPECIMEN / [...] - PATHOLOGY/ CYTOLOGY ORDERABLES Performing Organization Address City/State/[facility] de Phone Number [facility] [address] documented in this encounter Visit Diagnoses [...] ($ New Bag/Syri nge - Provider: Genny Amador RN)1136 (Anesthesia Volume Adjustment - Provider: Chula Santos APRN-CASINO ACCOUNTANT) PRN Medication Order 11/10/2022 11/11/2022 11/12/2022 fentaNYL [...] PACU documented in this encounter Care Teams Material Hauler Relationship Specialty Start Date End Date Betty Rodriguez MD [address] [place] [address] PCP - General Internal Medicine 09/02/22 documented as of this encounter
--- OUTSIDE RECORDS SUMMARY | 2024-02-06 01:13 | XMS_ITS | Encounter Summary ---
Author Organization [facility] Address [address] [place] [address] Care Team Providers Care Senior Production Planner Name Role Phone Betty Rodriguez MD Primary Care Provider [phone] Reason for Visit * Reason Comments Obesity Follow Up Encounter Details Date Type Department Care Team (Late st Contact Info) Description 11/08/2022 1:30 PM CDT Office Visit [facility] Weight Management Services [address] [place] [address] Shanel Ware, COO-PSYCHIATRIC TECHNICIAN [address] [place] [address] Morbid obesity (HCC) (Primary Dx); Elevated hemoglobin (HCC); Vitamin D deficiency Social History Tobacco Use [...] Reading Time Taken Comments Blood Pressure 138/78 11/08/2022 1:00 PM CDT Pulse 99 11/08/2022 1:00 PM CDT Temperature 36.3 ??C (97.3 ??F) 11/08/2022 1:00 PM CD T Respiratory Rate 16 11/08/2022 1:00 PM CDT Oxygen Saturation 97% 11/08/2022 1:00 PM CDT Inhaled Oxygen Concentration - - Weight 155.3 kg (342 lb 4.8 oz) 11/08/2022 1:00 PM CDT Height 182.9 cm (6') 11/08/2022 1:00 PM CDT Body Mass Index 46.42 11/08/2022 1:00 PM CDT documented in this encounter Progress Notes * Shanel Ware APRN-CNP - 11/08/2022 1:44 PM CDT [facility] [place] [address] . . Date of encounter: No admission date for patient encounter. Provider: PREET Silver Patient: Jayesh Anderson CSN: [id number] Specialty: Bariatric Surgery Date of : 1955 [...] supportgroup. No of support group meeting attended / Patient is taking 30 grams of proteins [...] 11/08/22 encounter (Office Visit) with Shanel Ware APRN-AMADOU Medication Sig ??? atorvastatin (Lipitor) 40 MG tablet Take 1 (one) tablet by mouth at bedtime ??? lisinopril-hydroCHLOROthiazide (Prinzide; Zestoretic) 10-12.5 MG tablet Take 1 (one) tablet by mouth once daily ??? Multiple Vitamins-Minerals (Centrum Silver) TABS Take 1 (one) tablet by mouth daily with food ??? vitamin D, ergocalciferol, (Drisdol) 1.25 MG (62268 UT) capsule Take 1 (one) capsule by [...] No palpable visceromegaly. No palpableventral hernias. Skin: [place] and moist. No ulcers, rashes, or lesions. Extremities: Well perfused. No gross joint deformity noted Neurological: Cranial nerves 2-12 were grossly intact. Psychiatric: The patient's mood and affect appeared to be appropriate Labs No results for input(s): WBC, RBC, HGB, HCT, PLTCOUNT in the last 28025 hours. No results for input(s): SODIUM, POTASSIUM, CO2, BUN, CREATININE in the last 14916 hours. Invalid input(s): CLORIDE No results for input(s): GLUCOSE in the last 88149 hours. No results for input(s): AST, ALT in the last 75794 hours. No results for input(s): LDL, HDL, TRIG, TSH in the last 66243 hours. No results for input(s): HGBA1C in the last 93093 hours. No results for input(s): PT, PTT, INR, TSH in the last 77731 hours. No results for input(s): TSH in the last 10798 hours. No results for input(s): IRON in the last 65707 hours. No results for input(s): [id number] in the last 84765 hours. No results for input(s): VITAMINA in the last 19261 hours. No results for input(s): IRON in the last 63424 hours. No results for input(s): VITK1 in the last 24449 hours. No results for input(s): [id number] in the last 44196 hours. No results for input(s): ALPHATOCOPH in the last 89484 hours. No results for input(s): GAMMATOCOPH in the last 33756 hours. No results for input(s): MAGMGDL in the last 69196 hours. No results for input(s): PHOS in the last 07212 hours. Some lab results will be in [...] underwent colonoscopy approximately 5 years ago at [facility]. He reportshe is due for repeat colonoscopy.??He [...] per [place] Bariatric [facility] Collaborative assessment tool (UserZoom). Patient is noted to be of low [...] VTE Risk Assessment: Completed and scanned into [employer]. EKG: Completed 09/08/22 (abnormal) Chest Xray. Completed 09/07/22 EGD/Colonoscopy: He is scheduled here 11/12/22 ?? Follow up:??Will see me/PA/TARIFF COMPILING CLERK in 1 month. He verbalized understanding and is agreeable to this plan after shared decision making with patient. Shanel Ware, COO-PSYCHIATRIC TECHNICIAN CC: Betty Rodriguez MD documented in this encounter Plan of Treatment Upcoming Encounters Date Type Department Care Team (Latest Contact Info) Description 04/25/2024 9:44 AM CDT Hospital Encounter [facility] - Dena Op [address] [place], [place] [phone] Eliana Enriquez MD [address] [place] [phone] Surgery General 04/25/2024 9:44 AM CDT - 04/25/2024 10:10 AM CDT Surgery [facility] - Dena Op [address] [place] [address] Eliana Enriquez MD [address] [place] [address] ESOPHAGOGASTRODUODENOSCOPY WITH BIOPSY 05/03/2024 9:30 AM CDT Office Visit [facility] Health Weight Management Services [address] [place] [address] Eliana Enriquez MD [address] [place] [address] 07/19/2024 9:00 AM CDT Office Visit [facility] Weight Management Services [address] [place] [address] Anusha Campa, COO-PSYCHIATRIC TECHNICIAN [address] [place] [address] 01/18/2025 9:00 AM SENIOR EDITOR Clinical Support [facility] Weight Management Services [address] [place] [address] 01/18/2025 9:30 AM SENIOR EDITOR Office Visit [facility] Weight Management Services [address] [place] [address] Anusha Campa, COO-PSYCHIATRIC TECHNICIAN [address] [place] [address] Scheduled Procedures Name Priority Associated Diagnoses Date/Ti nv ESOPHAGOGASTRODUODENOSCOPY ( EGD) BIOPSY Status post bariatric surgery 04/25/2024 9:44 AM CDT documented as of this encounter Visit Diagnoses Diagnosis Morbid obesity (HCC)- Primary Morbid obesity Elevated hemoglobin (HCC) Other hemoglobinopathies Vitamin D deficiency Status post bariatric surgery Bariatric surgery status documented in this encounter Care Teams Senior Production Planner Relationship Specialty Start Date End Date Betty oRdriguez MD [address] [place] [phone] PCP - General Internal Medicine 09/02/22 documented as of this encounter
--- OUTSIDE RECORDS SUMMARY | 2024-02-06 01:13 | XMS_ITS | Encounter Summary ---
Author Organization [facility] Health Address [address] [place] [address] Care Team Providers Care Hot Oiler Name Role Phone Betty Rodriguez MD Primary Care Provider [phone] Encounter Details Date Type Department Care Team (Late st Contact Info) Description 09/02/2022 1:00 PM CDT Office Visit [facility] Weight Management Services [address] [place] [address] Eliana Enriquez MD [address] [place] [address] Morbid obesity due to excess [...] Sign Reading Time Taken Comments Blood Pressure 142/84 09/02/2022 12:00 PM CDT Pulse 104 09/02/2022 12:00 PM CDT Temperature 36.4 ??C (97.5 ??F) 09/02/2022 1 2:00 PM CDT Respiratory Rate 16 09/02/2022 12:0 0 PM CDT Oxygen Saturation 98% 09/02/2022 12: 00 PM CDT Inhaled Oxygen Concentration - - Weight 167.3 kg (368 lb 12.8 oz) 2022 12:00 PM CDT Height 182.9 cm (6') 09/02/2022 12:00 PM CDT Body Mass Index 50.02 09/02/2022 12:00 PM CDT documented in this encounter Progress Notes * Eliana Enriquez MD - 09/05/2022 4:13 PM CDT [facility] Weight Management Services at [address] [address] . . Date of encounter: No admission date for patient encounter. Provider: Eliana Enriquez MD Patient: Jayesh Anderson CSN: [id number] Specialty: Bariatric Surgery Date of : 1955 Visit type: Bariatric Initial visit Jayesh Anderson 67 year old male patient was referred by Betty Rodriguez MD for evaluation for Morbid Obesity and assessment for Bariatric Surgery. History of Present Illness: The patient states the onset of the weight gain began at adolescence. The patient is gaining weightsince then. The weight gain and associated problems are getting worse . Associated symptoms includeknee and back pain. The patient has attempted physician directed and non physician directed weight loss strategies as described in the Diet history below and has failed to achieve durable weight loss. Due to weight gain patient started developing Benign Essential Hypertension, Hyperscholesterolemia,Sleep apnea and Morbid Obesity. On the basis of his refractory morbid obesity and failure to achieve records management clerk weight loss, he was seen at [facility] Weight Management Services at [place], [place]. The procedure requested is Sleeve Gastrectomy. Weight History: Initial Weight:09/02/2022 Weight: (!) 167.3 kg (368 lb 12.8 oz) BMI (Calculated): 50.01 Obesity History Years of being overweight? 40yrs Age of first weight loss attempt? 18 Highest weight as an adult? 320 Goal Weight? 200 [place] body weight: 77.6 kg (171 lb 1.2 oz) Adjusted ideal body weight: 113.5 kg (250 lb 2.7 oz) Diet History: Diet History: diet history not [...] be getting a CPAP Past Medical History: Hypertension Sleep apnea Hyperlipidemia Past Surgical History: Past Surgical History: Procedure Laterality Date ??? Lumbar Diskectomy ??? Meniscectomy Bilateral Family History: Family History Problem Relation Name Age of Onset ??? Cancer Mother ??? Diabetes; unknown type Mother Social History: Social History Socioeconomic History ??? Marital status: Spouse name: Not on file ??? Number of children: Not on file ??? Years of education: Not on file ??? Highest education level: Not on file Occupational History ??? Not on file Tobacco Use ??? Smoking status: Never ??? Smokeless tobacco: Never Vaping Use ??? Vaping Use: Unknown Substance and Sexual Activity ??? Alcohol use: [...] on file Housing Stability: Not on file Medications: Outpatient Medications Marked as Taking for the 09/02/22 encounter (Office Visit) with Eliana Enriquez MD Medication Sig ??? atorvastatin (Lipitor) 40 MG tablet Take 1 (one) tablet by mouth at bedtime ??? lisinopril-hydroCHLOROthiazide (Prinzide; Zestoretic) 10-12.5 MG tablet Take 1 (one) tablet by mouth once daily (Not in a hospital admission) Allergy: No Known Allergies Review of Systems: General ROS: negative Psychological ROS: negative Ophthalmic ROS: negative ENT ROS: negative Allergy and Immunology ROS: negative Hematological and Lymphatic ROS: negative Endocrine ROS: negative Breast ROS: negative Respiratory ROS: negative Cardiovascular ROS: negative Gastrointestinal ROS: positive for - heartburn Genito-Urinary ROS: negative Musculoskeletal ROS: positive for joint pain Neurological ROS: negative Dermatological ROS: negative Vital Signs: BP 142/84 Pulse 104 Temp 97.5 ??F (36.4 ??C) Resp 16 Ht 1.829 m (6') Wt (!) 167.3 kg (368lb 12.8 oz) SpO2 98% Weight: (!) 167.3 kg (368 lb 12.8 oz) Height: 182.9 cm (6') Body mass index is 50.02 kg/m??. Physical Exam: Constitutional: Alert, awake and oriented without any apparent discomfort. Eyes: Anicteric. No subconjunctival hemorrhage. Neck Exam: Supple. Trachea midline. No thyromegaly. No cervical or supraclavicular lymphadenopathy. Respiratory: Lungs were clear to auscultation bilaterally. No rales, rhonchi. Cardiovascular: Regular rate and rhythm. No rub, murmur or gallop Abdomen: Abdomen was obese, soft, non tender, non distended. No palpable visceromegaly. Incarcerated umbilical hernia. Skin: [place] and moist. No ulcers, rashes, or lesions. Extremities: Well perfused. No gross joint deformity noted Neurological: Cranial nerves 2-12 were grossly intact. Psychiatric: The patient's mood and affect appeared to be appropriate Labs No results for input(s): WBC, RBC, HGB, HCT, PLTCOUNT in the last 45061 hours. No results for input(s): SODIUM, POTASSIUM, CO2, BUN, CREATININE in the last 26641 hours. Invalid input(s): CLORIDE No results for input(s): GLUCOSE in the last 37632 hours. No results for input(s): AST, ALT in the last 60560 hours. No results for input(s): LDL, HDL, TRIG, TSH in the last 66934 hours. No results for input(s): HGBA1C in the last 47860 hours. Some lab results will be in paper format so may be scanned in the EMR. Imaging studies No results found. Some Imaging studies results will be in paper format so may be scanned in the EMR. Assessment and Plan Morbid Obesity Patient was recommended to optimize pre op weight loss with liquid protein diet replacement therapy. All different dietary supplements were discussed. Patient was also recommended to optimize exercise and to be engaged in an exercise program. I will refer him to a dietitian for diet counseling and NExT program / an exercise log. Hypertension Patient currently taking lisinopril hydrochlorothiazide for this. Continue with the anti-hypertensive medication. Primary to optimize for now. Patient was recommended to avoid diuretics during perioperative period to avoid perioperative dehydration and renal failure. Beta blockers and direct vasodil ators are preferable agents for the perioperative period. Sleep apnea Patient had a sleep study which showed sleep apnea. Weight loss could help with resolving this condition as well. Patient was encouraged to utilize CPAP/ BiPAP as pre recommended settings Hypercholesterolemia Patient currently taking Lipitor 40 mg for this.Continue medications as prescribed. Will obtain a new lipid profile. Colon cancer screening Patient reports he underwent colonoscopy approximately 5 years ago at [facility]. He denies family history of colon cancer. He does not believe he is due for colonoscopy currently. Will obtainthe record of this. Umbilical hernia I discussed with the patient his incarcerated umbilical hernia. He is interested in weight loss surgery. Will proceed with weight loss surgery 1st and then umbilical hernia repair if he becomes symptomatic in the future. Consults and Test ordered: Cardiac consult for risk assessment and optimization before surgery Dietitian consult for diet counseling Psychology/psychiatry consult for pre-operative clearance. Blood work to evaluate for any vitamin and mineral deficiency. VTE Risk Assessment EKG and Chest Xray. EGD Colonoscopy record Follow up: Will see me/PA/HEADER BOSS in 1 month. he meets the criteria as set by the [employer] [place] [employer] that recommends bariatric surgery on people with a body mass index greater than 40 kg/ms or with a body mass index greater than 35 kg/msq with co-morbid conditions. I have discussed with him at great length the definition of morbid obesity and the indications for surgery. I have explained to him that the surgery is not a cure. This is not a cosmetic surgery and she will still require active participation with exercise, diet, and having very close follow-up with a microbiological laboratory technician and me. In addition he must attend three support group meetings prior to surgery, and continue to attend post-operatively, in order to [...] occurs within the first two years post-operatively. I have pointed out the comparison to typical lap band weight loss of 30-65 % excess body weight loss. After that, his weight may plateau and [...] have discussed at great length with the complication of all surgeries such as bleeding, hematoma,seroma, poor wound healing, hernia formation, further surgeries, further surgeries if too much weight loss occurs, injury to liver, spleen, stomach pancreatic injury, kidney injury, diaphragmatic andheart injury, bowel injury, vessel injury and nerve injury. In discussing complications of surgeries, I placed special emphasis on esophagus gastric/bowel perforation leading to possible sepsis and , and deep vein thrombosis leading to possible pulmonary embolism and . With the gastric bypass, there are the additional potential risks such as anastomotic leak, gastric pouch necrosis, total gastrectomy, intestinal reconstruction, internal hernias, and gastrostomy tube. All surgeries may be performed laparoscopically, however [...] surgeries he will have a very small pouch, which will limit the quantity of food that he will be able to eat and the foods he needs to avoid in order to prevent discomfort or failure to lose weight. I have informed him that he will have to take at a minimum multivitamins and possible other supplementation. This is the case with any of the surgeries we discussed. However, with the gastric bandingsurgery, because of the Restrictive component/ foreign hardware, after the surgery he will have to [...] different types of vitamin and mineral deficiencies. All of these surgeries are bariatric surgeries; therefore the pre-surgery work up may be similar for any of the procedures. Each surgery requires a lot of teaching and education. I have discussed this with her at great length and have provided a great deal of information to the patient but he will have additional education provided by the education program coordinator and microbiological laboratory technician at [facility]. Because of the significant changes in his eating habits he will have to see a microbiological laboratory technician prior to and following surgery. I have informed him that the diet after surgery is a gradual progression from clear liquids to solid foods over a period of time. Bariatric surgery can affect his psychologically and emotionally, therefore he will have to see a psychiatrist before the surgery and may require post- operative therapy as well. he will have to make sure that he is willing to make the commitment for life and be an active participant. Laboratory studies including CMP, CBC, TSH, Iron, Ferritin, Folate, Vitamin B1, Vitamin B12, Vitamin D and an urinalysis will be obtained prior to surgery. Based upon history and exam findings, a pulmonary 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, stress test and sleep study may be required. Given the patient's condition and for evaluation of the stomach, an upper endoscopy will be completed prior to the bariatric procedure. I have discussed and given a lot of education to the patient. I have informed him that the surgery is not a cure and that this is not a cosmetic surgery. Any of the surgeries discussed can significantly improve his health as well as improve or resolve his comorbid medical conditions. Eliana Enriquez MD CC: Betty Rodriguez MD documented in this encounter Plan of Treatment Upcoming Encounters Date Type Department Care Team (Latest Contact Info) Description 04/25/2024 9:44 AM CDT Hospital Encounter [facility] [address] [place] [address] Eliana Enriquez MD [address] [place] [address] Surgery General 04/25/2024 9:44 AM CDT - 04/25/2024 10:10 AM CDT Surgery [facility] [address] [place] [address] Eliana Enriquez MD [address] [place] [address] ESOPHAGOGASTRODUODENOSCOPY WITH BIOPSY 05/03/2024 9:30 AM CDT Office Visit [facility] Weight Management Services [address] [place] [address] Eliana Enriquez MD [address] [place] [address] 07/19/2024 9:00 AM CDT Office Visit [facility] Weight Management Services [address] [place] [address] Anusha Campa APRN-DOCUMENT MANAGEMENT CONSULTANT [address] [place] [address] 01/18/2025 9:00 AM GREEN ENERGY MARKETING ANALYST Clinical Support [facility] Weight Management Services [address] [place] [address] 01/18/2025 9:30 AM GREEN ENERGY MARKETING ANALYST Office Visit [facility] Weight Management Services [address] [place] [address] Anusha Campa, LEASE PURCHASE TRUCK DRIVER-DOCUMENT MANAGEMENT CONSULTANT [address] [place] [address] Scheduled Procedures Name Priority Associated Diagnoses Date/Ti me ESOPHAGOGASTRODUODENOSCOPY ( EGD) BIOPSY Status post bariatric surgery 04/25/2024 9:44 AM CDT documented as of this encounter Visit Diagnoses Diagnosis Morbid obesity due to excess calories (HCC)- Primary Status post bariatric surgery Bariatric surgery status documented in this encounter Care Teams Hot Oiler Relationship Specialty Start Date End Date Betty Rodriguez MD [address] [place] [address] PCP - General Internal Medicine 09/02/22 documented as of this encounter
--- OUTSIDE RECORDS SUMMARY | 2024-02-06 01:13 | XMS_ITS | Encounter Summary ---
Author Organization [facility] Address [address] [place] [address] Care Team Providers Care Strip Polisher Name Role Phone Betty Rodriguez MD Primary Care Provider [phone] Encounter Details Date Type Department Care Team (Late st Contact Info) Description 10/21/2022 Orders Only [facility] Management Services [address] [place] [address] Anusha Campa, PRENATAL GENETIC COUNSELOR-CONCIERGE MANAGER [address] [place], [place] [address] Elevated hemoglobin (HCC) Social History Tobacco Use [...] [facility] [address] [place], [place] [address] Eliana Enriquez MD [address] [place] [address] Surgery General 04/25/2024 9:44 AM CDT - 04/25/2024 10:10 AM CDT Surgery [facility] [address] [place] [address] Eliana Enriquez MD [address] [place] [address] ESOPHAGOGASTRODUODENOSCOPY WITH BIOPSY 05/03/2024 9:30 AM CDT Office Visit [facility] [address] [place] [address] Eliana Enriquez MD [address] [place] [address] 07/19/2024 9:00 AM CDT Office Visit [facility] Services [address] [place] [phone] Anusha Campa, PRENATAL GENETIC COUNSELOR-CONCIERGE MANAGER [address] [place] [address] 01/18/2025 9:00 AM ROTARY DRILLER PROSPECTING Clinical Support [facility] [address] [place] [address] 01/18/2025 9:30 AM ROTARY DRILLER PROSPECTING Office Visit [facility] [address] [place] [address] Anusha Campa, PRENATAL GENETIC COUNSELOR-CONCIERGE MANAGER [address] [place] [address] Scheduled Procedures Name Priority Associated Diagnoses Date/Ti me ESOPHAGOGASTRODUODENOSCOPY ( EGD) BIOPSY Status post bariatric surgery 04/25/2024 9:44 AM CDT documented as of this encounter Procedures Procedure Name Priority Date/Time Associated Diagnosis Comments CBC W AUTO DIFFERENTIAL Routine 09/07/2022 Elevated hemoglobin (HCC) documented in this encounter Results * CBC WITH DIFFERENTIAL (09/07/2022) Blood BLOOD SPECIMEN / Unknown 09/07/2022 Anusha Campa PRENATAL GENETIC COUNSELOR-CONCIERGE MANAGER LAB - HEMATOLOGY ORDERABLES OTHER LAB documented in this encounter Visit Diagnoses Diagnosis Elevated hemoglobin (HCC) Other hemoglobinopathies Status post bariatric surgery Bariatric surgery status documented in this encounter Care Teams Strip Polisher Relationship Specialty Start Date End Date Betty Rodriguez MD [address] [place] [address] PCP - General Internal Medicine 09/02/22 documented as of this encounter
--- OUTSIDE RECORDS SUMMARY | 2024-02-06 01:13 | XMS_ITS | Encounter Summary ---
Author Organization [facility] Health Address [address] [place] [address] Care Team Providers Care Claim Processor Name Role Phone Betty Rodriguez MD Primary Care Provider [phone] Encounter Details Date Type Department Care Team (Late st Contact Info) Description 10/13/2022 12:30 PM CDT Office Visit [facility] Weight Management Services [address] [place] [address] Eliana Enriquez MD [address] [place] [address] Morbid obesity with BMI of 45.0-49.9, adult (HCC) (Primary Dx) Social History Tobacco [...] - Inhaled Oxygen Concentration - - Weight 162.3 kg (357 lb 12.8 oz) 2022 11:00 AM CDT Height 182.9 cm (6' 0.01 ) 10/13/2022 1 1:00 AM CDT Body Mass Index 48.52 10/13/2022 11:00 AM CDT documented in this encounter Progress Notes * Chula Truong RD/LD - 10/13/2022 2:30 PM CDT MEDICAL NUTRITION THERAPY Weight Management Services Bariatric Surgery Follow-Up Session Number: Session II Session Date: 10/13/22 Patient: Jayesh Anderson Date of : 1955 (67 year old) PCP Physician: Betty Rodriguez MD Referring Physician: Zoe NUTRITION ASSESSMENT Primary Diagnoses/Co-morbidities: Morbid Obesity Secondary Diagnoses/Co-morbidities: (no PMH) Have you seen a dietitian?: Yes Pertinent Labs: reviewed- ferritin 498 (H), vit D 13 (L) Pertinent Medications: reviewed Current V/M Supplements: CS MV, D2 weekly Eating History Are you following a special [...] Times You Eat Out Per Week : 1-3 per week Who prepares the meals?: Self Exercise Type of exercise?: Walking How many times do you exercise each week?: 7 How many minutes of exercise each time?: (15-20) Weight History Height: 182.9 cm (6' 0.01 ) Initial Program Weight: 368.8# BMI 50.01 Current Weight: (!) 162.3 kg (357 lb 12.8 oz) Weight Method (Utilize Scales): Standing BMI (Calculated): 48.52 Has your weight changed since last visit?: Loss # (11#) Total Program Weight Loss: 11# Pt seen for nutrition f/u. Pt is planning VSG. Pt's weight is down 11# since last visit, down 11# since beginning program. Pt reports drinking 1 protein shake/day- Fairlife or Ensure Max. Pt reports orders pizza once per week but only eats 2 slices. Pt reports drinking adequate fluids and has decreased to 16 oz coffee. Pt reports once finishes can of coffee at home, plans to transition to decaf. Pt reports walking 15-20 mins daily as exercise and stays busy around the home. Reviewed food recalland vitamins. 24 Hour Food Recall Breakfast - crack-a-egg cup Lunch - protein shake Dinner - 1 slice deli ham, tomato, 1 c macaroni Snacks - none Beverages - 64 oz lemon water, 16 oz bottle Gatorade Zero, 16 oz coffee NUTRITION DIAGNOSIS Diagnosis: Overweight/obesity Related to: excessive calorie intake As evidenced by: BMI of 48.53. NUTRITION INTERVENTION Interventions: Motivational interviewing;Goal setting;Self-monitoring;Problem solving;Recommended modifications;Collaboration with other providers Reviewed healthy balance diet for weight loss using protein shakes. Reviewed the lees bariatric dietprinciples. Further instruction provided for phases of bariatric diet. Reinforced behavior changes for bariatric diet such as no straws and smaller plate. Explained importance of continued bariatric vitamin/mineral and protein supplementation. Pt v/u. Pt will use 1-2 protein shakes/day as meals. Reviewed bariatric plate model with portions and reinforced choosing lean proteins first, then non-starchy vegetables and to limit CHOS to <1/2 c/meal.Reviewed mindful eating techniques and reinforced limiting snacking to 1-2x/week. Encouraged exercise as able - working towards goal of 150+ minutes/week. Pt v/u that nutrition changes are lifelong requirement for success post-op. Pt v/u and agreeable to f/u at pre surgery class. Pt has completed 3 paper SGs. Pt planning to attend in-person SG on 10/20. External Barriers to Change: none NUTRITION MONITORING/EVALUATION Nutrient Needs: Goals: Nutrition Goal #1: 1-2 protein shakes daily as a meal Nutrition Goal #2: 64+ oz fluids dailyNutrition Goal #3: 150+ mins exercise per week Monitor/Evaluation: Monitoring and evaluation: Fluid/beverage intake;Food intake;Protein intake;Carbohydrate intake;Mineral/element intake;Food and nutrition knowledge/skills;Beliefs and attitudes;Adherence;Physical activity;Weight change;Body Mass index RD contact information provided. Pt encouraged to call RD with questions and/or concerns. Evaluation of Overall Compliance Potential: Comprehension: Often Demonstrated Receptivity: Often Demonstrated Adherence: Sometimes Demonstrated Session Information Session Date: 10/13/22 Session Beginning Time: 1244 Session ending time: 1253 Session total minutes: 8 Minutes Teaching Method: Explanation;Demonstration;Teach Back Next visit: (pre surgery class) Total MNT minutes this calendar year: 45/240 Nutritional Review ?? Cleared, additional RD visits required pre-op ___ ?? Cleared, no additional RD visits required pre-op _X__ ?? Not cleared, additional RD visit(s) required pre-op ___ ?? Continue with post op RD visits per protocol ___ Chula Truong MS, RD eligible documented in this encounter Plan of Treatment Upcoming Encounters Date Type Department Care Team (Latest Contact Info) Description 04/25/2024 9:44 AM CDT Hospital Encounter [facility] [address] [place] [address] Eliana Enriquez MD [address] [place] [phone] Surgery General 04/25/2024 9:44 AM CDT - 04/25/2024 10:10 AM CDT Surgery [facility] Op [address] [place] [address] Eliana Enriquez MD [address] [place] [address] ESOPHAGOGASTRODUODENOSCOPY WITH BIOPSY 05/03/2024 9:30 AM CDT Office Visit [facility] Weight Management Services [address] [place] [address] Eliana Enriquez MD [address] [place] [address] 07/19/2024 9:00 AM CDT Office Visit [facility] Weight Management Services [address] [place] [address] Anusha Campa APRN-LINEMAN [address] [place] [address] 01/18/2025 9:00 AM INSTRUMENTAL MUSIC TEACHER Clinical Support [facility] Weight Management Services [address] [place] [address] 01/18/2025 9:30 AM INSTRUMENTAL MUSIC TEACHER Office Visit [facility] [address] [place] [address] Anusha Campa APRN-LINEMAN [address] [place] [address] Scheduled Procedures Name Priority Associated Diagnoses Date/Ti me ESOPHAGOGASTRODUODENOSCOPY ( EGD) BIOPSY Status post bariatric surgery 04/25/2024 9:44 AM CDT documented as of this encounter Visit Diagnoses Diagnosis Morbid obesity with BMI of 45.0-49.9, adult (HCC)- Primary Status post bariatric surgery Bariatric surgery status documented in this encounter Care Teams Claim Processor Relationship Specialty Start Date End Date Betty Rodriguez MD [address] [place] [address] PCP - General Internal Medicine 09/02/22 documented as of this encounter
--- OUTSIDE RECORDS SUMMARY | 2024-02-06 01:13 | XMS_ITS | Encounter Summary ---
Author Organization [facility] Address [address] [place] [address] Care Team Providers Care Hearing Aid Assembly Supervisor Name Role Phone Betty Rodriguez MD Primary Care Provider [phone] Reason for Visit * Reason Comments Obesity Follow Up Encounter Details Date Type Department Care Team (Late st Contact Info) Description 10/13/2022 1:00 PM CDT Office Visit [facility] Weight Management Services [address] [place] [phone] Eliana Enriquez MD [address] [place] [phone] Shanel Ware, FORMING AND ASSEMBLING SUPERVISOR-SIFTER OPERATOR [address] [place] [phone] Abnormal laboratory test result (Primary Dx) Social History Tobacco Use Types [...] Sign Reading Time Taken Comments Blood Pressure 150/84 10/13/2022 12:00 PM CDT Pulse 107 10/13/2022 12:00 PM CDT Temperature 36.5 ??C (97.7 ??F) 10/13/2022 1 2:00 PM CDT Respiratory Rate 16 10/13/2022 12:0 0 PM CDT Oxygen Saturation 92% 10/13/2022 12: 00 PM CDT Inhaled Oxygen Concentration - - Weight 162.3 kg (357 lb 12.8 oz) 2022 12:00 PM CDT Height 182.9 cm (6') 10/13/2022 12:00 PM CDT Body Mass Index 48.53 10/13/2022 12:00 PM CDT documented in this encounter Progress Notes * Shanel Ware APRN-CNP - 10/13/2022 12:12 PM CDT [facility] [place] [address] . . Date of encounter: No admission date for patient encounter. Provider: PREET Silver Patient: Jayesh Anderson CSN: [id number] Specialty: Bariatric Surgery Date of : 1955 Visit type: Bariatrics Pre-operative follow up Jayesh Anderson 67 year old male was referred by Betty Rodriguez MD for Bariatrics pre-op follow up. Bariatric Preop HPI he was seen in clinic last on 09/02/22. The procedure requested is Sleeve Gastrectomy. Patient is not attending support group meeting. The patient has not been participating in an onlinesupport group. No of support group meeting attended 0 Patient is taking 30 grams of proteins supplements daily. Patient is taking 64 oz of fluid per day. Doing 15-20 minutes of exercise daily. Encouraged pt to work towards goal of 150+ minutes weekly asable. The patient has not been participating in NExT program. Weight change as in weight history below. Weight History: Initial Weight:09/02/2022 Weight: (!) 167.3 kg (368 lb 12.8 oz) BMI (Calculated): 50.01 10/13/2022 Weight: (!) 162.3 kg (357 lb 12.8 oz) BMI (Calculated): 48.52 Total Wt Loss in lb: 11 lb Obesity History Years of being overweight? [...] Outpatient Medications Marked as Taking for the 10/13/22 encounter (Office Visit) with Shanel Ware APRN-CNP Medication Sig ??? atorvastatin (Lipitor) 40 MG tablet Take 1 (one) tablet by mouth at bedtime ??? lisinopril-hydroCHLOROthiazide (Prinzide; Zestoretic) 10-12.5 MG tablet Take 1 (one) tablet by mouth once daily ??? vitamin D, ergocalciferol, (Drisdol) 1.25 MG (26857 UT) capsule Take 1 (one) capsule by mouth every 7 days Reasons: Vitamin D Deficiency (Not in a hospital admission) No Known Allergies Objective: Vital Signs: BP 150/84 Pulse 107 Temp 97.7 ??F (36.5 ??C) (Temporal) Resp 16 Ht 1.829 m (6') Wt (!) 162.3 kg (357 lb 12.8 oz) SpO2 92% Weight: (!) 162.3 kg (357 lb 12.8 oz) Height: 182.9 cm (6') Body mass index is 48.53 kg/m??. Physical Exam Physical Exam Labs No results for input(s): WBC, RBC, HGB, HCT, PLTCOUNT in the last 56406 hours. No results for input(s): SODIUM, POTASSIUM, CO2, BUN, CREATININE in the last 42539 hours. Invalid input(s): CLORIDE No results for input(s): GLUCOSE in the last 41887 hours. No results for input(s): AST, ALT in the last 37380 hours. No results for input(s): LDL, HDL, TRIG, TSH in the last 63297 hours. No results for input(s): HGBA1C in the last 46244 hours. No results for input(s): PT, PTT, INR, TSH in the last 72612 hours. No results for input(s): TSH in the last 09215 hours. No results for input(s): IRON in the last 62229 hours. No results for input(s): GLEVLUTT90 in the last 29457 hours. No results for input(s): VITAMINA in the last 92443 hours. No results for input(s): IRON in the last 08471 hours. No results for input(s): VITK1 in the last 52791 hours. No results for input(s): [id number] in the last 14052 hours. No results for input(s): ALPHATOCOPH in the last 84088 hours. No results for input(s): GAMMATOCOPH in the last 65608 hours. No results for input(s): MAGMGDL in the last 06371 hours. No results for input(s): PHOS in the last 35781 hours. Some lab results will be in [...] NExT program / an exercise log. ?? Hypertension Patient currently taking lisinopril hydrochlorothiazide for this. His 150/84 today. Advised patientto monitor blood pressure daily follow-up with primary care provider if blood pressure remains 140/90 or greater. Continue with the anti-hypertensive medication. Primary to optimize for now. Patient was recommended to avoid diuretics during perioperative period to avoid perioperative dehydration and renal failure. Beta blockers and direct vasodilators are preferable agents for the perioperative period. ?? Sleep apnea Patient had a sleep study which showed sleep apnea. Weight loss could help with resolving this condition as well. Patient was encouraged to utilize CPAP/ BiPAP as pre recommended settings ?? Hypercholesterolemia Patient currently taking Lipitor 40 mg for this.Continue medications as prescribed. Lipid profile normal on initial testing. ?? Colon cancer screening Patient reports he underwent colonoscopy approximately 5 years ago at [facility]. He reportshe is due for repeat colonoscopy. He denies family history of colon cancer. He is scheduled here 10/19/22. Abnormal Thyroid On initial lab testing TSH was abnormal 4.05. He will follow up with PCP. Vitamin D deficiency He had low vitamin D on initial testing. He is taking supplementation per protocol. Plan to recheckvitamin D 01/06. ?? Umbilical hernia I discussed with the patient his incarcerated umbilical hernia. He is interested in weight loss surgery. Will proceed with weight loss surgery 1st and then umbilical hernia repair if he becomes symptomatic in the future. VTE risk VTE risk assessment completed per [place] [facility] assessment tool ([employer]). Patient is noted to be of low risk for post-operative VTE event with a score of 14. Plan for standard DVT prophylaxis following procedure. ?? Consults and Test ordered: Cardiac consult for risk assessment and optimization before surgery: Sees Dr Oseas Rick at [facility]. Dietitian consult for diet counseling: Cleared 10/13/22 Psychology/psychiatry consult for pre-operative clearance. Scheduled here 10/19/22. Blood work to evaluate for any vitamin and mineral deficiency. Completed 09/07/22 and discussed withpt today. Missing PTT and HgA1c will request from [facility]. VTE Risk Assessment: Completed and scanned into eEye. EKG: Completed 09/08/22 (abnormal) Chest Xray. Order given to pt. EGD/Colonoscopy: He is scheduled here 01/21/23 ?? Follow up: Will see me/PA/RELAY ADJUSTER in 1 month. He verbalized understanding and is agreeable to this plan after shared decision making with patient. Shanel Ware APRN-SIFTER OPERATOR CC: Betty Rodriguez MD documented in this encounter Plan of Treatment Upcoming Encounters Date Type Department Care Team (Latest Contact Info) Description 04/25/2024 9:44 AM CDT Hospital Encounter [facility] [place] - [address] [place] [address] Eliana Enriquez MD [address] [place] [phone] Surgery General 04/25/2024 9:44 AM CDT - 04/25/2024 10:[address] [facility] [place] - [address] [place] [address] Eliana Enriquez MD [address] [place] [address] ESOPHAGOGASTRODUODENOSCOPY WITH BIOPSY 05/03/2024 9:30 AM CDT Office Visit [facility] Management Services [address] [place] [address] Eliana Enriquez MD [address] [place] [address] 07/19/2024 9:00 AM CDT Office Visit [facility] Weight Management Services [address] [place] [address] Anusha Campa APRN-SIFTER OPERATOR [address] [place] [address] 01/18/2025 9:00 AM MARKETING INSTRUCTOR Clinical Support [facility] Weight Management Services [address] [place] [address] 01/18/2025 9:30 AM MARKETING INSTRUCTOR Office Visit [facility] Weight Management Services [address] [place] [phone] Anusha Campa APRN-SIFTER OPERATOR [address] [place] [address] Scheduled Orders Name Type Priority Associated Diagnoses Orde r Schedule COMPREHENSIVE METABOLIC PANEL Lab Routine Abnormal laboratory test result Expected: 12/17/2022 (Approximate), Expires: 10/13/2023 Scheduled Procedures Name Priority Associated Diagnoses Date/Ti me ESOPHAGOGASTRODUODENOSCOPY ( EGD) BIOPSY Status post bariatric surgery 04/25/2024 9:44 AM CDT documented as of this encounter Visit Diagnoses Diagnosis Abnormal laboratory test result- Primary Other abnormal clinical finding Status post bariatric surgery Bariatric surgery status documented in this encounter Care Teams Hearing Aid Assembly Supervisor Relationship Specialty Start Date End Date Betty Rodriguez MD [address] [place] [address] PCP - General Internal Medicine 09/02/22 documented as of this encounter
--- OUTSIDE RECORDS SUMMARY | 2024-02-06 01:13 | XMS_ITS | Encounter Summary ---
Author Organization [facility] Address [address] [place] [address] Care Team Providers Care Shot Core Drill Operator Name Role Phone Betty Rodriguez MD Primary Care Provider [phone] Encounter Details Date Type Department Care Team (Late st Contact Info) Description 09/07/2022 Orders Only [facility] Weight Management Services [address] [place] [address] Anusha Campa, MECHANIC RECOVERY-HAMMERER TAB [address], [place] [address] Morbid obesity (HCC); Preop examination Social History [...] [facility] - [address] [place], [place] [address] Eliana Enriquez MD [address] [place] [address] Surgery General 04/25/2024 9:44 AM CDT - 04/25/2024 10:10 AM CDT Surgery [facility] - [address] [place] [address] Eliana Enriquez MD [address] [place] [address] ESOPHAGOGASTRODUODENOSCOPY WITH BIOPSY 05/03/2024 9:30 AM CDT Office Visit [facility] Weight Management Services [address] [place] [address] Eliana Enriquez MD [address] [place] [address] 07/19/2024 9:00 AM CDT Office Visit [facility] Management Services [address] [place] [address] Anusha Campa, MECHANIC RECOVERY-HAMMERER TAB [address] [place] [address] 01/18/2025 9:00 AM AUTO PARTS SALESPERSON Clinical Support [facility] Health Weight Management Services [address] [place] [address] 01/18/2025 9:30 AM AUTO PARTS SALESPERSON Office Visit [facility] Management Services [address] [place] [address] Anusha Campa, MECHANIC RECOVERY-HAMMERER TAB [address] [place] [address] Scheduled Procedures Name Priority Associated Diagnoses Date/Ti me ESOPHAGOGASTRODUODENOSCOPY ( EGD) BIOPSY Status post bariatric surgery 04/25/2024 9:44 AM CDT documented as of this encounter Procedures Procedure Name Priority Date/Time Associated Diagnosis Comments CBC W AUTO DIFFERENTIAL Routine 09/07/2022 Morbid obesity (HCC) Preop examination EKG 12-LEAD Routine 09/07/2022 Morbid obesity (HCC) Preop examination documented in this encounter Results * CBC WITH DIFFERENTIAL (09/07/2022) Blood BLOOD SPECIMEN / Unknown 09/07/2022 [facility] - HEMATOLOGY ORDERABLES OTHER LAB * EKG 12-LEAD (09/07/2022) An[facility]a [facility] ECG ORDERABLES documented in this encounter Visit Diagnoses Diagnosis Morbid obesity (HCC) Morbid obesity Preop examination Preoperative examination, unspecified Status post bariatric surgery Bariatric surgery status documented in this encounter Care Teams Shot Core Drill Operator Relationship Specialty Start Date End Date Betty Rodriguez MD [address] [place] [address] PCP - General Internal Medicine 09/02/22 documented as of this encounter
--- OUTSIDE RECORDS SUMMARY | 2024-02-06 01:13 | XMS_ITS | Encounter Summary ---
Author Organization [facility] Address [address] [place] [address] Care Team Providers Care It Quality Assurance Analyst Name Role Phone Betty Rodriguez MD Primary Care Provider Reason for Visit * Reason Onset Date Comments Surgery Rescheduled 11/02/2022 EGD/COL Encounter Details Date Type Department Care Team (Late st Contact Info) Description 11/02/2022 Telephone [facility] Weight Management Services [address] [place] [address] Eliana Enriquez MD [address] [place] [address] Surgery Rescheduled (EGD/COL) Social History Tobacco Use Types Packs/Day Years [...] encounter Miscellaneous Notes * Telephone Encounter - Kiana Cotton Poncho - 11/02/2022 3:23 PM CDT PC to patient. Asked if he would like to reschedule his pre operative EGD and Colonoscopy with Dr. Enriquez to 11/12/22. Patient was agreeable. Faxed form to [facility] and surgery. Patient stated today he saw Dr. Oseas Rick, his substitute nurse. Cardiac clearance form was faxed to Dr. Rick. documented in this encounter Plan of Treatment Upcoming Encounters Date Type Department Care Team (Latest Contact Info) Description 04/25/2024 9:44 AM CDT Hospital Encounter [facility] [place]note 2[facility] - [address] [place] [address] Eliana Enriquez MD [address] [place] [address] Surgery General 04/25/2024 9:44 AM CDT - 04/25/2024 10:10 AM CDT Surgery [facility] [place]note 2[facility] - [address] [place] [address] Eliana Enrqiuez MD [address] [place] [address] ESOPHAGOGASTRODUODENOSCOPY WITH BIOPSY 05/03/2024 9:30 AM CDT Office Visit [facility] Weight Management Services [address] [place] [address] Eliana Enriquez MD [address] [place] [address] 07/19/2024 9:00 AM CDT Office Visit [facility] Health Weight Management Services [address] [place] [address] Anusha Campa, DESIGN DRAFTER CHIEF-GOVERNMENT RELATIONS ANALYST [address] [place] [address] 01/18/2025 9:00 AM JEWEL SAWYER Clinical Support [facility] Health Weight Management Services [address] [place] [address] 01/18/2025 9:30 AM JEWEL SAWYER Office Visit [facility] Health Weight Management Services [address] [place] [address] Anusha Campa, DESIGN DRAFTER CHIEF-GOVERNMENT RELATIONS ANALYST [address] [place] [address] Scheduled Procedures Name Priority Associated Diagnoses Date/Ti me ESOPHAGOGASTRODUODENOSCOPY ( EGD) BIOPSY Status post bariatric surgery 04/25/2024 9:44 AM CDT documented as of this encounter Visit Diagnoses Not on filedocumented in this encounter Care Teams It Quality Assurance Analyst Relationship Specialty Start Date End Date Betty Rodriguez MD [address] [place] [phone] PCP - General Internal Medicine 09/02/22 documented as of this encounter
--- OUTSIDE RECORDS SUMMARY | 2024-02-06 01:13 | XMS_ITS | Encounter Summary ---
Author Organization [facility] Address [address] [place] [address] Care Team Providers Care Television Program Director Name Role Phone Betty Rodriguez MD Primary Care Provider [phone] Encounter Details Date Type Department Care Team (Late st Contact Info) Description 09/03/2022 1:00 PM CDT Office Visit [facility] Weight Management Services [address] [place] [address] Eliana Enriquez MD [address] [place] [address] Morbid obesity with BMI of 50.0-59.9, adult (HCC) (Primary Dx) Social History Tobacco [...] - Inhaled Oxygen Concentration - - Weight 167.3 kg (368 lb 12.8 oz) 2022 12:00 PM CDT Height 182.9 cm (6' 0.01 ) 09/03/2022 1 2:00 PM CDT Body Mass Index 50.01 09/03/2022 12:00 PM CDT documented in this encounter Progress Notes * Chula Truong RD/LD - 09/03/2022 1:00 PM CDT MEDICAL NUTRITION THERAPY Weight Management Services Bariatric Surgery Initial Nutrition EvaluationSession Number: Session I Session Date: 09/03/22 Patient: Jayesh Anderson Date of : 1955 (67 year old) PCP Physician: Betty Rodriguez MD Referring Physician: Zoe NUTRITION ASSESSMENT Primary Diagnoses/Co-morbidities: Morbid Obesity Secondary Diagnoses/Co-morbidities: (no PMH) Have you seen a dietitian?: Yes Pertinent Labs: no new to review Pertinent Medications: reviewed Current V/M Supplements: just restarted CS MV Eating History Are you following a special diet at home?: Weight Reduction Are you having trouble following your diet?: Yes Weight loss diets followed in the past: (N/A) Are you having any trouble eating?: No Are you avoiding salty food, and not adding salt to your food?: No Are you limiting your liquids?: No How much liquids per day do you drink?: (unable to recall) Usual Number of Times You Eat Out Per Week : (rare) Who prepares the meals?: Self Exercise Type of exercise?: None Weight History Height: 182.9 cm (6' 0.01 ) Initial Program Weight: 368.8# BMI 50.01 Current Weight: (!) 167.3 kg (368 lb 12.8 oz) Weight Method (Utilize Scales): Per H&P-(outpatient clinic use only) BMI (Calculated): 50.01 Has your weight changed since last visit?: No Total Program Weight Loss: none Pt seen for initial nutrition consult. Pt reports long history of unsuccessful weight loss/maintenance. Pt planning Sleeve Gastrectomy. Pt reports overall health as reason for surgery. Highest adult wt of 320#. Pt feels larger portions and eating until stuffed are biggest nutritional barriers to wtloss. Pt does identify as a boredom eater. Pt reports rarely eating out and self is responsible forpreparing meals/grocery shopping. Pt reports no structured exercise at this time. Reviewed food recall and vitamins. 24 Hour Food Recall (Current) Breakfast - brown swagger lunch meat, toast (rye bread Lunch - skipped Snack- 3 tomatoes Dinner - salami sandwich (2 slices rye bread) Beverages - lemon water, 10 cups coffee, 2 12 oz can Diet Coke NUTRITION DIAGNOSIS Diagnosis: Overweight/obesity Related to: excessive calorie intake As evidenced by: BMI of 50.01. NUTRITION INTERVENTION Interventions: Motivational interviewing;Goal setting;Self-monitoring;Problem solving;Recommended modifications;Collaboration with other providers Patient was instructed on healthy balance diet for weight loss using protein shakes. The current Bariatric Nutrition Guide was provided and the lees diet principles were introduced. Explained phases 1-4 of bariatric diet. Educated pt regarding behavior changes for bariatric diet such as no straws and smaller plate. Explained importance of continued bariatric vitamin/mineral and protein supplementation. Pt v/u. Pt is ready to begin bariatric nutrition recommendations for wt loss. Recommended pt begin replacing 1 meal daily with a protein shake and reviewed appropriate types, nutrition label, mixing technique, cost, where to purchase, etc. Reviewed plate model and recommended pt begin reducing portions by 1/3 to gradually be within plate model. Recommended pt consume protein first, then non- starchy vegetables and limit CHOs. Recommended no fried foods and to avoid high sugar foods. Reviewed mindful eating techniques and recommended pt take 15-20 minutes to consume meals/shakes to promote satiety and wt loss. Recommended 3 meals/day and to limit snacking unless truly hungry. Recommended limiting eating out to 1-2x/week. Recommended no soda/SSB and reviewed sugar-free, low kcal alternatives. Pt wasalso made aware that nutrition changes must occur and be lifelong in order to be successful post-op. Pt v/u. External Barriers to Change: meal skipping, excessive caffeine intake, soda, no structured exercise NUTRITION MONITORING/EVALUATION Nutrient Needs: Goals: Nutrition Goal #1: 1 protein shake daily as a meal Nutrition Goal #2: reduce portions by 1/3Nutrition Goal #3: <16 oz caffeine daily Monitor/Evaluation: Monitoring and evaluation: Fluid/beverage intake;Food intake;Protein intake;Mineral/element intake;Carbohydrate intake;Food and nutrition knowledge/skills;Adherence;Beliefs and attitudes;Physical activity;Weight change;Body Mass index RD contact information provided. Pt encouraged to call RD with questions and/or concerns. Evaluation of Overall Compliance Potential: Comprehension: Sometimes Demonstrated Receptivity: Sometimes Demonstrated Adherence: Sometimes Demonstrated Session Information Session Date: 09/03/22 Session beginning time: 1237 Session ending time: 1305 Session total minutes: 27 Minutes Teaching Method: Explanation;Demonstration;Teach Back Next visit: (1 month f/u) Total MNT minutes this calendar year: Quiz What food should you eat first on your plate? Protein How much caffeine are you allowed daily in oz? 16 oz How many minutes should it take you to eat a meal? 20 minutes What are potatoes, corn, peas, beans and lentils considered? Carbohydrates or starchy vegetables What is the better type of fat to consume? Unsaturated fat How many grams of protein do you need daily? (based on gender) 60+g for women, 80+ g for men What should you look for on the nutrition label? (i.e how many grams total fat and total sugar) <5 g total fat/serving and <5 g total sugars/serving How many fluid ounces should you consume daily? 64+ oz daily List 3 protein shakes that meet our guidelines. Premier, Fairlife, Pure Protein, Quest, Muscle Milk, etc. Are vitamins required? Yes Nutritional Review ?? Cleared, additional RD visits required pre-op ___ ?? Cleared, no additional RD visits required pre-op ___ ?? Not cleared, additional RD visit(s) required pre-op _X__ ?? Continue with post op RD visits per protocol ___ Chula Truong MS, RD eligible documented in this encounter Plan of Treatment Upcoming Encounters Date Type Department Care Team (Latest Contact Info) Description 04/25/2024 9:44 AM CDT Hospital Encounter [facility] - [address] [place] [address] Eliana Enriquez MD [address] [place] [address] Surgery General 04/25/2024 9:44 AM CDT - 04/25/2024 10:10 AM CDT Surgery [facility] - [address] [place] [address] Eliana Enriquez MD [address] [place] [address] ESOPHAGOGASTRODUODENOSCOPY WITH BIOPSY 05/03/2024 9:30 AM CDT Office Visit [facility] Health Weight Management Services [address] [place] [facility] [place] [address] Eliana Enriquez MD [address] [place] [address] 07/19/2024 9:00 AM CDT Office Visit [facility] Health Weight Management Services [address] [place] [address] Anusha Campa, CHAINSTITCH ELASTIC ATTACHER-GAS LINE REPAIRER [address] [place] [address] 01/18/2025 9:00 AM WARP TYING MACHINE KNOTTER Clinical Support [facility] Health Weight Management Services [address] [place] [address] 01/18/2025 9:30 AM WARP TYING MACHINE KNOTTER Office Visit [facility] Health Weight Management Services [address] [place] [address] Anusha Campa, CHAINSTITCH ELASTIC ATTACHER-GAS LINE REPAIRER [address] [place] [address] Scheduled Procedures Name Priority Associated Diagnoses Date/Ti me ESOPHAGOGASTRODUODENOSCOPY ( EGD) BIOPSY Status post bariatric surgery 04/25/2024 9:44 AM CDT documented as of this encounter Visit Diagnoses Diagnosis Morbid obesity with BMI of 50.0-59.9, adult (HCC)- Primary Status post bariatric surgery Bariatric surgery status documented in this encounter Care Teams Television Program Director Relationship Specialty Start Date End Date Betty Rodriguez MD [address] [place] [phone] PCP - General Internal Medicine 09/02/22 documented as of this encounter
--- OUTSIDE RECORDS SUMMARY | 2024-02-06 01:13 | XMS_ITS | Encounter Summary ---
Author Organization [facility] Address [address] [place] [address] Care Team Providers Care Inside Sales Director Name Role Phone Betty Rodriguez MD Primary Care Provider [phone] Reason for Visit * Reason Onset Date Comments Order 11/02/2022 Encounter Details Date Type Department Care Team (Late st Contact Info) Description 11/02/2022 Telephone [facility] Weight Management Services [address] [place] [address] Eliana Enriquez MD [address] [place] [address] Order Social History Tobacco Use Types Packs/Day Years [...] encounter Miscellaneous Notes * Telephone Encounter - Angela Luque LPN - 11/02/2022 3:55 PM CDT 1 day prep sent to pharmacy * Telephone Encounter - Angela Luque LPN - 11/02/2022 3:55 PM CDT ----- Message from Kiana Cotton sent at 11/02/2022 2:45 PM CDT ----- Please send 1 day prep to [facility] in [facility] for patient's EGD/COL on 11/12/22 documented in this encounter Plan of Treatment Upcoming Encounters Date Type Department Care Team (Latest Contact Info) Description 04/25/2024 9:44 AM CDT Hospital Encounter [facility] - [address] [place] [address] Eliana Enriquez MD [address] [place] [phone] Surgery General 04/25/2024 9:44 AM CDT - 04/25/2024 10:10 AM CDT Surgery [facility] - [facility] [address] [place] [address] Eliana Enriquez MD [address] [place] [address] ESOPHAGOGASTRODUODENOSCOPY WITH BIOPSY 05/03/2024 9:30 AM CDT Office Visit [facility] Weight Management Services [address] [place] [address] Eliana Enriquez MD [address] [place] [address] 07/19/2024 9:00 AM CDT Office Visit [facility] Weight Management Services [address] [place] [address] Anusha Campa APRN-OIL HEAT TECHNICIAN [address] [place] [address] 01/18/2025 9:00 AM TRIM MOUNTER Clinical Support [facility] Weight Management Services [address] [place] [address] 01/18/2025 9:30 AM TRIM MOUNTER Office Visit [facility] [address] [place] [address] Anusha Campa APRN-OIL HEAT TECHNICIAN [address] [place] [address] Scheduled Procedures Name Priority Associated Diagnoses Date/Ti me ESOPHAGOGASTRODUODENOSCOPY ( EGD) BIOPSY Status post bariatric surgery 04/25/2024 9:44 AM CDT documented as of this encounter Visit Diagnoses Not on filedocumented in this encounter Care Teams Inside Sales Director Relationship Specialty Start Date End Date Betty Rodriguez MD [address] [place] [phone] PCP - General Internal Medicine 09/02/22 documented as of this encounter
--- OUTSIDE RECORDS SUMMARY | 2024-02-06 01:13 | XMS_ITS | Encounter Summary ---
Author Organization [facility] Address [address] [facility] [place] [address] Care Team Providers Care Public Health Officer Name Role Phone Betty Rodriguez MD Primary Care Provider [phone] Reason for Referral * Consultation (Routine) - Closed Specialty Diagnoses / Procedures Referred By Contac t Referred To Contact Psychology Diagnoses Morbid obesity (HCC) Preop examination Anusha Campa APRN-CNP [address] [place] [address] Referral ID Status Reason Start Date Expiration Date V isits Requested Visits Authorized [id number] Closed Specialty Services Required 10/28/2022 10/28/2023 1 1 * OP/Amb RFL Auth (Routine) - Closed Specialty Diagnoses / Procedures Referred By Contac t Referred To Contact Diagnoses Morbid obesity (HCC) Preop examination Procedures EKG 12-LEAD Anusha Campa APRN-CNP [address] [place] [address] Referral ID Status Reason Start Date Expiration Date Visits Re quested Visits Authorized [id number] Closed 09/02/2022 09/02/2023 1 1 Encounter Details Date Type Department Care Team (Late st Contact Info) Description 09/02/2022 Orders Only [facility] Weight Management Services [address] [place] [phone] Anusha Campa, COMMERCIAL LOAN REVIEWER-CLARIFIER [address] [place] [address] Morbid obesity (HCC) ; Preop examination Social History Tobacco Use Types [...] Hospital Encounter [facility] [address] Op [address] [place] [address] Eliana Enriquez MD [address] [place] [phone] Surgery General 04/25/2024 9:44 AM CDT - 04/25/2024 10:10 AM CDT Surgery [facility] - Dena Op [address] [place] [address] Eliana Enriquez MD [address] [place] [address] ESOPHAGOGASTRODUODENOSCOPY WITH BIOPSY 05/03/2024 9:30 AM CDT Office Visit [facility] Weight Management Services [address] [place] [address] Eliana Enriquez MD [address] [place] [phone] 07/19/2024 9:00 AM CDT Office Visit [facility] Weight Management Services [address] [place] [address] Anusha Campa, COMMERCIAL LOAN REVIEWER-CLARIFIER [address] [place] [address] 01/18/2025 9:00 AM BALANCING MACHINE SET UP WORKER Clinical Support [facility] Weight Management Services [address] [place] [phone] 01/18/2025 9:30 AM BALANCING MACHINE SET UP WORKER Office Visit [facility] Weight Management Services [address] [place] [phone] Anusha Campa, COMMERCIAL LOAN REVIEWER-CLARIFIER [address] [place] [address] Scheduled Procedures Name Priority Associated Diagnoses Date/Ti me ESOPHAGOGASTRODUODENOSCOPY ( EGD) BIOPSY Status post bariatric surgery 04/25/2024 9:44 AM CDT Scheduled Referrals Name Type Priority Associated Diagnoses Orde r Schedule AMB REFERRAL TO PSYCHOLOGY Outpatient Referral Routine Morbid obesity (HCC) Preop examination Expected: 10/28/2022 (Approximate), Expires: 09/03/2023 documented as of this encounter Results * IRON + TRANSFERRIN PANEL (09/07/2022) Blood BLOOD SPECIMEN / Unknown 09/07/2022 Anusha Campa APRN-CLARIFIER LAB - CHEMISTRY ORDERABLES Performing Organization Address City/[facility]/ZIP Co de Phone Number OTHER LAB * PT PTT PANEL (09/07/2022) Blood BLOOD SPECIMEN / Unknown 09/07/2022 Anusha Campa COMMERCIAL LOAN REVIEWER-CLARIFIER LAB - COAGULATIO N ORDERABLES OTHER LAB * PTH INTACT+CALCIUM (09/07/2022) Blood BLOOD SPECIMEN / Unknown 09/07/2022 Anusha Campa COMMERCIAL LOAN REVIEWER-CLARIFIER LAB - CHEMISTRY ORDERABLES Performing Organization Address City/[facility]/ZIP Co de Phone Number OTHER LAB * TSH (09/07/2022) Blood BLOOD SPECIMEN / Unknown 09/07/2022 Anusha Douglas Katheryn RAJAN-CLARIFIER LAB - CHEMISTRY ORDERABLES OTHER LAB * VITAMIN B1 (09/07/2022) Blood BLOOD SPECIMEN / Unknown 09/07/2022 Ansuha R Katheryn MAYAN-CLARIFIER LAB - CHEMISTRY ORDERABLES OTHER LAB * VITAMIN B12 FOLATE PANEL (09/07/2022) Blood BLOOD SPECIMEN / Unknown 09/07/2022 Anusha R Katheryn RAJAN-CLARIFIER LAB - CHEMISTRY ORDERABLES Performing Organization Address City/[facility]/ZIP Co de Phone Number OTHER LAB * VITAMIN D 25-HYDROXY (09/07/2022) Blood BLOOD SPECIMEN / Unknown 09/07/2022 Anusha R Katheryn RAJAN-CLARIFIER LAB - CHEMISTRY ORDERABLES Performing Organization Address City/[facility]/ZIP Co de Phone Number OTHER LAB * MAGNESIUM BLOOD (09/07/2022) Blood BLOOD SPECIMEN / Unknown 09/07/2022 Anusha R Katheryn MAYAN-CLARIFIER LAB - CHEMISTRY ORDERABLES OTHER LAB * LIPID PROFILE (09/07/2022) Blood BLOOD SPECIMEN / Unknown 09/07/2022 Anusha Stella Katheryn MAYAN-CLARIFIER LAB - CHEMISTRY ORDERABLES OTHER LAB * HEMOGLOBIN A1C (09/07/2022) Blood BLOOD SPECIMEN / Unknown 09/07/2022 Anusha R Katheryn RAJAN-CLARIFIER LAB - CHEMISTRY ORDERABLES Performing Organization Address City/[facility] Co de Phone Number OTHER LAB * FERRITIN (09/07/2022) Blood BLOOD SPECIMEN / Unknown 09/07/2022 Anusha R Katheryn MAYAN-CLARIFIER LAB - CHEMISTRY ORDERABLES Performing Organization Address City/[facility] Co de Phone Number OTHER LAB * COMPREHENSIVE METABOLIC PANEL (09/07/2022) Blood BLOOD SPECIMEN / Unknown 09/07/2022 Anusha R Katheryn MAYAN-CLARIFIER LAB - CHEMISTRY ORDERABLES Performing Organization Address [facility] Co de Phone Number OTHER LAB * CBC WITH DIFFERENTIAL (09/07/2022) Blood BLOOD SPECIMEN / Unknown 09/07/2022 Anusha R Katheryn RAJAN-CLARIFIER LAB - HEMATOLOGY ORDERABLES Performing Organization Address [facility] de Phone Number OTHER LAB * XR CHEST 2VW (09/07/2022) Anatomical Region Laterality Modality Chest Other Anusha Campa APRN-CLARIFIER DIAGNOSTIC IMAGI NG ORDERABLES * EKG 12-LEAD (09/07/2022) Anusha Campa APRN-CLARIFIER ECG ORDERABLES documented in this encounter Visit Diagnoses Diagnosis Morbid obesity (HCC)- Primary Morbid obesity Preop examination Preoperative examination, unspecified Status post bariatric surgery Bariatric surgery status documented in this encounter Care Teams Public Health Officer Relationship Specialty Start Date End Date Betty Rodriguez MD [address] [place] [address] PCP - General Internal Medicine 09/02/22 documented as of this encounter
--- OUTSIDE RECORDS SUMMARY | 2024-02-06 01:13 | XMS_ITS | Encounter Summary ---
Author Organization [facility] Address [address] [place] [address] Care Team Providers Care Sealer Aircraft Name Role Phone Betty Rodriguez MD Primary Care Provider [phone] Reason for Visit * Auth/Cert (Routine) Specialty Diagnoses / Procedures Referred By Contac t Referred To Contact Diagnoses Gastroesophageal reflux disease, unspecified whether esophagitis present Screen for colon cancer Gastroesophageal reflux disease, unspecified whether esophagitis present [K21.9] Screen for colon cancer [Z12.11] Procedures LA ED EGD FLEX TRANSORAL DX LA COLONOSCOPY,DIAGNOSTIC ESOPHAGOGASTRODUODENOSCOPY (EGD) DIAGNOSTIC COLONOSCOPY SCREEN Referral ID Status Reason Start Date Expiration Date Visits Re quested Visits Authorized [id number] 1 1 Encounter Details Date Type Department Care Team (Late st Contact Info) Description 11/12/2022 10:42 AM CDT Anesthesia Event [facility] [address] [place] [address] Gabbie Contreras MD [address] [place] [address] Anesthesia Record Procedure Summary Procedure Name Responsible Anesthesiologist Anesthesia Start Time Anesthesia Stop Time ESOPHAGOGASTRODUODENOSCOPY w ith biopsy (Esophagus) Gabbie Contreras MD 11/12/22 1042 11/12/22 1143 Events Date Time Event Comment 11/12/2022 0951 1042 An Start 1044 An Start Data Starting O2 sa t is 85% 1044 PT Reassessment 1047 Timeout Anesthesia part icipated in timeout at the time documented in the record by nursing. 1136 Electnc Sig This record is electronically signed by the providers listed under staff. 1142 an stop data 1143 An Stop 1143 Handoff Meds Name Total midazolam (VERSED) 1 mg/mL injection 2 m g lidocaine (XYLOCAINE) 2% injection 100 m g propofol 200mg/20mL injection 110 mg propofol 500mg/50mL injection 637.5 mg glycopyrrolate 0.2 mg/mL injection 0.2 m g ketamine 50 mg/ml injection 25 mg lactated ringers infusion 800 mL * Agents Name Insp. N2O Exp. Desflurane Exp. N2O O2 Flow - Auxiliary O2 Insp. Desflurane N2O * Blood No blood administrations on file. Lines, Drains, and Airways Type Details Placement Removal Peripheral IV Date: 11/12/22; Time: 942; Orientation: Posterior, Right; Placed By: Brenda Lopez; Tolerance: Well 11/12/22 0943 by Genny Amador RN 11/12/22 1248 by Rosa Smyth RN Procedural Site (Incision) 11/12/22; 1048; Mouth; Endoscopic; egd; 11/12/22; 18411/12/22 1048 by Nayana Anderson RN 11/12/22 1849 by Generic, Auto Release Procedural Site (Incision) 11/12/22; 1054; Anal/Rectal; Endoscopic; colonoscopy; 11/12/22; 18411/12/22 1054 by Nayana Anderson RN 11/12/22 1849 by Generic, Auto Release Airways 11/12/22; 1055; Chula Santos [employer]; Oral Airway; 11/12/22; 1140; Chula Santos CRNA 11/12/22 1055 by Chula Santos APRN-CRNA 11/12/22 1140 by Chula Santos APRN-CRNA documented in this encounter Social History Tobacco [...] Progress Notes * Gabbie Contreras MD - 11/12/2022 12:01 PM CDT ANESTHESIA POSTOP EVALUATION NOTE Procedure: ESOPHAGOGASTRODUODENOSCOPY with biopsy (Esophagus) COLONOSCOPY with polypectomy (Rectum) Jayesh Anderson is a 67 year old male Patient Vitals for the past 6 hrs: BP Temp Pulse Resp SpO2 Pain Rating Score #1 Pain Scale/Observation Pulse - (SPO2/Cuff) 11/12/22 0944 135/76 97.5 ??F (36.4 ??C) 88 18 99 % 0 N -- 11/12/22 0952 -- -- -- -- -- 0 N -- 11/12/22 1146 131/82 97.8 ??F (36.6 ??C) 83 22 96 % 0 N 83 bpm 11/12/22 1150 102/66 -- 83 19 96 % -- -- 83 bpm 11/12/22 1153 -- -- -- -- 97 % -- -- 79 bpm 11/12/22 1155 106/74 -- 84 21 95 % -- -- 85 bpm 11/12/22 1200 -- -- 79 18 96 % -- -- 79 bpm Anesthesia Type: MAC Pre-op Diagnosis Codes: * Gastroesophageal reflux disease, unspecified whether esophagitis present [K21.9] * Screen for colon cancer [Z12.11] Mental Status: awake, alert, oriented and sufficiently recovered from acute administration of anesthesia to participate in the evaluation Neuro Status: No numbness, tingling or visual disturbances Respiratory Function: natural Cardiac Function: stable Postop Pain: acceptable to the patient Postop Hydration: adequate Postop Nausea: none Assessment: no apparent anesthetic complications, patient tolerated procedure well and no evidence of recall Patient Disposition: Release from Anesthesia Care NOTABLE EVENTS: No notable events documented. * Gabbie Contreras MD - 11/12/2022 9:48 AM CDT ANESTHESIA PREOPERATIVE EVALUATION NOTE Procedure: ESOPHAGOGASTRODUODENOSCOPY/ COLONOSCOPY Vitals: Patient Vitals for the past 6 hrs: BP Temp Pulse Resp SpO2 Pain Rating Score #1 11/12/22 0944 135/76 97.5 ??F (36.4 ??C) 88 18 99 % 0 LMP: No LMP for male patient. OB Status: unknown ANESTHESIA PRE-EVALUATION NOTE History of Present Illness: For EGD and Colonoscopy The patient is a current non-smoker. Physical Exam: Orientation X3 Airway/Mallampati Score: III Mouth Opening Distance: 3.5 fingerwidths Neck ROM: full TM Distance: < 3 FB Teeth: dentures/partials upper and dentures/partials lower Heart: normal - S1 S2 Lungs: clear to ausculation bilaterally Abdomen Exam: obese Physical Exam Additional Comments: Short neck, ovalles Review of Systems: History of anesthetic complications: No Sleep Apnea Risk: Yes, Loud snoring, Observed apnea while asleep, Large neck circumference, CPAP - compliant Malignant Hyperthermia: No GERD: Yes, well controlled Poor Exercise Tolerance: No Recent Chest Pain: No Shortness of Breath: No AICD/Pacemaker: No Renal Disease: No Other Findings: KENYA using CPAP since 3 weeks Short neck, Obese BMI=44 ANESTHESIA PLAN ASA Score: 3 NPO Status: No solids since midnight and No liquids within 2 hours Anesthesia Plan: MAC and general Planned Induction: intravenous Planned Postop Destination: PACU Anesthetic plan was discussed with: patient Anesthetic Plan discussion was: Consented The patient's procedural Anesthetic Plan was discussed with the [employer]. BMI, Height, Weight Tobacco History Estimated body mass index is 44.85 kg/m?? as calculated from the following: Height as of this encounter: 1.829 m (6'). Weight as of this encounter: 150 kg (330 lb 11 oz). Social History Tobacco Use Smoking Status Never Smokeless Tobacco Never Vaping Use ??? Vaping Use: Never used Alcohol History Drug History Social History Substance and Sexual Activity Alcohol Use Yes Comment: 2-3 drinks Social History Substance and Sexual Activity Drug Use Never Outpatient Medications: Inpatient Medications: Outpatient Medications Marked as Taking for the 11/12/22 encounter (Hospital Encounter) Medication Sig Last Dose ??? atorvastatin Take 1 (one) tablet by mouth at bedtime ??? lisinopril-hydroCHLOROthiazide Take 1 (one) tablet by mouth once daily ??? vitamin D (ergocalciferol) Take 1 (one) capsule by mouth every 7 days Reasons: Vitamin D Deficiency Current Facility-Administered Medications Medication Dose Last Admin ??? 0.9% NaCl 3 mL ??? lactated ringers New Bag at 11/12/22 0943 Allergies: No Known Allergies Relevant Problems No relevant active problems Problem List: There are no problems to display for this patient. Medical History: Past Medical History: Diagnosis Date ??? HTN (hypertension) Surgical History: Past Surgical History: Procedure Laterality Date ??? Lumbar Diskectomy ??? Meniscectomy Bilateral APPLIANCE SERVICE REPRESENTATIVE Status: No LMP for male patient. unknown OB History No obstetric history on file. Covid Vaccine: Lab Results: No results found for requested labs within last 120 days. No results found for requested labs within last 120 days. documented in this encounter Miscellaneous Notes * Anesthesia Transfer of Care - Chula Santos APRN-[employer] - 11/12/2022 11:42 AM CDT ANESTHESIA TRANSFER OF CARE NOTE Today's Date: 11/12/2022 Date of : 1955 Patient: Jayesh Anderson Procedure(s): ESOPHAGOGASTRODUODENOSCOPY with biopsy COLONOSCOPY with polypectomy Surgeon(s): Primary: Eliana Enriquez MD Preop Diagnosis: Pre-op Diagnois: * Gastroesophageal reflux disease, unspecified whether esophagitis present [K21.9] * Screen for colon cancer [Z12.11] Pre-op Meds (From admission, onward) Start Stop Status Route Frequency Ordered 11/12/22 0931 0.9% NaCl injection 3 mL -- Dispensed IK PRE-PROCEDURE MULTIPLE 11/12/22 0931 11/12/22 0945 famotidine (Pepcid) injection 20 mg 11/12/22 0944 Completed IV PRE-OP ONCE 11/12/22 0931 11/12/22 1042 glycopyrrolate (Robinul) injection -- Sent IV PRN 11/12/22 1054 11/12/22 1044 ketamine (Ketalar) injection -- Sent IV PRN 11/12/22 1055 11/12/22 0945 lactated ringers infusion -- Dispensed IV PRE-OP CONTINUOUS 11/12/22 0931 11/12/22 1044 lidocaine (Xylocaine) 2 % injection -- Sent IV PRN 11/12/22 1054 11/12/22 1042 midazolam (Versed) injection -- Sent IV PRN 11/12/22 1054 11/12/22 1044 propofol (Diprivan) infusion -- Sent IV CONTINUOUS PRN 11/12/22 1055 11/12/22 1044 propofol (Diprivan) injection -- Sent IV PRN 11/12/22 1054 Post-op Diagnosis: * Gastroesophageal reflux disease, unspecified whether esophagitis present [K21.9] * Screen for colon cancer [Z12.11] . No Known Allergies Vitals: Patient Vitals for the past 3 hrs: BP Temp Pulse Resp SpO2 Pain Rating Score #1 11/12/22 0952 -- -- -- -- -- 0 11/12/22 0944 135/76 97.5 ??F (36.4 ??C) 88 18 99 % 0 Lines, Drains, and Airways Type Details Placement Removal Peripheral IV Date: 11/12/22; Time: 942; Orientation: Posterior, Right; Location: Hand; Placed By:Brenda Lopez; Gauge: 20 Gauge; Tolerance: Well 11/12/22 0943 by Genny Amador RN Airways 11/12/22; 1055; Chula Santos [employer]; Oral Airway 11/12/22 1055 by Chula Santos APRN-CRNA Intraprocedure I/O Totals Intake lactated ringers infusion 800.00 mL I.V. 800 mL Total Intake 1600 mL Output Urine 0 mL Estimated Blood Loss 0 mL Total Output 0 mL Net Net Volume 1600 mL Patient Transfer Location: PACU Transport Airway: spontaneous respirations and supplemental O2 Complications: None Handoff Given? Yes Checklist or [...] Description 04/25/2024 9:44 AM CDT Hospital Encounter [facility] - [address]ena Op [address] [place] [address] Eliana Enriquez MD [address] [place] [address] Surgery General 04/25/2024 9:44 AM CDT - 04/25/2024 10:10 AM CDT Surgery [facility] - Dena Op [address] [place] [address] Eliana Enriquez MD [address] [place] [address] ESOPHAGOGASTRODUODENOSCOPY WITH BIOPSY 05/03/2024 9:30 AM CDT Office Visit [facility] Weight Management Services [address] [place] [address] Eliana Enriquez MD [address] [place] [address] 07/19/2024 9:00 AM CDT Office Visit [facility] Weight Management Services [address] [place] [address] Anusha Campa APRN-AMADOU [address] [place] [address] 01/18/2025 9:00 AM CAM SPECIALIST Clinical Support [facility] Health Weight Management Services [address] [place] [address] 01/18/2025 9:30 AM CAM SPECIALIST Office Visit [facility] Weight Management Services [address] [place] [address] Anusha Campa, SHOP MANAGER-CHINESE TEACHER [address] [place] [address] Scheduled Procedures Name Priority Associated Diagnoses Date/Ti sd ESOPHAGOGASTRODUODENOSCOPY ( EGD) BIOPSY Status post bariatric surgery 04/25/2024 9:44 AM CDT documented as of this encounter Visit Diagnoses Not on filedocumented in this encounter Administered Medications Inactive Administered Medications - up to 3 most recent administrations Medication Order MAR Action Action Date Dose Rate Site glycopyrrolate (Robinul) injection Intravenous, PRN, Starting on Tue11/12/22 at 1042, Until Tue11/12/22 at 1143, Anesthesia Intra-op $ Given 11/12/2022 10:42 AM CDT 0.2 mg ketamine (Ketalar) injection Intravenous, PRN, Starting on Tue11/12/22 at 1044, Until Tue11/12/22 at 1143, Anesthesia Intra-op $ Given 11/12/2022 10:44 AM CDT 25 mg lidocaine (Xylocaine) 2 % injection Intravenous, PRN, Starting on Tue11/12/22 at 1044, Until Tue11/12/22 at 1143, Anesthesia Intra-op $ Given 11/12/2022 10:44 AM CDT 100 mg midazolam (Versed) injection Intravenous, PRN, Starting on Tue11/12/22 at 1042, Until Tue11/12/22 at 1143, Anesthesia Intra-op $ Given 11/12/2022 10:42 AM CDT 2 mg propofol (Diprivan) infusion Intravenous, CONTINUOUS PRN, Starting on Tue11/12/22 at 1044, Until Tue11/12/22 at 1143, Anesthesia Intra-op Rate Change 11/12/2022 10:58 AM CDT 75 mcg/kg/min 67.5 mL/hr $ New Bag/Syringe 11/12/2022 10:44 AM CDT 100 mcg/kg/min 9 0 mL/hr propofol (Diprivan) injection Intravenous, PRN, Starting on Tue11/12/22 at 1044, Until Tue11/12/22 at 1143, Anesthesia Intra-op $ Given 11/12/2022 11:32 AM CDT 30 mg $ Given 11/12/2022 11:17 AM CDT 20 mg $ Given 11/12/2022 10:49 AM CDT 30 mg documented in this encounter Care Teams Sealer Aircraft Relationship Specialty Start Date End Date Betty Rodriguez MD [address] [place] [address] PCP - General Internal Medicine 09/02/22 documented as of this encounter
--- OUTSIDE RECORDS SUMMARY | 2024-02-06 01:13 | XMS_ITS | Encounter Summary ---
Author Organization [facility] Address [address] [place] [address] Care Team Providers Care Chapter Relations Administrator Name Role Phone Betty Rodriguez MD Primary Care Provider [phone] Encounter Details Date Type Department Care Team (Late st Contact Info) Description 09/14/2022 Orders Only [facility] Weight Management Services [address] [place] [address] Anusha Campa, ADMINISTRATIVE JUDGE-SLOT ATTENDANT [address], [place] [address] Morbid obesity (HCC); Preop examination Social History [...] 9:44 AM CDT Hospital Encounter [facility] [address] [place], [place] [address] Eliana Enriquez MD [address] [place] [address] Surgery General 04/25/2024 9:44 AM CDT - 04/25/2024 10:10 AM CDT Surgery [facility] Op [address] [place] [address] Eliana Enriquez MD [address] [place] [address] ESOPHAGOGASTRODUODENOSCOPY WITH BIOPSY 05/03/2024 9:30 AM CDT Office Visit [facility] Weight Management Services [address] [place] [address] Eliana Enriquez MD [address] [place] [address] 07/19/2024 9:00 AM CDT Office Visit [facility] Weight Management Services [address] [place] [address] Anusha Campa, ADMINISTRATIVE JUDGE-SLOT ATTENDANT [address] [place] [address] 01/18/2025 9:00 AM SENIOR FRONT END ENGINEER Clinical Support [facility] Weight Management Services [address] [place] [address] 01/18/2025 9:30 AM SENIOR FRONT END ENGINEER Office Visit [facility] Weight Management Services [address] [place] [address] Anusha Campa, ADMINISTRATIVE JUDGE-SLOT ATTENDANT [address] [place] [address] Scheduled Procedures Name Priority Associated Diagnoses Date/Ti me ESOPHAGOGASTRODUODENOSCOPY ( EGD) BIOPSY Status post bariatric surgery 04/25/2024 9:44 AM CDT documented as of this encounter Procedures Procedure Name Priority Date/Time Associated Diagnosis Comments VITAMIN D 25-HYDROXY Routine 09/07/2022 Morbid obesity (HCC) Preop examination documented in this encounter Results * VITAMIN D 25-HYDROXY (09/07/2022) Blood BLOOD SPECIMEN / Unknown 09/07/2022 Anusha R Katheryn ADMINISTRATIVE JUDGE-SLOT ATTENDANT LAB - CHEMISTRY ORDERABLES OTHER LAB documented in this encounter Visit Diagnoses Diagnosis Morbid obesity (HCC) Morbid obesity Preop examination Preoperative examination, unspecified Status post bariatric surgery Bariatric surgery status documented in this encounter Care Teams Chapter Relations Administrator Relationship Specialty Start Date End Date Betty Rodriguez MD [address] [place] [address] PCP - General Internal Medicine 09/02/22 documented as of this encounter
--- OUTSIDE RECORDS SUMMARY | 2024-02-06 01:13 | XMS_ITS | Encounter Summary ---
Author Organization [facility] Address [address] [place] [address] Care Team Providers Care Termite Exterminator Name Role Phone Betty Rodriguez MD Primary Care Provider [phone] Reason for Visit * Reason Comments Refill Request Encounter Details Date Type Department Care Team (Late st Contact Info) Description 11/30/2022 Refill [facility] Weight Management Services [address] [place] [phone] Anusha Campa, CHAIN MENDER-STORES NAVAL [address] [place] [address] Refill Request Social History Tobacco Use Types [...] AM CDT Hospital Encounter [facility] [address] [place] [address] Eliana Enriquez MD [address] [place] [address] Surgery General 04/25/2024 9:44 AM CDT - 04/25/2024 10:10 AM CDT Surgery [facility] Op [address] [place] [address] Eliana Enriquez MD [address] [place] [address] ESOPHAGOGASTRODUODENOSCOPY WITH BIOPSY 05/03/2024 9:30 AM CDT Office Visit [facility] Weight Management Services [address] [place] [address] Eliana Enriquez MD [address] [place] [address] 07/19/2024 9:00 AM CDT Office Visit [facility] Weight Management Services [address] [place] [address] Anusha Campa APRN-STORES NAVAL [address] [place] [address] 01/18/2025 9:00 AM VARNISH FILTERER Clinical Support [facility] Weight Management Services [address] [place] [address] 01/18/2025 9:30 AM VARNISH FILTERER Office Visit [facility] [address] [place] [address] Anusha Campa APRN-[employer]ORES [employer]AL [address] [place] [address] Scheduled Procedures Name Priority Associated Diagnoses Date/Ti me ESOPHAGOGASTRODUODENOSCOPY ( EGD) BIOPSY Status post bariatric surgery 04/25/2024 9:44 AM CDT documented as of this encounter Visit Diagnoses Diagnosis Vitamin D deficiency Status post bariatric surgery Bariatric surgery status documented in this encounter Care Teams Termite Exterminator Relationship Specialty Start Date End Date Betty Rodriguez MD [address] [place] [address] PCP - General Internal Medicine 09/02/22 documented as of this encounter
--- OUTSIDE RECORDS SUMMARY | 2024-02-06 01:13 | XMS_ITS | Encounter Summary ---
Author Organization [facility] Address [address] [place] [address] Care Team Providers Care Director Strategic Planning Name Role Phone Betty Rodriguez MD Primary Care Provider [phone] Encounter Details Date Type Department Care Team (Latest Contact Info) Description 10/19/2022 2:00 PM CDT Office Visit [facility] Weight Management Services [address] [place] [address] Encounter for pre-surgical psychological assessment (Primary Dx) Social History Tobacco Use Types [...] as of this encounter Progress Notes * Calli Waters APRN-CNS - 10/19/2022 1:37 PM CDT Bariatric Pre-Surgical Psychosocial Assessment MARIBELL Bennett License # [id number] Jayesh Anderson 1955 10/19/2022 [facility] Purpose of Assessment: To determine, within the limits of psychological certainty, whether Jayesh Anderson is comfortable with the decision to proceed with bariatric surgery; whether he comprehends the risks of bariatric surgery; whether he has reliable intimate relationships, supportive family dynamics and committed postoperative support following bariatric surgery; whether he has sufficient information on which to base informed consent. Information contained in this assessment is primarily obtained by patient self-reporting. Chief Complaint: Obesity History of Present Illness: Jayesh Anderson is a 67 year old morbidly obese female with a BMI of 48.53 who was referred for a pre-surgical psychosocial assessment in consideration of bariatric surgery. Weight History: As a child, overweight. In adolescence, overweight. As an adult, morbidly obese. During the past year, his weight has increased. Jayesh feels that he is 150 pounds overweight. The patient has tried dieting and walking to lose weight. Jayesh describes feeling his best at the age of 48, at which time he weighed 180 pounds. Eating Pattern: Jayesh states that he has 3 meals per day and meals consist of small portions. Meals consist of protein shakes, protein and vegetables. The patient eats healthy. Jayesh's average eating habits include sit down restaurant meals 0 times per week; fast foods 1 times per week; fried foods 1times per week; sweets 0 times per week; non-dietetic, non-alcoholic beverages 0 times per week; and alcoholic beverages 2 times per week. he identifies the following as a regular part of his diet: Protein shakes, beef, pork, eggs, fish, cottage cheese, cheese, peanut butter, a variety of vegetables, oranges, apples, tomatoes, grapes and bananas . When in a stressful situation, remains calm. Jayesh is most stressed when he has family stressors. Patient has attended 0 support group meetings. he reports weekly exercise as gardening, cleaning and walking at his tolerance level. He has knee painl . Diet History: High protein, low carbohydrate diet, Protein shakes Eating habits: Volume Eater, Snacks and grazes Related Medical Issues: Morbid obesity, Hypertension, Sleep Apnea, Umbilical Hernia, Hypercholesterolemia Related Medications: No diet medications Family History of Obesity: Patient reports the following: Jayesh's biological father was average and his biological mother was obese. Jayesh's biological paternal grandfather was average and his biological paternal grandmother was obese. Jayesh's biological maternal grandfather was overweight and his biological maternal grandmother was obese. Of his biological siblings, he describes 1 as obese and 0 as morbidly obese. 1 has cardiac disease and 1 has hypertension, And no diabetes and he has 1 biological siblings. Attempts at Non-Surgical Weight Loss: Jayesh has a history of sustained attempts at non-surgical weight loss with success for varying periods of time subsequent to which he has ultimately regained his weight. Given his current BMI of 48.53, weight loss surgery has been proposed in an effort to alleviate or to eliminate the future impact of co-morbid medical disease processes. Allergies: No Known Allergies Past Medical History: Past Medical History: Diagnosis Date ??? HTN (hypertension) Past Surgical History: Past Surgical History: Procedure Laterality Date ??? Lumbar Diskectomy ??? Meniscectomy Bilateral Trauma: None Illnesses: Morbid Obesity, Hypertension, Sleep Apnea, Umbilical hernia, Vitamin D Deficiency and Hypercholesterolemia Medications: Current Outpatient Medications: ??? atorvastatin (Lipitor) 40 MG tablet ??? lisinopril-hydroCHLOROthiazide (Prinzide; Zestoretic) 10-12.5 MG tablet ??? vitamin D, ergocalciferol, (Drisdol) 1.25 MG (68912 UT) capsule Social History: Tobacco Use: No Alcohol Use: 2-3 beers per week Substance Use: No Domestic Abuse: No Personal History of Mental Illness: No Psychological symptoms have not interfered with work, and have not interfered with personal relationships. Work History: Jayesh's total full-time work experience is 32 years and he has completed 12 years of school. Jayesh has been retired for 14 years.. Family History of Mental Illness: Brother was mentally retarded. Risks of Surgery: The risks, benefits, alternatives, and potential complications of bariatric surgery have been explained to him by the surgeon; he has researched and talked to other patients who have undergone the procedure; he wishes to proceed and believes that the risks of not undergoing the procedure are greater than the risks of undergoing the procedure; he believes that he has enough information regarding the procedure to make an informed decision. Psychiatric Screener: The following tools were used in the assessment today: Clinical Interview Eating Attitudes Test (EAT-26): Score is 13. Answered no to behavioral health questions on the test. Patient rates his life satisfaction as 10 on a scale of 1-10. Appearance: appropriate, well-groomed and neat Psychomotor: slowed Speech: normal, soft Orientation: alert to person, place, time, and situation Attention/Concentration: normal Memory: intact shelter memory and short term memory Mood: euthymic Affect: appropriate, full and mood-congruent Thought Processes: lucid and logical Thought Content: normal Judgement/Insight: good Commitment to Postoperative Regimen: The patient understands that bariatric surgery is a tool to assist in weight loss and will not provide freedom from diet and exercise program must be followed faithfully after bariatric surgery; successful weight loss and control may require weight loss coachingand personal accountability; he is committed to the postoperative care, diet and exercise program prescribed to him by the bariatric surgeon. Post-Operative Support: , Melani Patient Expectations: Following bariatric surgery, hopes to have decreased pain. Patient Prediction of Outcome: Positive Patient's Assessment of Interview: . Jayesh understands that he has a right to direct telephone contact with a mental health professional and he believes that no further interview is necessary and/or desirable at this time. Jayesh has expressed an interest in a mental health professional telephone follow-up interview during the first post-operative year. Recommendations: Jayesh's mental health history suggests that he is a suitable candidate for bariatric surgery. The patient has no underlying or untreated psychiatric disorders or psychosocial issues noted at this time. Jayesh indicates that she has been adequately informed regarding the risks of, the benefits of, the alternatives to, and the potential complications of the procedure by the surgeon. The patient asserts that he has made an informed decision and professes reasonable post-procedural expectations. Jayesh describes reliable intimate relationships and indicates that post-operative care and nutritional support has been arranged. Patient location: Hospital outpatient clinic This encounter was performed using: Assessment Interview Total time spent with the patient: 40 minutes MARIBELL Bennett documented in this encounter Plan of Treatment Upcoming Encounters Date Type Department Care Team (Latest Contact Info) Description 04/25/2024 9:44 AM CDT Hospital Encounter [facility] Op [address] [place] [address] Eliana Enriquez MD [address] [place] [address] Surgery General 04/25/2024 9:44 AM CDT - 04/25/2024 10:10 AM CDT Surgery [facility] [address] [place] [address] Eliana Enriquez MD [address] [place] [address] ESOPHAGOGASTRODUODENOSCOPY WITH BIOPSY 05/03/2024 9:30 AM CDT Office Visit [facility] Health Weight Management Services [address] [place] [address] Eliana Enriquez MD [address] [place] [address] 07/19/2024 9:00 AM CDT Office Visit [facility] Weight Management Services [address] [place] [address] Anusha Campa, COTTON DISPATCHER-SAILBOAT CAPTAIN [address] [place] [address] 01/18/2025 9:00 AM SEGMENT ASSEMBLER Clinical Support [facility] Health Weight Management Services [address] [place] [address] 01/18/2025 9:30 AM SEGMENT ASSEMBLER Office Visit [facility] Weight Management Services [address] [place] [address] Anusha aCmpa, COTTON DISPATCHER-SAILBOAT CAPTAIN [address] [place] [address] Scheduled Procedures Name Priority Associated Diagnoses Date/Ti me ESOPHAGOGASTRODUODENOSCOPY ( EGD) BIOPSY Status post bariatric surgery 04/25/2024 9:44 AM CDT documented as of this encounter Visit Diagnoses Diagnosis Encounter for pre-surgical psychological assessment- Primary Status post bariatric surgery Bariatric surgery status documented in this encounter Care Teams Director Strategic Planning Relationship Specialty Start Date End Date Betty Rodriguez MD [address] [place] [phone] PCP - General Internal Medicine 09/02/22 documented as of this encounter
--- OUTSIDE RECORDS SUMMARY | 2024-02-06 01:13 | XMS_ITS | Encounter Summary ---
Author Organization [facility] Address [address] [facility] [place] [address] Care Team Providers Care Igniter Capper Name Role Phone Betty Rodriguez MD Primary Care Provider [phone] Reason for Visit * Reason Comments Bariatric Surgery Follow-up F/u EGD/COL 11/12/2022 Encounter Details Date Type Department Care Team (Late st Contact Info) Description 12/01/2022 11:00 AM CDT Office Visit [facility] Health Weight Management Services [address] [place] [address] Shanel Ware, DIRECTOR PACKAGING-STRAP SETTER [address] [place] [phone] Morbid obesity (HCC) (Primary Dx) Social History Tobacco Use [...] Reading Time Taken Comments Blood Pressure 130/72 12/01/2022 10:53 AM CDT Pulse 84 12/01/2022 10:53 AM CDT Temperature 36.1 ??C (96.9 ??F) 12/01/2022 1 0:53 AM CDT Respiratory Rate 20 12/01/2022 10:5 3 AM CDT Oxygen Saturation 95% 12/01/2022 10: 53 AM CDT Inhaled Oxygen Concentration - - Weight 149.8 kg (330 lb 3.2 oz) 023 10:53 AM CDT Height 182.9 cm (6') 12/01/2022 10:53 AM CDT Body Mass Index 44.78 12/01/2022 10:53 AM CDT documented in this encounter Functional [...] No 11/12/2022 documented as of this encounter Patient Instructions * Patient Instructions* Kiana Cotton - 12/01/2022 11:33 AM CDT PROCEDURE INSTRUCTIONS PROCEDURE: EGD DATE: 2022 GENERAL GUIDELINES All surgery patients need to [...] hospital. Remove all jewelry, make up, finger/toe maori and body piercings prior to your arrival [...] includes money, jewelry, watches, credit cards, etc.) documented in this encounter Progress Notes * Shanel Ware APRN-CNP - 12/01/2022 11:10 AM CDT [facility] [place] [address] . . Date of encounter: No admission date for patient encounter. Provider: PREET Silver Patient: Jayesh Anderson CSN: [id number] Specialty: Bariatric Surgery Date of : 1955 [...] ??? vitamin D, ergocalciferol, (Drisdol) 1.25 MG (93413 UT) capsule Take 1 (one) capsule by [...] No palpable visceromegaly. No palpableventral hernias. Skin: [place] and moist. No ulcers, rashes, or lesions. Extremities: Well perfused. No gross joint deformity noted Neurological: Cranial nerves 2-12 were grossly intact. Psychiatric: The patient's mood and affect appeared to be appropriate Labs No results for input(s): WBC , RBC , HGB , HCT , PLTCOUNT in the last 44559 hours. No results for input(s): SODIUM , POTASSIUM , CO2 , BUN , CREATININE in the last 83970 hours. Invalid input(s): CLORIDE No results for input(s): GLUCOSE in the last 93897 hours. No results for input(s): AST , ALT in the last 05164 hours. No results for input(s): LDL , HDL , TRIG , TSH in the last 04297 hours. No results for input(s): HGBA1C in the last 45358 hours. No results for input(s): PT , PTT , INR , TSH in the last 49260 hours. No results for input(s): TSH in the last 19060 hours. No results for input(s): IRON in the last 99665 hours. No results for input(s): PPIPMWCE94 in the last 32569 hours. No results for input(s): VITAMINA in the last 77291 hours. No results for input(s): IRON in the last 09222 hours. No results for input(s): VITK1 in the last 56226 hours. No results for input(s): [id number] in the last 02277 hours. No results for input(s): ALPHATOCOPH in the last 79591 hours. No results for input(s): GAMMATOCOPH in the last 81773 hours. No results for input(s): MAGMGDL in the last 83352 hours. No results for input(s): PHOS in the last 23888 hours. Some lab results will be in [...] per [place] [facility] assessment tool (AddThis). ??Patient is noted to be of low [...] be ready for final review and submission [facility]. ?? Follow up:??Will see me/PA/ADVERTISEMENT COMPOSITOR in 1 month. He verbalized understanding and is agreeable to this plan after shared decision making with patient. Shanel Ware, MOHINI-STRAP SETTER CC: Betty Rodriguez MD documented in this encounter Plan of Treatment Upcoming Encounters Date Type Department Care Team (Latest Contact Info) Description 04/25/2024 9:44 AM CDT Hospital Encounter [facility] Op [address] [place], [place] [address] Eliana Enriquez MD [address] [place] [address] Surgery General 04/25/2024 9:44 AM CDT - 04/25/2024 10:10 AM CDT Surgery [facility] [address] [place] [address] Eliana Enriquez MD [address] [place] [address] ESOPHAGOGASTRODUODENOSCOPY WITH BIOPSY 05/03/2024 9:30 AM CDT Office Visit [facility] Health Weight Management Services [address] [place] [address] Eliana Enriquez MD [address] [place] [address] 07/19/2024 9:00 AM CDT Office Visit [facility] Health Weight Management Services [address] [place] [address] Anusha Campa, DIRECTOR PACKAGING-STRAP SETTER [address] [place] [address] 01/18/2025 9:00 AM SPEECH PATHOLOGY ASSISTANT Clinical Support [facility] Health Weight Management Services [address] [place] [address] 01/18/2025 9:30 AM SPEECH PATHOLOGY ASSISTANT Office Visit [facility] Weight Management Services [address] [place] [address] Anusha Campa, DIRECTOR PACKAGING-STRAP SETTER [address] [place] [address] Scheduled Procedures Name Priority Associated Diagnoses Date/Ti me ESOPHAGOGASTRODUODENOSCOPY ( EGD) BIOPSY Status post bariatric surgery 04/25/2024 9:44 AM CDT documented as of this encounter Visit Diagnoses Diagnosis Morbid obesity (HCC)- Primary Morbid obesity Status post bariatric surgery Bariatric surgery status documented in this encounter Care Teams Igniter Capper Relationship Specialty Start Date End Date Betty Rodriguez MD [address] [place] [address] PCP - General Internal Medicine 09/02/22 documented as of this encounter
--- OUTSIDE RECORDS SUMMARY | 2024-02-06 01:13 | XMS_ITS | Encounter Summary ---
Author Organization [facility] Address [address] [facility] [place] [address] Care Team Providers Care Hand Candle Molder Name Role Phone Betty Rodriguez MD Primary Care Provider [phone] Encounter Details Date Type Department Care Team (Late st Contact Info) Description 10/15/2022 Orders Only [facility] Weight Management Services [address] [place] [address] Anusha Campa, GRIZZLYMAN-PREPRESS PROOFER [address] [place], [place] [address] Morbid obesity (HCC); Preop examination Social History [...] AM CDT Hospital Encounter [facility] Op [address] [place], [place] [address] Eliana Enriquez MD [address] [place] [address] Surgery General 04/25/2024 9:44 AM CDT - 04/25/2024 10:10 AM CDT Surgery [facility] [address] [place] [address] Eliana Enriquez MD [address] [place] [address] ESOPHAGOGASTRODUODENOSCOPY WITH BIOPSY 05/03/2024 9:30 AM CDT Office Visit [facility] Weight Management Services [address] [place] [address] Eliana Enriquez MD [address] [place] [address] 07/19/2024 9:00 AM CDT Office Visit [facility] Weight Management Services [address] [place] [address] Anusha Campa, GRIZZLYMAN-PREPRESS PROOFER [address] [place] [address] 01/18/2025 9:00 AM PLATE FITTER Clinical Support [facility] Weight Management Services [address] [place] [address] 01/18/2025 9:30 AM PLATE FITTER Office Visit [facility] Weight Management Services [address] [place] [address] Anusha Campa, GRIZZLYMAN-PREPRESS PROOFER [address] [place] [address] Scheduled Procedures Name Priority Associated Diagnoses Date/Ti me ESOPHAGOGASTRODUODENOSCOPY ( EGD) BIOPSY Status post bariatric surgery 04/25/2024 9:44 AM CDT documented as of this encounter Procedures Procedure Name Priority Date/Time Associated Diagnosis Comments HEMOGLOBIN A1C Routine 09/07/2022 Morbid obesity (HCC) Preop examination PT PTT PANEL Routine 09/07/2022 Morbid obesity (HCC) Preop examination XR CHEST 2VW Routine 09/07/2022 Morbid obesity (HCC) Preop examination documented in this encounter Results * PT PTT PANEL (09/07/2022) Blood BLOOD SPECIMEN / Unknown 09/07/2022 Anusha Campa APRN-AMADOU LAB - COAGULATIO N ORDERABLES OTHER LAB * HEMOGLOBIN A1C (09/07/2022) Blood BLOOD SPECIMEN / Unknown 09/07/2022 Anusha Campa APRN-PREPRESS PROOFER LAB - CHEMISTRY ORDERABLES Performing Organization Address City/[facility]/ZIP Co de Phone Number OTHER LAB * XR CHEST 2VW (09/07/2022) Anatomical Region Laterality Modality Chest Other Anusha OVIEDO DIAGNOSTIC IMAGI NG ORDERABLES documented in this encounter Visit Diagnoses Diagnosis Morbid obesity (HCC) Morbid obesity Preop examination Preoperative examination, unspecified Status post bariatric surgery Bariatric surgery status documented in this encounter Care Teams Hand Candle Molder Relationship Specialty Start Date End Date Betty Rodriguez MD [address] [place] [address] PCP - General Internal Medicine 09/02/22 documented as of this encounter
--- OUTSIDE RECORDS SUMMARY | 2024-02-06 01:13 | XMS_ITS | Encounter Summary ---
Author Organization [facility] Address [address] [address] Care Team Providers Care Dust Operator Name Role Phone Betty Rodriguez MD Primary Care Provider [phone] Reason for Visit * Reason Onset Date Comments General 10/14/2022 Encounter Details Date Type Department Care Team (Late st Contact Info) Description 10/14/2022 Telephone [facility] [address] [place] [address] Shanel Ware, TANK PUMPER PANELBOARD-C DEVELOPER [address] [place] [address] General Social History Tobacco Use [...] Telephone Encounter - Divine Arambula LPN - 10/14/2022 9:36 AM CDT Patient's called stating patient was given an order to complete a chest xray and is stating healready completed this at [facility]. stated he also received a lab order, explained that his bilirubin and AST were abnormal so is to have repeat CMP. voiced understanding. Explained I will call [facility] to get the chest xray result. Left detailed message with [facility] ([phone]) medical records to have PTT, hgbA1c lab results and chest xray be faxed to [phone]. Results received. documented in this encounter Plan of Treatment Upcoming Encounters Date Type Department Care Team (Latest Contact Info) Description 04/25/2024 9:44 AM CDT Hospital Encounter [facility] [address] [place] [address] Eliana Enriquez MD [address] [place] [address] Surgery General 04/25/2024 9:44 AM CDT - 04/25/2024 10:10 AM CDT Surgery [facility] [address] [place] [address] Eliana Enriquez MD [address] [place] [address] ESOPHAGOGASTRODUODENOSCOPY WITH BIOPSY 05/03/2024 9:30 AM CDT Office Visit [facility] [address] [place] [address] Eliana Enriquez MD [address] [place] [address] 07/19/2024 9:00 AM CDT Office Visit [facility] [address] [place] [address] Anusha Campa, TANK PUMPER PANELBOARD-C DEVELOPER [address] [place] [address] 01/18/2025 9:00 AM SENIOR SUPPORT ANALYST Clinical Support [facility] [address] [place] [address] 01/18/2025 9:30 AM SENIOR SUPPORT ANALYST Office Visit [facility] [address] [place] [address] Anusha Campa APRN-C DEVELOPER [address] [place] [address] Scheduled Procedures Name Priority Associated Diagnoses Date/Ti me ESOPHAGOGASTRODUODENOSCOPY ( EGD) BIOPSY Status post bariatric surgery 04/25/2024 9:44 AM CDT documented as of this encounter Visit Diagnoses Not on filedocumented in this encounter Care Teams Dust Operator Relationship Specialty Start Date End Date Betty Rodriguez MD [address] [place] [address] PCP - General Internal Medicine 09/02/22 documented as of this encounter
--- OUTSIDE RECORDS SUMMARY | 2024-02-06 01:13 | XMS_ITS | Encounter Summary ---
Author Organization [facility] Address [address] [place] [address] Care Team Providers Care Blanching Machine Operator Name Role Phone Betty Rodriguez MD Primary Care Provider Encounter Details Date Type Department Care Team (Late st Contact Info) Description 09/15/2022 Orders Only [facility] [address] [place] [address] Anusha Campa, CASINO BEVERAGE SERVER-LIVESTOCK CARETAKER [address] [place], [place] [address] Vitamin D deficiency Social History Tobacco Use [...] Description 04/25/2024 9:44 AM CDT Hospital Encounter [facility] [address] [place], [place] [address] Eliana Enriquez MD [address] [place] [address] Surgery General 04/25/2024 9:44 AM CDT - 04/25/2024 10:10 AM CDT Surgery [facility] [address] [place] [address] Eliana Enriquez MD [address] [place] [address] ESOPHAGOGASTRODUODENOSCOPY WITH BIOPSY 05/03/2024 9:30 AM CDT Office Visit [facility] Weight Management Services [address] [place] [address] Eliana Enriquez MD [address] [place] [address] 07/19/2024 9:00 AM CDT Office Visit [facility] Weight Management Services [address] [place] [address] Anusha Campa, CASINO BEVERAGE SERVER-LIVESTOCK CARETAKER [address] [place] [address] 01/18/2025 9:00 AM TELECOMMUNICATIONS OPERATOR Clinical Support [facility] [address] [place] [address] 01/18/2025 9:30 AM TELECOMMUNICATIONS OPERATOR Office Visit [facility] [address] [place] [address] Anusha Campa, CASINO BEVERAGE SERVER-LIVESTOCK CARETAKER [address] [place] [address] Scheduled Orders Name Type Priority Associated Diagnoses Orde r Schedule VITAMIN D 25-HYDROXY Lab Routine Vitamin D deficiency Expected: 01/14/2023, Expires: 10/17/2023 Scheduled Procedures Name Priority Associated Diagnoses Date/Ti me ESOPHAGOGASTRODUODENOSCOPY ( EGD) BIOPSY Status post bariatric surgery 04/25/2024 9:44 AM CDT documented as of this encounter Visit Diagnoses Diagnosis Vitamin D deficiency- Primary Status post bariatric surgery Bariatric surgery status documented in this encounter Care Teams Blanching Machine Operator Relationship Specialty Start Date End Date Betty Rodriguez MD [address] [place] [address] PCP - General Internal Medicine 09/02/22 documented as of this encounter
--- OUTSIDE RECORDS SUMMARY | 2024-02-06 01:15 | XMS_ITS | CONTINUITY OF CARE DOCUMENT ---
Author Name maris pollock Address Unknown Organization [facility] [place] Address [address] [place] [address] Phone [phone] Care Team Providers Care Heat Pump Installer Name Role Phone Fuentes PARRISH, Breann Unavailable TRINIDAD PARRISH, SAVI Encinas Unavailable [phone] FRANCES PARRISH, WESTON Unavailable INSURANCE PROVIDERS Payer name Policy type / Coverage type [place] red [employer] party ID [employer] OPEN ACCESS Other [id number]
--- OUTSIDE RECORDS SUMMARY | 2024-02-06 01:16 | XMS_ITS ---
Author Organization [facility] Address [address] [place], [place] [id number] Care Team Providers Care Automobile Travel Club Counselor Name Role Phone Betty Rodriguez Unavailable Unavailable MISSAEL CHUN Unavailable [phone] REASON FOR VISIT *General care Medications Medication SIG (Take, Route, Frequency, Duration) Notes Start Date End Date Status Amoxicillin-Pot Clavulanate 875-125 MG Oral for 5 Days Active Atorvastatin Calcium 40 MG Oral for 90 Days Active Lisinopril-hydroCHLOROthiaz teresita 10-12.5 MG Oral for 90 Days Active Vital Signs BMI 50.18 kg/m2 09/08/2023 Weight-kg 167.83 kg 09/08/2023 Height-cm 182.88 cm 09/08/2023 Weight 370 lbs 09/08/2023 Height 72 in 09/08/2023 Encounters Encounter Location Date Provider Diagnosis [address] [id number] 09/08/2023 MISSAEL CHUN Tinea unguium B35.1 ; Unspecified atherosclerosis of [place] arteries of extremities, bilateral legs I70.203 ; Type 2 diabetes mellitus with diabetic peripheral angiopathy without gangrene E11.51 ; Other hammer toe(s) (acquired), right foot M20.41 ; Other hammer toe(s) (acquired), left foot M20.42 ; Pain in right toe(s) M79.674 and Pain in left toe(s) M79.675 Assessments Encounter Date Diagnosis (ICD Code) Assessment Notes Treatment Notes Treatment Clinical Notes Section Notes 09/08/2023 Tinea unguium (ICD-10 - B35.1) Aseptic debridement of elongated thickened nails x 10 using sterile nippers, nails were debrided in length and thickness by 30% utilizing a nail nipper without incident. The patient was educated regarding all treatment options that include topical and oral antifungal treatments. I discussed the options of taking a sample of the nail to confirm diagnosis. Nail clippings were not sent for pathology analysis. The patient was educated why and how the fungal infection evolved in their feet and the patient was given information regarding how to prevent further infection. The patient was told to keep feet dry and change socks. The patient was told to be careful with old shoes and excessive sweating. The patient was educated regarding both OTC and prescription treatments. 09/08/2023 Unspecified atherosclerosis of [place] arteries of extremities, bilateral legs (ICD-10 - I70.203) Patient educated on risks and aggravating factors of PVD, including conservative treatment options such as a diet and exercise regimen to aid in slowing progression of vascular disease 09/08/2023 Type 2 diabetes mellitus with diabetic peripheral angiopathy without gangrene (ICD-10 - E11.51) Patient educated on proper diabetic foot care and the importance of tight glycemic control in regards to the prevention of diabetic manifestations and symptomatology in lower extremity. Explained to patient the importance of keeping interdigital spaces dry, not walking bare foot, having supportive shoe gear, using moisturizer to skin on feet daily especially in winter months, and checking feet daily for any new lesions or areas suspicious of trauma infection or ulceration. Explained to patient to return to ED if any change in foot health associated with signs of systemic infection including but not limited to nausea, vomiting, fever. 09/08/2023 Other hammer toe(s) (acquired), right foot (ICD-10 - M20.41) 09/08/2023 Other hammer toe(s) (acquired), left foot (ICD-10 - M20.42) 09/08/2023 Pain in right toe(s) (ICD-10 - M79.674) 09/08/2023 Pain in left toe(s) (ICD-10 - M79.675) Plan Of Treatment Treatment Notes Assessment Notes Tinea unguium Aseptic debridement of elongated thickened nails x 10 using sterile nippers, nails were debrided in length and thickness by 30% utilizing a nail nipper without incident. The patient was educated regarding all treatment options that include topical and oral antifungal treatments. I discussed the options of taking a sample of the nail to confirm diagnosis. Nail clippings were not sent for pathology analysis. The patient was educated why and how the fungal infection evolved in their feet and the patient was given information regarding how to prevent further infection. The patient was told to keep feet dry and change socks. The patient was told to be careful with old shoes and excessive sweating. The patient was educated regarding both OTC and prescription treatments. Unspecified atherosclerosis of [place] arteries of extremities, bilateral legs Patient educated on risks and aggravating factors of PVD, including conservative treatment options such as a diet and exercise regimen to aid in slowing progression of vascular disease Type 2 diabetes mellitus wit h diabetic peripheral angiopathy without gangrene Patient educated on proper diabetic foot care and the importance of tight glycemic control in regards to the prevention of diabetic manifestations and symptomatology in lower extremity. Explained to patient the importance of keeping interdigital spaces dry, not walking bare foot, having supportive shoe gear, using moisturizer to skin on feet daily especially in winter months, and checking feet daily for any new lesions or areas suspicious of trauma infection or ulceration. Explained to patient to return to ED if any change in foot health associated with signs of systemic infection including but not limited to nausea, vomiting, fever. Next Appt Details Follow Up: 3 Months, Reason: Provider Name:MISSAEL CHUN, 03/22/2024 08:20:00 AM, [address] [place] [address], [phone], Progress Notes * Jayesh DINHDOB: [birth year] (68 yo M)Acc No.[id number]:09/08/2023 Patient:?Jayesh DINH Provider:?MISSAEL CHUN :1955???Age:68 Y???Sex:Male Bob e:09/08/2023 Address:[facility] [address] Subjective: * Chief Complaints: * ???1. *General care. * HPI: ???HPI:?General care?Patient presents to the office for at risk foot care. Patient states that their nails are thickened, elongated and painful. Patient states that it is aggravated by shoe gear. Onset is gradual. Patient denies being diabetic., Patient denies taking blood thinners., Date last seen by Dr. Rodriguez was April 2023., Initials SS.? * ROS:?General / Constitutional:?Patient denies?weakness.?Respiratory:?Patient denies?chronic cough, shortness of breath, sputum production.?Cardiovascular:?Patient denies?chest pain, history of MS, irregular heartbeat.?Musculoskeletal:?Patient complains of?hammertoes.?Peripheral Vascular:?Patient denies?blanching of skin, cold extremities, decreased sensation in extremities.?Skin:?Patient complains of?fungal nails, nail changes.?Neurologic:?Patient denies?dizziness, gait abnormality, headache.? * Medical History:? * Medications:?Taking Atorvast atin Calcium 40 MG Tablet Oral , Taking Lisinopril-hydroCHLOROthiazide 10-12.5 MG Tablet Oral , Taking Amoxicillin-Pot Clavulanate 875-125 MG Tablet Oral Objective: * Vitals:?Wt:370lbs, Wt-k 7.83 kg, Ht: 72 in, Ht-cm: 182.88 cm, BMI:50.18Index, Body Surface Area: 2.92. * Examination: ???Physical Examination: ???Vascular: Dorsalis Pedis pulse noted at 1/4 right foot and 1/4 left foot and Posterior Tibial pulse noted at 1/4 right foot and 1/4 left foot, Capillary refill times noted to be less than three seconds x ten, Temperature gradient noted to be warm to cool to bilateral foot, pedal hair present to bilateral foot and no varicosities are noted ?Dermatologic: there are no open lesions, no signs of active clinical infection, no erythema noted, no ecchymoses, nails are elongated thickened and dystrophic with subungual debris x ten ?Musculoskeletal: there is pain to palpation onto nail plate x ten, no calf pain noted bilaterally, arch height noted at 2/5 non-weight bearing bilaterally, first metatarsophalangeal joint range of motion 30 deg non-weight bearing bilaterally, flexible fifth digit hammer toe deformity noted to bilateral foot reducible with kelikian push up test ?Neurology: protective sensation intact to light touch bilateral digits one through five, vibratory sensation intact to first metatarsophalangeal joint bilaterally. Assessment: * Assessment: 1.?Tinea unguium - B35.1 (Pr imary)?2.?Unspecified atherosclerosis of [place] arteries of extremities, bilateral legs - I70.203?3.?Type 2 diabetes mellitus with diabetic peripheral angiopathy without gangrene - E11.51?4.?Other hammer toe(s) (acquired), right foot - M20.41?5.?Other hammer toe(s) (acquired), left foot - M20.42?6.?Pain in right toe(s) - M79.674?7.?Pain in left toe(s) - M79.675? Plan: * Treatment: 2.?Unspecified atheroscleros is of [place] arteries of extremities, bilateral legs? Notes: Patient educated on risks and aggravating factors of PVD, including conservative treatment options such as a diet and exercise regimen to aid in slowing progression of vascular disease ?? 3.?Type 2 diabetes mellitus with diabetic peripheral angiopathy without gangrene? Notes: Patient educated on proper diabetic foot care and the importance of tight glycemic control in regards to the prevention of diabetic manifestations and symptomatology in lower extremity. Explained to patient the importance of keeping interdigital spaces dry, not walking bare foot, having supportive shoe gear, using moisturizer to skin on feet daily especially in winter months, and checking feet daily for any new lesions or areas suspicious of trauma infection or ulceration. Explained to patient to return to ED if any change in foot health associated with signs of systemic infection including but not limited to nausea, vomiting, fever. ?? * Follow Up:?3 Months * Billing Information: * Visit Code:? [id number] Office Visit, Est Pt., Level 3. * Procedure Codes:? * Sign off status: Completed true * Provider:?MISSAEL HERNANDEZYDOV Date:?09/08/2023 Generated for Leigh quiles/Abram/Lópezitting on:?02/06/2024 01:15 AM BOX SEALING MACHINE CATCHER History and Physical Notes * HPI (History of Present Illness) Category Sub-Category Detail Notes Category Not es HPI General care Patient presents to the office for at risk foot care. Patient states that their nails are thickened, elongated and painful. Patient states that it is aggravated by shoe gear. Onset is gradual. Patient denies being diabetic., Patient denies taking blood thinners., Date last seen by Dr. Rodriguez was April 2023., Initials SS Examination Category Sub-Category Detail Notes Category Not es Physical Examination Vascular: Dorsalis Pedis pulse noted at 1/4 right foot and 1/4 left foot and Posterior Tibial pulse noted at 1/4 right foot and 1/4 left foot, Capillary refill times noted to be less than three seconds x ten, Temperature gradient noted to be warm to cool to bilateral foot, pedal hair present to bilateral foot and no varicosities are noted Dermatologic: there are no open lesions, no signs of active clinical infection, no erythema noted, no ecchymoses, nails are elongated thickened and dystrophic with subungual debris x ten Musculoskeletal: there is pain to palpation onto nail plate x ten, no calf pain noted bilaterally, arch height noted at 2/5 non-weight bearing bilaterally, first metatarsophalangeal joint range of motion 30 deg non-weight bearing bilaterally, flexible fifth digit hammer toe deformity noted to bilateral foot reducible with kelikian push up test Neurology: protective sensation intact to light touch bilateral digits one through five, vibratory sensation intact to first metatarsophalangeal joint bilaterally
--- OUTSIDE RECORDS SUMMARY | 2024-02-06 01:16 | XMS_ITS | Patient Health Record ---
Author Organization [facility] Address [address] [place], [place] [id number] Care Team Providers Care Clinical Ob Name Role Phone Betty Rodriguez Unavailable Unavailable MISSAEL CHUN Unavailable [phone] Allergies No Known Allergies Reason For Referral No Information Medications Medication SIG (Take, Route, Frequency, Duration) Notes Start Date End Date Status Lisinopril-hydroCHLOROthiaz teresita 10-12.5 MG Oral for 90 Days Active Amoxicillin-Pot Clavulanate 875-125 MG Oral for 5 Days Active Atorvastatin Calcium 40 MG Oral for 90 Days Active Immunizations Vaccine Route Administration Date Status Comme nts Influenza, high dose seasonal Unknown 11/22/2022 Admini stered Vital Signs Height-cm 182.88 cm 09/08/2023 Weight-kg 167.83 kg 09/08/2023 Height 72 in 09/08/2023 Weight 370 lbs 09/08/2023 BMI 50.18 kg/m2 09/08/2023 Encounters Encounter Location Date Provider Diagnosis [address] [id number] 03/03/2023 MISSAEL CHUN Tinea unguium B35.1 ; Other hammer toe(s) (acquired), right foot M20.41 ; Other hammer toe(s) (acquired), left foot M20.42 ; Unspecified atherosclerosis of [place] arteries of extremities, bilateral legs I70.203 ; Pain in right toe(s) M79.674 ; Pain in left toe(s) M79.675 and Type 2 diabetes mellitus with diabetic peripheral angiopathy without gangrene E11.[address] [id number] 05/05/2023 MISSAEL DAVYDOV Tinea unguium B35.1 ; Other hammer toe(s) (acquired), right foot M20.41 ; Other hammer toe(s) (acquired), left foot M20.42 ; Unspecified atherosclerosis of [place] arteries of extremities, bilateral legs I70.203 ; Pain in right toe(s) M79.674 ; Pain in left toe(s) M79.675 and Type 2 diabetes mellitus with diabetic peripheral angiopathy without gangrene E11.[address] [id number] 07/07/2023 MISSAEL DAVYDOV Tinea unguium B35.1 ; Unspecified atherosclerosis of [place] arteries of extremities, bilateral legs I70.203 ; Type 2 diabetes mellitus with diabetic peripheral angiopathy without gangrene E11.51 ; Other hammer toe(s) (acquired), right foot M20.41 ; Other hammer toe(s) (acquired), left foot M20.42 ; Pain in right toe(s) M79.674 and Pain in left toe(s) M79.[address] [id number] 09/08/2023 MISSAEL DAVYDOV Tinea unguium B35.1 ; Unspecified atherosclerosis of [place] arteries of extremities, bilateral legs I70.203 ; Type 2 diabetes mellitus with diabetic peripheral angiopathy without gangrene E11.51 ; Other hammer toe(s) (acquired), right foot M20.41 ; Other hammer toe(s) (acquired), left foot M20.42 ; Pain in right toe(s) M79.674 and Pain in left toe(s) M79.[address] [id number] 11/10/2023 MISSAEL DAVYDOV Tinea unguium B35.1 ; Unspecified atherosclerosis of [place] arteries of extremities, bilateral legs I70.203 ; Type 2 diabetes mellitus with diabetic peripheral angiopathy without gangrene E11.51 ; Other hammer toe(s) (acquired), right foot M20.41 ; Other hammer toe(s) (acquired), left foot M20.42 ; Pain in right toe(s) M79.674 and Pain in left toe(s) M79.[address] [id number] 01/19/2024 MISSAEL CHUN Tinea unguium B35.1 ; Unspecified atherosclerosis of [place] arteries of extremities, bilateral legs I70.203 ; Type 2 diabetes mellitus with diabetic peripheral angiopathy without gangrene E11.51 ; Other hammer toe(s) (acquired), right foot M20.41 ; Other hammer toe(s) (acquired), left foot M20.42 ; Pain in right toe(s) M79.674 and Pain in left toe(s) M79.675 Assessments Encounter Date Diagnosis (ICD Code) Assessment Notes Treatment Notes Treatment Clinical Notes Section Notes 03/03/2023 Tinea unguium (ICD-10 - B35.1) Aseptic debridement [...] educated regarding both OTC and prescription treatments. 03/03/2023 Other hammer toe(s) (acquired), right foot (ICD-10 - M20.41) 05/05/2023 Other hammer toe(s) (acquired), right foot (ICD-10 - M20.41) 05/05/2023 Tinea unguium (ICD-10 - B35.1) Aseptic debridement [...] educated regarding both OTC and prescription treatments. 07/07/2023 Tinea unguium (ICD-10 - B35.1) Aseptic debridement [...] educated regarding both OTC and prescription treatments. 07/07/2023 Unspecified atherosclerosis of [place] arteries of extremities, bilateral legs (ICD-10 - I70.203) Patient educated on risks and aggravating factors of PVD, including conservative treatment options such as a diet and exercise regimen to aid in slowing progression of vascular disease 09/08/2023 Unspecified atherosclerosis of [place] arteries of extremities, bilateral legs (ICD-10 - I70.203) Patient educated on risks and aggravating factors of PVD, including conservative treatment options such as a diet and exercise regimen to aid in slowing progression of vascular disease 09/08/2023 Tinea unguium (ICD-10 - B35.1) Aseptic [...] educated regarding both OTC and prescription treatments. 11/10/2023 Tinea unguium (ICD-10 - B35.1) Aseptic debridement [...] educated regarding both OTC and prescription treatments. 11/10/2023 Unspecified atherosclerosis of [place] arteries of extremities, bilateral legs (ICD-10 - I70.203) Patient educated on risks and aggravating factors of PVD, including conservative treatment options such as a diet and exercise regimen to aid in slowing progression of vascular disease 01/19/2024 Unspecified atherosclerosis of [place] arteries of extremities, bilateral legs (ICD-10 - I70.203) Patient educated on risks and aggravating factors of PVD, including conservative treatment options such as a diet and exercise regimen to aid in slowing progression of vascular disease 01/19/2024 Tinea unguium (ICD-10 - B35.1) Aseptic debridement [...] educated regarding both OTC and prescription treatments. 01/19/2024 Type 2 diabetes mellitus with diabetic peripheral [...] but not limited to nausea, vomiting, fever. 11/10/2023 Type 2 diabetes mellitus with diabetic peripheral [...] not limited to nausea, vomiting, fever. 09/08/2023 Type 2 diabetes mellitus with diabetic [...] but not limited to nausea, vomiting, fever. 07/07/2023 Type 2 diabetes mellitus with diabetic peripheral [...] but not limited to nausea, vomiting, fever. 05/05/2023 Other hammer toe(s) (acquired), left foot (ICD-10 - M20.42) 03/03/2023 Other hammer toe(s) (acquired), left foot (ICD-10 - M20.42) 03/03/2023 Unspecified atherosclerosis of [place] arteries of extremities, bilateral legs (ICD-10 - I70.203) Patient educated on risks and aggravating factors of PVD, including conservative treatment options such as a diet and exercise regimen to aid in slowing progression of vascular disease 11/10/2023 Other hammer toe(s) (acquired), right foot (ICD-10 - M20.41) 09/08/2023 Other hammer toe(s) (acquired), right foot (ICD-10 - M20.41) 07/07/2023 Other hammer toe(s) (acquired), right foot (ICD-10 - M20.41) 05/05/2023 Unspecified atherosclerosis of [place] arteries of extremities, bilateral legs (ICD-10 - I70.203) Patient educated on risks and aggravating factors of PVD, including conservative treatment options such as a diet and exercise regimen to aid in slowing progression of vascular disease 01/19/2024 Other hammer toe(s) (acquired), right foot (ICD-10 - M20.41) 01/19/2024 Other hammer toe(s) (acquired), left foot (ICD-10 - M20.42) 07/07/2023 Other hammer toe(s) (acquired), left foot (ICD-10 - M20.42) 09/08/2023 Other hammer toe(s) (acquired), left foot (ICD-10 - M20.42) 11/10/2023 Other hammer toe(s) (acquired), left foot (ICD-10 - M20.42) 03/03/2023 Pain in right toe(s) (ICD-10 - M79.674) 05/05/2023 Pain in right toe(s) (ICD-10 - M79.674) 05/05/2023 Pain in left toe(s) (ICD-10 - M79.675) 03/03/2023 Pain in left toe(s) (ICD-10 - M79.675) 11/10/2023 Pain in right toe(s) (ICD-10 - M79.674) 09/08/2023 Pain in right toe(s) (ICD-10 - M79.674) 07/07/2023 Pain in right toe(s) (ICD-10 - M79.674) 01/19/2024 Pain in right toe(s) (ICD-10 - M79.674) 01/19/2024 Pain in left toe(s) (ICD-10 - M79.675) 07/07/2023 Pain in left toe(s) (ICD-10 - M79.675) 09/08/2023 Pain in left toe(s) (ICD-10 - M79.675) 11/10/2023 Pain in left toe(s) (ICD-10 - M79.675) 03/03/2023 Type 2 diabetes mellitus with diabetic peripheral [...] but not limited to nausea, vomiting, fever. 05/05/2023 Type 2 diabetes mellitus with diabetic peripheral [...] but not limited to nausea, vomiting, fever. Plan Of Treatment Next Appt Details Provider Name:MISSAEL CHUN 03/22/2024 08:20:00 AM, [address] [place] [address], [phone], Insurance Providers Payer Name Payer Address Payer Phone Subscriber Number Group Number Insured Name Patient Relationship to Insured Coverage Start Date Coverage End Date [employer] [address] [place] [address] [id number] Jayesh DINH Self - patient is the insured
== END 2024-01-30 09:08 | disposition home or self-care (01) ==
LOC: CHSLAB 09:12
PROVIDERS: PCP Internal Medicine
DX: D58.2 Other hemoglobinopathies (principal); Z98.84 Bariatric surgery status; E66.3 Overweight; Z68.26 Body mass index [BMI] 26.0-26.9, adult; R74.8 Abnormal levels of other serum enzymes; E78.00 Pure hypercholesterolemia, unspecified; E55.9 Vitamin D deficiency, unspecified; R94.6 Abnormal results of thyroid function studies
CPT/HCPCS: 36415; 80053; 80061; 82306; 82607; 82728; 82746; 83540; 83550; 83735; 83970; 84100; 84425; 84443; 84466; 85025

== ENCOUNTER 2024-03-13 10:07 | Outpatient (CLI) | payer MEDICARE, SELFPAY ==
[2024-03-13 10:46] LABS: CRP 2.6 mg/dL (0.0-0.9)
--- OUTSIDE RECORDS SUMMARY | 2024-03-13 10:58 | XMS_ITS | CONTINUITY OF CARE DOCUMENT ---
Author Name maris pollock Address Unknown Organization [facility] Address [address] [place] [address] Phone [phone] Care Team Providers Care Neuropsychology Division Chief Name Role Phone Fuentes PARRISH, Breann Unavailable [phone] TRINIDAD PARRISH, SAVI Encinas Unavailable FRANCES PARRISH, WESTON Unavailable INSURANCE PROVIDERS Payer name Policy type / Coverage type [place] red democrat ID [id number] OPEN ACCESS Other [id number]
--- OUTSIDE RECORDS SUMMARY | 2024-03-13 10:58 | XMS_ITS | Patient Health Summary ---
Author Organization [facility] Address [address] [place] [address] Care Team Providers Care Senior Technical Specialist Name Role Phone Betty Rodriguez MD Primary Care Provider Note from [facility],non-owned Affiliates and Associated Physician Practices is amultiple site organization consisting of ambulatory clinics and hospital sitesin [place], [place], [place] and [place]. This disclosure is being madepursuant to the Care Everywhere program and may not contain all information available regarding this patient. Last updated 17.[facility] Allergies No known active allergies Medications * [...] Comments Blood Pressure 130/64 01/27/2024 8:00 AM ASSET PROTECTION GREETER Pulse 64 01/27/2024 8:00 AM ASSET PROTECTION GREETER Temperature 36.3 ??C (97.3 ??F) 01/27/2024 8:00 AM CS T Respiratory Rate 18 01/27/2024 8:00 AM ASSET PROTECTION GREETER Oxygen Saturation 98% 01/27/2024 8:00 AM ASSET PROTECTION GREETER Inhaled Oxygen Concentration 21% 01/17/2023 1 1:15 PM ASSET PROTECTION GREETER Weight 88.7 kg (195 lb 8 oz) 01/27/2024 9:00 AM ASSET PROTECTION GREETER Height 182 cm (5' 11.65 ) 01/27/2024 9:00 AM ASSET PROTECTION GREETER Body Mass Index 26.77 01/27/2024 9:00 AM ASSET PROTECTION GREETER Medical Devices Implanted Type Area Senior Stock Plan Administrator Device Identifier Shelf Expiration Date Model / Serial / Lot Kit Tissue Clsr Duo Tssl 1 Prefl Syr - [id number] Implanted:Qty: 1 on 01/17/2023 by Eliana Enriquez MD at [facility] 09/13/2024 [id number] / [id number] / [id number] Procedures * VITAMIN B1(Performed 07/21/2023) Performed for [...] (HCC) * ENDOTRACHEAL TUBE NOTE(Performed 01/17/2023) * [place] LAP SLEEVE GASTRECTOMY(Performed 01/17/2023) Performed for Morbid [...] gastric ulcer hemorrhage or perforation present * [place] EGD FLEX TRANSORAL W BX SNGL OR [...] esophagitis present, Screen for colon cancer * [place] EGD FLEX TRANSORAL W BX SNGL OR [...] BLOOD SPECIMEN / Unknown 07/21/2023 Shanel Ware APRN-[facility] - [place] ORDERABLES Performing Organization Address City/[facility]/ZIP Co de Phone Number OTHER LAB * VITAMIN B1 (07/21/2023) Only the most recent of3 resultswithin the time period is included. Blood BLOOD SPECIMEN / Unknown 07/21/2023 Shanel Ware [facility]N-[facility] - [place] ORDERABLES OTHER LAB * VITAMIN D 25-HYDROXY (07/21/2023) Only the most recent of3 resultswithin the time period is included. Blood BLOOD SPECIMEN / Unknown 07/21/2023 Shanel Ware ED TRANSPORTER-[facility] - [place] ORDERABLES [facility] [address] [place], [place] [id number] [place] [address] * CBC WITH DIFFERENTIAL (07/21/2023) Only the most recent of7 resultswithin the time period is included. Blood BLOOD SPECIMEN / Unknown 07/21/2023 Shanel Ware [facility]N-[facility] - HEM ATOLOGY ORDERABLES OTHER LAB * COMPREHENSIVE METABOLIC PANEL (07/21/2023) Only the most recent of5 resultswithin the time period is included. Blood BLOOD SPECIMEN / Unknown 07/21/2023 Shanel Ware [facility] - [place] ORDERABLES Performing Organization Address City/[facility] Co de Phone Number OTHER LAB * PHOSPHORUS BLOOD (07/21/2023) Only the most recent of4 resultswithin the time period is included. Blood BLOOD SPECIMEN / Unknown 07/21/2023 Shanel Ware [facility] - [place] ORDER[place]LES Performing Organization Address City/[facility] Co de Phone Number OTHER LAB * MAGNESIUM BLOOD (07/21/2023) Only the most recent of6 resultswithin the time period is included. Blood BLOOD SPECIMEN / Unknown 07/21/2023 Shanel Ware [facility] - [place] ORDERABLES OTHER LAB * VITAMIN B12 FOLATE PANEL (07/21/2023) Only the most recent of3 resultswithin the time period is included. Blood BLOOD SPECIMEN / Unknown 07/21/2023 Shanel Ware [facility] - [place] ORDERABLES [facility] [address] [place] [address], [place] * TSH (07/21/2023) Only the most recent of3 resultswithin the time period is included. Blood BLOOD SPECIMEN / Unknown 07/21/2023 Shanel Ware [facility] - [place] ORDER[place]LES Performing Organization Address City/[facility]/ZIP Co de Phone Number OTHER LAB * IRON + TRANSFERRIN PANEL (07/21/2023) Only the most recent of3 resultswithin the time period is included. Blood BLOOD SPECIMEN / Unknown 07/21/2023 Shanel Ware [facility] - [place] ORDER[place]LES Performing Organization Address [facility] Co de Phone Number OTHER LAB * FERRITIN (07/21/2023) Only the most recent of3 resultswithin the time period is included. Blood BLOOD SPECIMEN / Unknown 07/21/2023 Shanel Ware [facility] - [place] ORDER[place]LES Performing Organization Address City/[facility]/ZIP Co de Phone Number OTHER LAB * LIPID PROFILE (07/21/2023) Only the most recent of4 resultswithin the time period is included. Blood BLOOD SPECIMEN / Unknown 07/21/2023 Shanel Ware [facility] - [place] ORDER[place]LES OTHER LAB * LAB MISC TEST (05/12/2023) Only the most recent of2 resultswithin the time period is included. Blood BLOOD SPECIMEN / Unknown Historical Provider LAB SEND OUT * CARDIAC RHYTHM STRIP ORDER (01/19/2023 3:11 PM ASSET PROTECTION GREETER) Only the most recent of3 resultswithin the time period is included. Narrative 01/19/2023 3:11 PM ASSET PROTECTION GREETER Ordered by an unspecified provider. Scanned Document CARDIAC SERVICES ORD ERABLES * APHERESIS/TRANSFUSION ORDER (01/19/2023 2:32 PM ASSET PROTECTION GREETER) Narrative 01/19/2023 2:32 PM ASSET PROTECTION GREETER Ordered by an unspecified provider. Scanned Document NURSING - VITAL SIGN S AND ASSESSMENT * GLUCOSE - POINT OF CARE (01/18/2023 11:19 AM ASSET PROTECTION GREETER) Only the most recent of4 resultswithin the time period is included. Glucose WB/POC 111 70 - 125 mg/dL 01/18/2023 11:29 AM ASSET PROTECTION GREETER [facility] Specimen Type Arterial 01/18/2023 11:29 AM ASSET PROTECTION GREETER [facility] Blood BLOOD SPECIMEN / Unknown 01/18/2023 11:19 AM ASSET PROTECTION GREETER 01/18/2023 11:29 AM ASSET PROTECTION GREETER Eliana Enriquez MD LAB - POINT OF C ARE ORDERABLES Performing Organization Address City/[facility]/ZIP Co de Phone Number [facility] [address] * TSH REFLEX FREE T4 (01/18/2023 5:48 AM ASSET PROTECTION GREETER) Pathologist [facility] TSH 1.9327 0.35 - 4.94 uIU/mL 01/18/2023 6:46 AM ASSET PROTECTION GREETER [facility] Comment:TSH Normal, Reflex F ree T4 Not Performed. Blood BLOOD SPECIMEN / Unknown Lab Venipuncture / Unknown 01/18/2023 5:48 AM ASSET PROTECTION GREETER 01/18/2023 6:03 AM ASSET PROTECTION GREETER Nicolette OVIEDO LAB - CHEMISTRY ORDERABLES Performing Organization Address City/[facility]/ZIP Co de Phone Number [facility] [address] * HEMOGLOBIN A1C (01/18/2023 5:48 AM ASSET PROTECTION GREETER) Only the most recent of2 resultswithin the time period is included. Hemoglobin A1c 5.1 4.2 - 5.6 % 01/18/2023 6:13 AM ASSET PROTECTION GREETER [facility] Estimated Average Glucose 100 mg/dL 01/18/2023 6:13 AM ASSET PROTECTION GREETER [facility] Blood BLOOD SPECIMEN / Unknown Lab Venipuncture / Unknown 01/18/2023 5:48 AM ASSET PROTECTION GREETER 01/18/2023 6:03 AM ASSET PROTECTION GREETER Narrative [facility] - 01/18/2023 6:13 AM MEMORIAL [...] LAB - CHEMISTRY ORDERABLES Performing Organization Address City/State/[facility] Co de Phone Number [facility] [address] * GROSS + MICRO EXAM (ILL) (01/17/2023 10:44 AM ASSET PROTECTION GREETER) Only the most recent of3 resultswithin the time period is included. Case Report Surgical Pathology Report ? Case: [id number] ? Authorizing Provider: ??Eliana Enriquez MD ??Collected: ? 01/17/2023 10:44 AM ? Ordering Location: ? [facility] ? Received: ?01/18/2023 09:13 AM ? Pathologist: ? Dwight Mendez MD ? Specimen: ?Stomach Resect Sub, Stomach Remnants - Sleeve Gastrectomy ? 01/21/2023 12:25 PM [facility] Final Diagnosis Stomach, partial resection: Chronic gastritis with intestinal metaplasia, negative for Helicobacter. Comment: Helicobacter pylori IHC stain is negative. 01/21/2023 12:25 PM [facility] Microscopic Description and Comment Microscopic examination is performed and substantiates the above diagnosis. 01/21/2023 12:25 PM [facility] Gross Description The requisition and specimen(s) [...] identified. The wall thickness is 0.1-0.2 cm. Textile Stylist sections are submitted in cassettes A1-A2 with sections subjacent to the staple line in A1. AW 01/21/2023 12:25 PM [facility] Pathologist Location at [facility] 01/21/2023 12:25 PM [facility] Disclaimer The performance characteristics of all immunohistochemical and indirect immunofluorescence stains (if any) cited in this report were determined by the Histopathology Laboratory of [facility]. Some of these tests were developed [...] H&E slides and special stains prepared at [facility], [place]. [address] (CLIA# [id number]) unless otherwise specified. This case was interpreted by the [facility] Department of Pathology. When applicable, select reference laboratory testing is performed at the [facility], [address] [place] [address]. 01/21/2023 12:25 PM [facility] Embedded Images 01/21/2023 12:25 PM [facility] Pathology/Cytolo gy SPECIMEN FROM STOMACH OBTAINED BY PARTIAL GASTRECTOMY / Unknown 01/17/2023 10:44 AM ASSET PROTECTION GREETER 01/18/2023 9:13 AM ASSET PROTECTION GREETER Comment:Pre-op diagnosis: Morbid obesity (CMS/HCC) [E66.01] Eliana Enriquez MD LAB - PATHOLOGY/ CYTOLOGY ORDERABLES Performing Organization Address City/State/[facility] Co de Phone Number [facility] [address] * ETT LINE PERFORMABLE (01/17/2023 10:13 AM ASSET PROTECTION GREETER) Narrative Danny Wilkins APRN-[facility] - 01/17/2023 10:13 AM ASSET PROTECTION GREETER Danny Wilkins APRN-CRNA ? 01/17/2023 10:14 AM Endotracheal Tube Placement: ? Patient Location: OR. Intubation Event Date/Time: ??01/17/2023 9:30 AM Procedure: intubation ([id number]). Procedure Section: ?? Sedation: under general anesthesia. [...] * BLOOD TYPE VERIFICATION (01/10/2023 12:01 PM ASSET PROTECTION GREETER) ABO Rh A POS 01/10/2023 12:51 PM ASSET PROTECTION GREETER [facility] Blood Bank BLOOD SPECIMEN / Unknown Lab Venipuncture / Unknown 01/10/2023 12:01 PM ASSET PROTECTION GREETER 01/10/2023 12:05 PM ASSET PROTECTION GREETER Eliana Enriquez MD LAB - BLOOD BANK ORDERABLES [facility] [address] * TYPE + SCREEN PANEL (01/10/2023 11:45 AM ASSET PROTECTION GREETER) ABO Rh A POS 01/10/2023 12:50 PM ASSET PROTECTION GREETER [facility] Antibody Screen NEG 12:50 PM ASSET PROTECTION GREETER [facility] Blood Bank BLOOD SPECIMEN / Unknown Lab Venipuncture / Unknown 01/10/2023 11:45 AM ASSET PROTECTION GREETER 01/10/2023 11:48 AM ASSET PROTECTION GREETER Gabbie Contreras MD LAB - BLOOD BA NK ORDERABLES [facility] [address] * PT PTT PANEL (09/07/2022) Blood BLOOD SPECIMEN / Unknown 09/07/2022 Anusha Campa APRN-[facility] - COAGULATIO N ORDERABLES OTHER LAB * XR CHEST 2VW (09/07/2022) Anatomical Region Laterality Modality Chest Other Anusha Campa APRN-[facility] DIAGNOSTIC IMAGI NG ORDERABLES * EKG 12-LEAD (09/07/2022) Anusha Campa ED TRANSPORTER-[facility] ECG ORDERABLES Care Teams Senior Technical Specialist Relationship Specialty Start Date End Date Betty Rodriguez MD [address] [place] [id number] PCP - General Internal Medicine 09/02/22
--- OUTSIDE RECORDS SUMMARY | 2024-03-13 10:58 | XMS_ITS | Referral Summary ---
Author Organization [facility] Address [address] [place] [address] Care Team Providers Care Lottery Clerk Name Role Phone Betty Rodriguez MD Primary Care Provider [phone] Source Comments [facility],non-[facility] Affiliates and Associated Physician Practices is amultiple site organization consisting of ambulatory clinics and hospital sitesin [place], [place], [place] and [place]. This disclosure is being madepursuant to the Care Everywhere program and may not contain all information available regarding this patient. Last updated 17.[facility] Encounters Date Type Department Care Team Description 01/27/2024 9:00 AM HEALTH PROGRAM ANALYST Office Visit [facility] Management Services [address] [place] [address] Anusha Campa, WAREHOUSEMAN-INSURANCE VERIFICATION REPRESENTATIVE Overweight with body mass index (BMI) of 26 to 26.9 in adult (Primary Dx); S/P laparoscopic sleeve gastrectomy; Thyroid 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 abnormal; Vitamin D deficiency; Elevated liver enzymes; Elevated hemoglobin (HCC); Hypercholesteremia 01/27/2024 9:30 AM HEALTH PROGRAM ANALYST Clinical Support [facility] [address] [place] [address] S/P laparoscopic sleeve gastrectomy from Last 3 Months Allergies No known [...] Comments Blood Pressure 130/64 01/27/2024 8:00 AM HEALTH PROGRAM ANALYST Pulse 64 01/27/2024 8:00 AM HEALTH PROGRAM ANALYST Temperature 36.3 ??C (97.3 ??F) 01/27/2024 8:00 AM CS T Respiratory Rate 18 01/27/2024 8:00 AM HEALTH PROGRAM ANALYST Oxygen Saturation 98% 01/27/2024 8:00 AM HEALTH PROGRAM ANALYST Inhaled Oxygen Concentration 21% 01/17/2023 1 1:15 PM HEALTH PROGRAM ANALYST Weight 88.7 kg (195 lb 8 oz) 01/27/2024 9:00 AM HEALTH PROGRAM ANALYST Height 182 cm (5' 11.65 ) 01/27/2024 9:00 AM HEALTH PROGRAM ANALYST Body Mass Index 26.77 01/27/2024 9:00 AM HEALTH PROGRAM ANALYST Functional Status Functional Status Response Date of [...] 04/25/2024 9:44 AM CDT Hospital Encounter [facility] [address] [place] [address] Eliana Enriquez MD [address] [place] [phone] Surgery General 04/25/2024 9:44 AM CDT - 04/25/2024 10:10 AM CDT Surgery [facility] [address] [place] [address] Eliana Enriquez MD [address] [place] [phone] ESOPHAGOGASTRODUODENOSCOPY WITH BIOPSY 05/03/2024 9:30 AM CDT Office Visit [facility] [address] [place] [phone] Eliana Enriquez MD [address] [place] [address] 07/19/2024 9:00 AM CDT Office Visit [facility] [address] [place] [phone] Anusha Campa, WAREHOUSEMAN-INSURANCE VERIFICATION REPRESENTATIVE [address] [place] [address] 01/18/2025 9:00 AM HEALTH PROGRAM ANALYST Clinical Support [facility] Health Weight Management Services [address] [place] [address] 01/18/2025 9:30 AM HEALTH PROGRAM ANALYST Office Visit [facility] Health Weight Management Services [address] [place] [address] Anusha Campa, WAREHOUSEMAN-INSURANCE VERIFICATION REPRESENTATIVE [address] [place] [address] Scheduled Procedures Name Priority Associated Diagnoses Date/Ti me ESOPHAGOGASTRODUODENOSCOPY ( EGD) BIOPSY Status post bariatric surgery 04/25/2024 9:44 AM CDT Medical Devices Implanted Type Area Information Technology Intern Device Identifier Shelf Expiration Date Model / Serial / Lot Kit Tissue Clsr Duo Tssl 1 Prefl Syr - [id number] Implanted:Qty: 1 on 01/17/2023 by Eliana Enriquez MD at [facility] [employer] 09/13/2024 [id number] / [id number] / [id number] Procedures Procedure Name Priority Date/Time Associated Diagnosis Comments COMPREHENSIVE METABOLIC PANEL Routine 07/21/2023 S/P laparoscopic sleeve gastrectomy Thyroid 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 abnormal LIPID PROFILE Routine 07/21/2023 S/P laparoscopic sleeve gastrectomy Thyroid 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 abnormal from Last 3 Months or Most Recently Relevant to Health Maintenance Results * COMPREHENSIVE METABOLIC PANEL (07/21/2023) Blood BLOOD SPECIMEN / Unknown 07/21/2023 Shanel Ware APRN-INSURANCE VERIFICATION REPRESENTATIVE LAB - [facility] OTHER LAB * LIPID PROFILE (07/21/2023) Blood BLOOD SPECIMEN / Unknown 07/21/2023 Shanel Ware APRN-INSURANCE VERIFICATION REPRESENTATIVE LAB - [facility] OTHER LAB from Last 3 Months or Most Recently Relevant to Health Maintenance Advance Directives Documents on File Type Date Recorded Patient Catastrophe Claims Supervisor Expl 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 Power of Attorne y for Healthcare * Full Code (Latest Code Status on File) Date Activated Date Inactivated Comments 01/17/2023 12:21 PM 01/18/2023 3:25 PM Care Teams Lottery Clerk Relationship Specialty Start Date End Date Betty Rodriguez MD [address] [place] [phone] PCP - General Internal Medicine 09/02/22
--- OUTSIDE RECORDS SUMMARY | 2024-03-13 10:58 | XMS_ITS | Clinical Summary ---
Author Organization [facility] Address [address] [facility] [place] [address] Care Team Providers Care Plate Stacker Name Role Phone Betty Rodriguez MD Primary Care Provider [phone] Source Comments [facility],non-owned Affiliates and Associated Physician Practices is amultiple site organization consisting of ambulatory clinics and hospital sitesin [place], [place], [place] and [place]. This disclosure is being madepursuant to the Care Everywhere program and may not contain all information available regarding this patient. Last updated 17.[facility] Allergies No known active allergies Medications [...] Department Care Team Description 01/27/2024 9:30 AM CASE FILLER Clinical Support [facility] Weight Management Services [address] [place] [address] S/P laparoscopic sleeve gastrectomy 01/27/2024 9:00 AM CASE FILLER Office Visit [facility] Health Weight Management Services [address] [place] [address] Anusha Campa, KILN PULLER-EMERGENCY VETERINARY ASSISTANT Overweight with body mass index (BMI) of 26 to 26.9 in adult (Primary Dx); S/P laparoscopic sleeve gastrectomy; Thyroid 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 abnormal; Vitamin D deficiency; Elevated liver enzymes; Elevated hemoglobin (HCC); Hypercholesteremia from Last 3 Months Family History Medical [...] Comments Blood Pressure 130/64 01/27/2024 8:00 AM CASE FILLER Pulse 64 01/27/2024 8:00 AM CASE FILLER Temperature 36.3 ??C (97.3 ??F) 01/27/2024 8:00 AM CS T Respiratory Rate 18 01/27/2024 8:00 AM CASE FILLER Oxygen Saturation 98% 01/27/2024 8:00 AM CASE FILLER Inhaled Oxygen Concentration 21% 01/17/2023 1 1:15 PM CASE FILLER Weight 88.7 kg (195 lb 8 oz) 01/27/2024 9:00 AM CASE FILLER Height 182 cm (5' 11.65 ) 01/27/2024 9:00 AM CASE FILLER Body Mass Index 26.77 01/27/2024 9:00 AM CASE FILLER Plan of Treatment Upcoming Encounters Date Type Department Care Team (Latest Contact Info) Description 04/25/2024 9:44 AM CDT Hospital Encounter [facility] [address] [place] [address] Eliana Enriquez MD [address] [place] [phone] Surgery General 04/25/2024 9:44 AM CDT - 04/25/2024 10:10 AM CDT Surgery [facility] [address] [place] [address] Eliana Enriquez MD [address] [place] [phone] ESOPHAGOGASTRODUODENOSCOPY WITH BIOPSY 05/03/2024 9:30 AM CDT Office Visit [facility] Weight Management Services [address] [place] [phone] Eliana Enriquez MD [address] [place] [address] 07/19/2024 9:00 AM CDT Office Visit [facility] Health Weight Management Services [address] [place] [address] Anusha Campa, KILN PULLER-EMERGENCY VETERINARY ASSISTANT [address] [place] [address] 01/18/2025 9:00 AM CASE FILLER Clinical Support [facility] Health Weight Management Services [address] [place] [address] 01/18/2025 9:30 AM CASE FILLER Office Visit [facility] Health Weight Management Services [address] [place] [address] Anusha Campa, KILN PULLER-EMERGENCY VETERINARY ASSISTANT [address] [place] [address] Scheduled Procedures Name Priority Associated Diagnoses Date/Ti [...] 01/30/1971 DTAP/TDAP/TD VACCINES (1 - Tdap) 02/04/1972 PNEUMOCOCCAL VACCINE 50+ (1 of 1 - PCV) 2003 ZOSTER VACCINE (1 of 2) 2003 COVID-19 VACCINE (1 - season) 2023 INFLUENZA VACCINE (#1) 2023 11/22/2022 DEPRESSION SCREENING 02/15/2024 05/11/2023 MEDICARE AWV ? CALENDAR YEAR 2024 COLON MONITORING 11/12/2025 11/12/2022 Colorectal Cancer Screening 11/12/2025 SCREENING FOR DIABETES 07/20/2026 , 05/12/2023, 01/18/2023, Additional history exists Respiratory Syncytial Virus (RSV) Vaccine Pt: or over 60 yrs (1 - 1-dose 75+ series) 02/04/2028 LIPID TESTING 07/20/2028 07/21/2023, 04/15, 01/18/2023, Additional history exists COLONOSCOPY - COLON CA SCREENING 11/12/2032 11/12/2022 HEPATITIS B VACCINE Aged Out No longe r eligible based on patient's age to complete this topic HIB VACCINE Aged Out No longer eligi ble based on patient's age to complete this topic HPV VACCINE Aged Out No longer eligi ble based on patient's age to complete this topic MENINGOCOCCAL (Group B) VACCINE Aged Out No longer eligible based on patient's age to complete this topic MENINGOCOCCAL VACCINE Aged Out No nicol sheldon eligible based on patient's age to complete this topic Medical Devices Implanted Type Area Product Development Manager Device Identifier Shelf Expiration Date Model / Serial / Lot Kit Tissue Clsr Duo Tssl 1 Prefl Syr - [id number] Implanted:Qty: 1 on 01/17/2023 by Eliana Enriquez MD at [facility] 09/13/2024 [id number] / [id number] / [id number] Procedures Procedure Name Priority Date/Time Associated Diagnosis Comments COMPREHENSIVE METABOLIC PANEL Routine 07/21/2023 S/P laparoscopic sleeve gastrectomy Thyroid 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 abnormal LIPID PROFILE Routine 07/21/2023 S/P laparoscopic sleeve gastrectomy Thyroid 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 abnormal from Last 3 Months or Most Recently Relevant to Health Maintenance Results * COMPREHENSIVE METABOLIC PANEL (07/21/2023) Blood BLOOD SPECIMEN / Unknown 07/21/2023 Shanel Ware APRN-EMERGENCY VETERINARY ASSISTANT LAB - [facility] OTHER LAB * LIPID PROFILE (07/21/2023) Blood BLOOD SPECIMEN / Unknown 07/21/2023 Shanel Ware KILN PULLER-EMERGENCY VETERINARY ASSISTANT LAB - [place] OTHER LAB from Last 3 Months or Most Recently Relevant to Health Maintenance Advance Directives Documents on File Type Date Recorded Patient Slide Maker Expl 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 Power of Attorne y for Healthcare * Full Code (Latest Code Status on File) Date Activated Date Inactivated Comments 01/17/2023 12:21 PM 01/18/2023 3:25 PM Care Teams Plate Stacker Relationship Specialty Start Date End Date Betty Rodriguez MD [address] [place] [phone] PCP - General Internal Medicine 09/02/22
[2024-03-13 11:28] LABS: Erythrocyte Sedimentation Rate 35 mm/hr (0-20)
[2024-03-13 12:13] LABS: Toxigenic C. Diff NEGATIVE (NEGATIVE)
== END 2024-03-13 10:08 | disposition home or self-care (01) ==
PROVIDERS: PCP Internal Medicine; Visit Provider Nurse Practitioner
DX: R19.7 Diarrhea, unspecified (principal); K51.90 Ulcerative colitis, unspecified, without complications
CPT/HCPCS: 36415; 83993; 85652; 86140; 87493

== ENCOUNTER 2024-03-21 20:13 | Emergency (ER) | payer MEDICARE, SELFPAY ==
--- OUTSIDE RECORDS SUMMARY | 2024-03-21 20:16 | XMS_ITS | CONTINUITY OF CARE DOCUMENT ---
Author Name maris pollock Address Unknown Organization [facility] Address [address] [place] [address] Phone [phone] Care Team Providers Care Plastic Shaper Name Role Phone Fuentes PARRISH, Breann Unavailable TRINIDAD PARRISH, SAVI Encinas Unavailable [phone] FRANCES PARRISH, WESTON Unavailable [phone] INSURANCE PROVIDERS Payer name Policy type / Coverage type [place] red republican ID [id number] OPEN ACCESS Other [id number]
--- OUTSIDE RECORDS SUMMARY | 2024-03-21 20:16 | XMS_ITS | Patient Health Summary ---
Author Organization [facility] Address [address] [place] [address] Care Team Providers Care Cell Operator Name Role Phone Betty Rodriguez MD Primary Care Provider Note from [facility],non-owned Affiliates and Associated Physician Practices is amultiple site organization consisting of ambulatory clinics and hospital sitesin [place], [place], [place] and [place]. This disclosure is being madepursuant to the Care Everywhere program and may not contain all information available regarding this patient. Last updated 17.[facility] Allergies No known active allergies Medications [...] Comments Blood Pressure 130/64 01/27/2024 8:00 AM CAGE CLERK Pulse 64 01/27/2024 8:00 AM CAGE CLERK Temperature 36.3 C (97.3 F) 01/27/2024 8:00 AM CAGE CLERK Respiratory Rate 18 01/27/2024 8:00 AM CAGE CLERK Oxygen Saturation 98% 01/27/2024 8:00 AM CAGE CLERK Inhaled Oxygen Concentration 21% 01/17/2023 1 1:15 PM CAGE CLERK Weight 88.7 kg (195 lb 8 oz) 01/27/2024 9:00 AM CAGE CLERK Height 182 cm (5' 11.65 ) 01/27/2024 9:00 AM CAGE CLERK Body Mass Index 26.77 01/27/2024 9:00 AM CAGE CLERK Medical Devices Implanted Type Area Elderly Companion Device Identifier Shelf Expiration Date Model / Serial / Lot Kit Tissue Clsr Duo Tssl 1 Prefl Syr - [id number] Implanted:Qty: 1 on 01/17/2023 by Eliana Enriquez MD at [facility] 09/13/2024 [id number] / [id number] / [id number] Procedures * VITAMIN B1(Performed 07/21/2023) Performed for [...] BLOOD SPECIMEN / Unknown 07/21/2023 Shanel Ware [email or web address] LAB - [place] ORDERABLES Performing Organization Address City/[facility]/ZIP Co de Phone Number OTHER LAB * VITAMIN B1 (07/21/2023) Only the most recent of3 resultswithin the time period is included. Blood BLOOD SPECIMEN / Unknown 07/21/2023 Shanel Ware [email or web address] LAB - [employer]RY ORDERABLES Performing Organization Address City/[facility]/ZIP Co de Phone Number OTHER LAB * VITAMIN D 25-HYDROXY (07/21/2023) Only the most recent of3 resultswithin the time period is included. Blood BLOOD SPECIMEN / Unknown 07/21/2023 Shanel Ware CFO [email or web address] LAB - [place] JUST[place] ORDERABLES [facility] [address] [place] [address], [facility] * CBC WITH DIFFERENTIAL (07/21/2023) Only the most recent of7 resultswithin the time period is included. Blood BLOOD SPECIMEN / Unknown 07/21/2023 Shanel Ware APRN-BUNDLE PERSON LAB - HEM ATOLOGY ORDERABLES OTHER LAB * COMPREHENSIVE METABOLIC PANEL (07/21/2023) Only the most recent of5 resultswithin the time period is included. Blood BLOOD SPECIMEN / Unknown 07/21/2023 Shanel Ware APRN-BUNDLE PERSON LAB - [place] ORDERABLES Performing Organization Address [facility] Co de Phone Number OTHER LAB * PHOSPHORUS BLOOD (07/21/2023) Only the most recent of4 resultswithin the time period is included. Blood BLOOD SPECIMEN / Unknown 07/21/2023 Shanel Ware APRN-BUNDLE PERSON LAB - [place] ORDERABLES Performing Organization Address [facility] Co de Phone Number OTHER LAB * MAGNESIUM BLOOD (07/21/2023) Only the most recent of6 resultswithin the time period is included. Blood BLOOD SPECIMEN / Unknown 07/21/2023 Shanel Ware APRN-BUNDLE PERSON LAB - [place] ORDERABLES Performing Organization Address City/[facility] Co de Phone Number OTHER LAB * VITAMIN B12 FOLATE PANEL (07/21/2023) Only the most recent of3 resultswithin the time period is included. Blood BLOOD SPECIMEN / Unknown 07/21/2023 Shanel Ware APRN-BUNDLE PERSON LAB - [place] ORDERABLES [facility] [address] [place], [place] [address] * TSH (07/21/2023) Only the most recent of3 resultswithin the time period is included. Blood BLOOD SPECIMEN / Unknown 07/21/2023 Shanel Ware APRN-BUNDLE PERSON LAB - [place] ORDERABLES Performing Organization Address [facility] Co de Phone Number OTHER LAB * IRON + TRANSFERRIN PANEL (07/21/2023) Only the most recent of3 resultswithin the time period is included. Blood BLOOD SPECIMEN / Unknown 07/21/2023 Shanel Ware APRN-BUNDLE PERSON LAB - [place] ORDERABLES Performing Organization Address [facility] Co de Phone Number OTHER LAB * FERRITIN (07/21/2023) Only the most recent of3 resultswithin the time period is included. Blood BLOOD SPECIMEN / Unknown 07/21/2023 Shanel Ware APRN-BUNDLE PERSON LAB - [place] ORDERABLES Performing Organization Address [facility] Co de Phone Number OTHER LAB * LIPID PROFILE (07/21/2023) Only the most recent of4 resultswithin the time period is included. Blood BLOOD SPECIMEN / Unknown 07/21/2023 Shanel Ware APRN-BUNDLE PERSON LAB - [place] ORDERABLES Performing Organization Address City/[facility] Co de Phone Number OTHER LAB * LAB MISC TEST (05/12/2023) Only the most recent of2 resultswithin the time period is included. Blood BLOOD SPECIMEN / Unknown Historical Provider MD LAB SEND OUT * CARDIAC RHYTHM STRIP ORDER (01/19/2023 3:11 PM CAGE CLERK) Only the most recent of3 resultswithin the time period is included. Narrative 01/19/2023 3:11 PM CAGE CLERK Ordered by an unspecified provider. Scanned Document CARDIAC SERVICES ORD ERABLES * APHERESIS/TRANSFUSION ORDER (01/19/2023 2:32 PM CAGE CLERK) Narrative 01/19/2023 2:32 PM CAGE CLERK Ordered by an unspecified provider. Scanned Document NURSING - VITAL SIGN S AND ASSESSMENT * GLUCOSE - POINT OF CARE (01/18/2023 11:19 AM CAGE CLERK) Only the most recent of4 resultswithin the time period is included. Glucose WB/POC 111 70 - 125 mg/dL 01/18/2023 11:29 AM CAGE CLERK [facility] Specimen Type Arterial 01/18/2023 11:29 AM CAGE CLERK [facility] Blood BLOOD SPECIMEN / Unknown 01/18/2023 11:19 AM CAGE CLERK 01/18/2023 11:29 AM CAGE CLERK Eliana Enriquez MD LAB - POINT OF C ARE ORDERABLES Performing Organization Address City/[facility]/ZIP Co de Phone Number [facility] [address] [place] [address] * TSH REFLEX FREE T4 (01/18/2023 5:48 AM CAGE CLERK) Pathologist [facility] TSH 1.9327 0.35 - 4.94 uIU/mL 01/18/2023 6:46 AM CAGE CLERK [facility] Comment:TSH Normal, Reflex F ree T4 Not Performed. Blood BLOOD SPECIMEN / Unknown Lab Venipuncture / Unknown 01/18/2023 5:48 AM CAGE CLERK 01/18/2023 6:03 AM CAGE CLERK Nicolette OVIEDO LAB - CHEMISTRY ORDERABLES Performing Organization Address City/[facility]/ZIP Co de Phone Number [facility] [address] * HEMOGLOBIN A1C (01/18/2023 5:48 AM CAGE CLERK) Only the most recent of2 resultswithin the time period is included. Hemoglobin A1c 5.1 4.2 - 5.6 % 01/18/2023 6:13 AM CAGE CLERK [facility] Estimated Average Glucose 100 mg/dL 01/18/2023 6:13 AM [facility] Blood BLOOD SPECIMEN / Unknown Lab Venipuncture / Unknown 01/18/2023 5:48 AM CAGE CLERK 01/18/2023 6:03 AM CAGE CLERK Narrative [facility] - 01/18/2023 6:13 AM CAGE CLERK HbA1c Interpretation: Normal: < 5.7% Pre-diabetes: 5.7-6.4% Diabetes: Equal to or greater than 6.5% Test results diagnostic of diabetes should be repeated for confirmation. Treatment target values recommended by ADA and other clinical organizations should be used to evaluate metabolic control in patients. This test should not replace glucose testing for patients with Type 1 diabetes, pediatric patients, or women. Falsely low HbA1c results may be observed in patients with clinical conditions that shorten erythrocyte life span or decrease mean erythrocyte age such as the presence of unstable hemoglobin variants, elevated hemoglobin F level or other causes of hemolytic anemia. HbA1c may not accurately reflect glycemic control when clinical conditions that affect erythrocyte survival are present. Severe Iron deficiency anemia may yield falsely high results. Hemoglobin A1c assay should not be used to diagnose or monitor diabetes in patients with malignancy, recent blood transfusion, chronic kidney or liver disease. This method may yield falsely low results when hemoglobin (HbF) exceeds 5% in the specimen. The [place] Alinity assay for the measurement of HbA1c is a National Glycohemoglobin Standardization Program (NGSP) certified method. Eliana Enriquez MD LAB - CHEMISTRY ORDERABLES [facility] [address] * GROSS + MICRO EXAM (ILL) (01/17/2023 10:44 AM CAGE CLERK) Only the most recent of3 resultswithin the time period is included. Case Report Surgical Pathology Report Case: [id number] Authorizing Provider: Eliana Enriquez MD Collected: 01/17/2023 10:44 AM Ordering Location: [facility] Received: 01/18/2023 09:13 AM Pathologist: Dwight Mendez MD Specimen: Stomach Resect Sub, Stomach Remnants - Sleeve Gastrectomy 01/21/2023 12:25 PM [facility] Final Diagnosis Stomach, partial resection: Chronic gastritis with intestinal metaplasia, negative for Helicobacter. Comment: Helicobacter pylori IHC stain is negative. 01/21/2023 12:25 PM [facility] Microscopic Description and Comment Microscopic examination is performed and substantiates the above diagnosis. 01/21/2023 12:25 PM [facility] Gross Description The requisition [...] identified. The wall thickness is 0.1-0.2 cm. Sourcing Coordinator sections are submitted in cassettes A1-A2 with sections subjacent to the staple line in A1. AW 01/21/2023 12:25 PM [facility] Pathologist Location at [facility] 01/21/2023 12:25 PM [facility] Disclaimer The performance characteristics of all immunohistochemical and indirect immunofluorescence stains (if any) cited in this report were determined by the Histopathology Laboratory of [facility]. Some of these tests were developed [...] H&E slides and special stains prepared at [facility], [place]. [address] (CLIA# [id number]) unless otherwise specified. This case was interpreted by the [facility] Department of Pathology. When applicable, select reference laboratory testing is performed at the [facility], [address] [place] [address]. 01/21/2023 12:25 PM CAGE CLERK [facility] Embedded Images 01/21/2023 12:25 PM [facility] Pathology/Cytolo gy SPECIMEN FROM STOMACH OBTAINED BY PARTIAL GASTRECTOMY / Unknown 01/17/2023 10:44 AM CAGE CLERK 01/18/2023 9:13 AM CAGE CLERK Comment:Pre-op diagnosis: Morbid obesity (CMS/HCC) [E66.01] Eliana Enriquez MD LAB - PATHOLOGY/ CYTOLOGY ORDERABLES [facility] [address] * ETT LINE PERFORMABLE (01/17/2023 10:13 AM CAGE CLERK) Narrative Danny Wilkins APRN-CRNA - 01/17/2023 10:13 AM CAGE CLERK Danny Wilkins APRN-CRNA 01/17/2023 10:14 AM Endotracheal Tube Placement: Patient Location: OR. Intubation Event Date/Time: 01/17/2023 9:30 AM Procedure: intubation (50954). Procedure Section: Sedation: under general anesthesia. Indications [...] the procedure Provider #1: Samantha Lucero MD. Samantha Lucero MD GENERAL ANESTHESIA O RDERABLES * US ABDOMEN LIMITED (01/11/2023) Anatomical Region Laterality Modality Abdomen Ultrasound Shanel Ware CFO CONTROLLER-BUNDLE PERSON US ORDERA BLES * US ABDOMEN COMPLETE (01/11/2023) Anatomical Region Laterality Modality Abdomen Ultrasound Historical Provider US ORDERABLES * BLOOD TYPE VERIFICATION (01/10/2023 12:01 PM CAGE CLERK) ABO Rh A POS 01/10/2023 12:51 PM CAGE CLERK [facility] Blood Bank BLOOD SPECIMEN / Unknown Lab Venipuncture / Unknown 01/10/2023 12:01 PM CAGE CLERK 01/10/2023 12:05 PM CAGE CLERK Eliana Enriquez MD LAB - BLOOD BANK ORDERABLES Performing Organization Address City/[facility] Co de Phone Number [facility] [address] [place] [address] * TYPE + SCREEN PANEL (01/10/2023 11:45 AM CAGE CLERK) ABO Rh A POS 01/10/2023 12:50 PM CAGE CLERK [facility] Antibody Screen NEG 12:50 PM CAGE CLERK [facility] Blood Bank BLOOD SPECIMEN / Unknown Lab Venipuncture / Unknown 01/10/2023 11:45 AM CAGE CLERK 01/10/2023 11:48 AM CAGE CLERK Gabbie Contreras MD LAB - BLOOD BA NK ORDERABLES Performing Organization Address City/[facility]/ZIP Co de Phone Number [facility] [address] [place] [address] * PT PTT PANEL (09/07/2022) Blood BLOOD SPECIMEN / Unknown 09/07/2022 Anusha Campa CFO CONTROLLER-BUNDLE PERSON LAB - COAGULATIO N ORDERABLES Performing Organization Address City/[facility]/ZIP Co de Phone Number OTHER LAB * XR CHEST 2VW (09/07/2022) Anatomical Region Laterality Modality Chest Other Anusha Campa APRN-AMADOU DIAGNOSTIC IMAGI NG ORDERABLES * EKG 12-LEAD (09/07/2022) Anusha Campa APRN-BUNDLE PERSON ECG ORDERABLES Care Teams Cell Operator Relationship Specialty Start Date End Date Betty Rodriguez MD [address] [place] [address] PCP - General Internal Medicine 09/02/22
--- OUTSIDE RECORDS SUMMARY | 2024-03-21 20:16 | XMS_ITS | Clinical Summary ---
Author Organization [facility] Address [address] [place] [address] Care Team Providers Care Putty Maker Name Role Phone Betty Rodriguez MD Primary Care Provider [phone] Source Comments [facility],non-owned Affiliates and Associated Physician Practices is amultiple site organization consisting of ambulatory clinics and hospital sitesin [place], [place], [place] and [place]. This disclosure is being madepursuant to the Care Everywhere program and may not contain all information available regarding this patient. Last updated 17.[facility] Allergies No known active allergies Medications [...] Department Care Team Description 01/27/2024 9:30 AM INSPECTOR ALUMINUM BOAT Clinical Support [facility] [address] [place] [address] S/P laparoscopic sleeve gastrectomy 01/27/2024 9:00 AM INSPECTOR ALUMINUM BOAT Office Visit [facility] [address] [place] [phone] Anusha Campa, RASPBERRY CHECKER-AMADOU Overweight with body mass index (BMI) of [...] Comments Blood Pressure 130/64 01/27/2024 8:00 AM INSPECTOR ALUMINUM BOAT Pulse 64 01/27/2024 8:00 AM INSPECTOR ALUMINUM BOAT Temperature 36.3 C (97.3 F) 01/27/2024 8:00 AM INSPECTOR ALUMINUM BOAT Respiratory Rate 18 01/27/2024 8:00 AM INSPECTOR ALUMINUM BOAT Oxygen Saturation 98% 01/27/2024 8:00 AM INSPECTOR ALUMINUM BOAT Inhaled Oxygen Concentration 21% 01/17/2023 1 1:15 PM INSPECTOR ALUMINUM BOAT Weight 88.7 kg (195 lb 8 oz) 01/27/2024 9:00 AM INSPECTOR ALUMINUM BOAT Height 182 cm (5' 11.65 ) 01/27/2024 9:00 AM INSPECTOR ALUMINUM BOAT Body Mass Index 26.77 01/27/2024 9:00 AM INSPECTOR ALUMINUM BOAT Plan of Treatment Upcoming Encounters Date Type Department Care Team (Latest Contact Info) Description 04/25/2024 9:44 AM CDT Hospital Encounter [facility] [address] [place] [address] Eliana Enriquez MD [address] [place] [address] Surgery General 04/25/2024 9:44 AM CDT - 04/25/2024 10:10 AM CDT Surgery [facility] [address] [place] [address] Eliana Enriquez MD [address] [place] [phone] ESOPHAGOGASTRODUODENOSCOPY WITH BIOPSY 05/03/2024 9:30 AM CDT Office Visit [facility] [address] [place] [phone] Eliana Enriquez MD [address] [place] [address] 07/19/2024 9:00 AM CDT Office Visit [facility] [address] [place] [address] Anusha Campa, RASPBERRY CHECKER-MANAGER WORKERS COMPENSATION [address] [place] [address] 01/18/2025 9:00 AM INSPECTOR ALUMINUM BOAT Clinical Support [facility] [address] [place] [address] 01/18/2025 9:30 AM INSPECTOR ALUMINUM BOAT Office Visit [facility] [address] [place] [address] Anusha Campa, RASPBERRY CHECKER-MANAGER WORKERS COMPENSATION [address] [place] [address] Scheduled Procedures Name Priority Associated Diagnoses Date/Ti [...] 11/22/2022 DEPRESSION SCREENING 02/15/2024 05/11/2023 MEDICARE AWV CALENDAR YEAR 2024 COLON MONITORING 11/12/2025 11/12/2022 [...] this topic Medical Devices Implanted Type Area Die Cast Supervisor Device Identifier Shelf Expiration Date Model / Serial / Lot Kit Tissue Clsr Duo Tssl 1 Prefl Syr - [id number] Implanted:Qty: 1 on 01/17/2023 by Eliana Enriquez MD at [facility] 09/13/2024 [id number] / [id number] / [id number] Procedures Procedure Name Priority Date/Time Associated Diagnosis Comments COMPREHENSIVE METABOLIC PANEL Routine 07/21/2023 S/P laparoscopic sleeve gastrectomy Thyroid 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 abnormal LIPID PROFILE Routine 07/21/2023 S/P laparoscopic sleeve gastrectomy Thyroid 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 abnormal from Last 3 Months or Most Recently Relevant to Health Maintenance Results * COMPREHENSIVE METABOLIC PANEL (07/21/2023) Blood BLOOD SPECIMEN / Unknown 07/21/2023 Shanel Ware RASPBERRY CHECKER-MANAGER WORKERS COMPENSATION LAB - [place] ORDERABLES OTHER LAB * LIPID PROFILE (07/21/2023) Blood BLOOD SPECIMEN / Unknown 07/21/2023 Shanel Ware RASPBERRY CHECKER-MANAGER WORKERS COMPENSATION LAB - [place] ORDERABLES OTHER LAB from Last 3 Months or Most Recently Relevant to Health Maintenance Insurance Payer Benefit Plan / Group Subscriber ID Effective Dates Phone Address Type AETNA MEDICARE ADV AETNA MEDICARE ADV HMO/PPO/PFFS [id number] 2022-Pres ent [address] [place] [address] Medicare -Managed Care SELF PAY NO INSURANCE SELF PAY NO INSURANCE Effective for all dates [place], [place] Self Pay [employer] HE[employer] [facility] OA [id number] Effective for all dates [address] [place] [address] HMO [employer] HE[employer]LINK OPEN ACCESS HMO [id number] Effective for all dates [address] [place] [address] HMO Advance Directives Documents on File Type Date Recorded Patient Head Nurse Expl 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 Power of Attorne y for Healthcare * Full Code (Latest Code Status on File) Date Activated Date Inactivated Comments 01/17/2023 12:21 PM 01/18/2023 3:25 PM Care Teams Putty Maker Relationship Specialty Start Date End Date Betty Rodriguez MD [address] [place] [phone] PCP - General Internal Medicine 09/02/22
--- OUTSIDE RECORDS SUMMARY | 2024-03-21 20:16 | XMS_ITS | Referral Summary ---
Author Organization [facility] Address [address] [place] [address] Care Team Providers Care Thoracic Medicine Physician Name Role Phone Betty Rodriguez MD Primary Care Provider [phone] Source Comments [facility],non-[facility] Affiliates and Associated Physician Practices is amultiple site organization consisting of ambulatory clinics and hospital sitesin [place], [place], [place] and [place]. This disclosure is being madepursuant to the Care Everywhere program and may not contain all information available regarding this patient. Last updated 17.[facility] Encounters Date Type Department Care Team Description 01/27/2024 9:00 AM PROCUREMENT OFFICER Office Visit [facility] Services [address] [place] [address] Anusha Campa, ACCOUNT SOLUTIONS ANALYST-INTELLIGENCE OFFICER BASIC Overweight with body mass index (BMI) of 26 to 26.9 in adult (Primary Dx); S/P laparoscopic sleeve gastrectomy; Thyroid 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 abnormal; Vitamin D deficiency; Elevated liver enzymes; Elevated hemoglobin (HCC); Hypercholesteremia 01/27/2024 9:30 AM PROCUREMENT OFFICER Clinical Support [facility] [address] [place] [address] S/P laparoscopic sleeve gastrectomy from Last 3 [...] Comments Blood Pressure 130/64 01/27/2024 8:00 AM PROCUREMENT OFFICER Pulse 64 01/27/2024 8:00 AM PROCUREMENT OFFICER Temperature 36.3 C (97.3 F) 01/27/2024 8:00 AM PROCUREMENT OFFICER Respiratory Rate 18 01/27/2024 8:00 AM PROCUREMENT OFFICER Oxygen Saturation 98% 01/27/2024 8:00 AM PROCUREMENT OFFICER Inhaled Oxygen Concentration 21% 01/17/2023 1 1:15 PM PROCUREMENT OFFICER Weight 88.7 kg (195 lb 8 oz) 01/27/2024 9:00 AM PROCUREMENT OFFICER Height 182 cm (5' 11.65 ) 01/27/2024 9:00 AM PROCUREMENT OFFICER Body Mass Index 26.77 01/27/2024 9:00 AM PROCUREMENT OFFICER Functional Status Functional Status Response Date of [...] Description 04/25/2024 9:44 AM CDT Hospital Encounter [facility] [address] [place] [address] Eliana Enriquez MD [address] [place] [phone] Surgery General 04/25/2024 9:44 AM CDT - 04/25/2024 10:10 AM CDT Surgery [facility] [address] [place] [address] Eliana Enriquez MD [address] [place] [phone] ESOPHAGOGASTRODUODENOSCOPY WITH BIOPSY 05/03/2024 9:30 AM CDT Office Visit [facility] [address] [place] [address] Eliana Enriquez MD [address] [place] [phone] 07/19/2024 9:00 AM CDT Office Visit [facility] Health Weight Management Services [address] [place] [address] Anusha Campa APRN-INTELLIGENCE OFFICER BASIC [address] [place] [address] 01/18/2025 9:00 AM PROCUREMENT OFFICER Clinical Support [facility] Health Weight Management Services [address] [place] [address] 01/18/2025 9:30 AM PROCUREMENT OFFICER Office Visit [facility] Health Weight Management Services [address] [place] [address] Anusha Campa, ACCOUNT SOLUTIONS ANALYST-INTELLIGENCE OFFICER BASIC [address] [place] [address] Scheduled Procedures Name Priority Associated Diagnoses Date/Ti me ESOPHAGOGASTRODUODENOSCOPY ( EGD) BIOPSY Status post bariatric surgery 04/25/2024 9:44 AM CDT Medical Devices Implanted Type Area Payroll Manager Device Identifier Shelf Expiration Date Model / Serial / Lot Kit Tissue Clsr Duo Tssl 1 Prefl Syr - [id number] Implanted:Qty: 1 on 01/17/2023 by Eliana Enriquez MD at [facility] [employer] 09/13/2024 [id number] / [id number] / [id number] Procedures Procedure Name Priority Date/Time Associated Diagnosis Comments COMPREHENSIVE METABOLIC PANEL Routine 07/21/2023 S/P laparoscopic sleeve gastrectomy Thyroid 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 abnormal LIPID PROFILE Routine 07/21/2023 S/P laparoscopic sleeve gastrectomy Thyroid 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 abnormal from Last 3 Months or Most Recently Relevant to Health Maintenance Results * COMPREHENSIVE METABOLIC PANEL (07/21/2023) Blood BLOOD SPECIMEN / Unknown 07/21/2023 Shanel Ware APRN-INTELLIGENCE OFFICER BASIC LAB - [place] ORDERABLES OTHER LAB * LIPID PROFILE (07/21/2023) Blood BLOOD SPECIMEN / Unknown 07/21/2023 Shanel Ware APRN-INTELLIGENCE OFFICER BASIC LAB - [place] ORDERABLES OTHER LAB from Last 3 Months or Most Recently Relevant to Health Maintenance Advance Directives Documents on File Type Date Recorded Patient Transportation Worker Expl 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 Power of Attorne y for Healthcare * Full Code (Latest Code Status on File) Date Activated Date Inactivated Comments 01/17/2023 12:21 PM 01/18/2023 3:25 PM Care Teams Thoracic Medicine Physician Relationship Specialty Start Date End Date Betty Rodriguez MD [address] [place] [phone] PCP - General Internal Medicine 09/02/22
[2024-03-21 20:31] VITALS: BP 121/70; PULSE 84; RESP 20; TEMP 36.2; O2SAT 100
--- NOTE | 2024-03-21 22:16 | PC.NURSE ---
Pt approached triage desk asking for eta. Pt educated that we are not allowed to give out wait times because it can change at any minute. Pt stated that pt is getting aggravated and is wanting to leave. Pt brought to 2nd triage bay and Iv was removed with tip intact. Pt ambulated to ED exit with steady gait and no signs for concern at this time.
--- OUTSIDE RECORDS SUMMARY | 2024-03-21 22:44 | XMS_ITS | Referral Summary ---
Author Organization [facility] Address [address] [place] [address] Care Team Providers Care S3B Multi Sensor Operator Name Role Phone Betty Rodriguez MD Primary Care Provider [phone] Source Comments [facility],non-[facility] Affiliates and Associated Physician Practices is amultiple site organization consisting of ambulatory clinics and hospital sitesin [place], [place], [place] and [place]. This disclosure is being madepursuant to the Care Everywhere program and may not contain all information available regarding this patient. Last updated 17.[facility] Encounters Date Type Department Care Team Description 01/27/2024 9:00 AM ANIMAL SERVICES OFFICER Office Visit [facility] Weight Management Services [address] [place] [address] Anusha Campa, MATCHER OFFBEARER-ASSISTANT PROFESSOR OF ENGLISH Overweight with body mass index (BMI) of 26 to 26.9 in adult (Primary Dx); S/P laparoscopic sleeve gastrectomy; Thyroid 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 abnormal; Vitamin D deficiency; Elevated liver enzymes; Elevated hemoglobin (HCC); Hypercholesteremia 01/27/2024 9:30 AM ANIMAL SERVICES OFFICER Clinical Support [facility] Weight Management Services [address] [place] [address] S/P laparoscopic sleeve gastrectomy from Last 3 [...] Comments Blood Pressure 130/64 01/27/2024 8:00 AM ANIMAL SERVICES OFFICER Pulse 64 01/27/2024 8:00 AM ANIMAL SERVICES OFFICER Temperature 36.3 C (97.3 F) 01/27/2024 8:00 AM ANIMAL SERVICES OFFICER Respiratory Rate 18 01/27/2024 8:00 AM ANIMAL SERVICES OFFICER Oxygen Saturation 98% 01/27/2024 8:00 AM ANIMAL SERVICES OFFICER Inhaled Oxygen Concentration 21% 01/17/2023 1 1:15 PM ANIMAL SERVICES OFFICER Weight 88.7 kg (195 lb 8 oz) 01/27/2024 9:00 AM ANIMAL SERVICES OFFICER Height 182 cm (5' 11.65 ) 01/27/2024 9:00 AM ANIMAL SERVICES OFFICER Body Mass Index 26.77 01/27/2024 9:00 AM ANIMAL SERVICES OFFICER Functional Status Functional Status Response Date [...] Description 04/25/2024 9:44 AM CDT Hospital Encounter [facility] Op [address] [place] [address] Eliana Enriquez MD [address] [place] [phone] Surgery General 04/25/2024 9:44 AM CDT - 04/25/2024 10:10 AM CDT Surgery [facility] Op [address] [place] [address] Eliana Enriquez MD [address] [place] [phone] ESOPHAGOGASTRODUODENOSCOPY WITH BIOPSY 05/03/2024 9:30 AM CDT Office Visit [facility] Weight Management Services [address] [place] [address] Eliana Enriquez MD [address] [place] [phone] 07/19/2024 9:00 AM CDT Office Visit [facility] Health Weight Management Services [address] [place] [address] Anusha Campa APRN-ASSISTANT PROFESSOR OF ENGLISH [address] [place] [address] 01/18/2025 9:00 AM ANIMAL SERVICES OFFICER Clinical Support [facility] Health Weight Management Services [address] [place] [address] 01/18/2025 9:30 AM ANIMAL SERVICES OFFICER Office Visit [facility] Health Weight Management Services [address] [place] [address] Anusha Campa, MATCHER OFFBEARER-ASSISTANT PROFESSOR OF ENGLISH [address] [place] [address] Scheduled Procedures Name Priority Associated Diagnoses Date/Ti me ESOPHAGOGASTRODUODENOSCOPY ( EGD) BIOPSY Status post bariatric surgery 04/25/2024 9:44 AM CDT Medical Devices Implanted Type Area Community Relations Liaison Device Identifier Shelf Expiration Date Model / Serial / Lot Kit Tissue Clsr Duo Tssl 1 Prefl Syr - [id number] Implanted:Qty: 1 on 01/17/2023 by Eliana Enriquez MD at [facility] [employer] 09/13/2024 [id number] / [id number] / [id number] Procedures Procedure Name Priority Date/Time Associated Diagnosis Comments COMPREHENSIVE METABOLIC PANEL Routine 07/21/2023 S/P laparoscopic sleeve gastrectomy Thyroid 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 abnormal LIPID PROFILE Routine 07/21/2023 S/P laparoscopic sleeve gastrectomy Thyroid 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 abnormal from Last 3 Months or Most Recently Relevant to Health Maintenance Results * COMPREHENSIVE METABOLIC PANEL (07/21/2023) Blood BLOOD SPECIMEN / Unknown 07/21/2023 Shanel Ware APRN-ASSISTANT PROFESSOR OF ENGLISH LAB - [place] ORDERABLES OTHER LAB * LIPID PROFILE (07/21/2023) Blood BLOOD SPECIMEN / Unknown 07/21/2023 Shanel Ware APRN-ASSISTANT PROFESSOR OF ENGLISH LAB - [place] ORDERABLES OTHER LAB from Last 3 Months or Most Recently Relevant to Health Maintenance Advance Directives Documents on File Type Date Recorded Patient Peat Shredder Tender Expl 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 Power of Attorne y for Healthcare * Full Code (Latest Code Status on File) Date Activated Date Inactivated Comments 01/17/2023 12:21 PM 01/18/2023 3:25 PM Care Teams S3B Multi Sensor Operator Relationship Specialty Start Date End Date Betty Rodriguez MD [address] [place] [phone] PCP - General Internal Medicine 09/02/22
--- OUTSIDE RECORDS SUMMARY | 2024-03-21 22:44 | XMS_ITS | Patient Health Summary ---
Author Organization [facility] Address [address] [facility] [place] [address] Care Team Providers Care Real Estate Closer Name Role Phone Betty Rodriguez MD Primary Care Provider [phone] Note from [facility],non-owned Affiliates and Associated Physician Practices is amultiple site organization consisting of ambulatory clinics and hospital sitesin [place], [place], [place] and [place]. This disclosure is being madepursuant to the Care Everywhere program and may not contain all information available regarding this patient. Last updated 17.[facility] Allergies No known active allergies Medications * [...] Comments Blood Pressure 130/64 01/27/2024 8:00 AM COOKIE PADDER Pulse 64 01/27/2024 8:00 AM COOKIE PADDER Temperature 36.3 C (97.3 F) 01/27/2024 8:00 AM COOKIE PADDER Respiratory Rate 18 01/27/2024 8:00 AM COOKIE PADDER Oxygen Saturation 98% 01/27/2024 8:00 AM COOKIE PADDER Inhaled Oxygen Concentration 21% 01/17/2023 1 1:15 PM COOKIE PADDER Weight 88.7 kg (195 lb 8 oz) 01/27/2024 9:00 AM COOKIE PADDER Height 182 cm (5' 11.65 ) 01/27/2024 9:00 AM COOKIE PADDER Body Mass Index 26.77 01/27/2024 9:00 AM COOKIE PADDER Medical Devices Implanted Type Area Manager Balance Device Identifier Shelf Expiration Date Model / Serial / Lot Kit Tissue Clsr Duo Tssl 1 Prefl Syr - [id number] Implanted:Qty: 1 on 01/17/2023 by Eliana Enriquez MD at [facility] 09/13/2024 [id number] / [id number] / [id number] Procedures * VITAMIN B1(Performed 07/21/2023) Performed for [...] (HCC) * ENDOTRACHEAL TUBE NOTE(Performed 01/17/2023) * VT LAP SLEEVE GASTRECTOMY(Performed 01/17/2023) Performed for Morbid [...] gastric ulcer hemorrhage or perforation present * VT EGD FLEX TRANSORAL W BX SNGL OR [...] esophagitis present, Screen for colon cancer * VT EGD FLEX TRANSORAL W BX SNGL OR [...] BLOOD SPECIMEN / Unknown 07/21/2023 Shanel Ware APRN-[employer] LAB - [place] ORDERABLES Performing Organization Address City/[facility]/ZIP Co de Phone Number OTHER LAB * VITAMIN B1 (07/21/2023) Only the most recent of3 resultswithin the time period is included. Blood BLOOD SPECIMEN / Unknown 07/21/2023 Shanel Ware APRN-[employer] LAB - Real GravityRY ORDERABLES Performing Organization Address City/[facility]/ZIP Co de Phone Number OTHER LAB * VITAMIN D 25-HYDROXY (07/21/2023) Only the most recent of3 resultswithin the time period is included. Blood BLOOD SPECIMEN / Unknown 07/21/2023 Shanel Ware BRICKLAYER-[employer] LAB - [employer] JUST[place] ORDERABLES [facility] [address] [place] [address], [facility] * CBC WITH DIFFERENTIAL (07/21/2023) Only the most recent of7 resultswithin the time period is included. Blood BLOOD SPECIMEN / Unknown 07/21/2023 Shanel Ware APRN-JOURNEYMAN OPERATOR ASSISTANT LAB - HEM ATOLOGY ORDERABLES OTHER LAB * COMPREHENSIVE METABOLIC PANEL (07/21/2023) Only the most recent of5 resultswithin the time period is included. Blood BLOOD SPECIMEN / Unknown 07/21/2023 Shanel Ware APRN-JOURNEYMAN OPERATOR ASSISTANT LAB - [place] ORDERABLES Performing Organization Address [facility] Co de Phone Number OTHER LAB * PHOSPHORUS BLOOD (07/21/2023) Only the most recent of4 resultswithin the time period is included. Blood BLOOD SPECIMEN / Unknown 07/21/2023 Shanel Ware APRN-JOURNEYMAN OPERATOR ASSISTANT LAB - [place] ORDERABLES Performing Organization Address [facility] Co de Phone Number OTHER LAB * MAGNESIUM BLOOD (07/21/2023) Only the most recent of6 resultswithin the time period is included. Blood BLOOD SPECIMEN / Unknown 07/21/2023 Shanel Ware APRN-JOURNEYMAN OPERATOR ASSISTANT LAB - [place] ORDERABLES Performing Organization Address City/[facility] Co de Phone Number OTHER LAB * VITAMIN B12 FOLATE PANEL (07/21/2023) Only the most recent of3 resultswithin the time period is included. Blood BLOOD SPECIMEN / Unknown 07/21/2023 Shanel Ware APRN-JOURNEYMAN OPERATOR ASSISTANT LAB - [place] ORDERABLES [facility] [address] [place], [place] [address] * TSH (07/21/2023) Only the most recent of3 resultswithin the time period is included. Blood BLOOD SPECIMEN / Unknown 07/21/2023 Shanel Ware APRN-JOURNEYMAN OPERATOR ASSISTANT LAB - [place] ORDERABLES Performing Organization Address [facility] Co de Phone Number OTHER LAB * IRON + TRANSFERRIN PANEL (07/21/2023) Only the most recent of3 resultswithin the time period is included. Blood BLOOD SPECIMEN / Unknown 07/21/2023 Shanel Ware APRN-JOURNEYMAN OPERATOR ASSISTANT LAB - [place] ORDERABLES Performing Organization Address [facility] Co de Phone Number OTHER LAB * FERRITIN (07/21/2023) Only the most recent of3 resultswithin the time period is included. Blood BLOOD SPECIMEN / Unknown 07/21/2023 Shanel Ware APRN-JOURNEYMAN OPERATOR ASSISTANT LAB - [place] ORDERABLES Performing Organization Address [facility] Co de Phone Number OTHER LAB * LIPID PROFILE (07/21/2023) Only the most recent of4 resultswithin the time period is included. Blood BLOOD SPECIMEN / Unknown 07/21/2023 Shanel Ware APRN-JOURNEYMAN OPERATOR ASSISTANT LAB - [place] ORDERABLES Performing Organization Address City/[facility] Co de Phone Number OTHER LAB * LAB MISC TEST (05/12/2023) Only the most recent of2 resultswithin the time period is included. Blood BLOOD SPECIMEN / Unknown Historical Provider MD LAB SEND OUT * CARDIAC RHYTHM STRIP ORDER (01/19/2023 3:11 PM COOKIE PADDER) Only the most recent of3 resultswithin the time period is included. Narrative 01/19/2023 3:11 PM COOKIE PADDER Ordered by an unspecified provider. Scanned Document CARDIAC SERVICES ORD ERABLES * APHERESIS/TRANSFUSION ORDER (01/19/2023 2:32 PM COOKIE PADDER) Narrative 01/19/2023 2:32 PM COOKIE PADDER Ordered by an unspecified provider. Scanned Document NURSING - VITAL SIGN S AND ASSESSMENT * GLUCOSE - POINT OF CARE (01/18/2023 11:19 AM COOKIE PADDER) Only the most recent of4 resultswithin the time period is included. Glucose WB/POC 111 70 - 125 mg/dL 01/18/2023 11:29 AM COOKIE PADDER [facility] Specimen Type Arterial 01/18/2023 11:29 AM COOKIE PADDER [facility] Blood BLOOD SPECIMEN / Unknown 01/18/2023 11:19 AM COOKIE PADDER 01/18/2023 11:29 AM COOKIE PADDER Eliana Enriquez MD LAB - POINT OF C ARE ORDERABLES Performing Organization Address City/[facility]/ZIP Co de Phone Number [facility] [address] [place] [address] * TSH REFLEX FREE T4 (01/18/2023 5:48 AM COOKIE PADDER) Pathologist [facility] TSH 1.9327 0.35 - 4.94 uIU/mL 01/18/2023 6:46 AM COOKIE PADDER [facility] Comment:TSH Normal, Reflex F ree T4 Not Performed. Blood BLOOD SPECIMEN / Unknown Lab Venipuncture / Unknown 01/18/2023 5:48 AM COOKIE PADDER 01/18/2023 6:03 AM COOKIE PADDER Nicolette OVIEDO LAB - CHEMISTRY ORDERABLES Performing Organization Address City/[facility]/ZIP Co de Phone Number [facility] [address] * HEMOGLOBIN A1C (01/18/2023 5:48 AM COOKIE PADDER) Only the most recent of2 resultswithin the time period is included. Hemoglobin A1c 5.1 4.2 - 5.6 % 01/18/2023 6:13 AM COOKIE PADDER [facility] Estimated Average Glucose 100 mg/dL 01/18/2023 6:13 AM [facility] Blood BLOOD SPECIMEN / Unknown Lab Venipuncture / Unknown 01/18/2023 5:48 AM COOKIE PADDER 01/18/2023 6:03 AM COOKIE PADDER Narrative [facility] - 01/18/2023 6:13 AM COOKIE PADDER HbA1c Interpretation: Normal: < 5.7% Pre-diabetes: 5.7-6.4% [...] Eliana Enriquez MD LAB - CHEMISTRY ORDERABLES [facility] [address] * GROSS + MICRO EXAM (ILL) (01/17/2023 10:44 AM COOKIE PADDER) Only the most recent of3 resultswithin the time period is included. Case Report Surgical Pathology Report Case: [id number] Authorizing Provider: Eliana Enriquez MD Collected: 01/17/2023 10:44 AM Ordering Location: [facility] Received: 01/18/2023 09:13 AM Pathologist: Dwight Mendez MD Specimen: Stomach Resect Sub, Stomach Remnants - Sleeve Gastrectomy 01/21/2023 12:25 PM [facility] Final Diagnosis Stomach, partial resection: Chronic gastritis with intestinal metaplasia, negative for Helicobacter. Comment: Helicobacter pylori IHC stain is negative. 01/21/2023 12:25 PM [facility] Microscopic Description and Comment Microscopic examination is performed and substantiates the above diagnosis. 01/21/2023 12:25 PM [facility] Gross Description The requisition and [...] identified. The wall thickness is 0.1-0.2 cm. [employer] Salesperson sections are submitted in cassettes A1-A2 with sections subjacent to the staple line in A1. AW 01/21/2023 12:25 PM [facility] Pathologist Location at [facility] 01/21/2023 12:25 PM [facility] Disclaimer The performance characteristics of all immunohistochemical and indirect immunofluorescence stains (if any) cited in this report were determined by the Histopathology Laboratory of [facility]. Some of these tests were developed by [...] H&E slides and special stains prepared at [facility], [place]. [address] (CLIA# [id number]) unless otherwise specified. This case was interpreted by the [facility] Department of Pathology. When applicable, select reference laboratory testing is performed at the [facility], [address] [place] [address]. 01/21/2023 12:25 PM COOKIE PADDER [facility] Embedded Images 01/21/2023 12:25 PM [facility] Pathology/Cytolo gy SPECIMEN FROM STOMACH OBTAINED BY PARTIAL GASTRECTOMY / Unknown 01/17/2023 10:44 AM COOKIE PADDER 01/18/2023 9:13 AM COOKIE PADDER Comment:Pre-op diagnosis: Morbid obesity (CMS/HCC) [E66.01] Eliana Enriquez MD LAB - PATHOLOGY/ CYTOLOGY ORDERABLES [facility] [address] * ETT LINE PERFORMABLE (01/17/2023 10:13 AM COOKIE PADDER) Narrative Danny Wilkins APRN-CRNA - 01/17/2023 10:13 AM COOKIE PADDER Danny Wilkins APRN-CRNA 01/17/2023 10:14 AM Endotracheal Tube Placement: Patient Location: OR. Intubation Event Date/Time: 01/17/2023 9:30 AM Procedure: intubation ([id number]). Procedure Section: Sedation: under general anesthesia. Indications [...] Region Laterality Modality Abdomen Ultrasound Shanel Ware BRICKLAYER-JOURNEYMAN OPERATOR ASSISTANT US ORDERA BLES * US ABDOMEN COMPLETE (01/11/2023) Anatomical Region Laterality Modality Abdomen Ultrasound Historical Provider US ORDERABLES * BLOOD TYPE VERIFICATION (01/10/2023 12:01 PM COOKIE PADDER) ABO Rh A POS 01/10/2023 12:51 PM COOKIE PADDER [facility] Blood Bank BLOOD SPECIMEN / Unknown Lab Venipuncture / Unknown 01/10/2023 12:01 PM COOKIE PADDER 01/10/2023 12:05 PM COOKIE PADDER Eliana Enriquez MD LAB - BLOOD BANK ORDERABLES Performing Organization Address City/[facility] Co de Phone Number [facility] [address] [place] [address] * TYPE + SCREEN PANEL (01/10/2023 11:45 AM COOKIE PADDER) ABO Rh A POS 01/10/2023 12:50 PM COOKIE PADDER [facility] Antibody Screen NEG 12:50 PM COOKIE PADDER [facility] Blood Bank BLOOD SPECIMEN / Unknown Lab Venipuncture / Unknown 01/10/2023 11:45 AM COOKIE PADDER 01/10/2023 11:48 AM COOKIE PADDER Gabbie Contreras MD LAB - BLOOD BA NK ORDERABLES Performing Organization Address City/[facility]/ZIP Co de Phone Number [facility] [address] [place] [address] * PT PTT PANEL (09/07/2022) Blood BLOOD SPECIMEN / Unknown 09/07/2022 Anusha Campa BRICKLAYER-JOURNEYMAN OPERATOR ASSISTANT LAB - COAGULATIO N ORDERABLES Performing Organization Address City/[facility]/ZIP Co de Phone Number OTHER LAB * XR CHEST 2VW (09/07/2022) Anatomical Region Laterality Modality Chest Other Anusha Campa APRN-[facility]AGI NG ORDERABLES * EKG 12-LEAD (09/07/2022) Anusha Campa APRN-JOURNEYMAN OPERATOR ASSISTANT ECG ORDERABLES Care Teams Real Estate Closer Relationship Specialty Start Date End Date Betty Rodriguez MD [address] [place] [address] PCP - General Internal Medicine 09/02/22
--- OUTSIDE RECORDS SUMMARY | 2024-03-21 22:44 | XMS_ITS | Clinical Summary ---
Author Organization [facility] Address [address] [place] [place] [address] Care Team Providers Care Cosmetics And Toiletries Salesperson Name Role Phone Betty Rodriguez MD Primary Care Provider [phone] Source Comments [facility],non-owned Affiliates and Associated Physician Practices is amultiple site organization consisting of ambulatory clinics and hospital sitesin [place], [place], [place] and [place]. This disclosure is being madepursuant to the Care Everywhere program and may not contain all information available regarding this patient. Last updated 17.[facility] Allergies No known active allergies Medications [...] Department Care Team Description 01/27/2024 9:30 AM ALUMNI RELATIONS OFFICER Clinical Support [facility] Weight Management Services [address] [place] [address] S/P laparoscopic sleeve gastrectomy 01/27/2024 9:00 AM ALUMNI RELATIONS OFFICER Office Visit [facility] Weight Management Services [address] [place] [phone] Anusha Campa, MULTI MISSION HELICOPTER AIRCREWMAN-AMADOU Overweight with body mass index (BMI) of [...] Comments Blood Pressure 130/64 01/27/2024 8:00 AM ALUMNI RELATIONS OFFICER Pulse 64 01/27/2024 8:00 AM ALUMNI RELATIONS OFFICER Temperature 36.3 C (97.3 F) 01/27/2024 8:00 AM ALUMNI RELATIONS OFFICER Respiratory Rate 18 01/27/2024 8:00 AM ALUMNI RELATIONS OFFICER Oxygen Saturation 98% 01/27/2024 8:00 AM ALUMNI RELATIONS OFFICER Inhaled Oxygen Concentration 21% 01/17/2023 1 1:15 PM ALUMNI RELATIONS OFFICER Weight 88.7 kg (195 lb 8 oz) 01/27/2024 9:00 AM ALUMNI RELATIONS OFFICER Height 182 cm (5' 11.65 ) 01/27/2024 9:00 AM ALUMNI RELATIONS OFFICER Body Mass Index 26.77 01/27/2024 9:00 AM ALUMNI RELATIONS OFFICER Plan of Treatment Upcoming Encounters Date Type Department Care Team (Latest Contact Info) Description 04/25/2024 9:44 AM CDT Hospital Encounter [facility] [address] [place] [address] Eliana Enriquez MD [address] [place] [address] Surgery General 04/25/2024 9:44 AM CDT - 04/25/2024 10:10 AM CDT Surgery [facility] Op [address] [place] [address] Eliana Enriquez MD [address] [place] [phone] ESOPHAGOGASTRODUODENOSCOPY WITH BIOPSY 05/03/2024 9:30 AM CDT Office Visit [facility] Weight Management Services [address] [place] [phone] Eliana Enriquez MD [address] [place] [address] 07/19/2024 9:00 AM CDT Office Visit [facility] Weight Management Services [address] [place] [address] Anusha Campa, MULTI MISSION HELICOPTER AIRCREWMAN-CORPORATE EXECUTIVE CHEF [address] [place] [address] 01/18/2025 9:00 AM ALUMNI RELATIONS OFFICER Clinical Support [facility] Weight Management Services [address] [place] [address] 01/18/2025 9:30 AM ALUMNI RELATIONS OFFICER Office Visit [facility] Weight Management Services [address] [place] [address] Anusha Campa, M[employer]I [employer] HELICOPTER AIRCREWMAN-CORPORATE EXECUTIVE CHEF [address] [place] [address] Scheduled Procedures Name Priority Associated Diagnoses Date/Ti [...] this topic Medical Devices Implanted Type Area Insole And Outsole Preparer Device Identifier Shelf Expiration Date Model / Serial / Lot Kit Tissue Clsr Duo Tssl 1 Prefl Syr - [id number] Implanted:Qty: 1 on 01/17/2023 by Eliana Enriquez MD at [facility] 09/13/2024 [id number] / [id number] / [id number] Procedures Procedure Name Priority Date/Time Associated Diagnosis Comments COMPREHENSIVE METABOLIC PANEL Routine 07/21/2023 S/P laparoscopic sleeve gastrectomy Thyroid 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 abnormal LIPID PROFILE Routine 07/21/2023 S/P laparoscopic sleeve gastrectomy Thyroid 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 abnormal from Last 3 Months or Most Recently Relevant to Health Maintenance Results * COMPREHENSIVE METABOLIC PANEL (07/21/2023) Blood BLOOD SPECIMEN / Unknown 07/21/2023 Shanel Ware MULTI MISSION HELICOPTER AIRCREWMAN-CORPORATE EXECUTIVE CHEF [facility] - [place] [facility] ORDERABLES OTHER LAB * LIPID PROFILE (07/21/2023) Blood BLOOD SPECIMEN / Unknown 07/21/2023 Shanel Ware MULTI MISSION HELICOPTER AIRCREWMAN-CORPORATE EXECUTIVE CHEF LAB - [place] ORDERABLES OTHER LAB from Last 3 Months or Most Recently Relevant to Health Maintenance Advance Directives Documents on File Type Date Recorded Patient Communication Spec Expl 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 Power of Attorne y for Healthcare * Full Code (Latest Code Status on File) Date Activated Date Inactivated Comments 01/17/2023 12:21 PM 01/18/2023 3:25 PM Care Teams Cosmetics And Toiletries Salesperson Relationship Specialty Start Date End Date Betty Rordiguez MD [address] [place] [phone] PCP - General Internal Medicine 09/02/22
--- OUTSIDE RECORDS SUMMARY | 2024-03-21 22:44 | XMS_ITS | CONTINUITY OF CARE DOCUMENT ---
Author Name maris pollock Address Unknown Organization [facility] Address [address] [place] [address] Phone [phone] Care Team Providers Care Network Applications Specialist Name Role Phone Fuentes PARRISH, Breann Unavailable [phone] TRINIDAD PARRISH, SAVI Encinas Unavailable FRANCES PARRISH, WESTON Unavailable [phone] INSURANCE PROVIDERS Payer name Policy type / Coverage type [place] red republican ID [employer] OPEN ACCESS Other [id number]
== END 2024-03-21 22:16 | disposition left against medical advice (07) ==
PROVIDERS: PCP Internal Medicine
DX: S09.90XA Unspecified injury of head, initial encounter (principal)
CPT/HCPCS: 99199

== ENCOUNTER 2024-05-22 14:05 | Outpatient (CLI) | payer MEDICARE, SELFPAY ==
--- NOTE | ~2024-05-22 | XR_ITS ---
EXAM/ PROCEDURE: XR hip LT min 2V - 05/22/2024 14:11 CDT HISTORY: 69 years old Male with FALL 3 WKS AGO PN DOWN LEFT LEG, COMPARISON: None available TECHNIQUE: Three view(s) FINDINGS/ IMPRESSION: There are no fractures or dislocations.Joint space narrowing, subchondral sclerosis, subchondral cyst formation and osteophyte formation, compatible with moderate osteoarthritis. Reviewed, dictated and finalized at location A.
--- NOTE | ~2024-05-22 | XR_ITS ---
Lumbosacral Spine: AP and lateral views Clinical History: Pain Findings: The normal lordotic curve is maintained. Probable minimal chronic anterior wedging deformit y of L1. No subluxation evident. There is moderate to advanced facet arthropathy throughout the lumba r spine. There is severe degenerative disc narrowing at L4-L5 and L5-S1. There is advanced degenerati ve disc narrowing at L1-L2. There is moderate degenerative distended at the remaining lumbar levels. The sacroiliac joints are normally outlined. Impression: Advanced degenerative spondylosis. Mild chronic anterior wedging deformity of L1. Reviewed, dictated and finalized at location M. Impression: Advanced degenerative spondylosis. Mild chronic anterior wedging deformity of L1.
--- OUTSIDE RECORDS SUMMARY | 2024-05-22 15:46 | XMS_ITS | Patient Health Record ---
Author Organization [facility] Address [address] [place], [place] [address] Care Team Providers Care Boot Repairer Name Role Phone NAVID STROUD Unavailable [phone] Betty Rodriguez Unavailable Unavailable MISSAEL CHUN Unavailable [phone] Allergies No Known Allergies Reason For Referral No Information Medications Medication SIG (Take, Route, Frequency, Duration) Notes Start Date End Date Status Amoxicillin-Pot Clavulanate 875-125 MG Oral for 5 Days Active Lisinopril-hydroCHLOROthiaz teresita 10-12.5 MG Oral for 90 Days Active Atorvastatin Calcium 40 MG Oral for 90 Days Active Immunizations Vaccine Route Administration Date Status Comme nts Influenza, high dose seasonal Unknown 11/22/2022 Admini stered Vital Signs Height-cm 182.88 cm 09/08/2023 Weight-kg 167.83 kg 09/08/2023 Height 72 in 09/08/2023 Weight 370 lbs 09/08/2023 BMI 50.18 kg/m2 09/08/2023 Encounters Encounter Location Date Provider Diagnosis [address] [id number] 07/07/2023 MISSAEL CHUN Tinea unguium B35.1 ; Unspecified atherosclerosis of [place]qu[place] arteries of extremities, bilateral legs I70.203 ; Type 2 diabetes mellitus with diabetic peripheral angiopathy without gangrene E11.51 ; Other hammer toe(s) (acquired), right foot M20.41 ; Other hammer toe(s) (acquired), left foot M20.42 ; Pain in right toe(s) M79.674 and Pain in left toe(s) M79.[address] [id number] 09/08/2023 MISSAEL CHUN Tinea unguium B35.1 ; Unspecified atherosclerosis of [place] arteries of extremities, bilateral legs I70.203 ; Type 2 diabetes mellitus with diabetic peripheral angiopathy without gangrene E11.51 ; Other hammer toe(s) (acquired), right foot M20.41 ; Other hammer toe(s) (acquired), left foot M20.42 ; Pain in right toe(s) M79.674 and Pain in left toe(s) M79.[address] [id number] 11/10/2023 MISSAEL CHUN Tinea unguium B35.1 ; Unspecified atherosclerosis of [place]quam[place] arteries of extremities, bilateral legs I70.203 ; Type 2 diabetes mellitus with diabetic peripheral angiopathy without gangrene E11.51 ; Other hammer toe(s) (acquired), right foot M20.41 ; Other hammer toe(s) (acquired), left foot M20.42 ; Pain in right toe(s) M79.674 and Pain in left toe(s) M79.[address] [id number] 01/19/2024 MISSAEL CHUN Tinea unguium B35.1 ; Unspecified atherosclerosis of [place]quamish arteries of extremities, bilateral legs I70.203 ; Type 2 diabetes mellitus with diabetic peripheral angiopathy without gangrene E11.51 ; Other hammer toe(s) (acquired), right foot M20.41 ; Other hammer toe(s) (acquired), left foot M20.42 ; Pain in right toe(s) M79.674 and Pain in left toe(s) M79.[address] [id number] 04/05/2024 NAVIDERIC ALTAMIRANOOSEASMathieu Tinea unguium B35.1 ; Pain in right toe(s) M79.674 ; Pain in left toe(s) M79.675 and Atherosclerosis of suquamish arteries of extremities with intermittent claudication, bilateral legs I70.213 Assessments Encounter Date Diagnosis (ICD Code) Assessment Notes Treatment Notes Treatment Clinical Notes Section Notes 07/07/2023 Tinea unguium (ICD-10 - B35.1) Aseptic [...] and prescription treatments. 07/07/2023 Unspecified atherosclerosis of suquamish arteries of extremities, bilateral legs (ICD-10 - I70.203) Patient educated on risks and aggravating factors of PVD, including conservative treatment options such as a diet and exercise regimen to aid in slowing progression of vascular disease 09/08/2023 Unspecified atherosclerosis of [place]quam[place] arteries of extremities, bilateral legs (ICD-10 - [...] and prescription treatments. 11/10/2023 Unspecified atherosclerosis of suquamish arteries of extremities, bilateral legs (ICD-10 - I70.203) Patient educated on risks and aggravating factors of PVD, including conservative treatment options such as a diet and exercise regimen to aid in slowing progression of vascular disease 01/19/2024 Unspecified atherosclerosis of suquamish arteries of extremities, bilateral legs (ICD-10 - [...] educated regarding both OTC and prescription treatments. 04/05/2024 Tinea unguium (ICD-10 - B35.1) FUNGAL TOENAILS: Discussed various treatment options for fungal toenails including debridement, topical antifungals, oral antifungals, toenail avulsion, or toenail matrixectomy. NAIL DEBRIDEMENT: Nails 1-5 Bilateral were debrided extensively with nail nippers and emery board, reducing length and girth to pink healthy tissue with any subungual debris and necrotic tissue removed 04/05/2024 Pain in right toe(s) (ICD-10 - M79.674) 04/05/2024 Pain in left toe(s) (ICD-10 - M79.675) 01/19/2024 Type 2 diabetes mellitus with diabetic [...] not limited to nausea, vomiting, fever. 11/10/2023 Other hammer toe(s) (acquired), right foot (ICD-10 - M20.41) 09/08/2023 Other hammer toe(s) (acquired), right foot (ICD-10 - M20.41) 07/07/2023 Other hammer toe(s) (acquired), right foot (ICD-10 - M20.41) 04/05/2024 Atherosclerosis of suquamish arteries of extremities with intermittent claudication, bilateral legs (ICD-10 - I70.213) 01/19/2024 Other hammer toe(s) (acquired), right foot (ICD-10 - M20.41) 01/19/2024 Other hammer toe(s) (acquired), left foot (ICD-10 - M20.42) 07/07/2023 Other hammer toe(s) (acquired), left foot (ICD-10 - M20.42) 09/08/2023 Other hammer toe(s) (acquired), left foot (ICD-10 - M20.42) 11/10/2023 Other hammer toe(s) (acquired), left foot (ICD-10 - M20.42) 11/10/2023 Pain in right toe(s) (ICD-10 - [...] toe(s) (ICD-10 - M79.675) Plan Of Treatment Next Appt Details Provider Name:ROHINI Jarrett GARY CARDOSO, 06/07/2024 08:30:00 AM, [address] [place] [address], [id number], Insurance Providers Payer Name Payer Address Payer Phone Subscriber Number Group Number Insured Name Patient Relationship to Insured Coverage Start Date Coverage End Date [employer] [address] [place] [phone] [id number] Jayesh DINH Self - patient is the insured
--- OUTSIDE RECORDS SUMMARY | 2024-05-22 15:46 | XMS_ITS | Clinical Summary ---
Author Organization [facility] [employer] Address [address] [place] [address] Care Team Providers Care Licensed Pharmacist Name Role Phone Betty Rodriguez MD Primary Care Provider [phone] [facility] [employer],non-owned Affiliates and Associated Physician Practices is amultiple site organization consisting of ambulatory clinics and hospital sitesin [place], [place], [place] and [place]. This disclosure is being madepursuant to the Care Everywhere program and may not contain all information available regarding this patient. Last updated 17.[employer] Allergies No known active allergies Medications * Be aware that medications may not be up to date on this document. Alwaysverify current medications with the patient. Medication Sig Dispensed Refills Start Date End Date Status Calcium Carbonate (CALCIUM 600 PO) Take 600 mg by mouth 3 times daily 1 tab by mouth twice a day Active multivitamin daily tablet Take 1 (one) tablet by mouth 2 times daily Active Guselkumab (TREMFYA IV) Iv q 6 weeks for three doses Active budesonide (Entocort EC) [address] capsule Take 1 (one) capsule by mouth once daily Patient on decreasing dose, currently 2 capsules daily Active acetaminophen (Tylenol) 325 MG tablet Take 1 (one) tablet by mouth every 4 hours as needed for Pain Maximum allowable Acetaminophen amount = 4 Grams (4000 mg) / 24 hours. 05/03/2024 Discontinue d(List Clean-Up) diphenhydrAMINE- APAP, sleep, (TYLENOL PM EXTRA STRENGTH PO) 05/03/2024 Discontinue d(List Clean-Up) mesalamine DR (Delzicol) 400 MG capsule 1 (one) capsule 3 times daily 01/25/2024 05/03/2024 Discontinue d(List Clean-Up) Active Problems Problem Noted Date Diagnosed Date Morbid obesity 01/17/2023 Encounters Date Type Department Care Team Description 05/03/2024 9:30 AM CDT Office Visit [facility] Weight Management Services [address] [place] [address] Eliana Enriquez MD Status post laparoscopic sleeve gastrectomy (Primary Dx) 05/03/2024 Telephone [facility] Management Services [address] [place] [address] Eliana Enriquez MD Record Request 04/25/2024 11:52 AM CDT Anesthesia Event [facility] Op [address] [place] [address] Halina Lindsay MD 04/25/2024 11:45 AM CDT - 04/25/2024 12:11 PM CDT Surgery [facility] Op [address] [place] [address] Eliana Enriquez MD ESOPHAGOGASTRODUODENOSCOPY WITH BIOPSY 04/25/2024 8:17 AM CDT - 04/25/2024 12:46 PM CDT Hospital Encounter [facility] Op [address] [place] [address] Eliana Enriquez MD Surgery General Discharge Disposition: Home or Self Care 04/25/2024 Travel 04/20/2024 Travel 04/01/[address] [facility] Weight Management Services [address] [place] [address] Anusha Campa, SAWMILL MOULDER OPERATOR-MATERIAL STRESS TESTER Overweight with body mass index (BMI) of 26 to 26.9 in adult; S/P laparoscopic sleeve gastrectomy; Elevated hemoglobin; Elevated liver enzymes; Hypercholesteremia; Vitamin D deficiency from Last 3 Months Family History Medical [...] drink containing alc ohol? Monthly or less 04/25/2024 Q2: How many drinks containi ng alcohol do you have on a typical day when you are drinking? 1 or 2 04/25/2024 Q3: How often do you have si x or more drinks on one occasion? Never 04/25/2024 PHQ-2 Answer Date Recorded Patient Health Questionnaire-2 Score 0 05/03/2024 Sex and Gender Information Value Date Recorded Sex Assigned at Not on file Gender Identity Not on file Sexual Orientation Not on file Last Filed Vital Signs Vital Sign Reading Time Taken Comments Blood Pressure 138/72 05/03/2024 8:00 AM CDT Pulse 81 05/03/2024 8:00 AM CDT Temperature 36.3 C (97.3 F) 05/03/2024 8:00 AM CDT Respiratory Rate 16 05/03/2024 8:00 AM CDT Oxygen Saturation 98% 05/03/2024 8:00 AM CDT Inhaled Oxygen Concentration 21% 01/17/2023 1 1:15 PM OVEN UNLOADER Weight 93.5 kg (206 lb 1.6 oz) 05/03/2024 8:00 A M CDT Height 182.9 cm (6') 05/03/2024 8:00 AM CDT Body Mass Index 27.95 05/03/2024 8:00 AM CDT Plan of Treatment Upcoming Encounters Date Type Department Care Team (Late st Contact Info) Description 07/19/2024 9:00 AM CDT Office Visit [facility] Weight Management Services [address] [place] [phone] Anusha Campa, SAWMILL MOULDER OPERATOR-MATERIAL STRESS TESTER [address] [place], [place] [address] 01/17/2025 9:30 AM OVEN UNLOADER Office Visit [facility] Weight Management Services [address] [place] [phone] Eliana Enriquez MD [address] [place] [address] 01/18/2025 9:00 AM OVEN UNLOADER Clinical Support [facility] Weight Management Services [address] [place] [address] 01/18/2025 9:30 AM OVEN UNLOADER Office Visit [facility] Weight Management Services [address] [place] [phone] Anusha Campa, SAWMILL MOULDER OPERATOR-MATERIAL STRESS TESTER [address] [place], [place] [address] Health Maintenance Due Date Last Done Comments [...] 2003 COVID-19 VACCINE (1 - season) 2023 MEDICARE AWV CALENDAR YEAR 2024 INFLUENZA VACCINE (Season Ended) 2024 11/22/2022 COLON MONITORING 11/12/2025 11/12/2022 Colorectal Cancer Screening 11/12/2025 SCREENING FOR DIABETES 07/20/2026 , 05/12/2023, 01/18/2023, Additional history exists EGD SURVEILLANCE 04/26/2027 04/25/2024, , 11/12/2022 Respiratory Syncytial Virus (RSV) Vaccine Pt: or over 60 yrs (1 - 1-dose 75+ series) 02/04/2028 LIPID TESTING 07/20/2028 07/21/2023, 04/15, 01/18/2023, Additional history exists COLONOSCOPY - COLON CA SCREENING 11/12/2032 11/12/2022 DEPRESSION SCREENING Completed 05/03/2024, 05/11/19 HEPATITIS B VACCINE Aged Out No longe r eligible based on patient's age to complete this topic HIB VACCINE Aged Out No longer eligi ble based on patient's age to complete this topic HPV VACCINE Aged Out No longer eligi ble based on patient's age to complete this topic MENINGOCOCCAL (Group B) VACCINE SHARED DECISION-MAKING Aged Out No longer eligible based on patient's age to complete this topic MENINGOCOCCAL GROUPS A/C/Y/W VACCINE Aged Out No longer eligible based on patient's age to complete this topic Medical Devices Implanted Type Area Residential Supervisor Device Identifier Shelf Expiration Date Model / Serial / Lot Kit Tissue Clsr Duo Tssl 1 Prefl Syr - [id number] Implanted:Qty: 1 on 01/17/2023 by Eliana Enriquez MD at [facility] 09/13/2024 [id number] / [id number] / [id number] Procedures Procedure Name Priority Date/Time Associated Diagnosis Comments CARDIAC RHYTHM STRIP ORDER 04/26/2024 2:03 PM CDT GROSS + MICRO EXAM (ILL) Routine 04/25/2024 12:02 PM CDT Status post bariatric surgery MA EGD FLEX TRANSORAL W BX SNGL OR MULT 04/25/2024 11:47 AM CDT Status post bariatric surgery Special Needs ARRIVAL TIME: 0815 COMPREHENSIVE METABOLIC PANEL Routine 07/21/2023 S/P laparoscopic sleeve gastrectomy Thyroid 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 abnormal LIPID PROFILE Routine 07/21/2023 S/P laparoscopic sleeve gastrectomy Thyroid 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 abnormal from Last 3 Months or Most Recently Relevant to Health Maintenance Results * CARDIAC RHYTHM STRIP ORDER (04/26/2024 2:03 PM CDT) Narrative 04/26/2024 2:03 PM CDT Ordered by an unspecified provider. Scanned Document CARDIAC SERVICES ORD ERABLES * GROSS + MICRO EXAM (ILL) (04/25/2024 12:02 PM CDT) Case Report Surgical Pathology Report Case: [id number] Authorizing Provider: Eliana Enriquez MD Collected: 04/25/2024 12:02 PM Ordering Location: [facility] Received: 04/26/2024 09:28 AM Hospital - [facility] Pathologist: Yury Catsellon MD Specimen: Gastric Biopsy, Antrum Biopsy to rule out h-Pylori 04/30/2024 1:45 PM T [facility] Final Diagnosis A. Stomach, antrum, biopsy: - Mild chronic inactive gastritis - Focal intestinal metaplasia - Negative for dysplasia - Immunostain for H.pylori is negative 04/30/2024 1:45 PM T [facility] Microscopic Description and Comment Microscopic examination is performed and substantiates the above diagnosis. 04/30/2024 1:45 PM T [facility] Clinical History Status post bariatric surgery. Biopsy of normal appearing antrum to rule out H.pylori 04/30/2024 1:45 PM T [facility] Gross Description A. The requisition and specimen(s) are identified with the patient's name (Stanley Anderson), MRN, and . Received in formalin labeled antrum biopsy to rule out H-pylori , are 2 cordero-pink soft tissue fragments, 0.2 and 0.3 cm in greatest dimension. The specimen is submitted in toto in cassette A1. AW 04/30/2024 1:45 PM [facility] Pathologist Location at [facility] 04/30/2024 1:45 PM T [facility] Disclaimer The performance characteristics of all immunohistochemical and indirect immunofluorescence stains (if any) cited in this report were determined by the Histopathology Laboratory of [facility]. Some of these tests were developed [...] H&E slides and special stains prepared at [facility], [place]. [address] (CLIA# [id number]) unless otherwise specified. This case was interpreted by the [facility] Department of Pathology. When applicable, select reference laboratory testing is performed at the [facility], [address] [place] [address]. 04/30/2024 1:45 PM CDT [facility] Embedded Images 04/30/2024 1:45 PM CDT [facility] Pathology/Cytolog y GASTRIC BIOPSY SPECIMEN / Unknown 04/25/2024 12:02 PM CDT 04/26/2024 9:28 AM CDT Comment:Pre-op diagnosis: Status post bariatric surgery [Z98.84] Eliana Enriquez MD LAB - PATHOLOGY/ CYTOLOGY ORDERABLES [facility] [address] [place] [address] * COMPREHENSIVE METABOLIC PANEL (07/21/2023) Blood BLOOD SPECIMEN / Unknown 07/21/2023 Shanel Ware SAWMILL MOULDER OPERATOR-MATERIAL STRESS TESTER LAB - [place] [facility] ORDERABLES OTHER LAB * LIPID PROFILE (07/21/2023) Blood BLOOD SPECIMEN / Unknown 07/21/2023 Shanel Ware SAWMILL MOULDER OPERATOR-MATERIAL STRESS TESTER LAB - [place] [facility] ORDERABLES OTHER LAB from Last 3 Months or Most Recently Relevant to Health Maintenance Advance Directives Documents on File Type Date Recorded Patient Brick Mason Expl 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 Power of Attorne y for Healthcare * Full Code (Latest Code Status on File) Date Activated Date Inactivated Comments 01/17/2023 12:21 PM 01/18/2023 3:25 PM Care Teams Licensed Pharmacist Relationship Specialty Start Date End Date Betty Rodriguez MD [address] [place] [phone] PCP - General Internal Medicine 09/02/22
--- OUTSIDE RECORDS SUMMARY | 2024-05-22 15:46 | XMS_ITS ---
Author Organization [facility] Address [address] [place], [place] [address] Care Team Providers Care Casket Liner Name Role Phone GENEMathieu NAVID Unavailable [phone] Betty Rodriguez Unavailable Unavailable REASON FOR VISIT Patient presents for at-risk foot care . The patient has painful toenails that cause difficulty with ambulation and shoegear. The onset is gradual Medications Medication SIG (Take, Route, Frequency, Duration) Notes Start Date End Date Status Amoxicillin-Pot Clavulanate 875-125 MG Oral for 5 Days Active Lisinopril-hydroCHLOROthiaz teresita 10-12.5 MG Oral for 90 Days Active Atorvastatin Calcium 40 MG Oral for 90 Days Active Encounters Encounter Location Date Provider Diagnosis [address] [id number] 04/05/2024 NAVID ALTAMIRANOOSEASMathieu Tinea unguium B35.1 ; Pain in right toe(s) M79.674 ; Pain in left toe(s) M79.675 and Atherosclerosis of [place] arteries of extremities with intermittent claudication, bilateral legs I70.213 Assessments Encounter Date Diagnosis (ICD Code) Assessment Notes Treatment Notes Treatment Clinical Notes Section Notes 04/05/2024 Tinea unguium (ICD-10 - B35.1) FUNGAL [...] Pain in left toe(s) (ICD-10 - M79.675) 04/05/2024 Atherosclerosis of [place] arteries of extremities with intermittent claudication, bilateral legs (ICD-10 - I70.213) Plan Of Treatment Treatment Notes Assessment Notes Tinea unguium FUNGAL TOENAILS: Discussed various treatment options for fungal toenails including debridement, topical antifungals, oral antifungals, toenail avulsion, or toenail matrixectomy. NAIL DEBRIDEMENT: Nails 1-5 Bilateral were debrided extensively with nail nippers and emery board, reducing length and girth to pink healthy tissue with any subungual debris and necrotic tissue removed Next Appt Details Follow Up: 10-12 Weeks, Reas on: At Risk Foot care, sooner if problems arise Provider Name:ROHINI CARDOSO, 06/07/2024 08:30:00 AM, [address] [place] [address], [id number], Progress Notes * Jayesh DINHDOB: 3 (69 yo M)Acc No.[id number]:04/05/2024 Patient: Jayesh CRUZ Provider: Bernardino Stroud DPM :1955 A ge:69 Y S ex:Male Date:04/05/2024 Address:[address] [place] [address] [id number] Subjective: * Chief Complaints: * Ernestina strickland presents for at-risk foot care . The patient has painful toenails that cause difficulty with ambulation and shoegear. The onset is gradual * HPI: H PI: General care P marco a presents to the office for at risk foot care. Patient states that their nails are thickened, elongated and painful. Patient states that it is aggravated by shoe gear. Onset is gradual. Patient denies being diabetic., Patient denies taking blood thinners., Date last seen by Dr. Rodriguez was within the last 6 months., Initials mca. sample. * ROS: G eneral / Constitutional: Patient denies c hills, fever, weight loss. ? M usculoskeletal: Patient denies w eakness, broken foot bone. ? P eripheral Vascular: Patient denies p ain / cramping in legs after exertion, ulceration of feet. S kin: Patient complains of f ungal nails, ingrown nails. ? N eurologic: Patient denies b alance difficulty, confusion, difficulty speaking, dizziness. * Medical History: * Surgical History: * Hospitalization/Major Diagno stic Procedure: * Medications: T akingAtorvastatin Calcium 40 MG Tablet Oral Lisinopril-hydroCHLOROthiazide 10- 12.5 MG Tablet Oral Amoxicillin-Pot Clavulanate 875-125 MG Tablet Oral Medication List reviewed and reconciled with the patientTaking Atorvastatin Calcium 40 MG Tablet Oral Taking Lisinopril-hydroCHLOROthiazide 10-12.5 MG Tablet Oral Taking Amoxicillin- Pot Clavulanate 875-125 MG Tablet Oral Medication List reviewed and reconciled with the patient Objective: * Vitals: * Examination: C onstitutional: Constitutional T he patient is awake, alert, well developed, well groomed and well nourished. D ermatologic: Skin findings: S kin is thin, atrophic and lacking pedal hair. Nail pathology: N ails 1, 2, 3, 4, and 5 bilateral are elongated, thick, discolored, and dystrophic with subungual debris. They are painful to palpation. ? V ascular: Dorsalis pedis pulse: 1 /4 b ilateral. Posterior tibial pulse: 0 /4 b ilateral. Capillary refill: g reater than 3 seconds. Edema: N o edema, bilateral. N eurologic: Gross sensation G ross sensation is intact to light touch.? M usculoskeletal: Muscle Strength M uscle strength is 5/5 in regards to dorsiflexion, plantarflexion, inversion, and eversion in bilateral lower extremities. ? Assessment: * Assessment: 1. T inea unguium - B35.1 (Primary) 2 . P ain in right toe(s) - M79.674? 3. P ain in left toe(s) - M79.675 4 . A therosclerosis of [place] arteries of extremities with intermittent claudication, bilateral legs - I70.213 Plan: * Treatment: * Procedure Codes: * Follow Up: 1 0-12 Weeks (Reason: At Risk Foot care, sooner if problems arise) * Billing Information: * Visit Code: 02320 Office Visit, Est Pt., Level 3. * Procedure Codes: * Sign off status: Completed true * Provider: Bernardino Stroud DPM Date: 0 04/05/2024 Generated for Adami kb/Abram/eTransmitting on: 0 05/22/2024 03:46 PM CDT History and Physical Notes * HPI (History [...] blood thinners., Date last seen by Dr. Rodrgiuez was within the last 6 months., Initials mca sample Examination Category Sub-Category Detail Notes Category Not es Dermatologic Skin findings: Skin is thin, at rophic and lacking pedal hair Nail pathology: Nails 1, 2, 3, 4, an d 5 bilateral are elongated, thick, discolored, and dystrophic with subungual debris. They are painful to palpation Neurologic Gross sensation Gross sensation is intact to light touch Vascular Dorsalis pedis pulse: 1/4 bilateral Edema: No edema, bilateral Capillary refill: greater than 3 secon ds Posterior tibial pulse: 0/4 bilateral Musculoskeletal Muscle Strength Muscle strength is 5/5 in regards to dorsiflexion, plantarflexion, inversion, and eversion in bilateral lower extremities Constitutional Constitutional The patient is a wake, alert, well developed, well groomed and well nourished
--- OUTSIDE RECORDS SUMMARY | 2024-05-22 15:46 | XMS_ITS ---
Author Organization [facility] Address [address] [place], [place] [address] Care Team Providers Care Cloth Bin Packer Name Role Phone NAVID STROUD Unavailable [phone] Betty Rodriguez Unavailable Unavailable MISSAEL CHUN Unavailable [phone] REASON FOR VISIT *General care Medications Medication SIG (Take, Route, Frequency, Duration) Notes Start Date End Date Status Amoxicillin-Pot Clavulanate 875-125 MG Oral for 5 Days Active Atorvastatin Calcium 40 MG Oral for 90 Days Active Lisinopril-hydroCHLOROthiaz teresita 10-12.5 MG Oral for 90 Days Active Encounters Encounter Location Date Provider Diagnosis [address] [id number] 11/10/2023 MISSAEL CHUN Tinea unguium B35.1 ; Unspecified atherosclerosis of [place] arteries of extremities, bilateral legs I70.203 ; Type 2 diabetes mellitus with diabetic peripheral angiopathy without gangrene E11.51 ; Other hammer toe(s) (acquired), right foot M20.41 ; Other hammer toe(s) (acquired), left foot M20.42 ; Pain in right toe(s) M79.674 and Pain in left toe(s) M79.675 Assessments Encounter Date Diagnosis (ICD Code) Assessment Notes Treatment Notes Treatment Clinical Notes Section Notes 11/10/2023 Tinea unguium (ICD-10 - B35.1) Aseptic [...] and prescription treatments. 11/10/2023 Unspecified atherosclerosis of [place] arteries of extremities, bilateral legs (ICD-10 - I70.203) Patient educated on risks and aggravating factors of PVD, including conservative treatment options such as a diet and exercise regimen to aid in slowing progression of vascular disease 11/10/2023 Type 2 diabetes mellitus with diabetic [...] toe(s) (acquired), right foot (ICD-10 - M20.41) 11/10/2023 Other hammer toe(s) (acquired), left foot (ICD-10 - M20.42) 11/10/2023 Pain in right toe(s) (ICD-10 - M79.674) 11/10/2023 Pain in left toe(s) (ICD-10 - [...] OTC and prescription treatments. Unspecified atherosclerosis of [place] arteries of extremities, bilateral legs Patient educated [...] Details Follow Up: 3 Months, Reason: Provider Name:ROHINI CARDOSO, 06/07/2024 08:30:00 AM, [address] [place] [address], [id number], Progress Notes * Jayesh DINHDOB: 3 (68 yo M)Acc No.[id number]:11/10/2023 Patient: Jayesh CRUZ Provider: Eleonora CHUN :1955 A ge:68 Y S ex:Male Date:11/10/2023 Address:[address] [place] [address] [facility] Subjective: * Chief Complaints: * 1 . *General care. * HPI: H PI: General care P atient presents to the office for diabetic foot care. Patient states that their nails are thickened, elongated and painful. Patient states that it is aggravated by shoe gear. Onset is gradual., Patient denies taking blood thinners., Date last seen by Dr. Rodriguez was 10/2023., Initials mca. * ROS: G eneral / Constitutional: Patient denies w eakness. R espiratory: Patient denies c hronic cough, shortness of breath, sputum production. C ardiovascular: Patient denies c hest pain, history of [place], irregular heartbeat. M usculoskeletal: Patient complains of h ammertoes. P eripheral Vascular: Patient denies b lanching of skin, cold extremities, decreased sensation in extremities. S kin: Patient complains of f ungal nails, nail changes. ? N eurologic: Patient denies d izziness, gait abnormality, headache. * Medical History: * Medications: T aking Atorvastatin Calcium 40 MG Tablet Oral , Taking Lisinopril- hydroCHLOROthiazide 10-12.5 MG Tablet Oral , Taking Amoxicillin-Pot Clavulanate 875-125 MG Tablet Oral Objective: * Vitals: * Examination: P hysical Examination: V ascular: Dorsalis Pedis pulse noted at 1/4 right [...] first metatarsophalangeal joint bilaterally. Assessment: * Assessment: 1. T inea unguium - B35.1 (Primary) 2 . U nspecified atherosclerosis of [place] arteries of extremities, bilateral legs - I70.203 3 . T ype 2 diabetes mellitus with diabetic peripheral angiopathy without gangrene - E11.51 4 . O ther hammer toe(s) (acquired), right foot - M20.41 5 . O ther hammer toe(s) (acquired), left foot - M20.42 6 . P ain in right toe(s) - M79.674 7 . P ain in left toe(s) - M79.675 Plan: * Treatment: 2. U nspecified atherosclerosis of [place] arteries of extremities, bilateral legs Notes: Patient educated on risks and aggravating factors of PVD, including conservative treatment options such as a diet and exercise regimen to aid in slowing progression of vascular disease ? 3. T ype 2 diabetes mellitus with diabetic peripheral angiopathy without gangrene Notes: Patient educated on proper diabetic foot [...] but not limited to nausea, vomiting, fever. * Follow Up: 3 Months * Billing Information: * Visit Code: 56424 Office Visit, Est Pt., Level 3. * Procedure Codes: * Sign off status: Completed true * Provider: Eleonora CHUN Date: 0 11/10/2023 Generated for Leigh quiles/Abram/Kenia on: 0 05/22/2024 03:46 PM CDT History and Physical Notes * HPI (History of Present Illness) Category Sub-Category Detail Notes Category Not es HPI General care Patient presents to the office for diabetic foot care. Patient states that their nails are thickened, elongated and painful. Patient states that it is aggravated by shoe gear. Onset is gradual., Patient denies taking blood thinners., Date last seen by Dr. Rodriguez was 10/2023., Initials mca Examination Category Sub-Category Detail Notes Category Not [...]
--- OUTSIDE RECORDS SUMMARY | 2024-05-22 15:46 | XMS_ITS | CONTINUITY OF CARE DOCUMENT ---
Author Name maris pollock Address Unknown Organization [facility] Address [address] [facility] [address] [place] [address] Phone [phone] Care Team Providers Care Sub Master Name Role Phone Fuentes PARRISH, Breann Unavailable TRINIDAD PARRISH, SAVI Encinas Unavailable [phone] FRANCES PARRISH, WESTON Unavailable INSURANCE PROVIDERS Payer name Policy type / Coverage type [place] red libertarian ID [employer] OPEN ACCESS Other [id number]
--- OUTSIDE RECORDS SUMMARY | 2024-05-22 15:47 | XMS_ITS ---
Author Organization [facility] Address [address] [place], [place] [address] Care Team Providers Care Cashier Gambling Name Role Phone NAVID STROUD Unavailable [phone] Betty Rodriguez Unavailable Unavailable MISSAEL CHUN Unavailable [phone] REASON FOR VISIT *General care Medications Medication SIG (Take, Route, Frequency, Duration) Notes Start Date End Date Status Lisinopril-hydroCHLOROthiaz teresita 10-12.5 MG Oral for 90 Days Active Amoxicillin-Pot Clavulanate 875-125 MG Oral for 5 Days Active Atorvastatin Calcium 40 MG Oral for 90 Days Active Encounters Encounter Location Date Provider Diagnosis [address] [id number] 01/19/2024 MISSAEL CHUN Tinea unguium B35.1 ; Unspecified atherosclerosis of [place] arteries of extremities, bilateral legs I70.203 ; Type 2 diabetes mellitus with diabetic peripheral angiopathy without gangrene E11.51 ; Other hammer toe(s) (acquired), right foot M20.41 ; Other hammer toe(s) (acquired), left foot M20.42 ; Pain in right toe(s) M79.674 and Pain in left toe(s) M79.675 Assessments Encounter Date Diagnosis (ICD Code) Assessment Notes Treatment Notes Treatment Clinical Notes Section Notes 01/19/2024 Tinea unguium (ICD-10 - B35.1) Aseptic [...] regarding both OTC and prescription treatments. 01/19/2024 Unspecified atherosclerosis of [place] arteries of extremities, bilateral legs (ICD-10 - I70.203) Patient educated on risks and aggravating factors of PVD, including conservative treatment options such as a diet and exercise regimen to aid in slowing progression of vascular disease 01/19/2024 Type 2 diabetes mellitus with diabetic [...] but not limited to nausea, vomiting, fever. 01/19/2024 Other hammer toe(s) (acquired), right foot (ICD-10 - M20.41) 01/19/2024 Other hammer toe(s) (acquired), left foot (ICD-10 - M20.42) 01/19/2024 Pain in right toe(s) (ICD-10 - [...] OTC and prescription treatments. Unspecified atherosclerosis of [place] arteries of extremities, bilateral legs Patient educated [...] Reason: Provider Name:ROHINI CARDOSO, 06/07/2024 08:30:00 AM, [address] [place] [address], [id number], Progress Notes * Jayesh DINHDOB: 3 (68 yo M)Acc No.[id number]:01/19/2024 Patient: Jayesh CRUZ Provider: Eleonora CHUN :1955 A ge:68 Y S ex:Male Date:01/19/2024 Address:[address] [place] [address] [id number] Subjective: * Chief Complaints: * 1 . *General care. * HPI: H PI: General care P atient presents to the office for diabetic foot care. Patient states that their nails are thickened, elongated and painful. Patient states that it is aggravated by shoe gear. Onset is gradual., Patient denies taking blood thinners., Date last seen by Dr. Rodriguez was 11/2023., Initials mca. * ROS: G eneral / Constitutional: Patient denies w eakness. R espiratory: Patient denies c hronic cough, shortness of breath, sputum production. C ardiovascular: Patient denies c hest pain, history of [place], irregular heartbeat. M usculoskeletal: Patient complains of [...] (Primary) 2 . U nspecified atherosclerosis of [place] arteries of extremities, bilateral legs - I70.203 [...] * Treatment: 2. U nspecified atherosclerosis of [place] arteries of extremities, bilateral legs Notes: Patient [...] Months * Billing Information: * Visit Code: 47365 Office Visit, Est Pt., Level 3. * Procedure Codes: * AD RECEIVER Sign off status: Completed true * Provider: Eleonora CHUN Date: 03/21/2023 Generated for Leigh quiles/Abram/Kenia on: 0 05/22/2024 [...] Date last seen by Dr. Rodriguez was 11/2023., Initials mca Examination Category Sub-Category Detail Notes [...]
== END 2024-05-22 14:06 | disposition home or self-care (01) ==
LOC: CHSLAB 14:06 → CHSIMG 14:08
PROVIDERS: PCP Internal Medicine; Visit Provider Internal Medicine
DX: M54.50 Low back pain, unspecified (principal); S79.912A Unspecified injury of left hip, initial encounter; M43.06 Spondylolysis, lumbar region; M48.56XA Collapsed vertebra, not elsewhere classified, lumbar region, initial encounter for fracture
CPT/HCPCS: 72100; 73502

== ENCOUNTER 2024-06-03 07:24 | Outpatient (CLI) | payer MEDICARE, SELFPAY ==
--- NOTE | ~2024-06-03 | MR_ITS ---
MRI of the lumbar spine Clinical History: Lumbar radiculopathy Technique: Axial T2-weighted images, and sagittal T1-weighted, T2-weighted, and T2 fat-sat images wer e acquired. Findings: There is no fracture in the lumbar spine. There grade 1 retrolisthesis of L1 over L2, L3 ov er L4, L4 over L5, greatest at L4-L5 measuring 4 mm. No suspicious bone marrow signal abnormality see n. At L1-L2, there is moderate degenerative disc narrowing. No disc bulge or herniation. There is modera te facet hypertrophy. No spinal canal stenosis or neural foraminal narrowing. L2-L3, there is no significant disc bulge or herniation. There is moderate facet hypertrophy. No spin al canal stenosis. There is mild right neural foraminal narrowing. Left neural foramen preserved. At L3-L4, there is moderate degenerative spurring. Diffuse disc bulge and moderate to advanced facet arthropathy are present. There is minimal canal stenosis. There is moderate bilateral neural foramina l narrowing. At L4-L5, there is moderate degenerative distended. Diffuse disc bulge and moderate facet arthropathy are present. No dariusz spinal canal stenosis. There is severe bilateral neural foraminal, right. At L5-S1, there is severe degenerative spurring. There is disc bulge and moderate to advanced facet a rthropathy. No central canal stenosis. There is severe bilateral neural foraminal narrowing, right wo rse than left. Paravertebral soft tissues are unremarkable. Impression: Advanced degenerative spondylosis overall, as detailed above, with multilevel neural foraminal narrow ing. Multiple grade 1 retrolistheses, as above. Reviewed, dictated and finalized at location . Impression: Advanced degenerative spondylosis overall, as detailed above, with multilevel n eural foraminal narrowing. Multiple grade 1 retrolistheses, as above.
--- OUTSIDE RECORDS SUMMARY | 2024-06-03 07:29 | XMS_ITS ---
Author Organization [facility] Address [address] [place], [place] [address] Care Team Providers Care Publication Designer Name Role Phone GENEMathieu NAVID Unavailable [phone] Betty Rodriguez Unavailable Unavailable REASON FOR VISIT [...] Active Encounters Encounter Location Date Provider Diagnosis [address] [id number] 04/05/2024 NAVID ALTAMIRANOOSEASMathieu Tinea unguium B35.1 ; Pain in right toe(s) M79.674 ; Pain in left toe(s) M79.675 and Atherosclerosis of [place] arteries of extremities with intermittent claudication, bilateral [...] toe(s) (ICD-10 - M79.675) 04/05/2024 Atherosclerosis of [place] arteries of extremities with intermittent claudication, bilateral [...] Risk Foot care, sooner if problems arise Progress Notes * Jayesh DINHDOB: 3 (69 yo M)Acc No.[id number]:04/05/2024 Patient: Poncho NELSON Jayesh Provider: Bernardino Stroud DPM :1955 A ge:69 Y S ex:Male Date:04/05/2024 Address:[facility] [address] Subjective: * Chief Complaints: * Ernestina strickland [...] - M79.675 4 . A therosclerosis of [place] arteries of extremities with intermittent claudication, bilateral legs - I70.213 Plan: * Treatment: * Procedure Codes: * Follow Up: 1 0-12 Weeks (Reason: At Risk Foot care, sooner if problems arise) * Billing Information: * Visit Code: 43283 Office Visit, Est Pt., Level 3. * Procedure Codes: * Sign off status: Completed true * Provider: Bernardino Stroud DPM Date: 0 04/05/2024 Generated for Leigh quiles/Abram/Kenia on: 0 06/03/2024 07:29 AM CDT History and Physical Notes * HPI [...]
--- OUTSIDE RECORDS SUMMARY | 2024-06-03 07:29 | XMS_ITS | CONTINUITY OF CARE DOCUMENT ---
Author Name maris pollock Address Unknown Organization [facility] Address [address] [address] [address] [facility] [address] [place] [address] Phone [phone] Care Team Providers Care Instructor Nurse Name Role Phone Fuentse PARRISH, Breann Unavailable [phone] TRINIDAD PARRISH, SAVI Encinas Unavailable FRANCES PARRISH, [place]ST[place] Unavailable INSURANCE PROVIDERS Payer name Policy type / Coverage type [place] red green party ID [employer] OPEN ACCESS Other [id number]
--- OUTSIDE RECORDS SUMMARY | 2024-06-03 07:29 | XMS_ITS | Patient Health Record ---
Author Organization [facility] Address [address] [place], [place] [address] Care Team Providers Care Drying Equipment Operator Name Role Phone NAVID STROUD Unavailable [phone] Betty Rodriguez Unavailable Unavailable MISSAEL CHUN Unavailable [phone] Allergies No Known Allergies Reason For Referral [...] 09/08/2023 Encounters Encounter Location Date Provider Diagnosis [address] [id number] 07/07/2023 MISSAEL CHUN Tinea unguium B35.1 ; Unspecified atherosclerosis of [place] arteries of extremities, bilateral legs I70.203 ; Type 2 diabetes mellitus with diabetic peripheral angiopathy without gangrene E11.51 ; Other hammer toe(s) (acquired), right foot M20.41 ; Other hammer toe(s) (acquired), left foot M20.42 ; Pain in right toe(s) M79.674 and Pain in left toe(s) M79.[address] [id number] 09/08/2023 MISSAEL CHUN Tinea unguium B35.1 ; Unspecified atherosclerosis of [place] arteries of extremities, bilateral legs I70.203 ; Type 2 diabetes mellitus with diabetic peripheral angiopathy without gangrene E11.51 ; Other hammer toe(s) (acquired), right foot M20.41 ; Other hammer toe(s) (acquired), left foot M20.42 ; Pain in right toe(s) M79.674 and Pain in left toe(s) M79.[address] [id number] 11/10/2023 MISSAEL CHUN Tinea unguium B35.1 ; Unspecified atherosclerosis of [place] arteries of extremities, bilateral legs I70.203 ; Type 2 diabetes mellitus with diabetic peripheral angiopathy without gangrene E11.51 ; Other hammer toe(s) (acquired), right foot M20.41 ; Other hammer toe(s) (acquired), left foot M20.42 ; Pain in right toe(s) M79.674 and Pain in left toe(s) M79.[address] [id number] 01/19/2024 MISSAEL CHUN Tinea unguium B35.1 ; Unspecified atherosclerosis of [place] arteries of extremities, bilateral legs I70.203 ; Type 2 diabetes mellitus with diabetic peripheral angiopathy without gangrene E11.51 ; Other hammer toe(s) (acquired), right foot M20.41 ; Other hammer toe(s) (acquired), left foot M20.42 ; Pain in right toe(s) M79.674 and Pain in left toe(s) M79.[address] [id number] 04/05/2024 NAVIDERIC ALTAMIRANOOSAESMathieu Tinea unguium B35.1 ; Pain in right toe(s) M79.674 ; Pain in left toe(s) M79.675 and Atherosclerosis of [place] arteries of extremities with intermittent claudication, bilateral [...] and prescription treatments. 07/07/2023 Unspecified atherosclerosis of [place] arteries of extremities, bilateral legs (ICD-10 - I70.203) Patient educated on risks and aggravating factors of PVD, including conservative treatment options such as a diet and exercise regimen to aid in slowing progression of vascular disease 09/08/2023 Unspecified atherosclerosis of [place] arteries of extremities, bilateral legs (ICD-10 - [...] and prescription treatments. 11/10/2023 Unspecified atherosclerosis of [place] arteries of extremities, bilateral legs (ICD-10 - I70.203) Patient educated on risks and aggravating factors of PVD, including conservative treatment options such as a diet and exercise regimen to aid in slowing progression of vascular disease 01/19/2024 Unspecified atherosclerosis of [place] arteries of extremities, bilateral legs (ICD-10 - [...] foot (ICD-10 - M20.41) 04/05/2024 Atherosclerosis of [place] arteries of extremities with intermittent claudication, bilateral [...] toe(s) (ICD-10 - M79.675) Plan Of Treatment No Information Insurance Providers Payer Name Payer Address Payer Phone Subscriber Number Group Number Insured Name Patient Relationship to Insured Coverage Start Date Coverage End Date [employer] [address] [place] [phone] [id number] Jayesh DINH Self - patient is the insured
--- OUTSIDE RECORDS SUMMARY | 2024-06-03 07:29 | XMS_ITS ---
Author Organization [facility] Address [address] [place], [place] [id number] Care Team Providers Care Agricultural Research Director Name Role Phone NAVID STROUD Unavailable [phone] Betty Rodriguez Unavailable Unavailable MISSAEL CHUN Unavailable [phone] REASON FOR VISIT *General care Medications Medication SIG (Take, Route, Frequency, Duration) Notes Start Date End Date Status Lisinopril-hydroCHLOROthiaz teresita 10-12.5 MG Oral for 90 Days Active Amoxicillin-Pot Clavulanate 875-125 MG Oral for 5 Days Active Atorvastatin Calcium 40 MG Oral for 90 Days Active Encounters Encounter Location Date Provider Diagnosis [address] [id number] 01/19/2024 MISSAEL CHUN Tinea unguium B35.1 ; Unspecified atherosclerosis of andreafski arteries of extremities, bilateral legs I70.203 ; [...] and prescription treatments. 01/19/2024 Unspecified atherosclerosis of andreafski arteries of extremities, bilateral legs (ICD-10 - [...] OTC and prescription treatments. Unspecified atherosclerosis of andreafski arteries of extremities, bilateral legs Patient educated [...] Appt Details Follow Up: 3 Months, Reason: Progress Notes * Jayesh DINHDOB: 3 (68 yo M)Acc No.[id number]:01/19/2024 Patient: Jayesh CRUZ Provider: Eleonora CHUN :1955 A ge:68 Y S ex:Male Date:01/19/2024 Address:[address] [place] [address] [id number] Subjective: * Chief Complaints: * 1 . *General care. * HPI: H PI: General care P atient presents to the office for diabetic foot care. Patient states that their nails are thickened, elongated and painful. Patient states that it is aggravated by shoe gear. Onset is gradual., Patient denies taking blood thinners., Date last seen by Dr. Rodriguez was 11/2023., Initials [facility]. * ROS: G eneral / Constitutional: Patient denies w eakness. R espiratory: Patient denies c hronic cough, shortness of breath, sputum production. C ardiovascular: Patient denies c hest pain, history of [place], irregular heartbeat. M usculoskeletal: Patient complains of [...] (Primary) 2 . U nspecified atherosclerosis of andreafski arteries of extremities, bilateral legs - I70.203 [...] * Treatment: 2. U nspecified atherosclerosis of andreafski arteries of extremities, bilateral legs Notes: Patient [...] Months * Billing Information: * Visit Code: 14146 Office Visit, Est Pt., Level 3. * Procedure Codes: * N YARN DYER HELPER Sign off status: Completed true * Provider: Eleonora CHUN Date: 1 03/21/2023 Generated for Leigh quiles/Abram/Kenia on: 0 06/03/2024 [...]
--- OUTSIDE RECORDS SUMMARY | 2024-06-03 07:29 | XMS_ITS ---
Author Organization [facility] Address [address] [place], [place] [id number] Care Team Providers Care Tester Armature Or Fields Name Role Phone NAVID STROUD Unavailable [phone] Betty Rodriguez Unavailable Unavailable MISSAEL CHUN Unavailable [phone] REASON FOR VISIT *General care Medications Medication SIG (Take, Route, Frequency, Duration) Notes Start Date End Date Status Amoxicillin-Pot Clavulanate 875-125 MG Oral for 5 Days Active Atorvastatin Calcium 40 MG Oral for 90 Days Active Lisinopril-hydroCHLOROthiaz teresita 10-12.5 MG Oral for 90 Days Active Encounters Encounter Location Date Provider Diagnosis [address] [id number] 11/10/2023 MISSAEL CHUN Tinea unguium B35.1 ; Unspecified atherosclerosis of kaguy[place] arteries of extremities, bilateral legs I70.203 ; [...] and prescription treatments. 11/10/2023 Unspecified atherosclerosis of kaguyuk arteries of extremities, bilateral legs (ICD-10 - [...] OTC and prescription treatments. Unspecified atherosclerosis of kaguyuk arteries of extremities, bilateral legs Patient educated [...] * Jayesh DINHDOB: 3 (68 yo M)Acc No.[id number]:11/10/2023 Patient: Jayesh CRUZ Provider: Eleonora CHUN :1955 A ge:68 Y S ex:Male Date:11/10/2023 Address:[address] [place] [address] [phone] Subjective: * Chief Complaints: * 1 . *General care. * HPI: H PI: General care P atient presents to the office for diabetic foot care. Patient states that their nails are thickened, elongated and painful. Patient states that it is aggravated by shoe gear. Onset is gradual., Patient denies taking blood thinners., Date last seen by Dr. Rodriguez was 10/2023., Initials [facility]. * ROS: G eneral / Constitutional: Patient denies w eakness. R espiratory: Patient denies c hronic cough, shortness of breath, sputum production. C ardiovascular: Patient denies c hest pain, history of [place], irregular heartbeat. M usculoskeletal: Patient complains of [...] (Primary) 2 . U nspecified atherosclerosis of kaguy[place] arteries of extremities, bilateral legs - I70.203 [...] * Treatment: 2. U nspecified atherosclerosis of kaguyuk arteries of extremities, bilateral legs Notes: Patient [...] Months * Billing Information: * Visit Code: 32731 Office Visit, Est Pt., Level 3. * Procedure Codes: * Sign off status: Completed true * Provider: Eleonora CHUN Date: 0 11/10/2023 Generated for Leigh quiles/Abram/Kenia on: 0 06/03/2024 07:28 AM CDT History and Physical Notes * [...]
--- OUTSIDE RECORDS SUMMARY | 2024-06-03 07:29 | XMS_ITS | Clinical Summary ---
Author Organization [facility] Address [address] [place] [address] Care Team Providers Care Director Shopper Marketing Name Role Phone Betty Rodriguez MD Primary Care Provider Source Comments [facility],non-owned Affiliates and Associated Physician Practices is amultiple site organization consisting of ambulatory clinics and hospital sitesin [place], [place], [place] and [place]. This disclosure is being madepursuant to the Care Everywhere program and may not contain all information available regarding this patient. Last updated 17.[facility] Allergies No known active allergies Medications * Be aware that medications may not be up to date on this document. Alwaysverify current medications with the patient. Calcium Carbonate (CALCIUM 600 PO) Take 600 [...] decreasing dose, currently 2 capsules daily Active Active Problems Problem Noted Date Diagnosed Date Morbid obesity 01/17/2023 Encounters Date Type Department Care Team Description 05/03/2024 9:30 AM CDT Office Visit [facility] [address] [place] [address] Eliana Enriquez MD Status post laparoscopic sleeve gastrectomy (Primary Dx) 05/03/2024 Telephone [facility] [address] [place] [address] Eliana Enriquez MD Record Request 04/25/2024 11:52 AM CDT Anesthesia Event [facility] [address] [place] [address] Halina Lindsay MD 04/25/2024 11:45 AM CDT - 04/25/2024 12:[address] [facility] [address] [place] [address] Eliana Enriquez MD ESOPHAGOGASTRODUODENOSCOPY WITH BIOPSY 04/25/2024 8:17 AM CDT - 04/25/2024 12:46 PM CDT Hospital Encounter [facility] Op [address] [place] [address] Eliana Enriquez MD Surgery General Discharge Disposition: Home or Self Care 04/25/2024 Travel 04/20/2024 Travel 04/01/2024 Orders Only [facility] [address] [place] [address] Anusha Campa, OIL HEAT TECHNICIAN-BARREL PLATER Overweight with body mass index (BMI) of [...] Recorded Sex Assigned at Not on file Legal Sex Male 11:12 AM CDT Gender Identity Not on file Sexual Orientation [...] Oxygen Concentration 21% 01/17/2023 1 1:15 PM TRIMMER OPERATOR THREE KNIFE Weight 93.5 kg (206 lb 1.6 oz) 05/03/2024 8:00 A M CDT Height 182.9 cm (6') 05/03/2024 8:00 AM CDT Body Mass Index 27.95 05/03/2024 8:00 AM CDT Plan of Treatment Upcoming Encounters Date Type Department Care Team (Late st Contact Info) Description 07/19/2024 9:00 AM CDT Office Visit [facility] [address] [place] [phone] Anusha Campa APRN-BARREL PLATER [address] [place], [place] [phone] 01/17/2025 9:30 AM TRIMMER OPERATOR THREE KNIFE Office Visit [facility] [address] [place] [phone] Eliana Enriquez MD [address] [place] [phone] 01/18/2025 9:00 AM TRIMMER OPERATOR THREE KNIFE Clinical Support [facility] [address] [place] [phone] 01/18/2025 9:30 AM TRIMMER OPERATOR THREE KNIFE Office Visit [facility] [address] [place] [phone] Anusha Campa, OIL HEAT TECHNICIAN-BARREL PLATER [address] [place] [address] Health Maintenance Due Date Last Done Comments [...] 11/12/2032 11/12/2022 DEPRESSION SCREENING Completed 05/03/2024, 05/11/19 24 HEPATITIS B VACCINE Aged Out No longe [...] this topic Medical Devices Implanted Type Area Athletic Monitor Device Identifier Shelf Expiration Date Model / Serial / Lot Kit Tissue Clsr Duo Tssl 1 Prefl [facility] - [id number] Implanted:Qty: 1 on 01/17/2023 by Eliana Enriquez MD at [facility] [employer] 09/13/2024 [id number] / [id number] / [id number] Procedures Procedure Name Priority Date/Time Associated Diagnosis Comments CARDIAC RHYTHM STRIP ORDER 04/26/2024 2:03 PM CDT GROSS + MICRO EXAM (ILL) Routine 04/25/2024 12:02 PM CDT Status post bariatric surgery [place] EGD FLEX TRANSORAL W BX SNGL OR [...] PM CDT Ordered by an unspecified provider. us Scanned Document CARDIAC SERVICES ORDERABLES Fin al Result * GROSS + MICRO EXAM (ILL) (04/25/2024 12:02 PM CDT) Case Report Surgical Pathology Report Case: [id number] Authorizing Provider: Eliana Enriquez MD Collected: 04/25/2024 12:02 PM Ordering Location: [facility] Received: 04/26/2024 09:28 AM Hospital - Dena Op Pathologist: Yury Castellon MD Specimen: Gastric Biopsy, Antrum Biopsy to rule out h-Pylori 04/30/2024 1:45 PM CDT [facility] Final Diagnosis A. Stomach, antrum, biopsy: - Mild chronic inactive gastritis - Focal intestinal metaplasia - Negative for dysplasia - Immunostain for H.pylori is negative 04/30/2024 1:45 PM [facility] Microscopic Description and Comment Microscopic examination is performed and substantiates the above diagnosis. 04/30/2024 1:45 PM T [facility] Clinical History Status post bariatric surgery. Biopsy of normal appearing antrum to rule out H.pylori 04/30/2024 1:45 PM [facility] Gross Description A. The requisition and specimen(s) are identified with the patient's name (Stanley Dinh), MRN, and . Received in formalin labeled antrum biopsy to rule out H-pylori , are 2 cordero-pink soft tissue fragments, 0.2 and 0.3 cm in greatest dimension. The specimen is submitted in toto in cassette A1. AW 04/30/2024 1:45 PM [facility] Pathologist Location at [facility] 04/30/2024 1:45 PM T [facility] Disclaimer The performance characteristics of all immunohistochemical and indirect immunofluorescence stains (if any) cited in this report were determined by the Histopathology Laboratory of [facility]. Some of these tests were [...] H&E slides and special stains prepared at [facility], [place]. [address] (CLIA# [id number]) unless otherwise specified. This case was interpreted by the [facility] Department of Pathology. When applicable, select reference laboratory testing is performed at the [facility], [address] [place] [address]. 04/30/2024 1:45 PM [facility] Embedded Images 04/30/2024 1:45 PM [facility] Pathology/Cytolog y GASTRIC BIOPSY SPECIMEN / Unknown 04/25/2024 12:02 PM CDT 04/26/2024 9:28 AM CDT Comment:Pre-op diagnosis: Status post bariatric surgery [Z98.84] Result [facility] Eliana Enriquez MD LAB - PATHOLOGY/CYTOLOGY ORDERABLES Final Result Performing Organization Address [facility]/ZIP Co de Phone Number [facility] [address] * COMPREHENSIVE METABOLIC PANEL (07/21/2023) Blood BLOOD SPECIMEN / Unknown 07/21/2023 Shanel Ware APRN-BARREL PLATER LAB - CHEMISTRY O RDERABLES Final Result Performing Organization Address [facility] Co de Phone Number OTHER LAB * LIPID PROFILE (07/21/2023) Blood BLOOD SPECIMEN / Unknown 07/21/2023 Shanel Ware OIL HEAT TECHNICIAN-BARREL PLATER LAB - CHEMISTRY O RDERABLES Edited Result - Final Performing Organization Address City/[facility] Co de Phone Number OTHER LAB from Last 3 Months or Most Recently Relevant to Health Maintenance Insurance [facility] Address: [facility] [id number] [place] [address] [employer] ADV AETNA MEDICARE ADV SELF PAY NO INSURANCE Member Subscriber Plan / Payer (Ef fective for All Dates) Name:Stanley Dinh Member ID:Not on file Relation to Subscriber:Not on file Name:STANLEY DINH Subscriber ID:Not on file (Home) Address: [address] [place] [address] Payer ID:Not on file Group ID:Not on file Type:Self Pay Address: [place], [place] Advance Directives Documents on File Type Date Recorded Patient Tetryl Wringer Operator Expl 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 Power of Attorne y for Healthcare * Full Code (Latest Code Status on File) Date Activated Date Inactivated Comments 01/17/2023 12:21 PM 01/18/2023 3:25 PM Care Teams Director Shopper Marketing Relationship Specialty Start Date End Date Betty Rodriguez MD [address] [place] [address] PCP - General Internal Medicine 09/02/22
== END 2024-06-03 07:25 | disposition home or self-care (01) ==
PROVIDERS: PCP Internal Medicine; Visit Provider Internal Medicine
DX: M47.26 Other spondylosis with radiculopathy, lumbar region (principal)
CPT/HCPCS: 72148

== ENCOUNTER 2024-06-13 12:54 | Outpatient (CLI) | payer MEDICARE, SELFPAY ==
--- NOTE | 2024-06-13 13:02 | ECHO_ITS ---
Patient Info Name: Jayesh Anderson Age: 69 years : 1955 Gender: Male Ht: 72 in Wt: 209 lbs BSA: 2.21 m2 HR: 63 bpm BP: 140 / 79 mmHg Technical Quality: Good Exam Date: 06/13/2024 1:15 PM Exam Location: Echo Lab Patient Status: Outpatient Admit Date: 06/13/2024 Staff Ordering Physician: Oseas Rick DO Snack Steward: Sarah Culp RDCS Attending Provider: Oseas Rick DO Referring Physician: Prabhjot SEGOVIA; Exam Type: CA echo doppler color flow Study Info Indications I35.0 - Nonrheumatic aortic (valve) stenosis Complete two-dimensional, color flow and Doppler transthoracic echocardiogram is performed. Summary 1. Complete two-dimensional, color flow and Doppler transthoracic echocardiogram is performed. 2. Left ventricular chamber dimension is mildly enlarged. 3. Left ventricular systolic function is normal, estimated at 55-60%. 4. The left ventricular diastolic function is grade I diastolic dysfunction. 5. E/e' 10 is mildly elevated. 6. Left atrial chamber dimension is mildly enlarged. 7. Right atrial chamber dimension is mildly enlarged. 8. There is moderate aortic valve sclerosis. 9. There is mild aortic valve stenosis with a peak velocity of 238 cm/s, mean gradient of 13 mmHg, and aortic valve area of 2.0 cm2. 10. There is trace aortic valve regurgitation. 11. The mitral valve has mildly calcified annulus. 12. There is trace mitral valve regurgitation. 13. There is trace tricuspid valve regurgitation. 14. No pulmonary hypertension, estimated pulmonary arterial systolic pressure is 25 mmHg. 15. There is trace pulmonic regurgitation. Left Ventricle E/e' 10 is mildly elevated. Left ventricular chamber dimension is mildly enlarged. Left ventricular systolic function is normal, estimated at 55-60%. The left ventricular diastolic function is grade I diastolic dysfunction. Right Ventricle Right ventricular systolic function is normal and with normal TAPSE 2.5 cm. Right ventricular chamber dimension is normal. Left Atria Left atrial chamber dimension is mildly enlarged. Right Atria Right atrial chamber dimension is mildly enlarged. Aortic Valve The aortic valve is trileaflet. There is moderate aortic valve sclerosis. There is mild aortic valve stenosis with a peak velocity of 238 cm/s, mean gradient of 13 mmHg, and aortic valve area of 2.0 cm2. There is trace aortic valve regurgitation. Pulmonic Valve There is trace pulmonic regurgitation. Mitral Valve The mitral valve has mildly calcified annulus. There is no mitral valve stenosis. There is trace mitral valve regurgitation. Tricuspid Valve There is trace tricuspid valve regurgitation. No pulmonary hypertension, estimated pulmonary arterial systolic pressure is 25 mmHg. Pericardium/Pleural There is no pericardial effusion. Inferior Vena Cava Normal inferior vena cava with >50% collapse upon inspiration consistent with normal right atrial pressure, 5 mmHg. Aorta The aortic root size at the sinus of Valsalva is normal. Left Ventricular Outflow Tract Name Value Normal LVOT 2D LVOT Diameter 2.3 cm LVOT Doppler LVOT Peak Gradient 4 mmHg LVOT Mean Gradient 2 mmHg LVOT VTI 24 cm LVOT VTI/AV VTI Ratio 0.5 LVOT Stroke Volume 102 ml LVOT CO 19.0 l/min LVOT CI 8.6 l/min/m2 Pulmonic Valve Name Value Normal PV Doppler PV Peak Gradient 2 mmHg Mitral Valve Name Value Normal MV Doppler MV Decel Quay 389 cm/s2 MV PHT 64 ms MV Area (PHT) 3.4 cm2 4.0-5.0 MV Diastolic Function MV E Peak Velocity 86 cm/s MV A Peak Velocity 124 cm/s MV E/A 0.7 MV Decel Time 220 ms MV Annular TDI MV E/e' (Septal) 10.0 <=8.0 MV E/e' (Lateral) 10.1 <=8.0 MV E/e' (Average) 10.0 Tricuspid Valve Name Value Normal TV Regurgitation Doppler TR Peak Velocity 224 cm/s TR Peak Gradient 20 mmHg Estimated PAP/RSVP RA Pressure 5 mmHg <=5 PA Systolic Pressure 25 mmHg <36 RV Systolic Pressure 25 mmHg <36 Aorta Name Value Normal Ascending Aorta Ao Root Diameter (MM) 3.7 cm Ao Root Diam Index (MM) 1.7 cm/m2 Aortic Valve Name Value Normal AV Doppler AV Peak Velocity 238 cm/s AV Peak Gradient 22 mmHg AV Mean Gradient 13 mmHg AV VTI 50 cm AV Area (Cont Eq VTI) 2.0 cm2 >=3.0 AV Area (Cont Eq Samy) 1.7 cm2 AV Regurgitation 2D LVOT Area 4.2 cm2 AV Regurgitation Doppler AR Decel Time 3,253 ms AR Decel Quay 71 cm/s2 AR PHT 943 ms Ventricles Name Value Normal LV Dimensions 2D/MM IVS Diastolic Thickness (2D) 1.0 cm 0.6-1.0 LVID Diastole (2D) 5.5 cm 4.2-5.8 LVIW Diastolic Thickness (2D) 1.0 cm 0.6-1.0 LVID Systole (2D) 3.5 cm 2.5-4.0 LVOT Diameter 2.3 cm LV Mass (2D Cubed) 226.61 g 88.00-224.00 LV Mass Index (2D Cubed) 102 g/m2 49-115 Relative Wall Thickness (2D) 0.38 LV Fractional Shortening/Ejection Fraction 2D/MM LV Fractional Shortening (2D) 37 % 25-43 LV EF (2D Teicholz) 66 % 52-72 LV Diastolic Volume (4C MOD) 148 ml LV EF (4C MOD) 53 % LV Diastolic Volume (2C MOD) 152 ml LV EF (2C MOD) 56 % LV Diastolic Volume (BP MOD) 153 ml 62-150 LV Diastolic Volume Index (BP MOD) 69 ml/m2 34-74 LV Systolic Volume (BP MOD) 68 ml 21-61 LV Systolic Volume Index (BP MOD) 31 ml/m2 11-31 LV EF (BP MOD) 56 % 52-72 LV Diastolic Length (4C) 8.2 cm LV Systolic Length (4C) 7.4 cm LV Stroke Volume (4C MOD) 78 ml RV Dimensions 2D/MM RVID Diastole (2D) 4.7 cm 2.5-3.5 Atria Name Value Normal LA Dimensions LA Volume (4C A-L) 67 ml LA Volume (BP A-L) 68 ml RA Dimensions RA Area (4C) 20.2 cm2 <=18.0 Report Signatures
--- OUTSIDE RECORDS SUMMARY | 2024-06-13 13:47 | XMS_ITS | Clinical Summary ---
Author Organization [facility] Address [address] [place] [address] Care Team Providers Care Key Entry Operator Name Role Phone Betty Rodriguez MD Primary Care Provider [phone] Source Comments [facility],non-owned Affiliates and Associated Physician Practices is amultiple site organization consisting of ambulatory clinics and hospital sitesin [place], [place], [place] and [place]. This disclosure is being madepursuant to the Care Everywhere program and may not contain all information available regarding this patient. Last updated 17.[facility] Allergies No known active allergies Medications * [...] Description 05/03/2024 9:30 AM CDT Office Visit [facility] [address] [place] [address] Eliana Enriquez MD Status post laparoscopic sleeve gastrectomy (Primary Dx) 05/03/2024 Telephone [facility] [address] [place] [address] Eliana Enriquez MD Record Request 04/25/2024 11:52 AM CDT Anesthesia Event [facility] [address] [place] [address] Halina Lindsay MD 04/25/2024 11:45 AM CDT - 04/25/2024 12:11 PM CDT Surgery [facility] [address] [place] [address] Eliana Enriquez MD ESOPHAGOGASTRODUODENOSCOPY WITH BIOPSY 04/25/2024 8:17 AM CDT - 04/25/2024 12:46 PM CDT Hospital Encounter [facility] Op [address] [place] [address] Eliana Enriquez MD Surgery General Discharge Disposition: Home or Self Care 04/25/2024 Travel 04/20/2024 Travel 04/01/2024 Orders Only [facility] [address] [place] [address] Anusha Campa, TRANSIT DEPARTMENT CLERK-PULMONOLOGIST/INTENSIVIST Overweight with body mass index (BMI) of [...] Oxygen Concentration 21% 01/17/2023 1 1:15 PM SEMICOND[employer]CTOR PACKAGES SEALER Weight 93.5 kg (206 lb 1.6 oz) 05/03/2024 8:00 A M CDT Height 182.9 cm (6') 05/03/2024 8:00 AM CDT Body Mass Index 27.95 05/03/2024 8:00 AM CDT Plan of Treatment Upcoming Encounters Date Type Department Care Team (Late st Contact Info) Description 07/19/2024 9:00 AM CDT Office Visit [facility] [address] [place] [phone] Anusha Campa APRN-PULMONOLOGIST/INTENSIVIST [address], [place] [address] 01/17/2025 9:30 AM SEMICOND[employer] PACK[employer] SEALER Office Visit [facility] [address] [place] [phone] Eliana Enriquez MD [address] [place] [phone] 01/18/2025 9:00 AM [employer]IC[employer] P[employer] SEALER Clinical Support [facility] [address] [place] [address] 01/18/2025 9:30 AM SEMIC[employer] PACK[employer] SEALER Office Visit [facility] [address] [place] [phone] Anusha Campa, TRANSIT DEPARTMENT CLERK-PULMONOLOGIST/INTENSIVIST [address] [place] [address] Health Maintenance Due Date Last Done Comments [...] this topic Medical Devices Implanted Type Area Formal Service Waiter Device Identifier Shelf Expiration Date Model / Serial / Lot Kit Tissue Clsr Duo Tssl 1 Prefl [facility] - [id number] Implanted:Qty: 1 on 01/17/2023 by Eliana Enriquez MD at [facility] [employer] 09/13/2024 [id number] / [id number] / [id number] Procedures Procedure Name Priority Date/Time Associated Diagnosis Comments CARDIAC RHYTHM STRIP ORDER 04/26/2024 2:03 PM CDT GROSS + MICRO EXAM (ILL) Routine 04/25/2024 12:02 PM CDT Status post bariatric surgery [place] EGD FLEX TRANSORAL W BX SNGL [...] CDT) Case Report Surgical Pathology Report Case: [id number] Authorizing Provider: Eliana Enriquez MD Collected: 04/25/2024 12:02 PM Ordering Location: [facility] Received: 04/26/2024 09:28 AM Hospital - [facility] Pathologist: Yury Castellon MD Specimen: Gastric Biopsy, Antrum Biopsy to rule out h-Pylori 04/30/2024 1:45 PM CDT [facility] Final Diagnosis A. Stomach, antrum, biopsy: - Mild chronic inactive gastritis - Focal intestinal metaplasia - Negative for dysplasia - Immunostain for H.pylori is negative 04/30/2024 1:45 PM [facility] Microscopic Description and Comment Microscopic examination is performed and substantiates the above diagnosis. 04/30/2024 1:45 PM T [facility] Clinical History Status post bariatric surgery. Biopsy of normal appearing antrum to rule out H.pylori 04/30/2024 1:45 PM [facility] Gross Description A. The requisition and specimen(s) are identified with the patient's name (Stanley Dinh), MRN, and . Received in formalin labeled antrum biopsy to rule out H-pylori , are 2 cordero-pink soft tissue fragments, 0.2 and 0.3 cm in greatest dimension. The specimen is submitted in toto in cassette A1. AW 04/30/2024 1:45 PM [facility] Pathologist Location at [facility] 04/30/2024 1:45 PM T [facility] Disclaimer The performance characteristics of all immunohistochemical and indirect immunofluorescence stains (if any) cited in this report were determined by the Histopathology Laboratory of [facility]. Some of these tests [...] slides and special stains prepared at [facility], [place]. [address] (CLIA# [id number]) unless otherwise specified. This case was interpreted by the [facility] Department of Pathology. When applicable, select reference laboratory testing is performed at the [facility], [address] [place] [address]. 04/30/2024 1:45 PM [facility] Embedded Images 04/30/2024 1:45 PM [facility] Pathology/Cytolog y GASTRIC BIOPSY SPECIMEN / Unknown 04/25/2024 12:02 PM CDT 04/26/2024 9:28 AM CDT Comment:Pre-op diagnosis: Status post bariatric surgery [Z98.84] Result [facility] Eliana Enriquez MD LAB - PATHOLOGY/CYTOLOGY ORDERABLES Final Result Performing Organization Address [facility]/ZIP Co de Phone Number [facility] [address] * COMPREHENSIVE METABOLIC PANEL (07/21/2023) Blood BLOOD SPECIMEN / Unknown 07/21/2023 Shanel Ware APRN-PULMONOLOGIST/INTENSIVIST LAB - CHEMISTRY O RDERABLES Final Result Performing Organization Address [facility] Co de Phone Number OTHER LAB * LIPID PROFILE (07/21/2023) Blood BLOOD SPECIMEN / Unknown 07/21/2023 Shanel Ware TRANSIT DEPARTMENT CLERK-PULMONOLOGIST/INTENSIVIST LAB - CHEMISTRY O RDERABLES Edited Result - Final Performing Organization Address City/[facility] Co de Phone Number OTHER LAB from Last 3 Months or Most Recently Relevant to Health Maintenance Insurance HE[employer]LINK HEALTHLINK AETNA MEDICARE ADV AETNA MEDICARE ADV SELF PAY NO INSURANCE Member Subscriber Plan / Payer (Ef fective for All Dates) Name:Stanley Dinh Member ID:Not on file Relation to Subscriber:Not on file Name:STANLEY DINH Subscriber ID:Not on file (Home) Address: [address] [place] [address] Payer ID:Not on file Group ID:Not on file Type:Self Pay Address: [place], [place] Advance Directives Documents on File Type Date Recorded Patient [employer] Counter Associate Expl 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 Power of Attorne y for Healthcare * Full Code (Latest Code Status on File) Date Activated Date Inactivated Comments 01/17/2023 12:21 PM 01/18/2023 3:25 PM Care Teams Key Entry Operator Relationship Specialty Start Date End Date Betty Rodriguez MD [address] [place] [address] PCP - General Internal Medicine 09/02/22
--- OUTSIDE RECORDS SUMMARY | 2024-06-13 13:47 | XMS_ITS ---
Author Organization [facility] Address [address] [place], [place] [id number] Care Team Providers Care Speech Professor Name Role Phone GENEMathieu NAVID Unavailable [phone] Betty Rodriguez Unavailable Unavailable REASON FOR VISIT [...] Active Encounters Encounter Location Date Provider Diagnosis [address] [id number] 04/05/2024 NAVID ALTAMIRANOOSEASMathieu Tinea unguium B35.1 ; Pain in right toe(s) M79.674 ; Pain in left toe(s) M79.675 and Atherosclerosis of [place] arteries of extremities with intermittent claudication, bilateral [...] toe(s) (ICD-10 - M79.675) 04/05/2024 Atherosclerosis of hamilton arteries of extremities with intermittent claudication, bilateral [...] Foot care, sooner if problems arise Provider Name:RHOINI CARDOSO, 06/28/2024 09:10:00 AM, [address] [place] [address], [id number], Progress Notes * Jayesh DINHDOB: 3 (69 yo M)Acc No.[id number]:04/05/2024 Patient: Jayesh CRUZ Provider: Bernardino Stroud DPM :1955 A ge:69 Y S ex:Male Date:04/05/2024 Address:[address] [place] [address] [facility] Subjective: * Chief Complaints: * Ernestina strickland [...] - M79.675 4 . A therosclerosis of hamilton arteries of extremities with intermittent claudication, bilateral legs - I70.213 Plan: * Treatment: * Procedure Codes: * Follow Up: 1 0-12 Weeks (Reason: At Risk Foot care, sooner if problems arise) * Billing Information: * Visit Code: 58881 Office Visit, Est Pt., Level 3. * Procedure Codes: * Sign off status: Completed true * Provider: Bernardino Stroud DPM Date: 0 04/05/2024 Generated for Adami kb/Abram/eTransmitting on: 0 06/13/2024 01:47 PM CDT History and Physical Notes * [...]
--- OUTSIDE RECORDS SUMMARY | 2024-06-13 13:48 | XMS_ITS | CONTINUITY OF CARE DOCUMENT ---
Author Name maris pollock Address Unknown Organization [facility] Address [address] [place] [address] Phone [phone] Care Team Providers Care Quality Control Associate Name Role Phone Fuentes PARRISH, Breann Unavailable TRINIDAD PARRISH, SAVI Encinas Unavailable FRANCES PARRISH, WESTON Unavailable [phone] INSURANCE PROVIDERS Payer name Policy type / Coverage type Devol red republican ID HEALTHLINK OPEN ACCESS Other [id number]
--- OUTSIDE RECORDS SUMMARY | 2024-06-13 13:48 | XMS_ITS ---
Author Organization [facility] Address [address] [place], [place] [address] Care Team Providers Care Insurance Loss Assessor Name Role Phone NAVID STROUD Unavailable [phone] Betty Rodriguez Unavailable Unavailable ROHINI ROMAN Unavailable [phone] REASON FOR VISIT *General care Encounters Encounter Location Date Provider Diagnosis [address] [id number] 06/07/2024 ROHINI ROMAN Plan Of Treatment Next Appt Details Provider Name:ROHINI CARDOSO, 06/28/2024 09:10:00 AM, [address] [place] [address], [id number], Progress Notes * Jayesh DINHDOB: 3 (69 yo M)Acc No.[id number]:06/07/2024 Patient: Poncho OMAR Jayesh Provider: Poncho ROMAN :1955 A ge:69 Y S ex:Male Date:06/07/2024 Address:[facility] [address] [id number] Subjective: * Chief Complaints: * 1 . *General care. * Medical History: Objective: * Vitals: Assessment: Plan: * Treatment: * Billing Information: * Visit Code: * Procedure Codes: * Electronic signature of KOTA ROMAN DPM on 06/13/2024 at 01:48 PM CDT Sign off status: Pending * Provider: Poncho ROMAN Date: 0 06/07/2024 Generated for Adami ng/Faelhamg/eTransmitting on: 0 06/13/2024 01:48 PM CDT
--- OUTSIDE RECORDS SUMMARY | 2024-06-13 13:48 | XMS_ITS | Patient Health Record ---
Author Organization [facility] Address [address] [place], [place] [id number] Care Team Providers Care General Intern Name Role Phone NAVID STROUD Unavailable [phone] Betty Rodriguez Unavailable Unavailable MISSAEL CHUN Unavailable [phone] ROHINI ROMAN Unavailable [phone] Allergies No Known Allergies Reason For Referral [...] 09/08/2023 Encounters Encounter Location Date Provider Diagnosis [address] [id number] 07/07/2023 MISSAEL CHUN Tinea unguium B35.1 ; Unspecified atherosclerosis of squax[place] arteries of extremities, bilateral legs I70.203 ; Type 2 diabetes mellitus with diabetic peripheral angiopathy without gangrene E11.51 ; Other hammer toe(s) (acquired), right foot M20.41 ; Other hammer toe(s) (acquired), left foot M20.42 ; Pain in right toe(s) M79.674 and Pain in left toe(s) M79.[address] [id number] 09/08/2023 MISSAEL CHUN Tinea unguium B35.1 ; Unspecified atherosclerosis of [place] arteries of extremities, bilateral legs I70.203 ; Type 2 diabetes mellitus with diabetic peripheral angiopathy without gangrene E11.51 ; Other hammer toe(s) (acquired), right foot M20.41 ; Other hammer toe(s) (acquired), left foot M20.42 ; Pain in right toe(s) M79.674 and Pain in left toe(s) M79.[address] [id number] 11/10/2023 MISSAEL CHUN Tinea unguium B35.1 ; Unspecified atherosclerosis of [place] arteries of extremities, bilateral legs I70.203 ; Type 2 diabetes mellitus with diabetic peripheral angiopathy without gangrene E11.51 ; Other hammer toe(s) (acquired), right foot M20.41 ; Other hammer toe(s) (acquired), left foot M20.42 ; Pain in right toe(s) M79.674 and Pain in left toe(s) M79.[address] [id number] 01/19/2024 MISSAEL CHUN Tinea unguium B35.1 ; Unspecified atherosclerosis of [place] arteries of extremities, bilateral legs I70.203 ; Type 2 diabetes mellitus with diabetic peripheral angiopathy without gangrene E11.51 ; Other hammer toe(s) (acquired), right foot M20.41 ; Other hammer toe(s) (acquired), left foot M20.42 ; Pain in right toe(s) M79.674 and Pain in left toe(s) M79.[address] [id number] 04/05/2024 NAVID STROUD Tinea unguium B35.1 ; Pain in right toe(s) M79.674 ; Pain in left toe(s) M79.675 and Atherosclerosis of squax[place] arteries of extremities with intermittent claudication, bilateral [...] and prescription treatments. 07/07/2023 Unspecified atherosclerosis of squax[place] arteries of extremities, bilateral legs (ICD-10 - I70.203) Patient educated on risks and aggravating factors of PVD, including conservative treatment options such as a diet and exercise regimen to aid in slowing progression of vascular disease 09/08/2023 Unspecified atherosclerosis of squax[place] arteries of extremities, bilateral legs (ICD-10 - [...] and prescription treatments. 11/10/2023 Unspecified atherosclerosis of [place] arteries of extremities, bilateral legs (ICD-10 - I70.203) Patient educated on risks and aggravating factors of PVD, including conservative treatment options such as a diet and exercise regimen to aid in slowing progression of vascular disease 01/19/2024 Unspecified atherosclerosis of [place] arteries of extremities, bilateral legs (ICD-10 - [...] foot (ICD-10 - M20.41) 04/05/2024 Atherosclerosis of squaxin arteries of extremities with intermittent claudication, bilateral [...] Details Provider Name:ROHINI CARDOSO, 06/28/2024 09:10:00 AM, [address] [place] [address], [id number], Insurance Providers Payer Name Payer Address Payer Phone Subscriber Number Group Number Insured Name Patient Relationship to Insured Coverage Start Date Coverage End Date Aet[employer] [address] [facility] [place] [phone] [id number] Jayesh DINH Self - patient is the insured
--- OUTSIDE RECORDS SUMMARY | 2024-06-13 13:48 | XMS_ITS ---
Author Organization [facility] Address [address] [place], [place] [id number] Care Team Providers Care Occupational Therapy Program Director Name Role Phone NAVID STROUD Unavailable [phone] Betty Rodriguez Unavailable Unavailable MISSAEL CHUN Unavailable [phone] REASON FOR VISIT *General care Medications Medication SIG (Take, Route, Frequency, Duration) Notes Start Date End Date Status Lisinopril-hydroCHLOROthiaz teresita 10-12.5 MG Oral for 90 Days Active Amoxicillin-Pot Clavulanate 875-125 MG Oral for 5 Days Active Atorvastatin Calcium 40 MG Oral for 90 Days Active Encounters Encounter Location Date Provider Diagnosis [address] [id number] 01/19/2024 MISSAEL CHUN Tinea unguium B35.1 ; Unspecified atherosclerosis of [place] arteries of extremities, bilateral legs I70.203 ; [...] and prescription treatments. 01/19/2024 Unspecified atherosclerosis of [place] arteries of extremities, bilateral legs (ICD-10 - [...] OTC and prescription treatments. Unspecified atherosclerosis of [place] arteries of extremities, bilateral legs Patient educated [...] Up: 3 Months, Reason: Provider Name:ROHINI CARDOSO, 06/28/2024 09:10:00 AM, [address] [place] [address], [id number], Progress Notes * Jayesh DINHDOB: 3 (68 yo M)Acc No.[id number]:01/19/2024 Patient: Jayesh CRUZ Provider: Eleonora CHUN :1955 A ge:68 Y S ex:Male Date:01/19/2024 Address:[address] [place] [address] [id number] Subjective: * Chief Complaints: * 1 [...] Patient denies c hest pain, history of AK, irregular heartbeat. M usculoskeletal: Patient complains of [...] (Primary) 2 . U nspecified atherosclerosis of [place] arteries of extremities, bilateral legs - I70.203 [...] * Treatment: 2. U nspecified atherosclerosis of [place] arteries of extremities, bilateral legs Notes: Patient [...] Months * Billing Information: * Visit Code: 12440 Office Visit, Est Pt., Level 3. * Procedure Codes: * CTOR OF CULTURE Sign off status: Completed true * Provider: Eleonora CHUN Date: 03/21/2023 Generated for Leigh quiles/Abram/Kenia on: 0 06/13/2024 01:48 PM CDT History and Physical Notes * [...]
== END 2024-06-13 12:55 | disposition home or self-care (01) ==
PROVIDERS: PCP Internal Medicine; Visit Provider Internal Medicine Cardiovascular Disease
DX: R93.1 Abnormal findings on diagnostic imaging of heart and coronary circulation (principal); I35.0 Nonrheumatic aortic (valve) stenosis
CPT/HCPCS: 93306

== ENCOUNTER 2024-07-11 12:44 | Outpatient (CLI) | payer MEDICARE, SELFPAY ==
--- OUTSIDE RECORDS SUMMARY | 2024-07-11 12:48 | XMS_ITS | Clinical Summary ---
Author Organization [facility] Address [address] [place] [address] Care Team Providers Care Hadoop Software Engineer Name Role Phone Betty Rodriguez MD Primary Care Provider [phone] Source Comments [facility],non-owned Affiliates and Associated Physician Practices is amultiple site organization consisting of ambulatory clinics and hospital sitesin [place], [place], [place] and [place]. This disclosure is being madepursuant to the Care Everywhere program and may not contain all information available regarding this patient. Last updated 17.[facility] Allergies No known active allergies Medications [...] Description 05/03/2024 9:30 AM CDT Office Visit [facility] Services [address] [place] [address] Eliana Enriquez MD Status post laparoscopic sleeve gastrectomy (Primary Dx) 05/03/2024 Telephone [facility] [address] [place] [address] Eliana Enriquez MD Record Request 04/25/2024 11:52 AM CDT Anesthesia Event Formerly named [facility] [address] [place] [address] Halina Lindsay MD 04/25/2024 11:45 AM CDT - 04/25/2024 12:11 PM CDT Surgery Formerly named [facility] [address] [place] [address] Eliana Enriquez MD ESOPHAGOGASTRODUODENOSCOPY WITH BIOPSY 04/25/2024 8:17 AM CDT - 04/25/2024 12:46 PM CDT Hospital Encounter Formerly named [facility] [address] [place] [address] Eliana Enriquez MD Surgery General Discharge Disposition: Home or Self Care 04/25/2024 Travel 04/20/2024 Travel from Last 3 Months Family History Medical [...] Oxygen Concentration 21% 01/17/2023 1 1:15 PM TRADITIONAL CHINESE HERBALIST Weight 93.5 kg (206 lb 1.6 oz) 05/03/2024 8:00 A M CDT Height 182.9 cm (6') 05/03/2024 8:00 AM CDT Body Mass Index 27.95 05/03/2024 8:00 AM CDT Plan of Treatment Upcoming Encounters Date Type Department Care Team (Late st Contact Info) Description 07/19/2024 9:00 AM CDT Office Visit [facility] Health Weight Management Services [address] [place] [address] Anusha Campa, TIRE VULCANIZER-PHARMACEUTICAL ENGINEER [address] [place] [address] 01/17/2025 9:30 AM TRADITIONAL CHINESE HERBALIST Office Visit [facility] Health Weight Management Services [address] [place] [address] Eliana Enriquez MD [address] [place] [address] 01/18/2025 9:00 AM TRADITIONAL CHINESE HERBALIST Clinical Support [facility] Health Weight Management [facility] [address] [place] [address] 01/18/2025 9:30 AM TRADITIONAL CHINESE HERBALIST Office Visit [facility] Health Weight Management Services [address] [place] [address] Anusha Campa, TIRE VULCANIZER-PHARMACEUTICAL ENGINEER [address] [place] [address] Health Maintenance Due Date Last Done Comments [...] this topic Medical Devices Implanted Type Area Human Factors Specialist Device Identifier Shelf Expiration Date Model / Serial / Lot Kit Tissue Clsr Duo Tssl 1 Prefl Syr - [id number] Implanted:Qty: 1 on 01/17/2023 by Eliana Enriquez MD at [facility] 09/13/2024 [id number] / [id number] / [id number] Procedures Procedure Name Priority Date/Time Associated Diagnosis Comments CARDIAC RHYTHM STRIP ORDER 04/26/2024 2:03 PM CDT GROSS + MICRO EXAM (ILL) Routine 04/25/2024 12:02 PM CDT Status post bariatric surgery LA EGD FLEX TRANSORAL W BX SNGL OR [...] CDT) Case Report Surgical Pathology Report Case: [id number] Authorizing Provider: Eliana Enriquez MD Collected: 04/25/2024 12:02 PM Ordering Location: [facility] Received: 04/26/2024 09:28 AM [facility] Pathologist: Yury Castellon MD Specimen: Gastric Biopsy, Antrum Biopsy to rule out h-Pylori 04/30/2024 1:45 PM CDT [facility] Final Diagnosis A. Stomach, antrum, biopsy: - Mild chronic inactive gastritis - Focal intestinal metaplasia - Negative for dysplasia - Immunostain for H.pylori is negative 04/30/2024 1:45 PM CDT [facility] at 1345 CDT Microscopic Description and Comment Microscopic examination is performed and substantiates the above diagnosis. 04/30/2024 1:45 PM CDT [facility] Clinical History Status post bariatric surgery. Biopsy of normal appearing antrum to rule out H.pylori 04/30/2024 1:45 PM CDT [facility] Gross Description A. The requisition and specimen(s) are identified with the patient's name (Stanley Dinh), MRN, and . Received in formalin labeled antrum biopsy to rule out H-pylori, are 2 cordero-pink soft tissue fragments, 0.2 and 0.3 cm in greatest dimension. The specimen is submitted in toto in cassette A1. AW 04/30/2024 1:45 PM CDT [facility] Pathologist Location at [facility] 04/30/2024 1:45 PM CDT [facility] Disclaimer The performance characteristics of all immunohistochemical and indirect immunofluorescence stains (if any) cited in this report were determined by the Histopathology Laboratory of [facility]. Some of these tests were developed by [...] slides and special stains prepared at [facility], [place]. [address] (CLIA# [id number]) unless otherwise specified. This case was interpreted by the [facility] Department of Pathology. When applicable, select reference laboratory testing is performed at the [facility], [address] [place] [address]. 04/30/2024 1:45 PM CDT [facility] Embedded Images 04/30/2024 1:45 PM CDT [facility] Pathology/Cytolog y GASTRIC BIOPSY SPECIMEN / Unknown 04/25/2024 12:02 PM CDT 04/26/2024 9:28 AM CDT Comment:Pre-op diagnosis: Status post bariatric surgery [Z98.84] us Eliana Enriquez MD LAB - PATHOLOGY/CYTOLOGY ORDERABLES Final Result [facility] [address] [place], [place] [address] [place] [address] * COMPREHENSIVE METABOLIC PANEL (07/21/2023) Blood BLOOD SPECIMEN / Unknown 07/21/2023 Shanel Ware APRN-PHARMACEUTICAL ENGINEER LAB - CHEMISTRY O RDERABLES Final Result OTHER LAB * LIPID PROFILE (07/21/2023) Blood BLOOD SPECIMEN / Unknown 07/21/2023 Shanel Ware APRN-PHARMACEUTICAL ENGINEER LAB - CHEMISTRY O RDERABLES Edited Result - Final OTHER LAB from Last 3 Months or Most Recently Relevant to Health Maintenance Insurance [employer] [facility] [place] [address] [facility] MEDICARE ADV SELF PAY NO INSURANCE Member Subscriber Plan / Payer (Ef fective for All Dates) Name:ShlomoStanley andino Member ID:Not on file Relation to Subscriber:Not on file Name:STANLEY DINH Subscriber ID:Not on file (Home) Address: [address] [place] [address] [place] [address] Payer ID:Not on file Group ID:Not on file Type:Self Pay Address: [place], [place] [address] Advance Directives Documents on File Type Date Recorded Patient Seal Mixer Expl 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 Power of Attorne y for Healthcare * Full Code (Latest Code Status on File) Date Activated Date Inactivated Comments 01/17/2023 12:21 PM 01/18/2023 3:25 PM Care Teams Hadoop Software Engineer Relationship Specialty Start Date End Date Betty Rodriguez MD [address] [place] [address] PCP - General Internal Medicine 09/02/22
--- OUTSIDE RECORDS SUMMARY | 2024-07-11 12:48 | XMS_ITS ---
Author Organization [facility] Address [address] [facility] [address] [place], [place] [id number] Care Team Providers Care Community Service Worker Name Role Phone NAVID STROUD Unavailable [phone] Betty Rodriguez Unavailable Unavailable ROHINI ROMAN Unavailable [phone] REASON FOR VISIT *General care Medications Medication SIG (Take, Route, Frequency, Duration) Notes Start Date End Date Status Lisinopril-hydroCHLOROthiaz teresita 10-12.5 MG Oral for 90 Days Active Amoxicillin-Pot Clavulanate 875-125 MG Oral for 5 Days Active Atorvastatin Calcium 40 MG Oral for 90 Days Active Vital Signs Height 72 in 06/27/2024 Weight 270 lbs 06/27/2024 BMI 36.61 kg/m2 06/27/2024 Height-cm 182.88 cm 06/27/2024 Weight-kg 122.47 kg 06/27/2024 Encounters Encounter Location Date Provider Diagnosis [facility] [place] [address] [place], [place] [id number] 06/27/2024 ROHINI ROMAN Tinea unguium B35.1 ; Pain in right toe(s) M79.674 ; Pain in left toe(s) M79.675 ; Atherosclerosis of [place] arteries of extremities with intermittent claudication, bilateral [...] toe(s) (ICD-10 - M79.675) 06/27/2024 Atherosclerosis of [place] arteries of extremities with intermittent claudication, bilateral [...] sooner if problems arise Provider Name:ROHINI CARDOSO, 08/30/2024 08:10:00 AM, [address] [place] [address], [id number], Progress Notes * Jayesh DINHDOB: 3 (69 yo M)Acc No.[id number]:06/27/2024 Patient: Jayesh CRUZ Provider: Poncho ROMAN :1955 A ge:69 Y S ex:Male Date:06/27/2024 Address:[address] [address], [facility] Subjective: * Chief Complaints: * 1 . [...] - M79.675 4 . A therosclerosis of [place] arteries of extremities with intermittent claudication, bilateral [...] arise) * Billing Information: * Visit Code: 41043 Office Visit, Est Pt., Level 3. * Procedure Codes: * Electronic signature of KOTA ROMAN DPM on 07/11/2024 at 12:48 PM CDT Sign off status: Pending * Provider: Poncho ROMAN Date: 0 06/27/2024 Generated for Leigh quiles/Abram/Kenia on: 0 07/11/2024 12:48 PM CDT History and Physical Notes * [...] seen by Dr. Rodriguez was 06/2024., Initials mca New Complaint Established patient presents with a [...]
--- OUTSIDE RECORDS SUMMARY | 2024-07-11 12:48 | XMS_ITS | Patient Health Record ---
Author Organization [facility] Address [address] [place], [place] [address] Care Team Providers Care Prorate Clerk Name Role Phone NAVID ANGLIN Unavailable [phone] Betty Rodriguez Unavailable Unavailable MISSAEL CHUN Unavailable [phone] ROHINI ROMAN Unavailable [phone] Allergies No Known Allergies Reason For Referral [...] Admini stered Vital Signs Height-cm 182.88 cm 06/27/2024 Weight-kg 122.47 kg 06/27/2024 Height 72 in 06/27/2024 Weight 270 lbs 06/27/2024 BMI 36.61 kg/m2 06/27/2024 Encounters Encounter Location Date Provider Diagnosis [facility] [place] [address] [place], [place] [id number] 06/27/2024 ROHINI ROMAN Tinea unguium B35.1 ; Pain in right toe(s) M79.674 ; Pain in left toe(s) M79.675 ; Atherosclerosis of [place] arteries of extremities with intermittent claudication, bilateral legs I70.213 and Foot drop, left foot M21.[address] [id number] 09/08/2023 MISSAEL CHUN Tinea unguium B35.1 ; Unspecified atherosclerosis of [place] arteries of extremities, bilateral legs I70.203 ; Type 2 diabetes mellitus with diabetic peripheral angiopathy without gangrene E11.51 ; Other hammer toe(s) (acquired), right foot M20.41 ; Other hammer toe(s) (acquired), left foot M20.42 ; Pain in right toe(s) M79.674 and Pain in left toe(s) M79.[address] [id number] 11/10/2023 MISSAEL CHUN Tinea unguium B35.1 ; Unspecified atherosclerosis of [place] arteries of extremities, bilateral legs I70.203 ; Type 2 diabetes mellitus with diabetic peripheral angiopathy without gangrene E11.51 ; Other hammer toe(s) (acquired), right foot M20.41 ; Other hammer toe(s) (acquired), left foot M20.42 ; Pain in right toe(s) M79.674 and Pain in left toe(s) M79.[address] [id number] 01/19/2024 MISSAEL CHUN Tinea unguium B35.1 ; Unspecified atherosclerosis of [place] arteries of extremities, bilateral legs I70.203 ; Type 2 diabetes mellitus with diabetic peripheral angiopathy without gangrene E11.51 ; Other hammer toe(s) (acquired), right foot M20.41 ; Other hammer toe(s) (acquired), left foot M20.42 ; Pain in right toe(s) M79.674 and Pain in left toe(s) M79.[address] [id number] 04/05/2024 NAVID STROUD Tinea unguium B35.1 ; Pain in right toe(s) M79.674 ; Pain in left toe(s) M79.675 and Atherosclerosis of [place] arteries of extremities with intermittent claudication, bilateral legs I70.213 Assessments Encounter Date Diagnosis (ICD Code) Assessment Notes Treatment Notes Treatment Clinical Notes Section Notes 09/08/2023 Unspecified atherosclerosis of [place] arteries of extremities, bilateral legs (ICD-10 - [...] and prescription treatments. 11/10/2023 Unspecified atherosclerosis of [place] arteries of extremities, bilateral legs (ICD-10 - I70.203) Patient educated on risks and aggravating factors of PVD, including conservative treatment options such as a diet and exercise regimen to aid in slowing progression of vascular disease 01/19/2024 Unspecified atherosclerosis of [place] arteries of extremities, bilateral legs (ICD-10 - [...] in right toe(s) (ICD-10 - M79.674) 06/27/2024 Tinea unguium (ICD-10 - B35.1) FUNGAL [...] in left toe(s) (ICD-10 - M79.675) 04/05/2024 Pain in left toe(s) (ICD-10 - [...] foot (ICD-10 - M20.41) 04/05/2024 Atherosclerosis of [place] arteries of extremities with intermittent claudication, bilateral legs (ICD-10 - I70.213) 01/19/2024 Other hammer toe(s) (acquired), right foot (ICD-10 - M20.41) 06/27/2024 Atherosclerosis of [place] arteries of extremities with intermittent claudication, bilateral legs (ICD-10 - I70.213) 06/27/2024 Foot drop, left foot (ICD-10 - M21.372) left LE foot drop. Patient will get MRI and neurology consult. He will continue ROM exercises and consider PT and bracing. 01/19/2024 Other hammer toe(s) (acquired), left foot [...] Treatment Next Appt Details Provider Name:ROHINI CARDOSO, 08/30/2024 08:10:00 AM, [address] [place] [address], [id number], Insurance Providers Payer Name Payer Address Payer Phone Subscriber Number Group Number Insured Name Patient Relationship to Insured Coverage Start Date Coverage End Date [employer] [address] [place] [phone] [id number] Jayesh DINH Self - patient is the insured
--- OUTSIDE RECORDS SUMMARY | 2024-07-11 12:49 | XMS_ITS ---
Author Organization [facility] Address [address] [place], [place] [id number] Care Team Providers Care Sales Operations Consultant Name Role Phone NAVID STROUD Unavailable [phone] Betty Rodriguez Unavailable Unavailable ROHINI ROMAN Unavailable [phone] REASON FOR VISIT *General care Encounters Encounter Location Date Provider Diagnosis [address] [id number] 06/07/2024 ROHINI ROMAN Plan Of Treatment Next Appt Details Provider Name:ROHINI CARDOSO, 08/30/2024 08:10:00 AM, [address] [place] [address], [id number], Progress Notes * Jayesh DINHDOB: 3 (69 yo M)Acc No.[id number]:06/07/2024 Patient: Poncho NELSON Jayesh Provider: Poncho ROMAN :1955 A ge:69 Y S ex:Male Date:06/07/2024 Address:[facility] [address] [place] Subjective: * Chief Complaints: * 1 . *General care. * Medical History: Objective: * Vitals: Assessment: Plan: * Treatment: * Billing Information: * Visit Code: * Procedure Codes: * Electronic signature of KOTA ROMAN DPM on 07/11/2024 at 12:48 PM CDT Sign off status: Pending * Provider: Poncho ROMAN Date: 0 06/07/2024 Generated for Adami ng/Fajanene/eTransmitting on: 0 07/11/2024 12:48 PM CDT
--- OUTSIDE RECORDS SUMMARY | 2024-07-11 12:49 | XMS_ITS | CONTINUITY OF CARE DOCUMENT ---
Author Name maris pollock Address Unknown Organization [facility] Address [address] [place] [address] Phone [phone] Care Team Providers Care Test Director Name Role Phone Fuentes PARRISH, Breann Unavailable TRINIDAD PARRISH, SAVI Encinas Unavailable FRANCES PARRISH, WESTON Unavailable INSURANCE PROVIDERS Payer name Policy type / Coverage type [place] red libertarian [employer] OPEN ACCESS Other [id number]
--- NOTE | 2024-07-11 14:00 | NEURO_ITS ---
Impression: # Complains of pain in lower extremities, left more than right. History of lower back surgery about 15 years ago. ? 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 ? # Abnormal Needle/EMG exam more so on the left. Nerve Conduction Studies Anti Sensory Summary Table ?Stim Site NR Peak (ms) P-T Amp (?V) Site1 Site2 Delta-P (ms) Dist (cm) Samy (m/s) Left Sup Fibular Anti Sensory (Ant Lat Mall)??? NO RESPONSE 14 cm NR 14 cm Ant Lat Mall 16.0 Right Sup Fibular Anti Sensory (Ant Lat Mall)??? NO RESPONSE 14 cm NR 14 cm Ant Lat Mall 16.0 Left Sural Anti Sensory (Lat Mall)??? NO RESPONSE Calf NR Calf Lat Mall 16.0 Right Sural Anti Sensory (Lat Mall)??? NO RESPONSE Calf NR Calf Lat Mall 16.0 Motor Summary Table ?Stim Site NR Onset (ms) O-P Amp (mV) Site1 Site2 Delta-0 (ms) Dist (cm) Samy (m/s) Left Peroneal Motor (Vastus Med) Ankle ? 5.5 0.4 Popit Ankle 11.6 43.0 37 Popit ? 17.1 0.3 Right Peroneal Motor (Vastus Med) Ankle ? 3.8 0.4 Popit Ankle 11.2 43.0 38 Popit ? 15.0 0.4 Left Tibial Motor (Abd Samaniego Brev)??? NO RESPONSE Ankle NR Knee Ankle 0.0 Knee NR Right Tibial Motor (Abd Samaniego Brev) Ankle ? 6.7 0.3 Knee Ankle 11.7 45.0 38 Knee ? 18.4 0.2 F Wave Studies ?NR F-Lat (ms) L-R F-Lat (ms) Left Peroneal (Mrkrs) (EDB)??? NO RESPONSE NR Right Peroneal (Mrkrs) (EDB) ? 65.85 Left Tibial (Mrkrs) (Abd Hallucis)??? NO RESPONSE NR Right Tibial (Mrkrs) (Abd Hallucis)??? DISPERSED RESPONSE NR EMG ?Side Muscle Nerve Root Ins Act Fibs Amp Dur Recrt Comment Right AntTibialis Dp Br Fibular L4-5 Nml Nml Decr >12ms +1 Right Gastroc Tibial S1-2 Nml Nml Decr >12ms +1 Right Fibularis Long Sup Br Fibular L5-S1 Nml Nml Decr >12ms +1 Right Flex Dig Long Tibial L5-S2 Nml Nml Decr >12ms +1 Right Ext Dig Brev Dp Br Fibular L5, S1 Nml Nml Decr >12ms +1 Right QuadratusFem QuadFemoris L4-5, S1 Nml Nml Decr >12ms +1 Left AntTibialis Dp Br Fibular L4-5 Nml Nml Decr >12ms +1 Left Gastroc Tibial S1-2 Nml Nml Decr >12ms +1 Left Fibularis Long Sup Br Fibular L5-S1 Nml Nml Decr >12ms +1 Left Flex Dig Long Tibial L5-S2 Nml Nml Decr >12ms +1 Left Ext Dig Brev Dp Br Fibular L5, S1 Nml Nml Decr >12ms +1 Left QuadratusFem QuadFemoris L4-5, S1 Nml Nml Decr >12ms +1
== END 2024-07-11 12:45 | disposition home or self-care (01) ==
PROVIDERS: PCP Internal Medicine; Visit Provider Internal Medicine
DX: G57.93 Unspecified mononeuropathy of bilateral lower limbs (principal); Z98.890 Other specified postprocedural states
CPT/HCPCS: 95886; 95910

== ENCOUNTER 2024-07-20 07:34 | Outpatient (CLI) | payer MEDICARE, SELFPAY ==
--- OUTSIDE RECORDS SUMMARY | 2024-07-20 07:42 | XMS_ITS ---
Author Organization [facility] Address [address] [facility] [address] [place], [place] [id number] Care Team Providers Care Supervisor Logging Name Role Phone NAVID STROUD Unavailable [phone] Betty Rodriguez Unavailable Unavailable ROHINI ROMAN Unavailable [phone] REASON FOR VISIT *General care Medications Medication [...] Location Date Provider Diagnosis [facility] [place] [address] [address] [place], [place] [id number] 06/27/2024 ROHINI ROMAN Tinea unguium B35.1 ; Pain in right toe(s) M79.674 ; Pain in left toe(s) M79.675 ; Atherosclerosis of [place] arteries of extremities with intermittent claudication, bilateral [...] toe(s) (ICD-10 - M79.675) 06/27/2024 Atherosclerosis of [place] arteries of extremities with intermittent claudication, bilateral [...] arise Provider Name:ROHINI CARDOSO, 08/30/2024 08:10:00 AM, [address] [place] [address], [id number], Progress Notes * Jayesh DINHDOB: [birth year] (69 yo M)Acc No.[id number]:06/27/2024 Patient: Jayesh CRUZ Provider: Poncho ROMAN :1955 A ge:69 Y S ex:Male Date:06/27/2024 Address:[address] [address] [id number] Subjective: * Chief Complaints: * 1 . [...] - M79.675 4 . A therosclerosis of [place] arteries of extremities with intermittent claudication, bilateral [...] arise) * Billing Information: * Visit Code: 34075 Office Visit, Est Pt., Level 3. * Procedure Codes: * Electronic signature of KOTA ROMAN DPM on 07/20/2024 at 07:42 AM CDT Sign off status: Pending * Provider: Poncho ROMAN Date: 0 06/27/2024 Generated for Leigh quiles/Abram/Kenia on: 0 07/20/2024 07:42 AM CDT History and Physical Notes * [...]
--- OUTSIDE RECORDS SUMMARY | 2024-07-20 07:42 | XMS_ITS | Clinical Summary ---
Author Organization [facility] Address [address] [place] [address] Care Team Providers Care Erisa Attorney Name Role Phone Betty Rodriguez MD Primary Care Provider [phone] Source Comments [facility],non-owned Affiliates and Associated Physician Practices is amultiple site organization consisting of ambulatory clinics and hospital sitesin [place], [place], [place]. This disclosure is being madepursuant to the Care Everywhere program and may not contain all information available regarding this patient. Last updated 17.[facility] Allergies No known active allergies Medications * Be aware that medications may not be up to date on this document. Alwaysverify current medications with the patient. multivitamin daily tablet Take 1 (one) tablet by mouth 2 times daily Active Guselkumab (TREMFYA IV) Iv q 6 weeks for three doses Active budesonide (Entocort EC) [address] capsule Take 1 (one) capsule by mouth once daily Patient on decreasing dose, currently 2 capsules daily Active Calcium Citrate-Vitami n D (CALCIUM CITRATE + PO) Take 500 mg by mouth 3 times daily Active Calcium Carbonate (CALCIUM 600 PO) Take 600 mg by mouth 3 times daily 1 tab by mouth twice a day 07/20/19 25 Discontinu ed(List Clean-Up) Active Problems Problem Noted Date Diagnosed Date Morbid obesity 01/17/2023 Encounters Date Type Department Care Team Description 07/19/2024 9:00 AM CDT Office Visit [facility] [address] [place] [address] Anusha Campa, [employer]-DEPARTMENT STORE SALESPERSON S/P laparoscopic sleeve gastrectomy (Primary Dx); Elevated hemoglobin; Hypercholesteremia; Vitamin D deficiency; Thyroid 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 abnormal; Bariatric surgery status; Overweight with body mass index (BMI) of 29 to 29.9 in adult; Neuropathy 05/03/2024 9:30 AM CDT Office Visit [facility] [address] [place] [address] Eliana Enriquez MD Status post laparoscopic sleeve gastrectomy (Primary Dx) 05/03/2024 Telephone [facility] [address] [place] [address] Eliana Enriquez MD Record Request 04/25/2024 11:52 AM CDT Anesthesia Event [facility] [address] [place] [address] Halina Lindsay MD 04/25/2024 11:45 AM CDT - 04/25/2024 12:11 PM CDT Surgery [facility] [address] [place] [address] Eliana Enriquez MD ESOPHAGOGASTRODUODENOSCOPY WITH BIOPSY 04/25/2024 8:17 AM CDT - 04/25/2024 12:46 PM CDT Hospital Encounter [facility] [address] [place] [address] Eliana Enriquez MD Surgery General Discharge Disposition: [...] Date Recorded Patient Health Questionnaire-2 Score 0 07/19/2024 Sex and Gender Information Value Date Recorded Sex Assigned at Not on file Legal Sex Male 11:12 AM CDT Gender Identity Not on file Sexual Orientation Not on file Last Filed Vital Signs Vital Sign Reading Time Taken Comments Blood Pressure 112/70 07/19/2024 8:00 AM CDT Pulse 64 07/19/2024 8:00 AM CDT Temperature 37 C (98.6 F) 07/19/2024 8:00 AM CDT Respiratory Rate 16 07/19/2024 8:00 AM CDT Oxygen Saturation 97% 07/19/2024 8:00 AM CDT Inhaled Oxygen Concentration 21% 01/17/2023 1 1:15 PM PROPERTY AND EQUIPMENT CLERK Weight 97.3 kg (214 lb 9.6 oz) 07/19/2024 8:00 A M CDT Height 182.9 cm (6') 07/19/2024 8:00 AM CDT Body Mass Index 29.1 07/19/2024 8:00 AM CDT Plan of Treatment Upcoming Encounters Date Type Department Care Team (Late st Contact Info) Description 01/18/2025 9:00 AM PROPERTY AND EQUIPMENT CLERK Clinical Support [facility] [address] [place] [address] 01/18/2025 9:30 AM PROPERTY AND EQUIPMENT CLERK Office Visit [facility] [address] [place] [address] Anusha Campa, [employer]ORE SALESPERSON [address] [place] [address] Health Maintenance Due Date Last Done Comments [...] this topic Medical Devices Implanted Type Area Rn Transplant Device Identifier Shelf Expiration Date Model / Serial / Lot Kit Tissue Clsr Duo Tssl 1 Prefl Syr - [id number] Implanted:Qty: 1 on 01/17/2023 by Eliana Enriquez MD at [facility] Acharya weartolook 09/13/2024 [id number] / [id number] / [id number] Procedures Procedure Name Priority Date/Time Associated Diagnosis Comments CARDIAC RHYTHM STRIP ORDER 04/26/2024 2:03 PM CDT GROSS + MICRO EXAM (ILL) Routine 04/25/2024 12:02 PM CDT Status post bariatric surgery OH EGD FLEX TRANSORAL W BX SNGL OR [...] CDT) Case Report Surgical Pathology Report Case: [id number] Authorizing Provider: Eliana Enriquez MD Collected: 04/25/2024 12:02 PM Ordering Location: [facility] Received: 04/26/2024 09:28 AM [facility] Pathologist: Yury Castellon MD Specimen: Gastric Biopsy, Antrum Biopsy to rule out h-Pylori 04/30/2024 1:45 PM CDT [facility] Final Diagnosis A. Stomach, antrum, biopsy: - Mild chronic inactive gastritis - Focal intestinal metaplasia - Negative for dysplasia - Immunostain for H.pylori is negative 04/30/2024 1:45 PM CDT [facility] at 1345 CDT Microscopic Description and Comment Microscopic examination is performed and substantiates the above diagnosis. 04/30/2024 1:45 PM CDT [facility] Clinical History Status post bariatric surgery. Biopsy of normal appearing antrum to rule out H.pylori 04/30/2024 1:45 PM CDT [facility] Gross Description A. The requisition and specimen(s) are identified with the patient's name (Stanley Dinh), MRN, and . Received in formalin labeled antrum biopsy to rule out H-pylori, are 2 cordero-pink soft tissue fragments, 0.2 and 0.3 cm in greatest dimension. The specimen is submitted in toto in cassette A1. AW 04/30/2024 1:45 PM CDT [facility] Pathologist Location at [facility] 04/30/2024 1:45 PM CDT [facility] Disclaimer The performance characteristics of all immunohistochemical and indirect immunofluorescence stains (if any) cited in this report were determined by the [facility] of [facility]. Some of these tests were developed [...] slides and special stains prepared at [facility], [place]. [address] (CLIA# [id number]) unless otherwise specified. This case was interpreted by the [facility] Department of Pathology. When applicable, select reference laboratory testing is performed at the [facility], [address] [place] [address]. 04/30/2024 1:45 PM CDT [facility] Embedded Images 04/30/2024 1:45 PM CDT [facility] Pathology/Cytolog y GASTRIC BIOPSY SPECIMEN / Unknown 04/25/2024 12:02 PM CDT 04/26/2024 9:28 AM CDT Comment:Pre-op diagnosis: Status post bariatric surgery [Z98.84] us Eliana Enriquez MD LAB - PATHOLOGY/CYTOLOGY ORDERABLES Final Result [facility] [address] * COMPREHENSIVE METABOLIC PANEL (07/21/2023) Blood BLOOD SPECIMEN / Unknown 07/21/2023 Shanel Ware APRN-DEPARTMENT STORE SALESPERSON LAB - CHEMISTRY O RDERABLES Final Result OTHER LAB * LIPID PROFILE (07/21/2023) Blood BLOOD SPECIMEN / Unknown 07/21/2023 Shanel Ware APRN-DEPARTMENT STORE SALESPERSON LAB - CHEMISTRY O RDERABLES Edited Result - Final OTHER LAB from Last 3 Months or Most Recently Relevant to Health Maintenance Insurance [facility] [employer]NA MEDICARE ADV A[employer] MEDICARE ADV SELF PAY NO INSURANCE Member Subscriber Plan / Payer (Ef fective for All Dates) Name:Stanley Dinh Member ID:Not on file Relation to Subscriber:Not on file Name:STANLEY DINH Subscriber ID:Not on file (Home) Address: [place] [address] Payer ID:Not on file Group ID:Not on file Type:Self Pay Address: [place], [place] Advance Directives Documents on File Type Date Recorded Patient Review Nurse Expl 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 Power of Attorne y for Healthcare * Full Code (Latest Code Status on File) Date Activated Date Inactivated Comments 01/17/2023 12:21 PM 01/18/2023 3:25 PM Care Teams Erisa Attorney Relationship Specialty Start Date End Date Betty Rodriguez MD [address] [place] [address] PCP - General Internal Medicine 09/02/22
--- OUTSIDE RECORDS SUMMARY | 2024-07-20 07:43 | XMS_ITS | Encounter Summary ---
Author Organization [facility] Address [address] [place] [address] Care Team Providers Care Hris Manager Name Role Phone Betty Rodriguez MD Primary Care Provider [phone] Reason for Visit * Reason Comments Bariatric Surgery Follow-up Encounter Details Date Type Department Care Team (Late st Contact Info) Description 07/19/2024 9:00 AM CDT Office Visit [facility] [address] [place] [phone] Anusha Campa, RESEARCH QUALITY ASSURANCE ANALYST-INSURANCE SALES AGENT [address], [place] [address] S/P laparoscopic sleeve gastrectomy (Primary Dx); Elevated hemoglobin; Hypercholesteremia; Vitamin D deficiency; Thyroid 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 abnormal; Bariatric surgery status; Overweight with body mass index (BMI) of 29 to 29.9 in adult; Neuropathy Social History Tobacco Use Types Packs/Day Years [...] 07/19/2024 8:00 AM CDT Inhaled Oxygen Concentration - - Weight 97.3 kg (214 lb 9.6 oz) 07/19/2024 8:00 A M CDT Height 182.9 cm (6') 07/19/2024 8:00 AM CDT Body Mass Index 29.1 07/19/2024 8:00 AM CDT documented in this encounter Functional Status * Is person deaf or have serious hearing difficulty? Answer Date of Assessment Author No 04/25/2024 12:28 PM CDT Rosa Smyth, LUZ * Is person blind or have serious difficulty seeing? Answer Date of Assessment Author No 04/25/2024 12:28 PM CDT Rosa Smyth, RN * Does person have serious difficulty walking/climbing stairs? Answer Date of Assessment Author No 04/25/2024 12:28 PM CDT Rosa Smyth, RN * Does person have difficulty dressing/bathing? Answer Date of Assessment Author No 04/25/2024 12:28 PM CDT Rosa Smyth, RN * Does person have difficulty doing errands alone? Answer Date of Assessment Author No 04/25/2024 12:28 PM CDT Rosa Smyth, RN * Over the past 2 weeks, how often have you been bothered by any of the following problems? Question Answer Date of Assessment Author Little interest or pleasure in doing things Not at all 07/19/2024 8:54 AM HARPERT Angela Luqeu LPN Feeling down, depressed, or hopeless Not at all 07/19/2024 8:54 AM CDT Angela Luque LPN Patient Health Questionnaire-2 Score 0 07/19/2024 8:54 AM CDT Phil Luque LPN documented as of this encounter Mental Status * Does person have difficulty concentrating/remembering/making decisions? Answer Entry Date Author No 04/25/2024 12:28 PM CDT Rosa Smyth RN documented in this encounter Progress Notes * Anusha Campa APRN-INSURANCE SALES AGENT - 07/19/2024 8:[address] [facility] at [address] [address] . . Date of encounter: 07/19/2024 Pt Name: Jayesh Anderson : 1955 AGE: [age] year old SEX: male CSN: [id number] Visit type: Bariatric Post Operative visit Patients Primary care provider is : Betty Rodriguez MD Subjective: Jayesh Anderson presents to the clinic 18 months following sleeve gastrectomy. he was seen in cliniclast on 05/03/2024. Patient is taking 60 grams of proteins supplements daily. Patient is encouraged to attend support group meeting. Patient is taking 64+ oz of fluid per day. Doing 0 minutes of exercise daily. Patient is taking Bariatric multivitamins. Patient is not having Reflux, Vomiting, Dysphagia, and Abdominal Pain, The patient is not having any pain.. Bowel movement are loose not liquid, at baseline. Has the patient been readmitted to the [...] Total Wt Loss in lb: 173.3 lb 05/03/2024 Weight: 93.5 kg (206 lb 1.6 oz) BMI (Calculated): 27.95 Weight Loss since last visit in lbs : +10.6 lb Total Wt Loss in lb: 162.7 lb 07/19/2024 Weight: 97.3 kg (214 lb 9.6 oz) BMI (Calculated): 29.1 Weight Loss since last visit in lbs: +8.5 lb Total Wt Loss in lb: 154.2 lb Obesity History Years of being overweight? 40yrs Age of first weight loss attempt? 18 Highest weight as an adult? 320 Goal Weight? 200 BMI: Body mass index is 29.1 kg/m??. Past Medical History[1] Past Surgical History[2] Social history: Social History Socioeconomic History Marital [...] Social History Narrative Not on file Social Drivers of Health Financial Resource Strain: Not on file Food Insecurity: Not on file Transportation Needs: Not on file Stress: Not on file Housing Stability: Not on file Family History: Family History[3] Medications: Medications[4] Medications[5] Allergy: Allergies[6] ROS: A comprehensive review of systems was negative except as described in HPI. Objective: BP 112/70 Pulse 64 Temp 98.6 ??F (37 ??C) (Temporal) Resp 16 Ht 1.829 m (6') Wt 97.3 kg (214 lb 9.6 oz) SpO2 97% Weight: 97.3 kg (214 lb 9.6 oz) Height: 182.9 cm (6') Body mass index is 29.1 kg/m??. Constitutional: Alert, awake and oriented without any apparent discomfort. Eyes: Anicteric. No subconjunctival hemorrhage. Neck Exam: Supple. Trachea midline. No thyromegaly. No cervical or supraclavicular lymphadenopathy. Respiratory: Lungs were clear to auscultation bilaterally. No rales, rhonchi. Cardiovascular: Regular rate and rhythm. Abdomen: Abdomen was obese, soft, non tender, non distended. No palpable ventral hernias. Wound healing well. Skin: [place] and moist. No ulcers, rashes, or lesions. [...] results for input(s): IRON in the last 15397 hours. No results for input(s): BWSYXRHE21 in the last 10506 hours. No results for input(s): VITAMINA in the last 82364 hours. No results for input(s): IRON in the last 59675 hours. No results for input(s): VITK1 in the last 63914 hours. No results for input(s): [id number] in the last 81394 hours. No results for input(s): ALPHATOCOPH in the last 61855 hours. No results for input(s): GAMMATOCOPH in the last 04639 hours. No results for input(s): MAGMGDL in the last 12937 hours. Recent Labs Component Name 01/18/23 0548 [...] above. Total weight loss since starting the program:154.2 pounds Current BMI Body mass index is 29.1 kg/m??. with weight of Weight: 97.3 kg (214 lb 9.6oz) . S/P Bariatric Surgery : s/p: Sleeve Gastrectomy . Date of surgery 01/17/23. @ [facility], by Dr. Enriquez Patient was recommended to take about 60-80 g of protein per day, and get involved in an exercise plan. The patient is also recommended to attend support group meetings.I also explained to him that he should take 2 adult multivitamin tablets, and 1500 mg of calcium citrate, starting 2 weeks after surgery. Patient was made aware of the nutrition deficiency should he fail to take supplementation. History of Gastric Ulcer Preop EGD 11/12/22. Showed 2 antral ulcers. He underwent repeat EGD 12/13/22 which was normal. Intestinal metaplasia of the gastric antrum He underwent postoperative EGD on 04/25/2024. He was found to have evidence of sleeve gastrectomy initiated 6 cm proximal to the pylorus with no evidence of tight angulation at the incisura and no retained fundus. No hiatal hernia seen. He did have bile reflux. He otherwise had normal duodenal, normal gastric antrum, normal Z-line, normal esophagus. Antral biopsy showed foci of intestinal metaplasia. Dr. Enriquez recommended repeat EGD in 3 years (2027). Report faxed to his olive packer. He may complete EGD with his olive packer. History of Hypertension Prior to procedure patient was on lisinopril/ hydrochlorothiazide. Blood pressure in the office today 112/70. He no longer takes medication for HTN. History of Sleep apnea He is no longer using CPAP. History of Hypercholesterolemia Prior to surgery, patient was taking Lipitor 40 mg for this. He is no longer taking this medication. Continue follow-up with PCP. Ulcerative Colitis Patient reports 4 day hospitalization in December 2023 for ulcerative colitis. He was at [facility] in [facility]. He is following with Gastroenterology, Dr. Hendrix. Most recent colonoscopy completed 11/03/2023 at [facility] in [place]. Findings include normal terminal ileum with no ileitis. Moderate to severe colitis seen throughout the colon. The colitis had decreasedvascularity, edematous, erythematous, friable, and ulcerative changes. This is highly consistent with ulcerative colitis. Multiple biopsies were taken. He is currently taking Tremfya for this. Colon cancer screening He denies family history of colon cancer. Most recent colonoscopy completed 11/03/2023 at [facility] in [place]. Findings include normal terminal ileum with no ileitis. Moderate to severe colitis seen throughout the colon. The colitis had decreased vascularity, edematous, erythematous, friable, and ulcerative changes. This is highly consistent with ulcerative colitis. Multiple biopsies were taken. Patient was recommended 1 year follow-up (October 2024) by Gastroenterology. History of Abnormal Thyroid On initial lab testing TSH was abnormal 4.05. TSH normal 07/21/2023. Continue follow up with PCP. History of Vitamin D deficiency He had low vitamin D on initial testing. Repeat vit D 07/21/2023 was normal at 69. Umbilical hernia Patient has a reducible umbilical hernia. Patient reports some discomfort when lifting, pushing, orpulling items. I discussed with him options for umbilical hernia repair. I have recommended open umbilical hernia repair. Risks were discussed including bleeding, infection, damage to surrounding structures, need for subsequent procedure, hernia recurrence, DVT, PE, mi, stroke, . I also reviewed risks of not proceeding with hernia repair including bowel incarceration and strangulation. Currently, the patient is not interested in proceeding with hernia repair. He will continue to monitor for increasing pain, increasing size, evidence of bowel incarceration or strangulation. If he developsany of these symptoms, he will call the clinic for repeat evaluation. Neuropathy and foot drop Patient reports new or onset bilateral lower extremity neuropathy. He reports that after a fall he also developed footdrop. He has had MRI evaluation. Reviewed with patient the importance of vitamin assessment low out deficiency related neuropathy. Patient does report compliance with bariatric multivitamin. Lab orders given to patient today to complete at local hospital. I counseled the patient on continuing Behavior [...] day. Labs ordered: Routine Vitamin and Lab check; did to complete annual labs ordered March 2024 thathave not yet been done. Plan : as above recommendation. Follow up with: Surgeons / PA/ DRIVER HELPER : 6 months at annual follow up (01/2025).PRN Dietitian: as scheduled. He verbalized understanding and is agreeable to this plan after shared decision making with patient. PREET Montgomery CC: Betty Rodriguez MD [1] Past Medical History: Diagnosis Date GERD (gastroesophageal reflux disease) HTN (hypertension) Sleep apnea CPAP Ulcerative colitis (HCC) 10/2023 [2] Past Surgical History: Procedure Laterality Date COLONOSCOPY WITH POLYPECTOMY N/A 11/12/2022 N/A; COLONOSCOPY with polypectomy ENDOSCOPY, UPPER N/A 11/12/2022 N/A; ESOPHAGOGASTRODUODENOSCOPY with biopsy ENDOSCOPY, UPPER N/A 12/13/2022 N/A; ESOPHAGOGASTRODUODENOSCOPY WITH BIOPSY ENDOSCOPY, UPPER N/A 04/25/2024 N/A; ESOPHAGOGASTRODUODENOSCOPY WITH BIOPSY Gastrectomy N/A 01/17/2023 N/A; LAPAROSCOPIC SLEEVE GASTRECTOMY Lumbar Diskectomy Meniscectomy Bilateral [3] Family History Problem Relation Name Age of Onset Cancer Mother Diabetes; unknown type Mother [4] Outpatient Medications Marked as Taking for the 07/19/24 encounter (Office Visit) with Anusha Campa APRN-CNP Medication Sig Calcium Citrate-Vitamin D (CALCIUM CITRATE + PO) Take 500 mg by mouth 3 times daily Guselkumab (TREMFYA IV) Iv q 6 weeks for three doses multivitamin daily tablet Take 1 (one) tablet by mouth 2 times daily [5] (Not in a hospital admission) [6] No Known Allergies Cosigned by Eliana Enriquez MD at 07/19/2024 3:26 PM CDT documented in this encounter Plan of Treatment Upcoming Encounters Date Type Department Care Team (Late st Contact Info) Description 01/18/2025 9:00 AM CNA PER DIEM Clinical Support [facility] [address] [place] [address] 01/18/2025 9:30 AM CNA PER DIEM Office Visit [facility] [address] [place] [address] Anusha Campa APRN-CNP [address] [place] [address] Scheduled Orders Name Type Priority Associated Diagnoses Orde r Schedule CBC WITH DIFFERENTIAL Lab Routine S/P laparoscopic sleeve gastrectomy Elevated hemoglobin Bariatric surgery status Overweight with body mass index (BMI) of 29 to 29.9 in adult 1 Occurrences starting 07/19/2024 until 07/19/2025 COMPREHENSIVE METABOLIC PANEL Lab Routine S/P laparoscopic sleeve gastrectomy Bariatric surgery status Overweight with body mass index (BMI) of 29 to 29.9 in adult 1 Occurrences starting 07/19/2024 until 07/19/2025 FERRITIN Lab Routine S/P laparoscopic sleeve gastrectomy Elevated hemoglobin Bariatric surgery status Overweight with body mass index (BMI) of 29 to 29.9 in adult 1 Occurrences starting 07/19/2024 until 07/19/2025 LIPID PROFILE Lab Routine S/P laparoscopic sleeve gastrectomy Hypercholesteremia Thyroid 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 abnormal Bariatric surgery status Overweight with body mass index (BMI) of 29 to 29.9 in adult 1 Occurrences starting 07/19/2024 until 07/19/2025 MAGNESIUM BLOOD Lab Routine S/P laparoscopic sleeve gastrectomy Bariatric surgery status Overweight with body mass index (BMI) of 29 to 29.9 in adult 1 Occurrences starting 07/19/2024 until 07/19/2025 VITAMIN D 25-HYDROXY Lab Routine S/P laparoscopic sleeve gastrectomy Vitamin D deficiency Bariatric surgery status Overweight with body mass index (BMI) of 29 to 29.9 in adult 1 Occurrences starting 07/19/2024 until 07/19/2025 VITAMIN B12 FOLATE PANEL Lab Routine S/P laparoscopic sleeve gastrectomy Bariatric surgery status Overweight with body mass index (BMI) of 29 to 29.9 in adult Expected: 09/22/2024 (Approximate), Expires: 07/19/2025 VITAMIN B1 Lab Routine S/P laparoscopic sleeve gastrectomy Bariatric surgery status Overweight with body mass index (BMI) of 29 to 29.9 in adult 1 Occurrences starting 07/19/2024 until 07/19/2025 PTH INTACT+CALCIUM Lab Routine S/P laparoscopic sleeve gastrectomy Vitamin D deficiency Bariatric surgery status Overweight with body mass index (BMI) of 29 to 29.9 in adult 1 Occurrences starting 07/19/2024 until 07/19/2025 PHOSPHORUS BLOOD Lab Routine S/P laparoscopic sleeve gastrectomy Bariatric surgery status Overweight with body mass index (BMI) of 29 to 29.9 in adult 1 Occurrences starting 07/19/2024 until 07/19/2025 IRON + TRANSFERRIN PANEL Lab Routine S/P laparoscopic sleeve gastrectomy Elevated hemoglobin Bariatric surgery status Overweight with body mass index (BMI) of 29 to 29.9 in adult 1 Occurrences starting 07/19/2024 until 07/19/2025 TSH Lab Routine S/P laparoscopic sleeve gastrectomy Thyroid 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 abnormal Bariatric surgery status Overweight with body mass index (BMI) of 29 to 29.9 in adult 1 Occurrences starting 07/19/2024 until 08/18/2024 documented as of this encounter Visit Diagnoses Diagnosis S/P laparoscopic sleeve gastrectomy- Primary Elevated hemoglobin Other hemoglobinopathies Hypercholesteremia Pure hypercholesterolemia Vitamin D deficiency Thyroid 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 abnormal Nonspecific abnormal results of thyroid function study Bariatric surgery status Overweight with body mass index (BMI) of 29 to 29.9 in adult Neuropathy Mononeuritis of unspecified site documented in this encounter Care Teams Hris Manager Relationship Specialty Start Date End Date Betty Rodriguez MD [address] [place] [address] PCP - General Internal Medicine 09/02/22 documented as of this encounter
--- OUTSIDE RECORDS SUMMARY | 2024-07-20 07:43 | XMS_ITS ---
Author Organization [facility] Address [address] [place], [place] [address] Care Team Providers Care Industrial Organization Manager Name Role Phone NAVID STROUD Unavailable [phone] Betty Rodriguez Unavailable Unavailable ROHINI ROMAN Unavailable [phone] REASON FOR VISIT *General care Encounters Encounter Location Date Provider Diagnosis [address] [id number] 06/07/2024 ROHINI ROMAN Plan Of Treatment Next Appt Details Provider Name:ROHINI CARDOSO, 08/30/2024 08:10:00 AM, [address] [place] [address], [phone], Progress Notes * Jayesh DINHDOB: [birth year] (69 yo M)Acc No.[id number]:06/07/2024 Patient: Poncho OMAR Jayesh Provider: Poncho ROMAN :1955 A ge:69 Y S ex:Male Date:06/07/2024 Address:[facility] [address] [id number] Subjective: * Chief Complaints: * 1 . *General care. * Medical History: Objective: * Vitals: Assessment: Plan: * Treatment: * Billing Information: * Visit Code: * Procedure Codes: * Electronic signature of KOTA ROMAN DPM on 07/20/2024 at 07:42 AM CDT Sign off status: Pending * Provider: Poncho ROMAN Date: 0 06/07/2024 Generated for Adami kb/Abram/eTransmitting on: 0 07/20/2024 07:42 AM CDT
--- OUTSIDE RECORDS SUMMARY | 2024-07-20 07:43 | XMS_ITS | CONTINUITY OF CARE DOCUMENT ---
Author Name maris pollock Address Unknown Organization [facility] Address [address] [place] [address] Phone [phone] Care Team Providers Care Poultry Culler Name Role Phone Fuentes PARRISH, Breann Unavailable [phone] TRINIDAD PARRISH, SAVI Encinas Unavailable FRANCES PARRISH, WESTON Unavailable INSURANCE PROVIDERS Payer name Policy type / Coverage type Lewis red constitution party ID [employer] OPEN ACCESS Other [id number]
--- OUTSIDE RECORDS SUMMARY | 2024-07-20 07:43 | XMS_ITS | Patient Health Record ---
Author Organization [facility] Address [address] [place], [place] [address] Care Team Providers Care Sports Anchor Name Role Phone NAVID ANGLIN Unavailable [phone] Betty Rodriguez Unavailable Unavailable MISSAEL CHUN Unavailable [phone] ROHINI ROMAN Unavailable [phone] Allergies No Known Allergies Reason For Referral [...] Location Date Provider Diagnosis [facility] [address] [place], [place] [id number] 06/27/2024 ROHINI ROMAN Tinea unguium B35.1 ; Pain in right toe(s) M79.674 ; Pain in left toe(s) M79.675 ; Atherosclerosis of [place] arteries of extremities with intermittent claudication, bilateral legs I70.213 and Foot drop, left foot M21.[address] [id number] 09/08/2023 MISSAEL CHUN Tinea unguium B35.1 ; Unspecified atherosclerosis of [place] arteries of extremities, bilateral legs I70.203 ; Type 2 diabetes mellitus with diabetic peripheral angiopathy without gangrene E11.51 ; Other hammer toe(s) (acquired), right foot M20.41 ; Other hammer toe(s) (acquired), left foot M20.42 ; Pain in right toe(s) M79.674 and Pain in left toe(s) M79.[address] [id number] 11/10/2023 MISSAEL CHUN Tinea unguium B35.1 ; Unspecified atherosclerosis of [place] arteries of extremities, bilateral legs I70.203 ; Type 2 diabetes mellitus with diabetic peripheral angiopathy without gangrene E11.51 ; Other hammer toe(s) (acquired), right foot M20.41 ; Other hammer toe(s) (acquired), left foot M20.42 ; Pain in right toe(s) M79.674 and Pain in left toe(s) M79.[address] [id number] 01/19/2024 MISSAEL CHUN Tinea unguium B35.1 ; Unspecified atherosclerosis of [place] arteries of extremities, bilateral legs I70.203 ; Type 2 diabetes mellitus with diabetic peripheral angiopathy without gangrene E11.51 ; Other hammer toe(s) (acquired), right foot M20.41 ; Other hammer toe(s) (acquired), left foot M20.42 ; Pain in right toe(s) M79.674 and Pain in left toe(s) M79.[address] [id number] 04/05/2024 NAVID STROUD Tinea unguium B35.1 ; Pain in right toe(s) M79.674 ; Pain in left toe(s) M79.675 and Atherosclerosis of [place] arteries of extremities with intermittent claudication, bilateral legs I70.213 Assessments Encounter Date Diagnosis (ICD Code) Assessment Notes Treatment Notes Treatment Clinical Notes Section Notes 09/08/2023 Unspecified atherosclerosis of [place] arteries of extremities, bilateral legs (ICD-10 - [...] and prescription treatments. 11/10/2023 Unspecified atherosclerosis of [place] arteries of extremities, bilateral legs (ICD-10 - I70.203) Patient educated on risks and aggravating factors of PVD, including conservative treatment options such as a diet and exercise regimen to aid in slowing progression of vascular disease 01/19/2024 Unspecified atherosclerosis of [place] arteries of extremities, bilateral legs (ICD-10 - [...] foot (ICD-10 - M20.41) 04/05/2024 Atherosclerosis of [place] arteries of extremities with intermittent claudication, bilateral legs (ICD-10 - I70.213) 01/19/2024 Other hammer toe(s) (acquired), right foot (ICD-10 - M20.41) 06/27/2024 Atherosclerosis of [place] arteries of extremities with intermittent claudication, bilateral [...] Details Provider Name:ROHINI CARDOSO, 08/30/2024 08:10:00 AM, [address] [place] [address], [id number], Insurance Providers Payer Name Payer Address Payer Phone Subscriber Number Group Number Insured Name Patient Relationship to Insured Coverage Start Date Coverage End Date [employer] [address] [place] [phone] [id number] Jayesh DINH Self - patient is the insured
[2024-07-20 08:06] LABS: Basophils Absolute Auto 0.02 K/mm3 (0.00-0.10); Basophils Percent Auto 0.4 % (0.0-1.0); Eosinophils Absolute Auto 0.21 K/mm3 (0.02-0.50); Hematocrit 42.4 % (37.0-46.0); Hemoglobin 14.1 g/dL (12.4-15.3); Immature Granulocyte Absolute 0.01 K/mm3 (0.00-0.00); Immature Granulocyte Percent A 0.2 % (0.0-0.0); Lymphocytes Absolute Auto 1.32 K/mm3 (1.10-4.50); Lymphocytes Percent Auto 25.3 % (18.0-42.0); Mean Corpuscular HGB Conc 33.3 g/dL (32-36); Mean Corpuscular Hemoglobin 33.9 pg (27.0-31.0); Mean Corpuscular Volume 101.9 fL (78.0-102.0); Mean Platelet Volume 9.6 fl (8.7-11.0); Monocytes Absolute Auto 0.55 K/mm3 (0.10-0.90); Monocytes Percent Auto 10.6 % (2.0-11.0); Neutrophils Percent Auto 59.5 % (50.0-70.0); Platelet Count Result 163 K/mm3 (150-420); Red Blood Count 4.16 M/mm3 (4.70-6.10); Red Cell Distribution Width 11.8 % (11.6-14.4); White Blood Count 5.2 K/mm3 (4.8-10.8)
[2024-07-20 12:12] LABS: Alanine Aminotransferase 39 U/L (6-50); Albumin Level 4.7 g/dL (3.5-5.1); Alkaline Phosphatase 70 U/L (38-126); Anion Gap 5 mmol/L (4-12); Aspartate Amino Transferase 57 U/L (17-59); Bilirubin,Total 0.9 mg/dL (0.2-1.3); Blood Urea Nitrogen 18 mg/dL (9-20); Calcium 9.5 mg/dL (8.4-10.2); Carbon Dioxide 30 mmol/L (22-30); Chloride 105 mmol/L (98-107); Cholesterol 180 mg/dL (0-200); Estimated Glomerular Filt Rate > 60; Glucose 88 mg/dL (65-110); HDL Direct 83 mg/dL; Iron 163 ug/dL (49-181); LDL Cholesterol Calculated 81 mg/dL (<130); Magnesium 1.9 mg/dL (1.6-2.3); Osmolality Calculated 290 mOsm/kg (285-295); Phosphorus 3.5 mg/dL (2.5-4.5); Potassium 4.5 mmol/L (3.4-5.0); Sodium 140 mmol/L (137-145); Total Protein 7.2 g/dL (6.3-8.2); Triglycerides 81 mg/dL (<150)
[2024-07-20 12:29] LABS: Percent Iron Saturation 61 % (20-50)
[2024-07-20 12:32] LABS: Vitamin D 25 Hydroxy 64.7 ng/mL
[2024-07-20 13:21] LABS: Folic Acid > 20.0 ng/mL (2.76->20)
[2024-07-20 13:26] LABS: Ferritin > 1000.00 ng/mL (11.1-264)
[2024-07-24 16:27] LABS: Vitamin B1 47 nmol/L (8-30)
== END 2024-07-20 07:35 | disposition home or self-care (01) ==
LOC: CHSLAB 07:37
PROVIDERS: PCP Internal Medicine; Visit Provider Registered Nurse
DX: D58.2 Other hemoglobinopathies (principal); E66.3 Overweight; Z68.29 Body mass index [BMI] 29.0-29.9, adult; Z98.84 Bariatric surgery status; E78.00 Pure hypercholesterolemia, unspecified; R94.6 Abnormal results of thyroid function studies; E55.9 Vitamin D deficiency, unspecified
CPT/HCPCS: 36415; 80053; 80061; 82306; 82607; 82728; 82746; 83540; 83550; 83735; 83970; 84100; 84425; 84443; 84466; 85025

== ENCOUNTER 2024-08-30 08:50 | Outpatient (CLI) | payer MEDICARE, SELFPAY ==
--- OUTSIDE RECORDS SUMMARY | 2024-08-30 08:57 | XMS_ITS | Patient Health Record ---
Author Organization [facility] Address [address] [facility] [address] [place], [place] [id number] Care Team Providers Care Rn Ortho Name Role Phone NAVID STROUD Unavailable [phone] Betty Rodriguez Unavailable Unavailable MISSAEL CHUN Unavailable [phone] ROHINI ROMAN Unavailable [phone] Allergies No Known Allergies Reason For Referral [...] 40 MG Oral; Duration: 90 Days Active Immunizations Vaccine Route Administration Date Status Comme nts Influenza, high dose seasonal Unknown 11/22/2022 Admini stered Social History Tobacco Use: Social History Observation Description Date Details (start date - stop date) Never Smoker NA - NA Tobacco Control (Standard) Question Answer Notes Tobacco use: Nonsmoker Vital Signs Height-cm 182.88 cm 08/30/2024 Weight-kg 122.47 kg 08/30/2024 Height 72 in 08/30/2024 Weight 270 lbs 08/30/2024 BMI 36.61 kg/m2 08/30/2024 Encounters Encounter Location Date Provider Diagnosis [facility] [address] [place], [place] [id number] 06/27/2024 ROHINI ROMAN Tinea unguium B35.1 ; Pain in right toe(s) M79.674 ; Pain in left toe(s) M79.675 ; Atherosclerosis of [place] arteries of extremities with intermittent claudication, bilateral legs I70.213 and Foot drop, left foot M21.[address] [id number] 08/30/2024 ROHINI COSTELLOFORD Tinea unguium B35.1 ; Pain in right toe(s) M79.674 ; Pain in left toe(s) M79.675 ; Atherosclerosis of [place] arteries of extremities with intermittent claudication, bilateral legs I70.213 ; Foot drop, left foot M21.372 and Cellulitis of left toe L03.[address] [id number] 09/08/2023 MISSAELBRENNA CHUN Tinea unguium B35.1 ; Unspecified atherosclerosis of [place] arteries of extremities, bilateral legs I70.203 ; Type 2 diabetes mellitus with diabetic peripheral angiopathy without gangrene E11.51 ; Other hammer toe(s) (acquired), right foot M20.41 ; Other hammer toe(s) (acquired), left foot M20.42 ; Pain in right toe(s) M79.674 and Pain in left toe(s) M79.[address] [id number] 11/10/2023 MISSAEL CHUN Tinea unguium B35.1 ; Unspecified atherosclerosis of [place] arteries of extremities, bilateral legs I70.203 ; Type 2 diabetes mellitus with diabetic peripheral angiopathy without gangrene E11.51 ; Other hammer toe(s) (acquired), right foot M20.41 ; Other hammer toe(s) (acquired), left foot M20.42 ; Pain in right toe(s) M79.674 and Pain in left toe(s) M79.[address] [id number] 01/19/2024 MISSAEL CHUN Tinea unguium B35.1 ; Unspecified atherosclerosis of [place] arteries of extremities, bilateral legs I70.203 ; Type 2 diabetes mellitus with diabetic peripheral angiopathy without gangrene E11.51 ; Other hammer toe(s) (acquired), right foot M20.41 ; Other hammer toe(s) (acquired), left foot M20.42 ; Pain in right toe(s) M79.674 and Pain in left toe(s) M79.[address] [id number] 04/05/2024 NAVID STROUD Tinea unguium B35.1 ; Pain in right toe(s) M79.674 ; Pain in left toe(s) M79.675 and Atherosclerosis of [place] arteries of extremities with intermittent claudication, bilateral legs I70.213 Assessments Encounter Date Diagnosis (ICD Code) Assessment Notes Treatment Notes Treatment Clinical Notes Section Notes 09/08/2023 Unspecified atherosclerosis of [place] arteries of extremities, bilateral legs (ICD-10 - [...] treatments. 11/10/2023 Unspecified atherosclerosis of [place] arteries of extremities, bilateral legs (ICD-10 - I70.203) Patient educated on risks and aggravating factors of PVD, including conservative treatment options such as a diet and exercise regimen to aid in slowing progression of vascular disease 01/19/2024 Unspecified atherosclerosis of [place] arteries of extremities, bilateral legs (ICD-10 - [...] in right toe(s) (ICD-10 - M79.674) 08/30/2024 Tinea unguium (ICD-10 - B35.1) FUNGAL TOENAILS: Discussed various treatment options for fungal toenails including debridement, topical antifungals, oral antifungals, toenail avulsion, or toenail matrixectomy. NAIL DEBRIDEMENT: Nails 1-5 Bilateral were debrided extensively with nail nippers and emery board, reducing length and girth to pink healthy tissue with any subungual debris and necrotic tissue removed 08/30/2024 Pain in right toe(s) (ICD-10 - M79.674) 08/30/2024 Pain in left toe(s) (ICD-10 - M79.675) 06/27/2024 Pain in left toe(s) (ICD-10 - [...] - M20.41) 04/05/2024 Atherosclerosis of [place] arteries of extremities with intermittent claudication, bilateral legs (ICD-10 - I70.213) 01/19/2024 Other hammer toe(s) (acquired), right foot (ICD-10 - M20.41) 06/27/2024 Atherosclerosis of [place] arteries of extremities with intermittent claudication, bilateral legs (ICD-10 - I70.213) 08/30/2024 Atherosclerosis of [place] arteries of extremities with intermittent claudication, bilateral legs (ICD-10 - I70.213) 08/30/2024 Foot drop, left foot (ICD-10 - M21.372) left LE foot drop. Patient will get MRI and neurology consult. He will continue ROM exercises and consider PT and bracing. 06/27/2024 Foot drop, left foot (ICD-10 - [...] Cellulitis of left toe (ICD-10 - L03.032) 01/19/2024 Pain in left toe(s) (ICD-10 - M79.675) 09/08/2023 Pain in left toe(s) (ICD-10 - M79.675) 11/10/2023 Pain in left toe(s) (ICD-10 - M79.675) Plan Of Treatment Next Appt Details Provider Name:ROHINI CARDOSO, 09/13/2024 08:20:00 AM, [address] [place] [address], [phone], Provider Name:ROHINI CARDOSO, 11/01/2024 08:10:00 AM, [address] [place] [address], [id number], Insurance Providers Payer Name Payer Address Payer Phone Subscriber Number Group Number Insured Name Patient Relationship to Insured Coverage Start Date Coverage End Date [employer] [address] [place] [address] [phone] [id number] Jayesh DINH Self - patient is the insured
--- OUTSIDE RECORDS SUMMARY | 2024-08-30 08:57 | XMS_ITS | Referral Summary ---
Author Organization [facility] Address [address] [place] [address] Care Team Providers Care Curve Saw Operator Name Role Phone Betty Rodriguez MD Primary Care Provider [phone] Encounters Date Type Department Care Team Description 08/09/2024 11:40 AM CDT Lab [facility] Advanced Medicine ([facility]) [address] [phone] Foot drop, left; Neuropathy 08/09/2024 9:00 AM CDT Office Visit [facility] Neuro Muscle [address] 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 Gender Identity Not on file Sexual Orientation Not on file Last Filed Vital Signs Vital Sign Reading Time Taken Comments Blood Pressure 122/73 08/09/2024 8:10 AM CDT Pulse 93 08/09/2024 8:10 AM CDT Temperature - - Respiratory Rate - - Oxygen Saturation - - Inhaled Oxygen Concentration - - Weight 99.1 kg (218 lb 6.4 oz) 08/09/2024 8:10 A M CDT Height 182.9 cm (6') 08/09/2024 8:10 AM CDT Body Mass Index 29.62 08/09/2024 8:10 AM CDT Plan of Treatment Not on file Procedures Procedure Name Priority Date/Time Associated Diagnosis Comments NEUROMUSCULAR SPECIMEN TRACKING OUTPATIENT Routine 08/12/2024 2:13 PM CDT Foot drop, left Neuropathy VITAMIN B1 Routine 08/09/2024 10:36 AM CDT Foot drop, left Neuropathy IMMUNOTYPING Routine 08/09/2024 10:36 AM CDT Foot drop, left Neuropathy MYELOPEROXIDASE ANTIBODY Routine 08/09/2024 10:36 AM CDT Foot drop, left Neuropathy PROTEINASE-3 ANTIBODY Routine 08/09/2024 10:36 AM CDT Foot drop, left Neuropathy IGA Routine 08/09/2024 10:36 AM CDT Foot drop, left Neuropathy IGG Routine 08/09/2024 10:36 AM CDT Foot drop, left Neuropathy IGM Routine 08/09/2024 10:36 AM CDT Foot drop, left Neuropathy CRP (ACUTE PHASE) Routine 08/09/2024 10: 36 AM CDT Foot drop, left Neuropathy VITAMIN B6 Routine 08/09/2024 10:36 AM CDT Foot drop, left Neuropathy NEUROMUSCULAR TESTING Routine 08/09/2024 12:00 AM CDT Foot drop, left Neuropathy from Last 3 Months Results * Neuromuscular Specimen Tracking Outpatient Blood (08/12/2024 2:13 PM CDT) Blood Narrative RENATO GOLDBERG - 08/12/2024 2:13 PM CDT Blood draw complete us Savage Macedo MD PhD LAB BLOOD ORDERABLES Final [facility] [place] [address] * Immunotyping, serum with interpretation (08/09/2024 10:36 AM CDT) Pathologist [facility] Immunosubtraction Please see comment Comment: NO PARAPROTEIN DETECTED Reviewed and signed by Jaron Chandler MD, PhD 08/10/2024 Blood 08/09/2024 10:3 6 AM CDT 08/09/2024 11:08 AM CDT Savage Macedo MD PhD LAB BLOOD ORDERABLES Final Result Performing Organization Address City/[facility]/[place] [address] * PR3 - proteinase 3, Ab (08/09/2024 10:36 AM CDT) [facility] Proteinase 3 ab <0.2 <=0.9 Ab Index Comment: Interpretive Data Negative: <1 Ab Index Positive: > or = 1 Ab Index Current interpretive data was last revised on 2016. Blood 08/09/2024 10:3 6 AM CDT 08/09/2024 11:08 AM CDT Savage Macedo MD PhD LAB BLOOD ORDERABLES Final Result Performing Organization Address City/[facility]/ZIP Co de Phone Number [facility] [place] [address] * MPO - myeloperoxidase antibody (08/09/2024 10:36 AM CDT) [facility] Myeloperoxidase ab <0.2 <=0.9 Ab Index Comment: Interpretive Data Negative: <1 Ab Index Positive: > or = 1 Ab Index Current interpretive data was last revised on 2016. Blood 08/09/2024 10:3 6 AM CDT 08/09/2024 11:08 AM CDT Savage Macedo MD PhD LAB BLOOD ORDERABLES Final Result Performing Organization Address [facility] Co de Phone [facility] [place] [address] * CRP (acute phase) (08/09/2024 10:36 AM CDT) CRP 2.3 <=10.0 mg/L Blood 08/09/2024 10:3 6 AM CDT 08/09/2024 11:08 AM CDT Savage Macedo MD PhD LAB BLOOD ORDERABLES Final Result Performing Organization Address [facility] Phone Number [facility] [place] [place] [address] * (ABNORMAL) Vitamin B1 (08/09/2024 10:36 AM CDT) Thiamine (Vit B1) 197(H) 70 - 180 nmol/L [facility] Lab Comment: ADDITIONAL INFORMATION This test was developed and its performance characteristics determined by [facility] in a manner consistent with CLIA requirements. This test has not been cleared or approved by the U.S. Food and Drug Administration. Test Performed by: [facility] - [address] [address] [place] Cabinetmaker: Noah Rice Ph.D.; CLIA# [id number] Blood 08/09/2024 10:3 6 AM CDT 08/09/2024 11:23 AM CDT Savage Macedo MD PhD LAB BLOOD ORDERABLES Final Result Performing Organization Address [facility] de Phone Number [facility] [place] [employer] [place] [address] [place] ref [facility] * Vitamin B6 (08/09/2024 10:36 AM CDT) Pathologist [facility] Pyridoxal phosphate (Vit B6) 34 5 - 50 mcg/L [place] [facility] Comment: ADDITIONAL INFORMATION This test was developed and its performance characteristics determined by [facility] in a manner consistent with CLIA requirements. This test has not been cleared or approved by the U.S. Food and Drug Administration. Test Performed by: [facility] - [address] [address] [place] Cabinetmaker: Noah Rice Ph.D.; CLIA# [id number] Blood 08/09/2024 10:3 6 AM CDT 08/09/2024 11:23 AM CDT Savage Macedo MD PhD LAB BLOOD ORDERABLES Final Result RENATO [facility] [place] [employer] [address] [place] ref Lab * IgA (08/09/2024 10:36 AM CDT) Pathologist [facility] Immunoglobulin A 174 70 - 400 mg/dL Blood 08/09/2024 10:3 6 AM CDT 08/09/2024 11:08 AM CDT Savage Macedo MD PhD LAB BLOOD ORDERABLES Final Result RENATO [facility] [place] [employer] [place] [address] * IgM (08/09/2024 10:36 AM CDT) Immunoglobulin M 128 40 - 230 mg/dL Blood 08/09/2024 10:3 6 AM CDT 08/09/2024 11:08 AM CDT Savage Macedo MD PhD LAB BLOOD ORDERABLES Final Result Performing Organization Address [facility] Co de Phone Number RENATO [facility] [place] [address] * IgG (08/09/2024 10:36 AM CDT) Immunoglobulin G 1,167 700 - 1,600 mg/dL Blood 08/09/2024 10:3 6 AM CDT 08/09/2024 11:08 AM CDT Savage Macedo MD PhD LAB BLOOD ORDERABLES Final Result Performing Organization Address [facility] de Phone Number [facility] [place] [address] * Neuromuscular Testing Blood (08/09/2024 12:00 AM CDT) Blood (Serum) 08/09/2024 08/09/2024 Narrative NEUROMUSCULAR CLINICAL LABORATORY - 08/28/2024 1:50 PM CDT Please click on the PDF link to view the report containing this result Savage Macedo MD PhD LAB PATHOL OGY ORDERABLES Final Result Performing Organization Address [facility] Co de Phone Number NEUROMUSCULAR CLINICAL LABORATORY Room [address] [place] [address] from Last [address] [address] [employer] MEDICARE [facility] MEDICARE Address: [facility] [id number] [place] [address] [facility] MEDICARE [facility] Address: [facility] [id number] [place] [address] Care Teams Curve Saw Operator Relationship Specialty Start Date End Date Betty Rodriguez MD [address], [place] [id number] PCP - General Internal Medicine 07/18/24
--- OUTSIDE RECORDS SUMMARY | 2024-08-30 08:57 | XMS_ITS ---
Author Organization [facility] Address [address] [place], [place] [id number] Care Team Providers Care Temperer Name Role Phone NAVID STROUD Unavailable [phone] Betty Rodriguez Unavailable Unavailable ROHINI ROMAN Unavailable [phone] REASON FOR VISIT *General care Encounters Encounter Location Date Provider Diagnosis [address] [id number] 06/07/2024 ROHINI ROMAN Plan Of Treatment Next Appt Details Provider Name:ROHINI CARDOSO, 09/13/2024 08:20:00 AM, [address] [place] [address], [id number], Provider Name:ROHINI CARDOSO, 11/01/2024 08:10:00 AM, [address] [place] [address], [id number], Progress Notes * Jayesh DINHDOB: [birth year] (69 yo M)Acc No.[id number]:06/07/2024 Patient: Jayesh CRUZ Provider: Poncho ROMAN :1955 A ge:69 Y S ex:Male Date:06/07/2024 Address:[facility] [address] [id number] Subjective: * Chief Complaints: * 1 . *General care. * Medical History: Objective: * Vitals: Assessment: Plan: * Treatment: * Billing Information: * Visit Code: * Procedure Codes: * Electronic signature of KOTA ROMAN DPM on 08/30/2024 at 08:56 AM CDT Sign off status: Pending * Provider: Poncho ROMAN Date: 0 06/07/2024 Generated for Leigh Walsh/Kenia on: 0 08/30/2024 08:56 AM CDT
--- OUTSIDE RECORDS SUMMARY | 2024-08-30 08:57 | XMS_ITS | Clinical Summary ---
Author Organization [facility] Address [address] [facility] [place] [address] Care Team Providers Care Tutor Name Role Phone Betty Rodriguez MD Primary Care Provider [phone] Source Comments [facility],non-owned Affiliates and Associated Physician Practices is amultiple site organization consisting of ambulatory clinics and hospital sitesin [place], [place], [place] and [place]. This disclosure is being madepursuant to the Care Everywhere program and may not contain all information available regarding this patient. Last updated 17.[facility] Allergies No known active allergies Medications * [...] dose, currently 2 capsules daily Active Calcium Citrate-Vitamin D (CALCIUM CITRATE + PO) Take 500 mg by mouth 3 times daily Active Active Problems Problem Noted Date Diagnosed Date Morbid obesity 01/17/2023 Encounters Date Type Department Care Team Description 07/30/2024 Orders Only [facility] [address] [place] [address] Anusha Campa, MORTGAGE LOAN INTERVIEWER-DEPARTMENT CHAIRPERSON S/P laparoscopic sleeve gastrectomy; Vitamin D deficiency; Bariatric surgery status; Overweight with body mass index (BMI) of 29 to 29.9 in adult 07/25/2024 Orders Only [facility] [address] [place] [address] Anusha Campa APRN-CNP S/P laparoscopic sleeve gastrectomy; Elevated hemoglobin; Bariatric surgery status; Overweight with body mass index (BMI) of 29 to 29.9 in adult 07/24/2024 Orders Only [facility] [address] [place] [address] Anusha Campa APRN-CNP S/P laparoscopic sleeve gastrectomy; Bariatric surgery status; Overweight with body mass index (BMI) of 29 to 29.9 in adult; Elevated hemoglobin; Hypercholesteremia; Thyroid 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 abnormal; Vitamin D deficiency 07/19/2024 9:00 AM CDT Office Visit [facility] [address] [place] [address] Anusha Campa APRN-CNP S/P laparoscopic sleeve gastrectomy (Primary Dx); Elevated hemoglobin; Hypercholesteremia; Vitamin D deficiency; Thyroid 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 abnormal; Bariatric surgery status; Overweight with body mass index (BMI) of 29 to 29.9 in adult; Neuropathy from Last 3 Months Family History Medical [...] Oxygen Concentration 21% 01/17/2023 1 1:15 PM [employer] OFFICIAL Weight 97.3 kg (214 lb 9.6 oz) 07/19/2024 8:00 A M CDT Height 182.9 cm (6') 07/19/2024 8:00 AM CDT Body Mass Index 29.1 07/19/2024 8:00 AM CDT Plan of Treatment Upcoming Encounters Date Type Department Care Team (Late st Contact Info) Description 01/18/2025 9:00 AM [employer] OFFICIAL Clinical Support [facility] [address] [place] [address] 01/18/2025 9:30 AM [employer] OFFICIAL Office Visit [facility] [address] [place] [address] Anusha Campa, MORTGAGE LOAN INTERVIEWER-DEPARTMENT CHAIRPERSON [address], [place] [address] Health Maintenance Due Date Last Done Comments [...] MEDICARE AWV CALENDAR YEAR 2024 INFLUENZA VACCINE (#1) 2024 11/22/2022 COLON MONITORING 11/12/2025 11/12/2022 Colorectal Cancer Screening 11/12/2025 EGD SURVEILLANCE 04/26/2027 04/25/2024, , 11/12/2022 SCREENING FOR DIABETES 07/21/2027 , 07/21/2023, 05/12/2023, Additional history exists Respiratory Syncytial Virus (RSV) Vaccine Pt: or over 60 yrs (1 - 1-dose 75+ series) 02/04/2028 LIPID TESTING 07/20/2029 07/20/2024, 07/2023, 05/12/2023, Additional history exists COLONOSCOPY - COLON CA [...] this topic Medical Devices Implanted Type Area Chef German Device Identifier Shelf Expiration Date Model / Serial / Lot Kit Tissue Clsr Duo Tssl 1 Prefl Syr - [id number] Implanted:Qty: 1 on 01/17/2023 by Eliana Enriquez MD at [facility] [id number] / [id number] / [id number] Procedures Procedure Name Priority Date/Time Associated Diagnosis Comments PTH INTACT+CALCIUM Routine 07/20/2024 S/P laparoscopic sleeve gastrectomy Vitamin D deficiency Bariatric surgery status Overweight with body mass index (BMI) of 29 to 29.9 in adult VITAMIN B1 Routine 07/20/2024 S/P laparoscopic sleeve gastrectomy Bariatric surgery status Overweight with body mass index (BMI) of 29 to 29.9 in adult CBC W AUTO DIFFERENTIAL Routine 07/20/2024 S/P laparoscopic sleeve gastrectomy Elevated hemoglobin Bariatric surgery status Overweight with body mass index (BMI) of 29 to 29.9 in adult TSH Routine 07/20/2024 S/P laparoscopic sleeve gastrectomy Thyroid 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 abnormal Bariatric surgery status Overweight with body mass index (BMI) of 29 to 29.9 in adult VITAMIN B12 FOLATE PANEL Routine 07/20/2024 S/P laparoscopic sleeve gastrectomy Bariatric surgery status Overweight with body mass index (BMI) of 29 to 29.9 in adult VITAMIN D 25-HYDROXY Routine 07/20/2024 S/P laparoscopic sleeve gastrectomy Vitamin D deficiency Bariatric surgery status Overweight with body mass index (BMI) of 29 to 29.9 in adult LIPID PROFILE Routine 07/20/2024 S/P laparoscopic sleeve gastrectomy Hypercholesteremia Thyroid 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 abnormal Bariatric surgery status Overweight with body mass index (BMI) of 29 to 29.9 in adult FERRITIN Routine 07/20/2024 S/P laparoscopic sleeve gastrectomy Elevated hemoglobin Bariatric surgery status Overweight with body mass index (BMI) of 29 to 29.9 in adult IRON + TRANSFERRIN PANEL Routine 07/20/2024 S/P laparoscopic sleeve gastrectomy Elevated hemoglobin Bariatric surgery status Overweight with body mass index (BMI) of 29 to 29.9 in adult MAGNESIUM BLOOD Routine 07/20/2024 S/P laparoscopic sleeve gastrectomy Bariatric surgery status Overweight with body mass index (BMI) of 29 to 29.9 in adult PHOSPHORUS BLOOD Routine 07/20/2024 S/P laparoscopic sleeve gastrectomy Bariatric surgery status Overweight with body mass index (BMI) of 29 to 29.9 in adult COMPREHENSIVE METABOLIC PANEL Routine 07/20/2024 S/P laparoscopic sleeve gastrectomy Bariatric surgery status Overweight with body mass index (BMI) of 29 to 29.9 in adult from Last 3 Months Results * PTH INTACT+CALCIUM (07/20/2024) Blood BLOOD SPECIMEN / Unknown 07/20/2024 Anusha Gallegosy [facility] CHE[facility] ORDERABL ES Final Result Performing Organization Address City/[facility]/ZIP Co de Phone Number OTHER LAB * VITAMIN B1 (07/20/2024) Blood BLOOD SPECIMEN / Unknown 07/20/2024 Anusha Gallegosy [facility] - CHEMI[facility]Y ORDERABL ES Final Result Performing Organization Address [facility] Co de Phone Number OTHER LAB * VITAMIN D 25-HYDROXY (07/20/2024) Blood BLOOD SPECIMEN / Unknown 07/20/2024 Anusha [place] Katheryn [facility] - CHEMISTRY ORDERABL ES Final Result Performing Organization Address [facility] Co de Phone Number OTHER LAB * CBC WITH DIFFERENTIAL (07/20/2024) Blood BLOOD SPECIMEN / Unknown 07/20/2024 [facility]usha [place] Katheryn [facility] - HEMATOLOGY ORDERAB LES Final Result Performing Organization Address [facility] Co de Phone Number OTHER LAB * COMPREHENSIVE METABOLIC PANEL (07/20/2024) Blood BLOOD SPECIMEN / Unknown 07/20/2024 Anusha [place] Katheryn [facility] - CHEMISTRY ORDERABL ES Final Result OTHER LAB * PHOSPHORUS BLOOD (07/20/2024) Blood BLOOD SPECIMEN / Unknown 07/20/2024 Anusha [place] Katheryn [facility] - CHEMISTRY ORDERABL ES Final Result Performing Organization Address City/[facility]/ZIP Co de Phone Number OTHER LAB * MAGNESIUM BLOOD (07/20/2024) Blood BLOOD SPECIMEN / Unknown 07/20/2024 us Anusha Campa [facility] - CHEMISTRY ORDERABL ES Final Result Performing Organization Address [facility] de Phone Number OTHER LAB * VITAMIN B12 FOLATE PANEL (07/20/2024) Blood BLOOD SPECIMEN / Unknown 07/20/2024 Anusha Campa [facility] - CHEMISTRY ORDERABL ES Final Result Performing Organization Address [facility] de Phone Number OTHER LAB * TSH (07/20/2024) Blood BLOOD SPECIMEN / Unknown 07/20/2024 Result [facility] Anusha Gallegosy [facility] - CHEMISTRY ORDERABL ES Final Result Performing Organization Address [facility] de Phone Number OTHER LAB * IRON + TRANSFERRIN PANEL (07/20/2024) Blood BLOOD SPECIMEN / Unknown 07/20/2024 Result [facility] us Anusha [place] Katheryn [facility] - CHEMISTRY ORDERABL ES Edited Result - Final Performing Organization Address [facility] Co de Phone Number OTHER LAB * FERRITIN (07/20/2024) Blood BLOOD SPECIMEN / Unknown 07/20/2024 Anusha Gallegosy [facility] - CHEMISTRY ORDERABL ES Final Result Performing Organization Address [facility] Co de Phone Number OTHER LAB * LIPID PROFILE (07/20/2024) Blood BLOOD SPECIMEN / Unknown 07/20/2024 Anusha Campa MORTGAGE LOAN INTERVIEWER-DEPARTMENT CHAIRPERSON LAB - CHEMISTRY ORDERABL ES Final Result OTHER LAB from Last 3 Months Insurance [employer] [place] [address] [employer] MEDICARE ADV SELF PAY NO INSURANCE Member Subscriber Plan / Payer (Ef fective for All Dates) Name:Stanley Dinh Member ID:Not on file Relation to Subscriber:Not on file Name:STANLEY DINH Subscriber ID:Not on file (Home) Address: [address] [place] [address] [place] [address] Payer ID:Not on file Group ID:Not on file Type:Self Pay Address: [place], [place] [address] Advance Directives Documents on File Type Date Recorded 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 Power of Attorne y for Healthcare * Full Code (Latest Code Status on File) Date Activated Date Inactivated Comments 01/17/2023 12:21 PM 01/18/2023 3:25 PM Care Teams Tutor Relationship Specialty Start Date End Date Betty Rodriguez MD [address] [place] [address] PCP - General Internal Medicine 09/02/22
--- OUTSIDE RECORDS SUMMARY | 2024-08-30 08:57 | XMS_ITS | Clinical Summary ---
Author Organization [facility] Address [address] [place] [address] Care Team Providers Care Nonfarm Animal Caretaker Name Role Phone Betty Rodriguez MD Primary Care Provider Allergies No known active allergies Medications No known medications Active Problems No known active problems Encounters Date Type Department Care Team Description 08/09/2024 11:40 AM CDT Lab [facility] Advanced Medicine ([facility]) [address] [place] [phone] Foot drop, left; Neuropathy 08/09/2024 9:00 AM CDT Office Visit [facility] Neuro Muscle [address] [facility] 6th [address] [place] [phone] Savage Macedo MD PhD Foot drop, left; Neuropathy from Last 3 Months Social History Tobacco Use Types Packs/Day Years Used Date Smoking Tobacco: Former Cigarettes Smokeless Tobacco: Never Tobacco Cessation:Counseling Given: Not Answered Sex and Gender Information Value Date Recorded Sex Assigned at Not on file Legal Sex Male 8:39 AM [employer] EX[employer]IVE [employer]URITY Gender Identity Not on file Sexual Orientation Not on file Obstetrics History Last Filed Vital Signs Vital Sign Reading [...] 08/09/2024 8:10 AM CDT Plan of Treatment Health Maintenance Due Date Last Done Comments Colon Cancer Screening-Colonoscopy 1955 Depression Screening 1955 Fall Risk Assessment 1955 Hepatitis C Screening 1955 Hepatitis B Screening 1971 Abdominal Aortic Aneurysm (A AA) Screen 2018 Well Visit 65+ 2018 Covid-19 Vaccine (4 - 2023-2 5 season) 2023 12/31/2020, 05/19/2020, 04/27/2020 Influenza Vaccine (#1) 2024 , 01/11/2023, 11/22/2022, Additional history exists DTaP/Tdap/Td Vaccine (4 - Td or Tdap) 06/15/2033 06/16/2023, 04/10/2022, 08/21/2012 Zoster Vaccine Completed 01/14/2018, 10/16, 03/23/2013 Pneumococcal vaccine 65+ Completed 04/20/2018, 08/16 Procedures Procedure Name Priority Date/Time Associated Diagnosis [...] Blood (08/12/2024 2:13 PM CDT) [facility] - 08/12/2024 2:13 PM CDT Blood draw complete Savage Macedo MD PhD LAB BLOOD ORDERABLES Final Result Performing Organization Address City/[facility]/ZIP Co de Phone Number [facility] Department of [employer] [place] [address] * Immunotyping, serum with interpretation (08/09/2024 10:36 AM CDT) [facility] Immunosubtraction Please see comment Comment: NO PARAPROTEIN DETECTED Reviewed and signed by Jaron Chandler MD, PhD 08/10/2024 Blood 08/09/2024 10:3 6 AM CDT 08/09/2024 11:08 AM CDT Savage Macedo MD PhD LAB BLOOD ORDERABLES Final Result [facility] [employer] [place] [address] * PR3 - proteinase 3, Ab (08/09/2024 10:36 AM CDT) Pathologist [facility] Proteinase 3 ab <0.2 <=0.9 Ab Index Comment: Interpretive Data Negative: <1 Ab Index Positive: > or = 1 Ab Index Current interpretive data was last revised on 2016. Blood 08/09/2024 10:3 6 AM CDT 08/09/2024 11:08 AM CDT Savage Macedo MD PhD LAB BLOOD ORDERABLES Final Result Performing Organization Address [facility] Co de Phone Number [facility] [employer] [place] [address] * MPO - myeloperoxidase antibody (08/09/2024 10:36 AM CDT) Myeloperoxidase ab <0.2 <=0.9 Ab Index Comment: Interpretive Data Negative: <1 Ab Index Positive: > or = 1 Ab Index Current interpretive data was last revised on 2016. Blood 08/09/2024 10:3 6 AM CDT 08/09/2024 11:08 AM CDT aSvage Macedo MD PhD LAB BLOOD ORDERABLES Final Result Performing Organization Address [facility] [place] [address] * CRP (acute phase) (08/09/2024 10:36 AM CDT) Pathologist [facility] CRP 2.3 <=10.0 mg/L Blood 08/09/2024 10:3 6 AM CDT 08/09/2024 11:08 AM CDT Savage Macedo MD PhD LAB BLOOD ORDERABLES Final Result Performing Organization Address City/[facility] [place] [address] * (ABNORMAL) Vitamin B1 (08/09/2024 10:36 AM CDT) Thiamine (Vit B1) 197(H) 70 - 180 nmol/L [facility] Comment: ADDITIONAL INFORMATION This test was developed and its performance characteristics determined by [facility] in a manner consistent with CLIA requirements. This test has not been cleared or approved by the U.S. Food and Drug Administration. Test Performed by: [facility] [place] [address] Computer Engineering Professor: Noah Rice Ph.D.; CLIA# [id number] Blood 08/09/2024 10:3 6 AM CDT 08/09/2024 11:23 AM CDT Savage Macedo MD PhD LAB BLOOD ORDERABLES Final Result Performing Organization Address [facility] Co de Phone Number [facility] [place] [address] [place] [facility] * Vitamin B6 (08/09/2024 10:36 AM CDT) Pathologist [facility] Pyridoxal phosphate (Vit B6) 34 5 - 50 mcg/L [facility] Comment: ADDITIONAL INFORMATION This test was developed and its performance characteristics determined by [facility] in a manner consistent with CLIA requirements. This test has not been cleared or approved by the U.S. Food and Drug Administration. Test Performed by: [facility] - [address] [address] Computer Engineering Professor: Noah Rice Ph.D.; CLIA# [id number] Blood 08/09/2024 10:3 6 AM CDT 08/09/2024 11:23 AM CDT us Savage Macedo MD PhD LAB BLOOD ORDERABLES Final Result Performing Organization Address City/[facility]/ZIP Co de Phone Number [facility] Department [employer] [place] [address] [facility] * IgA (08/09/2024 10:36 AM CDT) Pathologist [facility] Immunoglobulin A 174 70 - 400 mg/dL Blood 08/09/2024 10:3 6 AM CDT 08/09/2024 11:08 AM CDT Savage Macedo MD PhD LAB BLOOD ORDERABLES Final Result Performing Organization Address City/[facility] [place] [address] * IgM (08/09/2024 10:36 AM CDT) [facility] Immunoglobulin M 128 40 - 230 mg/dL Blood 08/09/2024 10:3 6 AM CDT 08/09/2024 11:08 AM CDT Savage Macedo MD PhD LAB BLOOD ORDERABLES Final Result Performing Organization Address City/[facility]/[place] [address] * IgG (08/09/2024 10:36 AM CDT) [facility] Immunoglobulin G 1,167 700 - 1,600 mg/dL Blood 08/09/2024 10:3 6 AM CDT 08/09/2024 11:08 AM CDT us Savage Macedo MD PhD LAB BLOOD ORDERABLES Final Result Performing Organization Address City/[facility]/ZIP Co de Phone Number [facility] [place] [address] * Neuromuscular Testing Blood (08/09/2024 12:00 AM CDT) Blood (Serum) 08/09/2024 08/09/2024 Narrative [facility] - 08/28/2024 1:50 PM CDT Please click on the PDF link to view the report containing this result us Savage Macedo MD PhD LAB PATHOL OGY ORDERABLES Final Result [facility] [address] [facility] [address] [place] [address] from Last [address] [place] [address] [facility] MEDICARE [facility] MEDICARE Care Teams Nonfarm Animal Caretaker Relationship Specialty Start Date End Date Betty Rodriguez MD [address] [place] [address] PCP - General Internal Medicine 07/18/24
--- OUTSIDE RECORDS SUMMARY | 2024-08-30 08:57 | XMS_ITS ---
Author Organization [facility] Address [address] [place], [place] [address] Care Team Providers Care Crossbar Switch Adjuster Name Role Phone NAVID STROUD Unavailable [phone] Betty Rodriguez Unavailable Unavailable ROHINI ROMAN Unavailable [phone] REASON FOR VISIT *General care Medications Medication [...] Location Date Provider Diagnosis [facility] [place] [address] [address] [place], [place] [id number] 06/27/2024 ROHINI ROMAN Tinea unguium B35.1 ; Pain in right toe(s) M79.674 ; Pain in left toe(s) M79.675 ; Atherosclerosis of agdaagux arteries of extremities with intermittent claudication, bilateral [...] toe(s) (ICD-10 - M79.675) 06/27/2024 Atherosclerosis of agdaagux arteries of extremities with intermittent claudication, bilateral [...] sooner if problems arise Provider Name:ROHINI CARDOSO, 09/13/2024 08:20:00 AM, [address] [place] [address], [phone], Provider Name:ROHINI CARDOSO, 11/01/2024 08:10:00 AM, [address] [place] [address], [phone], Progress Notes * Jayesh IDNHDOB: 3 (69 yo M)Acc No.[id number]:06/27/2024 Patient: Poncho GUTIERREZJayesh GORDON Provider: Poncho ROMAN :1955 A ge:69 Y S ex:Male Date:06/27/2024 Address:[facility] [address], [id number] Subjective: * Chief Complaints: * 1 . *General care. * HPI: H PI: General care P marco a presents to the office for diabetic foot [...] - M79.675 4 . A therosclerosis of agdaagux arteries of extremities with intermittent claudication, bilateral [...] arise) * Billing Information: * Visit Code: 42811 Office Visit, Est Pt., Level 3. * Procedure Codes: * Electronic signature of KOTA ROMAN DPM on 08/30/2024 at 08:56 AM CDT Sign off status: Pending * Provider: Poncho ROMAN Date: 0 06/27/2024 Generated for Leigh quiles/Abram/Kenia on: 0 08/30/2024 08:56 AM CDT History and Physical Notes * [...]
[2024-08-30 09:33] LABS: CRP < 0.5 mg/dL (<1.0)
== END 2024-08-30 08:51 | disposition home or self-care (01) ==
LOC: CHSLAB 08:51
PROVIDERS: PCP Internal Medicine; Visit Provider Nurse Practitioner
DX: K51.90 Ulcerative colitis, unspecified, without complications (principal); R79.89 Other specified abnormal findings of blood chemistry
CPT/HCPCS: 36415; 85652; 86140

== ENCOUNTER 2024-10-16 00:48 | Day surgery (SDC) | payer MEDICARE, SELFPAY ==
--- OUTSIDE RECORDS SUMMARY | 2024-06-07 03:30 | XMS_ITS ---
Author Organization [facility] Address [address] [place], [place] [id number] Care Team Providers Care Marine Transport Professionals Name Role Phone NAVID STROUD Unavailable [phone] Betty Rodriguez Unavailable Unavailable ROHINI ROMAN Unavailable [phone] REASON FOR VISIT *General care Encounters Encounter Location Date Provider Diagnosis [address] [phone] 06/07/2024 ROHINI ROMAN Plan Of Treatment Next Appt Details Provider Name:ROHINI CARDOSO, 11/01/2024 08:10:00 AM, [address] [place] [address], [id number], Progress Notes * Jayesh DINHDOB: 3 (69 yo M)Acc No.[id number]:06/07/2024 Patient: Poncho NELSON Jayesh Provider: Poncho ROMAN :1955 A ge:69 Y S ex:Male Date:06/07/2024 Address:[facility] [address] [id number] Subjective: * Chief Complaints: * 1 . *General care. * Medical History: Objective: * Vitals: Assessment: Plan: * Treatment: * Billing Information: * Visit Code: * Procedure Codes: * Electronic signature of KOTA ROMAN DPM on 10/16/2024 at 12:51 AM CDT Sign off status: Pending * Provider: Poncho ROMAN Date: 0 06/07/2024 Generated for Adami ng/Fajanene/eTransmitting on: 0 10/16/2024 12:51 AM CDT
--- OUTSIDE RECORDS SUMMARY | 2024-06-27 05:40 | XMS_ITS ---
Author Organization [facility] Address [address] [place], [place] [address] Care Team Providers Care Cooking Show Host Name Role Phone NAVID STROUD Unavailable [phone] Betty Rodriguez Unavailable Unavailable ROHINI ROMAN Unavailable [phone] REASON FOR VISIT *General care Medications Medication SIG (Take, Route, Frequency, Duration) Notes Start Date End Date Status Lisinopril-hydroCHLOROthiaz teresita 10-12.5 MG Oral; Duration: 90 Days Ac tive Amoxicillin-Pot Clavulanate 875-125 MG Oral; Duration: 5 Days Activ e Atorvastatin Calcium 40 MG Oral; Duration: 90 Days Active Vital Signs Height 72 in 06/27/2024 Weight 270 lbs 06/27/2024 BMI 36.61 kg/m2 06/27/2024 Height-cm 182.88 cm 06/27/2024 Weight-kg 122.47 kg 06/27/2024 Encounters Encounter Location Date Provider Diagnosis [facility] [place] [address] [place], [place] [id number] 06/27/2024 ROHINI ROMAN Tinea unguium B35.1 ; Pain in right toe(s) M79.674 ; Pain in left toe(s) M79.675 ; Atherosclerosis of [place] arteries of extremities with intermittent claudication, bilateral legs I70.213 and Foot drop, left foot M21.372 Assessments Encounter Date Diagnosis (ICD Code) Assessment Notes Treatment Notes Treatment Clinical Notes Section Notes 06/27/2024 Tinea unguium (ICD-10 - B35.1) FUNGAL TOENAILS: Discussed various treatment options for fungal toenails including debridement, topical antifungals, oral antifungals, toenail avulsion, or toenail matrixectomy. NAIL DEBRIDEMENT: Nails 1-5 Bilateral were debrided extensively with nail nippers and emery board, reducing length and girth to pink healthy tissue with any subungual debris and necrotic tissue removed 06/27/2024 Pain in right toe(s) (ICD-10 - M79.674) 06/27/2024 Pain in left toe(s) (ICD-10 - M79.675) 06/27/2024 Atherosclerosis of [place] arteries of extremities with intermittent claudication, bilateral legs (ICD-10 - I70.213) 06/27/2024 Foot drop, left foot (ICD-10 - M21.372) left LE foot drop. Patient will get MRI and neurology consult. He will continue ROM exercises and consider PT and bracing. Plan Of Treatment Treatment Notes Assessment Notes Tinea unguium FUNGAL TOENAILS: Discussed various treatment options for fungal toenails including debridement, topical antifungals, oral antifungals, toenail avulsion, or toenail matrixectomy. NAIL DEBRIDEMENT: Nails 1-5 Bilateral were debrided extensively with nail nippers and emery board, reducing length and girth to pink healthy tissue with any subungual debris and necrotic tissue removed Foot drop, left foot left LE foot drop. Patient will get MRI and neurology consult. He will continue ROM exercises and consider PT and bracing. Next Appt Details Follow Up: 10-12 Weeks, Reas on: At Risk Foot care, sooner if problems arise Provider Name:ROHINI CARDOSO, 11/01/2024 08:10:00 AM, [address] [place] [address], [id number], Progress Notes * Jayesh DINHDOB: 3 (69 yo M)Acc No.[id number]:06/27/2024 Patient: Jayesh CRUZ Provider: Poncho ROMAN :1955 A ge:69 Y S ex:Male Date:06/27/2024 Address:[facility] [id number] Subjective: * Chief Complaints: * 1 . *General care. * HPI: H PI: General care P atient presents to the office for diabetic foot care. Patient states that their nails are thickened, elongated and painful. Patient states that it is aggravated by shoe gear. Onset is gradual., Patient denies taking blood thinners., Date last seen by Dr. Rodriguez was 06/2024., Initials mca. N ew Complaint E stablished patient presents with a new complaint of left drop foot. He does not recall any other signs of stroke or any trauma. He did injure his back about 2.5 months ago and pain and numbness left low back and pain running down left leg. He has an appt with a neurologist and and MRI scheduled via his PCP. . * ROS: G eneral / Constitutional: Patient denies c hills, fever, weight loss. ? M usculoskeletal: Patient denies n euroma, broken foot bone. P atient complains of m uscle stiffness, weakness. P eripheral Vascular: Patient denies p ain / cramping in legs after exertion, ulceration of feet. P atient complains of e jf bilateral LE chronic diffuse nonpainful. ? S kin: Patient complains of f ungal nails, ingrown nails. ? N eurologic: Patient denies b alance difficulty, confusion, difficulty speaking, dizziness. P atient complains of n umbness. * Medical History: * Medications: T aking Atorvastatin Calcium 40 MG Tablet Oral , Taking Lisinopril- hydroCHLOROthiazide 10-12.5 MG Tablet Oral , Taking Amoxicillin-Pot Clavulanate 875-125 MG Tablet Oral , Medication List reviewed and reconciled with the patient Objective: * Vitals: W t:270lbs, Wt-k.47 kg, Ht: 72 in, Ht-cm: 182.88 cm, BMI:36.61Index, Body Surface Area: 2.49. * Examination: C onstitutional: Constitutional T he patient is awake, alert, well developed, well groomed and well nourished. D ermatologic: Skin findings: S kin is thin, atrophic and lacking pedal hair, hemosiderin discoloration with shininess to LE bilateral. Nail pathology: N ails 1, 2, 3, 4, and 5 bilateral are elongated, thick, discolored, and dystrophic with subungual debris. They are painful to palpation. ? V ascular: Dorsalis pedis pulse: 1 /4 b ilateral. Posterior tibial pulse: 0 /4 b ilateral. Capillary refill: g reater than 3 seconds. Edema: + 2 edema, bilateral calves loose and nontender.? N eurologic: Gross sensation G ross sensation is intact to light touch.? M usculoskeletal: Muscle Strength M uscle strength is 4/5 left foot on dorsiflexion and eversion. 5/5 in regards to plantarflexion and inversion in bilateral lower extremities and right dorsiflexion and eversion.. Pain on palpation P ain on palpation of the 1st bilateral nail border. Assessment: * Assessment: 1. T inea unguium - B35.1 (Primary) 2 . P ain in right toe(s) - M79.674? 3. P ain in left toe(s) - M79.675 4 . A therosclerosis of [place] arteries of extremities with intermittent claudication, bilateral legs - I70.213 5 . F oot drop, left foot - M21.372 Plan: * Treatment: 2. F oot drop, left foot Notes: left LE foot drop. Patient will get MRI and neurology consult. He will continue ROM exercises and consider PT and bracing. * Immunizations: Immunization record has been reviewed and updated. * Follow Up: 1 0-12 Weeks (Reason: At Risk Foot care, sooner if problems arise) * Billing Information: * Visit Code: 11210 Office Visit, Est Pt., Level 3. * Procedure Codes: * Electronic signature of KOTA ROMAN DPM on 10/16/2024 at 12:51 AM CDT Sign off status: Pending * Provider: Poncho ROMAN Date: 0 06/27/2024 Generated for Leigh quiles/Abram/Kenia on: 0 10/16/2024 12:51 AM CDT History and Physical Notes * [...] Date last seen by Dr. Rodriguez was 06/2024., Initials [facility] New Complaint Established patient presents with a new complaint of left drop foot. He does not recall any other signs of stroke or any trauma. He did injure his back about 2.5 months ago and pain and numbness left low back and pain running down left leg. He has an appt with a neurologist and and MRI scheduled via his PCP. Examination Category Sub-Category Detail Notes Category Not es Dermatologic Skin findings: Skin is thin, at rophic and lacking pedal hair, hemosiderin discoloration with shininess to LE bilateral Nail pathology: Nails 1, 2, 3, 4, an d 5 bilateral are elongated, thick, discolored, and dystrophic with subungual debris. They are painful to palpation Neurologic Gross sensation Gross sensation is intact to light touch Vascular Dorsalis pedis pulse: 1/4 bilateral Edema: +2 edema, bilateral calves loose and nontender Capillary refill: greater than 3 secon ds Posterior tibial pulse: 0/4 bilateral Musculoskeletal Muscle Strength Muscle strength is 4/5 left foot on dorsiflexion and eversion. 5/5 in regards to plantarflexion and inversion in bilateral lower extremities and right dorsiflexion and eversion. Pain on palpation Pain on palpation of the 1st bilateral nail border Constitutional Constitutional The patient is a wake, alert, well developed, well groomed and well nourished
--- OUTSIDE RECORDS SUMMARY | 2024-08-30 03:10 | XMS_ITS ---
Author Organization [facility] Address [address] [place], [place] [id number] Care Team Providers Care Environmental Protection Economist Name Role Phone NAVID STROUD Unavailable [phone] Betty Rodriguez Unavailable Unavailable ROHINI ROMAN Unavailable [phone] Allergies No Known Allergies REASON FOR VISIT *General care Medications Medication SIG (Take, Route, Frequency, Duration) Notes Start Date End Date Status Cephalexin 250 MG 1 capsule Orally Onc e a day; Duration: 10 days 08/30/2024 09/09/2024 Active Amoxicillin-Pot Clavulanate 875-125 MG Oral; Duration: 5 Days Active Lisinopril-hydroCHLOROthia zide 10-12.5 MG Oral; Duration: 90 Days A ctive Atorvastatin Calcium 40 MG Oral; Duration: 90 Days Active Social History Tobacco Use: Social History Observation Description Date Details (start date - stop date) Never Smoker NA - NA Tobacco Control (Standard) Question Answer Notes Tobacco use: Nonsmoker Vital Signs Height 72 in 08/30/2024 Weight 270 lbs 08/30/2024 BMI 36.61 kg/m2 08/30/2024 Height-cm 182.88 cm 08/30/2024 Weight-kg 122.47 kg 08/30/2024 Encounters Encounter Location Date Provider Diagnosis [address] [id number] 08/30/2024 ROHINI ROMAN Tinea unguium B35.1 ; Ingrowing nail L60.0 ; Pain in right toe(s) M79.674 ; Cellulitis of left toe L03.032 ; Pain in left toe(s) M79.675 ; Atherosclerosis of [place] arteries of extremities with intermittent claudication, bilateral legs I70.213 and Foot drop, left foot M21.372 Assessments Encounter Date Diagnosis (ICD Code) Assessment Notes Treatment Notes Treatment Clinical Notes Section Notes 08/30/2024 Tinea unguium (ICD-10 - B35.1) FUNGAL TOENAILS: Discussed various treatment options for fungal toenails including debridement, topical antifungals, oral antifungals, toenail avulsion, or toenail matrixectomy. NAIL DEBRIDEMENT: Nails 1-5 Bilateral were debrided extensively with nail nippers and emery board, reducing length and girth to pink healthy tissue with any subungual debris and necrotic tissue removed 08/30/2024 Ingrowing nail (ICD-10 - L60.0) Partial Nail Avulsion medial and lateral left 1st digit: I discussed various treatment options to the patient for their nail condition. The patient decided on non-permenant removal of the nail border. The consent was signed and placed in the patients chart and all questions were answered. Following skin prep, the toe was injected with 3ccs of a 1:1 mixture of 0.5% marcaine plain and 1% lidocaine plain. A digital tournequet was applied and the offending nail border was removed. The digital tourniquet was released and the toe was cleansed with isopropyl aclcohol. A dry sterile compressive dressing was applied and the patient was given soaking instructions. 08/30/2024 Pain in right toe(s) (ICD-10 - M79.674) 08/30/2024 Cellulitis of left toe (ICD-10 - L03.032) Rx given for antibiotic 08/30/2024 Pain in left toe(s) (ICD-10 - M79.675) 08/30/2024 Atherosclerosis of [place] arteries of extremities with intermittent claudication, bilateral legs (ICD-10 - I70.213) 08/30/2024 Foot drop, left foot (ICD-10 - M21.372) left LE foot drop. Patient will get MRI next month. He had neurology consult. He will continue ROM exercises and PT. Improving, no bracing. Plan Of Treatment Medication Medication Name Sig Start Date Stop Date Notes Cephalexin 250 MG 1 capsule Orally Onc e a day; Duration: 10 days 08/30/2024 09/09/2024 Treatment Notes Assessment Notes Tinea unguium FUNGAL TOENAILS: Discussed various treatment options for fungal toenails including debridement, topical antifungals, oral antifungals, toenail avulsion, or toenail matrixectomy. NAIL DEBRIDEMENT: Nails 1-5 Bilateral were debrided extensively with nail nippers and emery board, reducing length and girth to pink healthy tissue with any subungual debris and necrotic tissue removed Ingrowing nail Partial Nail Avulsion medial and lateral left 1st digit: I discussed various treatment options to the patient for their nail condition. The patient decided on non-permenant removal of the nail border. The consent was signed and placed in the patients chart and all questions were answered. Following skin prep, the toe was injected with 3ccs of a 1:1 mixture of 0.5% marcaine plain and 1% lidocaine plain. A digital tournequet was applied and the offending nail border was removed. The digital tourniquet was released and the toe was cleansed with isopropyl aclcohol. A dry sterile compressive dressing was applied and the patient was given soaking instructions. Cellulitis of left toe Rx given for anti biotic Foot drop, left foot left LE foot drop. Patient will get MRI next month. He had neurology consult. He will continue ROM exercises and PT. Improving, no bracing. Next Appt Details Follow Up: 10-12 Weeks, Reas on: At Risk Foot care, sooner if problems arise Provider Name:ROHINI CARDOSO, 11/01/2024 08:10:00 AM, [address] [place] [address], [phone], Progress Notes * Jayesh DINHDOB: [birth year] (69 yo M)Acc No.[id number]:08/30/2024 Patient: Jayesh CRUZ Provider: Poncho ROMAN :1955 A ge:69 Y S ex:Male Date:08/30/2024 [facility]:[address], [id number] Subjective: * Chief Complaints: * 1 . *General care. * HPI: H PI: General care P atient presents to the office for at risk foot care. Patient states that their nails are thickened, elongated and painful. Patient states that it is aggravated by shoe gear. Onset is gradual. Patient denies being diabetic., Patient denies taking blood thinners., Date last seen by Dr. Rodriguez was 07/2024., Initials mca. * ROS: G eneral / [...] complains of n umbness. * Medical History: N o Reported Medical History.Medical History Verified. * Surgical History: D enies Past Surgical History. * Hospitalization/Major Diagno stic Procedure: D enies Past Hospitalization. * Family History: N on-Contributory. * Social History: T obacco Use: T obacco Control (Standard) T obacco use: N onsmoker. * Medications: T aking Atorvastatin Calcium 40 MG Tablet Oral , Taking Lisinopril- hydroCHLOROthiazide 10-12.5 MG Tablet Oral , Taking Amoxicillin-Pot Clavulanate 875-125 MG Tablet Oral * Allergies: N .K.D.A. Objective: * Vitals: W t:270lbs, Wt-k.47 kg, [...] subungual debris. They are painful to palpation. Ingrown Nail N ail is incurvated on the bilateral border of the left great toenail. There is erythema present.There is mild purulent drainage noted. T here is pain on palpation.. V ascular: Dorsalis pedis pulse: 1 /4 [...] inea unguium - B35.1 (Primary) 2 . I ngrowing nail - L60.0 ?3. P ain in right toe(s) - M79.674 4 . C ellulitis of left toe - L03.032 5 . P ain in left toe(s) - M79.675 6 . A therosclerosis of [place] arteries of extremities with intermittent claudication, bilateral legs - I70.213 7 . F oot drop, left foot - M21.372 Plan: * Treatment: 2. I ngrowing nail Notes: Partial Nail Avulsion medial and lateral left 1st digit: I discussed various treatment options to the patient for their nail condition. The patient decided on non-permenant removal of the nail border. The consent was signed and placed in the patients chart and all questions were answered. Following skin prep, the toe was injected with 3ccs of a 1:1 mixture of 0.5% marcaine plain and 1% lidocaine plain. A digital tournequet was applied and the offending nail border was removed. The digital tourniquet was released and the toe was cleansed with isopropyl aclcohol. A dry sterile compressive dressing was applied and the patient was given soaking instructions. 3. C ellulitis of left toe Start Cephalexin Capsule, 250 MG, 1 capsule, Orally, Once a day, 10 days, 10, Refills 0. Notes: Rx given for antibiotic 4. F oot drop, left foot Notes: left LE foot drop. Patient will get MRI next month. He had neurology consult. He will continue ROM exercises and PT. Improving, no bracing. * Immunizations: Immunization record has been reviewed and updated. * Procedure Codes: 1 1750 REMOVAL OF NAIL BED, Modifiers: TA * Preventive Medicine: Screenings: F all risk screening F all Risk Assessment: N o falls in the past year. * Follow Up: 1 0-12 Weeks (Reason: At Risk Foot care, sooner if problems arise) * Billing Information: * Visit Code: 00612 Office Visit, Est Pt., Level 3. Modifiers: 25 * Procedure Codes: 34130 REMOVAL OF NAIL BED. Modifiers: TA * Electronic signature of KOTA ROMAN DPM on 10/16/2024 at 12:51 AM CDT Sign off status: Pending * Provider: Poncho ROMAN Date: 0 08/30/2024 Generated for Leigh Alejandro on: 0 10/16/2024 12:51 AM CDT History [...] Date last seen by Dr. Rodriguez was 07/2024., Initials mca Examination Category Sub-Category Detail Notes Category Not es Dermatologic Skin findings: Skin is thin, at rophic and lacking pedal hair, hemosiderin discoloration with shininess to LE bilateral Nail pathology: Nails 1, 2, 3, 4, an d 5 bilateral are elongated, thick, discolored, and dystrophic with subungual debris. They are painful to palpation Ingrown Nail Nail is incurvated o n the bilateral border of the left great toenail. There is erythema present.There is mild purulent drainage noted. There is pain on palpation. Neurologic Gross sensation Gross sensation is intact [...]
--- OUTSIDE RECORDS SUMMARY | 2024-09-13 03:20 | XMS_ITS ---
Author Organization [facility] Address [address] [place], [place] [address] Care Team Providers Care Voip Network Engineer Name Role Phone NAVID STROUD Unavailable [phone] Betty Rodriguez Unavailable Unavailable ROHINI ROMAN Unavailable [phone] REASON FOR VISIT follow up nail infection Encounters Encounter Location Date Provider Diagnosis [address] [id number] 09/13/2024 ROHINI ROMAN Plan Of Treatment Next Appt Details Provider Name:ROHINI CARDOSO, 11/01/2024 08:10:00 AM, [address] [place] [address], [phone], Progress Notes * Jayesh DINHDOB: 3 (69 yo M)Acc No.[id number]:09/13/2024 Patient: Jayesh CRUZ Provider: Poncho ROMAN :1955 A ge:69 Y S ex:Male Date:09/13/2024 Address:[facility] [address] [id number] Subjective: * Chief Complaints: * 1 . Follow up nail infection. * Medical History: Objective: * Vitals: Assessment: Plan: * Treatment: * Billing Information: * Visit Code: * Procedure Codes: * Electronic signature of KOTA ROMAN DPM on 10/16/2024 at 12:51 AM CDT Sign off status: Pending * Provider: Poncho ROMAN Date: 0 09/13/2024 Generated for Leigh quiles/Abram/eTransmitting on: 0 10/16/2024 12:51 AM CDT
[2024-09-28 13:47] VITALS: BMI 29.2
--- OUTSIDE RECORDS SUMMARY | 2024-10-16 00:51 | XMS_ITS | Patient Health Record ---
Author Organization [facility] Address [address] [place], [place] [id number] Care Team Providers Care Business Operations Consultant Name Role Phone NAVID STROUD Unavailable [phone] Betty Rodriguez Unavailable Unavailable MISSAEL CHUN Unavailable [phone] ROHINI ROMAN Unavailable [phone] Allergies No Known Allergies Reason For Referral No Information Medications Medication SIG (Take, Route, Frequency, Duration) Notes Start Date End Date Status Amoxicillin-Pot Clavulanate 875-125 MG Oral; Duration: 5 Days Activ e Lisinopril-hydroCHLOROthiaz teresita 10-12.5 MG Oral; Duration: 90 Days Ac tive Atorvastatin Calcium 40 MG Oral; Duration: 90 [...] Location Date Provider Diagnosis [facility] [address] [place], [place] [id number] 06/27/2024 ROHINI ROMAN Tinea unguium B35.1 ; Pain in right toe(s) M79.674 ; Pain in left toe(s) M79.675 ; Atherosclerosis of [place] arteries of extremities with intermittent claudication, bilateral legs I70.213 and Foot drop, left foot M21.[address] [id number] 08/30/2024 ROHINI ROMAN Tinea unguium B35.1 ; Ingrowing nail L60.0 ; Pain in right toe(s) M79.674 ; Cellulitis of left toe L03.032 ; Pain in left toe(s) M79.675 ; Atherosclerosis of [place] arteries of extremities with intermittent claudication, bilateral legs I70.213 and Foot drop, left foot M21.[address] [id number] 11/10/2023 MISSAEL CHUN Tinea unguium B35.1 ; Unspecified atherosclerosis of [place] arteries of extremities, bilateral legs I70.203 ; Type 2 diabetes mellitus with diabetic peripheral angiopathy without gangrene E11.51 ; Other hammer toe(s) (acquired), right foot M20.41 ; Other hammer toe(s) (acquired), left foot M20.42 ; Pain in right toe(s) M79.674 and Pain in left toe(s) M79.[address] [id number] 01/19/2024 MISSAEL CHUN Tinea unguium B35.1 ; Unspecified atherosclerosis of [place] arteries of extremities, bilateral legs I70.203 ; Type 2 diabetes mellitus with diabetic peripheral angiopathy without gangrene E11.51 ; Other hammer toe(s) (acquired), right foot M20.41 ; Other hammer toe(s) (acquired), left foot M20.42 ; Pain in right toe(s) M79.674 and Pain in left toe(s) M79.[address] [id number] 04/05/2024 NAVID STROUD Tinea unguium B35.1 ; Pain in right toe(s) M79.674 ; Pain in left toe(s) M79.675 and Atherosclerosis of [place] arteries of extremities with intermittent claudication, bilateral [...] and prescription treatments. 11/10/2023 Unspecified atherosclerosis of [place] arteries of extremities, bilateral legs (ICD-10 - I70.203) Patient educated on risks and aggravating factors of PVD, including conservative treatment options such as a diet and exercise regimen to aid in slowing progression of vascular disease 01/19/2024 Unspecified atherosclerosis of [place] arteries of extremities, bilateral legs (ICD-10 - [...] foot (ICD-10 - M20.41) 04/05/2024 Atherosclerosis of [place] arteries of extremities with intermittent claudication, bilateral legs (ICD-10 - I70.213) 01/19/2024 Other hammer toe(s) (acquired), right foot (ICD-10 - M20.41) 06/27/2024 Atherosclerosis of [place] arteries of extremities with intermittent claudication, bilateral legs (ICD-10 - I70.213) 08/30/2024 Cellulitis of left toe (ICD-10 - L03.032) Rx given for antibiotic 08/30/2024 Pain in left toe(s) (ICD-10 - M79.675) 06/27/2024 Foot drop, left foot (ICD-10 - [...] in right toe(s) (ICD-10 - M79.674) 08/30/2024 Atherosclerosis of [place] arteries of extremities with intermittent claudication, bilateral legs (ICD-10 - I70.213) 01/19/2024 Pain in left toe(s) (ICD-10 - M79.675) 11/10/2023 Pain in left toe(s) (ICD-10 - M79.675) 08/30/2024 Foot drop, left foot (ICD-10 - M21.372) left LE foot drop. Patient will get MRI next month. He had neurology consult. He will continue ROM exercises and PT. Improving, no bracing. Plan Of Treatment Next Appt Details Provider Name:ROHINI Kolby CARDOSO, 11/01/2024 08:10:00 AM, [address] [place] [address], [phone], Insurance Providers Payer Name Payer Address Payer Phone Subscriber Number Group Number Insured Name Patient Relationship to Insured Coverage Start Date Coverage End Date [employer] [address] [place] [phone] [id number] Jayesh DINH Self - patient is the insured
--- OUTSIDE RECORDS SUMMARY | 2024-10-16 00:51 | XMS_ITS | Clinical Summary ---
Author Organization [facility] Address [address] [place] [address] Care Team Providers Care Radiology Physician Name Role Phone Betty Rodriguez MD Primary Care Provider Allergies No known active allergies Medications No known medications Active Problems No known active problems Encounters Date Type Department Care Team Description 08/09/2024 11:40 AM CDT Lab [facility] Advanced Medicine ([facility]) [address] [id number] Foot drop, left; Neuropathy 08/09/2024 9:00 AM CDT Office Visit [facility] Medicine Neuro Muscle [address] [facility] [address] [place] [id number] Savage Macedo MD PhD Foot drop, left; Neuropathy from Last 3 Months Social History Tobacco Use Types Packs/Day Years Used Date Smoking Tobacco: Former Cigarettes Smokeless Tobacco: Never Tobacco Cessation:Counseling Given: Not Answered Sex and Gender Information Value Date Recorded Sex Assigned at Not on file 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 Gender Identity Not on file Sexual Orientation [...] Visit 65+ 2018 Covid-19 Vaccine (4 - 2024-2 6 season) 2024 12/31/2020, 05/19/2020, 04/27/2020 Influenza Vaccine (#1) 2024 [...] Blood (08/12/2024 2:13 PM CDT) Blood Narrative [facility] - 08/12/2024 2:13 PM CDT Blood draw complete Savage Macedo MD PhD LAB BLOOD ORDERABLES Final Result Performing Organization Address City/[facility]/ZIP Co de Phone Number [facility] Department of [employer] [place] [address] * Immunotyping, serum with interpretation (08/09/2024 10:36 AM CDT) [facility] Immunosubtraction Please see comment Comment: NO PARAPROTEIN DETECTED Reviewed and signed by Jaron Chandler MD, PhD 08/10/2024 Blood 08/09/2024 10:3 6 AM CDT 08/09/2024 11:08 AM CDT Savage Macedo MD PhD LAB BLOOD ORDERABLES Final Result [facility] [employer] [place] [address] * PR3 - proteinase 3, Ab (08/09/2024 10:36 AM CDT) Pathologist [facility] Proteinase 3 ab <0.2 <=0.9 Ab Index Comment: Interpretive Data Negative: <1 Ab Index Positive: > or = 1 Ab Index Current interpretive data was last revised on 2016. Blood 08/09/2024 10:3 6 AM CDT 08/09/2024 11:08 AM CDT Savage Macedo MD PhD LAB BLOOD ORDERABLES Final Result Performing Organization Address [facility] Co de Phone Number [facility] [employer] [place] [address] * MPO - myeloperoxidase antibody (08/09/2024 10:36 AM CDT) Myeloperoxidase ab <0.2 <=0.9 Ab Index Comment: Interpretive Data Negative: <1 Ab Index Positive: > or = 1 Ab Index Current interpretive data was last revised on 2016. Blood 08/09/2024 10:3 6 AM CDT 08/09/2024 11:08 AM CDT Savage Macedo MD PhD LAB BLOOD ORDERABLES Final Result Performing Organization Address [facility] [place] [address] * CRP (acute phase) (08/09/2024 10:36 AM CDT) Pathologist [facility] CRP 2.3 <=10.0 mg/L Blood 08/09/2024 10:3 6 AM CDT 08/09/2024 11:08 AM CDT Savage Macedo MD PhD LAB BLOOD ORDERABLES Final Result Performing Organization Address City/[facility] [place] [address] * (ABNORMAL) Vitamin B1 (08/09/2024 10:36 AM CDT) Thiamine (Vit B1) 197(H) 70 - 180 nmol/L [facility] Comment: ADDITIONAL INFORMATION This test was developed and its performance characteristics determined by [facility] in a manner consistent with CLIA requirements. This test has not been cleared or approved by the U.S. Food and Drug Administration. Test Performed by: [facility] [place] [address] Mems Engineer: Noah Rice Ph.D.; CLIA# [id number] Blood 08/09/2024 10:3 6 AM CDT 08/09/2024 11:23 AM CDT us Savage Macedo MD PhD LAB BLOOD ORDERABLES Final Result Performing Organization Address [facility] Co de Phone Number [facility] Department [place] [address] [facility] * Vitamin B6 (08/09/2024 10:36 AM CDT) Pyridoxal phosphate (Vit B6) 34 5 - 50 mcg/L [facility] Comment: ADDITIONAL INFORMATION This test was developed and its performance characteristics determined by [facility] in a manner consistent with CLIA requirements. This test has not been cleared or approved by the U.S. Food and Drug Administration. Test Performed by: [facility] - [address] [address] Mems Engineer: Noah Rice Ph.D.; CLIA# [id number] Blood 08/09/2024 10:3 6 AM CDT 08/09/2024 11:23 AM CDT us Savage Macedo MD PhD LAB BLOOD ORDERABLES Final Result Performing Organization Address [facility]/ZIP Co de Phone Number [facility] Department [employer] [place] [address] [facility] * IgA (08/09/2024 10:36 AM CDT) Immunoglobulin A 174 70 - 400 mg/dL Blood 08/09/2024 10:3 6 AM CDT 08/09/2024 11:08 AM CDT Savage Macedo MD PhD LAB BLOOD ORDERABLES Final Result Performing Organization Address [facility] [place] [address] * IgM (08/09/2024 10:36 AM CDT) [facility] Immunoglobulin M 128 40 - 230 mg/dL Blood 08/09/2024 10:3 6 AM CDT 08/09/2024 11:08 AM CDT Savage Macedo MD PhD LAB BLOOD ORDERABLES Final Result Performing Organization Address [facility] Co de Phone Number [facility] [employer] [place] [address] * IgG (08/09/2024 10:36 AM CDT) [facility] Immunoglobulin G 1,167 700 - 1,600 mg/dL Blood 08/09/2024 10:3 6 AM CDT 08/09/2024 11:08 AM CDT Savage Macedo MD PhD LAB BLOOD ORDERABLES Final Result Performing Organization Address City/[facility] Co de Phone Number [facility] [place] [address] * Neuromuscular Testing Blood (08/09/2024 12:00 AM CDT) Blood (Serum) 08/09/2024 08/09/2024 Narrative [facility] - 08/28/2024 1:50 PM CDT Please click on the PDF link to view the report containing this result Savage Macedo MD PhD LAB PATHOL OGY ORDERABLES Final Result [facility] Room [facility] [address] [place] [address] from [address] [place] [address] [place] [address] [facility] MEDICARE [facility] MEDICARE Care Teams Radiology Physician Relationship Specialty Start Date End Date Betty Rodriguez MD [address] [phone] PCP - General Internal Medicine 07/18/24
[2024-10-16 09:08] VITALS: BP 119/63; PULSE 64; RESP 16; TEMP 36.3; O2SAT 97
[2024-10-16] MEDS: LACTATED RINGERS 1,000 ML 150 ML IV CONT (09:16)
--- NOTE | 2024-10-16 09:37 | P.PNAN_ITS ---
Anes - Initial Pre Proc Eval Procedure: Operation Date: 10/16/24 10:00 Proposed Procedures p Diagnostic Colonoscopy - Rajesh Mayers MD Date/Time: 10/16/24 09:37 Surgeon: Rajesh Mayers MD Pre Op Diagnosis: Other specified noninfective gastroenteritis and c Patient Data Age: 69 Gender: M Height: 1.83 m Weight: 101.3 kg Last Vital Signs Temp 97.3 F L 10/16/24 09:08 Pulse 64 10/16/24 09:08 Resp 16 10/16/24 09:08 BP 119/63 10/16/24 09:08 Pulse Ox 97 10/16/24 09:08 O2 Del Method Room Air 10/16/24 09:08 Allergies Allergy/AdvReac Type Severity Reaction Status Date / Time No Known Allergies Allergy Verified 10/16/24 09:06 Home Medications ?Medication ?Instructions ?Recorded ?Confirmed ?Type guselkumab 100 mg/mL subcutaneous 100 mg subcut .every 8 weeks #1 mL 03/13/24 09/28/24 Rx auto-injector (Tremfya) Patient hx anesthesia problems: none Family hx anesthesia problems: none Results Review: All pre-operative results and documents have been reviewed as part of the pre- operative evaluation. [facility] Past Medical History Medical History Chronic diarrhea Hyponatremia Dehydration Lower abdominal pain Dyslipidemia Hypertension Surgical History Surgical History H/O gastric sleeve Family History Family History Mother Acute myocardial infarction Colon cancer Diabetes mellitus Social History Social History Smoking status: Former smoker Alcohol intake: current Drinks per week: 14 Substance use: never Substance use type: does not use Do You Feel Safe in your Home?: Yes Lack of Transportation: No Lack of Food: Never True Current Housing: I Have Housing Concerned About Future Housing: No Difficulty Paying Gas/Electric Bills: No Difficulty Paying for Meds: No Currently Unemployed: No Education: High School Diploma/GED Difficulty w/ Childcare or Family Care: No Spiritual care concerns: No Anes - Eval Final PreProcedure Day of Procedure 10/16/24 09:37 Patient weight: obese Heart: regular rate and rhythm Lungs: clear to auscultation Airway: Mallampati scale class II Neurological: alert and oriented Last oral intake: >/= 8 hours ASA classification: III Emergent: no Anesthetic plan: proceed Anesthesia type and monitoring: general GIVS and standard monitoring Results Review: All pre-operative results and documents have been reviewed as part of the pre- operative evaluation. Informed Consent: The patient's anesthetic plan and its attendant risks and benefits were discussed with the patient/family/POA. Questions were solicited and answers provided to the satisfaction of the patient/family/POA.
--- NOTE | 2024-10-16 10:24 | PM.HPGS ---
History of Present Illness History of Present Illness Consent: Risks, benefits, and alternatives have been discussed and questions answered. Patient agrees to proceed with procedure. Chief complaint: Other specified noninfective gastroenteritis and c Narrative: Jayesh Anderson is a 69 year old male diagnosed with UC 10/2023, did not respond to mesalamine and started on tremfya 02/2024 and much better right now. Review of Systems Review of Systems: All systems reviewed & are unremarkable except as noted in HPI and below PMFSH Past Medical History Medical History Chronic diarrhea Hyponatremia Dehydration Lower abdominal pain Dyslipidemia Hypertension Surgical History Surgical History H/O gastric sleeve Family History Family History Mother Acute myocardial infarction Colon cancer Diabetes mellitus Social History Social History Smoking status: Former smoker Alcohol intake: current Drinks per week: 14 Substance use: never Substance use type: does not use Do You Feel Safe in your Home?: Yes Lack of Transportation: No Lack of Food: Never True Current Housing: I Have Housing Concerned About Future Housing: No Difficulty Paying Gas/Electric Bills: No Difficulty Paying for Meds: No Currently Unemployed: No Education: High School Diploma/GED Difficulty w/ Childcare or Family Care: No Spiritual care concerns: No Meds Home Medications and Allergies Home Medications ?Medication ?Instructions ?Recorded ?Confirmed ?Type guselkumab 100 mg/mL subcutaneous 100 mg subcut .every 8 weeks #1 mL 03/13/24 09/28/24 Rx auto-injector (Tremfya) Allergies Allergy/AdvReac Type Severity Reaction Status Date / Time No Known Allergies Allergy Verified 10/16/24 09:06 Vital Signs Vital Signs - 24 hr 10/16/24 09:08 Temperature 97.3 F L Pulse Rate 64 Respiratory Rate 16 Blood Pressure 119/63 Pulse Oximetry 97 Oxygen Delivery Room Air Exam Const: General: comfortable and no acute distress HENMT: Face/Nose/Sinus: Normal nares present Eyes: General: appearance normal, both eyes and all related structures Neck: Neck: no JVD Resp: Auscultation: clear to auscultation bilaterally Cardio: Rate: regular rate Rhythm: regular rhythm GI: Inspection: non-distended GI Palp: Yes Soft to palpation Skin: General skin exam: normal color Neuro: Speech: normal speech Extrem: General: normal to inspection Psych: Mental Status: mental status grossly normal Assessment and Plan Assessment and plan (1) Ulcerative colitis: Qualifiers: Ulcerative colitis location: ulcerative pancolitis Code(s): K51.90 - Ulcerative colitis, unspecified, without complications Status: Acute Assessment and Plan: clinically much better since using tremfya
--- NOTE | 2024-10-16 10:38 | S_PTH ---
PATIENT: Jayesh Anderson LOC: [facility]#:[id number] AGE/SX: 69/M ROOM: RE10/16/[address]: Rajesh Mayers MD : 1955 BED: DIS: 10/16/2024 SPEC #: [id number] RECD: 10/16/24 10:54 STATUS: HUMPHREY REJaylene #: [id number] MARIELA: 10/16/24 10:[address]: Rajesh Mayers DEPT: [facility] Surgical RECD BY: Candie Person ENTERED: 10/16/24 10:54 SP TYPE: Surgical OTHR DR: Betty Rodriguez MD Tissues: A - Colon Biopsy B - Colon Biopsy Procedures: Hematoxylin and Eosin Stain Gross and Microscopic Level 4
[2024-10-16 10:43] VITALS: BP 104/64; PULSE 65; RESP 23; O2SAT 99
[2024-10-16 10:53] VITALS: BP 123/62; PULSE 60; RESP 21; O2SAT 98
[2024-10-16 11:03] VITALS: BP 119/68; PULSE 52; RESP 18; O2SAT 96
== END 2024-10-16 11:13 | disposition home or self-care (01) ==
PROVIDERS: PCP Internal Medicine; Visit Provider Internal Medicine Gastroenterology
PROC: 0DJD8ZZ Inspection of Lower Intestinal Tract, Via Natural or Artificial Opening Endoscopic (ICD-10-PCS; CPT 45378; principal; 2024-10-16 10:00)
DX: K51.811 Other ulcerative colitis with rectal bleeding (principal); K64.8 Other hemorrhoids; E87.1 Hypo-osmolality and hyponatremia; E78.5 Hyperlipidemia, unspecified; I10 Essential (primary) hypertension; E66.9 Obesity, unspecified; Z68.30 Body mass index [BMI] 30.0-30.9, adult; Z98.84 Bariatric surgery status; Z87.891 Personal history of nicotine dependence; Z80.0 Family history of malignant neoplasm of digestive organs; Z82.49 Family history of ischemic heart disease and other diseases of the circulatory system
CPT/HCPCS: 45380; 88305; J2003; J2704; J7120